=== PATIENT | female | born 1945 | race Caucasian/White ===

== ENCOUNTER 2016-12-01 02:04 | Inpatient (IN) | payer MEDICARE, OTHER ==
[2016-12-01] MEDS ORDERED: LIDOCAINE 1%/EPINEPHRINE INJ 20 ML VIAL INJ ONE (03:20)
--- NOTE | 2016-12-01 03:35 | ER Document Report ---
ED General - General Chief Complaint: Facial Injury Stated Complaint: FALL,HEAD LACERATION Notes: Patient is a 70-year-old female presents for complaint of fall. Patient says she got tackled up and her oxygen cord and fell hitting left side of her head as well as her left knee. She denies pain anywhere other than her left knee and her left hand. She does take aspirin. No other blood thinners. No other complaints at this time. She denies neck pain. She has chronic back pain but says she has no new pain in her back from the fall. TRAVEL OUTSIDE OF THE [place] IN LAST 30 DAYS: No - Related Data Allergies/Adverse Reactions: No Known Allergies Allergy (Verified 02/03/12 09:37) Past Medical History - Social History Smoking Status: Former Smoker Frequency of alcohol use: None Drug Abuse: None Family History: Reviewed & Not Pertinent Patient has suicidal ideation: No Patient has homicidal ideation: No - Past Medical History Cardiac Medical History: Reports: Hx Congestive Heart Failure - Ejection fraction of less than 25%, May 2014., Hx Coronary Artery Disease, Hx Hypertension Denies: Hx DVT, Hx Heart Attack, Hx Hypercholesterolemia, Hx Pulmonary Embolism Pulmonary Medical History: Reports: Hx COPD - 4L nasal O2 at home, Hx Pneumonia Denies: Hx Asthma Neurological Medical History: Denies: Hx Cerebrovascular Accident, Hx Seizures Endocrine Medical History: Denies: Hx Diabetes Mellitus Type 1, Hx Diabetes Mellitus Type 2, Hx Hyperthyroidism, Hx Hypothyroidism Renal/ Medical History: Denies: Hx Peritoneal Dialysis GI Medical History: Reports: Hx Gastroesophageal Reflux Disease - Mild, Hx Hiatal Hernia. Denies: Hx Cirrhosis, Hx Hepatitis, Hx Ulcer Musculoskeltal Medical History: Reports Hx Arthritis Psychiatric Medical History: Reports: Hx Depression Infectious Medical History: Denies: Hx Hepatitis Past Surgical History: Reports: Hx Cholecystectomy, Hx Orthopedic Surgery - "back surgery". Denies: Hx Hysterectomy, Hx Mastectomy, Hx Open Heart Surgery, Hx Pacemaker - Immunizations Hx Diphtheria, Pertussis, Tetanus Vaccination: Yes Hx Pneumococcal Vaccination: 08/06/13 Review of Systems - Review of Systems Notes: My Normal Review Basic REVIEW OF SYSTEMS: CONSTITUTIONAL : Denies fever, chills, or sweats. Denies recent illness. EENT: Denies eye, ear, throat, or mouth pain or symptoms. Denies nasal or sinus congestion. CARDIOVASCULAR: Denies chest pain. RESPIRATORY: Denies cough, cold, or chest congestion. Denies shortness of breath, difficulty breathing, or wheezing. GASTROINTESTINAL: Denies abdominal pain. Denies nausea, vomiting, or diarrhea. Denies constipation. Last BM: GENITOURINARY: Denies difficulty urinating, painful urination, burning, frequency, or blood in urine. MUSCULOSKELETAL: Left knee pain SKIN: Denies rash or skin lesions. NEUROLOGICAL: Denies altered mental status or loss of consciousness. Has a headache. Denies weakness or paralysis or loss of use of either side. Denies problems with gait or speech. Denies sensory or motor loss. ALL OTHER SYSTEMS REVIEWED AND NEGATIVE. Physical Exam - Vital signs Vitals: Resp Pulse Ox 11 L 100 12/01/16 05:51 12/01/16 05:51 - Notes Notes: General Appearance: Well nourished, alert, cooperative, no acute distress, no obvious discomfort. Well-appearing Vitals: reviewed, See vital signs table. Head: Bruising and laceration of the left eye. Eyes: PERRL, EOMI, Conjuctiva clear Mouth: No decreasd moisture Neck: Supple, no neck tenderness, No thyromegaly Lungs: No wheezing, No rales, No rhonci, No accessory muscle use, good air exchange bilaterally. Heart: Normal rate, Regular rythm, No murmur, no rub Abdomen: Normal BS, soft, No rigidity, No abdominal tenderness, No guarding, no rebound, no abdominal masses, no organomegaly Back: No reducible tenderness to palpation of thoracic or lumbar spine. Extremities: strength 5/5 in all extremities, good pulses in all extremities, no swelling or tenderness in the extremities, no edema. Skin: warm, dry, appropriate color, no rash Neuro: speech clear, oriented x 3, normal affect, responds appropriately to questions. Cranial nerves II through XII are intact. Distal sensation intact. Patient moves all extremities without difficulty. Course - Vital Signs Vital signs: Temp Pulse Resp BP Pulse Ox 25 H 137/57 H 96 12/01/16 07:01 12/01/16 07:01 12/01/16 07:01 - Laboratory Result Diagrams: 12/01/16 06:17 12/01/16 06:17 Laboratory results interpreted by me: 12/01/16 12/01/16 12/01/16 05:15 06:17 06:17 RBC 3.11 L Hgb 7.7 L Hct 25.7 L MCH 24.8 L MCHC 30.0 L RDW 15.1 H VBG pH 7.24 L VBG pCO2 106.3 H* VBG HCO3 44.0 H Chloride 93 L Carbon Dioxide 39 H Creatinine 0.48 L - EKG Interpretation by Me Additional EKG results interpreted by me: 12/01/16 06:15 EKG is reviewed and interpreted by me. EKG shows sinus tachycardia with rate of [address] segment elevation or depression. No ischemic T wave inversions. [place] level, QRS duration are within normal range. QTc interval slightly prolonged. Old EKG for comparison is from 09/08/2016. - Transfer of Care Notes: 12/01/16 06:22 Patient's daughter arrived and informed me that the patient has been much more sleepier than usual. She says in the past when this has occurred her, doxepin level is very high. Patient has not been confused or altered for me; however, I do trust with the daughters saying as she seems very reliable. I did obtain a venous blood gas which showed that her CO2 is 106 and her pH was 7.24. Patient is supposed to have BiPAP at home but has not yet been set up. There is some difficulty between the medical supply company ended insurance company and therefore her BiPAP machine has been delayed. At this time I do not think patient can go home being that she already had significant respiratory acidosis. I will place on BiPAP. I will speak with the hospitalist for consideration for admission. Dictation of this chart was performed using voice recognition software; therefore, there may be some unintended grammatical errors. 12/01/16 07:43 I did speak with the hospitalist. He is agreeable to admitting the patient. Patient only other abnormal finding on labs is that she does have anemia with hemoglobin 7.7. I did review her previous hemoglobin and usually ranging or from 8-9. She denies any recent bleeding, blood in her stool, black or tarry stools. Patient continues to clinically look well. Procedures - Laceration/Wound Repair head Wound length (cm): 1 Wound's Depth, Shape: Superficial Laceration pre-procedure: Chloraprep applied Wound explored: Clean Irrigated w/ Saline (mLs): 10 Wound Repaired With: Sutures Suture Size/Type: 5:0, Ethilon Number of Sutures: 2 Complications: No Discharge - Discharge Clinical Impression: Hypercapnia Anemia Qualifiers: Anemia type: unspecified type Qualified Code(s): D64.9 - Anemia, unspecified Scalp laceration Qualifiers: Encounter type: initial encounter Qualified Code(s): S01.01XA - Laceration without foreign body of scalp, initial encounter Strain of knee and leg, left Qualifiers: Encounter type: initial encounter Qualified Code(s): S86.912A - Strain of unspecified muscle(s) and tendon(s) at lower leg level, left leg, initial encounter Condition: Stable Disposition: ADMITTED INPATIENT Admitting Provider: Hospitalist Unit Admitted: [facility]
[2016-12-01 05:24] LABS: VENOUS BLOOD BASE EXCESS 14.3 mmol/L; VENOUS BLOOD PH 7.24 (7.30-7.42)
[2016-12-01 05:31] LABS: VENOUS BLOOD PCO2 106.3 mmHg (35-63)
[2016-12-01 06:34] LABS: ABSOLUTE EOSINOPHILS # (AUTO) 0.1 10^3/uL (0.0-0.6); ABSOLUTE LYMPHOCYTES (AUTO) 1.7 10^3/uL (0.5-4.7); ABSOLUTE MONOCYTES (AUTO) 0.9 10^3/uL (0.1-1.4); ABSOLUTE NEUT (AUTO) 6.7 10^3/uL (1.7-8.2); BASOPHILS % (AUTO) 0.3 % (0-2); EOSINOPHILS % (AUTO) 1.5 % (0-6); HEMATOCRIT 25.7 % (36.0-47.0); HGB HCT DIFFERENCE -2.6; LYMPHOCYTES % (AUTO) 18.1 % (13-45); MEAN CORPUSCULAR HEMOGLOBIN 24.8 pg (27.0-33.4); MEAN CORPUSCULAR VOLUME 83 fl (80-97); RED BLOOD COUNT 3.11 10^6/uL (3.72-5.28); RED CELL DISTRIBUTION WIDTH 15.1 % (11.5-14.0); SEGMENTED NEUTROPHILS % (AUTO) 71.1 % (42-78); WHITE BLOOD COUNT 9.5 10^3/uL (4.0-10.5)
[2016-12-01 06:39] LABS: HEMOGLOBIN 7.7 g/dL (12.0-15.5)
[2016-12-01 06:45] LABS: BLOOD UREA NITROGEN 11 mg/dL (7-20); CALCIUM 9.1 mg/dL (8.4-10.2); CHLORIDE 93 mmol/L (98-107); CREATININE RESULT 0.48 mg/dL (0.52-1.25); GLUCOSE 95 mg/dL (75-110); POTASSIUM 4.3 mmol/L (3.6-5.0)
[2016-12-01 06:52] LABS: ANION GAP 8 (5-19); CARBON DIOXIDE 39 mmol/L (22-30)
[2016-12-01] MEDS ORDERED: ACETAMINOPHEN 650 MG SUPP.RECT PR PRN (08:02)
[2016-12-01] MEDS ORDERED: ONDANSETRON HCL INJ/PF 4 MG/2 ML SDV IV PRN (08:02)
[2016-12-01] MEDS ORDERED: ALBUTEROL SULFATE 0.083% NEB 2.5 MG/3 ML AMPUL NEB PRN (08:02)
[2016-12-01] MEDS ORDERED: DEXTROSE 5%-1/2 NORMAL SALINE 1,000 ML IV PRN (08:09)
[2016-12-01] MEDS ORDERED: NORMAL SALINE 250 ML IV PRN ×2 (08:10)
[2016-12-01] MEDS ORDERED: METHYLPREDNISOLONE INJ 40 MG/1 ML SDV IV SCH (08:15)
[2016-12-01] MEDS ORDERED: NITROGLYCERIN 10 MG (0.4 MG/HR) PATCH.TD24 TD PRN (08:26)
[2016-12-01] MEDS ORDERED: FUROSEMIDE 20 MG TABLET PO PRN (08:26)
[2016-12-01 08:28] LABS: ALANINE AMINOTRANSFERASE 20 U/L (9-52); ALBUMIN 3.3 g/dL (3.5-5.0); ALKALINE PHOSPHATASE 79 U/L (38-126); ASPARTATE AMINO TRANSFERASE 12 U/L (14-36); BILIRUBIN,TOTAL 0.2 mg/dL (0.2-1.3); TOTAL PROTEIN 5.8 g/dL (6.3-8.2)
[2016-12-01 09:41] LABS: FOLATE > 20.00 ng/mL (>2.76)
[2016-12-01 09:56] LABS: APPEARANCE,URINE CLEAR; BILIRUBIN,URINE NEGATIVE (NEGATIVE); GLUCOSE, URINE NEGATIVE (NEGATIVE); KETONES,URINE NEGATIVE (NEGATIVE); LEUKOCYTE ESTERASE,URINE SMALL (NEGATIVE); NITRITE,URINE NEGATIVE (NEGATIVE); PROTEIN,URINE NEGATIVE (NEGATIVE); URINE SPECIFIC GRAVITY 1.008; UROBILINOGEN,URINE NEGATIVE mg/dL (<2.0)
[2016-12-01] MEDS ORDERED: (PENDING PHARMACY ID) (Citalopram Hydrobromide [Celexa 40 Mg Tablet] 1 TAB) PO SCH (10:00)
[2016-12-01] MEDS ORDERED: (PENDING PHARMACY ID) (Roflumilast [Daliresp 500 Mcg Tablet] 500 MCG) PO SCH (10:00)
[2016-12-01] MEDS: DILTIAZEM HCL 180 MG CAPSULE.CR PO SCH (10:12)
[2016-12-01] MEDS: PREDNISONE 20 MG TABLET PO SCH (10:13)
[2016-12-01] MEDS: ASPIRIN 81 MG TABLET, CHEWABLE PO SCH (10:13)
[2016-12-01] MEDS: CITALOPRAM HYDROBROMIDE 20 MG TABLET PO SCH (10:14)
[2016-12-01] MEDS: POTASSIUM CHLORIDE 10 MEQ TABLET.SA PO SCH ×2 (10:14→17:15)
[2016-12-01] MEDS: CARVEDILOL 12.5 MG TABLET PO SCH ×2 (10:14→21:12)
[2016-12-01] MEDS: FLUTICASONE NASAL SPRAY 50 MCG/SPRY 120 SPRAY/16 GM NASL SCH (10:43)
[2016-12-01] MEDS: FLUTICASONE/SALMETEROL DISKUS 500-50 MCG/DOSE IH SCH ×2 (10:43→21:13)
[2016-12-01] MEDS: ROFLUMILAST 500 MCG TABLET PO SCH (10:44)
[2016-12-01] MEDS: TIOTROPIUM BROMIDE DPI 5 CAP/KIT (18 MCG/CAP) IH SCH (10:44)
[2016-12-01 11:15] LABS: ARTERIAL BLOOD BASE EXCESS 11.8 mmol/L; ARTERIAL BLOOD O2 SATURATION 98.1 % (94-98)
--- NOTE | 2016-12-01 12:54 | EKG REPORT ---
SEVERITY:- ABNORMAL ECG - SINUS TACHYCARDIA BORDERLINE R WAVE PROGRESSION, ANTERIOR LEADS NONSPECIFIC T ABNORMALITIES, LATERAL LEADS : Confirmed by: Susan Ho MD 01-Dec-2016 12:53:50
[2016-12-01] MEDS: ALBUTEROL SULFATE 0.083% NEB 2.5 MG/3 ML AMPUL NEB SCH ×2 (14:43→19:34)
--- NOTE | 2016-12-01 16:47 | PDOC H&P ---
History of Present Illness Admission Date/PCP: 12/01/16 08:02 KAILEE WOLF, Patient complains of: Drowsiness History of Present Illness: SMITH IRAHETA is a 70 year old female that presents to the emergency department after sustaining a fall resulting in a facial laceration that was sutured in the emergency department. Patient has had issues with somnolence associated with her oxygen dependent COPD. She was noted to be hypercapnic in the emergency department and placed on BiPAP. At the time of my evaluation she is alert and oriented and answers questions appropriately. She request to have BiPAP taken off. She also requested something to eat. Past Medical History Cardiac Medical History: Reports: Congestive Heart Failure - Ejection fraction of less than 25%, May 2014., Coronary Artery Disease, Hypertension Denies: DVT, Myocardial Infarction, Hyperlipidema, Pulmonary Embolism Pulmonary Medical History: Reports: Chronic Obstructive Pulmonary Disease (COPD ) - 4L nasal O2 at home, Pneumonia Denies: Asthma Neurological Medical History: Denies: Seizures Endocrine Medical History: Denies: Diabetes Mellitus Type 1, Diabetes Mellitus Type 2, Hyperthyroidism, Hypothyroidism GI Medical History: Reports: Gastroesophageal Reflux Disease - Mild, Hiatal Hernia Denies: Cirrhosis, Hepatitis Musculoskeltal Medical History: Reports: Arthritis Psychiatric Medical History: Reports: Depression Hematology: Reports: Anemia Denies: Sickle Cell Disease Past Surgical History Past Surgical History: Reports: Cholecystectomy, Orthopedic Surgery - "back surgery", Other - Last colonoscopy many years ago Denies: Amputation, Hysterectomy, Mastectomy, Pacemaker Social History Information Source: Patient Lives with: Family - This with Smoking Status: Former Smoker Number of Years Smokin Last Time Smoked: 09/06/2016 Frequency of Alcohol Use: None Hx Recreational Drug Use: No Drugs: None Hx Prescription Drug Abuse: No - Advance Directive Resuscitation Status: Full Code Family History Family History: COPD Parental Family History Reviewed: Yes Children Family History Reviewed: Yes Sibling(s) Family History Reviewed.: Yes Medication/Allergy Home Medications: Nitroglycerin [Nitro-Dur 10 mg (0.4MG/Hr) Transdermal Patch] 1 patch TD QAM PRN 03/22/14 Aspirin [Aspirin 81 mg Chewable Tablet] 81 mg NG DAILY #0 tab.chew 03/30/14 Esomeprazole Magnesium [Nexium] 40 mg PO BID 03/30/14 Potassium Chloride [Klor-Con 10 Meq Tablet.sa] 20 meq PO BID 12/07/14 Roflumilast [Daliresp 500 mcg Tablet] 500 mcg PO DAILY 12/07/14 Fluticasone Propionate [Flonase Nasal [place] 50 Mcg/[place] 16 gm] 1 spray NASL DAILY 03/18/15 Carvedilol [Coreg 6.25 mg Tablet] 12.5 mg PO Q12 #0 tablet 03/24/15 Albuterol Sulfate [Albuterol Sulfate 2.5mg/3 mL] 1 vial IH Q6 06/25/15 Albuterol Sulfate [Ventolin Hfa] 2 puff IH Q4 PRN 06/25/15 Citalopram Hydrobromide [Celexa 40 mg Tablet] 1 tab PO DAILY 06/25/15 Fluticasone/Salmeterol [Advair 500-50 Diskus 14 Dose/Diskus] 1 inh IH Q12H 06/25 Guaifenesin/Pseudoephedrne HCl [Mucinex D ER 1,200-120 mg Tab] 1 each PO Q12 Nitroglycerin [Nitrostat 0.4 mg (1/150 Gr) Tabs 25/Bottle] 1 tab SL Q5MP PRN Pramipexole Di-HCl [Pramipexole Dihydrochloride] 0.25 mg PO QHS 06/25/15 Triamcinolone Acetonide [Aristocort 0.1% Cream] 1 applic TP TID 06/25/15 Montelukast Sodium [Singulair 10 mg Tablet] 10 mg PO QHS #0 tablet 06/28/15 Diltiazem HCl [Cardizem Cd 180 mg Capsule] 180 mg PO DAILY #0 capsule.cr Ipratropium/Albuterol Sulfate [Duoneb 3 ml Ampul] 3 ml NEB [id number] #0 vial.neb 03/28/16 Tiotropium [place] [Spiriva Handihaler 5 Cap/Kit (18 Mcg/Cap)] 1 cap IH DAILY # 0 kit 03/28/16 Furosemide [Lasix 20 mg Tablet] 20 mg PO ASDIR PRN 09/09/16 Acetaminophen [Tylenol 325 mg Tablet] 650 mg PO Q4HP PRN #0 tablet 09/15/16 Allergies/Adverse Reactions: No Known Allergies Allergy (Verified 02/03/12 09:37) Review of Systems Constitutional: ABSENT: chills, fever(s), headache(s), weight gain, weight loss Eyes: ABSENT: visual disturbances Ears: ABSENT: hearing changes Cardiovascular: ABSENT: chest pain, dyspnea on exertion, edema, orthropnea, palpitations Respiratory: ABSENT: cough, hemoptysis Gastrointestinal: ABSENT: abdominal pain, constipation, diarrhea, hematemesis, hematochezia, nausea, vomiting Genitourinary: ABSENT: dysuria, hematuria Musculoskeletal: ABSENT: joint swelling Integumentary: ABSENT: rash, wounds Neurological: ABSENT: abnormal gait, abnormal speech, confusion, dizziness, focal weakness, syncope Psychiatric: ABSENT: anxiety, depression, homidical ideation, suicidal ideation Endocrine: ABSENT: cold intolerance, heat intolerance, polydipsia, polyuria Hematologic/Lymphatic: ABSENT: easy bleeding, easy bruising Physical Exam Vital Signs: Temp Pulse Resp BP Pulse Ox 97.9 F 74 25 H 101/56 L 99 12/01/16 02:11 12/01/16 15:39 12/01/16 14:46 12/01/16 13:00 12/01/16 14:46 Intake & Output 11/30/16 12/01/16 12/02/16 06:59 06:59 06:59 Weight 58.1 kg PHYSICAL EXAM: GENERAL: Appears well, no acute distress HEENT: Normocephalic, no scleral icterus, conjunctiva clear, EOEM intact, PERRLA , moist mucous membranes NECK: trachea midline, no thyromegally RESPIRATORY: Faint bilateral wheezes, good air excursion CARDIAC: Regular rate and rhythm, no murmur/garrison/rub ABDOMEN: Soft, no distension, no tenderness, no guarding, normal bowel sounds, negative Gonzalez sign RECTAL: deferred : deferred EXTREMITIES: No edema, cyanosis, clubbing MUSCULOSKELETAL: No joint swelling or deformity VASCULAR: normal peripheral pulses NEUROLOGIC: Alert, oriented to person/place/time, normal speech, cranial nerves grossly intact, 5/5 strength in all extremities, tactile sensation intact in all extremities SKIN: Laceration over left eye with sutures intact. PSYCHIATRIC: Normal mood, normal affect Results Laboratory Results: 12/01/16 12/01/16 12/01/16 08:24 09:17 09:22 Carbonic Acid HCO3/H2CO3 Ratio ABG pH ABG pCO2 ABG pO2 ABG HCO3 ABG O2 Saturation ABG Base Excess FiO2 Urine Color YELLOW Urine Appearance CLEAR Urine pH 6.0 Ur Specific [place] 1.008 Urine Protein NEGATIVE Urine Glucose (UA) NEGATIVE Urine Ketones NEGATIVE Urine Blood SMALL H Urine Nitrite NEGATIVE Ur Leukocyte Esterase SMALL H Urine WBC (Auto) 3 Urine RBC (Auto) 1 Stool Occult Blood NEGATIVE Blood Type O POSITIVE Antibody Screen NEGATIVE 12/01/16 10:38 Carbonic Acid 2.88 H HCO3/H2CO3 Ratio 14:1 ABG pH 7.27 L ABG pCO2 95.6 H* ABG pO2 133.8 H ABG HCO3 42.5 H ABG O2 Saturation 98.1 H ABG Base Excess 11.8 FiO2 2L Urine Color Urine Appearance Urine pH Ur Specific [place] Urine Protein Urine Glucose (UA) Urine Ketones Urine Blood Urine Nitrite Ur Leukocyte Esterase Urine WBC (Auto) Urine RBC (Auto) Stool Occult Blood Blood Type Antibody Screen Impressions: Head CT 12/01/16 03:19 IMPRESSION: No acute findings. Knee X-Ray 12/01/16 03:19 IMPRESSION: Moderate left knee effusion. Moderate osteoarthritis. Chest X-Ray 12/01/16 05:39 IMPRESSION: COPD. NO ACUTE RADIOGRAPHIC FINDING IN THE CHEST. Assessment & Plan - Diagnosis (1) Encephalopathy Is this a current diagnosis for this admission?: YesPlan: Resolved. Due to hypercapnea. (2) COPD exacerbation Is this a current diagnosis for this admission?: YesPlan: Start prednisone, nebulizer treatments. (3) Facial laceration Is this a current diagnosis for this admission?: YesPlan: Sutured in the emergency department. Patient will need suture removal on 2016. (4) Acute and chronic respiratory failure ([id number]) Qualifiers: Respiratory failure complication: hypoxia and hypercapnia Qualified Code(s): J96.21 - Acute and chronic respiratory failure with hypoxia Is this a current diagnosis for this admission?: YesPlan: Patient is chronic oxygen dependent. She is a chronic CO2 retainer so recommend titrating oxygen down to maintain O2 sat 80-92%. (5) Anemia Qualifiers: Anemia type: unspecified type Qualified Code(s): D64.9 - Anemia, unspecified Is this a current diagnosis for this admission?: YesPlan: Check Hemoccult of stool. Transfuse 1 unit PRBC. Check anemia panel. Consult hematology. Patient would probably benefit from outpatient GI workup as well. (6) DVT prophylaxis Is this a current diagnosis for this admission?: YesPlan: SCDs. Avoid pharmacologic prophylaxis secondary to anemia requiring transfusion and head injury. - Time Time Spent: Greater than 70 Minutes
[2016-12-01] MEDS: LANSOPRAZOLE 30 MG TAB.RAP.DR PO SCH (17:15)
[2016-12-01] MEDS: MONTELUKAST SODIUM 10 MG TABLET PO SCH (21:11)
[2016-12-01] MEDS: PRAMIPEXOLE DI-HCL 0.25 MG TABLET PO SCH (21:11)
[2016-12-01 23:50] LABS: ABSOLUTE LYMPHOCYTES (AUTO) 1.1 10^3/uL (0.5-4.7); ABSOLUTE MONOCYTES (AUTO) 0.3 10^3/uL (0.1-1.4); ABSOLUTE NEUT (AUTO) 5.9 10^3/uL (1.7-8.2); BASOPHILS % (AUTO) 0.2 % (0-2); EOSINOPHILS % (AUTO) 0.1 % (0-6); HEMATOCRIT 26.7 % (36.0-47.0); HEMOGLOBIN 8.4 g/dL (12.0-15.5); HGB HCT DIFFERENCE -1.5; LYMPHOCYTES % (AUTO) 14.6 % (13-45); MEAN CORPUSCULAR HEMOGLOBIN 26.2 pg (27.0-33.4); MEAN CORPUSCULAR HGB CONC 31.4 g/dL (32.0-36.0); MEAN CORPUSCULAR VOLUME 83 fl (80-97); MONOCYTES % (AUTO) 4.2 % (3-13); RED BLOOD COUNT 3.21 10^6/uL (3.72-5.28); RED CELL DISTRIBUTION WIDTH 15.4 % (11.5-14.0); SEGMENTED NEUTROPHILS % (AUTO) 80.9 % (42-78); WHITE BLOOD COUNT 7.4 10^3/uL (4.0-10.5)
[2016-12-02] MEDS: ALBUTEROL SULFATE 0.083% NEB 2.5 MG/3 ML AMPUL NEB SCH ×4 (02:00→19:56)
[2016-12-02] MEDS: LANSOPRAZOLE 30 MG TAB.RAP.DR PO SCH ×2 (06:14→17:04)
[2016-12-02 06:44] LABS: ABSOLUTE LYMPHOCYTES (AUTO) 1.9 10^3/uL (0.5-4.7); ABSOLUTE MONOCYTES (AUTO) 0.7 10^3/uL (0.1-1.4); ABSOLUTE NEUT (AUTO) 5.8 10^3/uL (1.7-8.2); BASOPHILS % (AUTO) 0.2 % (0-2); EOSINOPHILS % (AUTO) 0.2 % (0-6); HEMATOCRIT 28.1 % (36.0-47.0); HEMOGLOBIN 8.8 g/dL (12.0-15.5); HGB HCT DIFFERENCE -1.7; LYMPHOCYTES % (AUTO) 22.8 % (13-45); MEAN CORPUSCULAR HEMOGLOBIN 25.9 pg (27.0-33.4); MEAN CORPUSCULAR HGB CONC 31.3 g/dL (32.0-36.0); MEAN CORPUSCULAR VOLUME 83 fl (80-97); MONOCYTES % (AUTO) 8.5 % (3-13); RED BLOOD COUNT 3.38 10^6/uL (3.72-5.28); RED CELL DISTRIBUTION WIDTH 15.7 % (11.5-14.0); SEGMENTED NEUTROPHILS % (AUTO) 68.3 % (42-78); WHITE BLOOD COUNT 8.5 10^3/uL (4.0-10.5)
[2016-12-02 06:55] LABS: ARTERIAL BLOOD BASE EXCESS 13.8 mmol/L; ARTERIAL BLOOD O2 SATURATION 90.3 % (94-98)
[2016-12-02 07:02] LABS: BLOOD UREA NITROGEN 13 mg/dL (7-20); CALCIUM 9.2 mg/dL (8.4-10.2); CHLORIDE 97 mmol/L (98-107); CREATININE RESULT 0.56 mg/dL (0.52-1.25); GLUCOSE 94 mg/dL (75-110); MAGNESIUM 1.9 mg/dL (1.6-2.3); POTASSIUM 4.4 mmol/L (3.6-5.0); SODIUM 142.2 mmol/L (137-145)
[2016-12-02 07:09] LABS: ANION GAP 6 (5-19); CARBON DIOXIDE 39 mmol/L (22-30)
[2016-12-02 07:17] LABS: FREE T3 2.4 pg/mL (2.77-5.27)
[2016-12-02 07:31] LABS: THYROID STIMULATING HORMONE 0.48 uIU/mL (0.47-4.68)
--- NOTE | 2016-12-02 08:15 | PDOC CONSULTATION ---
Consultation Consult Date: 12/02/16 Attending physician:: HUGH PEGUERO MD Consult reason:: Anemia History of Present Illness Admission Date/PCP: 12/01/16 08:02 KAILEE WOLF, Patient complains of: anemia History of Present Illness: 70-year-old female with known history of severe COPD, hypercapnic respiratory failure, O2 dependent, who presents with increasing shortness of breath, weakness. She denies any black tarry stool, hematochezia, hematemesis, however she has had irregular bowels with constipation alternating with diarrhea now for about 1 year. Previously she lost significant weight but over the last year it's been stable overall. Upon presentation her hemoglobin was in the 8 range, iron studies were done which showed a low iron saturation and ferritin of only 12. Hemoccult was negative. Past Medical History Cardiac Medical History: Reports: Congestive Heart Failure - Ejection fraction of less than 25%, May 2014., Coronary Artery Disease, Hypertension Denies: DVT, Myocardial Infarction, Hyperlipidema, Pulmonary Embolism Pulmonary Medical History: Reports: Chronic Obstructive Pulmonary Disease (COPD ) - 4L nasal O2 at home, Pneumonia Denies: Asthma Neurological Medical History: Denies: Seizures Endocrine Medical History: Denies: Diabetes Mellitus Type 1, Diabetes Mellitus Type 2, Hyperthyroidism, Hypothyroidism GI Medical History: Reports: Gastroesophageal Reflux Disease - Mild, Hiatal Hernia Denies: Cirrhosis, Hepatitis Musculoskeltal Medical History: Reports: Arthritis Psychiatric Medical History: Reports: Depression Hematology: Reports: Anemia Denies: Sickle Cell Disease Past Surgical History Past Surgical History: Reports: Cholecystectomy, Orthopedic Surgery - "back surgery", Other - Last colonoscopy many years ago Denies: Amputation, Hysterectomy, Mastectomy, Pacemaker Social History Lives with: Family - This with Smoking Status: Former Smoker Number of Years Smokin Last Time Smoked: 09/06/2016 Frequency of Alcohol Use: None Hx Recreational Drug Use: No Drugs: None Hx Prescription Drug Abuse: No - Advance Directive Resuscitation Status: Full Code Family History Family History: COPD Parental Family History Reviewed: Yes Children Family History Reviewed: Yes Sibling(s) Family History Reviewed.: Yes Medication/Allergy Home Medications: Nitroglycerin [Nitro-Dur 10 mg (0.4MG/Hr) Transdermal Patch] 1 patch TD QAM PRN 03/22/14 Aspirin [Aspirin 81 mg Chewable Tablet] 81 mg NG DAILY #0 tab.chew 03/30/14 Esomeprazole Magnesium [Nexium] 40 mg PO BID 03/30/14 Potassium Chloride [Klor-Con 10 Meq Tablet.sa] 20 meq PO BID 12/07/14 Roflumilast [Daliresp 500 mcg Tablet] 500 mcg PO DAILY 12/07/14 Fluticasone Propionate [Flonase Nasal [place] 50 Mcg/[place] 16 gm] 1 spray NASL DAILY 03/18/15 Carvedilol [Coreg 6.25 mg Tablet] 12.5 mg PO Q12 #0 tablet 03/24/15 Albuterol Sulfate [Albuterol Sulfate 2.5mg/3 mL] 1 vial IH Q6 06/25/15 Albuterol Sulfate [Ventolin Hfa] 2 puff IH Q4 PRN 06/25/15 Citalopram Hydrobromide [Celexa 40 mg Tablet] 1 tab PO DAILY 06/25/15 Fluticasone/Salmeterol [Advair 500-50 Diskus 14 Dose/Diskus] 1 inh IH Q12H 06/25 Guaifenesin/Pseudoephedrne HCl [Mucinex D ER 1,200-120 mg Tab] 1 each PO Q12 Nitroglycerin [Nitrostat 0.4 mg (1/150 Gr) Tabs 25/Bottle] 1 tab SL Q5MP PRN Pramipexole Di-HCl [Pramipexole Dihydrochloride] 0.25 mg PO QHS 06/25/15 Triamcinolone Acetonide [Aristocort 0.1% Cream] 1 applic TP TID 06/25/15 Montelukast Sodium [Singulair 10 mg Tablet] 10 mg PO QHS #0 tablet 06/28/15 Diltiazem HCl [Cardizem Cd 180 mg Capsule] 180 mg PO DAILY #0 capsule.cr Ipratropium/Albuterol Sulfate [Duoneb 3 ml Ampul] 3 ml NEB [id number] #0 vial.neb 03/28/16 Tiotropium [place] [Spiriva Handihaler 5 Cap/Kit (18 Mcg/Cap)] 1 cap IH DAILY # 0 kit 03/28/16 Furosemide [Lasix 20 mg Tablet] 20 mg PO ASDIR PRN 11/04/16 Acetaminophen [Tylenol 325 mg Tablet] 650 mg PO Q4HP PRN #0 tablet 09/15/16 Allergies/Adverse Reactions: No Known Allergies Allergy (Verified 02/03/12 09:37) Review of Systems Constitutional: PRESENT: fatigue, weakness Cardiovascular: PRESENT: dyspnea on exertion Gastrointestinal: ABSENT: abdominal pain, constipation, diarrhea, hematemesis, hematochezia, nausea, vomiting Neurological: ABSENT: abnormal gait, abnormal speech, confusion, dizziness, focal weakness, syncope Endocrine: PRESENT: cold intolerance Physical Exam Vital Signs: Temp Pulse Resp BP Pulse Ox 98.0 F 72 16 125/63 92 12/02/16 04:12 12/02/16 07:41 12/02/16 07:41 12/02/16 04:12 12/02/16 07:41 Intake & Output 12/01/16 12/02/16 12/03/16 06:59 06:59 06:59 Intake Total 1571 Output Total 900 Balance 671 Weight 56.9 kg General appearance: PRESENT: mild distress Head exam: PRESENT: atraumatic Mouth exam: PRESENT: dry mucosa Respiratory exam: PRESENT: accessory muscle use, crackles, decreased breath sounds GI/Abdominal exam: PRESENT: normal bowel sounds, soft. ABSENT: distended, guarding, mass, organolmegaly, rebound, tenderness Rectal exam: PRESENT: deferred Neurological exam: PRESENT: alert, awake, oriented to person, oriented to place , oriented to time, oriented to situation, CN II-XII grossly intact. ABSENT: motor sensory deficit Results Laboratory Results: 12/02/16 06:17 12/02/16 06:17 12/01/16 12/01/16 12/01/16 08:24 09:17 09:22 WBC RBC Hgb Hct MCV MCH MCHC RDW Plt Count Seg Neutrophils % Lymphocytes % Monocytes % Eosinophils % Basophils % Absolute Neutrophils Absolute Lymphocytes Absolute Monocytes Absolute Eosinophils Absolute Basophils Carbonic Acid HCO3/H2CO3 Ratio ABG pH ABG pCO2 ABG pO2 ABG HCO3 ABG O2 Saturation ABG Base Excess FiO2 Sodium Potassium Chloride Carbon Dioxide Anion Gap BUN Creatinine Est GFR ( Amer) Est GFR (Non-Af Amer) Glucose Calcium Magnesium TSH Free T4 Free T3 pg/mL Urine Color YELLOW Urine Appearance CLEAR Urine pH 6.0 Ur Specific [place] 1.008 Urine Protein NEGATIVE Urine Glucose (UA) NEGATIVE Urine Ketones NEGATIVE Urine Blood SMALL H Urine Nitrite NEGATIVE Ur Leukocyte Esterase SMALL H Urine WBC (Auto) 3 Urine RBC (Auto) 1 Stool Occult Blood NEGATIVE Blood Type O POSITIVE Antibody Screen NEGATIVE 12/01/16 12/01/16 12/02/16 10:38 23:30 06:17 WBC 7.4 8.5 RBC 3.21 L 3.38 L Hgb 8.4 L 8.8 L Hct 26.7 L 28.1 L MCV 83 83 MCH 26.2 L 25.9 L MCHC 31.4 L 31.3 L RDW 15.4 H 15.7 H Plt Count 295 303 Seg Neutrophils % 80.9 H 68.3 Lymphocytes % 14.6 22.8 Monocytes % 4.2 8.5 Eosinophils % 0.1 0.2 Basophils % 0.2 0.2 Absolute Neutrophils 5.9 5.8 Absolute Lymphocytes 1.1 1.9 Absolute Monocytes 0.3 0.7 Absolute Eosinophils 0.0 0.0 Absolute Basophils 0.0 0.0 Carbonic Acid 2.88 H HCO3/H2CO3 Ratio 14:1 ABG pH 7.27 L ABG pCO2 95.6 H* ABG pO2 133.8 H ABG HCO3 42.5 H ABG O2 Saturation 98.1 H ABG Base Excess 11.8 FiO2 2L Sodium Potassium Chloride Carbon Dioxide Anion Gap BUN Creatinine Est GFR ( Amer) Est GFR (Non-Af Amer) Glucose Calcium Magnesium TSH Free T4 Free T3 pg/mL Urine Color Urine Appearance Urine pH Ur Specific [place] Urine Protein Urine Glucose (UA) Urine Ketones Urine Blood Urine Nitrite Ur Leukocyte Esterase Urine WBC (Auto) Urine RBC (Auto) Stool Occult Blood Blood Type Antibody Screen 12/02/16 12/02/16 12/02/16 06:17 06:17 06:45 WBC RBC Hgb Hct MCV MCH MCHC RDW Plt Count Seg Neutrophils % Lymphocytes % Monocytes % Eosinophils % Basophils % Absolute Neutrophils Absolute Lymphocytes Absolute Monocytes Absolute Eosinophils Absolute Basophils Carbonic Acid 2.20 H HCO3/H2CO3 Ratio 18:1 ABG pH 7.37 ABG pCO2 73.1 H* ABG pO2 62.6 L ABG HCO3 41.4 H ABG O2 Saturation 90.3 L ABG Base Excess 13.8 FiO2 1.5L Sodium 142.2 Potassium 4.4 Chloride 97 L Carbon Dioxide 39 H Anion Gap 6 BUN 13 Creatinine 0.56 Est GFR ( Amer) > 60 Est GFR (Non-Af Amer) > 60 Glucose 94 Calcium 9.2 Magnesium 1.9 TSH 0.48 Free T4 1.38 Free T3 pg/mL 2.40 L Urine Color Urine Appearance Urine pH Ur Specific [place] Urine Protein Urine Glucose (UA) Urine Ketones Urine Blood Urine Nitrite Ur Leukocyte Esterase Urine WBC (Auto) Urine RBC (Auto) Stool Occult Blood Blood Type Antibody Screen Impressions: Head CT 12/01/16 03:19 IMPRESSION: No acute findings. Knee X-Ray 12/01/16 03:19 IMPRESSION: Moderate left knee effusion. Moderate osteoarthritis. Chest X-Ray 12/01/16 05:39 IMPRESSION: COPD. NO ACUTE RADIOGRAPHIC FINDING IN THE CHEST. Assessment & Plan - Diagnosis (1) Anemia Qualifiers: Anemia type: iron deficiency Iron deficiency anemia type: chronic blood loss Qualified Code(s): D50.0 - Iron deficiency anemia secondary to blood loss (chronic) Is this a current diagnosis for this admission?: YesPlan: Unsure of cause, but blood loss anemia would be the first thing that needs to be ruled out, we will give IV iron today, we will do CT of the chest abdomen pelvis to rule out malignancy. She definitely needs GI evaluation but unfortunately we don't have any gastroenterology available today. We will follow closely. Hold on blood transfusion for now. - Time Time Spent: 50 to 70 Minutes Critical Time spent with patient: 25-34 minutes Medications reviewed and adjusted accordingly: Yes - Inpatient Certification Based on my medical assessment, after consideration of the patient's comorbidities, presenting symptoms, or acuity I expect that the services needed warrant INPATIENT care.: Yes I certify that my determination is in accordance with my understanding of Medicare's requirements for reasonable and necessary INPATIENT services [42 CFR 412.3e].: Yes Medical Necessity: Need For Continuous Telemetry Monitoring, Need for Nebulizer Therapy and Monitoring of Response, Risk of Complication if Not Cared For in Hospital
[2016-12-02] MEDS: CITALOPRAM HYDROBROMIDE 20 MG TABLET PO SCH (09:42)
[2016-12-02] MEDS: POTASSIUM CHLORIDE 10 MEQ TABLET.SA PO SCH ×2 (09:43→17:05)
[2016-12-02] MEDS: ASPIRIN 81 MG TABLET, CHEWABLE PO SCH (09:43)
[2016-12-02] MEDS: PREDNISONE 20 MG TABLET PO SCH (09:43)
[2016-12-02] MEDS: FERROUS SULFATE 325 MG TABLET PO SCH (09:43)
[2016-12-02] MEDS: DILTIAZEM HCL 180 MG CAPSULE.CR PO SCH (09:44)
[2016-12-02] MEDS: CARVEDILOL 12.5 MG TABLET PO SCH ×2 (09:44→21:13)
[2016-12-02] MEDS: ROFLUMILAST 500 MCG TABLET PO SCH (09:45)
[2016-12-02] MEDS: FLUTICASONE NASAL SPRAY 50 MCG/SPRY 120 SPRAY/16 GM NASL SCH (09:45)
[2016-12-02] MEDS: FLUTICASONE/SALMETEROL DISKUS 500-50 MCG/DOSE IH SCH ×2 (09:46→21:13)
[2016-12-02] MEDS: TIOTROPIUM BROMIDE DPI 5 CAP/KIT (18 MCG/CAP) IH SCH (09:46)
--- NOTE | 2016-12-02 10:01 | PDOC CONSULTATION ---
History of Present Illness Admission Date/PCP: 12/01/16 08:02 KAILEE WOLF, History of Present Illness: SMITH IRAHETA is a 70 year old female with history of end stage severe COPD , respiratory failure with hypoxia and hypercapnia. She is home o2 dependent. Patient presented to the hospital after tripping over her oxygen cord and falling down hitting head. required stitches over left eye brow but no other significant issues from fall. However, family had noticed that over the last several days patient had been more sleepy and not acting like herself. With a history of CO2 retention and blood gas was obtained in the ED with CO2 levels > 100. Patient was placed on BIPAP over night and CO2 improved some. On my exam patient was wearing her normal prescribed O2 via nasal cannula with no difficulties stating she is feeling much better. She is seen by Dr. Brewer at our office and we are currently trying to get her a home BIPAP device, however have had problems getting approval through insurance. Patient has no complaints of increased productive cough, chest pain, fever, chills, nausea,vomiting, or diarrhea. Past Medical History Cardiac Medical History: Reports: Congestive Heart Failure - Ejection fraction of less than 25%, May 2014., Coronary Artery Disease, Hypertension Denies: DVT, Myocardial Infarction, Hyperlipidema, Pulmonary Embolism Pulmonary Medical History: Reports: Chronic Obstructive Pulmonary Disease (COPD ) - 4L nasal O2 at home, Pneumonia Denies: Asthma Neurological Medical History: Denies: Seizures Endocrine Medical History: Denies: Diabetes Mellitus Type 1, Diabetes Mellitus Type 2, Hyperthyroidism, Hypothyroidism GI Medical History: Reports: Gastroesophageal Reflux Disease - Mild, Hiatal Hernia Denies: Cirrhosis, Hepatitis Musculoskeltal Medical History: Reports: Arthritis Psychiatric Medical History: Reports: Depression Hematology: Reports: Anemia Denies: Sickle Cell Disease Past Surgical History Past Surgical History: Reports: Cholecystectomy, Orthopedic Surgery - "back surgery", Other - Last colonoscopy many years ago Denies: Amputation, Hysterectomy, Mastectomy, Pacemaker Social History Lives with: Family - This with Smoking Status: Former Smoker Number of Years Smokin Last Time Smoked: 09/06/2016 Passive smoke exposure as: Both Frequency of Alcohol Use: None Hx Recreational Drug Use: No Drugs: None Hx Prescription Drug Abuse: No - Advance Directive Resuscitation Status: Full Code Family History Family History: COPD Parental Family History Reviewed: Yes Children Family History Reviewed: Yes Sibling(s) Family History Reviewed.: Yes Medication/Allergy Home Medications: Nitroglycerin [Nitro-Dur 10 mg (0.4MG/Hr) Transdermal Patch] 1 patch TD QAM PRN 03/22/14 Aspirin [Aspirin 81 mg Chewable Tablet] 81 mg NG DAILY #0 tab.chew 03/30/14 Esomeprazole Magnesium [Nexium] 40 mg PO BID 03/30/14 Potassium Chloride [Klor-Con 10 Meq Tablet.sa] 20 meq PO BID 12/07/14 Roflumilast [Daliresp 500 mcg Tablet] 500 mcg PO DAILY 12/07/14 Fluticasone Propionate [Flonase Nasal [place] 50 Mcg/[place] 16 gm] 1 spray NASL DAILY 03/18/15 Carvedilol [Coreg 6.25 mg Tablet] 12.5 mg PO Q12 #0 tablet 03/24/15 Albuterol Sulfate [Albuterol Sulfate 2.5mg/3 mL] 1 vial IH Q6 06/25/15 Albuterol Sulfate [Ventolin Hfa] 2 puff IH Q4 PRN 06/25/15 Citalopram Hydrobromide [Celexa 40 mg Tablet] 1 tab PO DAILY 06/25/15 Fluticasone/Salmeterol [Advair 500-50 Diskus 14 Dose/Diskus] 1 inh IH Q12H 06/25 Guaifenesin/Pseudoephedrne HCl [Mucinex D ER 1,200-120 mg Tab] 1 each PO Q12 Nitroglycerin [Nitrostat 0.4 mg (1/150 Gr) Tabs 25/Bottle] 1 tab SL Q5MP PRN Pramipexole Di-HCl [Pramipexole Dihydrochloride] 0.25 mg PO QHS 06/25/15 Triamcinolone Acetonide [Aristocort 0.1% Cream] 1 applic TP TID 06/25/15 Montelukast Sodium [Singulair 10 mg Tablet] 10 mg PO QHS #0 tablet 06/28/15 Diltiazem HCl [Cardizem Cd 180 mg Capsule] 180 mg PO DAILY #0 capsule.cr Ipratropium/Albuterol Sulfate [Duoneb 3 ml Ampul] 3 ml NEB [id number] #0 vial.neb 03/28/16 Tiotropium [place] [Spiriva Handihaler 5 Cap/Kit (18 Mcg/Cap)] 1 cap IH DAILY # 0 kit 03/28/16 Furosemide [Lasix 20 mg Tablet] 20 mg PO ASDIR PRN 09/09/16 Acetaminophen [Tylenol 325 mg Tablet] 650 mg PO Q4HP PRN #0 tablet 09/15/16 Allergies/Adverse Reactions: No Known Allergies Allergy (Verified 02/03/12 09:37) Review of Systems Constitutional: PRESENT: weakness Eyes: ABSENT: visual disturbances Ears: ABSENT: hearing changes Cardiovascular: ABSENT: chest pain Respiratory: PRESENT: as per HPI Gastrointestinal: ABSENT: abdominal pain, diarrhea, vomiting Hematologic/Lymphatic: PRESENT: easy bruising Physical Exam Vital Signs: Temp Pulse Resp BP Pulse Ox 98.0 F 66 19 104/82 92 12/01/16 16:02 12/01/16 16:02 12/01/16 16:02 12/01/16 16:02 12/01/16 16:02 Intake & Output 11/30/16 12/01/16 12/02/16 06:59 06:59 06:59 Weight 58.1 kg General appearance: PRESENT: no acute distress, well-developed, well-nourished Head exam: PRESENT: atraumatic Eye exam: PRESENT: PERRLA Ear exam: PRESENT: normal external ear exam Mouth exam: PRESENT: neck supple Neck exam: PRESENT: full ROM Respiratory exam: PRESENT: decreased breath sounds, prolonged expiratory phas, symmetrical, unlabored Cardiovascular exam: PRESENT: RRR, +S1, +S2 Pulses: PRESENT: normal radial pulses Vascular exam: PRESENT: normal capillary refill Musculoskeletal exam: PRESENT: full ROM Neurological exam: PRESENT: oriented to person, oriented to place, oriented to time, oriented to situation Results Laboratory Results: 12/01/16 12/01/16 12/01/16 08:24 09:17 09:22 Carbonic Acid HCO3/H2CO3 Ratio ABG pH ABG pCO2 ABG pO2 ABG HCO3 ABG O2 Saturation ABG Base Excess FiO2 Urine Color YELLOW Urine Appearance CLEAR Urine pH 6.0 Ur Specific [place] 1.008 Urine Protein NEGATIVE Urine Glucose (UA) NEGATIVE Urine Ketones NEGATIVE Urine Blood SMALL H Urine Nitrite NEGATIVE Ur Leukocyte Esterase SMALL H Urine WBC (Auto) 3 Urine RBC (Auto) 1 Stool Occult Blood NEGATIVE Blood Type O POSITIVE Antibody Screen NEGATIVE 12/01/16 10:38 Carbonic Acid 2.88 H HCO3/H2CO3 Ratio 14:1 ABG pH 7.27 L ABG pCO2 95.6 H* ABG pO2 133.8 H ABG HCO3 42.5 H ABG O2 Saturation 98.1 H ABG Base Excess 11.8 FiO2 2L Urine Color Urine Appearance Urine pH Ur Specific [place] Urine Protein Urine Glucose (UA) Urine Ketones Urine Blood Urine Nitrite Ur Leukocyte Esterase Urine WBC (Auto) Urine RBC (Auto) Stool Occult Blood Blood Type Antibody Screen Impressions: Head CT 12/01/16 03:19 IMPRESSION: No acute findings. Knee X-Ray 12/01/16 03:19 IMPRESSION: Moderate left knee effusion. Moderate osteoarthritis. Chest X-Ray 12/01/16 05:39 IMPRESSION: COPD. NO ACUTE RADIOGRAPHIC FINDING IN THE CHEST. Assessment & Plan - Diagnosis (1) Acute and chronic respiratory failure ([id number]) Qualifiers: Respiratory failure complication: hypoxia and hypercapnia Qualified Code(s): J96.21 - Acute and chronic respiratory failure with hypoxia Is this a current diagnosis for this admission?: YesPlan: This patient has severe chronic respiratory failure and COPD. Bipap has been failed during this admission as on Bipap the patients PCO2 has remained at 73.1 as shown on ABG done on 12/02/2016. I am ordering NIV therapy because of its AVAPS AE mode and faster responding AVAPS rate. The severity of this patients disease is such that failure to provide non-invasive ventilator therapy on a daily basis will likely lead to future hospital re-admission and life threatening situations. Order has been placed for device and will get device ordered prior to hospital discharge. (2) Steroid-dependent COPD Is this a current diagnosis for this admission?: Yes
[2016-12-02] MEDS ORDERED: OXYCODONE HCL IR 5 MG TABLET PO PRN (13:09)
--- NOTE | 2016-12-02 15:49 | PDOC PROGRESS REPORT ---
Subjective Progress Note for:: 12/02/16 Subjective:: Patient has no complaints. Her breathing feels better today. Patient denies fever, chills, headache, new focal weakness, chest pain, shortness of breath, abdominal pain, nausea, vomiting, diarrhea, constipation. Physical Exam Vital Signs: Temp Pulse Resp BP Pulse Ox 98.9 F 77 16 132/48 H 94 12/02/16 11:45 12/02/16 14:00 12/02/16 13:52 12/02/16 11:45 12/02/16 13:52 Intake & Output 12/01/16 12/02/16 12/03/16 06:59 06:59 06:59 Intake Total 1571 Output Total 900 Balance 671 Weight 56.9 kg GENERAL: No acute distress HEENT: Conjunctiva clear, nonicteric, moist mucous membranes, no JVD, midline trachea RESPIRATORY: Clear to auscultation bilaterally, no wheezes, no rhonchi CARDIAC: Regular rate and rhythm, no murmurs/gallops/rubs ABDOMEN: Soft, nondistended, nontender, positive bowel sounds, no rebound, no guarding EXTREMETIES: No edema, cyanosis, clubbing NEUROLOGIC: Alert, oriented to person/place/time, CN's grossly intact, no focal deficits SKIN: No rash, wounds PSYCH: Normal mood, normal affect Results Laboratory Results: 12/02/16 06:17 12/02/16 06:17 12/01/16 12/01/16 12/02/16 08:24 23:30 06:17 WBC 7.4 8.5 RBC 3.21 L 3.38 L Hgb 8.4 L 8.8 L Hct 26.7 L 28.1 L MCV 83 83 MCH 26.2 L 25.9 L MCHC 31.4 L 31.3 L RDW 15.4 H 15.7 H Plt Count 295 303 Seg Neutrophils % 80.9 H 68.3 Lymphocytes % 14.6 22.8 Monocytes % 4.2 8.5 Eosinophils % 0.1 0.2 Basophils % 0.2 0.2 Absolute Neutrophils 5.9 5.8 Absolute Lymphocytes 1.1 1.9 Absolute Monocytes 0.3 0.7 Absolute Eosinophils 0.0 0.0 Absolute Basophils 0.0 0.0 Carbonic Acid HCO3/H2CO3 Ratio ABG pH ABG pCO2 ABG pO2 ABG HCO3 ABG O2 Saturation ABG Base Excess FiO2 Sodium Potassium Chloride Carbon Dioxide Anion Gap BUN Creatinine Est GFR ( Amer) Est GFR (Non-Af Amer) Glucose Calcium Magnesium TSH Free T4 Free T3 pg/mL Blood Type O POSITIVE Antibody Screen NEGATIVE 12/02/16 12/02/16 12/02/16 06:17 06:17 06:45 WBC RBC Hgb Hct MCV MCH MCHC RDW Plt Count Seg Neutrophils % Lymphocytes % Monocytes % Eosinophils % Basophils % Absolute Neutrophils Absolute Lymphocytes Absolute Monocytes Absolute Eosinophils Absolute Basophils Carbonic Acid 2.20 H HCO3/H2CO3 Ratio 18:1 ABG pH 7.37 ABG pCO2 73.1 H* ABG pO2 62.6 L ABG HCO3 41.4 H ABG O2 Saturation 90.3 L ABG Base Excess 13.8 FiO2 1.5L Sodium 142.2 Potassium 4.4 Chloride 97 L Carbon Dioxide 39 H Anion Gap 6 BUN 13 Creatinine 0.56 Est GFR ( Amer) > 60 Est GFR (Non-Af Amer) > 60 Glucose 94 Calcium 9.2 Magnesium 1.9 TSH 0.48 Free T4 1.38 Free T3 pg/mL 2.40 L Blood Type Antibody Screen 12/01/16 09:17 Clean Catch Midstream Urine Culture - Final Mixed Urogenital Soco Impressions: Head CT 12/01/16 03:19 IMPRESSION: No acute findings. Knee X-Ray 12/01/16 03:19 IMPRESSION: Moderate left knee effusion. Moderate osteoarthritis. Chest X-Ray 12/01/16 05:39 IMPRESSION: COPD. NO ACUTE RADIOGRAPHIC FINDING IN THE CHEST. Abdomen/Pelvis CT 12/02/16 00:00 IMPRESSION: Minimal airspace disease in the posterior right upper lobe and bilateral lower lobes at the posterior costophrenic sulci Sigmoid diverticulosis without definite CT signs of acute diverticulitis. Post cholecystectomy. Chest CT 12/02/16 00:00 IMPRESSION: Minimal airspace disease in the posterior right upper lobe and bilateral lower lobes at the posterior costophrenic sulci Sigmoid diverticulosis without definite CT signs of acute diverticulitis. Post cholecystectomy. Assessment & Plan - Diagnosis (1) Acute and chronic respiratory failure ([id number]) Qualifiers: Respiratory failure complication: hypoxia and hypercapnia Qualified Code(s): J96.21 - Acute and chronic respiratory failure with hypoxia Is this a current diagnosis for this admission?: YesPlan: Patient is chronic oxygen dependent. She is a chronic CO2 retainer so recommend titrating oxygen down to maintain O2 sat 80-92%. (2) Encephalopathy Is this a current diagnosis for this admission?: YesPlan: Resolved. Secondary to hypercapnia. (3) COPD exacerbation Is this a current diagnosis for this admission?: YesPlan: Continue prednisone, nebulizer treatments. Probably around baseline at this point. She has a propensity toward CO2 retention so we should titrate oxygen down to maintain O2 sat in the 80-92% range. CT of the chest shows minimal bilateral airspace disease so I will start patient on doxycycline 100 mg twice daily. (4) Facial laceration Is this a current diagnosis for this admission?: YesPlan: Sutured in the emergency department. Patient will need suture removal on 2016. (5) Anemia Qualifiers: Anemia type: iron deficiency Iron deficiency anemia type: chronic blood loss Qualified Code(s): D50.0 - Iron deficiency anemia secondary to blood loss (chronic) Is this a current diagnosis for this admission?: YesPlan: Hemoccult negative. Transfused 1 unit PRBC. Iron deficiency noted on anemia panel. Hematology consult appreciated. Patient would probably benefit from outpatient GI workup as well. Continue iron supplementation. CT chest/abdomen/pelvis showed no definite evidence of malignancy. (6) DVT prophylaxis Is this a current diagnosis for this admission?: YesPlan: SCDs. Avoid pharmacologic prophylaxis secondary to anemia requiring transfusion and head injury. - Time Time Spent with patient: 35 or more minutes Anticipated discharge: Home Within: within 48 hours
[2016-12-02] MEDS: DOXYCYCLINE HYCLATE 100 MG TABLET PO SCH (17:04)
[2016-12-02] MEDS ORDERED: FERUMOXYTOL (NON-ESRD) 510 MG/NS 100 ML IV ONE ×2 (18:00)
[2016-12-02] MEDS: PRAMIPEXOLE DI-HCL 0.25 MG TABLET PO SCH (21:12)
[2016-12-02] MEDS: MONTELUKAST SODIUM 10 MG TABLET PO SCH (21:12)
[2016-12-03] MEDS: ALBUTEROL SULFATE 0.083% NEB 2.5 MG/3 ML AMPUL NEB SCH ×4 (02:20→20:15)
[2016-12-03 04:42] LABS: ABSOLUTE BASOPHILS # (AUTO) 0.1 10^3/uL (0.0-0.2); ABSOLUTE LYMPHOCYTES (AUTO) 1.9 10^3/uL (0.5-4.7); ABSOLUTE MONOCYTES (AUTO) 0.9 10^3/uL (0.1-1.4); ABSOLUTE NEUT (AUTO) 7.1 10^3/uL (1.7-8.2); BASOPHILS % (AUTO) 0.5 % (0-2); EOSINOPHILS % (AUTO) 0.1 % (0-6); HEMATOCRIT 30.5 % (36.0-47.0); HEMOGLOBIN 9.6 g/dL (12.0-15.5); HGB HCT DIFFERENCE -1.7; LYMPHOCYTES % (AUTO) 19.4 % (13-45); MEAN CORPUSCULAR HEMOGLOBIN 26.1 pg (27.0-33.4); MEAN CORPUSCULAR HGB CONC 31.4 g/dL (32.0-36.0); MEAN CORPUSCULAR VOLUME 83 fl (80-97); MONOCYTES % (AUTO) 8.6 % (3-13); RED BLOOD COUNT 3.67 10^6/uL (3.72-5.28); SEGMENTED NEUTROPHILS % (AUTO) 71.4 % (42-78)
[2016-12-03 05:01] LABS: BLOOD UREA NITROGEN 20 mg/dL (7-20); CALCIUM 9.8 mg/dL (8.4-10.2); CHLORIDE 96 mmol/L (98-107); CREATININE RESULT 0.66 mg/dL (0.52-1.25); GLUCOSE 95 mg/dL (75-110); POTASSIUM 4.8 mmol/L (3.6-5.0); SODIUM 141.6 mmol/L (137-145)
[2016-12-03 05:22] LABS: ANION GAP 9 (5-19)
[2016-12-03] MEDS: LANSOPRAZOLE 30 MG TAB.RAP.DR PO SCH ×2 (05:23→18:29)
[2016-12-03] MEDS: DOXYCYCLINE HYCLATE 100 MG TABLET PO SCH ×2 (05:23→18:28)
[2016-12-03 05:29] LABS: CARBON DIOXIDE 37 mmol/L (22-30)
[2016-12-03 06:29] LABS: ARTERIAL BLOOD BASE EXCESS 15.2 mmol/L; ARTERIAL BLOOD O2 SATURATION 88.5 % (94-98)
[2016-12-03] MEDS: FERROUS SULFATE 325 MG TABLET PO SCH (10:02)
[2016-12-03] MEDS: DILTIAZEM HCL 180 MG CAPSULE.CR PO SCH (10:02)
[2016-12-03] MEDS: ASPIRIN 81 MG TABLET, CHEWABLE PO SCH (10:02)
[2016-12-03] MEDS: PREDNISONE 20 MG TABLET PO SCH (10:02)
[2016-12-03] MEDS: CARVEDILOL 12.5 MG TABLET PO SCH ×2 (10:03→21:36)
[2016-12-03] MEDS: POTASSIUM CHLORIDE 10 MEQ TABLET.SA PO SCH ×2 (10:03→18:29)
[2016-12-03] MEDS: CITALOPRAM HYDROBROMIDE 20 MG TABLET PO SCH (10:04)
[2016-12-03] MEDS: OXYCODONE HCL IR 5 MG TABLET PO PRN ×3 (10:04→21:32)
[2016-12-03] MEDS: ROFLUMILAST 500 MCG TABLET PO SCH (10:05)
[2016-12-03] MEDS: TIOTROPIUM BROMIDE DPI 5 CAP/KIT (18 MCG/CAP) IH SCH (10:05)
[2016-12-03] MEDS: FLUTICASONE NASAL SPRAY 50 MCG/SPRY 120 SPRAY/16 GM NASL SCH (10:05)
[2016-12-03] MEDS: FLUTICASONE/SALMETEROL DISKUS 500-50 MCG/DOSE IH SCH ×2 (10:05→21:35)
--- NOTE | 2016-12-03 10:48 | PROGRESS NOTE E ---
Progress Note NAME: SMITH IRAHETA : 1945 AGE: 70Y DATE: 12/03/2016 ROOM: 302 SUBJECTIVE: The patient is a pleasant 70-year-old female who has a history of severe endstage COPD, respiratory failure, hypoxia, hypercapnic, oxygen dependent. The patient is and she came to the emergency room and she had ABG, which showed CO2 more than 100 and she was placed on BiPAP. She had iron deficiency anemia and received blood transfusion. She is doing a little better today. OBJECTIVE: GENERAL: Patient lying in bed not in distress. Still complaining of weakness. VITAL SIGNS: Blood pressure is 136/57. Respiratory rate is 20. Saturation 94% on 2 liters. HEENT: Head normocephalic. She had a wound to the left eye above the eyebrow. Eyes: Pupils round. Conjunctivae are normal. NECK: Supple. No thyromegaly. No JVD. CARDIOVASCULAR: Inspection is normal. Normal S1 heart sound. No murmur. CHEST: On palpation, there is no pain or tenderness. LUNGS: Clear to auscultation. Decreased air entry bilaterally. Very few crackles or wheezing. ABDOMEN: Bowel sounds active. No organomegaly. MUSCULOSKELETAL: No edema. NEUROLOGIC: Awake, alert. SKIN: There is no rash. HEMATOLOGIC/LYMPHOCYTIC: No lymphadenopathy. LABORATORY: White blood count is 10. Hemoglobin is 9.6. Potassium 4.8. Sodium 142. Creatinine 0.6. ABG with pH 7.4, pO2 69.9. ASSESSMENT: 1. Acute on chronic hypoxic hypercapnic respiratory failure secondary to chronic obstructive pulmonary disease. There is slight improvement. 2. Encephalopathy, probably secondary to hypercapnia, improving. 3. Chronic obstructive pulmonary disease exacerbation, doing better. 4. Facial lacerations following fall. 5. Iron deficiency anemia, status post transfusion. 6. Deep venous thrombosis prophylaxis. 7. Mechanical fall. PLAN: 1. We will continue the patient's current management. 2. The patient on oxygen and she is also on doxycycline 100 mg daily. 3. Continue inhaler. 4. Ambulate the patient. 5. Continue steroids. 6. We will get physical therapy to evaluate her today. 7. Probably discharge home later today or tomorrow morning. DICTATING PHYSICIAN: FRANCISCO FLOOD M.D. [id number] JENY#: [id number] ID: [id number] JOB#: [id number] ACCT: [id number] cc: > DULCE
--- NOTE | 2016-12-03 11:22 | PDOC PROGRESS REPORT ---
Subjective Progress Note for:: 12/03/16 Subjective:: Patient feeling better this morning, reviewed CT imaging with her, no evidence of metastatic disease Physical Exam Vital Signs: Temp Pulse Resp BP Pulse Ox 97.8 F 69 16 151/59 H 94 12/03/16 07:26 12/03/16 07:36 12/03/16 07:36 12/03/16 07:26 12/03/16 07:36 Intake & Output 12/02/16 12/03/16 12/04/16 06:59 06:59 06:59 Intake Total 1571 1053 Output Total 900 2200 Balance 671 -1147 Weight 56.9 kg 56.1 kg General appearance: PRESENT: no acute distress, well-developed, well-nourished Head exam: PRESENT: atraumatic, normocephalic Eye exam: PRESENT: conjunctiva pink, EOMI, PERRLA. ABSENT: scleral icterus Ear exam: PRESENT: normal external ear exam Mouth exam: PRESENT: moist, tongue midline Neck exam: ABSENT: carotid bruit, JVD, lymphadenopathy, thyromegaly Respiratory exam: PRESENT: clear to auscultation jaime. ABSENT: rales, rhonchi, wheezes Cardiovascular exam: PRESENT: RRR. ABSENT: diastolic murmur, rubs, systolic murmur Pulses: PRESENT: normal dorsalis pedis pul Vascular exam: PRESENT: normal capillary refill GI/Abdominal exam: PRESENT: normal bowel sounds, soft. ABSENT: distended, guarding, mass, organolmegaly, rebound, tenderness Rectal exam: PRESENT: deferred Extremities exam: PRESENT: full ROM. ABSENT: calf tenderness, clubbing, pedal edema Neurological exam: PRESENT: alert, awake, oriented to person, oriented to place , oriented to time, oriented to situation, CN II-XII grossly intact. ABSENT: motor sensory deficit Psychiatric exam: PRESENT: appropriate affect, normal mood. ABSENT: homicidal ideation, suicidal ideation Skin exam: PRESENT: dry, intact, warm. ABSENT: cyanosis, rash Results Laboratory Results: 12/03/16 04:24 12/03/16 04:24 12/03/16 12/03/16 12/03/16 04:24 04:24 05:58 WBC 10.0 RBC 3.67 L Hgb 9.6 L Hct 30.5 L MCV 83 MCH 26.1 L MCHC 31.4 L RDW 16.0 H Plt Count 306 Seg Neutrophils % 71.4 Lymphocytes % 19.4 Monocytes % 8.6 Eosinophils % 0.1 Basophils % 0.5 Absolute Neutrophils 7.1 Absolute Lymphocytes 1.9 Absolute Monocytes 0.9 Absolute Eosinophils 0.0 Absolute Basophils 0.1 Carbonic Acid 2.10 H HCO3/H2CO3 Ratio 20:1 ABG pH 7.40 ABG pCO2 69.9 H* ABG pO2 57.2 L ABG HCO3 42.4 H ABG O2 Saturation 88.5 L ABG Base Excess 15.2 FiO2 1.5L Sodium 141.6 Potassium 4.8 Chloride 96 L Carbon Dioxide 37 H Anion Gap 9 BUN 20 Creatinine 0.66 Est GFR ( Amer) > 60 Est GFR (Non-Af Amer) > 60 Glucose 95 Calcium 9.8 12/01/16 09:17 Clean Catch Midstream Urine Culture - Final Mixed Urogenital Soco Impressions: Head CT 12/01/16 03:19 IMPRESSION: No acute findings. Knee X-Ray 12/01/16 03:19 IMPRESSION: Moderate left knee effusion. Moderate osteoarthritis. Chest X-Ray 12/01/16 05:39 IMPRESSION: COPD. NO ACUTE RADIOGRAPHIC FINDING IN THE CHEST. Abdomen/Pelvis CT 12/02/16 00:00 IMPRESSION: Minimal airspace disease in the posterior right upper lobe and bilateral lower lobes at the posterior costophrenic sulci Sigmoid diverticulosis without definite CT signs of acute diverticulitis. Post cholecystectomy. Chest CT 12/02/16 00:00 IMPRESSION: Minimal airspace disease in the posterior right upper lobe and bilateral lower lobes at the posterior costophrenic sulci Sigmoid diverticulosis without definite CT signs of acute diverticulitis. Post cholecystectomy. Assessment & Plan - Diagnosis (1) Anemia Qualifiers: Anemia type: iron deficiency Iron deficiency anemia type: chronic blood loss Qualified Code(s): D50.0 - Iron deficiency anemia secondary to blood loss (chronic) Is this a current diagnosis for this admission?: YesPlan: Improved, still needs endoscopy but this can be done as an outpatient, continue for COPD exacerbation per hospitalist team, hemoglobin up to the 9 range, no need for transfusion, if she stays another 24-48 hours we have written for her to get another IV iron infusion. - Time Time Spent with patient: 15-24 minutes Critical Time spent with patient: 15-24 minutes - Inpatient Certification Based on my medical assessment, after consideration of the patient's comorbidities, presenting symptoms, or acuity I expect that the services needed warrant INPATIENT care.: Yes I certify that my determination is in accordance with my understanding of Medicare's requirements for reasonable and necessary INPATIENT services [42 CFR 412.3e].: Yes Medical Necessity: Need For Continuous Telemetry Monitoring, Need for Nebulizer Therapy and Monitoring of Response, Risk of Complication if Not Cared For in Hospital
[2016-12-03] MEDS: MONTELUKAST SODIUM 10 MG TABLET PO SCH (21:33)
[2016-12-03] MEDS: PRAMIPEXOLE DI-HCL 0.25 MG TABLET PO SCH (21:35)
[2016-12-04] MEDS: ALBUTEROL SULFATE 0.083% NEB 2.5 MG/3 ML AMPUL NEB SCH ×3 (02:10→14:00)
[2016-12-04 04:58] LABS: ABSOLUTE MONOCYTES (AUTO) 0.8 10^3/uL (0.1-1.4); ABSOLUTE NEUT (AUTO) 8.6 10^3/uL (1.7-8.2); BASOPHILS % (AUTO) 0.3 % (0-2); EOSINOPHILS % (AUTO) 0.1 % (0-6); HEMATOCRIT 30.4 % (36.0-47.0); HEMOGLOBIN 9.2 g/dL (12.0-15.5); HGB HCT DIFFERENCE -2.8; LYMPHOCYTES % (AUTO) 17.7 % (13-45); MEAN CORPUSCULAR HEMOGLOBIN 25.6 pg (27.0-33.4); MEAN CORPUSCULAR HGB CONC 30.2 g/dL (32.0-36.0); MEAN CORPUSCULAR VOLUME 85 fl (80-97); MONOCYTES % (AUTO) 7.1 % (3-13); RED BLOOD COUNT 3.59 10^6/uL (3.72-5.28); RED CELL DISTRIBUTION WIDTH 16.6 % (11.5-14.0); SEGMENTED NEUTROPHILS % (AUTO) 74.8 % (42-78); WHITE BLOOD COUNT 11.5 10^3/uL (4.0-10.5)
[2016-12-04 05:20] LABS: ANION GAP 5 (5-19); BLOOD UREA NITROGEN 19 mg/dL (7-20); CALCIUM 9.7 mg/dL (8.4-10.2); CARBON DIOXIDE 39 mmol/L (22-30); CHLORIDE 96 mmol/L (98-107); CREATININE RESULT 0.61 mg/dL (0.52-1.25); GLUCOSE 80 mg/dL (75-110); SODIUM 139.9 mmol/L (137-145)
[2016-12-04] MEDS: DOXYCYCLINE HYCLATE 100 MG TABLET PO SCH (05:51)
[2016-12-04] MEDS: LANSOPRAZOLE 30 MG TAB.RAP.DR PO SCH (05:51)
[2016-12-04] MEDS: OXYCODONE HCL IR 5 MG TABLET PO PRN ×2 (08:54→14:45)
--- NOTE | 2016-12-04 09:59 | PDOC PROGRESS REPORT ---
Subjective Progress Note for:: 12/04/16 Subjective:: No acute events overnight, patient is awaiting discharge today Physical Exam Vital Signs: Temp Pulse Resp BP Pulse Ox 98.0 F 79 16 150/62 H 96 12/04/16 07:40 12/04/16 08:00 12/04/16 08:00 12/04/16 07:40 12/04/16 08:00 Intake & Output 12/03/16 12/04/16 12/05/16 06:59 06:59 06:59 Intake Total 1053 1363 Output Total 2200 350 Balance -1147 1013 Weight 56.1 kg 56.1 kg General appearance: PRESENT: no acute distress, well-developed, well-nourished Head exam: PRESENT: atraumatic, normocephalic Eye exam: PRESENT: conjunctiva pink, EOMI, PERRLA. ABSENT: scleral icterus Ear exam: PRESENT: normal external ear exam Mouth exam: PRESENT: moist, tongue midline Neck exam: ABSENT: carotid bruit, JVD, lymphadenopathy, thyromegaly Respiratory exam: PRESENT: clear to auscultation jaime. ABSENT: rales, rhonchi, wheezes Cardiovascular exam: PRESENT: RRR. ABSENT: diastolic murmur, rubs, systolic murmur Pulses: PRESENT: normal dorsalis pedis pul Vascular exam: PRESENT: normal capillary refill GI/Abdominal exam: PRESENT: normal bowel sounds, soft. ABSENT: distended, guarding, mass, organolmegaly, rebound, tenderness Rectal exam: PRESENT: deferred Extremities exam: PRESENT: full ROM. ABSENT: calf tenderness, clubbing, pedal edema Neurological exam: PRESENT: alert, awake, oriented to person, oriented to place , oriented to time, oriented to situation, CN II-XII grossly intact. ABSENT: motor sensory deficit Psychiatric exam: PRESENT: appropriate affect, normal mood. ABSENT: homicidal ideation, suicidal ideation Skin exam: PRESENT: dry, intact, warm. ABSENT: cyanosis, rash Results Laboratory Results: 12/04/16 03:50 12/04/16 03:50 12/04/16 12/04/16 03:50 03:50 WBC 11.5 H RBC 3.59 L Hgb 9.2 L Hct 30.4 L MCV 85 MCH 25.6 L MCHC 30.2 L RDW 16.6 H Plt Count 293 Seg Neutrophils % 74.8 Lymphocytes % 17.7 Monocytes % 7.1 Eosinophils % 0.1 Basophils % 0.3 Absolute Neutrophils 8.6 H Absolute Lymphocytes 2.0 Absolute Monocytes 0.8 Absolute Eosinophils 0.0 Absolute Basophils 0.0 Sodium 139.9 Potassium 5.0 Chloride 96 L Carbon Dioxide 39 H Anion Gap 5 BUN 19 Creatinine 0.61 Est GFR ( Amer) > 60 Est GFR (Non-Af Amer) > 60 Glucose 80 Calcium 9.7 Impressions: Head CT 12/01/16 03:19 IMPRESSION: No acute findings. Knee X-Ray 12/01/16 03:19 IMPRESSION: Moderate left knee effusion. Moderate osteoarthritis. Chest X-Ray 12/01/16 05:39 IMPRESSION: COPD. NO ACUTE RADIOGRAPHIC FINDING IN THE CHEST. Abdomen/Pelvis CT 12/02/16 00:00 IMPRESSION: Minimal airspace disease in the posterior right upper lobe and bilateral lower lobes at the posterior costophrenic sulci Sigmoid diverticulosis without definite CT signs of acute diverticulitis. Post cholecystectomy. Chest CT 12/02/16 00:00 IMPRESSION: Minimal airspace disease in the posterior right upper lobe and bilateral lower lobes at the posterior costophrenic sulci Sigmoid diverticulosis without definite CT signs of acute diverticulitis. Post cholecystectomy. Assessment & Plan - Diagnosis (1) Anemia Qualifiers: Anemia type: iron deficiency Iron deficiency anemia type: chronic blood loss Qualified Code(s): D50.0 - Iron deficiency anemia secondary to blood loss (chronic) Is this a current diagnosis for this admission?: YesPlan: Iron deficiency anemia, we will give one more dose of IV iron before discharge. She will then follow-up in our office in about 3-4 weeks' time, she may require erythropoietin stimulating agent at that time. Ultimately, we will need to set up colonoscopy for her, we will do this as an outpatient. - Time Time Spent with patient: 15-24 minutes Critical Time spent with patient: 15-24 minutes Anticipated discharge: Home
[2016-12-04] MEDS: DILTIAZEM HCL 180 MG CAPSULE.CR PO SCH (10:03)
[2016-12-04] MEDS: POTASSIUM CHLORIDE 10 MEQ TABLET.SA PO SCH (10:03)
[2016-12-04] MEDS: ASPIRIN 81 MG TABLET, CHEWABLE PO SCH (10:03)
[2016-12-04] MEDS: CITALOPRAM HYDROBROMIDE 20 MG TABLET PO SCH (10:03)
[2016-12-04] MEDS: CARVEDILOL 12.5 MG TABLET PO SCH (10:04)
[2016-12-04] MEDS: FLUTICASONE/SALMETEROL DISKUS 500-50 MCG/DOSE IH SCH (10:04)
[2016-12-04] MEDS: FERROUS SULFATE 325 MG TABLET PO SCH (10:04)
[2016-12-04] MEDS: PREDNISONE 20 MG TABLET PO SCH (10:04)
[2016-12-04] MEDS: FLUTICASONE NASAL SPRAY 50 MCG/SPRY 120 SPRAY/16 GM NASL SCH (10:05)
[2016-12-04] MEDS: ROFLUMILAST 500 MCG TABLET PO SCH (10:05)
[2016-12-04] MEDS: TIOTROPIUM BROMIDE DPI 5 CAP/KIT (18 MCG/CAP) IH SCH (10:05)
--- NOTE | 2016-12-04 11:33 | DISCHARGE SUMMARY E ---
Discharge Summary NAME: SMITH IRAHETA : 1945 AGE: 70Y ADMITTED: 12/01/2016 DISCHARGED: 12/04/2016 ADMISSION DIAGNOSES: 1. Encephalopathy. 2. COPD. 3. Facial laceration. 4. Acute on chronic respiratory failure. 5. Anemia. DISCHARGE DIAGNOSES: 1. Encephalopathy. 2. Acute on chronic respiratory failure. 3. Anemia is iron-deficient anemia. 4. COPD exacerbation. 5. Facial laceration. CONSULTATION: Hematology/Oncology consult, Dr. Arenas. IMAGING: CT scan of abdomen and pelvis: Minimal airspace disease in posterior upper lobe and bilateral lower lobes. CT scan of the chest was unremarkable, minimal airspace disease. CT scan of the head was normal. Knee x-ray was unremarkable, no fracture. HOSPITAL COURSE: The patient is a pleasant 70-year-old female who has a past medical history of hypertension, coronary artery disease, systolic congestive heart failure with ejection fraction of 25. She was brought to the emergency room because of generalized weakness and drowsiness, and the patient fell at home resulting in a facial laceration. She had COPD and she is oxygen dependent. She was noted to be hypercapnic, and the patient was placed on BiPAP and was treated with steroid, antibiotics, and a small-volume nebulizer. She had a CT chest which was unremarkable except for mild airspace disease. CT head was normal. CT abdomen was also unremarkable. X-rays did not show any fracture. The patient, after she was placed on BiPAP, she improved. As well, she is on antibiotic and steroid, and today she is not wheezing and she is feeling much better, and she is saturating 93% on 2 liters which is her baseline. The patient is stable to be discharged to home today. PHYSICAL EXAMINATION: GENERAL: Upon discharge, the patient is lying in bed, comfortable, not in distress. VITAL SIGNS: Temperature is 98, blood pressure 150/62, respiratory rate is 16, saturation 96% on 2 liters. HEAD: Normocephalic/atraumatic. Pupils are equal, round, reactive to light and accommodation bilaterally. Extraocular movements intact. EARS: Tympanic membranes intact bilaterally. No discharge from the ears. NOSE: No discharge from the nose. NECK: Supple. No increased JVD. No thyromegaly. No lymphadenopathy. CARDIOVASCULAR: Normal S1, S2. Regular rate and rhythm. No murmur. No gallop. RESPIRATORY: Decreased air entry bilaterally. No wheezing. ABDOMEN: Soft, nontender. MUSCULOSKELETAL: No edema. NEUROLOGICAL: Awake, alert. SKIN: No rash. LABORATORY: White blood count 11.5, hemoglobin 9.2. Sodium 140, potassium is 5, chloride 96, carbon dioxide 39. DISCHARGE INSTRUCTIONS: Discharge the patient home. MEDICATIONS: 1. Singulair 10 mg at bedtime. 2. Lasix 20 mg p.o. daily. 3. Celexa 1 tablet daily. 4. Coreg 12.5 mg q.12 h. 5. Aspirin 81 mg daily. 6. Albuterol inhaler. 7. Tylenol p.r.n. 8. Advair 500/50 twice a day. 9. Flonase spray. 10. Nexium 40 mg b.i.d. 11. Cardizem 180 mg daily. 12. Mucinex 1200 twice a day. 13. Nitroglycerin p.r.n. 14. Daliresp 500 mcg tablets daily. 15. Potassium chloride Klor-Con 20 mEq 1 tablet p.o. b.i.d. 16. Aristocort twice a day. 17. Spiriva 1 daily. 18. Prednisone tapering. 19. Oxycodone IR 10 mg every 4 hours to 6 hours p.r.n. 20. Doxycycline 100 mg p.o. b.i.d. capsule. FOLLOWUP: Follow up with her primary care physician in 1 week. DIET: As tolerated. TIME SPENT: I spent more than 55 minutes. DICTATING PHYSICIAN: FRANCISCO FLOOD M.D. [id number] PHY#: [id number] ID: [id number] JOB#: [id number] ACCT: [id number] cc:HUGH FLOOD M.D. >
[2016-12-04] MEDS ORDERED: FERUMOXYTOL (NON-ESRD) 510 MG/NS 100 ML IV ONE ×2 (12:00)
[2016-12-04 17:37] VITALS: BP 135/52
[2016-12-05] MEDS ORDERED: FERUMOXYTOL (NON-ESRD) 510 MG/NS 100 ML IV ONE ×2 (18:00)
== END 2016-12-04 17:55 | disposition home or self-care (01) | DRG 189 ==
LOC: ER 02:04 → EH 08:02 → UNDOADMIN 08:28 → 3N 16:32
PROVIDERS: ADMIT Family Medicine; ATTEND Family Medicine
PROC: 5A09357 Assistance with Respiratory Ventilation, Less than 24 Consecutive Hours, Continuous Positive Airway Pressure (ICD-10-PCS; principal; 2016-12-01)
PROC: 3E0F73Z Introduction of Anti-inflammatory into Respiratory Tract, Via Natural or Artificial Opening (ICD-10-PCS; 2016-12-01)
PROC: 30233N1 Transfusion of Nonautologous Red Blood Cells into Peripheral Vein, Percutaneous Approach (ICD-10-PCS; 2016-12-01)
PROC: 0HQ1XZZ Repair Face Skin, External Approach (ICD-10-PCS; 2016-12-01)
DX: J96.21 Acute and chronic respiratory failure with hypoxia (principal); J44.1 Chronic obstructive pulmonary disease with (acute) exacerbation; I50.20 Unspecified systolic (congestive) heart failure; J96.22 Acute and chronic respiratory failure with hypercapnia; D50.9 Iron deficiency anemia, unspecified; I10 Essential (primary) hypertension; I25.10 Atherosclerotic heart disease of native coronary artery without angina pectoris; S01.112A Laceration without foreign body of left eyelid and periocular area, initial encounter; W18.30XA Fall on same level, unspecified, initial encounter; Y92.019 Unspecified place in single-family (private) house as the place of occurrence of the external cause; K21.9 Gastro-esophageal reflux disease without esophagitis; K44.9 Diaphragmatic hernia without obstruction or gangrene; M19.90 Unspecified osteoarthritis, unspecified site; F32.9 Major depressive disorder, single episode, unspecified; M25.462 Effusion, left knee; K57.30 Diverticulosis of large intestine without perforation or abscess without bleeding; Z79.82 Long term (current) use of aspirin; Z79.51 Long term (current) use of inhaled steroids; Z99.81 Dependence on supplemental oxygen; Z79.899 Other long term (current) drug therapy; Z90.49 Acquired absence of other specified parts of digestive tract; Z87.891 Personal history of nicotine dependence; Z83.6 Family history of other diseases of the respiratory system
CPT/HCPCS: 36415; 36430; 36600; 70450; 71010; 71260; 74177; 80048; 80076; 81001; 82272; 82607; 82728; 82746; 82803; 83540; 83550; 83735; 84439; 84443; 84466; 84481; 85025; 85045; 86850; 86900; 86901; 86920; 87086; 93005; 93010; 94660; 99285; G8978-GP; G8979-GP; J3490; J7050; J7512; P9016; Q0138

== ENCOUNTER 2017-02-22 14:17 | Inpatient (IN) | payer MEDICARE, OTHER ==
[2017-02-22] MEDS ORDERED: ASPIRIN 81 MG TABLET, CHEWABLE PO ONE (14:28)
--- NOTE | 2017-02-22 14:34 | ER Document Report ---
ED General - General Stated Complaint: BREATHING PROBLEMS Time seen by provider: 14:32 Mode of Arrival: Medic Information source: Emergency Med Personnel Notes: This is a 71-year-old female with a history of COPD, hypercapnic respiratory failure, oxygen dependent, who is brought in by EMS because of shortness of breath. EMS also reports that the patient was complaining of chest discomfort ( she is noted to have 2 nitroglycerin patches on her chest). The patient was noted to have wheezing on exam with diminished breath sounds and she was treated with albuterol and ipratropium and IV Solu-Medrol during transport to the ER. Past medical history: CHF, cardiomyopathy, coronary artery disease, hypertension , COPD. Note: Both nitroglycerin patches were taken off chest (i.e. age indeterminate). Nitropaste is been applied as a replacement. TRAVEL OUTSIDE OF THE [place] IN LAST 30 DAYS: No - HPI Onset: Just prior to arrival Onset/Duration: Sudden Quality of pain: Dull Severity: Moderate Pain Level: 2 Associated symptoms: Shortness of breath. denies: Chills, Fever Exacerbated by: Movement Relieved by: Denies Similar symptoms previously: Yes Recently seen / treated by doctor: No - Related Data Allergies/Adverse Reactions: No Known Allergies Allergy (Verified 02/03/12 09:37) Past Medical History - General Information source: [facility] Records - Social History Smoking Status: Former Smoker Cigarette use (# per day): No Chew tobacco use (# tins/day): No Frequency of alcohol use: None Drug Abuse: None Lives with: Alone Family History: COPD - Past Medical History Cardiac Medical History: Reports: Hx Congestive Heart Failure - Ejection fraction of less than 25%, May 2014., Hx Coronary Artery Disease, Hx Hypertension Denies: Hx DVT, Hx Heart Attack, Hx Hypercholesterolemia, Hx Pulmonary Embolism Pulmonary Medical History: Reports: Hx COPD - 4L nasal O2 at home, Hx Pneumonia Denies: Hx Asthma Neurological Medical History: Denies: Hx Cerebrovascular Accident, Hx Seizures Endocrine Medical History: Denies: Hx Diabetes Mellitus Type 1, Hx Diabetes Mellitus Type 2, Hx Hyperthyroidism, Hx Hypothyroidism Renal/ Medical History: Denies: Hx Peritoneal Dialysis GI Medical History: Reports: Hx Gastroesophageal Reflux Disease - Mild, Hx Hiatal Hernia. Denies: Hx Cirrhosis, Hx Hepatitis, Hx Ulcer Musculoskeltal Medical History: Reports Hx Arthritis Psychiatric Medical History: Reports: Hx Depression Infectious Medical History: Denies: Hx Hepatitis Past Surgical History: Reports: Hx Cholecystectomy, Hx Orthopedic Surgery - "back surgery", Other - Last colonoscopy many years ago. Denies: Hx Hysterectomy, Hx Mastectomy, Hx Open Heart Surgery, Hx Pacemaker - Immunizations Hx Diphtheria, Pertussis, Tetanus Vaccination: Yes Hx Pneumococcal Vaccination: 08/06/13 Review of Systems - Review of Systems Constitutional: Weakness EENT: No symptoms reported Cardiovascular: See HPI Respiratory: See HPI Gastrointestinal: No symptoms reported Genitourinary: No symptoms reported Female Genitourinary: No symptoms reported Musculoskeletal: See HPI Skin: No symptoms reported Hematologic/Lymphatic: No symptoms reported Neurological/Psychological: No symptoms reported Physical Exam - Vital signs Vitals: Temp Pulse Resp BP Pulse Ox 97.7 F 107 H 28 H 173/76 H 100 02/22/17 14:29 02/22/17 14:29 02/22/17 14:29 02/22/17 14:29 02/22/17 14:29 Notes: Physical exam: GENERAL: 71-year-old female, eyes open, appears confused. She is in respiratory distress. HEAD: Atraumatic, normocephalic. EYES: Pupils equal round and reactive to light, extraocular movements intact, sclera anicteric, conjunctiva are normal. ENT: TMs normal, nares patent, oropharynx clear without exudates. Moist mucous membranes. NECK: Normal range of motion, supple without lymphadenopathy or JVD. LUNGS: Tachypnea with bilateral wheezin. HEART: Regular rate and rhythm without murmurs, rubs or gallops. ABDOMEN: Soft, normoactive bowel sounds. No tenderness to palpation. No guarding, no rebound. No masses appreciated. EXTREMITIES: Normal range of motion, no pitting or edema. No clubbing or cyanosis. NEUROLOGICAL: Cranial nerves II through XII grossly intact. Normal speech, normal gait. PSYCH: Normal mood, normal affect. SKIN: Warm, Dry, normal turgor, no rashes or lesions noted. Course - Re-evaluation Re-evalutation: 02/22/17 17:03 I discussed the issues with patient with the patient's daughter at the bedside. At this time, the patient is full code and I have explained her the process of intubation/ventilation/medicines and at this time she wishes to have everything done in the unlikely event that she has a respiratory arrest with cardiac arrest. - Vital Signs Vital signs: Temp Pulse Resp BP Pulse Ox 97.7 F 107 H 28 H 173/76 H 100 02/22/17 14:29 02/22/17 14:29 02/22/17 14:29 02/22/17 14:29 02/22/17 16:01 - Laboratory Result Diagrams: 02/22/17 15:45 02/22/17 15:45 Laboratory results interpreted by me: 02/22/17 02/22/17 02/22/17 15:45 15:45 15:50 WBC 13.3 H Hgb 11.2 L Hct 35.3 L MCHC 31.8 L RDW 17.7 H Seg Neutrophils % 89.2 H Lymphocytes % 7.2 L Monocytes % 2.6 L Absolute Neutrophils 11.8 H Carbonic Acid 3.16 H ABG pH 7.20 L* ABG pCO2 104.9 H* ABG HCO3 40.4 H ABG Total CO2 43.7 H ABG O2 Saturation 93.7 L Chloride 95 L Carbon Dioxide 42 H* Anion Gap 4 L Glucose 172 H AST 10 L Creatine Kinase 20 L Total Protein 5.8 L Albumin 3.2 L - Diagnostic Test Radiology reviewed: Image reviewed, Reports reviewed - Chest x-ray shows no obvious infiltrate - EKG Interpretation by Me Rate: Tachycardia Rhythm: NSR - EKG shows sinus tachycardia with a ventricular rate of 107, poor R -wave progression, left axis deviation, no acute ST-T wave changes Critical Care Note - Critical Care Note Total time excluding time spent on procedures (mins): 60 Discharge - Discharge Clinical Impression: acute respiratory failure, acute exacerbation of COPD Condition: Serious Disposition: ADMITTED INPATIENT Admitting Provider: Hospitalist - Dr. Bello Unit Admitted: [facility]
[2017-02-22] MEDS ORDERED: NITROGLYCERIN 2% OINTMENT 1 GM PACKET TP ONE (14:43)
[2017-02-22] MEDS ORDERED: NORMAL SALINE 500 ML IV PRN (14:44)
[2017-02-22 15:59] LABS: ABSOLUTE EOSINOPHILS # (AUTO) 0.1 10^3/uL (0.0-0.6); ABSOLUTE MONOCYTES (AUTO) 0.3 10^3/uL (0.1-1.4); ABSOLUTE NEUT (AUTO) 11.8 10^3/uL (1.7-8.2); BASOPHILS % (AUTO) 0.2 % (0-2); EOSINOPHILS % (AUTO) 0.8 % (0-6); HEMATOCRIT 35.3 % (36.0-47.0); HEMOGLOBIN 11.2 g/dL (12.0-15.5); HGB HCT DIFFERENCE -1.7; LYMPHOCYTES % (AUTO) 7.2 % (13-45); MEAN CORPUSCULAR HEMOGLOBIN 29.1 pg (27.0-33.4); MEAN CORPUSCULAR HGB CONC 31.8 g/dL (32.0-36.0); MEAN CORPUSCULAR VOLUME 91 fl (80-97); MONOCYTES % (AUTO) 2.6 % (3-13); RED BLOOD COUNT 3.86 10^6/uL (3.72-5.28); RED CELL DISTRIBUTION WIDTH 17.7 % (11.5-14.0); SEGMENTED NEUTROPHILS % (AUTO) 89.2 % (42-78); WHITE BLOOD COUNT 13.3 10^3/uL (4.0-10.5)
[2017-02-22 16:09] LABS: ARTERIAL BLOOD BASE EXCESS 9.1 mmol/L; ARTERIAL BLOOD O2 SATURATION 93.7 % (94-98)
[2017-02-22 16:15] LABS: ALANINE AMINOTRANSFERASE 23 U/L (9-52); ALBUMIN 3.2 g/dL (3.5-5.0); ALKALINE PHOSPHATASE 88 U/L (38-126); ASPARTATE AMINO TRANSFERASE 10 U/L (14-36); BILIRUBIN,DIRECT 0.2 mg/dL (0.0-0.4); BILIRUBIN,TOTAL 0.4 mg/dL (0.2-1.3); BLOOD UREA NITROGEN 15 mg/dL (7-20); CALCIUM 8.6 mg/dL (8.4-10.2); CHLORIDE 95 mmol/L (98-107); CREATINE KINASE 20 U/L (30-135); CREATININE RESULT 0.55 mg/dL (0.52-1.25); GLUCOSE 172 mg/dL (75-110); SODIUM 141.3 mmol/L (137-145); TOTAL PROTEIN 5.8 g/dL (6.3-8.2)
[2017-02-22 16:26] LABS: CREATINE KINASE MB 0.65 ng/mL (<4.55)
[2017-02-22] MEDS ORDERED: IPRATROPIUM/ALBUTEROL 0.5-2.5 MG/3 ML AMPUL NEB ONE (16:26)
[2017-02-22 16:27] LABS: TROPONIN I < 0.012 ng/mL
[2017-02-22 16:38] LABS: ANION GAP 4 (5-19)
[2017-02-22 16:41] LABS: CARBON DIOXIDE 42 mmol/L (22-30)
[2017-02-22] MEDS ORDERED: LEVOFLOXACIN 500 MG/D5W RTU 100 ML IV ONE (17:00)
[2017-02-22] MEDS ORDERED: NORMAL SALINE 1000 ML 1,000 ML IV PRN (18:36)
[2017-02-22] MEDS ORDERED: ONDANSETRON HCL INJ/PF 4 MG/2 ML SDV IV PRN (18:36)
[2017-02-22] MEDS ORDERED: ACETAMINOPHEN 325 MG TABLET PO PRN (18:36)
[2017-02-22] MEDS ORDERED: LEVALBUTEROL HCL NEB 1.25 MG/3 ML AMPUL NEB PRN (18:36)
[2017-02-22] MEDS ORDERED: GLUCAGON,HUMAN RECOMB 1 MG INJ IM PRN (18:42)
[2017-02-22] MEDS ORDERED: DEXTROSE 40% GEL 15 GM TUBE PO PRN ×2 (18:42)
[2017-02-22] MEDS ORDERED: OXYCODONE HCL IR 5 MG TABLET PO PRN (18:42)
[2017-02-22] MEDS ORDERED: DEXTROSE 50%-WATER 25 GM/50 ML DISP.SYRIN IV PRN ×2 (18:42)
--- NOTE | 2017-02-22 18:50 | PDOC H&P ---
History of Present Illness Admission Date/PCP: 02/22/17 17:14 KAILEE WOLF, Patient complains of: Shortness of breath History of Present Illness: SMITH IRAHETA is a 71 year old female, with COPD, chronic hypoxemic respiratory failure with hypercarbia, oxygen-dependent and steroid-dependent presents to the hospital with increasing shortness of breath for the past few days. About a week ago the patient stated that she started developing shortness of breath and wheezing without any associated fever or chills. There is some sinus congestion but no sore throat. Patient started to develop chest congestion as well. She saw her channel marketing specialist who gave her antibiotics which she completed the day before admission however her shortness of breath got worse and therefore she was brought to the hospital for evaluation. Patient denies any chest pain or pleurisy. No PND or orthopnea. No increasing lower extremity edema. In the emergency room chest x-ray did not reveal any acute infiltrate, however ABG shows respiratory acidosis and therefore the patient was patient BiPAP. Steroid was given as well as bronchodilators and the patient was referred for admission. Past Medical History Past Medical History: Medication reconcillation pending verification from the patient's pharmacist Cardiac Medical History: Reports: Congestive Heart Failure - Ejection fraction of less than 25%, May 2014., Coronary Artery Disease, Hypertension Denies: DVT, Myocardial Infarction, Hyperlipidema, Pulmonary Embolism Pulmonary Medical History: Reports: Chronic Obstructive Pulmonary Disease (COPD ) - 4L nasal O2 at home, Pneumonia Denies: Asthma Neurological Medical History: Denies: Seizures Endocrine Medical History: Denies: Diabetes Mellitus Type 1, Diabetes Mellitus Type 2, Hyperthyroidism, Hypothyroidism GI Medical History: Reports: Gastroesophageal Reflux Disease - Mild, Hiatal Hernia Denies: Cirrhosis, Hepatitis Musculoskeltal Medical History: Reports: Arthritis Psychiatric Medical History: Reports: Depression Hematology: Reports: Anemia Denies: Sickle Cell Disease Past Surgical History Past Surgical History: Reports: Cholecystectomy, Orthopedic Surgery - "back surgery", Other - Last colonoscopy many years ago Denies: Amputation, Hysterectomy, Mastectomy, Pacemaker Social History Information Source: Patient Lives with: Alone Smoking Status: Former Smoker Frequency of Alcohol Use: None Hx Recreational Drug Use: No Drugs: None Hx Prescription Drug Abuse: No Family History Family History: COPD Parental Family History Reviewed: Yes Children Family History Reviewed: Yes Sibling(s) Family History Reviewed.: Yes Medication/Allergy Home Medications: Nitroglycerin [Nitro-Dur 10 mg (0.4MG/Hr) Transdermal Patch] 1 patch TD QAMP PRN 03/22/14 Esomeprazole Magnesium [Nexium] 40 mg PO Q12 03/30/14 Potassium Chloride [Klor-Con 10 Meq Tablet.sa] 20 meq PO Q12 12/07/14 Roflumilast [Daliresp 500 mcg Tablet] 500 mcg PO DAILY 12/07/14 Fluticasone Propionate [Flonase Nasal [place] 50 Mcg/[place] 16 gm] 2 spray NASL DAILY 03/18/15 Albuterol Sulfate [Albuterol Sulfate 2.5mg/3 mL] 2.5 mg NEB RTQ6 06/25/15 Albuterol Sulfate [Ventolin Hfa] 2 puff IH Q4HP PRN 06/25/15 Citalopram Hydrobromide [Celexa 40 mg Tablet] 40 mg PO DAILY 06/25/15 Fluticasone/Salmeterol [Advair 500-50 Diskus 14 Dose/Diskus] 1 puff IH Q12 06/25 Pramipexole Di-HCl [Pramipexole Dihydrochloride] 0.25 mg PO QHS 06/25/15 Montelukast Sodium [Singulair 10 mg Tablet] 10 mg PO QHS #0 tablet 06/28/15 Diltiazem HCl [Cardizem Cd 180 mg Capsule] 180 mg PO DAILY #0 capsule.cr Ipratropium/Albuterol Sulfate [Duoneb 3 ml Ampul] 3 ml [employer] [facility] [id number] #0 [email or web address] 03/28/16 Tiotropium [place] [Spiriva [place] 5 Cap/Kit (18 Mcg/Cap)] 1 cap IH DAILY # 0 kit 03/28/16 Furosemide [Lasix 20 mg Tablet] 20 mg PO DAILYP PRN 09/09/16 Prednisone [Deltasone 20 mg Tablet] 10 mg PO DAILY #30 tablet 12/04/16 Aspirin [Ecotrin 81 mg EC Tablet] 81 mg PO DAILY 02/22/17 Benzonatate [Tessalon Perles 100 mg Capsule] 100 mg PO Q8HP PRN 02/22/17 Carvedilol [Coreg 3.125 mg Tablet] 3.125 mg PO DAILY 02/22/17 Multivitamin [Daily Multiple Vitamin] 1 tab PO DAILY 02/22/17 Olanzapine [Zyprexa 2.5 mg Tablet] 2.5 mg PO DAILY 02/22/17 Oxycodone HCl [Oxy-Ir 5 mg Tablet] 10 mg PO Q4HP PRN 02/22/17 Tolterodine Tartrate [Detrol LA] 2 mg PO DAILY 02/22/17 Allergies/Adverse Reactions: No Known Allergies Allergy (Verified 02/03/12 09:37) Review of Systems Constitutional: PRESENT: weakness - Generalized. ABSENT: chills, fever(s), headache(s), night sweats, weight gain, weight loss Eyes: ABSENT: visual disturbances Ears: ABSENT: hearing changes Nose, Mouth, and Throat: ABSENT: mouth pain, sore throat, vertigo Cardiovascular: PRESENT: dyspnea on exertion - Chronic on home BiPAP and oxygen , edema - Chronic both lower extremities. ABSENT: chest pain, orthropnea, palpitations Respiratory: PRESENT: cough - No purulent expectoration, dyspnea. ABSENT: hemoptysis, sputum Gastrointestinal: ABSENT: abdominal pain, constipation, diarrhea, hematemesis, hematochezia, melena, nausea, vomiting Genitourinary: ABSENT: difficulty urinating, dysuria, hematuria Musculoskeletal: ABSENT: joint swelling Integumentary: ABSENT: pruritus, rash, wounds Neurological: ABSENT: abnormal gait, abnormal speech, confusion, dizziness, focal weakness, syncope Psychiatric: ABSENT: anxiety, depression, homidical ideation, suicidal ideation Endocrine: ABSENT: cold intolerance, heat intolerance, polydipsia, polyuria Hematologic/Lymphatic: ABSENT: easy bleeding, easy bruising Physical Exam Vital Signs: Temp Pulse Resp BP Pulse Ox 97.7 F 107 H 28 H 173/76 H 100 02/22/17 14:29 02/22/17 14:29 02/22/17 14:29 02/22/17 14:29 02/22/17 16:01 General appearance: PRESENT: no acute distress, morbidly obese, other - On BiPAP Head exam: PRESENT: atraumatic, normocephalic Eye exam: PRESENT: conjunctiva pink, EOMI, PERRLA. ABSENT: scleral icterus Ear exam: PRESENT: normal external ear exam Mouth exam: PRESENT: dry mucosa, neck supple, tongue midline Throat exam: ABSENT: post pharyngeal erythema, tonsillar erythema Neck exam: ABSENT: carotid bruit, JVD, lymphadenopathy, thyromegaly Respiratory exam: PRESENT: decreased breath sounds, rales - Dry rales posteriorly bilaterally, wheezes - Minimal bilateral. ABSENT: rhonchi Cardiovascular exam: PRESENT: RRR, +S1, +S2. ABSENT: diastolic murmur, rubs, systolic murmur Pulses: PRESENT: normal dorsalis pedis pul Vascular exam: PRESENT: normal capillary refill GI/Abdominal exam: PRESENT: normal bowel sounds, soft. ABSENT: distended - Obese, guarding, mass, organolmegaly, rebound, tenderness Rectal exam: PRESENT: deferred Extremities exam: PRESENT: full ROM, other - Trace lower extremity edema. ABSENT: calf tenderness, clubbing Neurological exam: PRESENT: alert, awake, oriented to person, oriented to place , oriented to time, oriented to situation Psychiatric exam: PRESENT: appropriate affect, normal mood. ABSENT: homicidal ideation, suicidal ideation Skin exam: PRESENT: dry, intact, warm. ABSENT: cyanosis, rash Results Impressions: Chest X-Ray 02/22/17 14:28 IMPRESSION: Poor inspiration without evidence of acute cardiopulmonary disease. Assessment & Plan - Diagnosis (1) Acute and chronic respiratory failure ([id number]) Qualifiers: Respiratory failure complication: hypoxia and hypercapnia Qualified Code(s): J96.21 - Acute and chronic respiratory failure with hypoxia Is this a current diagnosis for this admission?: Yes (2) COPD exacerbation Is this a current diagnosis for this admission?: Yes (3) Metabolic alkalosis Is this a current diagnosis for this admission?: Yes (4) Steroid-induced hyperglycemia Is this a current diagnosis for this admission?: Yes (5) Anemia Qualifiers: Anemia type: unspecified type Qualified Code(s): D64.9 - Anemia, unspecified Is this a current diagnosis for this admission?: Yes (6) Chronic systolic (congestive) heart failure Is this a current diagnosis for this admission?: Yes (7) Hypertension Qualifiers: Hypertension type: essential hypertension Qualified Code(s): I10 - Essential (primary) hypertension Is this a current diagnosis for this admission?: Yes (8) Depression Qualifiers: Depression Type: unspecified Qualified Code(s): F32.9 - Major depressive disorder, single episode, unspecified Is this a current diagnosis for this admission?: Yes (9) Coronary artery disease Qualifiers: Coronary Disease-Associated Artery/Lesion type: [place] artery [place] vs. transplanted heart: [place] heart Associated angina: without angina Qualified Code(s): I25.10 - Atherosclerotic heart disease of [place] coronary artery without angina pectoris Is this a current diagnosis for this admission?: Yes (10) GERD (gastroesophageal reflux disease) Qualifiers: Esophagitis presence: without esophagitis Qualified Code(s): K21.9 - Gastro-esophageal reflux disease without esophagitis Is this a current diagnosis for this admission?: Yes (11) Hiatal hernia Is this a current diagnosis for this admission?: Yes - Time Time Spent: 50 to 70 Minutes - Inpatient Certification Based on my medical assessment, after consideration of the patient's comorbidities, presenting symptoms, or acuity I expect that the services needed warrant INPATIENT care.: Yes I certify that my determination is in accordance with my understanding of Medicare's requirements for reasonable and necessary INPATIENT services [42 CFR 412.3e].: Yes Medical Necessity: Failure to Improve With Outpatient Therapy, Need Close Monitoring Due to Risk of Patient Decompensation, Need For Continuous Telemetry Monitoring, Need for Nebulizer Therapy and Monitoring of Response, Risk of Complication if Not Cared For in Hospital, Risk of Diagnosis Which Will Require Inpatient Eval/Care/Monitoring Post Hospital Care: D/C Rd Project Manager Documentation - Plan Summary Plan Summary: The patient will be admitted to [facility]. We will continue BiPAP, recheck ABG in the morning. Begin intravenous steroids, [id number] nebulizers. Patient just completed antibiotic therapy, we will hold any for now, elevated WBC probably related to steroids. We will send cultures. In the meantime I'll put her on sliding scale insulin for the hyperglycemia. We will begin Diamox and monitor CO2. DVT prophylaxis with Lovenox will be placed. Respiratory to titrate BiPAP per protocol. Patient requesting regular diet adamantly, and does not want any modification.
[2017-02-22 19:06] LABS: APPEARANCE,URINE SLIGHTLY-CLOUDY; BILIRUBIN,URINE NEGATIVE (NEGATIVE); GLUCOSE, URINE NEGATIVE (NEGATIVE); KETONES,URINE NEGATIVE (NEGATIVE); LEUKOCYTE ESTERASE,URINE NEGATIVE (NEGATIVE); NITRITE,URINE NEGATIVE (NEGATIVE); PROTEIN,URINE 30 mg/dL (NEGATIVE); URINE SPECIFIC GRAVITY 1.019; UROBILINOGEN,URINE NEGATIVE mg/dL (<2.0)
[2017-02-22] MEDS ORDERED: ENOXAPARIN SODIUM INJ 40 MG/0.4 ML DISP.SYRIN SUBCUT ONE ×2 (20:00→23:15)
--- NOTE | 2017-02-22 20:06 | EKG REPORT ---
SEVERITY:- BORDERLINE ECG - SINUS TACHYCARDIA ATRIAL PREMATURE COMPLEX BORDERLINE R WAVE PROGRESSION, ANTERIOR LEADS : Confirmed by: Susan Ho MD 22-Feb-2017 20:05:10
[2017-02-22] MEDS: LEVALBUTEROL HCL NEB 1.25 MG/3 ML AMPUL NEB SCH (20:13)
[2017-02-22] MEDS: IPRATROPIUM BROMIDE 0.02% NEB 0.5 MG/2.5 ML AMPUL NEB SCH (20:14)
[2017-02-22 21:14] LABS: VENOUS BLOOD BASE EXCESS 13.4 mmol/L; VENOUS BLOOD HCO3 42.5 mmol/L (20-32); VENOUS BLOOD PH 7.34 (7.30-7.42)
[2017-02-22 21:30] LABS: VENOUS BLOOD PCO2 81.3 mmHg (35-63)
[2017-02-22] MEDS ORDERED: CARVEDILOL 6.25 MG TABLET PO SCH (22:00)
[2017-02-22] MEDS ORDERED: CARVEDILOL 12.5 MG TABLET PO SCH (22:00)
[2017-02-22 23:11] LABS: VENOUS BLOOD HCO3 36.7 mmol/L (20-32); VENOUS BLOOD PH 7.31 (7.30-7.42)
[2017-02-22 23:14] LABS: VENOUS BLOOD PCO2 74.3 mmHg (35-63)
[2017-02-22] MEDS: MONTELUKAST SODIUM 10 MG TABLET PO SCH (23:16)
[2017-02-22] MEDS: ACETAZOLAMIDE 250 MG TABLET PO SCH (23:17)
[2017-02-23] MEDS: IPRATROPIUM BROMIDE 0.02% NEB 0.5 MG/2.5 ML AMPUL NEB SCH ×6 (00:18→19:55)
[2017-02-23] MEDS: LEVALBUTEROL HCL NEB 1.25 MG/3 ML AMPUL NEB SCH ×6 (00:20→19:55)
[2017-02-23 05:01] LABS: HEMATOCRIT 32.8 % (36.0-47.0); HEMOGLOBIN 10.5 g/dL (12.0-15.5); HGB HCT DIFFERENCE -1.3; MEAN CORPUSCULAR HEMOGLOBIN 28.9 pg (27.0-33.4); MEAN CORPUSCULAR HGB CONC 32.1 g/dL (32.0-36.0); MEAN CORPUSCULAR VOLUME 90 fl (80-97); RED BLOOD COUNT 3.64 10^6/uL (3.72-5.28); RED CELL DISTRIBUTION WIDTH 17.1 % (11.5-14.0); WHITE BLOOD COUNT 5.9 10^3/uL (4.0-10.5)
[2017-02-23 05:17] LABS: BLOOD UREA NITROGEN 14 mg/dL (7-20); CALCIUM 8.8 mg/dL (8.4-10.2); CREATININE RESULT 0.54 mg/dL (0.52-1.25); GLUCOSE 116 mg/dL (75-110)
[2017-02-23 05:18] LABS: ANION GAP 5 (5-19); CARBON DIOXIDE 36 mmol/L (22-30); CHLORIDE 98 mmol/L (98-107); POTASSIUM 4.3 mmol/L (3.6-5.0); SODIUM 138.8 mmol/L (137-145)
[2017-02-23] MEDS: ACETAZOLAMIDE 250 MG TABLET PO SCH ×3 (06:14→21:12)
[2017-02-23] MEDS: LANSOPRAZOLE 30 MG TAB.RAP.DR PO SCH (06:14)
[2017-02-23 07:10] LABS: ARTERIAL BLOOD BASE EXCESS 9.2 mmol/L; ARTERIAL BLOOD O2 SATURATION 94.6 % (94-98)
[2017-02-23] MEDS: ENOXAPARIN SODIUM INJ 40 MG/0.4 ML DISP.SYRIN SUBCUT SCH (08:38)
--- NOTE | 2017-02-23 09:24 | PDOC PROGRESS REPORT ---
Subjective Progress Note for:: 02/23/17 Subjective:: Patient is feeling better. Shortness of breath is less. No wheezing at this time. Denies any diarrhea, chest pain, nausea, vomiting, chills nor fever. Patient wanting to eat regular food without restrictions. Physical Exam Vital Signs: Temp Pulse Resp BP Pulse Ox 97.3 F 100 16 124/59 L 93 02/23/17 07:16 02/23/17 08:45 02/23/17 08:45 02/23/17 07:16 02/23/17 08:45 Intake & Output 02/22/17 02/23/17 02/24/17 06:59 06:59 06:59 Intake Total 680 Output Total 425 Balance 255 Weight 58 kg General appearance: PRESENT: no acute distress, cooperative, obese Head exam: PRESENT: normocephalic Eye exam: PRESENT: EOMI Mouth exam: PRESENT: moist, neck supple Neck exam: ABSENT: JVD Respiratory exam: PRESENT: decreased breath sounds, rhonchi - few. ABSENT: wheezes Cardiovascular exam: PRESENT: RRR. ABSENT: gallop GI/Abdominal exam: PRESENT: normal bowel sounds, soft. ABSENT: distended, tenderness Extremities exam: PRESENT: other - Trace lower extremity edema Neurological exam: PRESENT: alert, awake, oriented to situation Skin exam: PRESENT: dry, warm. ABSENT: cyanosis Results Laboratory Results: 02/23/17 04:35 02/23/17 04:35 02/22/17 02/22/17 02/23/17 21:00 23:00 04:35 WBC 5.9 RBC 3.64 L Hgb 10.5 L Hct 32.8 L MCV 90 MCH 28.9 MCHC 32.1 RDW 17.1 H Plt Count 207 Carbonic Acid HCO3/H2CO3 Ratio ABG pH ABG pCO2 ABG pO2 ABG HCO3 ABG O2 Saturation ABG Base Excess VBG pH 7.34 7.31 VBG pCO2 81.3 H* 74.3 H* VBG HCO3 42.5 H 36.7 H VBG Base Excess 13.4 8.0 FiO2 Sodium Potassium Chloride Carbon Dioxide Anion Gap BUN Creatinine Est GFR ( Amer) Est GFR (Non-Af Amer) Glucose Calcium 02/23/17 02/23/17 04:35 06:40 WBC RBC Hgb Hct MCV MCH MCHC RDW Plt Count Carbonic Acid 2.20 H HCO3/H2CO3 Ratio 17:1 ABG pH 7.33 L ABG pCO2 73.0 H* ABG pO2 80.7 ABG HCO3 37.5 H ABG O2 Saturation 94.6 ABG Base Excess 9.2 VBG pH VBG pCO2 VBG HCO3 VBG Base Excess FiO2 30% Sodium 138.8 Potassium 4.3 Chloride 98 Carbon Dioxide 36 H Anion Gap 5 BUN 14 Creatinine 0.54 Est GFR ( Amer) > 60 Est GFR (Non-Af Amer) > 60 Glucose 116 H Calcium 8.8 02/22/17 02/23/17 21:00 04:35 Troponin I < 0.012 < 0.012 Impressions: Chest X-Ray 02/22/17 14:28 IMPRESSION: Poor inspiration without evidence of acute cardiopulmonary disease. Assessment & Plan - Diagnosis (1) Acute and chronic respiratory failure ([id number]) Qualifiers: Respiratory failure complication: hypoxia and hypercapnia Qualified Code(s): J96.21 - Acute and chronic respiratory failure with hypoxia Is this a current diagnosis for this admission?: Yes (2) COPD exacerbation Is this a current diagnosis for this admission?: Yes (3) Metabolic alkalosis Is this a current diagnosis for this admission?: Yes (4) Steroid-induced hyperglycemia Is this a current diagnosis for this admission?: Yes (5) Anemia Qualifiers: Anemia type: unspecified type Qualified Code(s): D64.9 - Anemia, unspecified Is this a current diagnosis for this admission?: Yes (6) Chronic systolic (congestive) heart failure Is this a current diagnosis for this admission?: Yes (7) Hypertension Qualifiers: Hypertension type: essential hypertension Qualified Code(s): I10 - Essential (primary) hypertension Is this a current diagnosis for this admission?: Yes (8) Depression Qualifiers: Depression Type: unspecified Qualified Code(s): F32.9 - Major depressive disorder, single episode, unspecified Is this a current diagnosis for this admission?: Yes (9) Coronary artery disease Qualifiers: Coronary Disease-Associated Artery/Lesion type: [place] artery [place] vs. transplanted heart: [place] heart Associated angina: without angina Qualified Code(s): I25.10 - Atherosclerotic heart disease of [place] coronary artery without angina pectoris Is this a current diagnosis for this admission?: Yes (10) GERD (gastroesophageal reflux disease) Qualifiers: Esophagitis presence: without esophagitis Qualified Code(s): K21.9 - Gastro-esophageal reflux disease without esophagitis Is this a current diagnosis for this admission?: Yes (11) Hiatal hernia Is this a current diagnosis for this admission?: Yes - Time Time Spent with patient: 25-34 minutes - Plan Summary Plan Summary: Continue to wean BiPAP and transition to nasal cannula oxygen. We will start regular diet today. Continue steroids and nebulizers. WBC is now normal. Follow cultures. Hold any antibiotics for now. Continue supportive care. Discontinue intravenous fluids.
[2017-02-23] MEDS ORDERED: (PENDING PHARMACY ID) (Citalopram Hydrobromide [Celexa 40 Mg Tablet] 1 TAB) PO SCH (10:00)
[2017-02-23] MEDS: CARVEDILOL 3.125 MG TABLET PO SCH (11:17)
[2017-02-23] MEDS: DILTIAZEM HCL 180 MG CAPSULE.CR PO SCH (11:17)
[2017-02-23] MEDS: CITALOPRAM HYDROBROMIDE 20 MG TABLET PO SCH (11:18)
[2017-02-23] MEDS: DOCUSATE SODIUM 100 MG CAPSULE PO SCH ×2 (11:18→17:28)
[2017-02-23] MEDS: INSULIN REG, HUMAN 100 UNIT/ML 3 ML VIAL (PYX) SUBCUT PRN (12:44)
[2017-02-23] MEDS: METHYLPREDNISOLONE INJ 125 MG/2 ML SDV IV SCH (21:12)
[2017-02-23] MEDS: MONTELUKAST SODIUM 10 MG TABLET PO SCH (21:13)
[2017-02-24] MEDS: IPRATROPIUM BROMIDE 0.02% NEB 0.5 MG/2.5 ML AMPUL NEB SCH ×7 (00:14→23:37)
[2017-02-24] MEDS: LEVALBUTEROL HCL NEB 1.25 MG/3 ML AMPUL NEB SCH ×7 (00:15→23:37)
[2017-02-24] MEDS: METHYLPREDNISOLONE INJ 125 MG/2 ML SDV IV SCH ×2 (03:18→08:01)
[2017-02-24 07:48] LABS: ANION GAP 10 (5-19); BLOOD UREA NITROGEN 21 mg/dL (7-20); CARBON DIOXIDE 30 mmol/L (22-30); CHLORIDE 103 mmol/L (98-107); CREATININE RESULT 0.69 mg/dL (0.52-1.25); GLUCOSE 152 mg/dL (75-110); SODIUM 142.8 mmol/L (137-145)
[2017-02-24] MEDS: ACETAZOLAMIDE 250 MG TABLET PO SCH (07:57)
[2017-02-24] MEDS: LANSOPRAZOLE 30 MG TAB.RAP.DR PO SCH (07:58)
[2017-02-24] MEDS: ENOXAPARIN SODIUM INJ 40 MG/0.4 ML DISP.SYRIN SUBCUT SCH (08:01)
--- NOTE | 2017-02-24 10:41 | PDOC PROGRESS REPORT ---
Subjective Progress Note for:: 02/24/17 Subjective:: Patient continues to better. Shortness of breath is less. No chest pain or short nausea or vomiting. No diarrhea. No PND or orthopnea. Able to ambulate around the room. No chills or fever. Physical Exam Vital Signs: Temp Pulse Resp BP Pulse Ox 97.5 F 93 18 135/64 H 96 02/24/17 07:30 02/24/17 07:34 02/24/17 07:34 02/24/17 07:30 02/24/17 07:34 Intake & Output 02/23/17 02/24/17 02/25/17 06:59 06:59 06:59 Intake Total 680 2512 Output Total 425 1850 Balance 255 662 Weight 58 kg 58.4 kg General appearance: PRESENT: no acute distress, cooperative Head exam: PRESENT: normocephalic Eye exam: PRESENT: EOMI Mouth exam: PRESENT: moist, neck supple Neck exam: ABSENT: JVD Respiratory exam: PRESENT: rhonchi - few, unlabored. ABSENT: wheezes Cardiovascular exam: PRESENT: RRR. ABSENT: gallop GI/Abdominal exam: PRESENT: soft. ABSENT: distended, tenderness Extremities exam: ABSENT: pedal edema Neurological exam: PRESENT: alert, awake, oriented to situation Skin exam: PRESENT: dry, warm. ABSENT: cyanosis Results Laboratory Results: 02/23/17 04:35 02/24/17 05:43 02/24/17 05:43 Sodium 142.8 Potassium 4.0 Chloride 103 Carbon Dioxide 30 Anion Gap 10 BUN 21 H Creatinine 0.69 Est GFR ( Amer) > 60 Est GFR (Non-Af Amer) > 60 Glucose 152 H Calcium 9.0 02/23/17 12:15 Sputum Gram Stain - Final 02/23/17 12:15 Sputum Sputum Culture - Final 02/22/17 02/23/17 21:00 04:35 Troponin I < 0.012 < 0.012 Impressions: Chest X-Ray 02/22/17 14:28 IMPRESSION: Poor inspiration without evidence of acute cardiopulmonary disease. Assessment & Plan - Diagnosis (1) Acute and chronic respiratory failure ([id number]) Qualifiers: Respiratory failure complication: hypoxia and hypercapnia Qualified Code(s): J96.21 - Acute and chronic respiratory failure with hypoxia Is this a current diagnosis for this admission?: Yes (2) COPD exacerbation Is this a current diagnosis for this admission?: Yes (3) Metabolic alkalosis Is this a current diagnosis for this admission?: Yes (4) Steroid-induced hyperglycemia Is this a current diagnosis for this admission?: Yes (5) Anemia Qualifiers: Anemia type: unspecified type Qualified Code(s): D64.9 - Anemia, unspecified Is this a current diagnosis for this admission?: Yes (6) Chronic systolic (congestive) heart failure Is this a current diagnosis for this admission?: Yes (7) Hypertension Qualifiers: Hypertension type: essential hypertension Qualified Code(s): I10 - Essential (primary) hypertension Is this a current diagnosis for this admission?: Yes (8) Depression Qualifiers: Depression Type: unspecified Qualified Code(s): F32.9 - Major depressive disorder, single episode, unspecified Is this a current diagnosis for this admission?: Yes (9) Coronary artery disease Qualifiers: Coronary Disease-Associated Artery/Lesion type: [place] artery [place] vs. transplanted heart: [place] heart Associated angina: without angina Qualified Code(s): I25.10 - Atherosclerotic heart disease of [place] coronary artery without angina pectoris Is this a current diagnosis for this admission?: Yes (10) GERD (gastroesophageal reflux disease) Qualifiers: Esophagitis presence: without esophagitis Qualified Code(s): K21.9 - Gastro-esophageal reflux disease without esophagitis Is this a current diagnosis for this admission?: Yes (11) Hiatal hernia Is this a current diagnosis for this admission?: Yes - Time Time Spent with patient: 15-24 minutes - Plan Summary Plan Summary: Increase activity. Begin physical therapy. Consult regional planner for home health. Discontinue Solu-Medrol, begin prednisone. Discontinue Diamox. Bicarbonate is now normal. Continue supportive care.
[2017-02-24] MEDS: DILTIAZEM HCL 180 MG CAPSULE.CR PO SCH (10:58)
[2017-02-24] MEDS: CITALOPRAM HYDROBROMIDE 20 MG TABLET PO SCH (10:58)
[2017-02-24] MEDS: CARVEDILOL 3.125 MG TABLET PO SCH (10:58)
[2017-02-24] MEDS: DOCUSATE SODIUM 100 MG CAPSULE PO SCH ×2 (10:59→17:49)
[2017-02-24] MEDS ORDERED: PREDNISONE 20 MG TABLET PO ONE (11:00)
[2017-02-24] MEDS: INSULIN REG, HUMAN 100 UNIT/ML 3 ML VIAL (PYX) SUBCUT PRN ×3 (14:13→22:07)
[2017-02-24] MEDS: MONTELUKAST SODIUM 10 MG TABLET PO SCH (22:05)
[2017-02-25] MEDS: IPRATROPIUM BROMIDE 0.02% NEB 0.5 MG/2.5 ML AMPUL NEB SCH ×4 (03:25→15:12)
[2017-02-25] MEDS: LEVALBUTEROL HCL NEB 1.25 MG/3 ML AMPUL NEB SCH ×4 (03:25→15:12)
[2017-02-25] MEDS: LANSOPRAZOLE 30 MG TAB.RAP.DR PO SCH (06:49)
[2017-02-25] MEDS: CITALOPRAM HYDROBROMIDE 20 MG TABLET PO SCH (09:36)
[2017-02-25] MEDS: DILTIAZEM HCL 180 MG CAPSULE.CR PO SCH (09:36)
[2017-02-25] MEDS: CARVEDILOL 3.125 MG TABLET PO SCH (09:37)
[2017-02-25] MEDS: DOCUSATE SODIUM 100 MG CAPSULE PO SCH (09:37)
[2017-02-25] MEDS: ENOXAPARIN SODIUM INJ 40 MG/0.4 ML DISP.SYRIN SUBCUT SCH (09:38)
[2017-02-25] MEDS ORDERED: PREDNISONE 20 MG TABLET PO SCH (10:00)
[2017-02-25 12:11] VITALS: BP 136/61
--- NOTE | 2017-02-25 12:21 | PDOC DISCHARGE SUMMARY ---
General - Admit/Disc Date/PCP Admission Date/Primary Care Provider: 02/22/17 18:36 KAILEE Gray WOLF, Discharge Date: 02/25/17 - Discharge Diagnosis (1) Acute and chronic respiratory failure ([id number]) Is this a current diagnosis for this admission?: Yes (2) COPD exacerbation Is this a current diagnosis for this admission?: Yes (3) Metabolic alkalosis Is this a current diagnosis for this admission?: Yes (4) Steroid-induced hyperglycemia Is this a current diagnosis for this admission?: Yes (5) Anemia Is this a current diagnosis for this admission?: Yes (6) Chronic systolic (congestive) heart failure Is this a current diagnosis for this admission?: Yes (7) Hypertension Is this a current diagnosis for this admission?: Yes (8) Depression Is this a current diagnosis for this admission?: Yes (9) Coronary artery disease Is this a current diagnosis for this admission?: Yes (10) GERD (gastroesophageal reflux disease) Is this a current diagnosis for this admission?: Yes (11) Hiatal hernia Is this a current diagnosis for this admission?: Yes - Additional Information Discharge Diet: Cardiac - low-fat low-salt Discharge Activity: Activity As Tolerated, Balance Activity w/Rest, Slowly Increase Activity Home Medications: Nitroglycerin [Nitro-Dur 10 mg (0.4MG/Hr) Transdermal Patch] 1 patch TD QAMP PRN 03/22/14 Esomeprazole Magnesium [Nexium] 40 mg PO Q12 03/30/14 Potassium Chloride [Klor-Con 10 Meq Tablet.sa] 20 meq PO Q12 12/07/14 Roflumilast [Daliresp 500 mcg Tablet] 500 mcg PO DAILY 12/07/14 Fluticasone Propionate [Flonase Nasal [place] 50 Mcg/[place] 16 gm] 2 spray NASL DAILY 03/18/15 Albuterol Sulfate [Albuterol Sulfate 2.5mg/3 mL] 2.5 mg NEB RTQ6 06/25/15 Albuterol Sulfate [Ventolin Hfa] 2 puff IH Q4HP PRN 06/25/15 Citalopram Hydrobromide [Celexa 40 mg Tablet] 40 mg PO DAILY 06/25/15 Fluticasone/Salmeterol [Advair 500-50 Diskus 14 Dose/Diskus] 1 puff IH Q12 06/25 Pramipexole Di-HCl [Pramipexole Dihydrochloride] 0.25 mg PO QHS 06/25/15 Montelukast Sodium [Singulair 10 mg Tablet] 10 mg PO QHS #0 tablet 06/28/15 Diltiazem HCl [Cardizem Cd 180 mg Capsule] 180 mg PO DAILY #0 capsule.cr Ipratropium/Albuterol Sulfate [Duoneb 3 ml Ampul] 3 ml [facility] HYS1CTC #0 vial.neb 03/28/16 Tiotropium [place] [Spiriva Handihaler 5 Cap/Kit (18 Mcg/Cap)] 1 cap IH DAILY # 0 kit 03/28/16 Furosemide [Lasix 20 mg Tablet] 20 mg PO DAILYP PRN 09/09/16 Prednisone [Deltasone 20 mg Tablet] 10 mg PO DAILY #30 tablet 12/04/16 Aspirin [Ecotrin 81 mg EC Tablet] 81 mg PO DAILY 02/22/17 Benzonatate [Tessalon Perles 100 mg Capsule] 100 mg PO Q8HP PRN 02/22/17 Carvedilol [Coreg 3.125 mg Tablet] 3.125 mg PO DAILY 02/22/17 Multivitamin [Daily Multiple Vitamin] 1 tab PO DAILY 02/22/17 Olanzapine [Zyprexa 2.5 mg Tablet] 2.5 mg PO DAILY 02/22/17 Oxycodone HCl [Oxy-Ir 5 mg Tablet] 10 mg PO Q4HP PRN 02/22/17 Tolterodine Tartrate [Detrol LA] 2 mg PO DAILY 02/22/17 Prednisone [Deltasone 20 mg Tablet] 20 mg PO ASDIR #11 tablet 02/25/17 Additional Information: Continue home oxygen at 2 L nasal cannula History of Present Illness Patient complains of: Shortness of breath History of Present Illness: SMITH IRAHETA is a 71 year old female, with COPD, chronic hypoxemic respiratory failure with hypercarbia, oxygen-dependent and steroid-dependent presents to the hospital with increasing shortness of breath for the past few days. About a week ago the patient stated that she started developing shortness of breath and wheezing without any associated fever or chills. There is some sinus congestion but no sore throat. Patient started to develop chest congestion as well. She saw her table top tile setter who gave her antibiotics which she completed the day before admission however her shortness of breath got worse and therefore she was brought to the hospital for evaluation. Patient denies any chest pain or pleurisy. No PND or orthopnea. No increasing lower extremity edema. In the emergency room chest x-ray did not reveal any acute infiltrate, however ABG shows respiratory acidosis and therefore the patient was patient BiPAP. Steroid was given as well as bronchodilators and the patient was referred for admission. Hospital Course Hospital Course: The patient was admitted to [facility]. The patient was placed on BiPAP follow-up ABG shows decreasing of the PCO2. The patient was likewise placed on intravenous steroids, [id number] nebulizers. Sputum culture was done and was negative. Patient was successfully weaned from the BiPAP and placed on nasal cannula oxygen. Patient did well and wanting to go home and continue treatment on an outpatient basis. In terms of hypercarbia, acetazolamide was given and bicarbonate normalized. Pt improved and transitioned to oral steroids. The rest of hospital stay is unremarkable. Homehealth was arranged. Physical Exam Vital Signs: Temp Pulse Resp BP Pulse Ox 98.2 F 85 16 130/52 H 94 02/25/17 08:22 02/25/17 08:29 02/25/17 08:29 02/25/17 08:22 02/25/17 08:29 Intake & Output 02/24/17 02/25/17 02/26/17 06:59 06:59 06:59 Intake Total 2512 696 0 Output Total 1850 200 Balance 662 496 0 Weight 58.4 kg 60.7 kg General appearance: PRESENT: no acute distress, cooperative Head exam: PRESENT: normocephalic Eye exam: PRESENT: EOMI Mouth exam: PRESENT: moist, neck supple Throat exam: ABSENT: post pharyngeal erythema, tonsillar erythema Neck exam: ABSENT: JVD Respiratory exam: PRESENT: clear to auscultation jaime. ABSENT: rhonchi, wheezes Cardiovascular exam: PRESENT: RRR. ABSENT: gallop GI/Abdominal exam: PRESENT: normal bowel sounds, soft. ABSENT: distended, tenderness Extremities exam: ABSENT: pedal edema Neurological exam: PRESENT: alert, awake, oriented to situation Skin exam: PRESENT: dry, warm. ABSENT: cyanosis Results Laboratory Results: 02/23/17 04:35 02/24/17 05:43 04/20/17 12:15 Sputum Gram Stain - Final 02/23/17 12:15 Sputum Sputum Culture - Final 02/22/17 02/23/17 21:00 04:35 Troponin I < 0.012 < 0.012 Impressions: Chest X-Ray 02/22/17 14:28 IMPRESSION: Poor inspiration without evidence of acute cardiopulmonary disease. Qualifiers PATEINT BEING DISCHARGED WITH ANY OF THE FOLLOWING DIAGNOSIS?: No Plan Discharge Plan: Follow-up with primary care physician in one week. Time Spent: Less than 30 Minutes
== END 2017-02-25 15:14 | disposition home health service (06) | DRG 189 ==
LOC: ER 14:17 → UNDOADMIN 17:14 → EH 17:14 → 3W 21:52
DX: J96.22 Acute and chronic respiratory failure with hypercapnia (principal); J44.1 Chronic obstructive pulmonary disease with (acute) exacerbation; E87.3 Alkalosis; I50.22 Chronic systolic (congestive) heart failure; J96.21 Acute and chronic respiratory failure with hypoxia; I25.10 Atherosclerotic heart disease of native coronary artery without angina pectoris; I11.0 Hypertensive heart disease with heart failure; K21.9 Gastro-esophageal reflux disease without esophagitis; K44.9 Diaphragmatic hernia without obstruction or gangrene; M19.90 Unspecified osteoarthritis, unspecified site; F32.9 Major depressive disorder, single episode, unspecified; Z87.891 Personal history of nicotine dependence; Z99.81 Dependence on supplemental oxygen; Z79.82 Long term (current) use of aspirin; Z79.51 Long term (current) use of inhaled steroids; Z79.899 Other long term (current) drug therapy
CPT/HCPCS: 36415; 71010; 80048; 80053; 81001; 82550; 82553; 82803; 82962; 83036; 84484; 85025; 85027; 85610; 87040; 87070; 87205; 93005; 93010; 94640; 94660; 96360; 99291; G8978-GP; G8979-GP; J1650; J1815; J1956; J2930; J3490; J7030; J7040; J7512

== ENCOUNTER 2017-03-25 13:10 | Inpatient (IN) | payer MEDICARE, OTHER ==
--- NOTE | 2017-03-25 13:44 | ER Document Report ---
ED General - General Mode of Arrival: Medic Information source: Patient, Emergency Med Personnel TRAVEL OUTSIDE OF THE [place] IN LAST 30 DAYS: No - HPI Patient complains to provider of: Altered Mental Status Onset: This morning Associated symptoms: None - See narrative <FELIX GROSS - Last Filed: 03/25/17 14:35> <KARINA LARSON - Last Filed: 03/25/17 20:01> - General Chief Complaint: Altered Mental Status Stated Complaint: DIFFICULTY BREATHING Time Seen by Provider: 03/25/17 13:23 Notes: Patient is a 71-year-old female presenting to the emergency department via EMS after her family had called with concerns of altered mental status. Patient denies being confused or disoriented. Patient denies difficulty breathing, or chest pain. Patient has a history of COPD and is normally on 2 L of oxygen at home. Patient states today she turned it up to 3 L with permission from her primary care physician, Dr. Connros. EMS states that on arrival patient did not seem altered or confused, her oxygen levels were in normal range. (FELIX GROSS) - Related Data Allergies/Adverse Reactions: No Known Allergies Allergy (Verified 03/25/17 13:38) Past Medical History - General Information source: Patient - Social History Smoking Status: Former Smoker Cigarette use (# per day): No Chew tobacco use (# tins/day): No Drug Abuse: None Lives with: Family Family History: Reviewed & Not Pertinent, COPD - Past Medical History Cardiac Medical History: Reports: Hx Congestive Heart Failure - Ejection fraction of less than 25%, May 2014., Hx Coronary Artery Disease, Hx Hypertension Pulmonary Medical History: Reports: Hx COPD - 2L nasal O2 at home, Hx Pneumonia GI Medical History: Reports: Hx Gastroesophageal Reflux Disease - Mild, Hx Hiatal Hernia Musculoskeltal Medical History: Reports Hx Arthritis Psychiatric Medical History: Reports: Hx Depression Past Surgical History: Reports: Hx Cholecystectomy, Hx Orthopedic Surgery - "back surgery", Other - Last colonoscopy many years ago - Immunizations Hx Diphtheria, Pertussis, Tetanus Vaccination: Yes Hx Pneumococcal Vaccination: 08/06/13 <FELIX GROSS - Last Filed: 03/25/17 14:35> Review of Systems - Review of Systems Constitutional: No symptoms reported EENT: No symptoms reported Cardiovascular: No symptoms reported Respiratory: No symptoms reported Gastrointestinal: No symptoms reported Genitourinary: No symptoms reported Female Genitourinary: No symptoms reported Musculoskeletal: No symptoms reported Skin: No symptoms reported Hematologic/Lymphatic: No symptoms reported Neurological/Psychological: No symptoms reported -: Yes All other systems reviewed and negative <FELIX GROSS - Last Filed: 03/25/17 14:35> Physical Exam <FELIX GROSS - Last Filed: 03/25/17 14:35> <KARINA LARSON - Last Filed: 03/25/17 20:01> - Vital signs Vitals: Resp Pulse Ox 22 H 96 03/25/17 13:25 03/25/17 13:25 - Notes Notes: GENERAL: Alert, interacts well. No acute distress. HEAD: Normocephalic, atraumatic. EYES: Pupils equal, round, and reactive to light. Extraocular movements intact. ENT: Oral mucosa moist, tongue midline. NECK: Full range of motion. Supple. Trachea midline. LUNGS: Decreased air movement bilaterally, diffuse expiratory wheeze. No rales or rhonchi. No respiratory distress. HEART: Regular rate and rhythm. 3/6 systolic murmur, no gallops or rubs. ABDOMEN: Easily reducible, nontender hernia over the left abdomen. Non- distended. Bowel sounds present in all 4 quadrants. EXTREMITIES: Moves all 4 extremities spontaneously. No edema, radial and dorsalis pedis pulses 2/4 bilaterally. No cyanosis. NEUROLOGICAL: Alert and oriented x3. Normal speech. PSYCH: Normal affect, normal mood. SKIN: Warm, diaphoretic. No rashes or lesions noted. (FELIX GROSS) Temp Pulse Resp BP Pulse Ox 98.9 F 117 H 22 H 113/54 L 97 03/25/17 19:28 03/25/17 19:34 03/25/17 19:28 03/25/17 19:28 03/25/17 19:28 (KARINA LARSON) Course <FELIX GROSS - Last Filed: 03/25/17 14:35> - Laboratory Result Diagrams: 03/25/17 14:34 03/25/17 14:34 <KARINA LARSON - Last Filed: 03/25/17 20:01> - Re-evaluation Re-evalutation: 03/25/17 16:56 CBC shows leukocytosis of 13.0, mild anemia with hemoglobin 11.7, coags unremarkable, venous blood gas shows acidosis with a pH of 7.22 and a PCO2 of 103.3, oxygen is inappropriately high at 106.5. This is likely because the patient took her normal oxygen at 2 L/min via nasal cannula and turned up to 3 L /min via nasal cannula on her doctor's advice. This degree of acidosis and hypercarbia can certainly explain her intermittent confusion and fatigue reported by family. Chemistries reflect similar changes, cardiac enzymes are negative, BNP normal, head CT negative, chest x-ray shows no acute changes. EKG is nonischemic. Patient has been placed on BiPAP, discussed patient with Dr. Daniels the hospitalist, accepts the patient for admission to [facility]. (KARINA LARSON) - Vital Signs Vital signs: Temp Pulse Resp BP Pulse Ox 98.9 F 117 H 22 H 113/54 L 97 03/25/17 19:28 03/25/17 19:34 03/25/17 19:28 03/25/17 19:28 03/25/17 19:28 - Laboratory Laboratory results interpreted by me: 03/25/17 03/25/17 03/25/17 14:34 14:34 14:45 WBC 13.0 H Hgb 11.7 L MCHC 31.2 L RDW 15.3 H Seg Neutrophils % 86.6 H Lymphocytes % 6.5 L Absolute Neutrophils 11.3 H Carbonic Acid 3.11 H ABG pH 7.22 L ABG pCO2 103.3 H* ABG pO2 106.5 H ABG HCO3 41.1 H ABG Total CO2 44.3 H ABG O2 Saturation Chloride 88 L Carbon Dioxide 44 H* Creatine Kinase 21 L Total Protein 5.9 L Albumin 3.3 L 03/25/17 17:22 WBC Hgb MCHC RDW Seg Neutrophils % Lymphocytes % Absolute Neutrophils Carbonic Acid 2.48 H ABG pH 7.31 L ABG pCO2 82.3 H* ABG pO2 52.4 L ABG HCO3 40.3 H ABG Total CO2 42.8 H ABG O2 Saturation 81.8 L Chloride Carbon Dioxide Creatine Kinase Total Protein Albumin - EKG Interpretation by Me Additional EKG results interpreted by me: 03/25/17 16:57 EKG shows sinus tachycardia at a rate of 112, normal axis, normal intervals, no ST segment elevations or depressions, no T-wave inversions per my interpretation. (KARINA LARSON) Critical Care Note - Critical Care Note Total time excluding time spent on procedures (mins): 45 <KARINA LARSON - Last Filed: 03/25/17 20:01> Discharge <FELIX GROSS - Last Filed: 03/25/17 14:35> - Discharge Admitting Provider: Hospitalist - Dr. Daniels Unit Admitted: IMCU <KARINA LARSON - Last Filed: 03/25/17 20:01> - Discharge Clinical Impression: Acute respiratory acidosis Mental status alteration Qualifiers: Altered mental status type: delirium Qualified Code(s): R41.0 - Disorientation , unspecified Condition: Serious Disposition: ADMITTED INPATIENT Scribe Attestation: 03/25/17 20:01 I personally performed the services described in the documentation, reviewed and edited the documentation which was dictated to the scribe in my presence, and it accurately records my words and actions. (KARINA LARSON) Scribe Documentation - Scribe Written by Vicky:: Vicky Son, 03/25/2017 1343 acting as scribe for :: Richelle <FELIX GROSS - Last Filed: 03/25/17 14:35>
[2017-03-25] MEDS ORDERED: ASPIRIN 81 MG TABLET, CHEWABLE PO ONE (14:20)
[2017-03-25] MEDS ORDERED: ALBUTEROL SULFATE 0.083% NEB 2.5 MG/3 ML AMPUL NEB ONE (14:23)
[2017-03-25 15:06] LABS: ARTERIAL BLOOD BASE EXCESS 9.9 mmol/L; ARTERIAL BLOOD O2 SATURATION 96.4 % (94-98)
[2017-03-25 15:12] LABS: PROTHROMBIN TIME 12.1 SEC (11.4-15.4)
[2017-03-25 15:19] LABS: ABSOLUTE LYMPHOCYTES (AUTO) 0.8 10^3/uL (0.5-4.7); ABSOLUTE MONOCYTES (AUTO) 0.8 10^3/uL (0.1-1.4); ABSOLUTE NEUT (AUTO) 11.3 10^3/uL (1.7-8.2); BASOPHILS % (AUTO) 0.1 % (0-2); EOSINOPHILS % (AUTO) 0.3 % (0-6); HEMATOCRIT 37.4 % (36.0-47.0); HEMOGLOBIN 11.7 g/dL (12.0-15.5); HGB HCT DIFFERENCE -2.3; LYMPHOCYTES % (AUTO) 6.5 % (13-45); MEAN CORPUSCULAR HEMOGLOBIN 28.8 pg (27.0-33.4); MEAN CORPUSCULAR HGB CONC 31.2 g/dL (32.0-36.0); MEAN CORPUSCULAR VOLUME 92 fl (80-97); MONOCYTES % (AUTO) 6.5 % (3-13); RED BLOOD COUNT 4.05 10^6/uL (3.72-5.28); RED CELL DISTRIBUTION WIDTH 15.3 % (11.5-14.0); SEGMENTED NEUTROPHILS % (AUTO) 86.6 % (42-78)
[2017-03-25 15:23] LABS: ALANINE AMINOTRANSFERASE 23 U/L (9-52); ALBUMIN 3.3 g/dL (3.5-5.0); ALKALINE PHOSPHATASE 80 U/L (38-126); ASPARTATE AMINO TRANSFERASE 15 U/L (14-36); BILIRUBIN,DIRECT 0.4 mg/dL (0.0-0.4); BILIRUBIN,TOTAL 0.6 mg/dL (0.2-1.3); BLOOD UREA NITROGEN 10 mg/dL (7-20); CALCIUM 9.2 mg/dL (8.4-10.2); CHLORIDE 88 mmol/L (98-107); CREATINE KINASE 21 U/L (30-135); CREATININE RESULT 0.54 mg/dL (0.52-1.25); GLUCOSE 77 mg/dL (75-110); POTASSIUM 4.3 mmol/L (3.6-5.0); SODIUM 138.3 mmol/L (137-145); TOTAL PROTEIN 5.9 g/dL (6.3-8.2)
[2017-03-25 15:34] LABS: ANION GAP 6 (5-19)
[2017-03-25 15:36] LABS: CREATINE KINASE MB 0.82 ng/mL (<4.55)
[2017-03-25 15:37] LABS: CARBON DIOXIDE 44 mmol/L (22-30)
[2017-03-25 15:38] LABS: TROPONIN I < 0.012 ng/mL
[2017-03-25] MEDS ORDERED: NORMAL SALINE 1000 ML 1,000 ML IV ONE (17:00)
[2017-03-25] MEDS ORDERED: ACETAMINOPHEN 325 MG TABLET PO PRN (17:36)
[2017-03-25] MEDS ORDERED: LEVALBUTEROL HCL NEB 1.25 MG/3 ML AMPUL NEB PRN (17:36)
[2017-03-25] MEDS ORDERED: ONDANSETRON HCL INJ/PF 4 MG/2 ML SDV IV PRN (17:36)
[2017-03-25 17:46] LABS: ARTERIAL BLOOD BASE EXCESS 11.1 mmol/L; ARTERIAL BLOOD O2 SATURATION 81.8 % (94-98)
--- NOTE | 2017-03-25 17:47 | EKG REPORT ---
SEVERITY:- OTHERWISE NORMAL ECG - SINUS TACHYCARDIA : Confirmed by: Susan Ho MD 25-Mar-2017 17:45:52
[2017-03-25] MEDS ORDERED: DOCUSATE SODIUM 100 MG CAPSULE PO SCH (18:00)
[2017-03-25] MEDS ORDERED: OXYCODONE HCL IR 5 MG TABLET PO PRN (19:29)
[2017-03-25] MEDS: NORMAL SALINE 1000 ML 1,000 ML IV PRN (19:40)
[2017-03-25] MEDS: IPRATROPIUM/ALBUTEROL 0.5-2.5 MG/3 ML AMPUL NEB SCH (19:57)
[2017-03-25 20:51] LABS: APPEARANCE,URINE SLIGHTLY-CLOUDY; BILIRUBIN,URINE NEGATIVE (NEGATIVE); GLUCOSE, URINE 50 mg/dL (NEGATIVE); KETONES,URINE 80 mg/dL (NEGATIVE); LEUKOCYTE ESTERASE,URINE TRACE (NEGATIVE); NITRITE,URINE NEGATIVE (NEGATIVE); PROTEIN,URINE NEGATIVE (NEGATIVE); UROBILINOGEN,URINE NEGATIVE mg/dL (<2.0)
[2017-03-25] MEDS: ACETAZOLAMIDE 250 MG TABLET PO SCH (21:18)
--- NOTE | 2017-03-25 21:43 | HISTORY AND PHYSICAL E ---
History and Physical NAME: SMITH IRAHETA : 1945 AGE: 71Y ADMITTED: 03/25/2017 ROOM: 328 CHIEF COMPLAINT: Altered mental status. HISTORY OF PRESENT ILLNESS: The patient is a 71-year-old female with chronic congestive heart failure, systolic dysfunction, COPD oxygen dependent and steroid dependent, as well as chronic hypoxemic respiratory failure with hypercarbia, was brought to the emergency room by the family because of altered mental status. It was reported that the patient had some shortness of breath recently and oxygen at home was noted to be low; therefore, they called their primary care physician who reported they increase the oxygen to 3 L. Subsequently the patient reportedly was difficult to arouse. Her oxygen level, however, is in the normal range. The ambulance was called and the patient was brought to the emergency room for evaluation. In the emergency room, PCO2 was high at 103 and BiPAP was placed. The patient initially was on 30% PO2. On evaluation of the patient, he was still difficult to arouse. The patient was then referred for admission. No other information available at this time. Information obtained from prior records and from the emergency room records. Apparently the patient had chronic pain in the past and is on oral narcotics as well. PAST MEDICAL HISTORY: 1. Depression. 2. Anemia of chronic disease. 3. Gastroesophageal reflux disease. 4. Osteoarthritis. 5. Hypertension. 6. Coronary artery disease. 7. Congestive heart failure. 8. Systolic dysfunction with ejection fraction of 25%. 9. Oxygen and steroid dependent COPD. 10. Chronic hypoxemic respiratory failure with hypercarbia. 11. Hiatal hernia. PAST SURGICAL HISTORY: 1. Cholecystectomy. 2. Back surgery. 3. Colonoscopy. ALLERGIES: No known drug allergies. SOCIAL HISTORY: The patient is a former smoker. No reported alcohol abuse or drug abuse. FAMILY HISTORY: Reported COPD. MEDICATIONS: On her list of medication from previous admission: 1. Nitroglycerin transdermal patch 0.4 mg daily. 2. Nexium 40 mg p.o. twice a day. 3. Potassium 10 mEq 2 tablets twice a day. 4. Daliresp 500 mcg p.o. daily. 5. Flonase nasal spray. 6. Albuterol meter dose inhaler. 7. Albuterol nebulizer as needed. 8. Celexa 40 mg p.o. daily. 9. Advair 1 puff twice daily. 10. Pramipexole 0.25 mg p.o. at bedtime. 11. Singulair 10 mg p.o. at bedtime. 12. Cardizem CD 180 mg p.o. daily. 13. DuoNeb nebulizers every 6 hours while awake. 14. Spiriva 1 capsule inhalation daily. 15. Lasix 20 mg p.o. daily as needed. 16. Prednisone 10 mg p.o. daily. 17. Aspirin 81 mg p.o. daily. 18. Tessalon Perles as needed. 19. Coreg 3.125 mg p.o. daily. 20. Multivitamin. 21. Zyprexa 2.5 mg p.o. daily. 22. Oxycodone 10 mg p.o. every 4 hours as needed. 23. Detrol LA 2 mg p.o. daily. REVIEW OF SYSTEMS: Unavailable at this time due to patient altered mental status. PHYSICAL EXAMINATION: GENERAL: The patient is lethargic, arousable but easily falls back to sleep on BiPAP. She is not in acute distress at the moment. VITAL SIGNS: Blood pressure 118/65, pulse 112, respirations 18, temperature 98.3. HEENT: Normocephalic, atraumatic. Pale palpebral conjunctivae. Anicteric sclerae. Pupils are reactive to light. No nasal or oral discharge. Oral mucosa is slightly dry. NECK: Palpable lymph nodes were noted. CHEST: Symmetrical in expansion with no retractions. LUNGS: Decreased breath sounds bilateral. No audible wheezes. HEART: Regular with no gallops. No heaves or thrills were noted. ABDOMEN: Flat, soft, nontender, nondistended. Bowel sounds are present. No rebound or guarding. No bruit. LOWER EXTREMITY: Trace pretibial edema. Mucosa in nail beds with no cyanosis. INITIAL LABORATORY: WBC 13.0, hemoglobin 11.7, hematocrit 37.4 and platelet count of 334. Creatinine is normal. Bicarbonate level of 44. Sodium and potassium are normal. Glucose is 77. Troponin was negative. Pro brain natriuretic peptide normal. Chest x-ray, cardiomegaly. EKG, sinus tachycardia. Head CT scan, no acute abnormalities reported. ASSESSMENT: 1. Hpzrs-zk-prlbenc hypercarbic respiratory failure. 2. Exacerbation of COPD, oxygen and steroid dependent. 3. Mild leukocytosis. 4. Chronic congestive heart failure, systolic dysfunction with ejection fraction of 25%. 5. Coronary artery disease. 6. Hypertension. 7. Gastroesophageal reflux disease. 8. Depression. 9. Anemia of chronic disease. 10. Osteoarthritis. PLAN: We will admit the patient to IMCU. We will continue the BiPAP. We will repeat ABG. In the meantime, continue oxygen supplementation, begin intravenous steroids and [id number]-[id number] nebulizer. Begin diamox. I will put the patient on DVT prophylaxis with Lovenox. As needed antipyretics will be given for fever. I will hold the patient's pain medications at this time. I will hold any sedatives at this time. Further testing depends on the initial evaluation and response to treatments outlined above. DICTATING PHYSICIAN: KRYSTAL PANG M.D. [id number] PHY#: [id number] ID: [id number] JOB#: [id number] ACCT: [id number] cc:KRYSTAL PANG M.D. > MTDD
[2017-03-25 22:09] LABS: VENOUS BLOOD BASE EXCESS 14.7 mmol/L; VENOUS BLOOD HCO3 44.1 mmol/L (20-32); VENOUS BLOOD PH 7.32 (7.30-7.42)
[2017-03-25 22:25] LABS: VENOUS BLOOD PCO2 87.8 mmHg (35-63)
[2017-03-26] MEDS: METHYLPREDNISOLONE INJ 125 MG/2 ML SDV IV SCH ×3 (00:15→11:46)
[2017-03-26] MEDS: IPRATROPIUM/ALBUTEROL 0.5-2.5 MG/3 ML AMPUL NEB SCH ×4 (01:56→19:56)
[2017-03-26 02:37] LABS: VENOUS BLOOD BASE EXCESS 13.1 mmol/L; VENOUS BLOOD HCO3 43.1 mmol/L (20-32); VENOUS BLOOD PH 7.3 (7.30-7.42)
[2017-03-26 02:40] LABS: VENOUS BLOOD PCO2 89.3 mmHg (35-63)
[2017-03-26 02:43] LABS: HEMATOCRIT 36.6 % (36.0-47.0); HEMOGLOBIN 11.4 g/dL (12.0-15.5); HGB HCT DIFFERENCE -2.4; MEAN CORPUSCULAR HEMOGLOBIN 28.3 pg (27.0-33.4); MEAN CORPUSCULAR HGB CONC 31.2 g/dL (32.0-36.0); MEAN CORPUSCULAR VOLUME 91 fl (80-97); RED BLOOD COUNT 4.05 10^6/uL (3.72-5.28); RED CELL DISTRIBUTION WIDTH 15.2 % (11.5-14.0); WHITE BLOOD COUNT 10.7 10^3/uL (4.0-10.5)
[2017-03-26 03:01] LABS: ANION GAP 7 (5-19); BLOOD UREA NITROGEN 15 mg/dL (7-20); CALCIUM 9.4 mg/dL (8.4-10.2); CARBON DIOXIDE 38 mmol/L (22-30); CHLORIDE 93 mmol/L (98-107); CREATININE RESULT 0.96 mg/dL (0.52-1.25); GLUCOSE 135 mg/dL (75-110); POTASSIUM 3.9 mmol/L (3.6-5.0); SODIUM 138.1 mmol/L (137-145)
[2017-03-26] MEDS: LANSOPRAZOLE 30 MG TAB.RAP.DR PO SCH (05:33)
[2017-03-26] MEDS: ACETAZOLAMIDE 250 MG TABLET PO SCH ×3 (05:33→21:11)
[2017-03-26 06:27] LABS: VENOUS BLOOD BASE EXCESS 8.7 mmol/L; VENOUS BLOOD HCO3 38.3 mmol/L (20-32); VENOUS BLOOD PH 7.28 (7.30-7.42)
[2017-03-26 06:49] LABS: VENOUS BLOOD PCO2 82.9 mmHg (35-63)
[2017-03-26] MEDS: CARVEDILOL 3.125 MG TABLET PO SCH (11:03)
[2017-03-26] MEDS: DILTIAZEM HCL 180 MG CAPSULE.CR PO SCH (11:04)
[2017-03-26] MEDS: ENOXAPARIN SODIUM INJ 40 MG/0.4 ML DISP.SYRIN SUBCUT SCH (11:05)
--- NOTE | 2017-03-26 11:53 | PDOC PROGRESS REPORT ---
Subjective Progress Note for:: 03/26/17 Subjective:: Pt denies any pain or discomfort. Denies diarrhea, chills nor fever. No CP. Physical Exam Vital Signs: Temp Pulse Resp BP Pulse Ox 97.3 F 95 16 118/55 L 94 03/26/17 07:53 03/26/17 07:53 03/26/17 07:53 03/26/17 07:53 03/26/17 07:53 Intake & Output 03/25/17 03/26/17 03/27/17 06:59 06:59 06:59 Intake Total 908 Balance 908 Weight 56.9 kg General appearance: PRESENT: no acute distress, cooperative, other - slightly lethargic Head exam: PRESENT: normocephalic Eye exam: PRESENT: EOMI Mouth exam: PRESENT: moist, neck supple Neck exam: ABSENT: JVD Respiratory exam: PRESENT: decreased breath sounds. ABSENT: rhonchi, wheezes Cardiovascular exam: PRESENT: RRR. ABSENT: gallop GI/Abdominal exam: PRESENT: soft. ABSENT: distended, tenderness Extremities exam: PRESENT: other - trace LE edema Neurological exam: PRESENT: other - somnolent Skin exam: PRESENT: dry, warm. ABSENT: cyanosis Results Laboratory Results: 03/26/17 02:10 03/26/17 02:20 03/25/17 03/25/17 03/26/17 20:23 21:55 02:10 WBC 10.7 H RBC 4.05 Hgb 11.4 L Hct 36.6 MCV 91 MCH 28.3 MCHC 31.2 L RDW 15.2 H Plt Count 274 VBG pH 7.32 VBG pCO2 87.8 H* VBG HCO3 44.1 H VBG Base Excess 14.7 Sodium Potassium Chloride Carbon Dioxide Anion Gap BUN Creatinine Est GFR ( Amer) Est GFR (Non-Af Amer) Glucose Calcium Urine Color YELLOW Urine Appearance SLIGHTLY-CLOUDY Urine pH 6.0 Ur Specific [place] 1.010 Urine Protein NEGATIVE Urine Glucose (UA) 50 H Urine Ketones 80 H Urine Blood SMALL H Urine Nitrite NEGATIVE Ur Leukocyte Esterase TRACE H Urine WBC (Auto) 2 Urine RBC (Auto) 7 03/26/17 03/26/17 03/26/17 02:20 02:20 06:20 WBC RBC Hgb Hct MCV MCH MCHC RDW Plt Count VBG pH 7.30 7.28 L VBG pCO2 89.3 H* 82.9 H* VBG HCO3 43.1 H 38.3 H VBG Base Excess 13.1 8.7 Sodium 138.1 Potassium 3.9 Chloride 93 L Carbon Dioxide 38 H Anion Gap 7 BUN 15 Creatinine 0.96 Est GFR ( Amer) > 60 Est GFR (Non-Af Amer) 57 L Glucose 135 H Calcium 9.4 Urine Color Urine Appearance Urine pH Ur Specific [place] Urine Protein Urine Glucose (UA) Urine Ketones Urine Blood Urine Nitrite Ur Leukocyte Esterase Urine WBC (Auto) Urine RBC (Auto) Impressions: Chest X-Ray 03/25/17 14:20 IMPRESSION: HEART ENLARGED WITHOUT FAILURE. NO OTHER SIGNIFICANT RADIOGRAPHIC FINDING IN THE CHEST. Head CT 03/25/17 14:22 IMPRESSION: MILD CHRONIC CHANGES OF ATROPHY AND MICROVASCULAR ISCHEMIA. NO ACUTE PROCESS. Assessment & Plan - Time Time Spent with patient: 25-34 minutes - Plan Summary Plan Summary: Continue nebulizers. D/C IV solumedrol. Begin oral prednisone. Decrease frequency of narcotics. Increase volume deliver via BIPAP per RT. Cont. supportive care.
[2017-03-26] MEDS ORDERED: DOCUSATE SODIUM 100 MG CAPSULE PO ONE (12:15)
[2017-03-26] MEDS ORDERED: PREDNISONE 20 MG TABLET PO ONE (12:45)
[2017-03-26] MEDS: NORMAL SALINE 1000 ML 1,000 ML IV PRN (17:45)
[2017-03-26] MEDS: DOCUSATE SODIUM 100 MG CAPSULE PO SCH (21:11)
[2017-03-27] MEDS: OXYCODONE HCL IR 5 MG TABLET PO PRN ×2 (00:59→08:44)
[2017-03-27] MEDS: IPRATROPIUM/ALBUTEROL 0.5-2.5 MG/3 ML AMPUL NEB SCH ×4 (02:29→20:24)
[2017-03-27] MEDS: ACETAZOLAMIDE 250 MG TABLET PO SCH ×3 (05:12→21:03)
[2017-03-27] MEDS: LANSOPRAZOLE 30 MG TAB.RAP.DR PO SCH (05:12)
[2017-03-27 06:05] LABS: ANION GAP 6 (5-19); BLOOD UREA NITROGEN 19 mg/dL (7-20); CALCIUM 9.4 mg/dL (8.4-10.2); CARBON DIOXIDE 33 mmol/L (22-30); CHLORIDE 101 mmol/L (98-107); CREATININE RESULT 0.88 mg/dL (0.52-1.25); GLUCOSE 241 mg/dL (75-110); POTASSIUM 3.3 mmol/L (3.6-5.0); SODIUM 140.3 mmol/L (137-145)
[2017-03-27] MEDS: ENOXAPARIN SODIUM INJ 40 MG/0.4 ML DISP.SYRIN SUBCUT SCH (08:31)
--- NOTE | 2017-03-27 11:29 | PDOC PROGRESS REPORT ---
Subjective Progress Note for:: 03/27/17 Subjective:: Patient is better today than yesterday . She is more awake alert and responsive . She is now able to focus and listen . Pt denies any pain or discomfort. Denies diarrhea, chills nor fever. No CP. Physical Exam Vital Signs: Temp Pulse Resp BP Pulse Ox 98.3 F 93 18 128/52 H 98 03/27/17 07:53 03/27/17 08:05 03/27/17 08:05 03/27/17 08:00 03/27/17 08:05 Intake & Output 03/26/17 03/27/17 03/28/17 06:59 06:59 06:59 Intake Total 908 1920 Balance 908 1920 Weight 56.9 kg 57.7 kg General appearance: PRESENT: no acute distress, cooperative, other - Nasal cannula oxygen Head exam: PRESENT: normocephalic Eye exam: PRESENT: EOMI Mouth exam: PRESENT: moist, neck supple Neck exam: ABSENT: JVD Respiratory exam: PRESENT: rhonchi - Bilateral, few, unlabored. ABSENT: wheezes Cardiovascular exam: PRESENT: RRR. ABSENT: gallop GI/Abdominal exam: PRESENT: hypoactive bowel sounds, soft. ABSENT: distended, tenderness Extremities exam: PRESENT: other - Trace lower extremity edema Neurological exam: PRESENT: alert, awake, oriented to situation Skin exam: PRESENT: dry, warm. ABSENT: cyanosis Results Laboratory Results: 03/26/17 02:10 03/27/17 05:10 03/27/17 05:10 Sodium 140.3 Potassium 3.3 L Chloride 101 Carbon Dioxide 33 H Anion Gap 6 BUN 19 Creatinine 0.88 Est GFR ( Amer) > 60 Est GFR (Non-Af Amer) > 60 Glucose 241 H Calcium 9.4 Impressions: Chest X-Ray 03/25/17 14:20 IMPRESSION: HEART ENLARGED WITHOUT FAILURE. NO OTHER SIGNIFICANT RADIOGRAPHIC FINDING IN THE CHEST. Head CT 03/25/17 14:22 IMPRESSION: MILD CHRONIC CHANGES OF ATROPHY AND MICROVASCULAR ISCHEMIA. NO ACUTE PROCESS. Assessment & Plan - Diagnosis (1) Acute and chronic respiratory failure ([id number]) Qualifiers: Respiratory failure complication: hypoxia and hypercapnia Qualified Code(s): J96.21 - Acute and chronic respiratory failure with hypoxia Is this a current diagnosis for this admission?: Yes (3) Leukocytosis, unspecified Qualifiers: Leukocytosis type: unspecified Qualified Code(s): D72.829 - Elevated white blood cell count, unspecified Is this a current diagnosis for this admission?: Yes (4) Chronic systolic (congestive) heart failure Is this a current diagnosis for this admission?: Yes (5) Coronary artery disease Qualifiers: Coronary Disease-Associated Artery/Lesion type: [place] artery [place] vs. transplanted heart: [place] heart Associated angina: without angina Qualified Code(s): I25.10 - Atherosclerotic heart disease of [place] coronary artery without angina pectoris Is this a current diagnosis for this admission?: Yes (6) Depression Qualifiers: Depression Type: unspecified Qualified Code(s): F32.9 - Major depressive disorder, single episode, unspecified Is this a current diagnosis for this admission?: Yes (7) GERD (gastroesophageal reflux disease) Qualifiers: Esophagitis presence: without esophagitis Qualified Code(s): K21.9 - Gastro-esophageal reflux disease without esophagitis Is this a current diagnosis for this admission?: Yes (8) Hypertension Qualifiers: Hypertension type: essential hypertension Qualified Code(s): I10 - Essential (primary) hypertension Is this a current diagnosis for this admission?: Yes (9) Anemia Qualifiers: Anemia type: unspecified type Qualified Code(s): D64.9 - Anemia, unspecified Is this a current diagnosis for this admission?: Yes - Time Time Spent with patient: 25-34 minutes - Plan Summary Plan Summary: Transition to oral steroids. Begin physical therapy. Resume home medication diltiazem and Coreg an aspirin. Replace potassium and monitor level. Continue bronchodilators. Continue supportive care . Anticipate discharge in 48 hours.
[2017-03-27] MEDS: PREDNISONE 20 MG TABLET PO SCH (11:42)
[2017-03-27] MEDS: CARVEDILOL 3.125 MG TABLET PO SCH (11:43)
[2017-03-27] MEDS: DOCUSATE SODIUM 100 MG CAPSULE PO SCH ×2 (11:44→21:03)
[2017-03-27] MEDS: DILTIAZEM HCL 180 MG CAPSULE.CR PO SCH (11:44)
[2017-03-27] MEDS: POTASSIUM CHLORIDE 10 MEQ TABLET.SA PO SCH ×2 (11:44→16:30)
[2017-03-27] MEDS: NORMAL SALINE 1000 ML 1,000 ML IV PRN (16:32)
[2017-03-28] MEDS: IPRATROPIUM/ALBUTEROL 0.5-2.5 MG/3 ML AMPUL NEB SCH ×4 (01:49→20:49)
[2017-03-28] MEDS: LANSOPRAZOLE 30 MG TAB.RAP.DR PO SCH (05:03)
[2017-03-28] MEDS: ACETAZOLAMIDE 250 MG TABLET PO SCH ×3 (05:03→21:15)
[2017-03-28] MEDS: OXYCODONE HCL IR 5 MG TABLET PO PRN (05:59)
[2017-03-28] MEDS: ENOXAPARIN SODIUM INJ 40 MG/0.4 ML DISP.SYRIN SUBCUT SCH (08:52)
[2017-03-28] MEDS ORDERED: (PENDING PHARMACY ID) (Diltiazem Hcl [Diltiazem 24hr Cd] 180 MG) PO SCH (10:00)
[2017-03-28] MEDS: DOCUSATE SODIUM 100 MG CAPSULE PO SCH ×2 (10:14→21:15)
[2017-03-28] MEDS: PREDNISONE 20 MG TABLET PO SCH (10:14)
[2017-03-28] MEDS: ASPIRIN 81 MG TABLET, CHEWABLE PO SCH (10:14)
[2017-03-28] MEDS: DILTIAZEM HCL 180 MG CAPSULE.CR PO SCH (10:14)
[2017-03-28] MEDS: CARVEDILOL 3.125 MG TABLET PO SCH (10:15)
--- NOTE | 2017-03-28 14:36 | PDOC PROGRESS REPORT ---
Subjective Progress Note for:: 03/28/17 Subjective:: Denies any chest pain. Does report that she is mildly short of breath Physical Exam Vital Signs: Temp Pulse Resp BP Pulse Ox 97.7 F 82 18 124/52 L 97 03/28/17 12:28 03/28/17 14:00 03/28/17 14:00 03/28/17 12:28 03/28/17 14:00 Intake & Output 03/27/17 03/28/17 03/29/17 06:59 06:59 06:59 Intake Total 1920 1693 458 Output Total 1400 50 Balance 1920 293 408 Weight 57.7 kg 57.4 kg General appearance: PRESENT: no acute distress Eye exam: PRESENT: conjunctiva pink. ABSENT: scleral icterus Mouth exam: PRESENT: moist, tongue midline Neck exam: ABSENT: JVD Respiratory exam: PRESENT: clear to auscultation jaime. ABSENT: rales, rhonchi, wheezes Cardiovascular exam: PRESENT: RRR. ABSENT: diastolic murmur, rubs, systolic murmur GI/Abdominal exam: PRESENT: normal bowel sounds, soft. ABSENT: distended, guarding, mass, organolmegaly, rebound, tenderness Extremities exam: ABSENT: calf tenderness, clubbing, pedal edema Neurological exam: PRESENT: alert, awake, oriented to person, oriented to place Psychiatric exam: PRESENT: flat affect Skin exam: PRESENT: dry, intact, warm. ABSENT: cyanosis, rash Results Laboratory Results: 03/26/17 02:10 03/27/17 05:10 Impressions: Chest X-Ray 03/25/17 14:20 IMPRESSION: HEART ENLARGED WITHOUT FAILURE. NO OTHER SIGNIFICANT RADIOGRAPHIC FINDING IN THE CHEST. Head CT 03/25/17 14:22 IMPRESSION: MILD CHRONIC CHANGES OF ATROPHY AND MICROVASCULAR ISCHEMIA. NO ACUTE PROCESS. Assessment & Plan - Diagnosis (1) Acute and chronic respiratory failure ([id number]) Qualifiers: Respiratory failure complication: hypoxia and hypercapnia Qualified Code(s): J96.21 - Acute and chronic respiratory failure with hypoxia Is this a current diagnosis for this admission?: YesPlan: Secondary to a combination of acute COPD exacerbation and congestive heart failure exacerbation. The patient appears to be euvolemic currently. Patient has been transitioned to p.o. steroids yesterday. If she continues to improve we can hopefully discharge home tomorrow. (2) Leukocytosis, unspecified Qualifiers: Leukocytosis type: unspecified Qualified Code(s): D72.829 - Elevated white blood cell count, unspecified Is this a current diagnosis for this admission?: YesPlan: Patient's leukocytosis is improving. She has no obvious infection. (3) Anemia Qualifiers: Anemia type: unspecified type Qualified Code(s): D64.9 - Anemia, unspecified Is this a current diagnosis for this admission?: YesPlan: Stable (4) Chronic systolic (congestive) heart failure Is this a current diagnosis for this admission?: YesPlan: Patient is euvolemic on exam (5) Coronary artery disease Qualifiers: Coronary Disease-Associated Artery/Lesion type: [place] artery [place] vs. transplanted heart: [place] heart Associated angina: without angina Qualified Code(s): I25.10 - Atherosclerotic heart disease of [place] coronary artery without angina pectoris Is this a current diagnosis for this admission?: YesPlan: Denies any chest pain (6) Depression Qualifiers: Depression Type: unspecified Qualified Code(s): F32.9 - Major depressive disorder, single episode, unspecified Is this a current diagnosis for this admission?: Yes (7) GERD (gastroesophageal reflux disease) Qualifiers: Esophagitis presence: without esophagitis Qualified Code(s): K21.9 - Gastro-esophageal reflux disease without esophagitis Is this a current diagnosis for this admission?: YesPlan: Patient is asymptomatic (8) Hypertension Qualifiers: Hypertension type: essential hypertension Qualified Code(s): I10 - Essential (primary) hypertension Is this a current diagnosis for this admission?: Yes - Time Time Spent with patient: 25-34 minutes - Inpatient Certification Medical Necessity: Need Close Monitoring Due to Risk of Patient Decompensation - Plan Summary Plan Summary: If her respiratory status continues to improve we can discharge home tomorrow.
[2017-03-29] MEDS: IPRATROPIUM/ALBUTEROL 0.5-2.5 MG/3 ML AMPUL NEB SCH ×4 (01:57→20:52)
[2017-03-29] MEDS: ACETAZOLAMIDE 250 MG TABLET PO SCH ×3 (05:14→21:05)
[2017-03-29] MEDS: LANSOPRAZOLE 30 MG TAB.RAP.DR PO SCH (05:14)
[2017-03-29 06:13] LABS: HEMATOCRIT 35.4 % (36.0-47.0); HGB HCT DIFFERENCE -2.4; MEAN CORPUSCULAR HEMOGLOBIN 28.3 pg (27.0-33.4); MEAN CORPUSCULAR VOLUME 91 fl (80-97); RED BLOOD COUNT 3.88 10^6/uL (3.72-5.28); RED CELL DISTRIBUTION WIDTH 15.2 % (11.5-14.0); WHITE BLOOD COUNT 11.4 10^3/uL (4.0-10.5)
[2017-03-29 06:27] LABS: ANION GAP 5 (5-19); BLOOD UREA NITROGEN 24 mg/dL (7-20); CALCIUM 10.3 mg/dL (8.4-10.2); CARBON DIOXIDE 33 mmol/L (22-30); CHLORIDE 103 mmol/L (98-107); CREATININE RESULT 0.71 mg/dL (0.52-1.25); GLUCOSE 119 mg/dL (75-110); POTASSIUM 4.3 mmol/L (3.6-5.0); SODIUM 140.6 mmol/L (137-145)
[2017-03-29 06:45] LABS: BASOPHILS % (MANUAL) 0 % (0-2); EOSINOPHILS % (MANUAL) 0 % (0-6); LYMPHOCYTES % (MANUAL) 4 % (13-45); TOTAL CELLS COUNTED 100
[2017-03-29 06:49] LABS: TOXIC GRANULATION SLIGHT
[2017-03-29 06:50] LABS: ANISOCYTOSIS SLIGHT; OVALOCYTES SLIGHT
[2017-03-29] MEDS: ENOXAPARIN SODIUM INJ 40 MG/0.4 ML DISP.SYRIN SUBCUT SCH (09:11)
[2017-03-29] MEDS: PREDNISONE 20 MG TABLET PO SCH (09:11)
[2017-03-29] MEDS: ASPIRIN 81 MG TABLET, CHEWABLE PO SCH (09:11)
[2017-03-29] MEDS: DILTIAZEM HCL 180 MG CAPSULE.CR PO SCH (09:12)
[2017-03-29] MEDS: DOCUSATE SODIUM 100 MG CAPSULE PO SCH ×2 (09:12→21:05)
[2017-03-29] MEDS: CARVEDILOL 3.125 MG TABLET PO SCH (09:12)
--- NOTE | 2017-03-29 11:20 | PDOC DISCHARGE SUMMARY ---
General - Admit/Disc Date/PCP Admission Date/Primary Care Provider: 03/25/17 17:36 KAILEE WOLF, Discharge Date: 03/29/17 - Discharge Diagnosis (1) Acute and chronic respiratory failure ([id number]) Is this a current diagnosis for this admission?: YesSummary: Secondary to acute COPD exacerbation (2) Leukocytosis, unspecified Is this a current diagnosis for this admission?: Yes (3) Anemia Is this a current diagnosis for this admission?: Yes (4) Chronic systolic (congestive) heart failure Is this a current diagnosis for this admission?: Yes (5) Coronary artery disease Is this a current diagnosis for this admission?: Yes (6) Depression Is this a current diagnosis for this admission?: Yes (7) GERD (gastroesophageal reflux disease) Is this a current diagnosis for this admission?: Yes (8) Hypertension Is this a current diagnosis for this admission?: Yes - Additional Information Resuscitation Status: Full Code Discharge Diet: Cardiac Discharge Activity: Activity As Tolerated Home Medications: Albuterol Sulfate [Proair HFA] 2 puff IH Q4HP PRN 03/27/17 Aspirin [Aspirin 81 mg Chewable Tablet] 81 mg PO DAILY 03/27/17 Benzonatate [Tessalon [place] 100 mg Capsule] 100 mg PO Q8HP PRN 03/27/17 Carvedilol [Coreg 3.125 mg Tablet] 3.125 mg PO DAILY 03/27/17 Diltiazem HCl [Diltiazem 24Hr Cd] 180 mg PO DAILY 03/27/17 Esomeprazole Magnesium [Nexium] 40 mg PO BIDACBS 03/27/17 Fluticasone Propionate [Flonase Nasal [place] 50 Mcg/[place] 16 gm] 2 sprays NASL DAILY 03/27/17 Ipratropium/Albuterol Sulfate [Duoneb 3 ml Ampul] 3 ml NEB RTQIDP PRN 03/27/17 Montelukast Sodium [Singulair 10 mg Tablet] 10 mg PO QHS 03/27/17 Multivitamin [Tab-A-Christine (Multiple Vitamin) Tablet] 1 tab PO DAILY 03/27/17 Nitroglycerin [Nitro-Dur 10 mg (0.4MG/Hr) Transdermal Patch] 1 patch TD DAILY Olanzapine [Zyprexa 2.5 mg Tablet] 2.5 mg PO DAILY 03/27/17 Oxycodone HCl [Oxycodone HCl 10 MG Tablet] 10 mg PO Q6HP PRN 03/27/17 Potassium Chloride 20 meq PO BID 03/27/17 Pramipexole Di-HCl [Mirapex 0.25 mg Tablet] 0.25 mg PO QHS 03/27/17 Roflumilast [Daliresp 500 mcg Tablet] 500 mcg PO DAILY 03/27/17 Solifenacin Succinate [Vesicare] 5 mg PO DAILY 03/27/17 Prednisone [Deltasone 20 mg Tablet] 10 mg PO DAILY #39 tablet 03/29/17 History of Present Illness History of Present Illness: SMITH IRAHETA is a 71 year old female history of congestive heart failure as well as COPD and oxygen dependent who presented with altered mental status. The patient complains of shortness of breath prior to presentation and the family reportedly called the primary care doctor and was told to increase the oxygen from 1.5-3 L. Patient became more difficult to arouse and she was brought into the emergency room and was found to have an elevated CO2 level at 103. She was admitted for further treatment Hospital Course Hospital Course: SMITH IRAHETA is a 71 year old female history of congestive heart failure as well as COPD and oxygen dependent who presented with altered mental status. The patient complains of shortness of breath prior to presentation and the family reportedly called the primary care doctor and was told to increase the oxygen from 1.5-3 L. Patient became more difficult to arouse and she was brought into the emergency room and was found to have an elevated CO2 level at 103. Patient was treated in acute COPD exacerbation with BiPAP and steroids and had improvement in her mental status. The patient's mental status improved and she was oxygenating adequately on 1.5 L with no evidence for CO2 retention. The patient also did have a component of congestive heart failure that was treated. Discussed the case with the son-in-law and instructed them that they should follow her pulse ox level before increasing her oxygen with a goal oxygen saturation of 90%. The family is aware of CO2 retention and the problems associated with that. Physical Exam Vital Signs: Temp Pulse Resp BP Pulse Ox 97.5 F 79 16 140/51 H 97 03/29/17 07:22 03/29/17 08:10 03/29/17 08:10 03/29/17 07:22 03/29/17 08:10 Intake & Output 03/28/17 03/29/17 03/30/17 06:59 06:59 06:59 Intake Total 1693 901 Output Total 1400 50 Balance 293 851 Weight 57.4 kg 58.6 kg General appearance: PRESENT: no acute distress Eye exam: PRESENT: conjunctiva pink. ABSENT: scleral icterus Mouth exam: PRESENT: moist, tongue midline Neck exam: ABSENT: JVD Respiratory exam: PRESENT: clear to auscultation jaime. ABSENT: rales, rhonchi, wheezes Cardiovascular exam: PRESENT: RRR. ABSENT: diastolic murmur, rubs, systolic murmur GI/Abdominal exam: PRESENT: normal bowel sounds, soft. ABSENT: distended, guarding, mass, organolmegaly, rebound, tenderness Extremities exam: ABSENT: calf tenderness, clubbing, pedal edema Neurological exam: PRESENT: alert, awake, oriented to person, oriented to place , oriented to time, oriented to situation, CN II-XII grossly intact. ABSENT: motor sensory deficit Psychiatric exam: PRESENT: appropriate affect Skin exam: PRESENT: dry, intact, warm. ABSENT: cyanosis, rash Results Laboratory Results: 03/29/17 05:13 03/29/17 05:13 03/29/17 03/29/17 05:13 05:13 WBC 11.4 H RBC 3.88 Hgb 11.0 L Hct 35.4 L MCV 91 MCH 28.3 MCHC 31.0 L RDW 15.2 H Plt Count 312 Seg Neutrophils % Not Reportable Lymphocytes % Not Reportable Monocytes % Not Reportable Eosinophils % Not Reportable Basophils % Not Reportable Absolute Neutrophils Not Reportable Absolute Lymphocytes Not Reportable Absolute Monocytes Not Reportable Absolute Eosinophils Not Reportable Absolute Basophils Not Reportable Sodium 140.6 Potassium 4.3 Chloride 103 Carbon Dioxide 33 H Anion Gap 5 BUN 24 H Creatinine 0.71 Est GFR ( Amer) > 60 Est GFR (Non-Af Amer) > 60 Glucose 119 H Calcium 10.3 H Impressions: Chest X-Ray 03/25/17 14:20 IMPRESSION: HEART ENLARGED WITHOUT FAILURE. NO OTHER SIGNIFICANT RADIOGRAPHIC FINDING IN THE CHEST. Head CT 03/25/17 14:22 IMPRESSION: MILD CHRONIC CHANGES OF ATROPHY AND MICROVASCULAR ISCHEMIA. NO ACUTE PROCESS. Qualifiers PATEINT BEING DISCHARGED WITH ANY OF THE FOLLOWING DIAGNOSIS?: No Plan Discharge Plan: Is discharged to home. Will follow up with primary care in 1-2 weeks Time Spent: Greater than 30 Minutes
[2017-03-29 21:11] VITALS: BP 128/52
== END 2017-03-30 00:25 | disposition home or self-care (01) | DRG 189 ==
LOC: ER 13:10 → EH 17:36 → 3S 18:30
DX: J96.22 Acute and chronic respiratory failure with hypercapnia (principal); J44.1 Chronic obstructive pulmonary disease with (acute) exacerbation; E87.2 Acidosis; I50.22 Chronic systolic (congestive) heart failure; J96.21 Acute and chronic respiratory failure with hypoxia; I25.10 Atherosclerotic heart disease of native coronary artery without angina pectoris; I11.0 Hypertensive heart disease with heart failure; K21.9 Gastro-esophageal reflux disease without esophagitis; K44.9 Diaphragmatic hernia without obstruction or gangrene; D64.9 Anemia, unspecified; D72.829 Elevated white blood cell count, unspecified; M19.90 Unspecified osteoarthritis, unspecified site; Z99.81 Dependence on supplemental oxygen; Z87.891 Personal history of nicotine dependence; Z79.82 Long term (current) use of aspirin; Z79.51 Long term (current) use of inhaled steroids; Z79.52 Long term (current) use of systemic steroids; Z79.899 Other long term (current) drug therapy
CPT/HCPCS: 36415; 36600; 70450; 71010; 80048; 80053; 81001; 82550; 82553; 82803; 83880; 84484; 85025; 85027; 85610; 93005; 93010; 94640; 94660; 99291; J1650; J2930; J3490; J7030; J7512; J7620

== ENCOUNTER → 2017-05-17 | Outpatient (CLI) | payer MEDICARE, OTHER ==
--- NOTE | 2017-05-17 16:18 | RADIOLOGY REPORT (SQ) ---
EXAM DESCRIPTION: CHEST PA/LATERAL COMPLETED DATE/TIME: 05/17/2017 3:54 pm REASON FOR STUDY: ACUTE BRONCHITIS, UNSPECIFIED,COPD COMPARISON: 03/25/2017 EXAM PARAMETERS: NUMBER OF VIEWS: two views TECHNIQUE: Digital Frontal and Lateral radiographic views of the chest acquired. RADIATION DOSE: NA LIMITATIONS: none FINDINGS: LUNGS AND PLEURA: Interstitial markings are prominent. No focal consolidation. There is hyperexpansion. MEDIASTINUM AND HILAR STRUCTURES: No masses or contour abnormalities. HEART AND VASCULAR STRUCTURES: Heart size is stable. No failure. BONES: No acute findings. HARDWARE: None in the chest. OTHER: No other significant finding. IMPRESSION: Cardiomegaly with prominent basilar interstitial markings. No focal consolidation. Thi s possibly represents early interstitial edema in the setting of COPD. TECHNICAL DOCUMENTATION: JOB ID: [id number] [employer]- All Rights Reserved
[2017-05-17 17:14] LABS: ABSOLUTE EOSINOPHILS # (AUTO) 0.2 10^3/uL (0.0-0.6); ABSOLUTE LYMPHOCYTES (AUTO) 2.5 10^3/uL (0.5-4.7); ABSOLUTE MONOCYTES (AUTO) 1.3 10^3/uL (0.1-1.4); BASOPHILS % (AUTO) 0.3 % (0-2); EOSINOPHILS % (AUTO) 1.3 % (0-6); HEMATOCRIT 39.4 % (36.0-47.0); HEMOGLOBIN 12.1 g/dL (12.0-15.5); HGB HCT DIFFERENCE -3.1; LYMPHOCYTES % (AUTO) 16.9 % (13-45); MEAN CORPUSCULAR HEMOGLOBIN 28.1 pg (27.0-33.4); MEAN CORPUSCULAR HGB CONC 30.7 g/dL (32.0-36.0); MEAN CORPUSCULAR VOLUME 92 fl (80-97); MONOCYTES % (AUTO) 8.4 % (3-13); RED CELL DISTRIBUTION WIDTH 15.6 % (11.5-14.0); SEGMENTED NEUTROPHILS % (AUTO) 73.1 % (42-78)
[2017-05-17 17:39] LABS: ALANINE AMINOTRANSFERASE 15 U/L (9-52); ALBUMIN 3.4 g/dL (3.5-5.0); ALKALINE PHOSPHATASE 74 U/L (38-126); ANION GAP 8 (5-19); ASPARTATE AMINO TRANSFERASE 11 U/L (14-36); BILIRUBIN,DIRECT 0.4 mg/dL (0.0-0.4); BILIRUBIN,TOTAL 0.5 mg/dL (0.2-1.3); BLOOD UREA NITROGEN 11 mg/dL (7-20); CALCIUM 9.4 mg/dL (8.4-10.2); CARBON DIOXIDE 39 mmol/L (22-30); CHLORIDE 94 mmol/L (98-107); CHOLESTEROL 187.89 mg/dL (0-200); CREATININE RESULT 0.64 mg/dL (0.52-1.25); Direct HDL 87 mg/dL (>40); GLUCOSE 111 mg/dL (75-110); POTASSIUM 4.3 mmol/L (3.6-5.0); SODIUM 140.9 mmol/L (137-145); TOTAL PROTEIN 6.8 g/dL (6.3-8.2); TRIGLYCERIDES 116 mg/dL (<150)
[2017-05-17 17:50] LABS: DIRECT LDL 88 mg/dL (<100)
[2017-05-19 10:38] LABS: CREATININE URINE 37.1 mg/dL (Not Estab.); MICROALBUMIN URINE 273.8 ug/mL (Not Estab.)
== END ==
LOC: OD 15:37
PROVIDERS: ATTEND Family Medicine Geriatric Medicine
DX: J44.0 Chronic obstructive pulmonary disease with (acute) lower respiratory infection (principal); J20.9 Acute bronchitis, unspecified; E11.9 Type 2 diabetes mellitus without complications; I10 Essential (primary) hypertension; E53.8 Deficiency of other specified B group vitamins; Z79.899 Other long term (current) drug therapy; I51.7 Cardiomegaly
CPT/HCPCS: 36415; 71020; 80053; 80061; 82043; 82570; 82607; 83036; 84443; 85025

== ENCOUNTER 2017-06-09 05:43 | Inpatient (IN) | payer MEDICARE, OTHER ==
[2017-06-09] MEDS ORDERED: MAGNESIUM SULFATE/D5W 100 ML IV ONE (06:23)
[2017-06-09] MEDS ORDERED: PREDNISONE 20 MG TABLET PO ONE (06:23)
[2017-06-09] MEDS ORDERED: IPRATROPIUM/ALBUTEROL 0.5-2.5 MG/3 ML AMPUL NEB ONE (06:23)
[2017-06-09] MEDS ORDERED: ALBUTEROL SULFATE 0.083% NEB 2.5 MG/3 ML AMPUL NEB ONE (06:23)
[2017-06-09 06:25] LABS: ABSOLUTE EOSINOPHILS # (AUTO) 0.2 10^3/uL (0.0-0.6); ABSOLUTE LYMPHOCYTES (AUTO) 1.8 10^3/uL (0.5-4.7); ABSOLUTE MONOCYTES (AUTO) 0.8 10^3/uL (0.1-1.4); ABSOLUTE NEUT (AUTO) 6.7 10^3/uL (1.7-8.2); BASOPHILS % (AUTO) 0.4 % (0-2); EOSINOPHILS % (AUTO) 2.1 % (0-6); HEMOGLOBIN 10.5 g/dL (12.0-15.5); HGB HCT DIFFERENCE -1.5; LYMPHOCYTES % (AUTO) 18.5 % (13-45); MEAN CORPUSCULAR HEMOGLOBIN 28.6 pg (27.0-33.4); MEAN CORPUSCULAR HGB CONC 31.7 g/dL (32.0-36.0); MEAN CORPUSCULAR VOLUME 90 fl (80-97); MONOCYTES % (AUTO) 8.9 % (3-13); RED BLOOD COUNT 3.66 10^6/uL (3.72-5.28); RED CELL DISTRIBUTION WIDTH 16.3 % (11.5-14.0); SEGMENTED NEUTROPHILS % (AUTO) 70.1 % (42-78); WHITE BLOOD COUNT 9.5 10^3/uL (4.0-10.5)
[2017-06-09 06:28] LABS: ALANINE AMINOTRANSFERASE 21 U/L (9-52); ALKALINE PHOSPHATASE 72 U/L (38-126); ASPARTATE AMINO TRANSFERASE 15 U/L (14-36); BILIRUBIN,DIRECT 0.3 mg/dL (0.0-0.4); BILIRUBIN,TOTAL 0.4 mg/dL (0.2-1.3); BLOOD UREA NITROGEN 16 mg/dL (7-20); CALCIUM 8.7 mg/dL (8.4-10.2); CHLORIDE 93 mmol/L (98-107); CREATININE RESULT 0.53 mg/dL (0.52-1.25); GLUCOSE 118 mg/dL (75-110); MAGNESIUM 1.7 mg/dL (1.6-2.3); POTASSIUM 4.2 mmol/L (3.6-5.0); SODIUM 139.5 mmol/L (137-145)
[2017-06-09 06:29] LABS: CREATINE KINASE < 20 U/L (30-135)
--- NOTE | 2017-06-09 06:37 | RADIOLOGY REPORT (SQ) ---
EXAM DESCRIPTION: CHEST SINGLE VIEW COMPLETED DATE/TIME: 06/09/2017 6:21 am REASON FOR STUDY: copd COMPARISON: 05/17/2017. 12/01/2016. 05/17/2017. CT, 12/02/2016. EXAM PARAMETERS: NUMBER OF VIEWS: One view. TECHNIQUE: Single frontal radiographic view of the chest acquired. RADIATION DOSE: NA LIMITATIONS: None. FINDINGS: LUNGS AND PLEURA: Mild interstitial markings, chronic. Small left basilar scar -fibrosis. MEDIASTINUM AND HILAR STRUCTURES: No masses. Contour normal. HEART AND VASCULAR STRUCTURES: Heart normal in size. Normal vasculature. BONES: No acute findings. HARDWARE: Right upper abdominal clips. OTHER: No other significant finding. IMPRESSION: No acute cardiopulmonary findings. Mild chronic interstitial lung disease. TECHNICAL DOCUMENTATION: JOB ID: [id number]
[2017-06-09 06:40] LABS: CREATINE KINASE MB 0.75 ng/mL (<4.55); TROPONIN I 0.013 ng/mL
[2017-06-09] MEDS ORDERED: DILTIAZEM HCL 180 MG CAPSULE.CR PO ONE (07:00)
[2017-06-09] MEDS ORDERED: NORMAL SALINE 500 ML IV ONE (07:03)
[2017-06-09 07:24] LABS: VENOUS BLOOD BASE EXCESS 13.6 mmol/L; VENOUS BLOOD HCO3 45.7 mmol/L (20-32); VENOUS BLOOD PH 7.21 (7.30-7.42)
[2017-06-09 07:25] LABS: VENOUS BLOOD PCO2 117.4 mmHg (35-63)
[2017-06-09 07:25] LABS: ANION GAP 8 (5-19)
[2017-06-09 07:32] LABS: CARBON DIOXIDE 39 mmol/L (22-30)
[2017-06-09] MEDS ORDERED: DILTIAZEM HCL INJ 25 MG/5 ML VIAL IV ONE (07:53)
[2017-06-09] MEDS ORDERED: DILTIAZEM HCL/D5W 125 ML IV PRN ×2 (07:53→09:54)
[2017-06-09 07:55] LABS: LIPASE 24.4 U/L (23-300)
--- NOTE | 2017-06-09 08:14 | EKG REPORT ---
SEVERITY:- ABNORMAL ECG - ATRIAL FIBRILLATION, V-RATE 90-174 BORDERLINE PROLONGED QT INTERVAL : Confirmed by: Fernando Herman MD 09-Jun-2017 08:14:00
--- NOTE | 2017-06-09 08:18 | EKG REPORT ---
SEVERITY:- ABNORMAL ECG - SINUS TACHYCARDIA ATRIAL PREMATURE COMPLEX PROBABLE LVH WITH SECONDARY REPOL ABNRM : Confirmed by: Fernando Herman MD 09-Jun-2017 08:17:47
--- NOTE | 2017-06-09 08:30 | ER Document Report ---
ED General - General Chief Complaint: Shortness Of Breath Stated Complaint: SHORTNESS OF BREATH Time Seen by Provider: 06/09/17 06:10 TRAVEL OUTSIDE OF THE [place] IN LAST 30 DAYS: No - HPI Patient complains to provider of: Shortness of breath Notes: Patient has history of COPD acute on chronic hypercapnia patient presents today with shortness of breath. States ongoing for last few days worse overnight. Patient states compliance with all of her medications. Patient also states history of atrial fibrillation. Patient denies any recent travel denies any recent antibiotics patient is on chronic steroids at 10 mg daily. Patient is compliance with this. Upon my evaluation patient is on her home O2 dose alert and oriented 3. - Related Data Allergies/Adverse Reactions: No Known Allergies Allergy (Verified 06/09/17 06:27) Home Medications: Current Home Medications Albuterol Sulfate [Proair HFA] 2 puff IH Q4 PRN 06/09/17 [History] Aspirin [Aspirin EC] 81 mg PO DAILY 06/09/17 [History] Carvedilol [Coreg 3.125 mg Tablet] 3.125 mg PO DAILY 06/09/17 [History] Diltiazem HCl [Diltiazem ER] 180 mg PO Q6AM 06/09/17 [History] Fluticasone Propionate [Flonase Nasal [place] 50 Mcg/[place] 16 gm] 1 spray NAREB Q12 06/09/17 [History] Ipratropium/Albuterol Sulfate [Duoneb 3 ml Ampul] 3 ml NEB RTQ6HP PRN 06/09/17 [ History] Montelukast Sodium [Singulair 10 mg Tablet] 10 mg PO QHS 06/09/17 [History] Multivitamin [Tab-A-Christine (Multiple Vitamin) Tablet] 1 tab PO DAILY 06/09/17 [ History] Olanzapine [Zyprexa 2.5 Mg Tablet] 2.5 mg PO DAILY 06/09/17 [History] Omeprazole 40 mg PO DAILY 06/09/17 [History] Oxycodone HCl [Oxycodone HCl 10 MG Tablet] 10 mg PO Q6HP PRN 06/09/17 [History] Prednisone [Deltasone 10 mg Tablet] 10 mg PO DAILY 06/09/17 [History] Roflumilast [Daliresp 500 mcg Tablet] 500 mcg PO DAILY 06/09/17 [History] Tolterodine Tartrate [Detrol LA] 2 mg PO DAILY 06/09/17 [History] Past Medical History - Social History Smoking Status: Unknown if Ever Smoked Family History: Reviewed & Not Pertinent, COPD - Past Medical History Cardiac Medical History: Reports: Hx Congestive Heart Failure - Ejection fraction of less than 25%, May 2014., Hx Coronary Artery Disease, Hx Hypertension Denies: Hx DVT, Hx Heart Attack, Hx Hypercholesterolemia, Hx Pulmonary Embolism Pulmonary Medical History: Reports: Hx COPD - 2L nasal O2 at home, Hx Pneumonia Denies: Hx Asthma Neurological Medical History: Denies: Hx Cerebrovascular Accident, Hx Seizures Endocrine Medical History: Denies: Hx Diabetes Mellitus Type 1, Hx Diabetes Mellitus Type 2, Hx Hyperthyroidism, Hx Hypothyroidism Renal/ Medical History: Denies: Hx Peritoneal Dialysis GI Medical History: Reports: Hx Gastroesophageal Reflux Disease - Mild, Hx Hiatal Hernia. Denies: Hx Cirrhosis, Hx Hepatitis, Hx Ulcer Musculoskeltal Medical History: Reports Hx Arthritis Psychiatric Medical History: Reports: Hx Depression Infectious Medical History: Denies: Hx Hepatitis Past Surgical History: Reports: Hx Cholecystectomy, Hx Orthopedic Surgery - "back surgery", Other - Last colonoscopy many years ago. Denies: Hx Hysterectomy, Hx Mastectomy, Hx Open Heart Surgery, Hx Pacemaker - Immunizations Hx Diphtheria, Pertussis, Tetanus Vaccination: Yes Hx Pneumococcal Vaccination: 08/06/13 Review of Systems - Review of Systems Constitutional: No symptoms reported EENT: No symptoms reported Cardiovascular: No symptoms reported Respiratory: Short of breath Gastrointestinal: No symptoms reported Genitourinary: No symptoms reported Female Genitourinary: No symptoms reported Musculoskeletal: No symptoms reported Skin: No symptoms reported Hematologic/Lymphatic: No symptoms reported Neurological/Psychological: No symptoms reported -: Yes All other systems reviewed and negative Physical Exam - Vital signs Vitals: Resp Pulse Ox 32 H 100 06/09/17 06:04 06/09/17 06:04 Interpretation: Normal - General General appearance: Appears well, Alert - HEENT Head: Normocephalic, Atraumatic Eyes: Normal Pupils: PERRL - Respiratory Respiratory status: Tachypnea Chest status: Nontender Breath sounds: Wheezing Chest palpation: Normal - Cardiovascular Rhythm: Regular Heart sounds: Normal auscultation Murmur: No - Abdominal Inspection: Normal Distension: No distension Bowel sounds: Normal Tenderness: Nontender Organomegaly: No organomegaly - Back Back: Normal, Nontender - Extremities General upper extremity: Normal inspection, Nontender, Normal color, Normal ROM , Normal temperature General lower extremity: Normal inspection, Nontender, Normal color, Normal ROM , Normal temperature, Normal weight bearing. No: Shaylee's sign - Neurological Neuro grossly intact: Yes Cognition: Normal Orientation: AAOx4 [place] Coma Scale Eye Opening: Spontaneous [place] Coma Scale Verbal: Oriented [place] Coma Scale Motor: Obeys Commands [place] Coma Scale Total: 15 Speech: Normal Motor strength normal: LUE, RUE, LLE, RLE Sensory: Normal - Psychological Associated symptoms: Normal affect, Normal mood - Skin Skin Temperature: Warm Skin Moisture: Dry Skin Color: Normal Course - Re-evaluation Re-evalutation: 06/09/17 15:01 Patient laboratory values that showed significant hypercapnia with acidosis. Patient was transitioned over to BiPAP. No signs of significant infection were seen. Patient case was discussed with hospitalist agrees with admission to the [facility]. - Vital Signs Vital signs: Temp Pulse Resp BP Pulse Ox 98.8 F 75 14 94/68 L 98 06/09/17 12:05 06/09/17 12:10 06/09/17 12:10 06/09/17 13:32 06/09/17 12:10 - Laboratory Result Diagrams: 06/09/17 06:03 06/09/17 06:03 Laboratory results interpreted by me: 06/09/17 06/09/17 06/09/17 06:03 06:03 07:10 RBC 3.66 L Hgb 10.5 L Hct 33.0 L MCHC 31.7 L RDW 16.3 H VBG pH 7.21 L VBG pCO2 117.4 H* VBG HCO3 45.7 H Chloride 93 L Carbon Dioxide 39 H Glucose 118 H Creatine Kinase < 20 L Total Protein 6.0 L Albumin 3.0 L Critical Care Note - Critical Care Note Total time excluding time spent on procedures (mins): 35 Comments: Multiple evaluations for hypercapnia respiratory distress. Discharge - Discharge Clinical Impression: Acute respiratory acidosis, Atrial fibrillation with rapid ventricular response Acute and chronic respiratory failure ([id number]) Qualifiers: Respiratory failure complication: hypercapnia Qualified Code(s): J96.22 - Acute and chronic respiratory failure with hypercapnia Condition: Fair Disposition: ADMITTED INPATIENT Admitting Provider: Hospitalist - [facility] Unit Admitted: [facility]
[2017-06-09] MEDS ORDERED: ACETAMINOPHEN 325 MG TABLET PO PRN (09:46)
[2017-06-09] MEDS ORDERED: ALBUTEROL SULFATE 0.083% NEB 2.5 MG/3 ML AMPUL NEB PRN (09:46)
[2017-06-09] MEDS ORDERED: ONDANSETRON 4 MG TAB.RAPDIS PO PRN (09:46)
[2017-06-09] MEDS ORDERED: ONDANSETRON HCL INJ/PF 4 MG/2 ML SDV IV PRN (09:46)
--- NOTE | 2017-06-09 10:45 | PDOC H&P ---
History of Present Illness Admission Date/PCP: 06/09/17 08:34 Patient complains of: Shortness of breath History of Present Illness: SMITH IRAHETA is a 71 year old female with history of COPD who presents with a 2 day history of worsening shortness of breath. Patient was found to have respiratory failure and an acute COPD exacerbation. Reports that she had a nonproductive cough. She denies any chest pain. Denies any orthopnea or PND. She does report wheezing. She denies any chest pain. Denies any fevers or chills. When she presented she was found to be in atrial fibrillation with a rapid ventricular rate. She was placed on BiPAP and her respiratory status has improved. She is noted to have CO2 retention but is able to answer questions and has no obvious encephalopathy. Past Medical History Cardiac Medical History: Reports: Congestive Heart Failure - Ejection fraction of less than 25%, May 2014., Coronary Artery Disease, Hypertension Denies: DVT, Myocardial Infarction, Hyperlipidema, Pulmonary Embolism Pulmonary Medical History: Reports: Chronic Obstructive Pulmonary Disease (COPD ) - 2L nasal O2 at home, Pneumonia Denies: Asthma Neurological Medical History: Reports: None Denies: Seizures Endocrine Medical History: Denies: Diabetes Mellitus Type 1, Diabetes Mellitus Type 2, Hyperthyroidism, Hypothyroidism Renal/ Medical History: Reports: None Malignancy Medical History: Reports: None GI Medical History: Reports: Gastroesophageal Reflux Disease - Mild, Hiatal Hernia Denies: Cirrhosis, Hepatitis Musculoskeltal Medical History: Reports: Arthritis Skin Medical History: Reports: None Psychiatric Medical History: Reports: Depression Hematology: Reports: Anemia Denies: Sickle Cell Disease Infectious Medical History: Reports: None Past Surgical History Past Surgical History: Reports: Cholecystectomy, Orthopedic Surgery - "back surgery", Other - Last colonoscopy many years ago Denies: Amputation, Hysterectomy, Mastectomy, Pacemaker Social History Information Source: Patient Lives with: Family Smoking Status: Former Smoker Frequency of Alcohol Use: None Hx Recreational Drug Use: No Drugs: None Hx Prescription Drug Abuse: No - Advance Directive Resuscitation Status: Full Code Family History Family History: COPD Parental Family History Reviewed: Yes Children Family History Reviewed: No Sibling(s) Family History Reviewed.: No Medication/Allergy Allergies/Adverse Reactions: No Known Allergies Allergy (Verified 06/09/17 06:27) Review of Systems Constitutional: ABSENT: chills, fever(s), headache(s), weight gain, weight loss Eyes: ABSENT: visual disturbances Ears: ABSENT: hearing changes Cardiovascular: PRESENT: dyspnea on exertion. ABSENT: chest pain, edema, orthropnea, palpitations Respiratory: PRESENT: cough, dyspnea. ABSENT: hemoptysis, sputum Gastrointestinal: ABSENT: abdominal pain, constipation, diarrhea, hematemesis, hematochezia, nausea, vomiting Genitourinary: ABSENT: dysuria, hematuria Musculoskeletal: ABSENT: joint swelling Integumentary: ABSENT: rash, wounds Neurological: ABSENT: abnormal gait, abnormal speech, confusion, dizziness, focal weakness, syncope Psychiatric: ABSENT: depression Endocrine: ABSENT: cold intolerance, heat intolerance, polydipsia, polyuria Hematologic/Lymphatic: ABSENT: easy bleeding, easy bruising Physical Exam Vital Signs: Temp Pulse Resp BP Pulse Ox 97.8 F 106 H 22 H 120/97 H 95 06/09/17 08:21 06/09/17 06:21 06/09/17 08:15 06/09/17 08:01 06/09/17 08:15 General appearance: PRESENT: mild distress Head exam: PRESENT: atraumatic, normocephalic Eye exam: PRESENT: conjunctiva pink, EOMI, PERRLA. ABSENT: scleral icterus Ear exam: PRESENT: normal external ear exam Mouth exam: PRESENT: moist, tongue midline Neck exam: ABSENT: carotid bruit, JVD, lymphadenopathy, thyromegaly Respiratory exam: PRESENT: wheezes - Bilateral expiratory wheezes. ABSENT: rales, rhonchi Cardiovascular exam: PRESENT: tachycardia. ABSENT: diastolic murmur, rubs, systolic murmur Pulses: PRESENT: normal dorsalis pedis pul GI/Abdominal exam: PRESENT: normal bowel sounds, soft. ABSENT: distended, guarding, mass, organolmegaly, rebound, tenderness Rectal exam: PRESENT: deferred Extremities exam: ABSENT: calf tenderness, clubbing, pedal edema Neurological exam: PRESENT: alert, awake, oriented to person, oriented to place , oriented to time, oriented to situation, CN II-XII grossly intact. ABSENT: motor sensory deficit Psychiatric exam: PRESENT: appropriate affect Skin exam: PRESENT: dry, intact, warm. ABSENT: cyanosis, rash Results Impressions: Chest X-Ray 06/09/17 06:11 IMPRESSION: No acute cardiopulmonary findings. Mild chronic interstitial lung disease. Assessment & Plan - Diagnosis (1) Acute and chronic respiratory failure ([id number]) Qualifiers: Is this a current diagnosis for this admission?: YesPlan: Patient has acute respiratory failure secondary to acute COPD exacerbation. Patient is being treated with BiPAP currently. We will give IV steroids, nebulizers, IV Levaquin. (2) Atrial fibrillation with rapid ventricular response Is this a current diagnosis for this admission?: YesPlan: Patient is currently on a diltiazem drip. Will continue with that. (3) Anemia Qualifiers: Anemia type: unspecified type Qualified Code(s): D64.9 - Anemia, unspecified Is this a current diagnosis for this admission?: Yes (4) COPD exacerbation Is this a current diagnosis for this admission?: YesPlan: Treat with BiPAP, steroids, nebulizers. (5) Chronic systolic (congestive) heart failure Is this a current diagnosis for this admission?: YesPlan: Patient has chronic systolic congestive heart failure. Appears to be currently euvolemic. (6) Coronary artery disease Qualifiers: Coronary Disease-Associated Artery/Lesion type: [place] artery [place] vs. transplanted heart: [place] heart Associated angina: without angina Qualified Code(s): I25.10 - Atherosclerotic heart disease of [place] coronary artery without angina pectoris Is this a current diagnosis for this admission?: YesPlan: Denies any chest pain. (7) DVT prophylaxis Is this a current diagnosis for this admission?: YesPlan: We will give Lovenox. (8) Depression Qualifiers: Depression Type: unspecified Qualified Code(s): F32.9 - Major depressive disorder, single episode, unspecified Is this a current diagnosis for this admission?: Yes (9) GERD (gastroesophageal reflux disease) Qualifiers: Esophagitis presence: without esophagitis Qualified Code(s): K21.9 - Gastro-esophageal reflux disease without esophagitis Is this a current diagnosis for this admission?: Yes (10) Hypertension Qualifiers: Hypertension type: essential hypertension Qualified Code(s): I10 - Essential (primary) hypertension Is this a current diagnosis for this admission?: Yes - Time Time Spent: 50 to 70 Minutes - Inpatient Certification Medical Necessity: Need Close Monitoring Due to Risk of Patient Decompensation, Need for IV Antibiotics
[2017-06-09] MEDS: LEVOFLOXACIN 750 MG/D5W RTU 150 ML IV SCH (10:57)
[2017-06-09] MEDS: FAMOTIDINE 20 MG TABLET PO SCH ×2 (10:58→21:44)
[2017-06-09] MEDS ORDERED: ENOXAPARIN SODIUM INJ 40 MG/0.4 ML DISP.SYRIN SUBCUT ONE (11:00)
[2017-06-09] MEDS: ENOXAPARIN SODIUM INJ 40 MG/0.4 ML DISP.SYRIN SUBCUT SCH (11:01)
[2017-06-09] MEDS: IPRATROPIUM/ALBUTEROL 0.5-2.5 MG/3 ML AMPUL NEB SCH ×3 (12:10→20:31)
--- NOTE | 2017-06-09 13:02 | EKG REPORT ---
SEVERITY:- BORDERLINE ECG - SINUS TACHYCARDIA BORDERLINE LEFT AXIS DEVIATION BORDERLINE R WAVE PROGRESSION, ANTERIOR LEADS : Confirmed by: Fernando Herman MD 09-Jun-2017 13:02:28
[2017-06-09] MEDS: METHYLPREDNISOLONE INJ 40 MG/1 ML SDV IV SCH ×2 (13:29→21:45)
[2017-06-09] MEDS ORDERED: IPRATROPIUM/ALBUTEROL 0.5-2.5 MG/3 ML AMPUL NEB PRN (18:38)
[2017-06-09] MEDS ORDERED: ALBUTEROL SULFATE HFA (90 MCG/PUFF) 8 GM MDI (1 MDI/ER DISP) IH PRN (18:38)
[2017-06-09] MEDS ORDERED: ALBUTEROL SULFATE HFA (90 MCG/PUFF) 200 PUFF/8.5 GM MDI IH PRN (18:54)
[2017-06-09] MEDS: MONTELUKAST SODIUM 10 MG TABLET PO SCH (21:43)
[2017-06-09] MEDS: TOLTERODINE TARTRATE 1 MG TABLET PO SCH (21:45)
[2017-06-09] MEDS: FLUTICASONE NASAL SPRAY 50 MCG/SPRY 120 SPRAY/16 GM NAREB SCH (21:49)
[2017-06-09] MEDS: OXYCODONE HCL IR 5 MG TABLET PO PRN (21:53)
[2017-06-10] MEDS: METHYLPREDNISOLONE INJ 40 MG/1 ML SDV IV SCH ×3 (05:12→21:16)
[2017-06-10 05:26] LABS: HEMATOCRIT 30.1 % (36.0-47.0); HEMOGLOBIN 9.8 g/dL (12.0-15.5); HGB HCT DIFFERENCE -0.7; MEAN CORPUSCULAR HGB CONC 32.6 g/dL (32.0-36.0); MEAN CORPUSCULAR VOLUME 89 fl (80-97); RED BLOOD COUNT 3.39 10^6/uL (3.72-5.28); WHITE BLOOD COUNT 7.6 10^3/uL (4.0-10.5)
[2017-06-10 06:02] LABS: BLOOD UREA NITROGEN 22 mg/dL (7-20); CALCIUM 8.9 mg/dL (8.4-10.2); CHLORIDE 93 mmol/L (98-107); CREATININE RESULT 0.62 mg/dL (0.52-1.25); GLUCOSE 183 mg/dL (75-110); POTASSIUM 4.3 mmol/L (3.6-5.0); SODIUM 138.6 mmol/L (137-145)
[2017-06-10 06:09] LABS: ANION GAP 6 (5-19)
[2017-06-10 06:18] LABS: CARBON DIOXIDE 40 mmol/L (22-30)
[2017-06-10] MEDS: IPRATROPIUM/ALBUTEROL 0.5-2.5 MG/3 ML AMPUL NEB SCH ×4 (08:21→19:32)
[2017-06-10] MEDS: LEVOFLOXACIN 750 MG/D5W RTU 150 ML IV SCH (09:37)
[2017-06-10] MEDS: MULTIVITAMIN TABLET PO SCH (09:38)
[2017-06-10] MEDS: TOLTERODINE TARTRATE 1 MG TABLET PO SCH ×2 (09:38→21:15)
[2017-06-10] MEDS: DILTIAZEM HCL 180 MG CAPSULE.CR PO SCH (09:38)
[2017-06-10] MEDS: CARVEDILOL 3.125 MG TABLET PO SCH (09:39)
[2017-06-10] MEDS: ROFLUMILAST 500 MCG TABLET PO SCH (09:39)
[2017-06-10] MEDS: OLANZAPINE 2.5 MG TABLET PO SCH (09:39)
[2017-06-10] MEDS: ASPIRIN 81 MG TABLET, ENT COATED PO SCH (09:39)
[2017-06-10] MEDS: LANSOPRAZOLE 30 MG TAB.RAP.DR PO SCH (09:39)
[2017-06-10] MEDS: FAMOTIDINE 20 MG TABLET PO SCH ×2 (09:39→21:16)
[2017-06-10] MEDS: PREDNISONE 10 MG TABLET PO SCH (09:40)
[2017-06-10] MEDS: FLUTICASONE NASAL SPRAY 50 MCG/SPRY 120 SPRAY/16 GM NAREB SCH ×2 (09:43→21:15)
--- NOTE | 2017-06-10 09:43 | PDOC PROGRESS REPORT ---
Subjective Progress Note for:: 06/10/17 Subjective:: Reports that she feels less short of breath. Physical Exam Vital Signs: Temp Pulse Resp BP Pulse Ox 97.9 F 90 14 140/59 H 98 06/10/17 07:54 06/10/17 08:21 06/10/17 08:21 06/10/17 07:54 06/10/17 08:21 Intake & Output 06/09/17 06/10/17 06/11/17 06:59 06:59 06:59 Intake Total 1146 Balance 1146 Weight 58.2 kg General appearance: PRESENT: no acute distress Eye exam: PRESENT: conjunctiva pink. ABSENT: scleral icterus Mouth exam: PRESENT: moist, tongue midline Neck exam: ABSENT: carotid bruit, JVD, lymphadenopathy, thyromegaly Respiratory exam: PRESENT: wheezes - Few expiratory wheezes.. ABSENT: rales, rhonchi Cardiovascular exam: PRESENT: RRR. ABSENT: diastolic murmur, rubs, systolic murmur GI/Abdominal exam: PRESENT: normal bowel sounds, soft. ABSENT: distended, guarding, mass, organolmegaly, rebound, tenderness Extremities exam: ABSENT: calf tenderness, clubbing, pedal edema Neurological exam: PRESENT: alert, awake, oriented to person, oriented to place , oriented to time, oriented to situation, CN II-XII grossly intact. ABSENT: motor sensory deficit Psychiatric exam: PRESENT: appropriate affect Skin exam: PRESENT: dry, intact, warm. ABSENT: cyanosis, rash Results Laboratory Results: 06/10/17 05:10 06/10/17 05:10 06/10/17 06/10/17 05:10 05:10 WBC 7.6 RBC 3.39 L Hgb 9.8 L Hct 30.1 L MCV 89 MCH 29.0 MCHC 32.6 RDW 16.0 H Plt Count 220 Sodium 138.6 Potassium 4.3 Chloride 93 L Carbon Dioxide 40 H* Anion Gap 6 BUN 22 H Creatinine 0.62 Est GFR ( Amer) > 60 Est GFR (Non-Af Amer) > 60 Glucose 183 H Calcium 8.9 06/09/17 10:20 Troponin I 0.014 Impressions: Chest X-Ray 06/09/17 06:11 IMPRESSION: No acute cardiopulmonary findings. Mild chronic interstitial lung disease. Assessment & Plan - Diagnosis (1) Acute and chronic respiratory failure ([id number]) Qualifiers: Respiratory failure complication: hypercapnia Qualified Code(s): J96.22 - Acute and chronic respiratory failure with hypercapnia Is this a current diagnosis for this admission?: YesPlan: Patient has acute respiratory failure secondary to acute COPD exacerbation. Patient is being treated with BiPAP currently. We will give IV steroids, nebulizers, IV Levaquin. (2) Atrial fibrillation with rapid ventricular response Is this a current diagnosis for this admission?: YesPlan: Patient is in a regular rhythm today. (3) Anemia Qualifiers: Anemia type: unspecified type Qualified Code(s): D64.9 - Anemia, unspecified Is this a current diagnosis for this admission?: Yes (4) COPD exacerbation Is this a current diagnosis for this admission?: YesPlan: Treat with BiPAP, steroids, nebulizers. (5) Chronic systolic (congestive) heart failure Is this a current diagnosis for this admission?: YesPlan: Patient has chronic systolic congestive heart failure. Appears to be currently euvolemic. (6) Coronary artery disease Qualifiers: Coronary Disease-Associated Artery/Lesion type: [place] artery [place] vs. transplanted heart: [place] heart Associated angina: without angina Qualified Code(s): I25.10 - Atherosclerotic heart disease of [place] coronary artery without angina pectoris Is this a current diagnosis for this admission?: YesPlan: Denies any chest pain. (7) DVT prophylaxis Is this a current diagnosis for this admission?: YesPlan: We will give Lovenox. (8) Depression Qualifiers: Depression Type: unspecified Qualified Code(s): F32.9 - Major depressive disorder, single episode, unspecified Is this a current diagnosis for this admission?: Yes (9) GERD (gastroesophageal reflux disease) Qualifiers: Esophagitis presence: without esophagitis Qualified Code(s): K21.9 - Gastro-esophageal reflux disease without esophagitis Is this a current diagnosis for this admission?: Yes (10) Hypertension Qualifiers: Hypertension type: essential hypertension Qualified Code(s): I10 - Essential (primary) hypertension Is this a current diagnosis for this admission?: Yes - Time Time Spent with patient: 25-34 minutes - Inpatient Certification Medical Necessity: Need Close Monitoring Due to Risk of Patient Decompensation
[2017-06-10] MEDS ORDERED: ENOXAPARIN SODIUM INJ 40 MG/0.4 ML DISP.SYRIN SUBCUT ONE (09:45)
[2017-06-10] MEDS ORDERED: (PENDING PHARMACY ID) (Tolterodine Tartrate [Detrol La] 2 MG) PO SCH (10:00)
--- NOTE | 2017-06-10 16:41 | EKG REPORT ---
SEVERITY:- ABNORMAL ECG - SINUS TACHYCARDIA MULTIPLE ATRIAL PREMATURE COMPLEXES : Confirmed by: Fernando Herman MD 10-Jun-2017 16:40:21
[2017-06-10] MEDS: MONTELUKAST SODIUM 10 MG TABLET PO SCH (21:16)
[2017-06-10] MEDS: OXYCODONE HCL IR 5 MG TABLET PO PRN (21:17)
[2017-06-11 04:56] LABS: ABSOLUTE LYMPHOCYTES (AUTO) 0.8 10^3/uL (0.5-4.7); ABSOLUTE MONOCYTES (AUTO) 0.2 10^3/uL (0.1-1.4); ABSOLUTE NEUT (AUTO) 13.2 10^3/uL (1.7-8.2); BASOPHILS % (AUTO) 0.1 % (0-2); HEMOGLOBIN 10.8 g/dL (12.0-15.5); HGB HCT DIFFERENCE -1.6; LYMPHOCYTES % (AUTO) 5.5 % (13-45); MEAN CORPUSCULAR HEMOGLOBIN 28.8 pg (27.0-33.4); MEAN CORPUSCULAR HGB CONC 31.8 g/dL (32.0-36.0); MEAN CORPUSCULAR VOLUME 90 fl (80-97); MONOCYTES % (AUTO) 1.3 % (3-13); RED BLOOD COUNT 3.76 10^6/uL (3.72-5.28); RED CELL DISTRIBUTION WIDTH 16.1 % (11.5-14.0); SEGMENTED NEUTROPHILS % (AUTO) 93.1 % (42-78); WHITE BLOOD COUNT 14.2 10^3/uL (4.0-10.5)
[2017-06-11 05:20] LABS: BLOOD UREA NITROGEN 31 mg/dL (7-20); CALCIUM 9.4 mg/dL (8.4-10.2); CHLORIDE 93 mmol/L (98-107); CREATININE RESULT 0.61 mg/dL (0.52-1.25); GLUCOSE 141 mg/dL (75-110); POTASSIUM 4.5 mmol/L (3.6-5.0); SODIUM 138.8 mmol/L (137-145)
[2017-06-11 05:27] LABS: CARBON DIOXIDE 39 mmol/L (22-30)
[2017-06-11 05:51] LABS: ANION GAP 7 (5-19)
[2017-06-11] MEDS: METHYLPREDNISOLONE INJ 40 MG/1 ML SDV IV SCH ×3 (05:54→21:35)
[2017-06-11] MEDS: IPRATROPIUM/ALBUTEROL 0.5-2.5 MG/3 ML AMPUL NEB SCH ×4 (08:34→20:04)
--- NOTE | 2017-06-11 09:34 | PDOC PROGRESS REPORT ---
Subjective Progress Note for:: 06/11/17 Subjective:: Reports that she feels less short of breath. Physical Exam Vital Signs: Temp Pulse Resp BP Pulse Ox 97.5 F 98 14 144/64 H 96 06/11/17 07:25 06/11/17 08:34 06/11/17 08:34 06/11/17 07:25 06/11/17 08:34 Intake & Output 06/10/17 06/11/17 06/12/17 06:59 06:59 06:59 Intake Total 1146 1084 Output Total 1600 Balance 1146 -516 Weight 58.2 kg 56.8 kg General appearance: PRESENT: no acute distress Eye exam: PRESENT: conjunctiva pink. ABSENT: scleral icterus Mouth exam: PRESENT: moist, tongue midline Neck exam: ABSENT: carotid bruit, JVD, lymphadenopathy, thyromegaly Respiratory exam: PRESENT: clear to auscultation jaime. ABSENT: rales, rhonchi, wheezes Cardiovascular exam: PRESENT: RRR. ABSENT: diastolic murmur, rubs, systolic murmur GI/Abdominal exam: PRESENT: normal bowel sounds, soft. ABSENT: distended, guarding, mass, organolmegaly, rebound, tenderness Extremities exam: ABSENT: calf tenderness, clubbing, pedal edema Neurological exam: PRESENT: alert, awake, oriented to person, oriented to place , oriented to time, oriented to situation, CN II-XII grossly intact. ABSENT: motor sensory deficit Psychiatric exam: PRESENT: appropriate affect Skin exam: PRESENT: dry, intact, warm. ABSENT: cyanosis, rash Results Laboratory Results: 06/11/17 04:30 06/11/17 04:30 06/10/17 06/11/17 06/11/17 05:10 04:30 04:30 WBC 14.2 H RBC 3.76 Hgb 10.8 L Hct 34.0 L MCV 90 MCH 28.8 MCHC 31.8 L RDW 16.1 H Plt Count 228 Seg Neutrophils % 93.1 H Lymphocytes % 5.5 L Monocytes % 1.3 L Eosinophils % 0.0 Basophils % 0.1 Absolute Neutrophils 13.2 H Absolute Lymphocytes 0.8 Absolute Monocytes 0.2 Absolute Eosinophils 0.0 Absolute Basophils 0.0 Sodium 138.6 138.8 Potassium 4.3 4.5 Chloride 93 L 93 L Carbon Dioxide 40 H* 39 H Anion Gap 6 7 BUN 22 H 31 H Creatinine 0.62 0.61 Est GFR ( Amer) > 60 > 60 Est GFR (Non-Af Amer) > 60 > 60 Glucose 183 H 141 H Calcium 8.9 9.4 06/09/17 10:20 Troponin I 0.014 Impressions: Chest X-Ray 06/09/17 06:11 IMPRESSION: No acute cardiopulmonary findings. Mild chronic interstitial lung disease. Assessment & Plan - Diagnosis (1) Acute and chronic respiratory failure ([id number]) Qualifiers: Respiratory failure complication: hypercapnia Qualified Code(s): J96.22 - Acute and chronic respiratory failure with hypercapnia Is this a current diagnosis for this admission?: YesPlan: Patient has acute respiratory failure secondary to acute COPD exacerbation. We will continue IV steroids, nebulizers, IV Levaquin. (2) Atrial fibrillation with rapid ventricular response Is this a current diagnosis for this admission?: YesPlan: Patient is in a regular rhythm today. (3) Anemia Qualifiers: Anemia type: unspecified type Qualified Code(s): D64.9 - Anemia, unspecified Is this a current diagnosis for this admission?: Yes (4) COPD exacerbation Is this a current diagnosis for this admission?: YesPlan: Treat with BiPAP prn, steroids, nebulizers. (5) Chronic systolic (congestive) heart failure Is this a current diagnosis for this admission?: YesPlan: Patient has chronic systolic congestive heart failure. Appears to be currently euvolemic. (6) Coronary artery disease Qualifiers: Coronary Disease-Associated Artery/Lesion type: [place] artery [place] vs. transplanted heart: [place] heart Associated angina: without angina Qualified Code(s): I25.10 - Atherosclerotic heart disease of [place] coronary artery without angina pectoris Is this a current diagnosis for this admission?: YesPlan: Denies any chest pain. (7) DVT prophylaxis Is this a current diagnosis for this admission?: YesPlan: We will give Lovenox. (8) Depression Qualifiers: Depression Type: unspecified Qualified Code(s): F32.9 - Major depressive disorder, single episode, unspecified Is this a current diagnosis for this admission?: Yes (9) GERD (gastroesophageal reflux disease) Qualifiers: Esophagitis presence: without esophagitis Qualified Code(s): K21.9 - Gastro-esophageal reflux disease without esophagitis Is this a current diagnosis for this admission?: Yes (10) Hypertension Qualifiers: Hypertension type: essential hypertension Qualified Code(s): I10 - Essential (primary) hypertension Is this a current diagnosis for this admission?: Yes - Time Time Spent with patient: 25-34 minutes - Plan Summary Plan Summary: If she continues to improve we can hopefully discharge home tomorrow.
[2017-06-11] MEDS: LANSOPRAZOLE 30 MG TAB.RAP.DR PO SCH (10:09)
[2017-06-11] MEDS: LEVOFLOXACIN 750 MG/D5W RTU 150 ML IV SCH (10:09)
[2017-06-11] MEDS: FLUTICASONE NASAL SPRAY 50 MCG/SPRY 120 SPRAY/16 GM NAREB SCH ×2 (10:09→21:35)
[2017-06-11] MEDS: MULTIVITAMIN TABLET PO SCH (10:10)
[2017-06-11] MEDS: CARVEDILOL 3.125 MG TABLET PO SCH (10:10)
[2017-06-11] MEDS: OLANZAPINE 2.5 MG TABLET PO SCH (10:10)
[2017-06-11] MEDS: PREDNISONE 10 MG TABLET PO SCH (10:10)
[2017-06-11] MEDS: TOLTERODINE TARTRATE 1 MG TABLET PO SCH ×2 (10:12→21:35)
[2017-06-11] MEDS: DILTIAZEM HCL 180 MG CAPSULE.CR PO SCH (10:12)
[2017-06-11] MEDS: FAMOTIDINE 20 MG TABLET PO SCH ×2 (10:12→21:35)
[2017-06-11] MEDS: ROFLUMILAST 500 MCG TABLET PO SCH (10:12)
[2017-06-11] MEDS: ASPIRIN 81 MG TABLET, ENT COATED PO SCH (10:13)
[2017-06-11] MEDS: ENOXAPARIN SODIUM INJ 40 MG/0.4 ML DISP.SYRIN SUBCUT SCH (11:00)
[2017-06-11] MEDS: OXYCODONE HCL IR 5 MG TABLET PO PRN (18:40)
[2017-06-11] MEDS: MONTELUKAST SODIUM 10 MG TABLET PO SCH (21:35)
[2017-06-12 05:07] LABS: ABSOLUTE LYMPHOCYTES (AUTO) 0.7 10^3/uL (0.5-4.7); ABSOLUTE MONOCYTES (AUTO) 0.2 10^3/uL (0.1-1.4); ABSOLUTE NEUT (AUTO) 12.1 10^3/uL (1.7-8.2); HEMATOCRIT 33.6 % (36.0-47.0); HEMOGLOBIN 10.7 g/dL (12.0-15.5); HGB HCT DIFFERENCE -1.5; LYMPHOCYTES % (AUTO) 5.3 % (13-45); MEAN CORPUSCULAR HEMOGLOBIN 28.1 pg (27.0-33.4); MEAN CORPUSCULAR HGB CONC 31.7 g/dL (32.0-36.0); MEAN CORPUSCULAR VOLUME 89 fl (80-97); MONOCYTES % (AUTO) 1.4 % (3-13); RED BLOOD COUNT 3.79 10^6/uL (3.72-5.28); RED CELL DISTRIBUTION WIDTH 16.1 % (11.5-14.0); SEGMENTED NEUTROPHILS % (AUTO) 93.3 % (42-78)
[2017-06-12 05:38] LABS: BLOOD UREA NITROGEN 34 mg/dL (7-20); CALCIUM 9.4 mg/dL (8.4-10.2); CHLORIDE 94 mmol/L (98-107); CREATININE RESULT 0.73 mg/dL (0.52-1.25); GLUCOSE 143 mg/dL (75-110); SODIUM 139.1 mmol/L (137-145)
[2017-06-12 05:44] LABS: ANION GAP 6 (5-19); CARBON DIOXIDE 39 mmol/L (22-30)
[2017-06-12] MEDS: METHYLPREDNISOLONE INJ 40 MG/1 ML SDV IV SCH (06:27)
[2017-06-12] MEDS: IPRATROPIUM/ALBUTEROL 0.5-2.5 MG/3 ML AMPUL NEB SCH ×4 (08:28→20:04)
[2017-06-12] MEDS: ENOXAPARIN SODIUM INJ 40 MG/0.4 ML DISP.SYRIN SUBCUT SCH (10:06)
[2017-06-12] MEDS: LEVOFLOXACIN 750 MG/D5W RTU 150 ML IV SCH (10:06)
[2017-06-12] MEDS: ASPIRIN 81 MG TABLET, ENT COATED PO SCH (10:07)
[2017-06-12] MEDS: ROFLUMILAST 500 MCG TABLET PO SCH (10:07)
[2017-06-12] MEDS: OLANZAPINE 2.5 MG TABLET PO SCH (10:07)
[2017-06-12] MEDS: PREDNISONE 10 MG TABLET PO SCH (10:08)
[2017-06-12] MEDS: MULTIVITAMIN TABLET PO SCH (10:08)
[2017-06-12] MEDS: DILTIAZEM HCL 180 MG CAPSULE.CR PO SCH (10:08)
[2017-06-12] MEDS: TOLTERODINE TARTRATE 1 MG TABLET PO SCH ×2 (10:09→22:19)
[2017-06-12] MEDS: CARVEDILOL 3.125 MG TABLET PO SCH (10:09)
[2017-06-12] MEDS: FAMOTIDINE 20 MG TABLET PO SCH ×2 (10:09→22:19)
[2017-06-12] MEDS: LANSOPRAZOLE 30 MG TAB.RAP.DR PO SCH (10:13)
[2017-06-12] MEDS: FLUTICASONE NASAL SPRAY 50 MCG/SPRY 120 SPRAY/16 GM NAREB SCH ×2 (10:14→22:19)
--- NOTE | 2017-06-12 11:34 | PDOC PROGRESS REPORT ---
Subjective Progress Note for:: 06/12/17 Subjective:: Reports that her breathing is doing much better. She is concerned about going home as she reports that she is having trouble with her CPAP because it is set at a pressure of 30 Physical Exam Vital Signs: Temp Pulse Resp BP Pulse Ox 98.6 F 98 18 128/58 H 94 06/12/17 11:21 06/12/17 11:21 06/12/17 11:21 06/12/17 11:21 06/12/17 11:21 Intake & Output 06/11/17 06/12/17 06/13/17 06:59 06:59 06:59 Intake Total 1084 722 Output Total 1600 400 Balance -516 322 Weight 56.8 kg 58.1 kg General appearance: PRESENT: no acute distress Eye exam: PRESENT: conjunctiva pink. ABSENT: scleral icterus Mouth exam: PRESENT: moist, tongue midline Neck exam: ABSENT: JVD Respiratory exam: PRESENT: clear to auscultation jaime. ABSENT: rales, rhonchi, wheezes Cardiovascular exam: PRESENT: RRR. ABSENT: diastolic murmur, rubs, systolic murmur GI/Abdominal exam: PRESENT: normal bowel sounds, soft. ABSENT: distended, guarding, mass, organolmegaly, rebound, tenderness Extremities exam: ABSENT: calf tenderness, clubbing, pedal edema Neurological exam: PRESENT: alert, awake, oriented to person, oriented to place , oriented to time, oriented to situation, CN II-XII grossly intact. ABSENT: motor sensory deficit Psychiatric exam: PRESENT: appropriate affect Skin exam: PRESENT: dry, intact, warm. ABSENT: cyanosis, rash Results Laboratory Results: 06/12/17 04:36 06/12/17 04:36 06/12/17 06/12/17 04:36 04:36 WBC 13.0 H RBC 3.79 Hgb 10.7 L Hct 33.6 L MCV 89 MCH 28.1 MCHC 31.7 L RDW 16.1 H Plt Count 235 Seg Neutrophils % 93.3 H Lymphocytes % 5.3 L Monocytes % 1.4 L Eosinophils % 0.0 Basophils % 0.0 Absolute Neutrophils 12.1 H Absolute Lymphocytes 0.7 Absolute Monocytes 0.2 Absolute Eosinophils 0.0 Absolute Basophils 0.0 Sodium 139.1 Potassium 4.0 Chloride 94 L Carbon Dioxide 39 H Anion Gap 6 BUN 34 H Creatinine 0.73 Est GFR ( Amer) > 60 Est GFR (Non-Af Amer) > 60 Glucose 143 H Calcium 9.4 06/09/17 10:20 Troponin I 0.014 Impressions: Chest X-Ray 06/09/17 06:11 IMPRESSION: No acute cardiopulmonary findings. Mild chronic interstitial lung disease. Assessment & Plan - Diagnosis (1) Acute and chronic respiratory failure ([id number]) Qualifiers: Respiratory failure complication: hypercapnia Qualified Code(s): J96.22 - Acute and chronic respiratory failure with hypercapnia Is this a current diagnosis for this admission?: YesPlan: Patient has acute respiratory failure secondary to acute COPD exacerbation. We will continue IV steroids, nebulizers, IV Levaquin. The patient is much improved and will most likely be able to be discharged home tomorrow. (2) Atrial fibrillation with rapid ventricular response Is this a current diagnosis for this admission?: YesPlan: Patient is in a regular rhythm today. (3) Anemia Qualifiers: Anemia type: unspecified type Qualified Code(s): D64.9 - Anemia, unspecified Is this a current diagnosis for this admission?: Yes (4) COPD exacerbation Is this a current diagnosis for this admission?: YesPlan: Treat with BiPAP prn, steroids, nebulizers. (5) Chronic systolic (congestive) heart failure Is this a current diagnosis for this admission?: YesPlan: Patient has chronic systolic congestive heart failure. Appears to be currently euvolemic. (6) Coronary artery disease Qualifiers: Coronary Disease-Associated Artery/Lesion type: [place] artery [place] vs. transplanted heart: [place] heart Associated angina: without angina Qualified Code(s): I25.10 - Atherosclerotic heart disease of [place] coronary artery without angina pectoris Is this a current diagnosis for this admission?: YesPlan: Denies any chest pain. (7) DVT prophylaxis Is this a current diagnosis for this admission?: YesPlan: We will give Lovenox. (8) Depression Qualifiers: Depression Type: unspecified Qualified Code(s): F32.9 - Major depressive disorder, single episode, unspecified Is this a current diagnosis for this admission?: Yes (9) GERD (gastroesophageal reflux disease) Qualifiers: Esophagitis presence: without esophagitis Qualified Code(s): K21.9 - Gastro-esophageal reflux disease without esophagitis Is this a current diagnosis for this admission?: Yes (10) Hypertension Qualifiers: Hypertension type: essential hypertension Qualified Code(s): I10 - Essential (primary) hypertension Is this a current diagnosis for this admission?: Yes - Time Time Spent with patient: 25-34 minutes - Inpatient Certification Medical Necessity: Need Close Monitoring Due to Risk of Patient Decompensation - Plan Summary Plan Summary: The patient is improving and can most likely be discharged home tomorrow. She is concerned because she reports that her CPAP machine is set at a pressure of 30 and she is unable to wear it. I have asked the patient to have her family bring in her CPAP machine so we can assess to see if it is truly set at a pressure of 30.
[2017-06-12] MEDS ORDERED: PREDNISONE 20 MG TABLET PO SCH (12:00)
[2017-06-12] MEDS ORDERED: ONDANSETRON 4 MG TAB.RAPDIS PO PRN ×2 (14:11→14:13)
[2017-06-12] MEDS ORDERED: ONDANSETRON HCL INJ/PF 4 MG/2 ML SDV IV PRN (14:12)
[2017-06-12] MEDS: OXYCODONE HCL IR 5 MG TABLET PO PRN (18:37)
[2017-06-12] MEDS ORDERED: DILTIAZEM HCL 60 MG TABLET PO ONE (20:04)
[2017-06-12] MEDS ORDERED: DILTIAZEM HCL 60 MG TABLET ONE (20:13)
[2017-06-12 20:39] LABS: ANION GAP 6 (5-19); BLOOD UREA NITROGEN 39 mg/dL (7-20); CALCIUM 9.4 mg/dL (8.4-10.2); CARBON DIOXIDE 39 mmol/L (22-30); CHLORIDE 95 mmol/L (98-107); CREATININE RESULT 0.75 mg/dL (0.52-1.25); GLUCOSE 179 mg/dL (75-110); SODIUM 139.9 mmol/L (137-145)
[2017-06-12 20:40] LABS: CREATINE KINASE < 20 U/L (30-135)
[2017-06-12 20:52] LABS: CREATINE KINASE MB 0.76 ng/mL (<4.55); TROPONIN I 0.013 ng/mL
[2017-06-12 21:13] LABS: ARTERIAL BLOOD BASE EXCESS 13.4 mmol/L; ARTERIAL BLOOD O2 SATURATION 95.1 % (94-98)
--- NOTE | 2017-06-12 22:16 | EKG REPORT ---
SEVERITY:- BORDERLINE ECG - SINUS TACHYCARDIA WITH IRREGULAR RATE [id number] : Confirmed by: Emmett Troncoso 12-Jun-2017 22:16:12
[2017-06-12] MEDS: MONTELUKAST SODIUM 10 MG TABLET PO SCH (22:19)
[2017-06-13 05:05] LABS: CREATINE KINASE MB 0.62 ng/mL (<4.55); TROPONIN I 0.023 ng/mL
[2017-06-13] MEDS: LANSOPRAZOLE 30 MG TAB.RAP.DR PO SCH (06:41)
[2017-06-13] MEDS: IPRATROPIUM/ALBUTEROL 0.5-2.5 MG/3 ML AMPUL NEB SCH (08:23)
[2017-06-13] MEDS: LEVOFLOXACIN 750 MG TABLET PO SCH (09:29)
[2017-06-13] MEDS: DILTIAZEM HCL 180 MG CAPSULE.CR PO SCH (09:29)
[2017-06-13] MEDS: OLANZAPINE 2.5 MG TABLET PO SCH (09:29)
[2017-06-13] MEDS: MULTIVITAMIN TABLET PO SCH (09:30)
[2017-06-13] MEDS: CARVEDILOL 3.125 MG TABLET PO SCH (09:30)
[2017-06-13] MEDS: TOLTERODINE TARTRATE 1 MG TABLET PO SCH ×2 (09:30→22:48)
[2017-06-13] MEDS: FLUTICASONE NASAL SPRAY 50 MCG/SPRY 120 SPRAY/16 GM NAREB SCH ×2 (09:30→22:48)
[2017-06-13] MEDS: ROFLUMILAST 500 MCG TABLET PO SCH (09:30)
[2017-06-13] MEDS: ASPIRIN 81 MG TABLET, ENT COATED PO SCH (09:30)
[2017-06-13] MEDS: FAMOTIDINE 20 MG TABLET PO SCH ×2 (09:30→22:48)
[2017-06-13] MEDS: ENOXAPARIN SODIUM INJ 40 MG/0.4 ML DISP.SYRIN SUBCUT SCH (09:31)
[2017-06-13] MEDS ORDERED: LEVALBUTEROL HCL NEB 1.25 MG/3 ML AMPUL NEB PRN (10:46)
--- NOTE | 2017-06-13 10:55 | PDOC PROGRESS REPORT ---
Subjective Progress Note for:: 06/13/17 Subjective:: Patient reportedly had an episode of breathing spell last night. Patient reports tachycardia as well. Denies any chills or fever nor diarrhea. No chest pain, wheezing, nor any nausea or vomiting. Patient denies feeling dizzy. Patient reports that somebody changed her settings for the trilogy ventilator that she is worried due to the high pressure. Physical Exam Vital Signs: Temp Pulse Resp BP Pulse Ox 98.4 F 91 14 146/67 H 95 06/13/17 07:36 06/13/17 08:23 06/13/17 08:23 06/13/17 07:36 06/13/17 08:23 Intake & Output 06/12/17 06/13/17 06/14/17 06:59 06:59 06:59 Intake Total 722 1326 Output Total 400 400 Balance 322 926 Weight 58.1 kg 58.7 kg General appearance: PRESENT: no acute distress, cooperative Head exam: PRESENT: normocephalic Eye exam: PRESENT: EOMI Mouth exam: PRESENT: moist, neck supple Neck exam: ABSENT: JVD Respiratory exam: PRESENT: unlabored. ABSENT: rhonchi, wheezes Cardiovascular exam: PRESENT: RRR. ABSENT: gallop GI/Abdominal exam: PRESENT: normal bowel sounds, soft. ABSENT: distended, tenderness Extremities exam: PRESENT: other - Trace lower extremity edema Neurological exam: PRESENT: alert, awake, oriented to situation Skin exam: PRESENT: dry, warm. ABSENT: cyanosis Results Laboratory Results: 06/12/17 04:36 06/12/17 20:24 06/12/17 06/12/17 20:24 20:55 Carbonic Acid 1.92 H HCO3/H2CO3 Ratio 21:1 ABG pH 7.42 ABG pCO2 63.9 H ABG pO2 76.8 L ABG HCO3 40.5 H ABG O2 Saturation 95.1 ABG Base Excess 13.4 FiO2 30% Sodium 139.9 Potassium 4.0 Chloride 95 L Carbon Dioxide 39 H Anion Gap 6 BUN 39 H Creatinine 0.75 Est GFR ( Amer) > 60 Est GFR (Non-Af Amer) > 60 Glucose 179 H Calcium 9.4 06/09/17 06/12/17 06/12/17 10:20 20:24 20:24 Creatine Kinase < 20 L CK-MB (CK-2) 0.76 Troponin I 0.014 0.013 06/13/17 06/13/17 04:14 04:14 Creatine Kinase < 20 L CK-MB (CK-2) 0.62 Troponin I 0.023 Impressions: Chest X-Ray 06/09/17 06:11 IMPRESSION: No acute cardiopulmonary findings. Mild chronic interstitial lung disease. Assessment & Plan - Diagnosis (1) Acute and chronic respiratory failure ([id number]) Qualifiers: Respiratory failure complication: hypercapnia Qualified Code(s): J96.22 - Acute and chronic respiratory failure with hypercapnia Is this a current diagnosis for this admission?: Yes (2) Atrial fibrillation with rapid ventricular response Is this a current diagnosis for this admission?: Yes (3) COPD exacerbation Is this a current diagnosis for this admission?: Yes (4) Anemia Qualifiers: Anemia type: unspecified type Qualified Code(s): D64.9 - Anemia, unspecified Is this a current diagnosis for this admission?: Yes (5) Chronic systolic (congestive) heart failure Is this a current diagnosis for this admission?: Yes (6) Coronary artery disease Qualifiers: Coronary Disease-Associated Artery/Lesion type: [place] artery [place] vs. transplanted heart: [place] heart Associated angina: without angina Qualified Code(s): I25.10 - Atherosclerotic heart disease of [place] coronary artery without angina pectoris Is this a current diagnosis for this admission?: Yes (7) Depression Qualifiers: Depression Type: unspecified Qualified Code(s): F32.9 - Major depressive disorder, single episode, unspecified Is this a current diagnosis for this admission?: Yes (8) GERD (gastroesophageal reflux disease) Qualifiers: Esophagitis presence: without esophagitis Qualified Code(s): K21.9 - Gastro-esophageal reflux disease without esophagitis Is this a current diagnosis for this admission?: Yes (9) Hypertension Qualifiers: Hypertension type: essential hypertension Qualified Code(s): I10 - Essential (primary) hypertension Is this a current diagnosis for this admission?: Yes - Time Time Spent with patient: 25-34 minutes - Plan Summary Plan Summary: We are going to change the albuterol to Xopenex. Continue steroids and bronchodilators. Consult pulmonary for trilogy set up and management. Physical therapy. Continue supportive care.
[2017-06-13] MEDS: PREDNISONE 20 MG TABLET PO SCH (11:08)
[2017-06-13] MEDS: LEVALBUTEROL HCL NEB 1.25 MG/3 ML AMPUL NEB SCH ×4 (11:44→23:22)
[2017-06-13] MEDS: IPRATROPIUM BROMIDE 0.02% NEB 0.5 MG/2.5 ML AMPUL NEB SCH ×4 (11:45→23:22)
[2017-06-13 13:19] LABS: CREATINE KINASE MB 0.55 ng/mL (<4.55); TROPONIN I 0.021 ng/mL
[2017-06-13] MEDS: OXYCODONE HCL IR 5 MG TABLET PO PRN (15:41)
[2017-06-13] MEDS: MONTELUKAST SODIUM 10 MG TABLET PO SCH (22:48)
[2017-06-14] MEDS: LEVALBUTEROL HCL NEB 1.25 MG/3 ML AMPUL NEB SCH ×6 (03:58→23:37)
[2017-06-14] MEDS: IPRATROPIUM BROMIDE 0.02% NEB 0.5 MG/2.5 ML AMPUL NEB SCH ×6 (03:58→23:37)
[2017-06-14] MEDS: LANSOPRAZOLE 30 MG TAB.RAP.DR PO SCH (06:35)
[2017-06-14] MEDS: LEVOFLOXACIN 750 MG TABLET PO SCH (09:33)
[2017-06-14] MEDS: OLANZAPINE 2.5 MG TABLET PO SCH (09:33)
[2017-06-14] MEDS: TOLTERODINE TARTRATE 1 MG TABLET PO SCH ×2 (09:33→21:47)
[2017-06-14] MEDS: ASPIRIN 81 MG TABLET, ENT COATED PO SCH (09:33)
[2017-06-14] MEDS: ROFLUMILAST 500 MCG TABLET PO SCH (09:33)
[2017-06-14] MEDS: FAMOTIDINE 20 MG TABLET PO SCH ×2 (09:33→21:47)
[2017-06-14] MEDS: DILTIAZEM HCL 180 MG CAPSULE.CR PO SCH (09:33)
[2017-06-14] MEDS: ENOXAPARIN SODIUM INJ 40 MG/0.4 ML DISP.SYRIN SUBCUT SCH (09:33)
[2017-06-14] MEDS: CARVEDILOL 3.125 MG TABLET PO SCH (09:34)
[2017-06-14] MEDS: FLUTICASONE NASAL SPRAY 50 MCG/SPRY 120 SPRAY/16 GM NAREB SCH ×2 (09:34→21:47)
[2017-06-14] MEDS: MULTIVITAMIN TABLET PO SCH (09:34)
[2017-06-14] MEDS ORDERED: DILTIAZEM HCL INJ 25 MG/5 ML VIAL ONE (10:04)
--- NOTE | 2017-06-14 10:52 | EKG REPORT ---
SEVERITY:- ABNORMAL ECG - ATRIAL FIBRILLATION WITH RAPID V-RATE PROBABLE LVH WITH SECONDARY REPOL ABNRM : Confirmed by: Emmett Troncoso 14-Jun-2017 10:52:06
--- NOTE | 2017-06-14 10:54 | PDOC CONSULTATION ---
Consultation Consult Date: 06/14/17 Attending physician:: KRYSTAL PANG Consult reason:: Acute on chronic respiratory failure History of Present Illness Admission Date/PCP: 06/09/17 09:46 History of Present Illness: SMITH IRAHETA is a 71 year old female with history of COPD who presents with a 2 day history of worsening shortness of breath. Patient was found to have respiratory failure and an acute COPD exacerbation. She does report wheezing. Upon presentation she was found to be in atrial fibrillation with a rapid ventricular rate. She was placed on BiPAP and her respiratory status has improved. She is noted to have CO2 retention.She is maintained at home on the trilogy ventilator.She has been a long-standing patient of [facility] chronic hypoxic hypercapnic respiratory failure but no longer smokes. Past Medical History Cardiac Medical History: Reports: Congestive Heart Failure - Ejection fraction of less than 25%, May 2014., Coronary Artery Disease, Hypertension Denies: DVT, Myocardial Infarction, Hyperlipidema, Pulmonary Embolism Pulmonary Medical History: Reports: Chronic Obstructive Pulmonary Disease (COPD ) - 2L nasal O2 at home, Pneumonia Denies: Asthma Neurological Medical History: Reports: None Denies: Seizures Endocrine Medical History: Denies: Diabetes Mellitus Type 1, Diabetes Mellitus Type 2, Hyperthyroidism, Hypothyroidism Renal/ Medical History: Reports: None Malignancy Medical History: Reports: None GI Medical History: Reports: Gastroesophageal Reflux Disease - Mild, Hiatal Hernia Denies: Cirrhosis, Hepatitis Musculoskeltal Medical History: Reports: Arthritis Skin Medical History: Reports: None Psychiatric Medical History: Reports: Depression Hematology: Reports: Anemia Denies: Sickle Cell Disease Infectious Medical History: Reports: None Past Surgical History Past Surgical History: Reports: Cholecystectomy, Orthopedic Surgery - "back surgery", Other - Last colonoscopy many years ago Denies: Amputation, Hysterectomy, Mastectomy, Pacemaker Social History Information Source: Patient, DrCordelia Doe, [facility] Records Lives with: Family Smoking Status: Former Smoker Passive smoke exposure as: Both Frequency of Alcohol Use: None Hx Recreational Drug Use: No Drugs: None Hx Prescription Drug Abuse: No Do you have pets?: No Have you had any respiratory illnesses as a child?: No Have you been exposed to any sick contacts recently?: No Have you had any recent respiratory illnesses?: No Have you travelled outside of [place] in the past 12 months?: No - Advance Directive Resuscitation Status: Full Code Family History Family History: Reviewed & Not Pertinent, COPD Parental Family History Reviewed: Yes Children Family History Reviewed: Yes Sibling(s) Family History Reviewed.: Yes Medication/Allergy Home Medications: Albuterol Sulfate [Proair HFA] 2 puff IH Q4 PRN 06/09/17 Aspirin [Aspirin EC] 81 mg PO DAILY 06/09/17 Carvedilol [Coreg 3.125 mg Tablet] 3.125 mg PO DAILY 06/09/17 Diltiazem HCl [Diltiazem ER] 180 mg PO Q6AM 06/09/17 Fluticasone Propionate [Flonase Nasal [place] 50 Mcg/[place] 16 gm] 1 spray NAREB Q12 06/09/17 Ipratropium/Albuterol Sulfate [Duoneb 3 ml Ampul] 3 ml NEB RTQ6HP PRN 06/09/17 Montelukast Sodium [Singulair 10 mg Tablet] 10 mg PO QHS 06/09/17 Multivitamin [Tab-A-Christine (Multiple Vitamin) Tablet] 1 tab PO DAILY 06/09/17 Olanzapine [Zyprexa 2.5 Mg Tablet] 2.5 mg PO DAILY 06/09/17 Omeprazole 40 mg PO DAILY 06/09/17 Oxycodone HCl [Oxycodone HCl 10 MG Tablet] 10 mg PO Q6HP PRN 06/09/17 Prednisone [Deltasone 10 mg Tablet] 10 mg PO DAILY 06/09/17 Roflumilast [Daliresp 500 mcg Tablet] 500 mcg PO DAILY 06/09/17 Tolterodine Tartrate [Detrol LA] 2 mg PO DAILY 06/09/17 Allergies/Adverse Reactions: No Known Allergies Allergy (Verified 06/09/17 06:27) Review of Systems All systems: reviewed and no additional remarkable complaints except as stated Physical Exam Vital Signs: Temp Pulse Resp BP Pulse Ox 97.5 F 110 H 16 136/69 H 97 06/14/17 07:34 06/14/17 08:29 06/14/17 08:29 06/14/17 07:34 06/14/17 08:29 Intake & Output 06/13/17 06/14/17 06/15/17 06:59 06:59 06:59 Intake Total 1326 698 Output Total 400 400 Balance 926 298 Weight 58.7 kg 60.2 kg General appearance: PRESENT: no acute distress, cooperative, disheveled, obese, well-developed Head exam: PRESENT: atraumatic, normocephalic Eye exam: PRESENT: conjunctiva pale, EOMI Mouth exam: PRESENT: dry mucosa, neck supple, tongue midline Neck exam: ABSENT: carotid bruit, JVD, lymphadenopathy, thyromegaly Respiratory exam: PRESENT: decreased breath sounds, prolonged expiratory phas, rhonchi, symmetrical, unlabored Cardiovascular exam: PRESENT: irregular rhythm Pulses: PRESENT: normal radial pulses GI/Abdominal exam: PRESENT: normal bowel sounds, soft. ABSENT: distended, guarding, mass, organolmegaly, rebound, tenderness Rectal exam: PRESENT: deferred Musculoskeletal exam: PRESENT: normal inspection Neurological exam: PRESENT: alert, awake Psychiatric exam: PRESENT: normal mood Skin exam: PRESENT: dry, warm Results Laboratory Results: 06/12/17 04:36 06/12/17 20:24 06/09/17 10:20 Blood Blood Culture - Final NO GROWTH IN 5 DAYS 06/09/17 06/12/17 06/12/17 10:20 20:24 20:24 Creatine Kinase < 20 L CK-MB (CK-2) 0.76 Troponin I 0.014 0.013 06/13/17 06/13/17 06/13/17 04:14 04:14 12:32 Creatine Kinase < 20 L < 20 L CK-MB (CK-2) 0.62 Troponin I 0.023 06/13/17 12:32 Creatine Kinase CK-MB (CK-2) 0.55 Troponin I 0.021 Impressions: Chest X-Ray 06/09/17 06:11 IMPRESSION: No acute cardiopulmonary findings. Mild chronic interstitial lung disease. Assessment & Plan - Diagnosis (1) Acute and chronic respiratory failure ([id number]) Qualifiers: Respiratory failure complication: hypercapnia Qualified Code(s): J96.22 - Acute and chronic respiratory failure with hypercapnia Is this a current diagnosis for this admission?: YesPlan: Appears to be significantly improved since initial presentation.Trilogy settings reviewed and adjusted for optimal performance at home as well as in the hospital (2) Acute respiratory acidosis Is this a current diagnosis for this admission?: YesPlan: Improved (3) Atrial fibrillation with rapid ventricular response Is this a current diagnosis for this admission?: YesPlan: RVR stable at this time (4) Chronic systolic (congestive) heart failure Is this a current diagnosis for this admission?: Yes (5) GERD (gastroesophageal reflux disease) Qualifiers: Esophagitis presence: without esophagitis Qualified Code(s): K21.9 - Gastro-esophageal reflux disease without esophagitis Is this a current diagnosis for this admission?: Yes
[2017-06-14] MEDS: PREDNISONE 20 MG TABLET PO SCH (12:56)
[2017-06-14] MEDS ORDERED: CARVEDILOL 3.125 MG TABLET PO SCH (13:10)
--- NOTE | 2017-06-14 13:13 | PDOC PROGRESS REPORT ---
Subjective Progress Note for:: 06/14/17 Subjective:: Denies any chest pain or shortness of breath. Denies PND orthopnea. Breathing is much better. No chills or fever. Denies having diarrhea as well nor any nausea or vomiting or discomfort at this time. Patient's heart rate however remain uncontrolled. Physical Exam Vital Signs: Temp Pulse Resp BP Pulse Ox 98.4 F 110 H 16 102/61 99 06/14/17 11:57 06/14/17 12:21 06/14/17 12:21 06/14/17 11:57 06/14/17 11:57 Intake & Output 06/13/17 06/14/17 06/15/17 06:59 06:59 06:59 Intake Total 1326 698 118 Output Total 400 400 200 Balance 926 298 -82 Weight 58.7 kg 60.2 kg General appearance: PRESENT: no acute distress, cooperative Head exam: PRESENT: normocephalic Eye exam: PRESENT: EOMI Mouth exam: PRESENT: moist, neck supple Neck exam: ABSENT: JVD Respiratory exam: PRESENT: rhonchi - Few bilateral, unlabored. ABSENT: wheezes Cardiovascular exam: PRESENT: irregular rhythm. ABSENT: gallop GI/Abdominal exam: PRESENT: soft. ABSENT: distended, tenderness Extremities exam: PRESENT: other - Trace lower extremity edema Neurological exam: PRESENT: alert, awake, oriented to situation Results Laboratory Results: 06/12/17 04:36 06/12/17 20:24 06/09/17 10:20 Blood Blood Culture - Final NO GROWTH IN 5 DAYS 06/09/17 06/12/17 06/12/17 10:20 20:24 20:24 Creatine Kinase < 20 L CK-MB (CK-2) 0.76 Troponin I 0.014 0.013 06/13/17 06/13/17 06/13/17 04:14 04:14 12:32 Creatine Kinase < 20 L < 20 L CK-MB (CK-2) 0.62 Troponin I 0.023 06/13/17 12:32 Creatine Kinase CK-MB (CK-2) 0.55 Troponin I 0.021 Impressions: Chest X-Ray 06/09/17 06:11 IMPRESSION: No acute cardiopulmonary findings. Mild chronic interstitial lung disease. Assessment & Plan - Diagnosis (1) Acute and chronic respiratory failure ([id number]) Qualifiers: Respiratory failure complication: hypercapnia Qualified Code(s): J96.22 - Acute and chronic respiratory failure with hypercapnia Is this a current diagnosis for this admission?: Yes (2) Atrial fibrillation with rapid ventricular response Is this a current diagnosis for this admission?: Yes (3) COPD exacerbation Is this a current diagnosis for this admission?: Yes (4) Anemia Qualifiers: Anemia type: unspecified type Qualified Code(s): D64.9 - Anemia, unspecified Is this a current diagnosis for this admission?: Yes (5) Chronic systolic (congestive) heart failure Is this a current diagnosis for this admission?: Yes (6) Coronary artery disease Qualifiers: Coronary Disease-Associated Artery/Lesion type: [place] artery [place] vs. transplanted heart: [place] heart Associated angina: without angina Qualified Code(s): I25.10 - Atherosclerotic heart disease of [place] coronary artery without angina pectoris Is this a current diagnosis for this admission?: Yes (7) Depression Qualifiers: Depression Type: unspecified Qualified Code(s): F32.9 - Major depressive disorder, single episode, unspecified Is this a current diagnosis for this admission?: Yes (8) GERD (gastroesophageal reflux disease) Qualifiers: Esophagitis presence: without esophagitis Qualified Code(s): K21.9 - Gastro-esophageal reflux disease without esophagitis Is this a current diagnosis for this admission?: Yes (9) Hypertension Qualifiers: Hypertension type: essential hypertension Qualified Code(s): I10 - Essential (primary) hypertension Is this a current diagnosis for this admission?: Yes - Time Time Spent with patient: 25-34 minutes - Plan Summary Plan Summary: 1 dose of IV Cardizem. Continue current Cardizem dose. Increase Coreg. Consult cardiology for further evaluation and management. We will hold discharge plan for now. Appreciate pulmonary service for assistance and trilogy management.
[2017-06-14] MEDS: OXYCODONE HCL IR 5 MG TABLET PO PRN (20:26)
[2017-06-14] MEDS: MONTELUKAST SODIUM 10 MG TABLET PO SCH (21:47)
[2017-06-15] MEDS: IPRATROPIUM BROMIDE 0.02% NEB 0.5 MG/2.5 ML AMPUL NEB SCH ×3 (04:14→11:53)
[2017-06-15] MEDS: LEVALBUTEROL HCL NEB 1.25 MG/3 ML AMPUL NEB SCH ×2 (04:15→08:32)
[2017-06-15] MEDS: LANSOPRAZOLE 30 MG TAB.RAP.DR PO SCH (05:54)
[2017-06-15] MEDS: TOLTERODINE TARTRATE 1 MG TABLET PO SCH ×2 (09:06→21:11)
[2017-06-15] MEDS: OLANZAPINE 2.5 MG TABLET PO SCH (09:06)
[2017-06-15] MEDS: ASPIRIN 81 MG TABLET, ENT COATED PO SCH (09:06)
[2017-06-15] MEDS: MULTIVITAMIN TABLET PO SCH (09:06)
[2017-06-15] MEDS: FAMOTIDINE 20 MG TABLET PO SCH ×2 (09:06→21:12)
[2017-06-15] MEDS: LEVOFLOXACIN 750 MG TABLET PO SCH (09:06)
[2017-06-15] MEDS: ENOXAPARIN SODIUM INJ 40 MG/0.4 ML DISP.SYRIN SUBCUT SCH (09:06)
[2017-06-15] MEDS: FLUTICASONE NASAL SPRAY 50 MCG/SPRY 120 SPRAY/16 GM NAREB SCH (09:07)
[2017-06-15] MEDS: ROFLUMILAST 500 MCG TABLET PO SCH (09:07)
[2017-06-15] MEDS: DILTIAZEM HCL 180 MG CAPSULE.CR PO SCH (09:07)
[2017-06-15] MEDS ORDERED: CARVEDILOL 6.25 MG TABLET PO SCH (10:00)
--- NOTE | 2017-06-15 11:10 | PDOC PROGRESS REPORT ---
Subjective Progress Note for:: 06/15/17 Subjective:: Patient without complaints slept well last night thinks the food is lousy Physical Exam Vital Signs: Temp Pulse Resp BP Pulse Ox 98.2 F 105 H 14 122/51 L 97 06/15/17 07:58 06/15/17 08:32 06/15/17 08:32 06/15/17 07:58 06/15/17 08:32 Intake & Output 06/14/17 06/15/17 06/16/17 06:59 06:59 06:59 Intake Total 698 400 Output Total 400 200 Balance 298 200 Weight 60.2 kg 60.8 kg General appearance: PRESENT: no acute distress, cooperative, disheveled, well- developed Head exam: PRESENT: atraumatic, normocephalic Eye exam: PRESENT: conjunctiva pale Mouth exam: PRESENT: dry mucosa, neck supple, tongue midline Teeth exam: PRESENT: edentulous Neck exam: ABSENT: carotid bruit, JVD, lymphadenopathy, thyromegaly Respiratory exam: PRESENT: decreased breath sounds, prolonged expiratory phas, rhonchi, symmetrical, unlabored Cardiovascular exam: PRESENT: irregular rhythm Pulses: PRESENT: normal radial pulses GI/Abdominal exam: PRESENT: normal bowel sounds, soft. ABSENT: distended, guarding, mass, organolmegaly, rebound, tenderness Rectal exam: PRESENT: deferred Musculoskeletal exam: PRESENT: normal inspection Neurological exam: PRESENT: alert, awake Skin exam: PRESENT: dry, warm Results Laboratory Results: 06/12/17 04:36 06/12/17 20:24 06/09/17 10:20 Blood Blood Culture - Final NO GROWTH IN 5 DAYS 06/09/17 06/12/17 06/12/17 10:20 20:24 20:24 Creatine Kinase < 20 L CK-MB (CK-2) 0.76 Troponin I 0.014 0.013 06/13/17 06/13/17 06/13/17 04:14 04:14 12:32 Creatine Kinase < 20 L < 20 L CK-MB (CK-2) 0.62 Troponin I 0.023 06/13/17 12:32 Creatine Kinase CK-MB (CK-2) 0.55 Troponin I 0.021 Impressions: Chest X-Ray 06/09/17 06:11 IMPRESSION: No acute cardiopulmonary findings. Mild chronic interstitial lung disease. Assessment & Plan - Diagnosis (1) Acute and chronic respiratory failure ([id number]) Qualifiers: Respiratory failure complication: hypercapnia Qualified Code(s): J96.22 - Acute and chronic respiratory failure with hypercapnia Is this a current diagnosis for this admission?: Yes (2) Acute respiratory acidosis Is this a current diagnosis for this admission?: No (3) Atrial fibrillation with rapid ventricular response Is this a current diagnosis for this admission?: Yes (4) Chronic systolic (congestive) heart failure Is this a current diagnosis for this admission?: Yes (5) GERD (gastroesophageal reflux disease) Qualifiers: Esophagitis presence: without esophagitis Qualified Code(s): K21.9 - Gastro-esophageal reflux disease without esophagitis Is this a current diagnosis for this admission?: Yes
[2017-06-15] MEDS: SPIRONOLACTONE 25 MG TABLET PO SCH (11:43)
[2017-06-15] MEDS: PREDNISONE 20 MG TABLET PO SCH (11:44)
[2017-06-15] MEDS ORDERED: METOPROLOL SUCCINATE 25 MG TAB.SR.24H PO ONE (12:00)
[2017-06-15] MEDS: LEVALBUTEROL HCL NEB 0.63 MG/3 ML AMPUL NEB SCH ×2 (13:51→19:54)
--- NOTE | 2017-06-15 13:51 | XCELERA REPORT ---
[address] [address] Transthoracic Echocardiogram Report Name: SMITH IRAHETA Age: 71 yrs Gender: Female : 1945 Patient Status: Inpatient Patient Location: [id number]\S\320\S\A Study Date: 06/15/2017 10:15 AM Height: 62 in Weight: 134 lb BSA: 1.6 m2 Procedure: A two-dimensional transthoracic echocardiogram with color flow and Doppler was performed. Study Quality: Technically suboptimal. Reason For Study: Cardiomyopathy / PA Fib History: Cardiomyopathy / PA Fib. Ordering Physician: SUSAN YE Performed By: Pao Osorio Interpretation Summary The left ventricle is moderately dilated. LV EF is 35% Doppler measurements suggest pseudonormalized left ventricular relaxation, which is associated with grade II/IV or mild to moderate diastolic dysfunction There is moderate global hypokinesis of the left ventricle. There is no thrombus. The left atrium is moderately dilated. There is no evidence of mitral valve prolapse. There is no mitral valve stenosis. There is a trace amount of mitral regurgitation There is mild aortic stenosis There is a peak gradient of 20 mm of Hg. There is no LVOT obstruction. There is a mild amount of aortic regurgitation There is no tricuspid stenosis. There is a trace amount of tricuspid regurgitation Right ventricular systolic pressure is normal. RVSP is 24 mm of Hg , with RA mean of 5. There is no pericardial effusion. MMode/2D Measurements \T\ Calculations RVDd: 2.0 cm LVIDd: 6.1 cm FS: 11.8 % Ao root diam: 2.6 cm IVSd: 1.0 cm LVIDs: 5.3 cm EDV(Teich): 183.9 ml LVPWd: 0.99 cmESV(Teich): 137.7 mlAo root area: 5.3 cm2 EF(Teich): 25.1 % LVOT diam: 2.0 cm LVOT area: 3.3 cm2 Doppler Measurements \T\ Calculations MV E max carlitos: MV dec slope: Ao V2 max: AI max carlitos: 84.6 cm/sec 466.0 cm/sec2 221.6 cm/sec 359.7 cm/sec MV A max carlitos: MV dec time: Ao max PG: AI max P.6 cm/sec 0.18 sec 19.6 mmHg 51.8 mmHg MV E/A: 0.72 Ao V2 mean: AI dec slope: 140.3 cm/sec 218.2 cm/sec2 Ao mean PG: AI P1/2t: 9.6 mmHg 482.8 msec Ao V2 VTI: 37.4 cm ESTIVEN(I,D): 1.9 cm2 ESTIVEN(V,D): 1.4 cm2 LV V1 max PG: SV(LVOT): 70.6 ml PA V2 max: TR max carlitos: 3.7 mmHg 92.7 cm/sec 213.8 cm/sec LV V1 mean PG: PA max PG: TR max P.7 mmHg 3.4 mmHg 18.3 mmHg LV V1 max: 96.4 cm/sec LV V1 mean: 59.1 cm/sec LV V1 VTI: 21.6 cm Left Ventricle The left ventricle is moderately dilated. There is normal left ventricular wall thickness. LV EF is 35%. Left ventricular systolic function is moderately reduced. Doppler measurements suggest pseudonormalized left ventricular relaxation, which is associated with grade II/IV or mild to moderate diastolic dysfunction. There is moderate global hypokinesis of the left ventricle. There is no thrombus. There is no ventricular septal defect visualized. Right Ventricle The right ventricle is normal in size and function. Atria The right atrium is normal. The left atrium is moderately dilated. The interatrial septum is intact with no evidence for an atrial septal defect. Mitral Valve There is no evidence of mitral valve prolapse. There is no vegetation seen on the mitral valve. There is no mitral valve stenosis. There is a trace amount of mitral regurgitation. Aortic Valve There is no aortic valvular vegetation. There is mild aortic stenosis. There is a peak gradient of 20 mm of Hg. There is no LVOT obstruction. There is a mild amount of aortic regurgitation. Tricuspid Valve There is no tricuspid stenosis. There is a trace amount of tricuspid regurgitation. Right ventricular systolic pressure is normal. RVSP is 24 mm of Hg , with RA mean of 5. Pulmonic Valve There is no pulmonic valvular stenosis. There is no pulmonic valvular regurgitation. Great Vessels The aortic root is normal size. Effusions There is no pericardial effusion. : SUSAN YE > Susan Ye
--- NOTE | 2017-06-15 14:08 | PDOC PROGRESS REPORT ---
Subjective Progress Note for:: 06/15/17 Subjective:: Denies any chest pain or shortness of breath. Continues to feel better. Denies PND orthopnea. Breathing is not getting any worse. No chills or fever. Denies having diarrhea as well nor any nausea or vomiting or discomfort at this time. Patient's heart rate better controlled. Physical Exam Vital Signs: Temp Pulse Resp BP Pulse Ox 98.8 F 91 16 106/45 L 100 06/15/17 11:13 06/15/17 13:51 06/15/17 13:51 06/15/17 11:13 06/15/17 11:13 Intake & Output 06/14/17 06/15/17 06/16/17 06:59 06:59 06:59 Intake Total 698 400 Output Total 400 200 Balance 298 200 Weight 60.2 kg 60.8 kg General appearance: PRESENT: no acute distress, cooperative Head exam: PRESENT: normocephalic Eye exam: PRESENT: EOMI Mouth exam: PRESENT: moist, neck supple Neck exam: ABSENT: JVD Respiratory exam: PRESENT: clear to auscultation jaime. ABSENT: rhonchi, wheezes Cardiovascular exam: PRESENT: irregular rhythm. ABSENT: gallop GI/Abdominal exam: PRESENT: normal bowel sounds, soft. ABSENT: distended, tenderness Extremities exam: ABSENT: pedal edema Neurological exam: PRESENT: alert, awake, oriented to situation Skin exam: PRESENT: dry, warm. ABSENT: cyanosis Results Laboratory Results: 06/12/17 04:36 06/12/17 20:24 06/09/17 10:20 Blood Blood Culture - Final NO GROWTH IN 5 DAYS 06/09/17 06/12/17 06/12/17 10:20 20:24 20:24 Creatine Kinase < 20 L CK-MB (CK-2) 0.76 Troponin I 0.014 0.013 06/13/17 06/13/17 06/13/17 04:14 04:14 12:32 Creatine Kinase < 20 L < 20 L CK-MB (CK-2) 0.62 Troponin I 0.023 06/13/17 12:32 Creatine Kinase CK-MB (CK-2) 0.55 Troponin I 0.021 Impressions: Chest X-Ray 06/09/17 06:11 IMPRESSION: No acute cardiopulmonary findings. Mild chronic interstitial lung disease. Assessment & Plan - Diagnosis (1) Acute and chronic respiratory failure ([id number]) Qualifiers: Respiratory failure complication: hypercapnia Qualified Code(s): J96.22 - Acute and chronic respiratory failure with hypercapnia Is this a current diagnosis for this admission?: Yes (2) Atrial fibrillation with rapid ventricular response Is this a current diagnosis for this admission?: Yes (3) COPD exacerbation Is this a current diagnosis for this admission?: Yes (4) Anemia Qualifiers: Anemia type: unspecified type Qualified Code(s): D64.9 - Anemia, unspecified Is this a current diagnosis for this admission?: Yes (5) Chronic systolic (congestive) heart failure Is this a current diagnosis for this admission?: Yes (6) Coronary artery disease Qualifiers: Coronary Disease-Associated Artery/Lesion type: [place] artery [place] vs. transplanted heart: [place] heart Associated angina: without angina Qualified Code(s): I25.10 - Atherosclerotic heart disease of [place] coronary artery without angina pectoris Is this a current diagnosis for this admission?: Yes (7) Depression Qualifiers: Depression Type: unspecified Qualified Code(s): F32.9 - Major depressive disorder, single episode, unspecified Is this a current diagnosis for this admission?: Yes (8) GERD (gastroesophageal reflux disease) Qualifiers: Esophagitis presence: without esophagitis Qualified Code(s): K21.9 - Gastro-esophageal reflux disease without esophagitis Is this a current diagnosis for this admission?: Yes (9) Hypertension Qualifiers: Hypertension type: essential hypertension Qualified Code(s): I10 - Essential (primary) hypertension Is this a current diagnosis for this admission?: Yes - Time Time Spent with patient: 15-24 minutes - Plan Summary Plan Summary: Patient clinically improving. Coreg switch to metoprolol. Patient on Cardizem. Possible discharge in the morning when cleared by cardiology service. We will decrease the patient's steroid. Her elevated WBC likely secondary to prednisone.
[2017-06-15] MEDS: MONTELUKAST SODIUM 10 MG TABLET PO SCH (21:11)
[2017-06-15] MEDS: METOPROLOL SUCCINATE 25 MG TAB.SR.24H PO SCH (21:12)
[2017-06-15] MEDS: OXYCODONE HCL IR 5 MG TABLET PO PRN (23:29)
--- NOTE | 2017-06-16 00:42 | CONSULTATION REPORT E ---
Consultation Report NAME: SMITH IRAHETA : 1945 AGE: 71Y DATE: 06/15/2017 ROOM: 320 A TO: ELENI YE M.D. FROM: Requesting Physician REASON FOR CONSULTATION: Paroxysmal atrial fibrillation. HISTORY OF PRESENT ILLNESS: The patient's chart was reviewed and tests were reviewed. The patient is a 71-year-old female with a known history of oxygen dependent COPD who was admitted on 06/09/2017 with acute exacerbation of COPD at which time she was also found to be in atrial fibrillation with rapid ventricular response which converted to sinus rhythm. Her respiratory condition was treated with antibiotics and BiPAP, and the patient was ready to go home yesterday, when she developed an episode of paroxysmal atrial fibrillation with 1 IV dose of Cardizem converted to sinus rhythm. The patient has a known history of paroxysmal atrial fibrillation and the patient states that off and on she gets short episodes of palpitations. She has a history of hypertension and coronary artery disease but no recent anginal symptoms although in the past she has had anginal symptoms off and on, which initially were relieved with sublingual nitroglycerin and subsequently the patient was placed on full dose nitrates orally, but the patient now is off it. She denies any PND, orthopnea or leg edema. At present her shortness of breath has improved. She did have some issues and fears about her BiPAP with a pressure of 30, but she was convinced and, as mentioned earlier, she was ready to go home yesterday but was kept back because of the episode of atrial fibrillation. There are no TIA or CVA symptoms. PAST MEDICAL HISTORY: The patient has a history of coronary artery disease but no history of FL. She has anginal symptoms but none recently. She has a history of hypertension. She has a history of COPD and is on home oxygen. She has no history of diabetes mellitus or thyroid disease. She has no history of chronic kidney disease. She has a history of anemia and GERD which is mild and also hiatal hernia. She has no history of thyroid disease. PAST SURGICAL HISTORY: Positive for cholecystectomy, orthopedic surgery, back surgery and colonoscopy. SOCIAL HISTORY: The patient is a former smoke. There is no history of EtOH abuse. ADVANCED DIRECTIVES: The patient is a full code. Her daughter is her surrogate healthcare decision maker. FAMILY HISTORY: Positive for COPD and negative for coronary artery disease as per the patient. ALLERGIES: The patient has no known allergies. MEDICATIONS: 1. Tylenol 650 mg p.o. q.4 h. p.r.n. 2. Aspirin 81 mg p.o. daily. 3. Lovenox 40 mg subcutaneously daily. 4. Pepcid 20 mg p.o. q.12 h. 5. Lansoprazole 30 mg p.o. q. 6 a.m. 6. She was on Xopenex at 1.23 nebulizer treatment q.4 h. and also on albuterol and Atrovent nebulizer treatment q.4 h. 7. She is also on Cardizem CD 180 mg p.o. daily. 8. She is also on Coreg 6.25 mg once a day. 9. She is on Singulair 20 mg p.o. at bedtime. 10. Multivitamins 1 a day. 11. Zyprexa 2.5 mg p.o. daily. 12. Zofran 4 mg p.o. q.4 h. p.r.n. 13. Zofran 4 mg IV q.6 h. p.r.n. 14. Oxycodone 10 mg p.o. q.6 h. p.r.n. 15. Prednisone 40 mg p.o. at noontime. 16. She is on Daliresp 500 mcg p.o. daily. 17. She is on Detrol 1 mg p.o. q.12 h. ADVANCED DIRECTIVES: The patient is a FULL CODE. Her daughter is her surrogate healthcare decision-maker. REVIEW OF SYSTEMS: CONSTITUTIONAL: Denies any fever, chills or rigors. Complains of generalized fatigue and weakness. HEENT: Head: Denies any dizziness, headaches or migraines. There is no history of head injury. Eyes: No history of amblyopia or diplopia. No history of amaurosis fugax. Ears: No history of hearing loss, no history of tinnitus, no history of recurrent ear infections. Nose: No history of nasal polyps. No history of hay fever. No history of nosebleeds. Mouth: No history of altered taste sensation. no history of ulcers in the mouth. There is no bleeding from the gums. Throat: No odynophagia or dysphagia, no history of recurrent sore throats. SKIN: There is no pruritus. There is no yellowish discoloration of the skin. No history of psoriasis. There is no history of skin cancer. NECK: No history of C-spine arthritis. No history of swelling in the neck. No history of goiter. LUNGS: History of COPD on home oxygen. She quit smoking some time ago. There is no history of sleep apnea. No history of pulmonary embolism. She has a history of cough during this acute exacerbation of COPD *------* this admission but the cough was dry. There is no chest pain or pleuritic chest pain. CARDIAC: History of paroxysmal atrial fibrillation. History of hypertension. History of cardiomyopathy. LV ejection fraction in 2014 was 25% and improved in 2015 echo. She has a history of coronary artery disease in the past and used to have angina, no history of FL. The patient has past history of congestive heart failure but none recently. She seems to be compensated. There is no history of leg edema. There is no syncope. GASTROINTESTINAL: History of mild GERD. History of hiatal hernia. No history of jaundice. No history of abdominal pain. No history of GI bleed. RENAL: No history of chronic kidney disease. No history of symptoms of UTI. No hematuria, polyuria or dysuria. ENDOCRINE: No history of diabetes mellitus or thyroid disease. No history of polydipsia or polyuria. No history of heat or cold intolerance. MUSCULOSKELETAL: The patient does have arthritis but no collagen vascular disease. CENTRAL NERVOUS SYSTEM: No history of TIA or CVA. No history of headaches, migraines or seizures. No history of gait imbalance. No history of sleep apnea. PSYCHIATRIC: History of depression present, well controlled on current medications, Zyprexa. There is no history of suicidal and no history of homicidal ideation. VASCULAR: No history of calf or buttock claudication. No history of DVT. HEMATOLOGICAL: Past history of anemia. No history of bleeding diathesis. No history of clotting disorders. Note: At present the patient is in sinus rhythm. PHYSICAL EXAMINATION: GENERAL: Patient is of frail build and looks chronically ill. She is on oxygen. VITAL SIGNS: Her temperature is 98.8 degrees Fahrenheit, pulse is 87 beats per minute, blood pressure is 106/45, respirations are 18, 02 sats are 100% on 4 L nasal cannula. HEENT: Head is atraumatic, normocephalic. Eyes: Pupils are equal, round, regular, reactive to light and accommodation. Extraocular movements are normal. There is no conjunctival pallor. There is no scleral icterus. Ears: Tympanic membranes are intact. External auditory canals are clear. Nose: There is no deviated nasal septum. There is no inflammation of the nasal mucous membranes. Mouth: Mucous membranes of the mouth are moist. Tongue is moist. There are no ulcers. There is no bleeding from the gums. Throat: There is no redness of the oropharynx. There are no exudates. SKIN: There are no skin rashes. There is no petechia or ecchymosis. There are no skin lesions. NECK: Supple. There is no JVD. There is no goiter. Carotids are equal. There is no bruit. There is no lymphadenopathy. Trachea is central. LUNGS: Show diminished air entry, prolonged expiration. There are no rhonchi, rales or wheezing. There is hyperresonance on percussion. HEART: S1 and S2 are heard. There is no S3 gallop. There is no S4 gallop. There is a systolic murmur in the left sternal border and the apex. There is no rub. ABDOMEN: Soft, nontender. There is no hepatosplenomegaly. Bowel sounds are well heard. EXTREMITIES: Femorals are diminished. There are no femoral bruits. Leg pulses are diminished. There is no pedal edema. There is no DVT or cellulitis. There is no calf tenderness. CENTRAL NERVOUS SYSTEM: The patient is conscious, awake, alert, oriented x3 with no focal deficits. PSYCHIATRIC: The patient's judgment and insight are intact. Her affect is normal. DIAGNOSTIC TEST RESULTS: The patient's chest x-ray on admission showed chronic interstitial changes but no acute infiltrates. Her EKG done on 06/09 on admission showed atrial fibrillation with rapid ventricular response and subsequently had sinus tachycardia with multiple atrial premature beats. The patient's EKG on 06/14/2017 shows atrial fibrillation with rapid ventricular response, probable LVH with repolarization changes. The patient's echocardiogram shows the left ventricle is moderately dilated. The left ventricular ejection fraction is 35%. There is moderate global hypokinesis of the left ventricle. There is mild to moderate diastolic dysfunction. There is no evidence of mitral valve prolapse. There is no mitral valve stenosis. There is trace amount of mitral regurgitation. There is mild aortic stenosis with a peak gradient of 20 mmHg. There is a mild amount of aortic regurgitation. There is no tricuspid stenosis. There is trace amount of tricuspid regurgitation. The right ventricular systolic pressure is 24 mmHg. There is no pericardial effusion. Laboratory data have been reviewed and on 06/12 her white count was 13,000, hemoglobin is 10.7, hematocrit is 33.6, and platelet count is 235,000. The patient's cardiac enzymes in the form of CPK-MB and troponin I were negative, the last one done was on 06/13; the first one was done on 06/12. The patient's sodium is 139.9, potassium 4.0, chloride is 95, CO2 is 39, the patient's BUN is 39, creatinine 0.75, GFR is greater than 60, glucose is 179 and calcium is 9.4. This was done on 06/12. IMPRESSION: 1. Paroxysmal atrial fibrillation. 2. COPD, acute exacerbation, resolved. 3. History of [id number]-[id number] respiratory failure, at present seems to be compensated. 4. Chronic systolic female, compensated. 5. Cardiomyopathy with moderately reduced LV ejection fraction. 6. Coronary artery disease, no recent anginal symptoms, no history of FL. 7. History of hypertension, at present well controlled. 8. GERD. 9. Hiatal hernia. 10. Depression. RECOMMENDATIONS: In view of the patient's coronary artery disease would prefer a beta-drew and also an ANDRÉS inhibitor. In view of the patient's COPD, Coreg might not be a good drug and, hence, would start the patient on Toprol XL. Would stop the patient's Cardizem, add spironolactone to the patient. Once the blood pressure comes up off Cardizem, will try to institute a small dose of ANDRÉS inhibitor and also see if room for nitrates topically orally. Also would continue the patient's Toprol XL 25 mg p.o. q.12 h. The patient is a patient of mine. I have not seen her in a year or so, but she wants to follow up with me and we will follow up with her. We will watch the patient and if everything is okay, we will discharge the patient home tomorrow. Note that the patient was seen at 12 noon. Forty minutes spent on this patient with more than 50% of the time spent on direct patient care. Medications were reviewed and adjusted. Discussed the case with other caregiving providers on the case. Will follow up the patient. Thanking you. DICTATING PHYSICIAN: ELENI YE M.D. [id number] PHY#: [id number] ID: [id number] JOB#: [id number] ACCT: [id number] cc:ELENI YE M.D. >
[2017-06-16] MEDS: LEVALBUTEROL HCL NEB 0.63 MG/3 ML AMPUL NEB SCH ×3 (02:31→14:06)
[2017-06-16] MEDS: LANSOPRAZOLE 30 MG TAB.RAP.DR PO SCH (07:59)
[2017-06-16] MEDS: OLANZAPINE 2.5 MG TABLET PO SCH (10:40)
[2017-06-16] MEDS: METOPROLOL SUCCINATE 25 MG TAB.SR.24H PO SCH (10:41)
[2017-06-16] MEDS: TOLTERODINE TARTRATE 1 MG TABLET PO SCH (10:42)
[2017-06-16] MEDS: FAMOTIDINE 20 MG TABLET PO SCH (10:42)
[2017-06-16] MEDS: ROFLUMILAST 500 MCG TABLET PO SCH (10:42)
[2017-06-16] MEDS: LEVOFLOXACIN 750 MG TABLET PO SCH (10:43)
[2017-06-16] MEDS: MULTIVITAMIN TABLET PO SCH (10:43)
[2017-06-16] MEDS: ASPIRIN 81 MG TABLET, ENT COATED PO SCH (10:43)
[2017-06-16] MEDS: ENOXAPARIN SODIUM INJ 40 MG/0.4 ML DISP.SYRIN SUBCUT SCH (10:47)
[2017-06-16] MEDS: OXYCODONE HCL IR 5 MG TABLET PO PRN (10:56)
[2017-06-16] MEDS: SPIRONOLACTONE 25 MG TABLET PO SCH (11:00)
[2017-06-16] MEDS ORDERED: LISINOPRIL 5 MG TABLET PO SCH (11:00)
[2017-06-16] MEDS ORDERED: PREDNISONE 20 MG TABLET PO SCH (12:00)
--- NOTE | 2017-06-16 12:12 | PDOC DISCHARGE SUMMARY ---
General - Admit/Disc Date/PCP Admission Date/Primary Care Provider: 06/09/17 09:46 Discharge Date: 06/16/17 - Discharge Diagnosis (1) Acute and chronic respiratory failure ([id number]) Is this a current diagnosis for this admission?: Yes (2) Atrial fibrillation with rapid ventricular response Is this a current diagnosis for this admission?: Yes (3) COPD exacerbation Is this a current diagnosis for this admission?: Yes (4) Anemia Is this a current diagnosis for this admission?: Yes (5) Chronic systolic (congestive) heart failure Is this a current diagnosis for this admission?: Yes (6) Coronary artery disease Is this a current diagnosis for this admission?: Yes (7) Depression Is this a current diagnosis for this admission?: Yes (8) GERD (gastroesophageal reflux disease) Is this a current diagnosis for this admission?: Yes (9) Hypertension Is this a current diagnosis for this admission?: Yes - Additional Information Resuscitation Status: Full Code Discharge Diet: Cardiac Discharge Activity: Activity As Tolerated, Balance Activity w/Rest, Slowly Increase Activity Home Medications: Albuterol Sulfate [Proair HFA] 2 puff IH Q4 PRN 06/09/17 Aspirin [Aspirin EC] 81 mg PO DAILY 06/09/17 Fluticasone Propionate [Flonase Nasal [place] 50 Mcg/[place] 16 gm] 1 spray NAREB Q12 06/09/17 Montelukast Sodium [Singulair 10 mg Tablet] 10 mg PO QHS 06/09/17 Multivitamin [Tab-A-Christine (Multiple Vitamin) Tablet] 1 tab PO DAILY 06/09/17 Olanzapine [Zyprexa 2.5 mg Tablet] 2.5 mg PO DAILY 06/09/17 Omeprazole 40 mg PO DAILY 06/09/17 Oxycodone HCl [Oxycodone HCl 10 MG Tablet] 10 mg PO Q6HP PRN 06/09/17 Prednisone [Deltasone 10 mg Tablet] 10 mg PO DAILY 06/09/17 Roflumilast [Daliresp 500 mcg Tablet] 500 mcg PO DAILY 06/09/17 Tolterodine Tartrate [Detrol LA] 2 mg PO DAILY 06/09/17 Levalbuterol HCl [Xopenex Neb 0.63 mg/3 ml Ampul] 0.63 mg NEB RTQ6 #120 vial.neb 06/16/17 Lisinopril [Prinivil 5 mg Tablet] 5 mg PO DAILY@1100 #30 tablet 06/16/17 Metoprolol Succinate [Toprol Xl 25 mg Tab.sr] 25 mg PO Q12 #60 tab.sr.24h Spironolactone [Aldactone 25 mg Tablet] 25 mg PO DAILY@1200 #30 tablet 06/16/17 Tiotropium [place] [Spiriva [place]haler 5 Cap/Kit (18 Mcg/Cap)] 1 cap IH DAILY # 6 capsule 06/16/17 Additional Information: Trilogy BIPAP / Home O2 at 2LNC History of Present Illness Patient complains of: Shortness of breath History of Present Illness: SMITH IRAHETA is a 71 year old female with history of COPD who presents with a 2 day history of worsening shortness of breath. Patient was found to have respiratory failure and an acute COPD exacerbation. Reports that she had a nonproductive cough. She denies any chest pain. Denies any orthopnea or PND. She does report wheezing. She denies any chest pain. Denies any fevers or chills. When she presented she was found to be in atrial fibrillation with a rapid ventricular rate. She was placed on BiPAP and her respiratory status has improved. She is noted to have CO2 retention but is able to answer questions and has no obvious encephalopathy. For details, please refer to H&P performed by the admitting physician. Hospital Course Hospital Course: The patient was admitted to [facility]. Patient was started on antibiotics and intravenous steroids and sfhagr-vbu-imgde nebulizers. Cardizem drip was started as well. Eventually the patient's shortness of breath as well as tachycardia improved. Patient was able to be transitioned to oral Cardizem. Steroids was likewise to incision to oral. Patient was begun on physical therapy. Chest x-ray did not reveal any acute infiltrate. Blood culture showed staph epidermidis and likely a contamination. Patient was maintained on Levaquin orally and completed antibiotic treatment. Course however was complicated by uncontrolled atrial fibrillation cardiology was consulted where a 2D echocardiogram revealed an ejection fraction of about 35%. Cardiology discontinued Cardizem and place the patient on metoprolol. Likewise she was placed on low-dose ANDRÉS inhibitor and spironolactone for the low ejection fraction. Subsequently the patient's heart rate got controlled. Cardiac enzymes were negative. The rest of the hospital stays unremarkable. network planner was consulted for home health and patient was eventually discharged home improved. Physical Exam Vital Signs: Temp Pulse Resp BP Pulse Ox 97.5 F 84 14 143/72 H 100 06/16/17 07:46 06/16/17 08:16 06/16/17 08:16 06/16/17 07:46 06/16/17 08:16 Intake & Output 06/15/17 06/16/17 06/17/17 06:59 06:59 06:59 Intake Total 400 669 Output Total 200 2000 Balance 200 -1331 Weight 60.8 kg 60.2 kg General appearance: PRESENT: no acute distress, cooperative Head exam: PRESENT: normocephalic Eye exam: PRESENT: EOMI Mouth exam: PRESENT: moist, neck supple Neck exam: ABSENT: JVD Respiratory exam: PRESENT: clear to auscultation jaime. ABSENT: rhonchi, wheezes Cardiovascular exam: PRESENT: RRR. ABSENT: gallop GI/Abdominal exam: PRESENT: normal bowel sounds, soft. ABSENT: distended, tenderness Extremities exam: ABSENT: pedal edema Neurological exam: PRESENT: alert, awake, oriented to person, oriented to place , oriented to time, oriented to situation Skin exam: PRESENT: dry, warm. ABSENT: cyanosis Results Laboratory Results: 06/12/17 04:36 06/12/17 20:24 06/09/17 06/12/17 06/12/17 10:20 20:24 20:24 Creatine Kinase < 20 L CK-MB (CK-2) 0.76 Troponin I 0.014 0.013 06/13/17 06/13/17 06/13/17 04:14 04:14 12:32 Creatine Kinase < 20 L < 20 L CK-MB (CK-2) 0.62 Troponin I 0.023 06/13/17 12:32 Creatine Kinase CK-MB (CK-2) 0.55 Troponin I 0.021 Impressions: Chest X-Ray 06/09/17 06:11 IMPRESSION: No acute cardiopulmonary findings. Mild chronic interstitial lung disease. Qualifiers PATEINT BEING DISCHARGED WITH ANY OF THE FOLLOWING DIAGNOSIS?: No Plan Discharge Plan: Follow-up with primary care physician in 1 week. Follow-up with Dr. Burkett in 2 weeks. Time Spent: Less than 30 Minutes
--- NOTE | 2017-06-16 12:58 | EKG REPORT ---
SEVERITY:- ABNORMAL ECG - SINUS RHYTHM MULTIFORM VENTRICULAR PREMATURE COMPLEXES ANTERIOR INFARCT, AGE INDETERMINATE : Confirmed by: Emmett Troncoso 16-Jun-2017 12:57:40
[2017-06-16 13:04] VITALS: BP 130/61
--- NOTE | 2017-06-16 22:22 | PROGRESS NOTE E ---
Progress Note NAME: SMITH IRAHETA : 1945 AGE: 71Y DATE: 06/16/2017 ROOM: 320 SUBJECTIVE: The patient states that she has no increase in her shortness of breath. She is fairly stable. Back to her baseline. We did evaluate her COPD status. She denies any chest pain or discomfort. There is no PND or orthopnea. There is no leg edema. There is no recurrence of her atrial fibrillation. There is no ventricular arrhythmia seen on the monitor. There is no *------* arrhythmia seen on the monitor. There are no TIA or CVA symptoms. OBJECTIVE: GENERAL: On examination, the patient is of frail build and looks chronically ill. She is on oxygen. VITAL SIGNS: She is afebrile with a temperature of 97.5 degrees Fahrenheit, pulse is 84 beats per minute, blood pressure is 114/52, respirations are 14 per minute, 02 sats are 100% on 2 L nasal cannula. HEENT: Head is atraumatic, normocephalic. Eyes: Pupils are equal, round, regular, reactive to light and accommodation. Extraocular movements are normal. There is no conjunctival pallor. There is no scleral icterus. ENT is negative. NECK: Supple. There is no JVD. Carotids are equal. There is no bruit. There is no goiter. There is no lymphadenopathy. LUNGS: Show diminished air entry, prolonged expiration. There are no rhonchi, rales or wheezing. On percussion there is hyperresonance. HEART: S1 and S2 are heard. There is no S3 gallop. There is no S4 gallop. There is a systolic murmur in the left sternal border and the apex. There is no rub. ABDOMEN: Soft, nontender. There is no hepatosplenomegaly. Bowel sounds are well heard. There are no tender areas or masses. EXTREMITIES: Femorals are diminished. There are no femoral bruits. Leg pulses are diminished. There is no pedal edema. There is no DVT or cellulitis. There is no calf tenderness. CENTRAL NERVOUS SYSTEM: The patient is conscious, awake, alert, oriented x3 with no focal deficits. PSYCHIATRIC: The patient's judgment and insight are intact. Her affect is normal. IMPRESSION: 1. Paroxysmal atrial fibrillation, remains in sinus rhythm.. 2. COPD, acute exacerbation, resolved. Patient back to baseline. Feels comfortable on nasal oxygen 2 L per minute. 3. History of [id number] respiratory failure, at present seems to be compensated. 4. Chronic systolic heart failure, compensated. 5. Cardiomyopathy with moderately reduced LV ejection fraction. 6. Coronary artery disease, no recent anginal symptoms, no history of OR. 7. History of hypertension, at present well controlled. 8. GERD. 9. Hiatal hernia. 10. Depression. RECOMMENDATIONS: The patient is tolerating the beta drew well. Will add a dose of lisinopril 5 mg. Continue other medications including aspirin. The patient is stable. Can be discharged home. The patient is a patient of my office. She will see me or my partner in 2 weeks. Later I came up and spoke to the daughter when she came to take her mother home and after discussing in detail the reason that I took the patient off Cardizem since it *------* for a patient with LV dysfunction and coronary artery disease to be on Cardizem and the best accepted regimen is Protonix or Coreg and ANDRÉS inhibitor. The patient already is on spironolactone. Note in view of the patient's COPD, would place the patient on Toprol XL rather than Coreg. The patient's daughter verbalizes understanding. I have given her my cell number to call me if there are any problems with the patient. Note 30 minutes spent on the patient with more than 50% of the time spent on direct patient care. In view of the multiple medical problems, it is moderately complex medical decision making involved in the case. Will sign off the case and follow the patient as outpatient. DICTATING PHYSICIAN: ELENI YE M.D. [id number] [id number] EBER#: [id number] ID: [id number] JOB#: [id number] ACCT: [id number] cc: >
== END 2017-06-16 18:23 | disposition home or self-care (01) | DRG 189 ==
LOC: ER 05:43 → UNDOADMIN 08:34 → EH 08:34 → 3W 11:31
PROVIDERS: ADMIT Internal Medicine; ATTEND Internal Medicine
PROC: 5A09357 Assistance with Respiratory Ventilation, Less than 24 Consecutive Hours, Continuous Positive Airway Pressure (ICD-10-PCS; principal; 2017-06-09)
DX: J96.22 Acute and chronic respiratory failure with hypercapnia (principal); J44.1 Chronic obstructive pulmonary disease with (acute) exacerbation; I50.22 Chronic systolic (congestive) heart failure; I42.9 Cardiomyopathy, unspecified; I48.0 Paroxysmal atrial fibrillation; D64.9 Anemia, unspecified; K21.9 Gastro-esophageal reflux disease without esophagitis; I10 Essential (primary) hypertension; I25.10 Atherosclerotic heart disease of native coronary artery without angina pectoris; F32.9 Major depressive disorder, single episode, unspecified; Z79.899 Other long term (current) drug therapy; Z79.82 Long term (current) use of aspirin; Z90.49 Acquired absence of other specified parts of digestive tract; K44.9 Diaphragmatic hernia without obstruction or gangrene; Z87.891 Personal history of nicotine dependence
CPT/HCPCS: 36415; 36600; 71010; 80048; 80053; 82550; 82553; 82803; 83690; 83735; 84484; 85025; 85027; 87040; 87077; 87186; 93005; 93010; 93306; 94640; 94660; 96365; 96375; 99291; G8978-GP; G8979-GP; J1650; J1956; J2920; J3475; J3490; J7040; J7512; J7614; J7620

== ENCOUNTER → 2018-02-05 | Outpatient (CLI) | payer MEDICARE, OTHER ==
[2018-02-05 11:16] LABS: ALANINE AMINOTRANSFERASE 24 U/L (9-52); ASPARTATE AMINO TRANSFERASE 15 U/L (14-36); BLOOD UREA NITROGEN 17 mg/dL (7-20); CHLORIDE 90 mmol/L (98-107); CHOLESTEROL 144.94 mg/dL (0-200); GLUCOSE 102 mg/dL (75-110); POTASSIUM 5.1 mmol/L (3.6-5.0); TRIGLYCERIDES 87 mg/dL (<150)
[2018-02-05 11:26] LABS: DIRECT LDL 37 mg/dL (<100)
[2018-02-05 11:35] LABS: ANION GAP 6 (5-19)
[2018-02-05 11:40] LABS: CARBON DIOXIDE 45 mmol/L (22-30)
[2018-02-06 11:39] LABS: CREATININE URINE 49.1 mg/dL (Not Estab.); MICROALBUMIN URINE 11.5 ug/mL (Not Estab.)
== END ==
LOC: OD 09:52
PROVIDERS: ATTEND Family Medicine Geriatric Medicine
DX: E11.9 Type 2 diabetes mellitus without complications (principal); I10 Essential (primary) hypertension; E78.5 Hyperlipidemia, unspecified; Z79.899 Other long term (current) drug therapy
CPT/HCPCS: 36415; 80048; 80061; 82043; 82570; 83036; 84450; 84460

== ENCOUNTER 2018-06-12 17:54 | Inpatient (IN) | payer MEDICARE, OTHER ==
[2018-06-12] MEDS ORDERED: ASPIRIN 81 MG TABLET, CHEWABLE PO ONE (18:29)
--- NOTE | 2018-06-12 18:54 | RADIOLOGY REPORT (SQ) ---
EXAM DESCRIPTION: CHEST SINGLE VIEW COMPLETED DATE/TIME: 06/12/2018 6:45 pm REASON FOR STUDY: sob COMPARISON: 06/09/2017. EXAM PARAMETERS: NUMBER OF VIEWS: One view. TECHNIQUE: Single frontal radiographic view of the chest acquired. RADIATION DOSE: NA LIMITATIONS: None. FINDINGS: LUNGS AND PLEURA: No opacities, masses or pneumothorax. No pleural effusion. MEDIASTINUM AND HILAR STRUCTURES: No masses. Contour normal. HEART AND VASCULAR STRUCTURES: Heart normal in size. Normal vasculature. BONES: No acute findings. HARDWARE: Clips in the upper abdomen. OTHER: No other significant finding. IMPRESSION: NO ACUTE RADIOGRAPHIC FINDING IN THE CHEST. TECHNICAL DOCUMENTATION: JOB ID: [id number] [employer]- All Rights Reserved Reading location - IP/workstation name: [email or web address]
[2018-06-12 19:11] LABS: ABSOLUTE EOSINOPHILS # (AUTO) 0.3 10^3/uL (0.0-0.6); ABSOLUTE LYMPHOCYTES (AUTO) 1.8 10^3/uL (0.5-4.7); ABSOLUTE MONOCYTES (AUTO) 0.9 10^3/uL (0.1-1.4); ABSOLUTE NEUT (AUTO) 10.2 10^3/uL (1.7-8.2); EOSINOPHILS % (AUTO) 2.3 % (0-6); HEMATOCRIT 34.2 % (36.0-47.0); HEMOGLOBIN 10.6 g/dL (12.0-15.5); LYMPHOCYTES % (AUTO) 13.5 % (13-45); MEAN CORPUSCULAR VOLUME 87 fl (80-97); MONOCYTES % (AUTO) 7.1 % (3-13); PLATELET COUNT 355 10^3/uL (150-450); RED BLOOD COUNT 3.93 10^6/uL (3.72-5.28); RED CELL DISTRIBUTION WIDTH 15.8 % (11.5-14.0); SEGMENTED NEUTROPHILS % (AUTO) 77.1 % (42-78); TOTAL CELLS COUNTED % (AUTO) 100 %; WHITE BLOOD COUNT 13.2 10^3/uL (4.0-10.5)
[2018-06-12 19:28] LABS: ALANINE AMINOTRANSFERASE 17 U/L (9-52); ALBUMIN 3.1 g/dL (3.5-5.0); ALKALINE PHOSPHATASE 66 U/L (38-126); ASPARTATE AMINO TRANSFERASE 15 U/L (14-36); BILIRUBIN,DIRECT 0.2 mg/dL (0.0-0.4); BILIRUBIN,TOTAL 0.2 mg/dL (0.2-1.3); BLOOD UREA NITROGEN 11 mg/dL (7-20); CALCIUM 9.1 mg/dL (8.4-10.2); CHLORIDE 90 mmol/L (98-107); CREATINE KINASE 24 U/L (30-135); GLUCOSE 193 mg/dL (75-110); SODIUM 141.5 mmol/L (137-145); TOTAL PROTEIN 5.9 g/dL (6.3-8.2)
[2018-06-12 19:52] LABS: CREATINE KINASE MB 0.63 ng/mL (<4.55)
[2018-06-12 19:53] LABS: TROPONIN I < 0.012 ng/mL
[2018-06-12 19:55] LABS: ANION GAP 10 (5-19)
[2018-06-12 20:01] LABS: CARBON DIOXIDE 42 mmol/L (22-30)
[2018-06-12 20:23] LABS: ARTERIAL BLOOD BASE EXCESS 17.3 mmol/L; ARTERIAL BLOOD FIO2 3L; ARTERIAL BLOOD HCO3 46.7 mmol/L (20-26); ARTERIAL BLOOD O2 SATURATION 88.7 % (94-98); ARTERIAL BLOOD PH 7.34 (7.35-7.45); ARTERIAL BLOOD PO2 62.3 mmHg (80-100); ARTERIAL BLOOD TOTAL CO2 49.5 mmol/L (21-25)
[2018-06-12 20:26] LABS: ARTERIAL BLOOD PCO2 89.6 mmHg (35-45)
[2018-06-12] MEDS ORDERED: DOXYCYCLINE HYCLATE INJ 100 MG VIAL IV ONE (21:01)
[2018-06-12] MEDS ORDERED: METHYLPREDNISOLONE INJ 125 MG/2 ML SDV IV ONE (21:01)
--- NOTE | 2018-06-12 22:34 | EKG REPORT ---
SEVERITY:- ABNORMAL ECG - WANDERING PACEMAKER (MFAT) VENTRICULAR PREMATURE COMPLEX PROBABLE LEFT ATRIAL ABNORMALITY CONSIDER ANTERIOR INFARCT : Confirmed by: Susan Ho MD 12-Jun-2018 22:33:06
[2018-06-12] MEDS ORDERED: ACETAMINOPHEN 325 MG TABLET PO PRN (23:21)
[2018-06-12] MEDS ORDERED: IPRATROPIUM/ALBUTEROL 0.5-2.5 MG/3 ML AMPUL NEB PRN (23:21)
[2018-06-12] MEDS ORDERED: MAG HYDROX/AL HYDROX/SIMETH SUSP 30 ML UDCUP PO PRN (23:33)
[2018-06-12] MEDS ORDERED: ONDANSETRON HCL INJ/PF 4 MG/2 ML SDV IV PRN (23:33)
[2018-06-12] MEDS ORDERED: MAGNESIUM HYDROXIDE SUSP 30 ML UDCUP PO PRN (23:33)
--- NOTE | 2018-06-12 23:38 | ER Document Report ---
ED General - General Chief Complaint: Breathing Difficulty Stated Complaint: DIFFICULTY BREATHING Time Seen by Provider: 06/12/18 18:13 TRAVEL OUTSIDE OF THE [place] IN LAST 30 DAYS: No - HPI Patient complains to provider of: Difficulty breathing Notes: Patient with history of COPD coming in today for difficulty breathing productive cough green sputum and some slight confusion. Patient was visited by home health care agent today that had access to end-tidal CO2 and they measured the patient's entire CO2 was reading greater than 70 EMS was called found patient to be tachypneic and wheezing with rhonchi throughout his given multiple breathing treatments and transported to the ER for further evaluation. Patient uses chronic home O2 3.5 L at home. Patient upon my evaluation is currently on her oxygenation 3.5 with a SPO2 of 91. Patient states that she is feeling better however does admit that she does states that she has some episodes of confusion. Patient denies any recent antibiotics states PCP is Dr. Alice mahoney aircraft maintenance technician is Dr. Brewer. Denies any chest pain abdominal pain fevers chills nausea vomiting diarrhea - Related Data Allergies/Adverse Reactions: No Known Allergies Allergy (Verified 06/12/18 18:15) Past Medical History - Social History Smoking Status: Former Smoker Chew tobacco use (# tins/day): No Frequency of alcohol use: None Drug Abuse: None Family History: Reviewed & Not Pertinent, COPD Patient has suicidal ideation: No Patient has homicidal ideation: No - Past Medical History Cardiac Medical History: Reports: Hx Congestive Heart Failure - Ejection fraction of less than 25%, May 2014., Hx Coronary Artery Disease, Hx Hypertension Denies: Hx DVT, Hx Heart Attack, Hx Hypercholesterolemia, Hx Pulmonary Embolism Pulmonary Medical History: Reports: Hx COPD - 3L nasal O2 at home, Hx Pneumonia Denies: Hx Asthma Neurological Medical History: Denies: Hx Cerebrovascular Accident, Hx Seizures Endocrine Medical History: Denies: Hx Diabetes Mellitus Type 1, Hx Diabetes Mellitus Type 2, Hx Hyperthyroidism, Hx Hypothyroidism Renal/ Medical History: Denies: Hx Peritoneal Dialysis GI Medical History: Reports: Hx Gastroesophageal Reflux Disease - Mild, Hx Hiatal Hernia. Denies: Hx Cirrhosis, Hx Hepatitis, Hx Ulcer Musculoskeletal Medical History: Reports Hx Arthritis Psychiatric Medical History: Reports: Hx Depression Infectious Medical History: Denies: Hx Hepatitis Past Surgical History: Reports: Hx Cholecystectomy, Hx Orthopedic Surgery - "back surgery", Other - Last colonoscopy many years ago. Denies: Hx Hysterectomy, Hx Mastectomy, Hx Open Heart Surgery, Hx Pacemaker - Immunizations Hx Diphtheria, Pertussis, Tetanus Vaccination: Yes Hx Pneumococcal Vaccination: 08/06/13 Review of Systems - Review of Systems Constitutional: No symptoms reported EENT: No symptoms reported Cardiovascular: No symptoms reported Respiratory: Short of breath Gastrointestinal: No symptoms reported Genitourinary: No symptoms reported Female Genitourinary: No symptoms reported Musculoskeletal: No symptoms reported Skin: No symptoms reported Hematologic/Lymphatic: No symptoms reported Neurological/Psychological: No symptoms reported -: Yes All other systems reviewed and negative Physical Exam - Vital signs Vitals: Temp Resp BP Pulse Ox 99.9 F 30 H 122/60 92 06/12/18 18:13 06/12/18 18:13 06/12/18 18:13 06/12/18 18:13 Interpretation: Tachycardic - General General appearance: Appears well, Alert - HEENT Head: Normocephalic, Atraumatic Eyes: Normal Pupils: PERRL - Respiratory Respiratory status: No respiratory distress Chest status: Nontender Breath sounds: Rhonchi, Wheezing Chest palpation: Normal - Cardiovascular Rhythm: Regular, Tachycardia Heart sounds: Normal auscultation Murmur: No - Abdominal Inspection: Normal Distension: No distension Bowel sounds: Normal Tenderness: Nontender Organomegaly: No organomegaly - Back Back: Normal, Nontender - Extremities General upper extremity: Normal inspection, Nontender, Normal color, Normal ROM , Normal temperature General lower extremity: Normal inspection, Nontender, Normal color, Normal ROM , Normal temperature, Normal weight bearing. No: Shaylee's sign - Neurological Neuro grossly intact: Yes Cognition: Normal Orientation: AAOx4 [place] Coma Scale Eye Opening: Spontaneous [place] Coma Scale Verbal: Oriented [place] Coma Scale Motor: Obeys Commands [place] Coma Scale Total: 15 Speech: Normal Motor strength normal: LUE, RUE, LLE, RLE Sensory: Normal - Psychological Associated symptoms: Normal affect, Normal mood - Skin Skin Temperature: Warm Skin Moisture: Dry Skin Color: Normal Course - Re-evaluation Re-evalutation: 06/12/18 23:33 Patient ABG shows hypercapnia with slight acidosis upon evaluation patient does have some now slight confusion stating she has been here for approximately 3 days. Was able to easily redirect the patient. Because of the patient's confusion and ABG findings patient was placed on BiPAP. Because of the productive sputum this start patient on doxycycline. Patient's course was discussed with hospitalist will admit the patient for further evaluation. - Vital Signs Vital signs: Temp Pulse Resp BP Pulse Ox 99.9 F 30 H 102/47 L 93 06/12/18 18:13 06/12/18 21:30 06/12/18 21:00 06/12/18 21:30 - Laboratory Result Diagrams: 06/12/18 18:38 06/12/18 18:38 Laboratory results interpreted by me: 06/12/18 06/12/18 06/12/18 18:38 18:38 18:38 WBC 13.2 H Hgb 10.6 L Hct 34.2 L MCHC 31.0 L RDW 15.8 H Absolute Neutrophils 10.2 H Carbonic Acid 2.70 H ABG pH 7.34 L ABG pCO2 89.6 H* ABG pO2 62.3 L ABG HCO3 46.7 H ABG Total CO2 49.5 H ABG O2 Saturation 88.7 L Chloride 90 L Carbon Dioxide 42 H* Glucose 193 H Creatine Kinase 24 L Total Protein 5.9 L Albumin 3.1 L Discharge - Discharge Clinical Impression: Acute and chronic respiratory failure ([id number]) Qualifiers: Respiratory failure complication: hypoxia and hypercapnia Qualified Code(s): J96.21 - Acute and chronic respiratory failure with hypoxia; J96.22 - Acute and chronic respiratory failure with hypercapnia; J96.22 - Acute and chronic respiratory failure with hypercapnia; J96.22 - Acute and chronic respiratory failure with hypercapnia Condition: Good Disposition: ADMITTED INPATIENT Admitting Provider: [facility] Unit Admitted: IMCU Referrals: VIRGINIA ZUNIGA MD [Primary Care Provider] - Follow up as needed
[2018-06-12] MEDS ORDERED: AZITHROMYCIN INJ 500 MG VIAL IV ONE (23:40)
--- NOTE | 2018-06-13 02:01 | PDOC H&P ---
History of Present Illness Admission Date/PCP: 06/12/18 23:41 VIRGINIA ZUNIGA MD Patient complains of: Cough, shortness of breath and wheezing History of Present Illness: SMITH IRAHETA is a 72 year old female with history of multiple medical problems that will be mentioned below including chronic respiratory failure on home O2 and BiPAP at night who has been noncompliant with her BiPAP for the last few nights. She presented to the emergency room with acute onset of worsening dyspnea with associated cough productive of greenish sputum as well as wheezing which have been going on over the last 4 days. She denies any fever or chills however has been feeling cold. No chest pain or palpitations. No nausea or vomiting or abdominal pain. No hemoptysis. Upon presentation to the emergency room her BP was 122/60 with a respiratory rate of 30, temperature of 99.9, pulse of 108 and pulse oximetry of 92% initially on room air and later on 88% then 91-93% on 30% FiO2 on BiPAP that was placed given her respiratory distress and an ABG showing respiratory acidosis with a pH of 7.34, PCO2 of 89.6, PO2 of 62.3, HCO3 of 46.7 and O2 sat of 88.7 on 3 L FiO2. Her labs revealed leukocytosis with neutrophilia as well as anemia and her CMP was remarkable for low chloride of 90 and elevated CO2 of 42. Blood glucose was 193, total protein was 5.9 and albumin 3.1. She had 2 negative sets of troponin so far less than 0.0 12. Her EKG showed suspected Marlena pacemaker versus sinus arrhythmia with PVCs. Her chest x-ray showed no evidence for pneumonia or CHF. The patient was given IV doxycycline 100 mg as well as 4 baby aspirin, IV Rocephin and IV Solu-Medrol. She was initially slightly somnolent during the interview she was alert and adequately responding to questions with improvement on BiPAP. She will therefore be admitted to an CU bed for further evaluation and management. Past Medical History Past Medical History: Chronic respiratory failure on home O2 and BiPAP compliance to BiPAP Cardiac Medical History: Reports: Congestive Heart Failure - Ejection fraction of less than 25%, May 2014., Coronary Artery Disease, Hypertension Denies: DVT, Myocardial Infarction, Hyperlipidema, Pulmonary Embolism Pulmonary Medical History: Reports: Chronic Obstructive Pulmonary Disease (COPD ) - 3L nasal O2 at home, Pneumonia Denies: Asthma Neurological Medical History: Denies: Seizures Endocrine Medical History: Denies: Diabetes Mellitus Type 1, Diabetes Mellitus Type 2, Hyperthyroidism, Hypothyroidism GI Medical History: Reports: Gastroesophageal Reflux Disease - Mild, Hiatal Hernia Denies: Cirrhosis, Hepatitis Musculoskeltal Medical History: Reports: Arthritis Psychiatric Medical History: Reports: Depression Hematology: Reports: Anemia Denies: Sickle Cell Disease Past Surgical History Past Surgical History: Reports: Cholecystectomy, Orthopedic Surgery - "back surgery", Other - Last colonoscopy many years ago Denies: Amputation, Hysterectomy, Mastectomy, Pacemaker Social History Smoking Status: Former Smoker Frequency of Alcohol Use: None Hx Recreational Drug Use: No Drugs: None Hx Prescription Drug Abuse: No Family History Family History: CVA, Malignancy Parental Family History Reviewed: Yes Children Family History Reviewed: Yes Sibling(s) Family History Reviewed.: Yes Medication/Allergy Home Medications: Albuterol Sulfate [Proair HFA] 2 puff IH Q4 PRN 06/09/17 Aspirin [Aspirin EC] 81 mg PO DAILY 06/09/17 Fluticasone Propionate [Flonase Nasal [place] 50 Mcg/[place] 16 gm] 1 spray NAREB Q12 06/09/17 Montelukast Sodium [Singulair 10 mg Tablet] 10 mg PO QHS 06/09/17 Multivitamin [Tab-A-Christine (Multiple Vitamin) Tablet] 1 tab PO DAILY 06/09/17 Olanzapine [Zyprexa 2.5 mg Tablet] 2.5 mg PO DAILY 06/09/17 Omeprazole 40 mg PO DAILY 06/09/17 Oxycodone HCl [Oxycodone HCl 10 MG Tablet] 10 mg PO Q6HP PRN 06/09/17 Prednisone [Deltasone 10 mg Tablet] 10 mg PO DAILY 06/09/17 Roflumilast [Daliresp 500 mcg Tablet] 500 mcg PO DAILY 06/09/17 Tolterodine Tartrate [Detrol LA] 2 mg PO DAILY 06/09/17 Levalbuterol HCl [Xopenex Neb 0.63 mg/3 ml Ampul] 0.63 mg NEB RTQ6 #120 vial.neb 06/16/17 Lisinopril [Prinivil 5 mg Tablet] 5 mg PO DAILY@1100 #30 tablet 06/16/17 Metoprolol Succinate [Toprol Xl 25 mg Tab.sr] 25 mg PO Q12 #60 tab.sr.24h Spironolactone [Aldactone 25 mg Tablet] 25 mg PO DAILY@1200 #30 tablet 06/16/17 Tiotropium [place] [Spiriva Handihaler 5 Cap/Kit (18 Mcg/Cap)] 1 cap IH DAILY # 6 capsule 06/16/17 Allergies/Adverse Reactions: No Known Allergies Allergy (Verified 06/12/18 18:15) Review of Systems Review of Systems: As per history of present illness. All pertinent systems were reviewed above. Constitutional, HEENT, cardiovascular, respiratory, GI, , musculoskeletal, neuro, psychiatric, endocrine, integumentary and hematologic systems were reviewed and are otherwise negative/unremarkable except for positive findings mentioned above in the HPI. Physical Exam Vital Signs: Temp Pulse Resp BP Pulse Ox 99.9 F 22 H 102/47 L 91 L 06/12/18 18:13 06/13/18 00:02 06/12/18 21:00 06/13/18 00:02 Exam: Generally: Pleasant elderly female in mild respiratory distress on BiPAP Vital signs-as listed Head - atraumatic, normocephalic. Pupils - equal, round and reactive to light and accommodation. Extraocular movements are intact. No scleral icterus. Oropharynx - moist mucous membranes and tongue. No pharyngeal erythema or exudate. Neck - supple. No JVD. Carotid pulses 2+ bilaterally. No carotid bruits. No palpable thyromegaly or lymphadenopathy. Cardiovascular - regular rate and rhythm. Normal S1 and S2. No murmurs, gallops or rubs. Lungs -diminished expiratory airflow with harsh vesicular breathing and occasional expiratory wheezes Abdomen - soft and nontender. Positive bowel sounds. No palpable organomegaly or masses. Extremities - no pitting edema, clubbing or cyanosis. Neuro - grossly non-focal. Skin - no rashes. Breast, pelvic and rectal - deferred Results Impressions: Chest X-Ray 06/12/18 18:29 IMPRESSION: NO ACUTE RADIOGRAPHIC FINDING IN THE CHEST. Assessment & Plan - Diagnosis (1) Acute and chronic respiratory failure ([id number]) Qualifiers: Respiratory failure complication: hypoxia and hypercapnia Qualified Code(s) : J96.21 - Acute and chronic respiratory failure with hypoxia; J96.22 - Acute and chronic respiratory failure with hypercapnia; J96.22 - Acute and chronic respiratory failure with hypercapnia; J96.22 - Acute and chronic respiratory failure with hypercapnia Is this a current diagnosis for this admission?: Yes Plan: She will be continued on BiPAP overnight in an IMCU bed. Will follow her ABG. Management of COPD as below. (2) COPD exacerbation Is this a current diagnosis for this admission?: Yes Plan: The patient will be admitted to a medically monitored bed and will be placed on IV steroid therapy with IV Solu-Medrol as well as nebulized bronchodilator therapy with duonebs q.i.d. and q.4 hours p.r.n., mucolytic therapy with Mucinex and antibiotic therapy with IV Rocephin and Zithromax. Sputum Gram stain culture and sensitivity will be obtained. O2 protocol will be followed. We will continue her Daliresp for her pulmonary hypertension (3) Chronic systolic (congestive) heart failure Is this a current diagnosis for this admission?: Yes Plan: This is fairly compensated at this time. (4) Hypertension Is this a current diagnosis for this admission?: Yes Plan: This is apparently diet managed. We will place her on as needed IV labetalol (5) GERD (gastroesophageal reflux disease) Qualifiers: Esophagitis presence: without esophagitis Qualified Code(s): K21.9 - Gastro -esophageal reflux disease without esophagitis Is this a current diagnosis for this admission?: Yes Plan: PPI therapy will be resumed (6) DVT prophylaxis Is this a current diagnosis for this admission?: Yes Plan: Subcutaneous Lovenox - Plan Summary Plan Summary: The plan of care was discussed in details with the patient. I answered all questions. The patient agreed to proceed with the above-mentioned plan. The patient is presumably full code. This note was created by [employer] software and may contain typo errors that may have not been proofread.
[2018-06-13 03:23] LABS: ARTERIAL BLOOD BASE EXCESS 8.2 mmol/L; ARTERIAL BLOOD HCO3 35.2 mmol/L (20-26); ARTERIAL BLOOD O2 SATURATION 91.3 % (94-98); ARTERIAL BLOOD PH 7.37 (7.35-7.45); ARTERIAL BLOOD PO2 64.6 mmHg (80-100); ARTERIAL BLOOD TOTAL CO2 37.1 mmol/L (21-25)
[2018-06-13 03:24] LABS: ARTERIAL BLOOD FIO2 30%
[2018-06-13] MEDS: LANSOPRAZOLE 30 MG TAB.RAP.DR PO SCH (05:42)
[2018-06-13] MEDS: OXYCODONE HCL IR 5 MG TABLET PO PRN ×3 (05:42→20:24)
[2018-06-13] MEDS: METHYLPREDNISOLONE INJ 125 MG/2 ML SDV IV SCH ×3 (05:42→21:38)
[2018-06-13 06:32] LABS: ABSOLUTE LYMPHOCYTES (AUTO) 0.8 10^3/uL (0.5-4.7); ABSOLUTE MONOCYTES (AUTO) 0.1 10^3/uL (0.1-1.4); ABSOLUTE NEUT (AUTO) 13.8 10^3/uL (1.7-8.2); BASOPHILS % (AUTO) 0.2 % (0-2); HEMATOCRIT 33.4 % (36.0-47.0); HEMOGLOBIN 10.6 g/dL (12.0-15.5); LYMPHOCYTES % (AUTO) 5.7 % (13-45); MEAN CORPUSCULAR HEMOGLOBIN 27.6 pg (27.0-33.4); MEAN CORPUSCULAR HGB CONC 31.6 g/dL (32.0-36.0); MEAN CORPUSCULAR VOLUME 87 fl (80-97); MONOCYTES % (AUTO) 0.6 % (3-13); PLATELET COUNT 319 10^3/uL (150-450); RED BLOOD COUNT 3.83 10^6/uL (3.72-5.28); RED CELL DISTRIBUTION WIDTH 15.7 % (11.5-14.0); SEGMENTED NEUTROPHILS % (AUTO) 93.5 % (42-78); TOTAL CELLS COUNTED % (AUTO) 100 %; WHITE BLOOD COUNT 14.8 10^3/uL (4.0-10.5)
[2018-06-13 07:45] LABS: ANION GAP 7 (5-19); BLOOD UREA NITROGEN 10 mg/dL (7-20); CALCIUM 8.8 mg/dL (8.4-10.2); CARBON DIOXIDE 39 mmol/L (22-30); CHLORIDE 96 mmol/L (98-107); GLUCOSE 141 mg/dL (75-110); POTASSIUM 4.7 mmol/L (3.6-5.0); SODIUM 141.5 mmol/L (137-145)
[2018-06-13] MEDS: IPRATROPIUM/ALBUTEROL 0.5-2.5 MG/3 ML AMPUL NEB SCH ×4 (09:05→20:26)
[2018-06-13] MEDS ORDERED: CEFTRIAXONE SODIUM 2,000 MG in DEXTROSE 5%-WATER 100 ML IV SCH (10:00)
[2018-06-13] MEDS ORDERED: TIOTROPIUM BROMIDE DPI 5 CAP/KIT (18 MCG/CAP) IH SCH (10:00)
--- NOTE | 2018-06-13 11:21 | PDOC CONSULTATION ---
Consultation Consult Date: 06/13/18 Attending physician:: JULITO TRIVEDI Consult reason:: Acute on chronic respiratory failure History of Present Illness Admission Date/PCP: 06/12/18 23:41 [place] ZUNIGA MD History of Present Illness: SMITH IRAHETA is a 72 year old femaleChronic O2 dependent respiratory failure due to COPD percent lethargic with a pH of 6.941 PCO2 198 subsequently started on BiPAP with some improvement in the PCO2 and the ph however she remains lethargic at this time. Patient is well-known to [facility] Past Medical History Cardiac Medical History: Reports: Congestive Heart Failure - Ejection fraction of less than 25%, May 2014., Coronary Artery Disease, Hypertension Denies: DVT, Myocardial Infarction, Hyperlipidema, Pulmonary Embolism Pulmonary Medical History: Reports: Chronic Obstructive Pulmonary Disease (COPD ) - 3L nasal O2 at home, Pneumonia Denies: Asthma Neurological Medical History: Denies: Seizures Endocrine Medical History: Denies: Diabetes Mellitus Type 1, Diabetes Mellitus Type 2, Hyperthyroidism, Hypothyroidism GI Medical History: Reports: Gastroesophageal Reflux Disease - Mild, Hiatal Hernia Denies: Cirrhosis, Hepatitis Musculoskeltal Medical History: Reports: Arthritis Psychiatric Medical History: Reports: Depression Hematology: Reports: Anemia Denies: Sickle Cell Disease Past Surgical History Past Surgical History: Reports: Cholecystectomy, Orthopedic Surgery - "back surgery", Other - Last colonoscopy many years ago Denies: Amputation, Hysterectomy, Mastectomy, Pacemaker Social History Smoking Status: Former Smoker Passive smoke exposure as: Both Frequency of Alcohol Use: None Hx Recreational Drug Use: No Drugs: None Hx Prescription Drug Abuse: No Do you have pets?: No Have you had any respiratory illnesses as a child?: No Have you been exposed to any sick contacts recently?: No Have you had any recent respiratory illnesses?: No Have you travelled outside of [place] in the past 12 months?: No Family History Family History: CVA, Malignancy Parental Family History Reviewed: Yes Children Family History Reviewed: Yes Sibling(s) Family History Reviewed.: Yes Medication/Allergy Home Medications: Albuterol Sulfate [Proair HFA] 2 puff IH Q4 PRN 06/09/17 Aspirin [Aspirin EC] 81 mg PO DAILY 06/09/17 Fluticasone Propionate [Flonase Nasal [place] 50 Mcg/[place] 16 gm] 1 spray NAREB Q12 06/09/17 Montelukast Sodium [Singulair 10 mg Tablet] 10 mg PO QHS 06/09/17 Olanzapine [Zyprexa 2.5 mg Tablet] 2.5 mg PO DAILY 06/09/17 Oxycodone HCl [Oxycodone HCl 10 MG Tablet] 10 mg PO Q6HP PRN 06/09/17 Roflumilast [Daliresp 500 mcg Tablet] 500 mcg PO DAILY 06/09/17 Fluticasone/Salmeterol [Advair 500-50 Diskus 28 Dose] 1 inh IH Q12H 06/13/18 Furosemide [Lasix 20 mg Tablet] 40 mg PO DAILYP PRN 06/13/18 Ibuprofen [Motrin 800 mg Tablet] 800 mg PO Q8H PRN 06/13/18 Ipratropium/Albuterol Sulfate [Iprat-Albut 0.5-3(2.5) Mg/3 Ml] 3 ml IH QID 06/13 Lisinopril [Zestril] 2.5 mg PO DAILY 06/13/18 Multivitamin [Multivitamins] 1 each PO DAILY 06/13/18 Nitroglycerin [Nitro-Dur 10 mg (0.4MG/Hr) Transdermal Patch] 1 patch TD QAM 06/23 Potassium Chloride [Klor-Con M20] 20 meq PO BID 06/13/18 Pramipexole Di-HCl [Pramipexole Dihydrochloride] 0.25 mg PO QHS 06/13/18 Pravastatin Sodium [Pravachol] 20 mg PO QHS 06/13/18 Tolterodine Tartrate [Detrol LA] 2 mg PO DAILY 06/13/18 Allergies/Adverse Reactions: No Known Allergies Allergy (Verified 06/12/18 18:15) Review of Systems ROS unobtainable: Due to mental status Physical Exam Vital Signs: Temp Pulse Resp BP Pulse Ox 97.4 F 94 24 H 129/61 H 100 06/13/18 07:59 06/13/18 09:08 06/13/18 10:25 06/13/18 07:59 06/13/18 09:08 General appearance: PRESENT: disheveled, mild distress. ABSENT: cooperative Head exam: PRESENT: atraumatic, normocephalic Eye exam: PRESENT: conjunctiva pale. ABSENT: EOMI, nystagmus, periorbital swelling, scleral icterus Mouth exam: PRESENT: dry mucosa, neck supple, tongue midline Neck exam: ABSENT: carotid bruit, JVD, lymphadenopathy, thyromegaly, tracheal deviation, tracheostomy Respiratory exam: PRESENT: decreased breath sounds, prolonged expiratory phas, rhonchi, unlabored, wheezes. ABSENT: stridor, tachypnea Cardiovascular exam: PRESENT: RRR, +S1, +S2 Pulses: PRESENT: normal radial pulses GI/Abdominal exam: PRESENT: normal bowel sounds, soft Extremities exam: ABSENT: calf tenderness, clubbing, joint swelling, pedal edema Musculoskeletal exam: ABSENT: deformity, dislocation Neurological exam: PRESENT: awake, oriented to person, oriented to place, oriented to time, oriented to situation Psychiatric exam: PRESENT: flat affect Skin exam: PRESENT: dry, warm Results Laboratory Results: 06/13/18 05:50 06/13/18 07:21 06/13/18 06/13/18 06/13/18 02:49 05:50 05:50 WBC 14.8 H RBC 3.83 Hgb 10.6 L Hct 33.4 L MCV 87 MCH 27.6 MCHC 31.6 L RDW 15.7 H Plt Count 319 Seg Neutrophils % 93.5 H Lymphocytes % 5.7 L Monocytes % 0.6 L Eosinophils % 0.0 Basophils % 0.2 Absolute Neutrophils 13.8 H Absolute Lymphocytes 0.8 Absolute Monocytes 0.1 Absolute Eosinophils 0.0 Absolute Basophils 0.0 Carbonic Acid 1.90 H HCO3/H2CO3 Ratio 18:1 ABG pH 7.37 ABG pCO2 63.0 H ABG pO2 64.6 L ABG HCO3 35.2 H ABG O2 Saturation 91.3 L ABG Base Excess 8.2 FiO2 30% Sodium Cancelled Potassium Cancelled Chloride Cancelled Carbon Dioxide Cancelled Anion Gap Cancelled BUN Cancelled Creatinine Cancelled Est GFR ( Amer) Cancelled Est GFR (Non-Af Amer) Cancelled Glucose Cancelled Calcium Cancelled 06/13/18 07:21 WBC RBC Hgb Hct MCV MCH MCHC RDW Plt Count Seg Neutrophils % Lymphocytes % Monocytes % Eosinophils % Basophils % Absolute Neutrophils Absolute Lymphocytes Absolute Monocytes Absolute Eosinophils Absolute Basophils Carbonic Acid HCO3/H2CO3 Ratio ABG pH ABG pCO2 ABG pO2 ABG HCO3 ABG O2 Saturation ABG Base Excess FiO2 Sodium 141.5 Potassium 4.7 Chloride 96 L Carbon Dioxide 39 H Anion Gap 7 BUN 10 Creatinine 0.49 L Est GFR ( Amer) > 60 Est GFR (Non-Af Amer) > 60 Glucose 141 H Calcium 8.8 Impressions: Chest X-Ray 06/12/18 18:29 IMPRESSION: NO ACUTE RADIOGRAPHIC FINDING IN THE CHEST. Assessment & Plan - Diagnosis (1) Acute and chronic respiratory failure ([id number]) Qualifiers: Respiratory failure complication: hypoxia and hypercapnia Qualified Code(s) : J96.21 - Acute and chronic respiratory failure with hypoxia; J96.22 - Acute and chronic respiratory failure with hypercapnia; J96.22 - Acute and chronic respiratory failure with hypercapnia; J96.22 - Acute and chronic respiratory failure with hypercapnia Is this a current diagnosis for this admission?: Yes Plan: Using noninvasive positive pressure ventilation try to normalize pH and PCO2 patient baseline (2) Hypertension Is this a current diagnosis for this admission?: Yes (3) Atrial fibrillation with rapid ventricular response Is this a current diagnosis for this admission?: Yes Plan: Stable at this time (4) GERD (gastroesophageal reflux disease) Qualifiers: Esophagitis presence: without esophagitis Qualified Code(s): K21.9 - Gastro -esophageal reflux disease without esophagitis Is this a current diagnosis for this admission?: Yes Plan: ppi (5) Tobacco abuse Is this a current diagnosis for this admission?: Yes - Time Total Critical Time (Minutes): 55
[2018-06-13] MEDS: OLANZAPINE 2.5 MG TABLET PO SCH (12:11)
[2018-06-13] MEDS: METOPROLOL SUCCINATE 25 MG TAB.SR.24H PO SCH ×2 (12:11→21:38)
[2018-06-13] MEDS: SPIRONOLACTONE 25 MG TABLET PO SCH (12:12)
[2018-06-13] MEDS: MULTIVITAMIN TABLET PO SCH (12:12)
[2018-06-13] MEDS: LISINOPRIL 5 MG TABLET PO SCH (12:12)
[2018-06-13] MEDS: ASPIRIN 81 MG TABLET, ENT COATED PO SCH (12:12)
[2018-06-13] MEDS: ENOXAPARIN SODIUM INJ 40 MG/0.4 ML DISP.SYRIN SUBCUT SCH (12:13)
[2018-06-13] MEDS: CEFTRIAXONE 2 GM/D5W RTU 2 GM/50 ML RTUPB IV SCH (12:13)
[2018-06-13] MEDS: TOLTERODINE TARTRATE 1 MG TABLET PO SCH ×2 (12:14→21:38)
[2018-06-13] MEDS: ROFLUMILAST 500 MCG TABLET PO SCH (12:14)
[2018-06-13] MEDS: FLUTICASONE NASAL SPRAY 50 MCG/SPRY 120 SPRAY/16 GM NAREB SCH ×2 (12:14→21:38)
[2018-06-13 13:13] LABS: APPEARANCE,URINE SLIGHTLY-CLOUDY; BILIRUBIN,URINE NEGATIVE (NEGATIVE); COLOR,URINE YELLOW; GLUCOSE, URINE 150 mg/dL (NEGATIVE); KETONES,URINE TRACE mg/dL (NEGATIVE); LEUKOCYTE ESTERASE,URINE MODERATE (NEGATIVE); NITRITE,URINE NEGATIVE (NEGATIVE); PROTEIN,URINE NEGATIVE (NEGATIVE); URINE SPECIFIC GRAVITY 1.013; UROBILINOGEN,URINE NEGATIVE mg/dL (<2.0)
[2018-06-13 14:17] LABS: ARTERIAL BLOOD BASE EXCESS 5.3 mmol/L; ARTERIAL BLOOD H2CO3 1.78 mmol/L (1.05-1.35); ARTERIAL BLOOD HCO3 32.4 mmol/L (20-26); ARTERIAL BLOOD O2 SATURATION 81.3 % (94-98); ARTERIAL BLOOD PCO2 59.3 mmHg (35-45); ARTERIAL BLOOD PH 7.36 (7.35-7.45); ARTERIAL BLOOD PO2 48.3 mmHg (80-100); ARTERIAL BLOOD TOTAL CO2 34.3 mmol/L (21-25)
[2018-06-13 14:23] LABS: ARTERIAL BLOOD FIO2 30%
--- NOTE | 2018-06-13 19:19 | PDOC PROGRESS REPORT ---
Subjective Progress Note for:: 06/13/18 Subjective:: The patient states that she still feels quite short of breath. No new complaints. Reason For Visit: ACUTE RESPIRATORY FAILURE, COPD ACUTE EXACERBATION Physical Exam Vital Signs: Temp Pulse Resp BP Pulse Ox 98.3 F 102 H 15 112/53 L 97 06/13/18 14:47 06/13/18 15:01 06/13/18 14:47 06/13/18 14:47 06/13/18 14:47 Intake & Output 06/12/18 06/13/18 06/14/18 06:59 06:59 06:59 Intake Total 650 Balance 650 Weight 63 kg General appearance: PRESENT: mild distress - Shortness of breath. Respiratory exam: PRESENT: decreased breath sounds, rhonchi, wheezes, other - Positive for increased work of breathing.. ABSENT: rales Cardiovascular exam: PRESENT: RRR, other - No lateral PMI. No thrills.. ABSENT : gallop, rubs, systolic murmur Pulses: PRESENT: normal dorsalis pedis pul GI/Abdominal exam: PRESENT: normal bowel sounds, soft. ABSENT: hernia, mass, organolmegaly, tenderness Rectal exam: PRESENT: deferred Extremities exam: PRESENT: +1 edema. ABSENT: clubbing, tenderness Musculoskeletal exam: PRESENT: normal inspection. ABSENT: deformity, dislocation Neurological exam: PRESENT: alert, awake, oriented to person, oriented to place , oriented to time, oriented to situation, CN II-XII grossly intact. ABSENT: motor sensory deficit Skin exam: PRESENT: dry, intact, warm Results Laboratory Results: 06/13/18 05:50 06/13/18 07:21 06/13/18 06/13/18 06/13/18 02:49 05:50 05:50 WBC 14.8 H RBC 3.83 Hgb 10.6 L Hct 33.4 L MCV 87 MCH 27.6 MCHC 31.6 L RDW 15.7 H Plt Count 319 Seg Neutrophils % 93.5 H Lymphocytes % 5.7 L Monocytes % 0.6 L Eosinophils % 0.0 Basophils % 0.2 Absolute Neutrophils 13.8 H Absolute Lymphocytes 0.8 Absolute Monocytes 0.1 Absolute Eosinophils 0.0 Absolute Basophils 0.0 Carbonic Acid 1.90 H HCO3/H2CO3 Ratio 18:1 ABG pH 7.37 ABG pCO2 63.0 H ABG pO2 64.6 L ABG HCO3 35.2 H ABG O2 Saturation 91.3 L ABG Base Excess 8.2 FiO2 30% Sodium Cancelled Potassium Cancelled Chloride Cancelled Carbon Dioxide Cancelled Anion Gap Cancelled BUN Cancelled Creatinine Cancelled Est GFR ( Amer) Cancelled Est GFR (Non-Af Amer) Cancelled Glucose Cancelled Calcium Cancelled Urine Color Urine Appearance Urine pH Ur Specific [place] Urine Protein Urine Glucose (UA) Urine Ketones Urine Blood Urine Nitrite Ur Leukocyte Esterase Urine WBC (Auto) Urine RBC (Auto) 06/13/18 06/13/18 06/13/18 07:21 12:50 13:40 WBC RBC Hgb Hct MCV MCH MCHC RDW Plt Count Seg Neutrophils % Lymphocytes % Monocytes % Eosinophils % Basophils % Absolute Neutrophils Absolute Lymphocytes Absolute Monocytes Absolute Eosinophils Absolute Basophils Carbonic Acid 1.78 H HCO3/H2CO3 Ratio 18:1 ABG pH 7.36 ABG pCO2 59.3 H ABG pO2 48.3 L ABG HCO3 32.4 H ABG O2 Saturation 81.3 L ABG Base Excess 5.3 FiO2 30% Sodium 141.5 Potassium 4.7 Chloride 96 L Carbon Dioxide 39 H Anion Gap 7 BUN 10 Creatinine 0.49 L Est GFR ( Amer) > 60 Est GFR (Non-Af Amer) > 60 Glucose 141 H Calcium 8.8 Urine Color YELLOW Urine Appearance SLIGHTLY-CLOUDY Urine pH 6.0 Ur Specific [place] 1.013 Urine Protein NEGATIVE Urine Glucose (UA) 150 H Urine Ketones TRACE H Urine Blood NEGATIVE Urine Nitrite NEGATIVE Ur Leukocyte Esterase MODERATE H Urine WBC (Auto) 13 Urine RBC (Auto) 7 Impressions: Chest X-Ray 06/12/18 18:29 IMPRESSION: NO ACUTE RADIOGRAPHIC FINDING IN THE CHEST. Assessment & Plan - Diagnosis (1) Acute and chronic respiratory failure ([id number]) Qualifiers: Respiratory failure complication: hypoxia and hypercapnia Qualified Code(s) : J96.21 - Acute and chronic respiratory failure with hypoxia; J96.22 - Acute and chronic respiratory failure with hypercapnia; J96.22 - Acute and chronic respiratory failure with hypercapnia; J96.22 - Acute and chronic respiratory failure with hypercapnia Is this a current diagnosis for this admission?: Yes Plan: Currently requiring BIPAP. Monitor closely. The patient is known to Dr. Brewer. (2) Hypertension Qualifiers: Hypertension type: essential hypertension Qualified Code(s): I10 - Essential (primary) hypertension Is this a current diagnosis for this admission?: Yes Plan: Continue home medications. (3) Acute respiratory acidosis Is this a current diagnosis for this admission?: Yes Plan: BIPAP. (4) Anemia Qualifiers: Anemia type: unspecified type Qualified Code(s): D64.9 - Anemia, unspecified Is this a current diagnosis for this admission?: Yes (5) Atrial fibrillation with rapid ventricular response Is this a current diagnosis for this admission?: Yes Plan: Currently Sinus arrhythmia. Monitor. (6) COPD exacerbation Is this a current diagnosis for this admission?: Yes Plan: Nebs and steroids. (7) Chronic systolic (congestive) heart failure Is this a current diagnosis for this admission?: Yes Plan: Monitor volume status. (8) Coronary artery disease Qualifiers: Coronary Disease-Associated Artery/Lesion type: [place] artery [place] vs. transplanted heart: [place] heart Associated angina: without angina Qualified Code(s): I25.10 - Atherosclerotic heart disease of [place] coronary artery without angina pectoris Is this a current diagnosis for this admission?: Yes Plan: Noted. Continue home medications. - Time Time Spent with patient: 35 or more minutes Medications reviewed and adjusted accordingly: Yes
[2018-06-13] MEDS: BUDESONIDE NEB 0.5 MG/2 ML AMPUL NEB SCH (20:26)
[2018-06-13] MEDS: MONTELUKAST SODIUM 10 MG TABLET PO SCH (21:38)
[2018-06-14] MEDS: NORMAL SALINE 1000 ML 1,000 ML IV PRN ×2 (00:06→10:05)
[2018-06-14 05:04] LABS: ABSOLUTE MONOCYTES (AUTO) 0.3 10^3/uL (0.1-1.4); ABSOLUTE NEUT (AUTO) 15.4 10^3/uL (1.7-8.2); BASOPHILS % (AUTO) 0.1 % (0-2); HEMATOCRIT 30.2 % (36.0-47.0); HEMOGLOBIN 9.6 g/dL (12.0-15.5); LYMPHOCYTES % (AUTO) 5.7 % (13-45); MEAN CORPUSCULAR HGB CONC 31.7 g/dL (32.0-36.0); MEAN CORPUSCULAR VOLUME 85 fl (80-97); MONOCYTES % (AUTO) 2.1 % (3-13); PLATELET COUNT 298 10^3/uL (150-450); RED BLOOD COUNT 3.55 10^6/uL (3.72-5.28); RED CELL DISTRIBUTION WIDTH 15.7 % (11.5-14.0); SEGMENTED NEUTROPHILS % (AUTO) 92.1 % (42-78); TOTAL CELLS COUNTED % (AUTO) 100 %; WHITE BLOOD COUNT 16.7 10^3/uL (4.0-10.5)
[2018-06-14] MEDS: PRAMIPEXOLE DI-HCL 0.25 MG TABLET PO SCH ×2 (05:06→21:59)
[2018-06-14] MEDS: LANSOPRAZOLE 30 MG TAB.RAP.DR PO SCH (05:11)
[2018-06-14] MEDS: METHYLPREDNISOLONE INJ 125 MG/2 ML SDV IV SCH ×3 (05:11→22:00)
[2018-06-14 05:25] LABS: ANION GAP 6 (5-19); BLOOD UREA NITROGEN 16 mg/dL (7-20); CALCIUM 8.7 mg/dL (8.4-10.2); CARBON DIOXIDE 36 mmol/L (22-30); CHLORIDE 99 mmol/L (98-107); GLUCOSE 153 mg/dL (75-110); POTASSIUM 4.3 mmol/L (3.6-5.0); SODIUM 140.9 mmol/L (137-145)
[2018-06-14] MEDS: BUDESONIDE NEB 0.5 MG/2 ML AMPUL NEB SCH ×2 (08:26→19:37)
[2018-06-14] MEDS: IPRATROPIUM/ALBUTEROL 0.5-2.5 MG/3 ML AMPUL NEB SCH ×4 (08:26→19:37)
[2018-06-14 08:33] LABS: ARTERIAL BLOOD BASE EXCESS 6.7 mmol/L; ARTERIAL BLOOD H2CO3 1.85 mmol/L (1.05-1.35); ARTERIAL BLOOD HCO3 33.6 mmol/L (20-26); ARTERIAL BLOOD PCO2 61.3 mmHg (35-45); ARTERIAL BLOOD PH 7.36 (7.35-7.45); ARTERIAL BLOOD PO2 97.3 mmHg (80-100); ARTERIAL BLOOD TOTAL CO2 35.5 mmol/L (21-25)
[2018-06-14 08:35] LABS: ARTERIAL BLOOD FIO2 3L
[2018-06-14] MEDS: FLUTICASONE NASAL SPRAY 50 MCG/SPRY 120 SPRAY/16 GM NAREB SCH ×2 (10:05→21:58)
[2018-06-14] MEDS: OLANZAPINE 2.5 MG TABLET PO SCH (10:05)
[2018-06-14] MEDS: ROFLUMILAST 500 MCG TABLET PO SCH (10:05)
[2018-06-14] MEDS: ASPIRIN 81 MG TABLET, ENT COATED PO SCH (10:05)
[2018-06-14] MEDS: MULTIVITAMIN TABLET PO SCH (10:05)
[2018-06-14] MEDS: METOPROLOL SUCCINATE 25 MG TAB.SR.24H PO SCH ×2 (10:05→21:59)
[2018-06-14] MEDS: TOLTERODINE TARTRATE 1 MG TABLET PO SCH ×2 (10:05→21:59)
[2018-06-14] MEDS: ENOXAPARIN SODIUM INJ 40 MG/0.4 ML DISP.SYRIN SUBCUT SCH (10:05)
[2018-06-14] MEDS: CEFTRIAXONE 2 GM/D5W RTU 2 GM/50 ML RTUPB IV SCH (10:07)
[2018-06-14] MEDS: OXYCODONE HCL IR 5 MG TABLET PO PRN ×2 (10:10→16:57)
--- NOTE | 2018-06-14 11:14 | Physician Advisory Note ---
Physician Advisor ProgressNote .: [facility] have [facility] medical record for this patient. Physician Advisor Statement: Excellent documentation of acute on chr resp failure w/evidence, acute resp acidosis, chr syst CHF, & COPD exac evidenced by acute resp failure & increased wheezing/cough/SOB/sputum. Please consider documenting, if you agree: 1. "Possible acute bronchitis", or what is the infxn being tx'd w/abx, since COPD exac.s don't always require abx unless there is suspicion of an underlying infxn. Thanks! CK
[2018-06-14] MEDS: LISINOPRIL 5 MG TABLET PO SCH (11:21)
[2018-06-14] MEDS: SPIRONOLACTONE 25 MG TABLET PO SCH (11:22)
--- NOTE | 2018-06-14 14:52 | PDOC PROGRESS REPORT ---
Subjective Progress Note for:: 06/14/18 Subjective:: The patient states that she is feeling better. She complains bitterly of the cardiac diet. Reason For Visit: ACUTE RESPIRATORY FAILURE, COPD ACUTE EXACERBATION Physical Exam Vital Signs: Temp Pulse Resp BP Pulse Ox 98.3 F 97 16 138/59 H 98 06/14/18 11:31 06/14/18 12:39 06/14/18 12:39 06/14/18 11:31 06/14/18 12:39 Intake & Output 06/13/18 06/14/18 06/15/18 06:59 06:59 06:59 Intake Total 1094 1166 Balance 1094 1166 Weight 62.6 kg General appearance: PRESENT: no acute distress, cooperative Respiratory exam: PRESENT: rhonchi, other - Diminished breath sounds bilaterally.. ABSENT: rales, wheezes Cardiovascular exam: PRESENT: RRR. ABSENT: gallop, rubs, systolic murmur Pulses: PRESENT: other - Diminished distal pulses. GI/Abdominal exam: PRESENT: normal bowel sounds, soft, other. ABSENT: hernia, mass, organolmegaly, tenderness Rectal exam: PRESENT: deferred Neurological exam: PRESENT: alert, awake, oriented to person, oriented to place , oriented to time, oriented to situation, CN II-XII grossly intact. ABSENT: motor sensory deficit Psychiatric exam: PRESENT: appropriate affect, normal mood Skin exam: PRESENT: dry, intact, warm Results Laboratory Results: 06/14/18 04:33 06/14/18 04:33 06/14/18 06/14/18 06/14/18 04:33 04:33 08:25 WBC 16.7 H RBC 3.55 L Hgb 9.6 L Hct 30.2 L MCV 85 MCH 27.0 MCHC 31.7 L RDW 15.7 H Plt Count 298 Seg Neutrophils % 92.1 H Lymphocytes % 5.7 L Monocytes % 2.1 L Eosinophils % 0.0 Basophils % 0.1 Absolute Neutrophils 15.4 H Absolute Lymphocytes 1.0 Absolute Monocytes 0.3 Absolute Eosinophils 0.0 Absolute Basophils 0.0 Carbonic Acid 1.85 H HCO3/H2CO3 Ratio 18:1 ABG pH 7.36 ABG pCO2 61.3 H ABG pO2 97.3 ABG HCO3 33.6 H ABG O2 Saturation 97.0 ABG Base Excess 6.7 FiO2 3L Sodium 140.9 Potassium 4.3 Chloride 99 Carbon Dioxide 36 H Anion Gap 6 BUN 16 Creatinine 0.63 Est GFR ( Amer) > 60 Est GFR (Non-Af Amer) > 60 Glucose 153 H Calcium 8.7 Impressions: Chest X-Ray 06/12/18 18:29 IMPRESSION: NO ACUTE RADIOGRAPHIC FINDING IN THE CHEST. Assessment & Plan - Diagnosis (1) Acute and chronic respiratory failure ([id number]) Qualifiers: Respiratory failure complication: hypoxia and hypercapnia Qualified Code(s) : J96.21 - Acute and chronic respiratory failure with hypoxia; J96.22 - Acute and chronic respiratory failure with hypercapnia; J96.22 - Acute and chronic respiratory failure with hypercapnia; J96.22 - Acute and chronic respiratory failure with hypercapnia Is this a current diagnosis for this admission?: Yes Plan: Currently requiring BIPAP. Monitor closely. The patient is known to Dr. Brewer who has been consulted. (2) Hypertension Qualifiers: Hypertension type: essential hypertension Qualified Code(s): I10 - Essential (primary) hypertension Is this a current diagnosis for this admission?: Yes Plan: Continue home medications. (3) Anemia Qualifiers: Anemia type: unspecified type Qualified Code(s): D64.9 - Anemia, unspecified Is this a current diagnosis for this admission?: Yes Plan: Monitor H&H and transfuse as necessary. (4) Atrial fibrillation with rapid ventricular response Is this a current diagnosis for this admission?: Yes Plan: Currently Sinus arrhythmia. Monitor. On metoprolol. (5) COPD exacerbation Is this a current diagnosis for this admission?: Yes Plan: Nebs and steroids. Wean steroids. (6) Chronic systolic (congestive) heart failure Is this a current diagnosis for this admission?: Yes Plan: Monitor volume status. (7) Coronary artery disease Qualifiers: Coronary Disease-Associated Artery/Lesion type: [place] artery [place] vs. transplanted heart: [place] heart Associated angina: without angina Qualified Code(s): I25.10 - Atherosclerotic heart disease of [place] coronary artery without angina pectoris Is this a current diagnosis for this admission?: Yes Plan: Noted. Continue home medications. - Time Time Spent with patient: 25-34 minutes
[2018-06-14] MEDS: MONTELUKAST SODIUM 10 MG TABLET PO SCH (21:59)
[2018-06-15] MEDS: NORMAL SALINE 1000 ML 1,000 ML IV PRN ×2 (00:05→09:45)
[2018-06-15 05:07] LABS: ABSOLUTE MONOCYTES (AUTO) 0.3 10^3/uL (0.1-1.4); ABSOLUTE NEUT (AUTO) 16.8 10^3/uL (1.7-8.2); HEMOGLOBIN 9.6 g/dL (12.0-15.5); LYMPHOCYTES % (AUTO) 5.6 % (13-45); MEAN CORPUSCULAR HEMOGLOBIN 27.4 pg (27.0-33.4); MEAN CORPUSCULAR HGB CONC 31.9 g/dL (32.0-36.0); MEAN CORPUSCULAR VOLUME 86 fl (80-97); MONOCYTES % (AUTO) 1.8 % (3-13); PLATELET COUNT 308 10^3/uL (150-450); RED BLOOD COUNT 3.49 10^6/uL (3.72-5.28); SEGMENTED NEUTROPHILS % (AUTO) 92.6 % (42-78); TOTAL CELLS COUNTED % (AUTO) 100 %; WHITE BLOOD COUNT 18.2 10^3/uL (4.0-10.5)
[2018-06-15 05:25] LABS: ANION GAP 6 (5-19); BLOOD UREA NITROGEN 21 mg/dL (7-20); CALCIUM 8.9 mg/dL (8.4-10.2); CARBON DIOXIDE 33 mmol/L (22-30); CHLORIDE 103 mmol/L (98-107); GLUCOSE 122 mg/dL (75-110); POTASSIUM 4.4 mmol/L (3.6-5.0); SODIUM 142.4 mmol/L (137-145)
[2018-06-15] MEDS: METHYLPREDNISOLONE INJ 125 MG/2 ML SDV IV SCH ×3 (06:06→21:40)
[2018-06-15] MEDS: LANSOPRAZOLE 30 MG TAB.RAP.DR PO SCH (06:07)
[2018-06-15] MEDS: IPRATROPIUM/ALBUTEROL 0.5-2.5 MG/3 ML AMPUL NEB SCH ×4 (09:11→19:52)
[2018-06-15] MEDS: BUDESONIDE NEB 0.5 MG/2 ML AMPUL NEB SCH ×2 (09:11→19:52)
[2018-06-15] MEDS: OLANZAPINE 2.5 MG TABLET PO SCH (09:45)
[2018-06-15] MEDS: METOPROLOL SUCCINATE 25 MG TAB.SR.24H PO SCH ×2 (09:45→21:39)
[2018-06-15] MEDS: ENOXAPARIN SODIUM INJ 40 MG/0.4 ML DISP.SYRIN SUBCUT SCH (09:45)
[2018-06-15] MEDS: FLUTICASONE NASAL SPRAY 50 MCG/SPRY 120 SPRAY/16 GM NAREB SCH ×2 (09:45→21:40)
[2018-06-15] MEDS: ROFLUMILAST 500 MCG TABLET PO SCH (09:45)
[2018-06-15] MEDS: ASPIRIN 81 MG TABLET, ENT COATED PO SCH (09:45)
[2018-06-15] MEDS: MULTIVITAMIN TABLET PO SCH (09:45)
[2018-06-15] MEDS: CEFTRIAXONE 2 GM/D5W RTU 2 GM/50 ML RTUPB IV SCH (09:45)
[2018-06-15] MEDS: TOLTERODINE TARTRATE 1 MG TABLET PO SCH ×2 (09:45→21:39)
[2018-06-15] MEDS: OXYCODONE HCL IR 5 MG TABLET PO PRN ×2 (09:46→21:39)
[2018-06-15] MEDS: LISINOPRIL 5 MG TABLET PO SCH (12:54)
[2018-06-15] MEDS: SPIRONOLACTONE 25 MG TABLET PO SCH (12:55)
--- NOTE | 2018-06-15 14:35 | PDOC PROGRESS REPORT ---
Subjective Progress Note for:: 06/15/18 Subjective:: The patient states that since last night she has felt that her breathing is worse. She states that she feels a tightness in her low abdomen that makes it hard for her to breath. She had been feeling better prior to this. Reason For Visit: ACUTE RESPIRATORY FAILURE, COPD ACUTE EXACERBATION Physical Exam Vital Signs: Temp Pulse Resp BP Pulse Ox 98.7 F 107 H 20 147/62 H 92 06/15/18 11:26 06/15/18 12:03 06/15/18 12:03 06/15/18 11:26 06/15/18 12:03 Intake & Output 06/14/18 06/15/18 06/16/18 06:59 06:59 06:59 Intake Total 1094 2947 1235 Balance 1094 2947 1235 Weight 62.6 kg 66 kg General appearance: PRESENT: mild distress, well-developed, well-nourished Respiratory exam: PRESENT: rhonchi, wheezes, other - Positive for increased work of breathing. No tactile fremitus.. ABSENT: rales Cardiovascular exam: PRESENT: RRR, other - No lateral PMI. No thrills.. ABSENT : gallop, rubs, systolic murmur Pulses: PRESENT: normal dorsalis pedis pul GI/Abdominal exam: PRESENT: normal bowel sounds, soft. ABSENT: hernia, mass, tenderness Extremities exam: ABSENT: clubbing, tenderness, +1 edema Musculoskeletal exam: PRESENT: normal inspection. ABSENT: deformity, dislocation Neurological exam: PRESENT: alert, awake, oriented to person, oriented to place , oriented to time, oriented to situation, CN II-XII grossly intact. ABSENT: motor sensory deficit Psychiatric exam: PRESENT: appropriate affect, normal mood Skin exam: PRESENT: dry, intact, warm Results Laboratory Results: 06/15/18 04:34 06/15/18 04:34 06/15/18 06/15/18 04:34 04:34 WBC 18.2 H RBC 3.49 L Hgb 9.6 L Hct 30.0 L MCV 86 MCH 27.4 MCHC 31.9 L RDW 16.0 H Plt Count 308 Seg Neutrophils % 92.6 H Lymphocytes % 5.6 L Monocytes % 1.8 L Eosinophils % 0.0 Basophils % 0.0 Absolute Neutrophils 16.8 H Absolute Lymphocytes 1.0 Absolute Monocytes 0.3 Absolute Eosinophils 0.0 Absolute Basophils 0.0 Sodium 142.4 Potassium 4.4 Chloride 103 Carbon Dioxide 33 H Anion Gap 6 BUN 21 H Creatinine 0.62 Est GFR ( Amer) > 60 Est GFR (Non-Af Amer) > 60 Glucose 122 H Calcium 8.9 06/14/18 06:15 Sputum Gram Stain - Final 06/14/18 06:15 Sputum Sputum Culture - Final Impressions: Chest X-Ray 06/12/18 18:29 IMPRESSION: NO ACUTE RADIOGRAPHIC FINDING IN THE CHEST. Assessment & Plan - Diagnosis (1) Acute and chronic respiratory failure ([id number]) Qualifiers: Respiratory failure complication: hypoxia and hypercapnia Qualified Code(s) : J96.21 - Acute and chronic respiratory failure with hypoxia; J96.22 - Acute and chronic respiratory failure with hypercapnia; J96.22 - Acute and chronic respiratory failure with hypercapnia; J96.22 - Acute and chronic respiratory failure with hypercapnia Is this a current diagnosis for this admission?: Yes Plan: The patient is having increased chest tightness and shortness of breath. She is saturating in the 90's on 3L. She is on 2L at rest at baseline. Increased wheezes and rhonchi today. (2) Hypertension Qualifiers: Hypertension type: essential hypertension Qualified Code(s): I10 - Essential (primary) hypertension Is this a current diagnosis for this admission?: Yes (3) Anemia Qualifiers: Anemia type: unspecified type Qualified Code(s): D64.9 - Anemia, unspecified Is this a current diagnosis for this admission?: Yes Plan: Monitor H&H and transfuse as necessary. (4) Atrial fibrillation with rapid ventricular response Is this a current diagnosis for this admission?: Yes Plan: Currently Sinus arrhythmia. Monitor. On metoprolol. (5) COPD exacerbation Is this a current diagnosis for this admission?: Yes Plan: Nebs and steroids. Wean steroids. (6) Chronic systolic (congestive) heart failure Is this a current diagnosis for this admission?: Yes Plan: Monitor volume status. (7) Coronary artery disease Qualifiers: Coronary Disease-Associated Artery/Lesion type: [place] artery [place] vs. transplanted heart: [place] heart Associated angina: without angina Qualified Code(s): I25.10 - Atherosclerotic heart disease of [place] coronary artery without angina pectoris Is this a current diagnosis for this admission?: Yes Plan: Noted. Continue home medications. - Time Time Spent with patient: 25-34 minutes Medications reviewed and adjusted accordingly: Yes
[2018-06-15] MEDS ORDERED: DILTIAZEM HCL INJ 25 MG/5 ML VIAL ONE (18:04)
[2018-06-15] MEDS ORDERED: DILTIAZEM HCL/D5W 125 MG/125 ML RTUINJ IV PRN (18:25)
[2018-06-15] MEDS: PRAMIPEXOLE DI-HCL 0.25 MG TABLET PO SCH (21:39)
[2018-06-15] MEDS: MONTELUKAST SODIUM 10 MG TABLET PO SCH (21:39)
--- NOTE | 2018-06-16 00:07 | EKG REPORT ---
SEVERITY:- ABNORMAL ECG - ATRIAL FIBRILLATION, V-RATE 85-152 CONSIDER ANTEROSEPTAL INFARCT : Confirmed by: Susan Ho MD 16-Jun-2018 00:06:31
[2018-06-16] MEDS: NORMAL SALINE 1000 ML 1,000 ML IV PRN ×3 (00:14→21:41)
[2018-06-16] MEDS ORDERED: DILTIAZEM HCL 30 MG TABLET PO ONE (03:00)
[2018-06-16] MEDS: METHYLPREDNISOLONE INJ 125 MG/2 ML SDV IV SCH ×3 (05:45→21:25)
[2018-06-16] MEDS: LANSOPRAZOLE 30 MG TAB.RAP.DR PO SCH (05:45)
[2018-06-16] MEDS: BUDESONIDE NEB 0.5 MG/2 ML AMPUL NEB SCH ×2 (08:04→20:31)
[2018-06-16] MEDS: IPRATROPIUM/ALBUTEROL 0.5-2.5 MG/3 ML AMPUL NEB SCH (08:04)
[2018-06-16] MEDS: MULTIVITAMIN TABLET PO SCH (09:43)
[2018-06-16] MEDS: ASPIRIN 81 MG TABLET, ENT COATED PO SCH (09:44)
[2018-06-16] MEDS: ROFLUMILAST 500 MCG TABLET PO SCH (09:44)
[2018-06-16] MEDS: OLANZAPINE 2.5 MG TABLET PO SCH (09:44)
[2018-06-16] MEDS: METOPROLOL SUCCINATE 25 MG TAB.SR.24H PO SCH ×2 (09:44→21:21)
[2018-06-16] MEDS: TOLTERODINE TARTRATE 1 MG TABLET PO SCH ×2 (09:44→21:23)
[2018-06-16] MEDS: CEFTRIAXONE 2 GM/D5W RTU 2 GM/50 ML RTUPB IV SCH (09:46)
[2018-06-16] MEDS: FLUTICASONE NASAL SPRAY 50 MCG/SPRY 120 SPRAY/16 GM NAREB SCH ×2 (09:47→21:25)
[2018-06-16] MEDS: ENOXAPARIN SODIUM INJ 80 MG/0.8 ML DISP.SYRIN SUBCUT SCH ×2 (10:11→21:24)
[2018-06-16] MEDS: DILTIAZEM HCL 30 MG TABLET PO SCH ×3 (11:57→23:14)
[2018-06-16] MEDS: SPIRONOLACTONE 25 MG TABLET PO SCH (11:58)
[2018-06-16] MEDS: LISINOPRIL 5 MG TABLET PO SCH (11:58)
[2018-06-16] MEDS ORDERED: DILTIAZEM HCL 30 MG TABLET PO SCH (12:00)
[2018-06-16] MEDS: OXYCODONE HCL IR 5 MG TABLET PO PRN ×2 (12:54→21:22)
[2018-06-16] MEDS: LEVALBUTEROL HCL NEB 1.25 MG/3 ML AMPUL NEB SCH ×2 (13:47→20:31)
--- NOTE | 2018-06-16 16:56 | PDOC PROGRESS REPORT ---
Subjective Progress Note for:: 06/16/18 Subjective:: The patient states that she thinks that she has had AF previously when she received bronchodilators for COPD exacerbation. she also thought that she was on diltiazem before. It was not included on her prior to admission medications. No new complaints. Reason For Visit: ACUTE RESPIRATORY FAILURE, COPD ACUTE EXACERBATION Physical Exam Vital Signs: Temp Pulse Resp BP Pulse Ox 97.9 F 66 16 141/56 H 98 06/16/18 11:25 06/16/18 14:00 06/16/18 13:47 06/16/18 11:25 06/16/18 13:47 Intake & Output 06/15/18 06/16/18 06/17/18 06:59 06:59 06:59 Intake Total 2947 3209 1000 Balance 2947 3209 1000 Weight 66 kg 67.9 kg General appearance: PRESENT: no acute distress, cooperative Respiratory exam: PRESENT: other - No increased wor of breathing. No wheezes rales or rhonchi. No tactile fremitus. Cardiovascular exam: PRESENT: irregular rhythm, other. ABSENT: gallop, rubs, systolic murmur Pulses: PRESENT: normal dorsalis pedis pul GI/Abdominal exam: PRESENT: normal bowel sounds, soft. ABSENT: hernia, mass, organolmegaly, tenderness Extremities exam: ABSENT: calf tenderness, joint swelling, tenderness Musculoskeletal exam: ABSENT: deformity, dislocation, normal inspection Neurological exam: PRESENT: alert, awake, oriented to person, oriented to place , oriented to time, oriented to situation, CN II-XII grossly intact. ABSENT: motor sensory deficit Psychiatric exam: PRESENT: appropriate affect, normal mood Skin exam: PRESENT: dry, intact, warm Results Laboratory Results: 06/15/18 04:34 06/15/18 04:34 Impressions: Chest X-Ray 06/12/18 18:29 IMPRESSION: NO ACUTE RADIOGRAPHIC FINDING IN THE CHEST. Assessment & Plan - Diagnosis (1) Acute and chronic respiratory failure ([id number]) Qualifiers: Respiratory failure complication: hypoxia and hypercapnia Qualified Code(s) : J96.21 - Acute and chronic respiratory failure with hypoxia; J96.22 - Acute and chronic respiratory failure with hypercapnia; J96.22 - Acute and chronic respiratory failure with hypercapnia; J96.22 - Acute and chronic respiratory failure with hypercapnia Is this a current diagnosis for this admission?: Yes Plan: Nebulizers and steroids. Breathing feels better today per patient. (2) Hypertension Qualifiers: Hypertension type: essential hypertension Qualified Code(s): I10 - Essential (primary) hypertension Is this a current diagnosis for this admission?: Yes Plan: Continue home medications. Fair control. (3) Anemia Qualifiers: Anemia type: unspecified type Qualified Code(s): D64.9 - Anemia, unspecified Is this a current diagnosis for this admission?: Yes (4) Atrial fibrillation with rapid ventricular response Is this a current diagnosis for this admission?: Yes Plan: The patient was placed on diltiazem gtt last night due to atrial fibrillation with RVR. This morning she has been converted to PO diltiazem. I have also changed her bronchodilator from albuterol to xopenex as the patient states that she thinks that her breathing treatment has put her into atrial fibrillation in the past. Lovenox for anticoagulation. (5) COPD exacerbation Is this a current diagnosis for this admission?: Yes Plan: Nebs and steroids. Wean steroids. (6) Chronic systolic (congestive) heart failure Is this a current diagnosis for this admission?: Yes Plan: Monitor volume status. (7) Coronary artery disease Qualifiers: Coronary Disease-Associated Artery/Lesion type: [place] artery [place] vs. transplanted heart: [place] heart Associated angina: without angina Qualified Code(s): I25.10 - Atherosclerotic heart disease of [place] coronary artery without angina pectoris Is this a current diagnosis for this admission?: Yes Plan: Noted. Continue home medications. - Time Time Spent with patient: 35 or more minutes Medications reviewed and adjusted accordingly: Yes
[2018-06-16] MEDS: ZOLPIDEM TARTRATE 5 MG TABLET PO PRN (21:23)
[2018-06-16] MEDS: MONTELUKAST SODIUM 10 MG TABLET PO SCH (21:24)
[2018-06-16] MEDS: PRAMIPEXOLE DI-HCL 0.25 MG TABLET PO SCH (21:24)
[2018-06-17] MEDS: LEVALBUTEROL HCL NEB 1.25 MG/3 ML AMPUL NEB SCH ×4 (01:12→19:45)
[2018-06-17] MEDS: METHYLPREDNISOLONE INJ 125 MG/2 ML SDV IV SCH ×3 (05:26→21:36)
[2018-06-17] MEDS: LANSOPRAZOLE 30 MG TAB.RAP.DR PO SCH (05:27)
[2018-06-17] MEDS: DILTIAZEM HCL 30 MG TABLET PO SCH ×3 (05:28→21:26)
[2018-06-17] MEDS: NORMAL SALINE 1000 ML 1,000 ML IV PRN (07:58)
[2018-06-17] MEDS: BUDESONIDE NEB 0.5 MG/2 ML AMPUL NEB SCH ×2 (08:23→19:45)
[2018-06-17] MEDS: CEFTRIAXONE 2 GM/D5W RTU 2 GM/50 ML RTUPB IV SCH (09:50)
[2018-06-17] MEDS: ASPIRIN 81 MG TABLET, ENT COATED PO SCH (09:50)
[2018-06-17] MEDS: ROFLUMILAST 500 MCG TABLET PO SCH (09:50)
[2018-06-17] MEDS: OLANZAPINE 2.5 MG TABLET PO SCH (09:50)
[2018-06-17] MEDS: TOLTERODINE TARTRATE 1 MG TABLET PO SCH ×2 (09:50→21:35)
[2018-06-17] MEDS: MULTIVITAMIN TABLET PO SCH (09:50)
[2018-06-17] MEDS: ENOXAPARIN SODIUM INJ 80 MG/0.8 ML DISP.SYRIN SUBCUT SCH ×2 (09:51→21:36)
[2018-06-17] MEDS: METOPROLOL SUCCINATE 25 MG TAB.SR.24H PO SCH ×2 (09:51→21:35)
[2018-06-17] MEDS: FLUTICASONE NASAL SPRAY 50 MCG/SPRY 120 SPRAY/16 GM NAREB SCH ×2 (09:51→21:36)
[2018-06-17] MEDS: SPIRONOLACTONE 25 MG TABLET PO SCH (11:56)
[2018-06-17] MEDS: OXYCODONE HCL IR 5 MG TABLET PO PRN ×2 (11:56→21:34)
[2018-06-17] MEDS: LISINOPRIL 5 MG TABLET PO SCH (11:56)
--- NOTE | 2018-06-17 13:40 | PDOC PROGRESS REPORT ---
Subjective Progress Note for:: 06/17/18 Subjective:: The patient is resting comfortably. No new complaints. Reason For Visit: ACUTE RESPIRATORY FAILURE, COPD ACUTE EXACERBATION Physical Exam Vital Signs: Temp Pulse Resp BP Pulse Ox 99.0 F 71 16 128/53 H 97 06/17/18 11:51 06/17/18 11:51 06/17/18 11:51 06/17/18 11:51 06/17/18 11:51 Intake & Output 06/16/18 06/17/18 06/18/18 06:59 06:59 06:59 Intake Total 3209 3442 1250 Balance 3209 3442 1250 Weight 67.9 kg 70.3 kg General appearance: PRESENT: no acute distress, cooperative, other - The patient is elderly, weak, and frail. Respiratory exam: PRESENT: other - No increased work of breathing. Lung sounds are diminished bilaterally. No wheezes, rales, or rhonchi are appreciated. Cardiovascular exam: PRESENT: RRR, other - No lateral PMI. No thrills.. ABSENT : gallop, rubs, systolic murmur Pulses: PRESENT: other - Diminished distal pulses. GI/Abdominal exam: PRESENT: normal bowel sounds, soft. ABSENT: hernia, mass, organolmegaly, tenderness Extremities exam: ABSENT: clubbing, pedal edema, tenderness Musculoskeletal exam: PRESENT: normal inspection. ABSENT: deformity, dislocation, tenderness Neurological exam: PRESENT: alert, awake, oriented to person, oriented to place , oriented to time, oriented to situation, CN II-XII grossly intact. ABSENT: motor sensory deficit Psychiatric exam: PRESENT: appropriate affect, normal mood Skin exam: PRESENT: dry, intact, warm Results Laboratory Results: 06/15/18 04:34 06/15/18 04:34 Impressions: Chest X-Ray 06/12/18 18:29 IMPRESSION: NO ACUTE RADIOGRAPHIC FINDING IN THE CHEST. Assessment & Plan - Diagnosis (1) Acute and chronic respiratory failure ([id number]) Qualifiers: Respiratory failure complication: hypoxia and hypercapnia Qualified Code(s) : J96.21 - Acute and chronic respiratory failure with hypoxia; J96.22 - Acute and chronic respiratory failure with hypercapnia; J96.22 - Acute and chronic respiratory failure with hypercapnia; J96.22 - Acute and chronic respiratory failure with hypercapnia Is this a current diagnosis for this admission?: Yes Plan: Nebulizers and steroids. Breathing feels better today per patient. (2) Hypertension Qualifiers: Hypertension type: essential hypertension Qualified Code(s): I10 - Essential (primary) hypertension Is this a current diagnosis for this admission?: Yes Plan: Continue home medications. Fair control. (3) Anemia Qualifiers: Anemia type: unspecified type Qualified Code(s): D64.9 - Anemia, unspecified Is this a current diagnosis for this admission?: Yes Plan: Monitor H&H and transfuse as necessary. (4) Atrial fibrillation with rapid ventricular response Is this a current diagnosis for this admission?: Yes Plan: The patient has been converted to oral diltiazem. She has also been changed over from albuterol to xopenex. She is receiving anticoagulation. (5) COPD exacerbation Is this a current diagnosis for this admission?: Yes Plan: Nebs and steroids. Wean steroids. Receiving xopenex. (6) Chronic systolic (congestive) heart failure Is this a current diagnosis for this admission?: Yes Plan: Monitor volume status. Stable. (7) Coronary artery disease Qualifiers: Coronary Disease-Associated Artery/Lesion type: [place] artery [place] vs. transplanted heart: [place] heart Associated angina: without angina Qualified Code(s): I25.10 - Atherosclerotic heart disease of [place] coronary artery without angina pectoris Is this a current diagnosis for this admission?: Yes Plan: Noted. Continue home medications. - Time Time Spent with patient: 25-34 minutes Medications reviewed and adjusted accordingly: Yes
--- NOTE | 2018-06-17 18:19 | PDOC PROGRESS REPORT ---
Subjective Progress Note for:: 06/14/18 Subjective:: Improved over the last 24 hours Reason For Visit: ACUTE RESPIRATORY FAILURE, COPD ACUTE EXACERBATION Physical Exam Vital Signs: Temp Pulse Resp BP Pulse Ox 98.1 F 94 26 H 125/54 L 96 06/14/18 15:14 06/14/18 15:14 06/14/18 15:14 06/14/18 15:14 06/14/18 15:14 Intake & Output 06/13/18 06/14/18 06/15/18 06:59 06:59 06:59 Intake Total 1094 1166 Balance 1094 1166 Weight 62.6 kg General appearance: PRESENT: no acute distress, cooperative, disheveled, obese Head exam: PRESENT: atraumatic, normocephalic Eye exam: PRESENT: conjunctiva pale, EOMI. ABSENT: nystagmus, periorbital swelling, scleral icterus Mouth exam: PRESENT: dry mucosa, neck supple, tongue midline Neck exam: ABSENT: carotid bruit, JVD, lymphadenopathy, thyromegaly, tracheal deviation, tracheostomy Respiratory exam: PRESENT: decreased breath sounds, prolonged expiratory phas, rales, rhonchi, unlabored. ABSENT: retraction Cardiovascular exam: PRESENT: RRR, +S1, +S2 Pulses: PRESENT: normal radial pulses GI/Abdominal exam: PRESENT: hypoactive bowel sounds, soft. ABSENT: tenderness Extremities exam: ABSENT: calf tenderness, clubbing, joint swelling Musculoskeletal exam: ABSENT: deformity, dislocation Neurological exam: PRESENT: alert, awake Psychiatric exam: PRESENT: flat affect Skin exam: PRESENT: dry, warm Results Laboratory Results: 06/14/18 04:33 06/14/18 04:33 06/14/18 06/14/18 06/14/18 04:33 04:33 08:25 WBC 16.7 H RBC 3.55 L Hgb 9.6 L Hct 30.2 L MCV 85 MCH 27.0 MCHC 31.7 L RDW 15.7 H Plt Count 298 Seg Neutrophils % 92.1 H Lymphocytes % 5.7 L Monocytes % 2.1 L Eosinophils % 0.0 Basophils % 0.1 Absolute Neutrophils 15.4 H Absolute Lymphocytes 1.0 Absolute Monocytes 0.3 Absolute Eosinophils 0.0 Absolute Basophils 0.0 Carbonic Acid 1.85 H HCO3/H2CO3 Ratio 18:1 ABG pH 7.36 ABG pCO2 61.3 H ABG pO2 97.3 ABG HCO3 33.6 H ABG O2 Saturation 97.0 ABG Base Excess 6.7 FiO2 3L Sodium 140.9 Potassium 4.3 Chloride 99 Carbon Dioxide 36 H Anion Gap 6 BUN 16 Creatinine 0.63 Est GFR ( Amer) > 60 Est GFR (Non-Af Amer) > 60 Glucose 153 H Calcium 8.7 Impressions: Chest X-Ray 06/12/18 18:29 IMPRESSION: NO ACUTE RADIOGRAPHIC FINDING IN THE CHEST. Assessment & Plan - Diagnosis (1) Acute and chronic respiratory failure ([id number]) Qualifiers: Respiratory failure complication: hypoxia and hypercapnia Qualified Code(s) : J96.21 - Acute and chronic respiratory failure with hypoxia; J96.22 - Acute and chronic respiratory failure with hypercapnia; J96.22 - Acute and chronic respiratory failure with hypercapnia; J96.22 - Acute and chronic respiratory failure with hypercapnia Is this a current diagnosis for this admission?: Yes Plan: Using noninvasive positive pressure ventilation Patient improvinge (2) Hypertension Qualifiers: Hypertension type: essential hypertension Qualified Code(s): I10 - Essential (primary) hypertension Is this a current diagnosis for this admission?: Yes (3) Atrial fibrillation with rapid ventricular response Is this a current diagnosis for this admission?: Yes Plan: Stable at this time (4) GERD (gastroesophageal reflux disease) Qualifiers: Esophagitis presence: without esophagitis Qualified Code(s): K21.9 - Gastro -esophageal reflux disease without esophagitis Is this a current diagnosis for this admission?: Yes Plan: ppi (5) Tobacco abuse Is this a current diagnosis for this admission?: Yes
--- NOTE | 2018-06-17 18:22 | PDOC PROGRESS REPORT ---
Subjective Progress Note for:: 06/15/18 Subjective:: Improved over the last 24 hours Reason For Visit: ACUTE RESPIRATORY FAILURE, COPD ACUTE EXACERBATION Physical Exam Vital Signs: Temp Pulse Resp BP Pulse Ox 99.0 F 82 18 128/53 H 94 06/17/18 11:51 06/17/18 14:14 06/17/18 14:14 06/17/18 11:51 06/17/18 14:14 Intake & Output 06/16/18 06/17/18 06/18/18 06:59 06:59 06:59 Intake Total 3209 3442 1250 Balance 3209 3442 1250 Weight 67.9 kg 70.3 kg General appearance: PRESENT: no acute distress, cooperative, disheveled Head exam: PRESENT: atraumatic, normocephalic Eye exam: PRESENT: conjunctiva pale, EOMI. ABSENT: nystagmus, periorbital swelling, scleral icterus Mouth exam: PRESENT: moist, neck supple, tongue midline Neck exam: ABSENT: carotid bruit, JVD, lymphadenopathy, thyromegaly, tracheal deviation, tracheostomy Respiratory exam: PRESENT: decreased breath sounds, prolonged expiratory phas, rales, rhonchi, unlabored. ABSENT: retraction, stridor Cardiovascular exam: PRESENT: RRR, +S1, +S2 Pulses: PRESENT: normal radial pulses GI/Abdominal exam: PRESENT: normal bowel sounds, soft. ABSENT: tenderness Extremities exam: ABSENT: calf tenderness, clubbing, joint swelling Musculoskeletal exam: ABSENT: deformity, dislocation Neurological exam: PRESENT: alert, awake Psychiatric exam: PRESENT: normal mood Skin exam: PRESENT: dry, warm Results Laboratory Results: 06/15/18 04:34 06/15/18 04:34 Impressions: Chest X-Ray 06/12/18 18:29 IMPRESSION: NO ACUTE RADIOGRAPHIC FINDING IN THE CHEST. Assessment & Plan - Diagnosis (1) Acute and chronic respiratory failure ([id number]) Qualifiers: Respiratory failure complication: hypoxia and hypercapnia Qualified Code(s) : J96.21 - Acute and chronic respiratory failure with hypoxia; J96.22 - Acute and chronic respiratory failure with hypercapnia; J96.22 - Acute and chronic respiratory failure with hypercapnia; J96.22 - Acute and chronic respiratory failure with hypercapnia Is this a current diagnosis for this admission?: Yes Plan: Patient improving (2) Hypertension Qualifiers: Hypertension type: essential hypertension Qualified Code(s): I10 - Essential (primary) hypertension Is this a current diagnosis for this admission?: Yes (3) Atrial fibrillation with rapid ventricular response Is this a current diagnosis for this admission?: Yes Plan: Stable at this time (4) GERD (gastroesophageal reflux disease) Qualifiers: Esophagitis presence: without esophagitis Qualified Code(s): K21.9 - Gastro -esophageal reflux disease without esophagitis Is this a current diagnosis for this admission?: Yes Plan: ppi (5) Tobacco abuse Is this a current diagnosis for this admission?: Yes
[2018-06-17] MEDS: ZOLPIDEM TARTRATE 5 MG TABLET PO PRN (21:33)
[2018-06-17] MEDS: MONTELUKAST SODIUM 10 MG TABLET PO SCH (21:34)
[2018-06-17] MEDS: PRAMIPEXOLE DI-HCL 0.25 MG TABLET PO SCH (21:35)
[2018-06-18] MEDS: DILTIAZEM HCL 30 MG TABLET PO SCH ×5 (00:50→23:35)
[2018-06-18] MEDS: LEVALBUTEROL HCL NEB 1.25 MG/3 ML AMPUL NEB SCH ×4 (02:34→19:32)
[2018-06-18] MEDS: METHYLPREDNISOLONE INJ 125 MG/2 ML SDV IV SCH ×3 (05:32→21:26)
[2018-06-18 05:34] LABS: HEMATOCRIT 33.3 % (36.0-47.0); HEMOGLOBIN 10.1 g/dL (12.0-15.5); MEAN CORPUSCULAR HEMOGLOBIN 26.7 pg (27.0-33.4); MEAN CORPUSCULAR HGB CONC 30.3 g/dL (32.0-36.0); MEAN CORPUSCULAR VOLUME 88 fl (80-97); PLATELET COUNT 313 10^3/uL (150-450); RED BLOOD COUNT 3.78 10^6/uL (3.72-5.28); RED CELL DISTRIBUTION WIDTH 16.7 % (11.5-14.0); WHITE BLOOD COUNT 16.9 10^3/uL (4.0-10.5)
[2018-06-18] MEDS: LANSOPRAZOLE 30 MG TAB.RAP.DR PO SCH (05:34)
[2018-06-18] MEDS: BUDESONIDE NEB 0.5 MG/2 ML AMPUL NEB SCH ×2 (08:19→19:32)
[2018-06-18] MEDS: TOLTERODINE TARTRATE 1 MG TABLET PO SCH ×2 (10:22→21:26)
[2018-06-18] MEDS: ASPIRIN 81 MG TABLET, ENT COATED PO SCH (10:22)
[2018-06-18] MEDS: ROFLUMILAST 500 MCG TABLET PO SCH (10:22)
[2018-06-18] MEDS: FLUTICASONE NASAL SPRAY 50 MCG/SPRY 120 SPRAY/16 GM NAREB SCH ×2 (10:23→21:26)
[2018-06-18] MEDS: ENOXAPARIN SODIUM INJ 80 MG/0.8 ML DISP.SYRIN SUBCUT SCH (10:24)
[2018-06-18] MEDS: LISINOPRIL 5 MG TABLET PO SCH (10:28)
[2018-06-18] MEDS: MULTIVITAMIN TABLET PO SCH (10:28)
[2018-06-18] MEDS: METOPROLOL SUCCINATE 25 MG TAB.SR.24H PO SCH ×2 (10:28→21:25)
[2018-06-18] MEDS: OLANZAPINE 2.5 MG TABLET PO SCH (10:28)
[2018-06-18] MEDS: CEFTRIAXONE SODIUM 2,000 MG in NORMAL SALINE 100 ML IV SCH (11:15)
[2018-06-18] MEDS: SPIRONOLACTONE 25 MG TABLET PO SCH (12:21)
--- NOTE | 2018-06-18 17:05 | PDOC PROGRESS REPORT ---
Subjective Progress Note for:: 06/18/18 Subjective:: The patient is at her baseline O2 requirements, but she states that she feels that she is still too sick to go home. She states that she wants to go home with her daughters, but can't do it until tomorrow. Reason For Visit: ACUTE RESPIRATORY FAILURE, COPD ACUTE EXACERBATION Physical Exam Vital Signs: Temp Pulse Resp BP Pulse Ox 98.2 F 77 15 152/65 H 97 06/18/18 11:38 06/18/18 14:03 06/18/18 14:03 06/18/18 11:38 06/18/18 14:03 Intake & Output 06/17/18 06/18/18 06/19/18 06:59 06:59 06:59 Intake Total 3442 2789 100 Balance 3442 2789 100 Weight 70.3 kg 71.7 kg General appearance: PRESENT: no acute distress, cooperative, other Respiratory exam: PRESENT: wheezes, other - No increased work of breathing. No wheezes, rales, or rhonchi.. ABSENT: rales, rhonchi Cardiovascular exam: PRESENT: other GI/Abdominal exam: PRESENT: normal bowel sounds, soft. ABSENT: hernia, mass, organolmegaly, tenderness Rectal exam: PRESENT: deferred Extremities exam: PRESENT: tenderness. ABSENT: full ROM, +1 edema Neurological exam: PRESENT: alert, awake, oriented to person, oriented to place Skin exam: PRESENT: dry, intact, warm Results Laboratory Results: 06/18/18 04:38 06/15/18 04:34 06/18/18 04:38 WBC 16.9 H RBC 3.78 Hgb 10.1 L Hct 33.3 L MCV 88 MCH 26.7 L MCHC 30.3 L RDW 16.7 H Plt Count 313 Impressions: Chest X-Ray 06/12/18 18:29 IMPRESSION: NO ACUTE RADIOGRAPHIC FINDING IN THE CHEST. Assessment & Plan - Diagnosis (1) Acute and chronic respiratory failure ([id number]) Qualifiers: Respiratory failure complication: hypoxia and hypercapnia Qualified Code(s) : J96.21 - Acute and chronic respiratory failure with hypoxia; J96.22 - Acute and chronic respiratory failure with hypercapnia; J96.22 - Acute and chronic respiratory failure with hypercapnia; J96.22 - Acute and chronic respiratory failure with hypercapnia Is this a current diagnosis for this admission?: Yes Plan: Nebulizers and steroids. The patient is at baseline O2 requirements. Likely home with [facility] and home health tomorrow. (2) Hypertension Qualifiers: Hypertension type: essential hypertension Qualified Code(s): I10 - Essential (primary) hypertension Is this a current diagnosis for this admission?: Yes (3) Anemia Qualifiers: Anemia type: unspecified type Qualified Code(s): D64.9 - Anemia, unspecified Is this a current diagnosis for this admission?: Yes (4) Atrial fibrillation with rapid ventricular response Is this a current diagnosis for this admission?: Yes Plan: The patient has been converted to oral diltiazem. Change to CD formulation. (5) COPD exacerbation Is this a current diagnosis for this admission?: Yes Plan: Nebs and steroids. Wean steroids. Receiving xopenex. (6) Chronic systolic (congestive) heart failure Is this a current diagnosis for this admission?: Yes Plan: Monitor volume status. Stable. (7) Coronary artery disease Qualifiers: Coronary Disease-Associated Artery/Lesion type: [place] artery [place] vs. transplanted heart: [place] heart Associated angina: without angina Qualified Code(s): I25.10 - Atherosclerotic heart disease of [place] coronary artery without angina pectoris Is this a current diagnosis for this admission?: Yes Plan: Noted. Continue home medications. - Time Time Spent with patient: 25-34 minutes Anticipated discharge: Home with Homehealth Within: within 24 hours
[2018-06-18] MEDS: APIXABAN 2.5 MG TABLET PO SCH (18:12)
[2018-06-18] MEDS: MONTELUKAST SODIUM 10 MG TABLET PO SCH (21:25)
[2018-06-18] MEDS: PRAMIPEXOLE DI-HCL 0.25 MG TABLET PO SCH (21:26)
[2018-06-19] MEDS: LEVALBUTEROL HCL NEB 1.25 MG/3 ML AMPUL NEB SCH ×4 (01:52→19:56)
[2018-06-19] MEDS: DILTIAZEM HCL 30 MG TABLET PO SCH ×3 (05:36→17:31)
[2018-06-19] MEDS: OXYCODONE HCL IR 5 MG TABLET PO PRN (05:38)
[2018-06-19] MEDS: LANSOPRAZOLE 30 MG TAB.RAP.DR PO SCH (05:39)
[2018-06-19] MEDS: METHYLPREDNISOLONE INJ 125 MG/2 ML SDV IV SCH (05:39)
[2018-06-19] MEDS: BUDESONIDE NEB 0.5 MG/2 ML AMPUL NEB SCH ×2 (07:49→19:56)
[2018-06-19] MEDS: ROFLUMILAST 500 MCG TABLET PO SCH (10:27)
[2018-06-19] MEDS: TOLTERODINE TARTRATE 1 MG TABLET PO SCH ×2 (10:27→22:00)
[2018-06-19] MEDS: ASPIRIN 81 MG TABLET, ENT COATED PO SCH (10:27)
[2018-06-19] MEDS: APIXABAN 2.5 MG TABLET PO SCH ×2 (10:27→17:31)
[2018-06-19] MEDS: FLUTICASONE NASAL SPRAY 50 MCG/SPRY 120 SPRAY/16 GM NAREB SCH ×2 (10:28→21:59)
[2018-06-19] MEDS: MULTIVITAMIN TABLET PO SCH (10:29)
[2018-06-19] MEDS: METOPROLOL SUCCINATE 25 MG TAB.SR.24H PO SCH ×2 (10:29→22:00)
[2018-06-19] MEDS: CEFTRIAXONE SODIUM 2,000 MG in NORMAL SALINE 100 ML IV SCH (10:29)
[2018-06-19] MEDS: LISINOPRIL 5 MG TABLET PO SCH (10:30)
[2018-06-19] MEDS: OLANZAPINE 2.5 MG TABLET PO SCH (10:30)
[2018-06-19] MEDS ORDERED: METHYLPREDNISOLONE INJ 125 MG/2 ML SDV IV SCH (10:45)
--- NOTE | 2018-06-19 11:22 | RADIOLOGY REPORT (SQ) ---
EXAM DESCRIPTION: CHEST SINGLE VIEW COMPLETED DATE/TIME: 06/19/2018 10:54 am REASON FOR STUDY: pna COMPARISON: CT chest 12/02/2016 Chest films 03/25/2017, 05/17/2017 EXAM PARAMETERS: NUMBER OF VIEWS: One view. TECHNIQUE: Single frontal radiographic view of the chest acquired. RADIATION DOSE: NA LIMITATIONS: None. FINDINGS: LUNGS AND PLEURA: Minimal bibasilar airspace disease likely atelectasis. Pneumonia could not be excluded. No pleural effusions. No pneumothorax. No worrisome pulmonary nodules MEDIASTINUM AND HILAR STRUCTURES: No masses. Contour normal. HEART AND VASCULAR STRUCTURES: Heart normal in size. Normal vasculature. BONES: No acute findings. HARDWARE: None in the chest. OTHER: No other significant finding. IMPRESSION: Minimal bibasilar airspace disease atelectasis versus pneumonia. TECHNICAL DOCUMENTATION: JOB ID: [id number] [employer]- All Rights Reserved Reading location - IP/workstation name: [email or web address]
[2018-06-19] MEDS: SPIRONOLACTONE 25 MG TABLET PO SCH (11:50)
[2018-06-19] MEDS: METHYLPREDNISOLONE INJ 40 MG/1 ML SDV IV SCH ×2 (13:51→21:59)
--- NOTE | 2018-06-19 18:19 | PDOC PROGRESS REPORT ---
Subjective Progress Note for:: 06/19/18 Subjective:: This is 72 years old female patient presented with chief complaint of shortness of breath. Patient has underlying end-stage lung disease and she has been on oxygen 24 7. Patient admitted with a diagnosis of acute on chronic hypercarbic/hypoxic respiratory failure. She is being treated with bronchodilator, Solu-Medrol. She has also chronic systolic congestive heart failure with ejection fraction of 25%. This morning I seen patient sitting up in bed. She reports this her shortness of breath is relatively better. The only issue currently is her leukocytosis was probably related to her steroid. I tapered her prednisone from 60 mg 3 times daily to 20 mg 3 times daily. I will repeat her CBC if it is trending down, she is potential discharge for tomorrow. Reason For Visit: ACUTE RESPIRATORY FAILURE, COPD ACUTE EXACERBATION Physical Exam Vital Signs: Temp Pulse Resp BP Pulse Ox 98.7 F 80 16 150/64 H 96 06/19/18 16:35 06/19/18 16:35 06/19/18 16:35 06/19/18 16:35 06/19/18 16:35 Intake & Output 06/18/18 06/19/18 06/20/18 06:59 06:59 06:59 Intake Total 2789 1402 100 Balance 2789 1402 100 Weight 71.7 kg 70.2 kg 70.2 kg General appearance: PRESENT: mild distress Eye exam: PRESENT: conjunctiva pink Mouth exam: PRESENT: dry mucosa Neck exam: ABSENT: carotid bruit, JVD, lymphadenopathy, thyromegaly Respiratory exam: PRESENT: decreased breath sounds, rhonchi, wheezes Cardiovascular exam: PRESENT: RRR. ABSENT: diastolic murmur, rubs, systolic murmur Neurological exam: PRESENT: alert, awake, oriented to time, oriented to situation Results Laboratory Results: 06/18/18 04:38 06/15/18 04:34 Impressions: Chest X-Ray 06/19/18 00:00 IMPRESSION: Minimal bibasilar airspace disease atelectasis versus pneumonia. Assessment & Plan - Diagnosis (1) Acute and chronic respiratory failure with hypercapnia Is this a current diagnosis for this admission?: Yes Plan: Continue current regimen (2) COPD exacerbation Is this a current diagnosis for this admission?: Yes Plan: Continue current regimen (3) Atrial fibrillation with rapid ventricular response Is this a current diagnosis for this admission?: Yes Plan: Stable (4) Chronic systolic (congestive) heart failure Is this a current diagnosis for this admission?: Yes Plan: Continue Lasix, lisinopril and metoprolol succinate (5) Hypertension Qualifiers: Hypertension type: essential hypertension Qualified Code(s): I10 - Essential (primary) hypertension Is this a current diagnosis for this admission?: Yes Plan: Continue current regimen
[2018-06-19] MEDS: MONTELUKAST SODIUM 10 MG TABLET PO SCH (22:00)
[2018-06-19] MEDS: PRAMIPEXOLE DI-HCL 0.25 MG TABLET PO SCH (22:01)
[2018-06-20] MEDS: DILTIAZEM HCL 30 MG TABLET PO SCH ×4 (01:02→17:23)
[2018-06-20] MEDS: OXYCODONE HCL IR 5 MG TABLET PO PRN ×2 (01:05→17:22)
[2018-06-20] MEDS: LEVALBUTEROL HCL NEB 1.25 MG/3 ML AMPUL NEB SCH ×4 (02:27→19:59)
[2018-06-20 05:20] LABS: HEMATOCRIT 32.2 % (36.0-47.0); HEMOGLOBIN 10.4 g/dL (12.0-15.5); MEAN CORPUSCULAR HEMOGLOBIN 27.5 pg (27.0-33.4); MEAN CORPUSCULAR HGB CONC 32.2 g/dL (32.0-36.0); MEAN CORPUSCULAR VOLUME 85 fl (80-97); PLATELET COUNT 314 10^3/uL (150-450); RED BLOOD COUNT 3.78 10^6/uL (3.72-5.28); RED CELL DISTRIBUTION WIDTH 16.1 % (11.5-14.0); WHITE BLOOD COUNT 19.2 10^3/uL (4.0-10.5)
[2018-06-20] MEDS: LANSOPRAZOLE 30 MG TAB.RAP.DR PO SCH (05:22)
[2018-06-20] MEDS: METHYLPREDNISOLONE INJ 40 MG/1 ML SDV IV SCH (05:26)
[2018-06-20 05:43] LABS: BLOOD UREA NITROGEN 29 mg/dL (7-20); CALCIUM 8.5 mg/dL (8.4-10.2); CHLORIDE 93 mmol/L (98-107); GLUCOSE 134 mg/dL (75-110); POTASSIUM 3.4 mmol/L (3.6-5.0); SODIUM 141.2 mmol/L (137-145)
[2018-06-20 06:00] LABS: ANION GAP 7 (5-19)
[2018-06-20 06:02] LABS: CARBON DIOXIDE 41 mmol/L (22-30)
[2018-06-20 06:47] LABS: ARTERIAL BLOOD BASE EXCESS 17.5 mmol/L; ARTERIAL BLOOD H2CO3 2.11 mmol/L (1.05-1.35); ARTERIAL BLOOD HCO3 44.9 mmol/L (20-26); ARTERIAL BLOOD O2 SATURATION 93.2 % (94-98); ARTERIAL BLOOD PH 7.42 (7.35-7.45); ARTERIAL BLOOD TOTAL CO2 47.1 mmol/L (21-25)
[2018-06-20 06:49] LABS: ARTERIAL BLOOD FIO2 2L
[2018-06-20 06:50] LABS: ARTERIAL BLOOD PCO2 70.2 mmHg (35-45)
[2018-06-20] MEDS: BUDESONIDE NEB 0.5 MG/2 ML AMPUL NEB SCH ×2 (07:46→19:59)
[2018-06-20] MEDS ORDERED: PREDNISONE 20 MG TABLET PO SCH (10:00)
[2018-06-20] MEDS ORDERED: CEFTRIAXONE SODIUM 1,000 MG in NORMAL SALINE 50 ML IV SCH (10:00)
[2018-06-20] MEDS: ROFLUMILAST 500 MCG TABLET PO SCH (10:25)
[2018-06-20] MEDS: TOLTERODINE TARTRATE 1 MG TABLET PO SCH ×2 (10:26→21:23)
[2018-06-20] MEDS: APIXABAN 2.5 MG TABLET PO SCH ×2 (10:27→17:23)
[2018-06-20] MEDS: CEFTRIAXONE SODIUM 2,000 MG in NORMAL SALINE 100 ML IV SCH (10:27)
[2018-06-20] MEDS: METOPROLOL SUCCINATE 25 MG TAB.SR.24H PO SCH ×2 (10:27→21:23)
[2018-06-20] MEDS: FLUTICASONE NASAL SPRAY 50 MCG/SPRY 120 SPRAY/16 GM NAREB SCH ×2 (10:27→21:25)
[2018-06-20] MEDS: MULTIVITAMIN TABLET PO SCH (10:27)
[2018-06-20] MEDS: LISINOPRIL 5 MG TABLET PO SCH (10:29)
[2018-06-20] MEDS: OLANZAPINE 2.5 MG TABLET PO SCH (10:29)
[2018-06-20] MEDS: SPIRONOLACTONE 25 MG TABLET PO SCH (11:20)
[2018-06-20] MEDS ORDERED: POTASSIUM CHLORIDE 10 MEQ CAPSULE.ER PO ONE (13:00)
--- NOTE | 2018-06-20 15:10 | PDOC PROGRESS REPORT ---
Subjective Progress Note for:: 06/20/18 Subjective:: I seen patient sleeping quietly. No significant events overnight. The main issue currently with this patient is her white cell count which is climbing up despite tapering down her steroid. Today I discontinued her Solu-Medrol and switched to prednisone 30 mg p.o. daily. Reason For Visit: ACUTE RESPIRATORY FAILURE, COPD ACUTE EXACERBATION Physical Exam Vital Signs: Temp Pulse Resp BP Pulse Ox 98.1 F 87 16 149/57 H 96 06/20/18 11:11 06/20/18 14:00 06/20/18 13:44 06/20/18 11:11 06/20/18 13:44 Intake & Output 06/19/18 06/20/18 06/21/18 06:59 06:59 06:59 Intake Total 1402 1417 100 Output Total 400 Balance 1402 1017 100 Weight 70.2 kg 69.8 kg General appearance: PRESENT: mild distress Head exam: PRESENT: atraumatic Respiratory exam: PRESENT: wheezes - Mild Cardiovascular exam: PRESENT: irregular rhythm Results Laboratory Results: 06/20/18 04:56 06/20/18 04:56 06/20/18 06/20/18 06/20/18 04:56 04:56 06:25 WBC 19.2 H RBC 3.78 Hgb 10.4 L Hct 32.2 L MCV 85 MCH 27.5 MCHC 32.2 RDW 16.1 H Plt Count 314 Carbonic Acid 2.11 H HCO3/H2CO3 Ratio 21:1 ABG pH 7.42 ABG pCO2 70.2 H* ABG pO2 68.0 L ABG HCO3 44.9 H ABG O2 Saturation 93.2 L ABG Base Excess 17.5 FiO2 2L Sodium 141.2 Potassium 3.4 L Chloride 93 L Carbon Dioxide 41 H* Anion Gap 7 BUN 29 H Creatinine 0.59 Est GFR ( Amer) > 60 Est GFR (Non-Af Amer) > 60 Glucose 134 H Calcium 8.5 Impressions: Chest X-Ray 06/19/18 00:00 IMPRESSION: Minimal bibasilar airspace disease atelectasis versus pneumonia. Assessment & Plan - Diagnosis (1) Acute and chronic respiratory failure with hypercapnia Is this a current diagnosis for this admission?: Yes Plan: Continue current regimen (2) COPD exacerbation Is this a current diagnosis for this admission?: Yes Plan: Her Solu-Medrol switched to p.o. prednisone 30 mg p.o. daily. (3) Atrial fibrillation with rapid ventricular response Is this a current diagnosis for this admission?: Yes Plan: Stable (4) Chronic systolic (congestive) heart failure Is this a current diagnosis for this admission?: Yes Plan: Continue Lasix, lisinopril and metoprolol succinate (5) Hypertension Qualifiers: Hypertension type: essential hypertension Qualified Code(s): I10 - Essential (primary) hypertension Is this a current diagnosis for this admission?: Yes Plan: Continue current regimen
[2018-06-20] MEDS: MONTELUKAST SODIUM 10 MG TABLET PO SCH (21:24)
[2018-06-20] MEDS: PRAMIPEXOLE DI-HCL 0.25 MG TABLET PO SCH (21:25)
[2018-06-21] MEDS: DILTIAZEM HCL 30 MG TABLET PO SCH ×5 (00:58→23:24)
[2018-06-21] MEDS: LEVALBUTEROL HCL NEB 1.25 MG/3 ML AMPUL NEB SCH ×4 (01:25→19:51)
[2018-06-21] MEDS: LANSOPRAZOLE 30 MG TAB.RAP.DR PO SCH (05:22)
[2018-06-21 05:35] LABS: HEMATOCRIT 31.6 % (36.0-47.0); HEMOGLOBIN 10.1 g/dL (12.0-15.5); MEAN CORPUSCULAR HEMOGLOBIN 27.7 pg (27.0-33.4); MEAN CORPUSCULAR HGB CONC 32.1 g/dL (32.0-36.0); MEAN CORPUSCULAR VOLUME 86 fl (80-97); PLATELET COUNT 302 10^3/uL (150-450); RED BLOOD COUNT 3.65 10^6/uL (3.72-5.28); RED CELL DISTRIBUTION WIDTH 15.9 % (11.5-14.0); WHITE BLOOD COUNT 21.8 10^3/uL (4.0-10.5)
[2018-06-21 06:29] LABS: ABSOLUTE LYMPHOCYTES# (MANUAL) 2.8 10^3/uL (0.5-4.7); ABSOLUTE MONOCYTES # (MANUAL) 1.7 10^3/uL (0.1-1.4); ABSOLUTE NEUTROPHILS# (MANUAL) 17.2 10^3/uL (1.7-8.2); BAND NEUTROPHILS % (MANUAL) 2 % (3-5); BASOPHILS % (MANUAL) 0 % (0-2); EOSINOPHILS % (MANUAL) 0 % (0-6); LYMPHOCYTES % (MANUAL) 13 % (13-45); METAMYELOCYTES % (MANUAL) 2 % (0); MONOCYTES % (MANUAL) 8 % (3-13); SEGMENTED NEUTROPHILS % (MAN) 75 % (42-78); TOTAL CELLS COUNTED 100
[2018-06-21 06:30] LABS: ANISOCYTOSIS 1+; HYPOCHROMASIA 2+; OVALOCYTES 2+; PLATELET COMMENT ADEQUATE
[2018-06-21] MEDS: BUDESONIDE NEB 0.5 MG/2 ML AMPUL NEB SCH ×2 (07:42→19:51)
[2018-06-21] MEDS: OXYCODONE HCL IR 5 MG TABLET PO PRN ×2 (08:01→21:49)
[2018-06-21] MEDS: ROFLUMILAST 500 MCG TABLET PO SCH (09:05)
[2018-06-21] MEDS: APIXABAN 2.5 MG TABLET PO SCH ×2 (09:05→16:59)
[2018-06-21] MEDS: CEFTRIAXONE SODIUM 2,000 MG in NORMAL SALINE 100 ML IV SCH (09:05)
[2018-06-21] MEDS: MULTIVITAMIN TABLET PO SCH (09:05)
[2018-06-21] MEDS: OLANZAPINE 2.5 MG TABLET PO SCH (09:05)
[2018-06-21] MEDS: METOPROLOL SUCCINATE 25 MG TAB.SR.24H PO SCH ×2 (09:05→21:45)
[2018-06-21] MEDS: TOLTERODINE TARTRATE 1 MG TABLET PO SCH ×2 (09:05→21:44)
[2018-06-21] MEDS: FLUTICASONE NASAL SPRAY 50 MCG/SPRY 120 SPRAY/16 GM NAREB SCH ×2 (09:06→21:46)
[2018-06-21] MEDS ORDERED: PREDNISONE 20 MG TABLET PO SCH (10:00)
--- NOTE | 2018-06-21 10:30 | RADIOLOGY REPORT (SQ) ---
EXAM DESCRIPTION: CT CHEST WITHOUT COMPLETED DATE/TIME: 06/21/2018 10:06 am REASON FOR STUDY: Dyspnea COMPARISON: Chest films 06/19/2018, 06/12/2018, 12/01/2016 CT chest 12/02/2016, 03/26/2016 TECHNIQUE: CT scan performed of the chest without intravenous contrast. Images reviewed with lung, soft tissue and bone windows. Reconstructed coronal and sagittal MPR images reviewed. All images st ored on PACS. All CT scanners at this facility use dose modulation, iterative reconstruction, and/or weight based d osing when appropriate to reduce radiation dose to as low as reasonably achievable (ALARA). [facility]: Dose Right [facility]: CareDose [facility]: Dose Right [facility]: Teradose 4D [facility]: Smart Ambature RADIATION DOSE: CT Rad equipment meets quality standard of care and radiation dose reduction techniq ues were employed. CTDIvol: 7.4 mGy. DLP: 250 mGy-cm. mGy. LIMITATIONS: No technical limitations. FINDINGS: LUNGS AND PLEURA: Obstructive lung disease with enlarged airspaces throughout the upper lo bes. No worrisome pulmonary nodules. No acute infiltrates. Minimal chronic bronchiectasis and scarring in the medial aspect right middle lobe. Trace bilateral pleural effusions are present. No pneumothorax HILAR AND MEDIASTINAL STRUCTURES: No identified masses or abnormal nodes. No obvious aneurysm. HEART AND VASCULAR STRUCTURES: No thoracic aortic aneurysm. No pericardial effusion. Calcified aort ic valve, moderate coronary artery calcifications UPPER ABDOMEN: No significant findings. Limited exam. THYROID AND OTHER SOFT TISSUES: No masses. No adenopathy. BONES: Diffuse thoracic spondylotic change HARDWARE: None in the chest. OTHER: No other significant findings. IMPRESSION: Obstructive lung disease. Trace bilateral pleural effusions. TECHNICAL DOCUMENTATION: JOB ID: [id number] Quality ID # [id number]: Final reports with documentation of one or more dose reduction techniques (e.g., Au tomated exposure control, adjustment of the mA and/or kV according to patient size, use of iterative reconstruction technique) 2010 [employer]- All Rights Reserved Reading location - IP/workstation name: [email or web address]
[2018-06-21] MEDS: AZITHROMYCIN 500 MG in DEXTROSE 5%-WATER 250 ML IV SCH (10:42)
--- NOTE | 2018-06-21 12:07 | PDOC PROGRESS REPORT ---
Subjective Progress Note for:: 06/21/18 Subjective:: I seen patient resting in bed comfortably. Patient is clinically stable except for deconditioning and bilateral mild wheezing. But her WBC is a spiking up from 14,000-21,000. Stat CT done and the finding is compatible with COPD. No acute infiltration identified. Blood cultures taken and azithromycin added to her ceftriaxone. Reason For Visit: ACUTE RESPIRATORY FAILURE, COPD ACUTE EXACERBATION Physical Exam Vital Signs: Temp Pulse Resp BP Pulse Ox 98.2 F 73 18 121/47 L 93 06/21/18 10:58 06/21/18 10:58 06/21/18 10:58 06/21/18 10:58 06/21/18 10:58 Intake & Output 06/20/18 06/21/18 06/22/18 06:59 06:59 06:59 Intake Total 1417 884 100 Output Total 400 400 Balance 1017 484 100 Weight 69.8 kg 68.2 kg General appearance: PRESENT: other - Frail Head exam: PRESENT: atraumatic Eye exam: PRESENT: conjunctiva pink Mouth exam: PRESENT: moist Neck exam: ABSENT: carotid bruit, JVD, lymphadenopathy, thyromegaly Respiratory exam: PRESENT: wheezes Cardiovascular exam: PRESENT: irregular rhythm GI/Abdominal exam: PRESENT: normal bowel sounds, soft. ABSENT: distended, guarding, mass, organolmegaly, rebound, tenderness Neurological exam: PRESENT: alert, awake, oriented to time, oriented to situation Psychiatric exam: PRESENT: normal mood Results Laboratory Results: 06/21/18 05:10 06/20/18 04:56 06/21/18 05:10 WBC 21.8 H RBC 3.65 L Hgb 10.1 L Hct 31.6 L MCV 86 MCH 27.7 MCHC 32.1 RDW 15.9 H Plt Count 302 Seg Neutrophils % Not Reportable Lymphocytes % Not Reportable Monocytes % Not Reportable Eosinophils % Not Reportable Basophils % Not Reportable Absolute Neutrophils Not Reportable Absolute Lymphocytes Not Reportable Absolute Monocytes Not Reportable Absolute Eosinophils Not Reportable Absolute Basophils Not Reportable Impressions: Chest X-Ray 06/19/18 00:00 IMPRESSION: Minimal bibasilar airspace disease atelectasis versus pneumonia. Chest CT 06/21/18 00:00 IMPRESSION: Obstructive lung disease. Trace bilateral pleural effusions. Assessment & Plan - Diagnosis (1) Persistent leukocytosis Is this a current diagnosis for this admission?: Yes Plan: Etiology is unclear at this time. Despite tapering down her steroid patient continued to spike her WBC. (2) Acute and chronic respiratory failure with hypercapnia Is this a current diagnosis for this admission?: Yes Plan: Continue current regimen (3) COPD exacerbation Is this a current diagnosis for this admission?: Yes Plan: Her Solu-Medrol switched to p.o. prednisone 30 mg p.o. daily. (4) Atrial fibrillation with rapid ventricular response Is this a current diagnosis for this admission?: Yes Plan: Stable (5) Chronic systolic (congestive) heart failure Is this a current diagnosis for this admission?: Yes Plan: Continue Lasix, lisinopril and metoprolol succinate (6) Hypertension Qualifiers: Hypertension type: essential hypertension Qualified Code(s): I10 - Essential (primary) hypertension Is this a current diagnosis for this admission?: Yes Plan: Continue current regimen
[2018-06-21] MEDS: LISINOPRIL 5 MG TABLET PO SCH (12:23)
[2018-06-21] MEDS: SPIRONOLACTONE 25 MG TABLET PO SCH (12:23)
[2018-06-21] MEDS: MONTELUKAST SODIUM 10 MG TABLET PO SCH (21:44)
[2018-06-21] MEDS: PRAMIPEXOLE DI-HCL 0.25 MG TABLET PO SCH (21:45)
[2018-06-22] MEDS: LEVALBUTEROL HCL NEB 1.25 MG/3 ML AMPUL NEB SCH ×4 (01:53→19:42)
[2018-06-22] MEDS: LANSOPRAZOLE 30 MG TAB.RAP.DR PO SCH (05:24)
[2018-06-22] MEDS: DILTIAZEM HCL 30 MG TABLET PO SCH ×3 (05:24→17:08)
[2018-06-22 06:24] LABS: HEMATOCRIT 32.3 % (36.0-47.0); HEMOGLOBIN 10.3 g/dL (12.0-15.5); MEAN CORPUSCULAR HEMOGLOBIN 27.7 pg (27.0-33.4); MEAN CORPUSCULAR HGB CONC 31.8 g/dL (32.0-36.0); MEAN CORPUSCULAR VOLUME 87 fl (80-97); PLATELET COUNT 285 10^3/uL (150-450); RED BLOOD COUNT 3.71 10^6/uL (3.72-5.28); WHITE BLOOD COUNT 18.5 10^3/uL (4.0-10.5)
[2018-06-22 07:30] LABS: ABSOLUTE MONOCYTES # (MANUAL) 1.1 10^3/uL (0.1-1.4); ABSOLUTE NEUTROPHILS# (MANUAL) 15.4 10^3/uL (1.7-8.2); ANISOCYTOSIS 1+; BAND NEUTROPHILS % (MANUAL) 1 % (3-5); BASOPHILS % (MANUAL) 0 % (0-2); EOSINOPHILS % (MANUAL) 0 % (0-6); HYPOCHROMASIA SLIGHT; LYMPHOCYTES % (MANUAL) 11 % (13-45); METAMYELOCYTES % (MANUAL) 2 % (0); MONOCYTES % (MANUAL) 6 % (3-13); OVALOCYTES 1+; PLATELET COMMENT ADEQUATE; POIKILOCYTOSIS 1+; POLYCHROMASIA SLIGHT; SEGMENTED NEUTROPHILS % (MAN) 80 % (42-78); TOTAL CELLS COUNTED 100
[2018-06-22 07:31] LABS: TOXIC GRANULATION SLIGHT
[2018-06-22] MEDS ORDERED: PREDNISONE 20 MG TABLET PO SCH (07:34)
[2018-06-22] MEDS: BUDESONIDE NEB 0.5 MG/2 ML AMPUL NEB SCH ×2 (08:17→19:42)
[2018-06-22] MEDS: AZITHROMYCIN 500 MG in DEXTROSE 5%-WATER 250 ML IV SCH (08:23)
[2018-06-22] MEDS: OLANZAPINE 2.5 MG TABLET PO SCH (09:22)
[2018-06-22] MEDS: MULTIVITAMIN TABLET PO SCH (09:22)
[2018-06-22] MEDS: FLUTICASONE NASAL SPRAY 50 MCG/SPRY 120 SPRAY/16 GM NAREB SCH ×2 (09:22→21:26)
[2018-06-22] MEDS: ROFLUMILAST 500 MCG TABLET PO SCH (09:22)
[2018-06-22] MEDS: TOLTERODINE TARTRATE 1 MG TABLET PO SCH ×2 (09:22→21:25)
[2018-06-22] MEDS: APIXABAN 2.5 MG TABLET PO SCH ×2 (09:22→17:07)
[2018-06-22] MEDS: METOPROLOL SUCCINATE 25 MG TAB.SR.24H PO SCH ×2 (09:22→21:26)
--- NOTE | 2018-06-22 09:23 | PDOC PROGRESS REPORT ---
Subjective Progress Note for:: 06/22/18 Subjective:: Patient seen and examined while she is resting in bed. She reports her shortness of breath is at its baseline. Today her white cell count is trended down from 21-18. I tapered her prednisone to 10 mg p.o. daily. If the white cell count continued to trend down maybe she is a potential discharge for tomorrow. Reason For Visit: ACUTE RESPIRATORY FAILURE, COPD ACUTE EXACERBATION Physical Exam Vital Signs: Temp Pulse Resp BP Pulse Ox 97.9 F 74 18 138/54 H 100 06/22/18 03:40 06/22/18 08:32 06/22/18 08:32 06/22/18 08:32 06/22/18 08:32 Intake & Output 06/21/18 06/22/18 06/23/18 06:59 06:59 06:59 Intake Total 884 1735 Output Total 400 300 Balance 484 1435 Weight 68.2 kg 67.6 kg General appearance: PRESENT: mild distress Head exam: PRESENT: atraumatic Eye exam: PRESENT: conjunctiva pink Mouth exam: PRESENT: moist Neck exam: ABSENT: carotid bruit, JVD, lymphadenopathy, thyromegaly Respiratory exam: PRESENT: wheezes - Mild and occasional Cardiovascular exam: PRESENT: RRR. ABSENT: diastolic murmur, rubs, systolic murmur GI/Abdominal exam: PRESENT: normal bowel sounds, soft. ABSENT: distended, guarding, mass, organolmegaly, rebound, tenderness Neurological exam: PRESENT: alert, awake, oriented to time, oriented to situation Psychiatric exam: PRESENT: normal mood Results Laboratory Results: 06/22/18 05:06 06/20/18 04:56 06/22/18 05:06 WBC 18.5 H RBC 3.71 L Hgb 10.3 L Hct 32.3 L MCV 87 MCH 27.7 MCHC 31.8 L RDW 16.0 H Plt Count 285 Seg Neutrophils % Not Reportable Lymphocytes % Not Reportable Monocytes % Not Reportable Eosinophils % Not Reportable Basophils % Not Reportable Absolute Neutrophils Not Reportable Absolute Lymphocytes Not Reportable Absolute Monocytes Not Reportable Absolute Eosinophils Not Reportable Absolute Basophils Not Reportable 06/19/18 20:05 Sputum Gram Stain - Final 06/19/18 20:05 Sputum Sputum Culture - Final C.albicans/C.dubliniensis Normal Soco Impressions: Chest X-Ray 06/19/18 00:00 IMPRESSION: Minimal bibasilar airspace disease atelectasis versus pneumonia. Chest CT 06/21/18 00:00 IMPRESSION: Obstructive lung disease. Trace bilateral pleural effusions. Assessment & Plan - Diagnosis (1) Persistent leukocytosis Is this a current diagnosis for this admission?: Yes Plan: Trending down today her white cell count is 18,000 and yesterday 21,000 (2) Acute and chronic respiratory failure with hypercapnia Is this a current diagnosis for this admission?: Yes Plan: Continue current regimen (3) COPD exacerbation Is this a current diagnosis for this admission?: Yes Plan: Her Solu-Medrol switched to p.o. prednisone 30 mg p.o. daily. (4) Atrial fibrillation with rapid ventricular response Is this a current diagnosis for this admission?: Yes Plan: Stable (5) Chronic systolic (congestive) heart failure Is this a current diagnosis for this admission?: Yes Plan: Continue Lasix, lisinopril and metoprolol succinate (6) Hypertension Qualifiers: Hypertension type: essential hypertension Qualified Code(s): I10 - Essential (primary) hypertension Is this a current diagnosis for this admission?: Yes Plan: Continue current regimen
[2018-06-22] MEDS: CEFTRIAXONE SODIUM 2,000 MG in NORMAL SALINE 100 ML IV SCH (11:02)
[2018-06-22] MEDS: SPIRONOLACTONE 25 MG TABLET PO SCH (11:56)
[2018-06-22] MEDS: LISINOPRIL 5 MG TABLET PO SCH (11:56)
[2018-06-22] MEDS: OXYCODONE HCL IR 5 MG TABLET PO PRN ×2 (12:28→21:26)
[2018-06-22] MEDS: MONTELUKAST SODIUM 10 MG TABLET PO SCH (21:25)
[2018-06-22] MEDS: PRAMIPEXOLE DI-HCL 0.25 MG TABLET PO SCH (21:27)
[2018-06-23] MEDS: DILTIAZEM HCL 30 MG TABLET PO SCH ×4 (00:15→17:22)
[2018-06-23] MEDS: LEVALBUTEROL HCL NEB 1.25 MG/3 ML AMPUL NEB SCH ×4 (02:10→20:01)
[2018-06-23] MEDS: LANSOPRAZOLE 30 MG TAB.RAP.DR PO SCH (05:19)
[2018-06-23 05:34] LABS: HEMATOCRIT 30.7 % (36.0-47.0); HEMOGLOBIN 9.7 g/dL (12.0-15.5); MEAN CORPUSCULAR HEMOGLOBIN 27.6 pg (27.0-33.4); MEAN CORPUSCULAR HGB CONC 31.8 g/dL (32.0-36.0); MEAN CORPUSCULAR VOLUME 87 fl (80-97); PLATELET COUNT 261 10^3/uL (150-450); RED BLOOD COUNT 3.54 10^6/uL (3.72-5.28); RED CELL DISTRIBUTION WIDTH 16.3 % (11.5-14.0); WHITE BLOOD COUNT 19.8 10^3/uL (4.0-10.5)
[2018-06-23 06:28] LABS: ABSOLUTE MONOCYTES # (MANUAL) 1.2 10^3/uL (0.1-1.4); ABSOLUTE NEUTROPHILS# (MANUAL) 15.6 10^3/uL (1.7-8.2); BAND NEUTROPHILS % (MANUAL) 1 % (3-5); BASOPHILS % (MANUAL) 0 % (0-2); EOSINOPHILS % (MANUAL) 0 % (0-6); LYMPHOCYTES % (MANUAL) 15 % (13-45); METAMYELOCYTES % (MANUAL) 2 % (0); MONOCYTES % (MANUAL) 6 % (3-13); SEGMENTED NEUTROPHILS % (MAN) 74 % (42-78); TOTAL CELLS COUNTED 100
[2018-06-23 06:31] LABS: ANISOCYTOSIS 1+; HYPOCHROMASIA 2+; POIKILOCYTOSIS 1+; POLYCHROMASIA 1+
[2018-06-23 06:32] LABS: OVALOCYTES 2+; PLATELET COMMENT ADEQUATE; TEAR DROP CELLS SLIGHT
[2018-06-23 06:33] LABS: MYELOCYTES % (MANUAL) 2 % (0)
[2018-06-23] MEDS: AZITHROMYCIN 500 MG in DEXTROSE 5%-WATER 250 ML IV SCH (07:51)
[2018-06-23] MEDS: BUDESONIDE NEB 0.5 MG/2 ML AMPUL NEB SCH ×2 (08:10→20:01)
[2018-06-23] MEDS: PREDNISONE 20 MG TABLET PO SCH (10:38)
[2018-06-23] MEDS: APIXABAN 2.5 MG TABLET PO SCH ×2 (10:38→17:23)
[2018-06-23] MEDS: LISINOPRIL 5 MG TABLET PO SCH (10:38)
[2018-06-23] MEDS: TOLTERODINE TARTRATE 1 MG TABLET PO SCH ×2 (10:38→21:31)
[2018-06-23] MEDS: MULTIVITAMIN TABLET PO SCH (10:38)
[2018-06-23] MEDS: OLANZAPINE 2.5 MG TABLET PO SCH (10:38)
[2018-06-23] MEDS: ROFLUMILAST 500 MCG TABLET PO SCH (10:39)
[2018-06-23] MEDS: CEFTRIAXONE SODIUM 2,000 MG in NORMAL SALINE 100 ML IV SCH (10:39)
[2018-06-23] MEDS: FLUTICASONE NASAL SPRAY 50 MCG/SPRY 120 SPRAY/16 GM NAREB SCH ×2 (10:39→21:30)
[2018-06-23] MEDS: METOPROLOL SUCCINATE 25 MG TAB.SR.24H PO SCH ×2 (10:39→21:31)
[2018-06-23] MEDS: SPIRONOLACTONE 25 MG TABLET PO SCH (11:28)
[2018-06-23] MEDS ORDERED: FLUCONAZOLE 400 MG/NS RTU 400 MG/200 ML RTUPB IV ONE (12:19)
--- NOTE | 2018-06-23 12:27 | PDOC PROGRESS REPORT ---
Subjective Progress Note for:: 06/23/18 Subjective:: Patient is resting in bed comfortably. Initial the plan is to discharge her today if her WBC continue to trend down but rather her white cell started to spike up. The sputum culture reported on June 19 is positive for Vanesa albicans/Vanesa dulbinesis. Empirically. Started on Diflucan Reason For Visit: ACUTE RESPIRATORY FAILURE, COPD ACUTE EXACERBATION Physical Exam Vital Signs: Temp Pulse Resp BP Pulse Ox 99.1 F 78 19 114/55 L 99 06/23/18 11:16 06/23/18 11:16 06/23/18 11:16 06/23/18 11:16 06/23/18 11:16 Intake & Output 06/22/18 06/23/18 06/24/18 06:59 06:59 06:59 Intake Total 1735 1772 Output Total 300 Balance 1435 1772 Weight 67.6 kg 66.9 kg General appearance: PRESENT: no acute distress Eye exam: PRESENT: conjunctiva pink Mouth exam: PRESENT: moist Neck exam: ABSENT: carotid bruit, JVD, lymphadenopathy, thyromegaly Respiratory exam: PRESENT: crackles, wheezes Cardiovascular exam: PRESENT: RRR. ABSENT: diastolic murmur, rubs, systolic murmur GI/Abdominal exam: PRESENT: normal bowel sounds, soft. ABSENT: distended, guarding, mass, organolmegaly, rebound, tenderness Neurological exam: PRESENT: alert, awake, oriented to time, oriented to situation Results Laboratory Results: 06/23/18 04:52 06/20/18 04:56 06/23/18 04:52 WBC 19.8 H RBC 3.54 L Hgb 9.7 L Hct 30.7 L MCV 87 MCH 27.6 MCHC 31.8 L RDW 16.3 H Plt Count 261 Seg Neutrophils % Not Reportable Lymphocytes % Not Reportable Monocytes % Not Reportable Eosinophils % Not Reportable Basophils % Not Reportable Absolute Neutrophils Not Reportable Absolute Lymphocytes Not Reportable Absolute Monocytes Not Reportable Absolute Eosinophils Not Reportable Absolute Basophils Not Reportable Impressions: Chest X-Ray 06/19/18 00:00 IMPRESSION: Minimal bibasilar airspace disease atelectasis versus pneumonia. Chest CT 06/21/18 00:00 IMPRESSION: Obstructive lung disease. Trace bilateral pleural effusions. Assessment & Plan - Diagnosis (1) Sputum positive for Vanesa species Is this a current diagnosis for this admission?: Yes Plan: There is no way to differentiate between colonization or true infection. Patient started empirically on Diflucan. (2) Persistent leukocytosis Is this a current diagnosis for this admission?: Yes Plan: Still trending up (3) Acute and chronic respiratory failure with hypercapnia Is this a current diagnosis for this admission?: Yes Plan: Continue current regimen (4) COPD exacerbation Is this a current diagnosis for this admission?: Yes Plan: Her Solu-Medrol switched to p.o. prednisone 30 mg p.o. daily. (5) Atrial fibrillation with rapid ventricular response Is this a current diagnosis for this admission?: Yes Plan: Stable (6) Chronic systolic (congestive) heart failure Is this a current diagnosis for this admission?: Yes Plan: Continue Lasix, lisinopril and metoprolol succinate (7) Hypertension Qualifiers: Hypertension type: essential hypertension Qualified Code(s): I10 - Essential (primary) hypertension Is this a current diagnosis for this admission?: Yes Plan: Continue current regimen
[2018-06-23] MEDS: PRAMIPEXOLE DI-HCL 0.25 MG TABLET PO SCH (21:31)
[2018-06-23] MEDS: MONTELUKAST SODIUM 10 MG TABLET PO SCH (21:31)
[2018-06-23] MEDS: OXYCODONE HCL IR 5 MG TABLET PO PRN (23:51)
[2018-06-24] MEDS: DILTIAZEM HCL 30 MG TABLET PO SCH ×4 (00:33→17:29)
[2018-06-24] MEDS: LEVALBUTEROL HCL NEB 1.25 MG/3 ML AMPUL NEB SCH ×4 (02:11→20:03)
[2018-06-24 04:54] LABS: MEAN CORPUSCULAR HEMOGLOBIN 27.3 pg (27.0-33.4); MEAN CORPUSCULAR HGB CONC 31.3 g/dL (32.0-36.0); MEAN CORPUSCULAR VOLUME 87 fl (80-97); PLATELET COUNT 251 10^3/uL (150-450); RED BLOOD COUNT 3.67 10^6/uL (3.72-5.28); WHITE BLOOD COUNT 21.7 10^3/uL (4.0-10.5)
[2018-06-24 05:38] LABS: ABSOLUTE LYMPHOCYTES# (MANUAL) 5.2 10^3/uL (0.5-4.7); ABSOLUTE MONOCYTES # (MANUAL) 0.7 10^3/uL (0.1-1.4); ABSOLUTE NEUTROPHILS# (MANUAL) 15.6 10^3/uL (1.7-8.2); BASOPHILS % (MANUAL) 0 % (0-2); EOSINOPHILS % (MANUAL) 1 % (0-6); LYMPHOCYTES % (MANUAL) 24 % (13-45); MONOCYTES % (MANUAL) 3 % (3-13); SEGMENTED NEUTROPHILS % (MAN) 72 % (42-78); TOTAL CELLS COUNTED 100
[2018-06-24] MEDS: LANSOPRAZOLE 30 MG TAB.RAP.DR PO SCH (05:38)
[2018-06-24 05:40] LABS: ANISOCYTOSIS 1+; PLATELET COMMENT ADEQUATE; POLYCHROMASIA 1+
[2018-06-24] MEDS: AZITHROMYCIN 500 MG in DEXTROSE 5%-WATER 250 ML IV SCH (07:49)
[2018-06-24] MEDS: BUDESONIDE NEB 0.5 MG/2 ML AMPUL NEB SCH ×2 (08:23→20:03)
[2018-06-24] MEDS: METOPROLOL SUCCINATE 25 MG TAB.SR.24H PO SCH ×2 (09:20→21:40)
[2018-06-24] MEDS: APIXABAN 2.5 MG TABLET PO SCH ×2 (09:20→17:30)
[2018-06-24] MEDS: TOLTERODINE TARTRATE 1 MG TABLET PO SCH ×2 (09:20→21:40)
[2018-06-24] MEDS: FLUCONAZOLE 200 MG/NS RTU 200 MG/100 ML RTUPB IV SCH (09:21)
[2018-06-24] MEDS: PREDNISONE 20 MG TABLET PO SCH (09:21)
[2018-06-24] MEDS: MULTIVITAMIN TABLET PO SCH (09:21)
[2018-06-24] MEDS: OLANZAPINE 2.5 MG TABLET PO SCH (09:21)
[2018-06-24] MEDS: ROFLUMILAST 500 MCG TABLET PO SCH (09:21)
[2018-06-24] MEDS: FLUTICASONE NASAL SPRAY 50 MCG/SPRY 120 SPRAY/16 GM NAREB SCH ×2 (09:26→21:40)
[2018-06-24] MEDS: LISINOPRIL 5 MG TABLET PO SCH (11:19)
[2018-06-24] MEDS: SPIRONOLACTONE 25 MG TABLET PO SCH (11:19)
--- NOTE | 2018-06-24 14:23 | PDOC PROGRESS REPORT ---
Subjective Progress Note for:: 06/24/18 Subjective:: Patient is clinically stable. She eats and drinks well. No fever chills, nausea or vomiting or cough.CT scan, repeat chest x-ray and repeat blood cultures are all negative. I decreased her prednisone to cellulose dose 5 mg p.o. daily. Despite these, her white cell count is persistently increasing. Reason For Visit: ACUTE RESPIRATORY FAILURE, COPD ACUTE EXACERBATION Physical Exam Vital Signs: Temp Pulse Resp BP Pulse Ox 98.9 F 80 16 127/46 H 96 06/24/18 11:19 06/24/18 14:00 06/24/18 14:00 06/24/18 11:19 06/24/18 11:19 Intake & Output 06/23/18 06/24/18 06/25/18 06:59 06:59 06:59 Intake Total 1772 1690 824 Balance 1772 1690 824 Weight 66.9 kg 65.1 kg Results Laboratory Results: 06/24/18 04:24 06/20/18 04:56 06/24/18 04:24 WBC 21.7 H RBC 3.67 L Hgb 10.0 L Hct 32.0 L MCV 87 MCH 27.3 MCHC 31.3 L RDW 16.0 H Plt Count 251 Seg Neutrophils % Not Reportable Lymphocytes % Not Reportable Monocytes % Not Reportable Eosinophils % Not Reportable Basophils % Not Reportable Absolute Neutrophils Not Reportable Absolute Lymphocytes Not Reportable Absolute Monocytes Not Reportable Absolute Eosinophils Not Reportable Absolute Basophils Not Reportable Impressions: Chest X-Ray 06/19/18 00:00 IMPRESSION: Minimal bibasilar airspace disease atelectasis versus pneumonia. Chest CT 06/21/18 00:00 IMPRESSION: Obstructive lung disease. Trace bilateral pleural effusions. Assessment & Plan - Diagnosis (1) Sputum positive for Vanesa species Is this a current diagnosis for this admission?: Yes Plan: There is no way to differentiate between colonization or true infection. Patient started empirically on Diflucan. (2) Persistent leukocytosis Is this a current diagnosis for this admission?: Yes Plan: Still trending up (3) Acute and chronic respiratory failure with hypercapnia Is this a current diagnosis for this admission?: Yes Plan: Continue current regimen (4) COPD exacerbation Is this a current diagnosis for this admission?: Yes Plan: Her Solu-Medrol switched to p.o. prednisone 30 mg p.o. daily. (5) Atrial fibrillation with rapid ventricular response Is this a current diagnosis for this admission?: Yes Plan: Stable (6) Chronic systolic (congestive) heart failure Is this a current diagnosis for this admission?: Yes Plan: Continue Lasix, lisinopril and metoprolol succinate (7) Hypertension Qualifiers: Hypertension type: essential hypertension Qualified Code(s): I10 - Essential (primary) hypertension Is this a current diagnosis for this admission?: Yes Plan: Continue current regimen
[2018-06-24] MEDS: OXYCODONE HCL IR 5 MG TABLET PO PRN (15:18)
[2018-06-24] MEDS: PRAMIPEXOLE DI-HCL 0.25 MG TABLET PO SCH (21:40)
[2018-06-24] MEDS: MONTELUKAST SODIUM 10 MG TABLET PO SCH (21:40)
[2018-06-25] MEDS: LEVALBUTEROL HCL NEB 1.25 MG/3 ML AMPUL NEB SCH ×2 (02:21→08:22)
[2018-06-25 05:20] LABS: HEMATOCRIT 28.6 % (36.0-47.0); HEMOGLOBIN 8.9 g/dL (12.0-15.5); MEAN CORPUSCULAR HEMOGLOBIN 27.5 pg (27.0-33.4); MEAN CORPUSCULAR HGB CONC 31.2 g/dL (32.0-36.0); MEAN CORPUSCULAR VOLUME 88 fl (80-97); PLATELET COUNT 232 10^3/uL (150-450); RED BLOOD COUNT 3.25 10^6/uL (3.72-5.28); RED CELL DISTRIBUTION WIDTH 16.8 % (11.5-14.0); WHITE BLOOD COUNT 19.3 10^3/uL (4.0-10.5)
[2018-06-25] MEDS: LANSOPRAZOLE 30 MG TAB.RAP.DR PO SCH (05:22)
[2018-06-25] MEDS: DILTIAZEM HCL 30 MG TABLET PO SCH ×3 (05:24→11:55)
[2018-06-25] MEDS: AZITHROMYCIN 500 MG in DEXTROSE 5%-WATER 250 ML IV SCH (07:58)
--- NOTE | 2018-06-25 08:08 | PDOC DISCHARGE SUMMARY ---
General - Admit/Disc Date/PCP Admission Date/Primary Care Provider: 06/12/18 23:41 VIRGINIA ZUNIGA MD Discharge Date: 06/25/18 - Discharge Diagnosis (1) Sputum positive for Vanesa species Is this a current diagnosis for this admission?: Yes (2) Persistent leukocytosis Is this a current diagnosis for this admission?: Yes (3) Acute and chronic respiratory failure with hypercapnia Is this a current diagnosis for this admission?: Yes (4) COPD exacerbation Is this a current diagnosis for this admission?: Yes (5) Atrial fibrillation with rapid ventricular response Is this a current diagnosis for this admission?: Yes (6) Chronic systolic (congestive) heart failure Is this a current diagnosis for this admission?: Yes (7) Hypertension Is this a current diagnosis for this admission?: Yes - Additional Information Resuscitation Status: Full Code Discharge Diet: Cardiac Discharge Activity: Activity As Tolerated, No Driving Prescriptions: Diltiazem HCl [Diltiazem 24Hr Cd] 180 mg PO DAILY #30 cap.er.24h Levalbuterol HCl [Xopenex Neb 1.25 mg/3 ml Ampul] 1.25 mg NEB RTQ6 30 Days vial.neb Prednisone 10 mg PO ASDIR PRN #1 tab.ds.pk PRN Reason: Spironolactone [Aldactone 25 mg Tablet] 25 mg PO DAILY #30 tablet Home Medications: Aspirin [Aspirin EC] 81 mg PO DAILY 06/09/17 Fluticasone Propionate [Flonase Nasal [place] 50 Mcg/[place] 16 gm] 1 spray NAREB Q12 06/09/17 Montelukast Sodium [Singulair 10 mg Tablet] 10 mg PO QHS 06/09/17 Olanzapine [Zyprexa 2.5 mg Tablet] 2.5 mg PO DAILY 06/09/17 Oxycodone HCl [Oxycodone HCl 10 MG Tablet] 10 mg PO Q6HP PRN 06/09/17 Roflumilast [Daliresp 500 mcg Tablet] 500 mcg PO DAILY 06/09/17 Fluticasone/Salmeterol [Advair 500-50 Diskus 28 Dose] 1 inh IH Q12H 06/13/18 Furosemide [Lasix 20 mg Tablet] 40 mg PO DAILYP PRN 06/13/18 Ibuprofen [Motrin 800 mg Tablet] 800 mg PO Q8H PRN 06/13/18 Lisinopril [Zestril] 2.5 mg PO DAILY 06/13/18 Multivitamin [Multivitamins] 1 each PO DAILY 06/13/18 Nitroglycerin [Nitro-Dur 10 mg (0.4MG/Hr) Transdermal Patch] 1 patch TD QAM 06/23 Pramipexole Di-HCl [Pramipexole Dihydrochloride] 0.25 mg PO QHS 06/13/18 Pravastatin Sodium [Pravachol] 20 mg PO QHS 06/13/18 Tolterodine Tartrate [Detrol LA] 2 mg PO DAILY 06/13/18 Budesonide [Pulmicort Neb 0.5 mg/2 ml Ampul] 0.5 mg NEB RTQ12 ampul.neb Diltiazem HCl [Diltiazem 24Hr Cd] 180 mg PO DAILY #30 cap.er.24h 06/18/18 Levalbuterol HCl [Xopenex Neb 1.25 mg/3 ml Ampul] 1.25 mg NEB RTQ6 30 Days vial.neb 06/18/18 Potassium Chloride [Klor-Con M20] 20 meq PO DAILY #0 06/18/18 Prednisone 10 mg PO ASDIR PRN #1 tab.ds.pk 06/18/18 Spironolactone [Aldactone 25 mg Tablet] 25 mg PO DAILY #30 tablet 06/18/18 History of Present Illness History of Present Illness: SMITH IRAHETA is a 72 year old female with history of multiple medical problems that will be mentioned below including chronic respiratory failure on home O2 and BiPAP at night who has been noncompliant with her BiPAP for the last few nights. She presented to the emergency room with acute onset of worsening dyspnea with associated cough productive of greenish sputum as well as wheezing which have been going on over the last 4 days. She denies any fever or chills however has been feeling cold. No chest pain or palpitations. No nausea or vomiting or abdominal pain. No hemoptysis. Upon presentation to the emergency room her BP was 122/60 with a respiratory rate of 30, temperature of 99.9, pulse of 108 and pulse oximetry of 92% initially on room air and later on 88% then 91-93% on 30% FiO2 on BiPAP that was placed given her respiratory distress and an ABG showing respiratory acidosis with a pH of 7.34, PCO2 of 89.6, PO2 of 62.3, HCO3 of 46.7 and O2 sat of 88.7 on 3 L FiO2. Her labs revealed leukocytosis with neutrophilia as well as anemia and her CMP was remarkable for low chloride of 90 and elevated CO2 of 42. Blood glucose was 193, total protein was 5.9 and albumin 3.1. She had 2 negative sets of troponin so far less than 0.0 12. Her EKG showed suspected Marlena pacemaker versus sinus arrhythmia with PVCs. Her chest x-ray showed no evidence for pneumonia or CHF. The patient was given IV doxycycline 100 mg as well as 4 baby aspirin, IV Rocephin and IV Solu-Medrol. She was initially slightly somnolent during the interview she was alert and adequately responding to questions with improvement on BiPAP. She will therefore be admitted to an [facility] bed for further evaluation and management. Hospital Course Hospital Course: This is 72 years old female patient presented with chief complaint of shortness of breath. Patient has underlying end-stage lung disease and she has been on oxygen 24 7. Patient admitted with a diagnosis of acute on chronic hypercarbic/hypoxic respiratory failure. She is being treated with bronchodilator, Solu-Medrol and ceftriaxone. She has also chronic systolic congestive heart failure with ejection fraction of 25%. Her hospital course complicated by persistent leukocytosis. Repeat chest x-ray, CT scan of the chest and repeat blood cultures are negative for acute infection. Her white cell counts has been up and down yesterday it was 21,000 today it is 19,000. Her sputum cultures done on June 19 is positive for Vanesa albicans/Vanesa dubliness is not clear whether this is colonization or infection. She is empirically treated with fluconazole. Regardless of the leukocytosis patient's clinical stable and has been doing well. Today I seen patient resting in bed comfortably. She is not in pain or distress. I will continue all her home medication and I will send her home with fluconazole 200 mg for 7 days and prednisone 5 mg daily. Physical Exam Vital Signs: Temp Pulse Resp BP Pulse Ox 98.0 F 87 18 120/46 L 98 06/25/18 07:22 06/25/18 07:22 06/25/18 07:22 06/25/18 07:22 06/25/18 07:22 Intake & Output 06/24/18 06/25/18 06/26/18 06:59 06:59 06:59 Intake Total 1690 1719 Balance 1690 1719 Weight 65.1 kg 63.8 kg General appearance: PRESENT: no acute distress Eye exam: PRESENT: conjunctiva pink Mouth exam: PRESENT: moist Neck exam: ABSENT: carotid bruit, JVD, lymphadenopathy, thyromegaly Respiratory exam: PRESENT: decreased breath sounds Cardiovascular exam: PRESENT: RRR. ABSENT: diastolic murmur, rubs, systolic murmur Results Laboratory Results: 06/25/18 04:47 06/20/18 04:56 06/25/18 04:47 WBC 19.3 H RBC 3.25 L Hgb 8.9 L Hct 28.6 L MCV 88 MCH 27.5 MCHC 31.2 L RDW 16.8 H Plt Count 232 Impressions: Chest X-Ray 06/19/18 00:00 IMPRESSION: Minimal bibasilar airspace disease atelectasis versus pneumonia. Chest CT 06/21/18 00:00 IMPRESSION: Obstructive lung disease. Trace bilateral pleural effusions. Qualifiers - * PATIENT BEING DISCHARGED WITH ANY OF THE FOLLOWING DIAGNOSIS: Heart Failure VTE patient discharged on overlapping Therapy?: No Reason(s) for not prescribing Overlap Therapy:: Not indicated Stroke Pt being discharged on Anti-thrombolytic therapy?: No Reason(s) for not prescribing Anti-thrombolytic therapy:: Not indicated Stroke Pt being discharged on Anti-coagulation therapy?: No Reason(s) for not prescribing Anti-coagulation therapy:: Not indicated Stroke Pt being discharged on Statins?: No Reason(s) for not prescribing Statins therapy:: Not indicated AK Pt being discharged on Aspirin therapy?: No Reason(s) for not prescribing Aspirin therapy:: Not indicated AK Pt being discharged on Statins?: No Reason(s) for not prescribing Statin therapy:: Not indicated AK Pt discharged ACEI/ARBS?: No Reason(s) for not prescribing ACEI/ARBS:: Not indicated HF Pt being discharged on ACEI for LVEF less than 40%?: Yes HF Pt being discharged on ARBS for LVEF less than 40%?: No Reason(s) for not prescribing ARBS:: Not indicated HF Pt with Afib discharged with Warfarin?: No Reason(s) for not prescribing Warfarin:: Not indicated HF Pt discharged on evidence-based Beta Carloz:: No Reason(s) for not prescribing evidence-based Beta Carloz:: Contraindicated
[2018-06-25] MEDS: BUDESONIDE NEB 0.5 MG/2 ML AMPUL NEB SCH (08:22)
[2018-06-25] MEDS: APIXABAN 2.5 MG TABLET PO SCH (09:23)
[2018-06-25] MEDS: METOPROLOL SUCCINATE 25 MG TAB.SR.24H PO SCH (09:23)
[2018-06-25] MEDS: PREDNISONE 20 MG TABLET PO SCH (09:23)
[2018-06-25] MEDS: ROFLUMILAST 500 MCG TABLET PO SCH (09:23)
[2018-06-25] MEDS: TOLTERODINE TARTRATE 1 MG TABLET PO SCH (09:23)
[2018-06-25] MEDS: MULTIVITAMIN TABLET PO SCH (09:23)
[2018-06-25] MEDS: OLANZAPINE 2.5 MG TABLET PO SCH (09:23)
[2018-06-25] MEDS: FLUTICASONE NASAL SPRAY 50 MCG/SPRY 120 SPRAY/16 GM NAREB SCH (09:25)
[2018-06-25] MEDS: FLUCONAZOLE 200 MG/NS RTU 200 MG/100 ML RTUPB IV SCH (10:30)
[2018-06-25 11:55] VITALS: BP 120/57
[2018-06-25] MEDS: SPIRONOLACTONE 25 MG TABLET PO SCH (11:55)
[2018-06-25] MEDS: LISINOPRIL 5 MG TABLET PO SCH (11:55)
[2018-06-25] MEDS: OXYCODONE HCL IR 5 MG TABLET PO PRN (13:21)
[2018-06-26 11:23] LABS: PATH REVIEW PATHOLOGIST REVIEWED
== END 2018-06-25 13:29 | disposition home health service (06) | DRG 189 ==
LOC: ER 17:54 → EH 23:41 → 3W 06-13 14:17
PROVIDERS: ADMIT Family Medicine; ATTEND Family Medicine
PROC: 5A09357 Assistance with Respiratory Ventilation, Less than 24 Consecutive Hours, Continuous Positive Airway Pressure (ICD-10-PCS; principal; 2018-06-12)
PROC: 3E0F73Z Introduction of Anti-inflammatory into Respiratory Tract, Via Natural or Artificial Opening (ICD-10-PCS; 2018-06-13)
DX: J96.22 Acute and chronic respiratory failure with hypercapnia (principal); J44.1 Chronic obstructive pulmonary disease with (acute) exacerbation; I50.22 Chronic systolic (congestive) heart failure; R84.5 Abnormal microbiological findings in specimens from respiratory organs and thorax; D72.829 Elevated white blood cell count, unspecified; I11.0 Hypertensive heart disease with heart failure; D64.9 Anemia, unspecified; I25.10 Atherosclerotic heart disease of native coronary artery without angina pectoris; K21.9 Gastro-esophageal reflux disease without esophagitis; K44.9 Diaphragmatic hernia without obstruction or gangrene; M19.90 Unspecified osteoarthritis, unspecified site; F32.9 Major depressive disorder, single episode, unspecified; J96.21 Acute and chronic respiratory failure with hypoxia; I48.91 Unspecified atrial fibrillation; Z79.899 Other long term (current) drug therapy; Z99.81 Dependence on supplemental oxygen; Z91.19 Patient's noncompliance with other medical treatment and regimen; Z90.49 Acquired absence of other specified parts of digestive tract; Z87.891 Personal history of nicotine dependence; Z80.9 Family history of malignant neoplasm, unspecified; Z82.3 Family history of stroke; Z79.82 Long term (current) use of aspirin; Z79.52 Long term (current) use of systemic steroids
CPT/HCPCS: 36415; 36600; 71045; 71250; 80048; 80053; 81001; 82550; 82553; 82803; 83735; 84484; 85025; 85027; 87040; 87070; 87205; 93005; 93010; 94640; 94660; 96365; 96375; 99285; G8978-GP; G8979-GP; J0456; J0696; J1450; J1650; J2920; J2930; J3490; J7030; J7060; J7512; J7620

== ENCOUNTER → 2018-07-06 | Outpatient (CLI) | payer MEDICARE, OTHER ==
[2018-07-06 13:07] LABS: ABSOLUTE EOSINOPHILS # (AUTO) 0.1 10^3/uL (0.0-0.6); ABSOLUTE LYMPHOCYTES (AUTO) 0.8 10^3/uL (0.5-4.7); ABSOLUTE MONOCYTES (AUTO) 0.3 10^3/uL (0.1-1.4); ABSOLUTE NEUT (AUTO) 12.3 10^3/uL (1.7-8.2); BASOPHILS % (AUTO) 0.1 % (0-2); EOSINOPHILS % (AUTO) 0.4 % (0-6); HEMATOCRIT 32.7 % (36.0-47.0); HEMOGLOBIN 10.4 g/dL (12.0-15.5); LYMPHOCYTES % (AUTO) 5.8 % (13-45); MEAN CORPUSCULAR HEMOGLOBIN 28.1 pg (27.0-33.4); MEAN CORPUSCULAR HGB CONC 31.7 g/dL (32.0-36.0); MEAN CORPUSCULAR VOLUME 89 fl (80-97); MONOCYTES % (AUTO) 2.4 % (3-13); PLATELET COUNT 470 10^3/uL (150-450); RED BLOOD COUNT 3.69 10^6/uL (3.72-5.28); RED CELL DISTRIBUTION WIDTH 17.9 % (11.5-14.0); SEGMENTED NEUTROPHILS % (AUTO) 91.3 % (42-78); TOTAL CELLS COUNTED % (AUTO) 100 %; WHITE BLOOD COUNT 13.4 10^3/uL (4.0-10.5)
[2018-07-06 13:42] LABS: ANION GAP 10 (5-19); BLOOD UREA NITROGEN 11 mg/dL (7-20); CALCIUM 9.2 mg/dL (8.4-10.2); CARBON DIOXIDE 35 mmol/L (22-30); CHLORIDE 98 mmol/L (98-107); GLUCOSE 134 mg/dL (75-110); POTASSIUM 5.2 mmol/L (3.6-5.0); SODIUM 142.9 mmol/L (137-145)
== END ==
LOC: OD 12:17
PROVIDERS: ATTEND Internal Medicine
DX: D64.9 Anemia, unspecified (principal); J96.12 Chronic respiratory failure with hypercapnia
CPT/HCPCS: 36415; 80048; 85025

== ENCOUNTER 2018-07-18 00:17 | Emergency (ER) | payer MEDICARE, OTHER ==
[2018-07-18] MEDS ORDERED: ASPIRIN 81 MG TABLET, CHEWABLE PO ONE (00:24)
[2018-07-18 00:51] LABS: ABSOLUTE LYMPHOCYTES (AUTO) 1.5 10^3/uL (0.5-4.7); ABSOLUTE MONOCYTES (AUTO) 0.7 10^3/uL (0.1-1.4); ABSOLUTE NEUT (AUTO) 14.9 10^3/uL (1.7-8.2); BASOPHILS % (AUTO) 0.2 % (0-2); EOSINOPHILS % (AUTO) 0.1 % (0-6); HEMATOCRIT 28.4 % (36.0-47.0); HEMOGLOBIN 9.1 g/dL (12.0-15.5); LYMPHOCYTES % (AUTO) 8.9 % (13-45); MEAN CORPUSCULAR HEMOGLOBIN 28.1 pg (27.0-33.4); MEAN CORPUSCULAR HGB CONC 32.1 g/dL (32.0-36.0); MEAN CORPUSCULAR VOLUME 88 fl (80-97); MONOCYTES % (AUTO) 4.2 % (3-13); PLATELET COUNT 412 10^3/uL (150-450); RED BLOOD COUNT 3.24 10^6/uL (3.72-5.28); RED CELL DISTRIBUTION WIDTH 16.7 % (11.5-14.0); SEGMENTED NEUTROPHILS % (AUTO) 86.6 % (42-78); TOTAL CELLS COUNTED % (AUTO) 100 %; WHITE BLOOD COUNT 17.2 10^3/uL (4.0-10.5)
[2018-07-18] MEDS ORDERED: NITROGLYCERIN 0.4 MG/TAB 25 TAB/BOTTLE SL PRN (00:51)
[2018-07-18 01:06] LABS: ALANINE AMINOTRANSFERASE 18 U/L (9-52); ALBUMIN 2.8 g/dL (3.5-5.0); ALKALINE PHOSPHATASE 67 U/L (38-126); ASPARTATE AMINO TRANSFERASE 10 U/L (14-36); BILIRUBIN,DIRECT 0.3 mg/dL (0.0-0.4); BILIRUBIN,TOTAL 0.3 mg/dL (0.2-1.3); BLOOD UREA NITROGEN 12 mg/dL (7-20); CALCIUM 8.8 mg/dL (8.4-10.2); CHLORIDE 92 mmol/L (98-107); GLUCOSE 159 mg/dL (75-110); POTASSIUM 4.4 mmol/L (3.6-5.0); SODIUM 137.1 mmol/L (137-145); TOTAL PROTEIN 5.6 g/dL (6.3-8.2)
--- NOTE | 2018-07-18 01:13 | RADIOLOGY REPORT (SQ) ---
EXAM DESCRIPTION: XR CHEST 1 VIEW COMPLETED DATE/TME: 07/18/2018 00:24 CLINICAL HISTORY: 72 years Female, cp COMPARISON: None. NUMBER OF VIEWS/TECHNIQUE: 1/AP FINDINGS: Adequate lung volume, clear parenchyma, normal cardiac silhouette, and intact bony thorax. Right upper abdominal clips. IMPRESSION: No acute cardiopulmonary findings.
[2018-07-18 01:17] LABS: CREATINE KINASE < 20 U/L (30-135)
[2018-07-18 01:18] LABS: CREATINE KINASE MB 0.41 ng/mL (<4.55)
[2018-07-18 01:20] LABS: CARBON DIOXIDE 41 mmol/L (22-30)
[2018-07-18 01:21] LABS: TROPONIN I < 0.012 ng/mL
[2018-07-18 02:12] LABS: ANION GAP 4 (5-19)
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
[2018-07-18 07:15] VITALS: BP 151/67
--- NOTE | 2018-07-18 08:29 | EKG REPORT ---
SEVERITY:- BORDERLINE ECG - SINUS TACHYCARDIA ATRIAL PREMATURE COMPLEX BORDERLINE T ABNORMALITIES, ANT-LAT LEADS : Confirmed by: Emmett Troncoso 18-Jul-2018 08:28:50
--- NOTE | 2018-07-20 00:09 | EKG REPORT ---
SEVERITY:- ABNORMAL ECG - SINUS TACHYCARDIA MULTIPLE ATRIAL PREMATURE COMPLEXES PROBABLE POSTERIOR INFARCT NONSPECIFIC T ABNORMALITIES, LATERAL LEADS : Confirmed by: Emmett Troncoso 20-Jul-2018 00:08:47
== END 2018-07-18 07:15 | disposition home or self-care (01) ==
LOC: ER 00:17
DX: R07.89 Other chest pain (principal); J44.9 Chronic obstructive pulmonary disease, unspecified; I11.0 Hypertensive heart disease with heart failure; I50.9 Heart failure, unspecified; Z99.81 Dependence on supplemental oxygen; Z79.52 Long term (current) use of systemic steroids
CPT/HCPCS: 36415; 71045; 80053; 82550; 82553; 84484; 85025; 93005; 93010; 99285

== ENCOUNTER 2018-07-19 17:23 | Inpatient (IN) | payer MEDICARE ==
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
[2018-07-19 18:11] LABS: VENOUS BLOOD BASE EXCESS 17.3 mmol/L; VENOUS BLOOD HCO3 47.7 mmol/L (20-32); VENOUS BLOOD PH 7.31 (7.30-7.42)
[2018-07-19 18:12] LABS: VENOUS BLOOD PCO2 96.6 mmHg (35-63)
[2018-07-19 18:21] LABS: ALANINE AMINOTRANSFERASE 13 U/L (9-52); ALBUMIN 3.4 g/dL (3.5-5.0); ALKALINE PHOSPHATASE 80 U/L (38-126); ASPARTATE AMINO TRANSFERASE 14 U/L (14-36); BILIRUBIN,DIRECT 0.3 mg/dL (0.0-0.4); BILIRUBIN,TOTAL 0.4 mg/dL (0.2-1.3); BLOOD UREA NITROGEN 7 mg/dL (7-20); CALCIUM 9.6 mg/dL (8.4-10.2); CHLORIDE 92 mmol/L (98-107); GLUCOSE 137 mg/dL (75-110); POTASSIUM 3.9 mmol/L (3.6-5.0); TOTAL PROTEIN 6.5 g/dL (6.3-8.2)
[2018-07-19 18:28] LABS: ANION GAP 8 (5-19); CREATINE KINASE < 20 U/L (30-135); INTERNATIONAL RATION (INR) 1.11; PROTHROMBIN TIME 14.8 SEC (11.4-15.4)
[2018-07-19 18:29] LABS: CARBON DIOXIDE 42 mmol/L (22-30); PARTIAL THROMBOPLASTIN TIME 30.8 SEC (23.5-35.8)
[2018-07-19 18:33] LABS: ABSOLUTE EOSINOPHILS # (AUTO) 0.1 10^3/uL (0.0-0.6); ABSOLUTE LYMPHOCYTES (AUTO) 1.6 10^3/uL (0.5-4.7); ABSOLUTE MONOCYTES (AUTO) 0.8 10^3/uL (0.1-1.4); ABSOLUTE NEUT (AUTO) 12.8 10^3/uL (1.7-8.2); BASOPHILS % (AUTO) 0.2 % (0-2); CREATINE KINASE MB 0.56 ng/mL (<4.55); EOSINOPHILS % (AUTO) 0.5 % (0-6); HEMATOCRIT 35.1 % (36.0-47.0); HEMOGLOBIN 10.8 g/dL (12.0-15.5); LYMPHOCYTES % (AUTO) 10.2 % (13-45); MEAN CORPUSCULAR HGB CONC 30.7 g/dL (32.0-36.0); MEAN CORPUSCULAR VOLUME 88 fl (80-97); MONOCYTES % (AUTO) 5.1 % (3-13); PLATELET COUNT 456 10^3/uL (150-450); RED BLOOD COUNT 3.99 10^6/uL (3.72-5.28); RED CELL DISTRIBUTION WIDTH 17.2 % (11.5-14.0); TOTAL CELLS COUNTED % (AUTO) 100 %; WHITE BLOOD COUNT 15.2 10^3/uL (4.0-10.5)
[2018-07-19 18:34] LABS: TROPONIN I < 0.012 ng/mL
--- NOTE | 2018-07-19 18:41 | RADIOLOGY REPORT (SQ) ---
EXAM DESCRIPTION: CHEST SINGLE VIEW COMPLETED DATE/TIME: 07/19/2018 6:29 pm REASON FOR STUDY: Chest Pain COMPARISON: 07/18/2018 EXAM PARAMETERS: NUMBER OF VIEWS: One view. TECHNIQUE: Single frontal radiographic view of the chest acquired. RADIATION DOSE: NA LIMITATIONS: None. FINDINGS: LUNGS AND PLEURA: No opacities, masses or pneumothorax. No pleural effusion. MEDIASTINUM AND HILAR STRUCTURES: No masses. Contour normal. HEART AND VASCULAR STRUCTURES: Cardiomegaly. No pulmonary edema. BONES: No acute findings. HARDWARE: None in the chest. OTHER: No other significant finding. IMPRESSION: Cardiomegaly without pulmonary edema. TECHNICAL DOCUMENTATION: JOB ID: [id number] [employer]- All Rights Reserved Reading location - IP/workstation name: [email or web address]
[2018-07-19] MEDS ORDERED: LEVOFLOXACIN 750 MG/D5W RTU 750 MG/150 ML RTUPB IV ONE (18:47)
[2018-07-19 18:48] LABS: ARTERIAL BLOOD BASE EXCESS 13.5 mmol/L; ARTERIAL BLOOD FIO2 3L; ARTERIAL BLOOD H2CO3 2.09 mmol/L (1.05-1.35); ARTERIAL BLOOD HCO3 40.9 mmol/L (20-24); ARTERIAL BLOOD PH 7.39 (7.35-7.45); ARTERIAL BLOOD PO2 116.2 mmHg (80-100)
[2018-07-19 18:50] LABS: ARTERIAL BLOOD PCO2 69.3 mmHg (35-45)
[2018-07-19] MEDS ORDERED: (PENDING PHARMACY ID) (Oxycodone Hcl [Oxycodone Hcl 10 Mg Tablet] 5 MG) PO PRN (19:16)
[2018-07-19] MEDS ORDERED: HYDRALAZINE HCL INJ/PF 20 MG/1 ML SDV IV PRN (19:18)
[2018-07-19] MEDS ORDERED: ACETAMINOPHEN 325 MG TABLET PO PRN (19:19)
[2018-07-19] MEDS ORDERED: IPRATROPIUM/ALBUTEROL 0.5-2.5 MG/3 ML AMPUL NEB PRN (19:19)
[2018-07-19] MEDS ORDERED: GUAIFENESIN SYRP 200 MG/10 ML UDC PO PRN (19:19)
[2018-07-19 19:24] LABS: APPEARANCE,URINE SLIGHTLY-CLOUDY; BILIRUBIN,URINE NEGATIVE (NEGATIVE); COLOR,URINE YELLOW; GLUCOSE, URINE NEGATIVE (NEGATIVE); KETONES,URINE NEGATIVE (NEGATIVE); LEUKOCYTE ESTERASE,URINE NEGATIVE (NEGATIVE); NITRITE,URINE NEGATIVE (NEGATIVE); PROTEIN,URINE NEGATIVE (NEGATIVE); URINE SPECIFIC GRAVITY 1.014
[2018-07-19] MEDS ORDERED: DILTIAZEM HCL 180 MG CAPSULE.CR PO ONE (19:59)
[2018-07-19 20:27] LABS: ABSOLUTE RETICS # 0.064 10^6/uL (0.028-0.122); RETICULOCYTE COUNT (AUTO) 1.91 % (0.66-2.85)
[2018-07-19 20:49] LABS: CREATINE KINASE MB 0.38 ng/mL (<4.55)
[2018-07-19 20:53] LABS: TROPONIN I < 0.012 ng/mL
[2018-07-19] MEDS: LEVALBUTEROL HCL NEB 1.25 MG/3 ML AMPUL NEB SCH (21:18)
[2018-07-19] MEDS: BUDESONIDE NEB 0.5 MG/2 ML AMPUL NEB SCH (21:18)
[2018-07-19] MEDS: IPRATROPIUM BROMIDE 0.02% NEB 0.5 MG/2.5 ML AMPUL NEB SCH (21:18)
[2018-07-19 21:46] LABS: IRON(TIBC) 21.2 ug/dL (37-170)
[2018-07-19] MEDS: DILTIAZEM HCL 180 MG CAPSULE.CR PO SCH (22:21)
[2018-07-19] MEDS: PREDNISONE 20 MG TABLET PO SCH (22:21)
[2018-07-19 22:54] LABS: CREATINE KINASE < 20 U/L (30-135); FOLATE > 20.00 ng/mL (>2.76)
[2018-07-19] MEDS: OXYCODONE HCL IR 5 MG TABLET PO PRN (23:29)
[2018-07-19] MEDS: APIXABAN 2.5 MG TABLET PO SCH (23:31)
[2018-07-19] MEDS: FLUTICASONE NASAL SPRAY 50 MCG/SPRY 120 SPRAY/16 GM NAREB SCH (23:31)
[2018-07-19] MEDS: MONTELUKAST SODIUM 10 MG TABLET PO SCH (23:31)
[2018-07-20] MEDS: LEVALBUTEROL HCL NEB 1.25 MG/3 ML AMPUL NEB SCH ×4 (02:34→19:50)
[2018-07-20] MEDS: IPRATROPIUM BROMIDE 0.02% NEB 0.5 MG/2.5 ML AMPUL NEB SCH ×4 (02:34→19:50)
[2018-07-20 05:29] LABS: HEMATOCRIT 29.8 % (36.0-47.0); HEMOGLOBIN 9.3 g/dL (12.0-15.5); MEAN CORPUSCULAR HEMOGLOBIN 27.4 pg (27.0-33.4); MEAN CORPUSCULAR HGB CONC 31.4 g/dL (32.0-36.0); MEAN CORPUSCULAR VOLUME 87 fl (80-97); PLATELET COUNT 385 10^3/uL (150-450); RED BLOOD COUNT 3.41 10^6/uL (3.72-5.28); RED CELL DISTRIBUTION WIDTH 16.4 % (11.5-14.0); WHITE BLOOD COUNT 16.2 10^3/uL (4.0-10.5)
[2018-07-20 05:37] LABS: ANION GAP 5 (5-19); BLOOD UREA NITROGEN 8 mg/dL (7-20); CALCIUM 8.7 mg/dL (8.4-10.2); CARBON DIOXIDE 39 mmol/L (22-30); CHLORIDE 94 mmol/L (98-107); GLUCOSE 115 mg/dL (75-110); POTASSIUM 4.5 mmol/L (3.6-5.0); SODIUM 138.2 mmol/L (137-145)
[2018-07-20 05:47] LABS: CREATINE KINASE MB 0.33 ng/mL (<4.55)
[2018-07-20 05:51] LABS: TROPONIN I < 0.012 ng/mL
[2018-07-20 05:52] LABS: ABSOLUTE LYMPHOCYTES# (MANUAL) 1.8 10^3/uL (0.5-4.7); ABSOLUTE NEUTROPHILS# (MANUAL) 14.4 10^3/uL (1.7-8.2); BAND NEUTROPHILS % (MANUAL) 2 % (3-5); BASOPHILS % (MANUAL) 0 % (0-2); EOSINOPHILS % (MANUAL) 0 % (0-6); LYMPHOCYTES % (MANUAL) 11 % (13-45); MONOCYTES % (MANUAL) 0 % (3-13); SEGMENTED NEUTROPHILS % (MAN) 87 % (42-78); TOTAL CELLS COUNTED 100
[2018-07-20 05:55] LABS: ANISOCYTOSIS 1+; BURR CELLS SLIGHT; OVALOCYTES SLIGHT; PLATELET COMMENT ADEQUATE; POIKILOCYTOSIS SLIGHT; POLYCHROMASIA SLIGHT
--- NOTE | 2018-07-20 06:13 | PDOC H&P ---
History of Present Illness Admission Date/PCP: 07/19/18 19:24 KAILEE WOLF MD Patient complains of: Shortness of breath History of Present Illness: SMITH IRAHETA is a 72 year old female with a past medical history of congestive heart failure 35% ejection fraction, atrial fibrillation, coronary artery disease, oxygen dependent COPD, BiPAP dependent. She presents with exacerbation of shortness of breath and chest pain with exertion prompting evaluation emergency room denying. She is found to have hypoxia and hypercapnia with pulse oximetry in the 80s and a PCO2 of 70. She is ordered oxygen and referred to the hospitalist for admission. SHe is currently pain- free. She denies recent change in medications, sore throat, productive cough or uncontrolled GERD. She admits to noncompliance with BiPAP. Past Medical History Cardiac Medical History: Reports: Congestive Heart Failure - Ejection fraction of less than 25%, May 2014., Coronary Artery Disease, Hypertension Denies: DVT, Myocardial Infarction, Hyperlipidema, Pulmonary Embolism Pulmonary Medical History: Reports: Chronic Obstructive Pulmonary Disease (COPD ) - 3L nasal O2 at home, Pneumonia Denies: Asthma Neurological Medical History: Denies: Seizures Endocrine Medical History: Denies: Diabetes Mellitus Type 1, Diabetes Mellitus Type 2, Hyperthyroidism, Hypothyroidism GI Medical History: Reports: Gastroesophageal Reflux Disease - Mild, Hiatal Hernia Denies: Cirrhosis, Hepatitis Musculoskeltal Medical History: Reports: Arthritis Psychiatric Medical History: Denies: Depression - denies Hematology: Reports: Anemia Denies: Sickle Cell Disease Past Surgical History Past Surgical History: Reports: Cholecystectomy, Orthopedic Surgery - "back surgery", Other - Last colonoscopy many years ago Denies: Amputation, Hysterectomy, Mastectomy, Pacemaker Social History Information Source: Patient Smoking Status: Former Smoker Last Time Smoked: 2016 Frequency of Alcohol Use: None Hx Recreational Drug Use: No Drugs: None Hx Prescription Drug Abuse: No - Advance Directive Resuscitation Status: Full Code Family History Family History: CVA, Malignancy Parental Family History Reviewed: Yes Children Family History Reviewed: Yes Sibling(s) Family History Reviewed.: Yes Medication/Allergy Home Medications: Montelukast Sodium [Singulair 10 mg Tablet] 10 mg PO QHS 06/09/17 Olanzapine [Zyprexa 2.5 mg Tablet] 2.5 mg PO DAILY 06/09/17 Oxycodone HCl [Oxycodone HCl 10 MG Tablet] 10 mg PO Q6HP PRN 06/09/17 Roflumilast [Daliresp 500 mcg Tablet] 500 mcg PO DAILY 06/09/17 Ibuprofen [Motrin 800 mg Tablet] 800 mg PO Q8 06/13/18 Multivitamin [Multivitamins] 1 each PO DAILY 06/13/18 Pravastatin Sodium [Pravachol] 20 mg PO QHS 06/13/18 Apixaban [Eliquis 2.5 mg Tablet] 2.5 mg PO BID #60 tablet 06/25/18 Prednisone [Deltasone 20 mg Tablet] 5 mg PO DAILY #30 tablet 06/25/18 Albuterol Sulfate [Proair Hfa Inhalation Aerosol 8.5 gm Mdi] 1 puff IH Q4HP PRN 07/19/18 Metoprolol Succinate [Toprol Xl 25 mg Tab.sr] 25 mg PO Q12 07/19/18 Omeprazole 40 mg PO DAILY 07/19/18 Potassium Chloride [Klor-Con M20] 20 meq PO BID 07/19/18 Pramipexole Di-HCl [Pramipexole Dihydrochloride] 0.25 mg PO DAILY 07/19/18 Tolterodine Tartrate [Detrol LA] 2 mg PO DAILY 07/19/18 Allergies/Adverse Reactions: No Known Allergies Allergy (Verified 06/12/18 18:15) Review of Systems Constitutional: PRESENT: as per HPI, fatigue, weakness. ABSENT: fever(s), headache(s), night sweats Eyes: ABSENT: visual disturbances Ears: ABSENT: hearing changes Cardiovascular: PRESENT: as per HPI, chest pain, dyspnea on exertion. ABSENT: edema, orthropnea, palpitations Respiratory: PRESENT: as per HPI, dyspnea. ABSENT: cough, hemoptysis, sputum Gastrointestinal: ABSENT: abdominal pain, constipation, diarrhea, hematemesis, hematochezia, nausea, vomiting Genitourinary: ABSENT: dysuria, hematuria Musculoskeletal: ABSENT: joint swelling Integumentary: ABSENT: rash, wounds Neurological: ABSENT: abnormal gait, abnormal speech, confusion, dizziness, focal weakness, syncope Psychiatric: ABSENT: anxiety, depression, homidical ideation, suicidal ideation Endocrine: ABSENT: cold intolerance, heat intolerance, polydipsia, polyuria Hematologic/Lymphatic: ABSENT: easy bleeding, easy bruising Physical Exam Vital Signs: Temp Pulse Resp BP Pulse Ox 97.4 F 76 19 111/52 L 100 07/20/18 04:00 07/20/18 04:00 07/20/18 04:00 07/20/18 04:00 07/20/18 04:00 Intake & Output 07/18/18 07/19/18 07/20/18 11:59 11:59 11:59 Intake Total 150 Balance 150 Weight 58.6 kg General appearance: PRESENT: cooperative, mild distress. ABSENT: hard of hearing, severe distress Head exam: PRESENT: atraumatic, normocephalic Eye exam: PRESENT: conjunctiva pink, EOMI, PERRLA. ABSENT: scleral icterus Ear exam: PRESENT: normal external ear exam Mouth exam: PRESENT: moist, tongue midline Neck exam: ABSENT: carotid bruit, JVD, lymphadenopathy, thyromegaly Respiratory exam: PRESENT: accessory muscle use, crackles, decreased breath sounds, prolonged expiratory phas, tachypnea. ABSENT: chest wall tenderness, clear to auscultation jaime, rales, retraction Cardiovascular exam: PRESENT: RRR. ABSENT: diastolic murmur, rubs, systolic murmur Pulses: PRESENT: normal dorsalis pedis pul Vascular exam: PRESENT: normal capillary refill GI/Abdominal exam: PRESENT: normal bowel sounds, soft. ABSENT: distended, guarding, mass, organolmegaly, rebound, tenderness Rectal exam: PRESENT: deferred Extremities exam: PRESENT: full ROM. ABSENT: calf tenderness, clubbing, pedal edema Neurological exam: PRESENT: alert, awake, oriented to person, oriented to place , oriented to time, oriented to situation, CN II-XII grossly intact. ABSENT: motor sensory deficit Psychiatric exam: PRESENT: appropriate affect, normal mood. ABSENT: homicidal ideation, suicidal ideation Skin exam: PRESENT: dry, intact, warm. ABSENT: cyanosis, rash Results Laboratory Results: 07/20/18 04:14 07/20/18 04:14 07/19/18 07/19/18 07/20/18 20:07 20:07 04:14 WBC 16.2 H RBC 3.41 L Hgb 9.3 L Hct 29.8 L MCV 87 MCH 27.4 MCHC 31.4 L RDW 16.4 H Plt Count 385 Seg Neutrophils % Not Reportable Lymphocytes % Not Reportable Monocytes % Not Reportable Eosinophils % Not Reportable Basophils % Not Reportable Absolute Neutrophils Not Reportable Absolute Lymphocytes Not Reportable Absolute Monocytes Not Reportable Absolute Eosinophils Not Reportable Absolute Basophils Not Reportable Retic Count (auto) 1.91 Absolute Retic 0.064 Sodium Potassium Chloride Carbon Dioxide Anion Gap BUN Creatinine Est GFR ( Amer) Est GFR (Non-Af Amer) Glucose Calcium Iron 21.2 L TIBC 234 L % Saturation 9 Ferritin 65.90 Vitamin B12 711.0 Folate > 20.00 07/20/18 04:14 WBC RBC Hgb Hct MCV MCH MCHC RDW Plt Count Seg Neutrophils % Lymphocytes % Monocytes % Eosinophils % Basophils % Absolute Neutrophils Absolute Lymphocytes Absolute Monocytes Absolute Eosinophils Absolute Basophils Retic Count (auto) Absolute Retic Sodium 138.2 Potassium 4.5 Chloride 94 L Carbon Dioxide 39 H Anion Gap 5 BUN 8 Creatinine 0.51 L Est GFR ( Amer) > 60 Est GFR (Non-Af Amer) > 60 Glucose 115 H Calcium 8.7 Iron TIBC % Saturation Ferritin Vitamin B12 Folate 07/19/18 07/19/18 07/20/18 20:07 20:07 04:14 Creatine Kinase < 20 L < 20 L CK-MB (CK-2) 0.38 Troponin I < 0.012 07/20/18 04:14 Creatine Kinase CK-MB (CK-2) 0.33 Troponin I < 0.012 Impressions: Chest X-Ray 07/19/18 18:03 IMPRESSION: Cardiomegaly without pulmonary edema. Assessment & Plan - Diagnosis (1) Atrial fibrillation with rapid ventricular response Is this a current diagnosis for this admission?: Yes Plan: Suboptimal rate control, optimize diltiazem. Continue Eliquis (2) COPD exacerbation Is this a current diagnosis for this admission?: Yes Plan: Flutter valve, supplemental oxygen, Flonase and empiric antibiotics and prednisone for chronic bronchitis (3) Hypercapnia Is this a current diagnosis for this admission?: Yes Plan: BiPAP and education (4) Anemia Qualifiers: Anemia type: unspecified type Qualified Code(s): D64.9 - Anemia, unspecified Is this a current diagnosis for this admission?: Yes Plan: Microcytic, likely iron deficient, IV iron, follow-up anemia labs (5) Chronic systolic (congestive) heart failure Is this a current diagnosis for this admission?: Yes Plan: Compensated, resume outpatient regiment - Time Time Spent: 50 to 70 Minutes - Inpatient Certification Medical Necessity: Need Close Monitoring Due to Risk of Patient Decompensation
[2018-07-20] MEDS ORDERED: IRON SUCROSE COMPLEX INJ/PF 100 MG/5 ML SDV IV ONE (07:00)
[2018-07-20] MEDS: BUDESONIDE NEB 0.5 MG/2 ML AMPUL NEB SCH ×2 (09:03→21:21)
[2018-07-20] MEDS: DILTIAZEM HCL 180 MG CAPSULE.CR PO SCH ×2 (09:12→21:39)
[2018-07-20] MEDS: ASPIRIN 81 MG TABLET, ENT COATED PO SCH (09:13)
[2018-07-20] MEDS: APIXABAN 2.5 MG TABLET PO SCH ×2 (09:13→18:05)
[2018-07-20] MEDS: PREDNISONE 20 MG TABLET PO SCH ×2 (09:13→18:05)
[2018-07-20] MEDS: FLUTICASONE NASAL SPRAY 50 MCG/SPRY 120 SPRAY/16 GM NAREB SCH ×2 (09:13→21:40)
[2018-07-20] MEDS: OLANZAPINE 2.5 MG TABLET PO SCH (09:14)
[2018-07-20] MEDS ORDERED: LORAZEPAM 0.5 MG TABLET PO PRN (11:29)
[2018-07-20 12:40] LABS: CREATINE KINASE MB 0.39 ng/mL (<4.55)
[2018-07-20 12:45] LABS: TROPONIN I < 0.012 ng/mL
--- NOTE | 2018-07-20 12:58 | PDOC PROGRESS REPORT ---
Subjective Progress Note for:: 07/20/18 Subjective:: The patient is a 72-year-old female with a past medical history of CHF (LVEF 35% ), CAD, hypertension, atrial fibrillation, oxygen dependent/BiPAP dependent COPD , GERD, arthritis, and anemia who was admitted 07/19/18 for atrial fibrillation with RVR and COPD exacerbation. The patient is seen on morning rounds. She is found sitting upright in bed on supplemental oxygen via nasal cannula. She is noted to have even and unlabored breathing to be speaking in full sentences without pauses. The patient denies chest pain, palpitations, dyspnea, orthopnea, cough, abdominal pain, nausea and vomiting. She does report that she had chest tightness radiated to her left arm intermittently over the last 2 days which is part of what prompted her to be evaluated in the emergency department last night. She denies any active chest discomfort at this time. The patient was noted to be anxious and agitated with regard to her previous hospital admission and previous ED visit, but has no specific addressable concerns. She has no other questions or concerns at this time. No concerns per nursing. Reason For Visit: ACUTE ON CHRONIC RESP FAILURE/CHEST PAIN Physical Exam Vital Signs: Temp Pulse Resp BP Pulse Ox 98.3 F 100 18 121/52 L 98 07/20/18 12:18 07/20/18 12:18 07/20/18 12:18 07/20/18 12:18 07/20/18 12:18 Intake & Output 07/19/18 07/20/18 07/21/18 06:59 06:59 06:59 Intake Total 630 Balance 630 Weight 58.6 kg General appearance: PRESENT: no acute distress, well-developed, well-nourished Head exam: PRESENT: atraumatic, normocephalic Eye exam: PRESENT: conjunctiva pink, EOMI, PERRLA. ABSENT: scleral icterus Ear exam: PRESENT: normal external ear exam Mouth exam: PRESENT: moist, tongue midline Neck exam: ABSENT: carotid bruit, JVD, lymphadenopathy, thyromegaly Respiratory exam: PRESENT: clear to auscultation jaime, decreased breath sounds - Bibasilar, symmetrical, unlabored, other - Supplemental oxygen via nasal cannula. ABSENT: rales, rhonchi, wheezes Cardiovascular exam: PRESENT: RRR. ABSENT: diastolic murmur, rubs, systolic murmur Pulses: PRESENT: normal dorsalis pedis pul Vascular exam: PRESENT: normal capillary refill GI/Abdominal exam: PRESENT: normal bowel sounds, soft. ABSENT: distended, guarding, mass, organolmegaly, rebound, tenderness Rectal exam: PRESENT: deferred Extremities exam: PRESENT: full ROM. ABSENT: calf tenderness, clubbing, pedal edema Neurological exam: PRESENT: alert, awake, oriented to person, oriented to place , oriented to time, oriented to situation, CN II-XII grossly intact. ABSENT: motor sensory deficit Psychiatric exam: PRESENT: agitated, appropriate affect, normal mood. ABSENT: homicidal ideation, suicidal ideation Skin exam: PRESENT: dry, intact, warm. ABSENT: cyanosis, rash Results Laboratory Results: 07/20/18 04:14 07/20/18 04:14 07/19/18 07/19/18 07/20/18 20:07 20:07 04:14 WBC 16.2 H RBC 3.41 L Hgb 9.3 L Hct 29.8 L MCV 87 MCH 27.4 MCHC 31.4 L RDW 16.4 H Plt Count 385 Seg Neutrophils % Not Reportable Lymphocytes % Not Reportable Monocytes % Not Reportable Eosinophils % Not Reportable Basophils % Not Reportable Absolute Neutrophils Not Reportable Absolute Lymphocytes Not Reportable Absolute Monocytes Not Reportable Absolute Eosinophils Not Reportable Absolute Basophils Not Reportable Retic Count (auto) 1.91 Absolute Retic 0.064 Sodium Potassium Chloride Carbon Dioxide Anion Gap BUN Creatinine Est GFR ( Amer) Est GFR (Non-Af Amer) Glucose Calcium Iron 21.2 L TIBC 234 L % Saturation 9 Ferritin 65.90 Vitamin B12 711.0 Folate > 20.00 07/20/18 04:14 WBC RBC Hgb Hct MCV MCH MCHC RDW Plt Count Seg Neutrophils % Lymphocytes % Monocytes % Eosinophils % Basophils % Absolute Neutrophils Absolute Lymphocytes Absolute Monocytes Absolute Eosinophils Absolute Basophils Retic Count (auto) Absolute Retic Sodium 138.2 Potassium 4.5 Chloride 94 L Carbon Dioxide 39 H Anion Gap 5 BUN 8 Creatinine 0.51 L Est GFR ( Amer) > 60 Est GFR (Non-Af Amer) > 60 Glucose 115 H Calcium 8.7 Iron TIBC % Saturation Ferritin Vitamin B12 Folate 07/19/18 07/19/18 07/20/18 20:07 20:07 04:14 Creatine Kinase < 20 L < 20 L CK-MB (CK-2) 0.38 Troponin I < 0.012 07/20/18 07/20/18 04:14 11:55 Creatine Kinase < 20 L CK-MB (CK-2) 0.33 Troponin I < 0.012 Impressions: Chest X-Ray 07/19/18 18:03 IMPRESSION: Cardiomegaly without pulmonary edema. Assessment & Plan - Diagnosis (1) Atrial fibrillation with rapid ventricular response Is this a current diagnosis for this admission?: Yes Plan: Currently rate controlled; likely was secondary to COPD exacerbation. The patient is admitted to the medical floor on continuous cardiac telemetry. Continue diltiazem 180 mg twice daily. Continue Eliquis and daily aspirin therapy. Will assess TSH with a.m. labs. (2) COPD exacerbation Is this a current diagnosis for this admission?: Yes Plan: Acute exacerbation is resolved. The patient his home O2 and BiPAP dependent. She is provided supplemental oxygen as needed to maintain oxygen saturations greater than 88%. BiPAP nightly and as needed. Scheduled and as needed nebulizer treatments. Empiric Levaquin for possible bronchitis. Have resumed the patient's home dose Daliresp and Singulair. Robitussin every 4 hours as needed. Flutter valve to bedside. (3) Chest pain Qualifiers: Chest pain type: unspecified Qualified Code(s): R07.9 - Chest pain, unspecified Is this a current diagnosis for this admission?: Yes (4) Anemia Qualifiers: Anemia type: iron deficiency Iron deficiency anemia type: unspecified iron deficiency Qualified Code(s): D50.9 - Iron deficiency anemia, unspecified Is this a current diagnosis for this admission?: Yes Plan: Microcytic anemia; anemia panel does confirm iron deficiency. She has been provided IV Venofer. (5) Chronic systolic (congestive) heart failure Is this a current diagnosis for this admission?: Yes Plan: Patient denies being aware of history of CHF. Echocardiogram from 2017 does confirm LVEF 35% with moderate diastolic dysfunction. She is compensated at present; proBNP 659, no peripheral edema, lung angela are clear, no pulmonary edema noted by CXR. Continue patient home medication regiment. Cardiac diet, daily weights, strict I's and O's. (6) Chronic respiratory failure with hypercapnia Is this a current diagnosis for this admission?: Yes Plan: The patient has chronic respiratory failure with hypercapnia secondary to advanced COPD. The patient is home O2 and BiPAP dependent. ABG on admission reveals compensated respiratory acidosis with a CO2 of 69. Previous ABGs reveal baseline PCO2 of 50-60; has been as high as 195 in the past. Plan for COPD as above. Additionally, will consult palliative care. (7) Chest pain Qualifiers: Chest pain type: unspecified Qualified Code(s): R07.9 - Chest pain, unspecified Is this a current diagnosis for this admission?: Yes Plan: Likely secondary to A. fib with RVR and COPD exacerbation. Pain has subsequently resolved. Serial troponins are negative 3. BNP and chest x-ray are acceptable. EKG is pending. Continue daily aspirin, statin, Eliquis therapy. Patient is now rate controlled on diltiazem. Metoprolol is discontinued, otherwise continuing outpatient medications. - Time Time Spent with patient: 35 or more minutes Medications reviewed and adjusted accordingly: Yes Anticipated discharge: Home Within: within 24 hours - weather/safety permiting
[2018-07-20] MEDS ORDERED: MULTIVITAMIN TABLET PO ONE (13:09)
[2018-07-20] MEDS ORDERED: LORAZEPAM 0.5 MG TABLET ONE (13:09)
[2018-07-20] MEDS: MULTIVITAMIN TABLET PO SCH (13:14)
[2018-07-20] MEDS: OXYCODONE HCL IR 5 MG TABLET PO PRN ×2 (13:14→21:59)
[2018-07-20] MEDS ORDERED: LEVALBUTEROL HCL NEB 1.25 MG/3 ML AMPUL NEB ONE (14:15)
[2018-07-20] MEDS ORDERED: LEVOFLOXACIN 750 MG/D5W RTU 750 MG/150 ML RTUPB IV SCH (18:00)
[2018-07-20] MEDS: MONTELUKAST SODIUM 10 MG TABLET PO SCH (21:37)
[2018-07-20] MEDS: TOLTERODINE TARTRATE 1 MG TABLET PO SCH (21:38)
[2018-07-20] MEDS: LEVOFLOXACIN 750 MG TABLET PO SCH (21:39)
[2018-07-20] MEDS ORDERED: METOPROLOL SUCCINATE 25 MG TAB.SR.24H PO SCH (22:00)
--- NOTE | 2018-07-20 23:56 | EKG REPORT ---
SEVERITY:- ABNORMAL ECG - SINUS RHYTHM SHORT FL INTERVAL, ACCELERATED AV CONDUCTION : Confirmed by: Emmett Troncoso 20-Jul-2018 23:54:50
[2018-07-21] MEDS: IPRATROPIUM BROMIDE 0.02% NEB 0.5 MG/2.5 ML AMPUL NEB SCH ×4 (02:38→19:36)
[2018-07-21] MEDS: LEVALBUTEROL HCL NEB 1.25 MG/3 ML AMPUL NEB SCH ×4 (02:38→19:36)
[2018-07-21 04:27] LABS: MEAN CORPUSCULAR HEMOGLOBIN 27.8 pg (27.0-33.4); MEAN CORPUSCULAR HGB CONC 32.2 g/dL (32.0-36.0); MEAN CORPUSCULAR VOLUME 86 fl (80-97); PLATELET COUNT 347 10^3/uL (150-450); RED BLOOD COUNT 3.25 10^6/uL (3.72-5.28); RED CELL DISTRIBUTION WIDTH 16.6 % (11.5-14.0); WHITE BLOOD COUNT 19.6 10^3/uL (4.0-10.5)
[2018-07-21 04:44] LABS: BLOOD UREA NITROGEN 13 mg/dL (7-20); CALCIUM 9.3 mg/dL (8.4-10.2); CHLORIDE 94 mmol/L (98-107); GLUCOSE 139 mg/dL (75-110); POTASSIUM 4.2 mmol/L (3.6-5.0)
[2018-07-21 04:53] LABS: ANION GAP 3 (5-19); CARBON DIOXIDE 41 mmol/L (22-30)
[2018-07-21] MEDS: LANSOPRAZOLE 30 MG TAB.RAP.DR PO SCH (08:05)
[2018-07-21] MEDS: BUDESONIDE NEB 0.5 MG/2 ML AMPUL NEB SCH ×2 (08:11→19:36)
[2018-07-21] MEDS: DILTIAZEM HCL 180 MG CAPSULE.CR PO SCH ×2 (09:06→22:10)
[2018-07-21] MEDS: ROFLUMILAST 500 MCG TABLET PO SCH (09:06)
[2018-07-21] MEDS: PREDNISONE 20 MG TABLET PO SCH ×2 (09:06→17:20)
[2018-07-21] MEDS: FLUTICASONE NASAL SPRAY 50 MCG/SPRY 120 SPRAY/16 GM NAREB SCH ×2 (09:07→22:05)
[2018-07-21] MEDS: APIXABAN 2.5 MG TABLET PO SCH ×2 (09:07→17:20)
[2018-07-21] MEDS: MULTIVITAMIN TABLET PO SCH (09:07)
[2018-07-21] MEDS: ASPIRIN 81 MG TABLET, ENT COATED PO SCH (09:07)
[2018-07-21] MEDS: PRAMIPEXOLE DI-HCL 0.25 MG TABLET PO SCH (09:07)
[2018-07-21] MEDS: OLANZAPINE 2.5 MG TABLET PO SCH (09:07)
[2018-07-21] MEDS: TOLTERODINE TARTRATE 1 MG TABLET PO SCH ×2 (09:07→22:06)
[2018-07-21] MEDS ORDERED: (PENDING PHARMACY ID) (Tolterodine Tartrate [Detrol La] 2 MG) PO SCH (10:00)
[2018-07-21] MEDS ORDERED: (PENDING PHARMACY ID) (Roflumilast [Daliresp 500 Mcg Tablet] 500 MCG) PO SCH (10:00)
[2018-07-21] MEDS: OXYCODONE HCL IR 5 MG TABLET PO PRN ×2 (13:59→22:10)
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
[2018-07-21] MEDS: LEVOFLOXACIN 750 MG TABLET PO SCH (17:20)
[2018-07-21] MEDS: ATORVASTATIN CALCIUM 10 MG TABLET PO SCH (22:05)
[2018-07-21] MEDS: MONTELUKAST SODIUM 10 MG TABLET PO SCH (22:10)
[2018-07-22] MEDS: LEVALBUTEROL HCL NEB 1.25 MG/3 ML AMPUL NEB SCH ×4 (02:47→20:08)
[2018-07-22] MEDS: IPRATROPIUM BROMIDE 0.02% NEB 0.5 MG/2.5 ML AMPUL NEB SCH ×4 (02:47→20:08)
[2018-07-22] MEDS: LANSOPRAZOLE 30 MG TAB.RAP.DR PO SCH (06:10)
[2018-07-22] MEDS: OXYCODONE HCL IR 5 MG TABLET PO PRN ×2 (06:10→15:23)
[2018-07-22 07:14] LABS: ANION GAP 6 (5-19); BLOOD UREA NITROGEN 23 mg/dL (7-20); CALCIUM 9.7 mg/dL (8.4-10.2); CARBON DIOXIDE 38 mmol/L (22-30); CHLORIDE 93 mmol/L (98-107); GLUCOSE 106 mg/dL (75-110); POTASSIUM 4.5 mmol/L (3.6-5.0)
[2018-07-22] MEDS: BUDESONIDE NEB 0.5 MG/2 ML AMPUL NEB SCH ×2 (07:58→20:08)
[2018-07-22] MEDS: PREDNISONE 20 MG TABLET PO SCH ×2 (11:19→18:11)
[2018-07-22] MEDS: MULTIVITAMIN TABLET PO SCH (11:19)
[2018-07-22] MEDS: ASPIRIN 81 MG TABLET, ENT COATED PO SCH (11:19)
[2018-07-22] MEDS: FLUTICASONE NASAL SPRAY 50 MCG/SPRY 120 SPRAY/16 GM NAREB SCH ×2 (11:25→23:33)
[2018-07-22] MEDS: OLANZAPINE 2.5 MG TABLET PO SCH (11:26)
[2018-07-22] MEDS: TOLTERODINE TARTRATE 1 MG TABLET PO SCH ×2 (11:26→23:33)
[2018-07-22] MEDS: PRAMIPEXOLE DI-HCL 0.25 MG TABLET PO SCH (11:26)
[2018-07-22] MEDS: ROFLUMILAST 500 MCG TABLET PO SCH (11:26)
[2018-07-22] MEDS: APIXABAN 2.5 MG TABLET PO SCH ×2 (11:27→18:11)
[2018-07-22] MEDS: DILTIAZEM HCL 180 MG CAPSULE.CR PO SCH ×2 (11:27→23:32)
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
[2018-07-22] MEDS: LEVOFLOXACIN 750 MG TABLET PO SCH (18:11)
[2018-07-22] MEDS: MONTELUKAST SODIUM 10 MG TABLET PO SCH (23:33)
[2018-07-22] MEDS: ATORVASTATIN CALCIUM 10 MG TABLET PO SCH (23:33)
[2018-07-23] MEDS: IPRATROPIUM BROMIDE 0.02% NEB 0.5 MG/2.5 ML AMPUL NEB SCH ×4 (02:24→20:57)
[2018-07-23] MEDS: LEVALBUTEROL HCL NEB 1.25 MG/3 ML AMPUL NEB SCH ×4 (02:24→20:57)
--- NOTE | 2018-07-23 05:17 | EKG REPORT ---
SEVERITY:- OTHERWISE NORMAL ECG - SINUS RHYTHM ATRIAL PREMATURE COMPLEX : Confirmed by: Emmett Troncoso 23-Jul-2018 05:17:11
[2018-07-23] MEDS: LANSOPRAZOLE 30 MG TAB.RAP.DR PO SCH (05:33)
[2018-07-23] MEDS: BUDESONIDE NEB 0.5 MG/2 ML AMPUL NEB SCH ×2 (08:12→20:57)
[2018-07-23] MEDS: ASPIRIN 81 MG TABLET, ENT COATED PO SCH (09:04)
[2018-07-23] MEDS: DILTIAZEM HCL 180 MG CAPSULE.CR PO SCH ×2 (09:04→23:49)
[2018-07-23] MEDS: PRAMIPEXOLE DI-HCL 0.25 MG TABLET PO SCH (09:04)
[2018-07-23] MEDS: TOLTERODINE TARTRATE 1 MG TABLET PO SCH ×2 (09:04→23:51)
[2018-07-23] MEDS: APIXABAN 2.5 MG TABLET PO SCH ×2 (09:04→17:46)
[2018-07-23] MEDS: OLANZAPINE 2.5 MG TABLET PO SCH (09:04)
[2018-07-23] MEDS: MULTIVITAMIN TABLET PO SCH (09:04)
[2018-07-23] MEDS: PREDNISONE 20 MG TABLET PO SCH ×2 (09:04→17:45)
[2018-07-23] MEDS: ROFLUMILAST 500 MCG TABLET PO SCH (09:04)
[2018-07-23] MEDS: FLUTICASONE NASAL SPRAY 50 MCG/SPRY 120 SPRAY/16 GM NAREB SCH ×2 (09:05→23:51)
[2018-07-23] MEDS: OXYCODONE HCL IR 5 MG TABLET PO PRN ×2 (09:29→19:55)
[2018-07-23] MEDS: LEVOFLOXACIN 750 MG TABLET PO SCH (17:46)
--- NOTE | 2018-07-23 18:43 | PDOC PROGRESS REPORT ---
Subjective Progress Note for:: 07/23/18 Subjective:: The patient is a 72-year-old female with a past medical history of CHF (LVEF 35% ), CAD, hypertension, atrial fibrillation, oxygen dependent/BiPAP dependent COPD , GERD, arthritis, and anemia who was admitted 07/19/18 for atrial fibrillation with RVR and COPD exacerbation. The patient is seen on afternoon rounds. She is found sitting up to the edge of the bed on her baseline supplemental oxygen requirement. The patient denies chest pain, palpitations, dyspnea (beyond her normal), orthopnea, abdominal pain, nausea and vomiting. Her only medical complaint at this time is feeling tremulous, especially after ambulating. She does confirm that she has had a slight tremor but that this is worse than her normal. Otherwise, she has no other medical questions or concerns at this time. She has not appealed her discharge; have the opportunity meet with discharge planning today. She is agreeable to SNF placement and I am told that referrals have been sent out. No concerns per nursing. Reason For Visit: ACUTE ON CHRONIC RESP FAILURE/CHEST PAIN Physical Exam Vital Signs: Temp Pulse Resp BP Pulse Ox 98.3 F 99 20 133/61 H 95 07/23/18 16:35 07/23/18 16:35 07/23/18 16:35 07/23/18 16:35 07/23/18 16:35 Intake & Output 07/22/18 07/23/18 07/24/18 06:59 06:59 06:59 Intake Total 1094 987 Balance 1094 987 Weight 57.6 kg 58.6 kg General appearance: PRESENT: no acute distress, well-developed, well-nourished Head exam: PRESENT: atraumatic, normocephalic Eye exam: PRESENT: conjunctiva pink, EOMI, PERRLA. ABSENT: scleral icterus Ear exam: PRESENT: normal external ear exam Mouth exam: PRESENT: moist, tongue midline Neck exam: ABSENT: carotid bruit, JVD, lymphadenopathy, thyromegaly Respiratory exam: PRESENT: clear to auscultation jaime, symmetrical, unlabored, other - At her baseline oxygen requirement. ABSENT: rales, rhonchi, wheezes Cardiovascular exam: PRESENT: RRR, +S1, +S2. ABSENT: diastolic murmur, rubs, systolic murmur Pulses: PRESENT: normal dorsalis pedis pul Vascular exam: PRESENT: normal capillary refill GI/Abdominal exam: PRESENT: normal bowel sounds, soft. ABSENT: distended, guarding, mass, organolmegaly, rebound, tenderness Rectal exam: PRESENT: deferred Extremities exam: PRESENT: full ROM. ABSENT: calf tenderness, clubbing, pedal edema Neurological exam: PRESENT: alert, awake, oriented to person, oriented to place , oriented to time, oriented to situation, CN II-XII grossly intact, other - Slight resting tremor noted to bilateral hands. ABSENT: motor sensory deficit Psychiatric exam: PRESENT: anxious, appropriate affect, normal mood. ABSENT: homicidal ideation, suicidal ideation Skin exam: PRESENT: dry, intact, warm. ABSENT: cyanosis, rash Results Laboratory Results: 07/21/18 04:09 07/22/18 04:20 07/19/18 07/19/18 07/20/18 20:07 20:07 04:14 Creatine Kinase < 20 L < 20 L CK-MB (CK-2) 0.38 Troponin I < 0.012 07/20/18 07/20/18 07/20/18 04:14 11:55 11:55 Creatine Kinase < 20 L CK-MB (CK-2) 0.33 0.39 Troponin I < 0.012 < 0.012 Impressions: Chest X-Ray 07/19/18 18:03 IMPRESSION: Cardiomegaly without pulmonary edema. Assessment & Plan - Diagnosis (1) Atrial fibrillation with rapid ventricular response Is this a current diagnosis for this admission?: Yes Plan: Resolved; currently normal sinus rhythm. The patient is admitted to the medical floor on continuous cardiac telemetry. Continue diltiazem 180 mg twice daily. Continue metoprolol 12.5 mg twice daily. Continue Eliquis and daily aspirin therapy. Will assess TSH with a.m. labs. (2) COPD exacerbation Is this a current diagnosis for this admission?: Yes Plan: Acute exacerbation has resolved. The patient is home O2 and BiPAP dependent. She has been successfully weaned down to her baseline oxygen requirement. She reports that she is ambulatory to and from the restroom without increased dyspnea, tachypnea, or chest discomfort. She is provided supplemental oxygen as needed to maintain oxygen saturations greater than 88%. BiPAP nightly and as needed. We will continue the patient's home rediment of scheduled nebulizer treatments. As needed nebulizer treatments will also be provided. Empiric Levaquin for possible bronchitis; will complete a 7 day course. Have resumed the patient's home dose Daliresp and Singulair. Robitussin every 4 hours as needed. Flutter valve to bedside. (3) Anemia Qualifiers: Anemia type: iron deficiency Iron deficiency anemia type: unspecified iron deficiency Qualified Code(s): D50.9 - Iron deficiency anemia, unspecified Is this a current diagnosis for this admission?: Yes Plan: Microcytic anemia; anemia panel does confirm iron deficiency. She has been provided IV Venofer. Recommend Hematology follow up given her anemia and chronic leukocytosis. (4) Chronic systolic (congestive) heart failure Is this a current diagnosis for this admission?: Yes Plan: Patient denies being aware of history of CHF. Echocardiogram from 2017 does confirm LVEF 35% with moderate diastolic dysfunction. She is compensated at present; proBNP 659, no peripheral edema, lung angela are clear, no pulmonary edema noted by CXR. Continue patient home medication regiment. Cardiac diet, daily weights. (5) Chronic respiratory failure with hypercapnia Is this a current diagnosis for this admission?: Yes Plan: The patient has chronic respiratory failure with hypercapnia secondary to advanced COPD. The patient is home O2 and BiPAP dependent. ABG on admission reveals compensated respiratory acidosis with a CO2 of 69. Previous ABGs reveal baseline PCO2 of 50-60; has been as high as 195 in the past. Bicarb currently 38. It appears that her baseline is 49-42. Plan for COPD as above. Recommend Palliative Care consultation and follow-up as an outpatient. Unfortunately, they would not be able to assist with inpatient referrals until late in the week. (6) Chest pain Qualifiers: Chest pain type: unspecified Qualified Code(s): R07.9 - Chest pain, unspecified Is this a current diagnosis for this admission?: Yes Plan: Resolved. Likely secondary to A. fib with RVR and COPD exacerbation. Serial troponins are negative 3. BNP and chest x-ray are acceptable. EKG demonstrates normal sinus rhythm with PAC and PVC. No ST segment changes. Continue daily aspirin, statin, Eliquis therapy. Patient is now rate controlled on diltiazem and metoprolol. (7) Leukocytosis, unspecified Qualifiers: Leukocytosis type: unspecified Qualified Code(s): D72.829 - Elevated white blood cell count, unspecified Is this a current diagnosis for this admission?: Yes Plan: The patient is noted to have persistent/chronic leukocytosis. She was admitted with a WBC of 15.2 which has trending slightly upwards to 19.6 while on increased steroid therapy. Previous records indicate that the patient has been chronically elevated since June 2017. She is afebrile. No indication of acutely worsening infectious process. We will begin weaning steroids. Recommend outpatient Hematology follow-up. (8) Hypertension Qualifiers: Hypertension type: unspecified Qualified Code(s): I10 - Essential (primary ) hypertension Is this a current diagnosis for this admission?: Yes Plan: Continue metoprolol and diltiazem (concurrent therapy for afib in setting of severe CHF). Consider addition of ANDRÉS or ARB if she remains hypertensive. Alternately, may benefit from HCTZ. She is euvolemic and so would advise against furosemide at this time. - Time Time Spent with patient: Less than 15 minutes Medications reviewed and adjusted accordingly: Yes Anticipated discharge: Home Within: Other - Once appeals processes is complete; pt is agreeable to SNF for short-term stay if arrangements can be made by discharge planning.
[2018-07-23] MEDS: ATORVASTATIN CALCIUM 10 MG TABLET PO SCH (23:48)
[2018-07-23] MEDS: METOPROLOL TARTRATE 25 MG TABLET PO SCH (23:50)
[2018-07-23] MEDS: MONTELUKAST SODIUM 10 MG TABLET PO SCH (23:51)
[2018-07-24] MEDS: IPRATROPIUM BROMIDE 0.02% NEB 0.5 MG/2.5 ML AMPUL NEB SCH ×4 (02:10→19:43)
[2018-07-24] MEDS: LEVALBUTEROL HCL NEB 1.25 MG/3 ML AMPUL NEB SCH ×4 (02:10→19:43)
[2018-07-24] MEDS: LANSOPRAZOLE 30 MG TAB.RAP.DR PO SCH (06:12)
[2018-07-24] MEDS: BUDESONIDE NEB 0.5 MG/2 ML AMPUL NEB SCH ×2 (08:07→19:43)
[2018-07-24] MEDS: ASPIRIN 81 MG TABLET, ENT COATED PO SCH (09:38)
[2018-07-24] MEDS: MULTIVITAMIN TABLET PO SCH (09:39)
[2018-07-24] MEDS: DILTIAZEM HCL 180 MG CAPSULE.CR PO SCH ×2 (09:39→21:26)
[2018-07-24] MEDS: PREDNISONE 20 MG TABLET PO SCH ×2 (09:39→18:00)
[2018-07-24] MEDS: METOPROLOL TARTRATE 25 MG TABLET PO SCH ×2 (09:39→21:27)
[2018-07-24] MEDS: OLANZAPINE 2.5 MG TABLET PO SCH (09:40)
[2018-07-24] MEDS: PRAMIPEXOLE DI-HCL 0.25 MG TABLET PO SCH (09:40)
[2018-07-24] MEDS: APIXABAN 2.5 MG TABLET PO SCH ×2 (09:40→18:00)
[2018-07-24] MEDS: ROFLUMILAST 500 MCG TABLET PO SCH (09:40)
[2018-07-24] MEDS: TOLTERODINE TARTRATE 1 MG TABLET PO SCH ×2 (09:40→21:26)
[2018-07-24] MEDS: FLUTICASONE NASAL SPRAY 50 MCG/SPRY 120 SPRAY/16 GM NAREB SCH ×2 (09:41→21:28)
[2018-07-24] MEDS: OXYCODONE HCL IR 5 MG TABLET PO PRN ×2 (09:42→21:24)
--- NOTE | 2018-07-24 17:48 | PDOC PROGRESS REPORT ---
Subjective Progress Note for:: 07/24/18 Subjective:: 72-year-old female with a PMH of CHF (LVEF 35%), CAD, HTN, A. fib, oxygen dependent/BiPAP dependent COPD, GERD, arthritis and anemia who was admitted 07/19 for atrial fibrillation with RVR and COPD exacerbation. Patient was seen this morning on rounds. She is found resting in bed on supplemental oxygen. Patient denies chest pain, shortness of breath, palpitations, orthopnea, fever or chills. The patient has no medical complaints at this time. Nursing staff denies any concerns. The patient was discharged yesterday by previous provider, the patient has appealed her discharge with Medicare. Discharge planning is aware. The patient is agreeable to SNF placement, referrals have been sent out. The patient states she is 'afraid to go home because she does not think her backup generator will be able to power' her BIPAP machine at night. Reason For Visit: ACUTE ON CHRONIC RESP FAILURE/CHEST PAIN Physical Exam Vital Signs: Temp Pulse Resp BP Pulse Ox 98.2 F 89 16 135/58 H 96 07/24/18 16:05 07/24/18 16:05 07/24/18 16:05 07/24/18 16:05 07/24/18 16:05 Intake & Output 07/23/18 07/24/18 07/25/18 06:59 06:59 06:59 Intake Total 1094 1105 459 Balance 1094 1105 459 Weight 58.6 kg General appearance: PRESENT: no acute distress, well-developed, well-nourished Eye exam: PRESENT: conjunctiva pink, PERRLA Mouth exam: PRESENT: moist, tongue midline Neck exam: PRESENT: full ROM Respiratory exam: PRESENT: clear to auscultation jaime, symmetrical, unlabored, other - requires supplemental O2 (home dose) Cardiovascular exam: PRESENT: +S1, +S2 Pulses: PRESENT: normal radial pulses, normal dorsalis pedis pul GI/Abdominal exam: PRESENT: normal bowel sounds, soft. ABSENT: tenderness Rectal exam: PRESENT: deferred Extremities exam: PRESENT: full ROM. ABSENT: tenderness Musculoskeletal exam: PRESENT: ambulatory, full ROM Neurological exam: PRESENT: alert, awake, oriented to person, oriented to place , oriented to time, oriented to situation Psychiatric exam: PRESENT: appropriate affect Skin exam: PRESENT: dry, intact, normal color Results Laboratory Results: 07/21/18 04:09 07/22/18 04:20 07/19/18 07/19/18 07/20/18 20:07 20:07 04:14 Creatine Kinase < 20 L < 20 L CK-MB (CK-2) 0.38 Troponin I < 0.012 07/20/18 07/20/18 07/20/18 04:14 11:55 11:55 Creatine Kinase < 20 L CK-MB (CK-2) 0.33 0.39 Troponin I < 0.012 < 0.012 Impressions: Chest X-Ray 07/19/18 18:03 IMPRESSION: Cardiomegaly without pulmonary edema. Status: Imported from PACS Assessment & Plan - Diagnosis (1) Atrial fibrillation with rapid ventricular response Is this a current diagnosis for this admission?: Yes Plan: Resolved; currently normal sinus rhythm. The patient is admitted to the medical floor on continuous cardiac telemetry. Continue diltiazem 180 mg twice daily. Continue metoprolol 12.5 mg twice daily. Continue Eliquis and daily aspirin therapy. TSH this AM is WNL (0.72) (2) COPD exacerbation Is this a current diagnosis for this admission?: Yes Plan: Acute exacerbation has resolved. The patient is home O2 and BiPAP dependent. She has been successfully weaned down to her baseline oxygen requirement. She reports that she is ambulatory to and from the restroom without increased dyspnea, tachypnea, or chest discomfort. She is provided supplemental oxygen as needed to maintain oxygen saturations greater than 88%. BiPAP nightly and as needed. We will continue the patient's home regimen of scheduled nebulizer treatments. As needed nebulizer treatments will also be provided. Empiric Levaquin for possible bronchitis; will complete a 7 day course. Have resumed the patient's home dose Daliresp and Singulair. Robitussin every 4 hours as needed. Flutter valve to bedside. (3) Chest pain Qualifiers: Chest pain type: unspecified Qualified Code(s): R07.9 - Chest pain, unspecified Is this a current diagnosis for this admission?: Yes Plan: Resolved. Likely secondary to A. fib with RVR and COPD exacerbation. Serial troponins are negative 3. BNP and chest x-ray are acceptable. EKG demonstrates normal sinus rhythm with PAC and PVC. No ST segment changes. Continue daily aspirin, statin, Eliquis therapy. Patient is now rate controlled on diltiazem and metoprolol. (4) Chronic respiratory failure with hypercapnia Is this a current diagnosis for this admission?: Yes Plan: The patient has chronic respiratory failure with hypercapnia secondary to advanced COPD. The patient is home O2 and BiPAP dependent. ABG on admission reveals compensated respiratory acidosis with a CO2 of 69. Previous ABGs reveal baseline PCO2 of 50-60; has been as high as 195 in the past. Bicarb recently 38. It appears that her baseline is 49-42. Plan for COPD as above. Recommend Palliative Care consultation and follow-up as an outpatient. Unfortunately, they would not be able to assist with inpatient referrals until late in the week. (5) Hypertension Qualifiers: Hypertension type: unspecified Qualified Code(s): I10 - Essential (primary ) hypertension Is this a current diagnosis for this admission?: Yes Plan: Continue metoprolol and diltiazem (concurrent therapy for afib in setting of severe CHF). Consider addition of ANDRÉS or ARB if she remains hypertensive. Alternately, may benefit from HCTZ. She is euvolemic and so would advise against furosemide at this time. (6) Leukocytosis, unspecified Qualifiers: Leukocytosis type: unspecified Qualified Code(s): D72.829 - Elevated white blood cell count, unspecified Is this a current diagnosis for this admission?: Yes Plan: The patient is noted to have persistent/chronic leukocytosis. She was admitted with a WBC of 15.2 which has trending slightly upwards to 19.6 while on increased steroid therapy. Previous records indicate that the patient has been chronically elevated since June 2017. She is afebrile. No indication of acutely worsening infectious process. Weaned prednisone to 20mg PO BID. Recommend outpatient Hematology follow-up. (7) Anemia Qualifiers: Anemia type: iron deficiency Iron deficiency anemia type: unspecified iron deficiency Qualified Code(s): D50.9 - Iron deficiency anemia, unspecified Is this a current diagnosis for this admission?: Yes Plan: Microcytic anemia; anemia panel does confirm iron deficiency. She has been provided IV Venofer. Recommend Hematology follow up given her anemia and chronic leukocytosis. (8) Chronic systolic (congestive) heart failure Is this a current diagnosis for this admission?: Yes Plan: Patient denies being aware of history of CHF. Echocardiogram from 2017 does confirm LVEF 35% with moderate diastolic dysfunction. She is compensated at present; most recent proBNP 659, no peripheral edema, lung angela are clear, no pulmonary edema noted by CXR. Continue patient home medication regiment. Cardiac diet, daily weights. - Time Time Spent with patient: 15-24 minutes Medications reviewed and adjusted accordingly: Yes Anticipated discharge: Home Within: within 72 hours - Inpatient Certification Based on my medical assessment, after consideration of the patient's comorbidities, presenting symptoms, or acuity I expect that the services needed warrant INPATIENT care.: No I certify that my determination is in accordance with my understanding of Medicare's requirements for reasonable and necessary INPATIENT services [42 CFR 412.3e].: Yes Medical Necessity: Other - Patient was deemed appropriate for discharge yesterday by previous provider. The patient is currently appealing her discharge with medicare. - Plan Summary Plan Summary: Will remain inpatient while patient appeals discharge via medicare
[2018-07-24] MEDS: LEVOFLOXACIN 750 MG TABLET PO SCH (18:00)
[2018-07-24] MEDS: ATORVASTATIN CALCIUM 10 MG TABLET PO SCH (21:25)
[2018-07-24] MEDS: MONTELUKAST SODIUM 10 MG TABLET PO SCH (21:26)
[2018-07-25] MEDS: IPRATROPIUM BROMIDE 0.02% NEB 0.5 MG/2.5 ML AMPUL NEB SCH ×4 (02:24→20:24)
[2018-07-25] MEDS: LEVALBUTEROL HCL NEB 1.25 MG/3 ML AMPUL NEB SCH ×4 (02:24→20:24)
[2018-07-25] MEDS: LANSOPRAZOLE 30 MG TAB.RAP.DR PO SCH (05:39)
[2018-07-25] MEDS: BUDESONIDE NEB 0.5 MG/2 ML AMPUL NEB SCH ×2 (07:54→20:24)
[2018-07-25] MEDS: ASPIRIN 81 MG TABLET, ENT COATED PO SCH (09:03)
[2018-07-25] MEDS: PREDNISONE 20 MG TABLET PO SCH ×2 (09:34→17:15)
[2018-07-25] MEDS: DILTIAZEM HCL 180 MG CAPSULE.CR PO SCH ×2 (09:34→21:30)
[2018-07-25] MEDS: MULTIVITAMIN TABLET PO SCH (09:34)
[2018-07-25] MEDS: METOPROLOL TARTRATE 25 MG TABLET PO SCH ×2 (09:34→21:29)
[2018-07-25] MEDS: ROFLUMILAST 500 MCG TABLET PO SCH (09:35)
[2018-07-25] MEDS: FLUTICASONE NASAL SPRAY 50 MCG/SPRY 120 SPRAY/16 GM NAREB SCH ×2 (09:35→21:29)
[2018-07-25] MEDS: TOLTERODINE TARTRATE 1 MG TABLET PO SCH ×2 (09:35→21:29)
[2018-07-25] MEDS: APIXABAN 2.5 MG TABLET PO SCH ×2 (09:35→17:15)
[2018-07-25] MEDS: PRAMIPEXOLE DI-HCL 0.25 MG TABLET PO SCH (09:36)
[2018-07-25] MEDS: OLANZAPINE 2.5 MG TABLET PO SCH (09:36)
[2018-07-25] MEDS: OXYCODONE HCL IR 5 MG TABLET PO PRN ×2 (14:57→23:25)
[2018-07-25] MEDS: LEVOFLOXACIN 750 MG TABLET PO SCH (17:15)
--- NOTE | 2018-07-25 20:51 | PDOC PROGRESS REPORT ---
Subjective Progress Note for:: 07/25/18 Subjective:: 72-year-old female with a PMH of CHF (LVEF 35%), CAD, HTN, A. fib, oxygen dependent/BiPAP dependent COPD, GERD, arthritis and anemia who was admitted 07/19 for atrial fibrillation with RVR and COPD exacerbation. Patient was seen this morning on rounds. She is found resting in bed on supplemental oxygen. Patient denies chest pain, shortness of breath, palpitations, orthopnea, fever or chills. The patient has no medical complaints at this time. Nursing staff denies any concerns. The patient was discharged 07/23 by previous provider, the patient has appealed her discharge with Medicare. Discharge planning is aware. The patient is agreeable to SNF placement. The patient has an offer at [facility] [place] in [place] but states she does not want to "go that far away." Discussed with Nacho Carroll of discharge planning. She will discuss post-[facility] placement with patient this afternoon. Reason For Visit: ACUTE ON CHRONIC RESP FAILURE/CHEST PAIN Physical Exam Vital Signs: Temp Pulse Resp BP Pulse Ox 98.7 F 87 18 151/58 H 92 07/25/18 16:02 07/25/18 16:02 07/25/18 16:02 07/25/18 16:02 07/25/18 16:02 Intake & Output 07/24/18 07/25/18 07/26/18 06:59 06:59 06:59 Intake Total 1105 459 742 Balance 1105 459 742 Weight 58.5 kg 58.3 kg General appearance: PRESENT: no acute distress, well-developed, well-nourished Head exam: PRESENT: atraumatic, normocephalic Eye exam: PRESENT: conjunctiva pink, EOMI, PERRLA. ABSENT: scleral icterus Ear exam: PRESENT: normal external ear exam Mouth exam: PRESENT: moist, tongue midline Neck exam: ABSENT: carotid bruit, JVD, lymphadenopathy, thyromegaly Respiratory exam: PRESENT: clear to auscultation jaime, symmetrical, unlabored, other - on supplemental o2 via nasal cannula. ABSENT: rales, rhonchi, wheezes Cardiovascular exam: PRESENT: RRR, +S1, +S2. ABSENT: diastolic murmur, rubs, systolic murmur Pulses: PRESENT: normal dorsalis pedis pul Vascular exam: PRESENT: normal capillary refill GI/Abdominal exam: PRESENT: normal bowel sounds, soft. ABSENT: distended, guarding, mass, organolmegaly, rebound, tenderness Rectal exam: PRESENT: deferred Extremities exam: PRESENT: full ROM. ABSENT: calf tenderness, clubbing, pedal edema Musculoskeletal exam: PRESENT: ambulatory, full ROM Neurological exam: PRESENT: alert, awake, oriented to person, oriented to place , oriented to time, oriented to situation Psychiatric exam: PRESENT: appropriate affect, normal mood Skin exam: PRESENT: dry, intact, warm Results Laboratory Results: 07/21/18 04:09 07/22/18 04:20 07/19/18 20:07 Blood Blood Culture - Final NO GROWTH IN 5 DAYS 07/19/18 07/19/18 07/20/18 20:07 20:07 04:14 Creatine Kinase < 20 L < 20 L CK-MB (CK-2) 0.38 Troponin I < 0.012 07/20/18 07/20/18 07/20/18 04:14 11:55 11:55 Creatine Kinase < 20 L CK-MB (CK-2) 0.33 0.39 Troponin I < 0.012 < 0.012 Impressions: Chest X-Ray 07/19/18 18:03 IMPRESSION: Cardiomegaly without pulmonary edema. Status: Imported from PACS Assessment & Plan - Diagnosis (1) Atrial fibrillation with rapid ventricular response Is this a current diagnosis for this admission?: Yes Plan: Resolved; currently normal sinus rhythm. When looking at the trend of her vital signs, the patient has remained rate controlled throughout her hospitalization. The patient is admitted to the medical floor on continuous cardiac telemetry. Continue diltiazem 180 mg twice daily. Continue metoprolol 12.5 mg twice daily. Continue Eliquis and daily aspirin therapy. TSH this AM is WNL (0.72) (2) COPD exacerbation Is this a current diagnosis for this admission?: Yes Plan: Acute exacerbation has resolved. The patient is home O2 and BiPAP dependent. She has been successfully weaned down to her baseline oxygen requirement. She reports that she is ambulatory to and from the restroom without increased dyspnea, tachypnea, or chest discomfort. She is provided supplemental oxygen as needed to maintain oxygen saturations greater than 88%. BiPAP nightly and as needed. We will continue the patient's home regimen of scheduled nebulizer treatments. As needed nebulizer treatments will also be provided. Empiric Levaquin for possible bronchitis; will complete a 7 day course. Have resumed the patient's home dose Daliresp and Singulair. Robitussin every 4 hours as needed. Flutter valve to bedside. (3) Chest pain Qualifiers: Chest pain type: unspecified Qualified Code(s): R07.9 - Chest pain, unspecified Is this a current diagnosis for this admission?: Yes Plan: Resolved. Likely secondary to A. fib with RVR and COPD exacerbation. Serial troponins are negative 3. BNP and chest x-ray are acceptable. EKG demonstrates normal sinus rhythm with PAC and PVC. No ST segment changes. Continue daily aspirin, statin, Eliquis therapy. Patient is now rate controlled on diltiazem and metoprolol. In fact, she has remained rate controlled throughout her hospitalization, with the exception of a few spurious recordings of tachycardia. (4) Chronic respiratory failure with hypercapnia Is this a current diagnosis for this admission?: Yes Plan: The patient has chronic respiratory failure with hypercapnia secondary to advanced COPD. The patient is home O2 and BiPAP dependent. ABG on admission reveals compensated respiratory acidosis with a CO2 of 69. Previous ABGs reveal baseline PCO2 of 50-60; has been as high as 195 in the past. Bicarb recently 38. It appears that her baseline is 49-42. Plan for COPD as above. Recommend Palliative Care consultation and follow-up as an outpatient. (5) Hypertension Qualifiers: Hypertension type: unspecified Qualified Code(s): I10 - Essential (primary ) hypertension Is this a current diagnosis for this admission?: Yes Plan: Continue metoprolol and diltiazem (concurrent therapy for afib in setting of severe CHF). Consider addition of ANDRÉS or ARB if she remains hypertensive. Alternately, may benefit from HCTZ. She is euvolemic and so would advise against furosemide at this time. (6) Leukocytosis, unspecified Qualifiers: Leukocytosis type: unspecified Qualified Code(s): D72.829 - Elevated white blood cell count, unspecified Is this a current diagnosis for this admission?: Yes Plan: The patient is noted to have persistent/chronic leukocytosis. She was admitted with a WBC of 15.2 which has trending slightly upwards to 19.6 while on increased steroid therapy. Previous records indicate that the patient has been chronically elevated since June 2017. She is afebrile. No indication of acutely worsening infectious process. Weaned prednisone to 20mg PO BID. Recommend outpatient Hematology follow-up. (7) Anemia Qualifiers: Anemia type: iron deficiency Iron deficiency anemia type: unspecified iron deficiency Qualified Code(s): D50.9 - Iron deficiency anemia, unspecified Is this a current diagnosis for this admission?: Yes Plan: Microcytic anemia; anemia panel does confirm iron deficiency. She has been provided IV Venofer. Recommend Hematology follow up given her anemia and chronic leukocytosis. (8) Chronic systolic (congestive) heart failure Is this a current diagnosis for this admission?: Yes Plan: Patient denies being aware of history of CHF. Echocardiogram from 2017 does confirm LVEF 35% with moderate diastolic dysfunction. She is compensated at present; most recent proBNP 659, no peripheral edema, lung angela are clear, no pulmonary edema noted by CXR. Continue patient home medication regiment. Cardiac diet, daily weights. - Time Time Spent with patient: 15-24 minutes Medications reviewed and adjusted accordingly: Yes Anticipated discharge: SNF Within: within 48 hours - Inpatient Certification Based on my medical assessment, after consideration of the patient's comorbidities, presenting symptoms, or acuity I expect that the services needed warrant INPATIENT care.: No I certify that my determination is in accordance with my understanding of Medicare's requirements for reasonable and necessary INPATIENT services [42 CFR 412.3e].: Yes Post Hospital Care: D/C Support Dba Documentation
[2018-07-25] MEDS: MONTELUKAST SODIUM 10 MG TABLET PO SCH (21:29)
[2018-07-25] MEDS: ATORVASTATIN CALCIUM 10 MG TABLET PO SCH (21:29)
[2018-07-26] MEDS: LEVALBUTEROL HCL NEB 1.25 MG/3 ML AMPUL NEB SCH ×3 (02:25→13:55)
[2018-07-26] MEDS: IPRATROPIUM BROMIDE 0.02% NEB 0.5 MG/2.5 ML AMPUL NEB SCH ×3 (02:25→13:55)
[2018-07-26] MEDS: LANSOPRAZOLE 30 MG TAB.RAP.DR PO SCH (05:39)
[2018-07-26] MEDS: BUDESONIDE NEB 0.5 MG/2 ML AMPUL NEB SCH (08:00)
[2018-07-26] MEDS: METOPROLOL TARTRATE 25 MG TABLET PO SCH (09:12)
[2018-07-26] MEDS: OLANZAPINE 2.5 MG TABLET PO SCH (09:13)
[2018-07-26] MEDS: DILTIAZEM HCL 180 MG CAPSULE.CR PO SCH (09:13)
[2018-07-26] MEDS: APIXABAN 2.5 MG TABLET PO SCH (09:13)
[2018-07-26] MEDS: PREDNISONE 20 MG TABLET PO SCH (09:13)
[2018-07-26] MEDS: MULTIVITAMIN TABLET PO SCH (09:13)
[2018-07-26] MEDS: FLUTICASONE NASAL SPRAY 50 MCG/SPRY 120 SPRAY/16 GM NAREB SCH (09:13)
[2018-07-26] MEDS: TOLTERODINE TARTRATE 1 MG TABLET PO SCH (09:14)
[2018-07-26] MEDS: ROFLUMILAST 500 MCG TABLET PO SCH (09:14)
[2018-07-26] MEDS: ASPIRIN 81 MG TABLET, ENT COATED PO SCH (09:14)
[2018-07-26] MEDS: PRAMIPEXOLE DI-HCL 0.25 MG TABLET PO SCH (09:14)
[2018-07-26] MEDS: OXYCODONE HCL IR 5 MG TABLET PO PRN (09:38)
[2018-07-26 14:03] VITALS: BP 123/46
== END 2018-07-26 14:34 | disposition home or self-care (01) | DRG 189 ==
LOC: ER 17:23 → EH 19:24 → 4N 20:47
PROVIDERS: ADMIT Internal Medicine; ATTEND Internal Medicine
DX: J96.12 Chronic respiratory failure with hypercapnia (principal); J44.1 Chronic obstructive pulmonary disease with (acute) exacerbation; I50.22 Chronic systolic (congestive) heart failure; Z99.12 Encounter for respirator [ventilator] dependence during power failure; I48.91 Unspecified atrial fibrillation; R07.9 Chest pain, unspecified; K21.9 Gastro-esophageal reflux disease without esophagitis; I11.0 Hypertensive heart disease with heart failure; I25.10 Atherosclerotic heart disease of native coronary artery without angina pectoris; D72.829 Elevated white blood cell count, unspecified; D64.9 Anemia, unspecified; Z60.2 Problems related to living alone; Z99.81 Dependence on supplemental oxygen; Z91.19 Patient's noncompliance with other medical treatment and regimen
CPT/HCPCS: 36415; 71045; 80048; 80053; 81001; 82550; 82553; 82607; 82728; 82746; 82803; 83540; 83550; 83880; 84443; 84484; 85025; 85027; 85045; 85610; 85730; 87040; 87086; 93005; 93010; 94640; 94660; 94667; 94668; 94799; 99291; J1756; J1956; J3490; J7512

== ENCOUNTER → 2018-08-28 | Outpatient (CLI) | payer MEDICARE, OTHER ==
--- NOTE | 2018-08-28 13:35 | RADIOLOGY REPORT (SQ) ---
EXAM DESCRIPTION: CHEST 2 VIEWS COMPLETED DATE/TIME: 08/28/2018 1:16 pm REASON FOR STUDY: J43.1 PANLOBULAR EMPHYSEMA COMPARISON: 09/11/2016 EXAM PARAMETERS: NUMBER OF VIEWS: two views TECHNIQUE: Digital Frontal and Lateral radiographic views of the chest acquired. RADIATION DOSE: NA LIMITATIONS: none FINDINGS: LUNGS AND PLEURA: Interstitial markings are prominent but unchanged. No consolidation or effusions. MEDIASTINUM AND HILAR STRUCTURES: No masses or contour abnormalities. HEART AND VASCULAR STRUCTURES: Heart normal size. No evidence for failure. BONES: No acute findings. HARDWARE: None in the chest. OTHER: No other significant finding. IMPRESSION: No acute findings in the chest. TECHNICAL DOCUMENTATION: JOB ID: [id number] [employer]- All Rights Reserved Reading location - IP/workstation name: JOSÉ LUIS
[2018-08-28 14:37] LABS: ABSOLUTE BASOPHILS # (AUTO) 0.1 10^3/uL (0.0-0.2); ABSOLUTE EOSINOPHILS # (AUTO) 0.1 10^3/uL (0.0-0.6); ABSOLUTE LYMPHOCYTES (AUTO) 1.3 10^3/uL (0.5-4.7); ABSOLUTE MONOCYTES (AUTO) 1.2 10^3/uL (0.1-1.4); BASOPHILS % (AUTO) 0.4 % (0-2); EOSINOPHILS % (AUTO) 0.4 % (0-6); HEMATOCRIT 34.9 % (36.0-47.0); LYMPHOCYTES % (AUTO) 7.6 % (13-45); MEAN CORPUSCULAR HGB CONC 31.4 g/dL (32.0-36.0); MEAN CORPUSCULAR VOLUME 89 fl (80-97); MONOCYTES % (AUTO) 7.2 % (3-13); PLATELET COUNT 409 10^3/uL (150-450); RED BLOOD COUNT 3.92 10^6/uL (3.72-5.28); RED CELL DISTRIBUTION WIDTH 16.3 % (11.5-14.0); SEGMENTED NEUTROPHILS % (AUTO) 84.4 % (42-78); TOTAL CELLS COUNTED % (AUTO) 100 %; WHITE BLOOD COUNT 16.7 10^3/uL (4.0-10.5)
--- NOTE | 2018-08-28 18:08 | XCELERA REPORT ---
[address] [address] Transthoracic Echocardiogram Report Name: SMITH IRAHETA Age: 72 yrs Gender: Female : 1945 Patient Status: Preadmit Patient Location: Study Date: 08/28/2018 01:21 PM Height: 60 in Weight: 126 lb BSA: 1.5 m2 Procedure: A complete two-dimensional transthoracic echocardiogram was performed (2D, M-mode, spectral and color flow Doppler). The study was technically adequate with some images being suboptimal in quality. Reason For Study: RHEUMATIC AI Ordering Physician: KAILEE WOLF Performed By: Daljit Berrios Interpretation Summary The left ventricular ejection fraction is normal. Doppler measurements suggest pseudonormalized left ventricular relaxation, which is associated with grade II/IV or mild to moderate diastolic dysfunction There is mild concentric left ventricular hypertrophy. The left ventricle is grossly normal size. Wall motion cannot be accurately commented on, but no definite regional wall motion abnormalities noted. The right ventricular systolic function is normal. Borderline left atrial enlargement. The right atrium is normal in size There is a mild amount of mitral regurgitation There is no mitral valve stenosis. There is mild aortic stenosis There is a mild amount of aortic regurgitation There is a peak gradient of 20 mm of Hg. There is a trace or physiologic amount of tricuspid regurgitation Tricuspid regurgitation jet envelope not well defined to measure RV systolic pressure accurately. The aortic root is not well visualized but is probably normal size. The inferior vena cava appeared normal and decreased > 50% with respiration (RAP 5-10 mmHg) Minimal pericardial effusion. MMode/2D Measurements & Calculations RVDd: 2.7 cm LVIDd: 5.0 cm FS: 16.2 % Ao root diam: 2.9 cm IVSd: 1.0 cm LVIDs: 4.2 cm EDV(Teich): 118.9 ml Ao root area: 6.6 cm2 LVPWd: 0.98 cm ESV(Teich): 78.7 ml LA dimension: 2.7 cm EF(Teich): 33.8 % LVOT diam: 1.7 cm LVOT area: 2.3 cm2 Doppler Measurements & Calculations MV E max carlitos: MV P1/2t max carlitos: Ao V2 max: AI max carlitos: 77.5 cm/sec 74.2 cm/sec 225.9 cm/sec 361.1 cm/sec MV A max carlitos: MV P1/2t: 79.0 msec Ao max PG: AI max P.1 cm/sec MVA(P1/2t): 2.8 cm2 20.4 mmHg 52.1 mmHg MV E/A: 0.71 MV dec slope: Ao V2 mean: AI dec slope: 135.6 cm/sec 221.8 cm/sec2 275.1 cm/sec2 Ao mean PG: AI P1/2t: MV dec time: 9.2 mmHg 476.8 msec 0.22 sec Ao V2 VTI: 35.8 cm ESTIVEN(I,D): 1.7 cm2 ESTIVEN(V,D): 1.5 cm2 LV V1 max PG: SV(LVOT): 62.0 ml PA V2 max: TR max carlitos: 8.8 mmHg 85.4 cm/sec 253.8 cm/sec LV V1 mean PG: PA max PG: TR max P.0 mmHg 2.9 mmHg 25.8 mmHg LV V1 max: 148.1 cm/sec LV V1 mean: 91.0 cm/sec LV V1 VTI: 26.9 cm AV P1/2t-pr_phl: MV P1/2t-pr_phl: 476.8 msec 79.0 msec Left Ventricle The left ventricle is grossly normal size. There is mild concentric left ventricular hypertrophy. The left ventricular ejection fraction is normal. Doppler measurements suggest pseudonormalized left ventricular relaxation, which is associated with grade II/IV or mild to moderate diastolic dysfunction. Wall motion cannot be accurately commented on, but no definite regional wall motion abnormalities noted. Right Ventricle The right ventricle is grossly normal size. There is normal right ventricular wall thickness. The right ventricular systolic function is normal. Atria The right atrium is normal in size. Borderline left atrial enlargement. Interarterial septum not well visualized and not well dopplered. Cannot comment on ASD/PFO presence. Mitral Valve There is mild mitral leaflet calcification. There is mild mitral annular calcification. There is no mitral valve stenosis. There is a mild amount of mitral regurgitation. Aortic Valve The aortic valve is not well visualized secondary to technical limitations. There is mild aortic stenosis. There is a peak gradient of 20 mm of Hg. There is a mild amount of aortic regurgitation. Tricuspid Valve The tricuspid valve is not well visualized, but is grossly normal. There is no tricuspid stenosis. There is a trace or physiologic amount of tricuspid regurgitation. Tricuspid regurgitation jet envelope not well defined to measure RV systolic pressure accurately. Pulmonic Valve The pulmonic valve is not well visualized. Great Vessels The aortic root is not well visualized but is probably normal size. The inferior vena cava appeared normal and decreased > 50% with respiration (RAP 5-10 mmHg). Effusions Minimal pericardial effusion. : KAILEE WOLF > Emmett Troncoso
== END ==
LOC: SP 15:41
PROVIDERS: ATTEND Internal Medicine
DX: J43.1 Panlobular emphysema (principal); I50.9 Heart failure, unspecified; D64.9 Anemia, unspecified
CPT/HCPCS: 36415; 71046; 85025; 93306

== ENCOUNTER 2018-09-03 14:12 | Inpatient (IN) | payer MEDICARE, OTHER ==
[2018-09-03] MEDS ORDERED: NORMAL SALINE 1000 ML 1,000 ML IV ONE (14:30)
--- NOTE | 2018-09-03 14:45 | ER Document Report ---
ED General - General Stated Complaint: SHORTNESS OF BREATH Notes: 72-year-old female with end-stage COPD on home oxygen with poor functional capacity recent admission and discharge for CHF COPD exacerbations along with recently diagnosed Steven lynn now on Eliquis just to the ED with fatigue. Found to be tachycardic in the clinic and referred to the ED. She says that she has been fatigued for about a week and is generally "in rough shape. She says that she was having intermittent chest pressure/pain with palpitations for the past 3 days last occurred about 2 hours ago. No leg swelling. No missed doses of Eliquis and started in July. Last oral intake was early this morning. TRAVEL OUTSIDE OF THE [place] IN LAST 30 DAYS: No - Related Data Allergies/Adverse Reactions: No Known Allergies Allergy (Verified 06/12/18 18:15) Past Medical History - General Information source: Patient - Social History Smoking Status: Former Smoker Family History: CVA, Malignancy - Past Medical History Cardiac Medical History: Reports: Hx Congestive Heart Failure - Ejection fraction of less than 25%, May 2014., Hx Coronary Artery Disease, Hx Hypertension Denies: Hx DVT, Hx Heart Attack, Hx Hypercholesterolemia, Hx Pulmonary Embolism Pulmonary Medical History: Reports: Hx COPD - 3L nasal O2 at home, Hx Pneumonia Denies: Hx Asthma Neurological Medical History: Denies: Hx Cerebrovascular Accident, Hx Seizures Endocrine Medical History: Denies: Hx Diabetes Mellitus Type 1, Hx Diabetes Mellitus Type 2, Hx Hyperthyroidism, Hx Hypothyroidism Renal/ Medical History: Denies: Hx Peritoneal Dialysis GI Medical History: Reports: Hx Gastroesophageal Reflux Disease - Mild, Hx Hiatal Hernia. Denies: Hx Cirrhosis, Hx Hepatitis, Hx Ulcer Musculoskeletal Medical History: Reports Hx Arthritis Psychiatric Medical History: Reports: Hx Depression Infectious Medical History: Denies: Hx Hepatitis Past Surgical History: Reports: Hx Cholecystectomy, Hx Orthopedic Surgery - "back surgery", Other - Last colonoscopy many years ago. Denies: Hx Hysterectomy, Hx Mastectomy, Hx Open Heart Surgery, Hx Pacemaker - Immunizations Hx Diphtheria, Pertussis, Tetanus Vaccination: Yes Hx Pneumococcal Vaccination: 08/06/13 Review of Systems - Review of Systems Notes: REVIEW OF SYSTEMS GEN: Denies fever, chills, weight loss or fatigue. ENT: Denies sore throat, nasal discharge, ear pain EYES: Denies blurry vision, eye pain, discharge CV: Pressure and palpitations, no edema RESP: D baseline cough, slightly increased chronic shortness of breath GI: Denies abdominal pain, nausea, vomiting, diarrhea MSK: Denies joint pain/swelling, edema, SKIN: Denies rash, skin lesions LYMPH: Denies swollen glands/lymph nodes NEURO: Denies headache, focal weakness or numbness, dizziness PSYCH: Denies depression, suicidal or homicidal ideation PHYSICAL EXAMINATION General: Pale and chronically ill Head: Atraumatic, normocephalic ENT: Mouth normal, oropharynx very dry, no exudates or tonsillar enlargement Eyes: Conjunctiva normal, pupils equal, lids normal Neck: No JVD, supple, no guarding CVS: Alert, tachycardic, positive? Diastolic murmur Resp: No resp distress, equal and normal breath sounds bilaterally GI: Nondistended, soft, no tenderness to palpation, no rebound or guarding Ext: No deformities, no edema, normal range of motion in upper and lower ext Back: No CVA or midline TTP Skin: No rash, warm Lymphatic: No lymphadeopathy noted Neuro: Awake, alert. Face symmetric. GCS 15. Physical Exam - Vital signs Vitals: Resp BP Pulse Ox 29 H 130/79 H 97 09/03/18 14:27 09/03/18 14:27 09/03/18 14:27 Course - Re-evaluation Re-evalutation: 09/03/18 14:43 Patient presents with stable narrow complex tachycardia in the setting of multiple comorbidities notably COPD and CHF with poor ejection fraction and functional reserve pulmonary felder. Her initial EKG as well as a repeat about 10 minutes later show a narrow complex regular tachycardia at about 150. Flutter waves are not clearly visible. In some leads I do think perhaps flutter could be the answerthis could be SVT or flutter. I doubt this is A. fib. Patient is anticoagulated, patient is effectively n.p.o. Patient was given a very small fluid bolus given that she looks intravascularly dry. Her pressure was normal and she was in no pain on my evaluationshe was not henceforth electively cardioverted on initial evaluation.will do evaluation for acute coronary syndrome, electrolyte of normalities, pneumonia pneumothorax in the mediastinum and other associated etiologies of her tachycardia. We will do adenosine testdose, to see if flutter is present. Will then rely likely on chemical rate control with calcium channel drew. Will consult cardio G. 09/03/18 15:56 Reassessed at 3:50 PM. Heart rate 130 Cardizem drip being started. Other than chronic CO2 retention the labs are normal. Discussed with Dr. Faustin of cardiology who recommended diltiazem over adenosine secondary to bronchospasm. Discussed with Dr. Wolf, the patient's primary who will admit to the hospital. on - Vital Signs Vital signs: Temp Pulse Resp BP Pulse Ox 97.9 F 29 H 130/79 H 97 09/03/18 14:36 09/03/18 14:27 09/03/18 14:27 09/03/18 14:27 - Laboratory Result Diagrams: 09/03/18 14:25 09/03/18 14:25 Laboratory results interpreted by me: 09/03/18 09/03/18 14:25 14:25 WBC 15.1 H RBC 3.61 L Hgb 10.1 L Hct 32.4 L MCHC 31.3 L RDW 15.9 H Plt Count 479 H Seg Neutrophils % 85.7 H Lymphocytes % 8.2 L Absolute Neutrophils 12.9 H Chloride 90 L Carbon Dioxide 46 H* Anion Gap 4 L Glucose 128 H - Diagnostic Test Radiology reviewed: Image reviewed - EKG Interpretation by Me Rate: Tachycardia Rhythm: SVT When compared to previous EKG there are: Changes noted - SVT versus a flutter. Completely regular narrow. Critical Care Note - Critical Care Note Total time excluding time spent on procedures (mins): 35 Comments: The above patient is critically ill. Not including procedures, but including direct re-evaluations, speaking with patient and/or consultants, interpreting results, and documenting, I spent the total amount of minute listed listed above on critical care time Discharge - Discharge Clinical Impression: Supraventricular tachycardia Condition: Fair Disposition: ADMITTED INPATIENT Admitting Provider: Yuan Unit Admitted: IMCU Referrals: KAILEE WOLF MD [Primary Care Provider] - Follow up as needed
[2018-09-03] MEDS ORDERED: DILTIAZEM HCL INJ 25 MG/5 ML VIAL IV ONE ×2 (14:48→19:00)
[2018-09-03] MEDS ORDERED: CALCIUM GLUCONATE 1000 MG/10 ML INJ IV ONE (14:49)
[2018-09-03 14:51] LABS: ABSOLUTE LYMPHOCYTES (AUTO) 1.2 10^3/uL (0.5-4.7); ABSOLUTE MONOCYTES (AUTO) 0.9 10^3/uL (0.1-1.4); ABSOLUTE NEUT (AUTO) 12.9 10^3/uL (1.7-8.2); BASOPHILS % (AUTO) 0.3 % (0-2); HEMATOCRIT 32.4 % (36.0-47.0); HEMOGLOBIN 10.1 g/dL (12.0-15.5); LYMPHOCYTES % (AUTO) 8.2 % (13-45); MEAN CORPUSCULAR HEMOGLOBIN 28.1 pg (27.0-33.4); MEAN CORPUSCULAR HGB CONC 31.3 g/dL (32.0-36.0); MEAN CORPUSCULAR VOLUME 90 fl (80-97); MONOCYTES % (AUTO) 5.8 % (3-13); PLATELET COUNT 479 10^3/uL (150-450); RED BLOOD COUNT 3.61 10^6/uL (3.72-5.28); RED CELL DISTRIBUTION WIDTH 15.9 % (11.5-14.0); SEGMENTED NEUTROPHILS % (AUTO) 85.7 % (42-78); TOTAL CELLS COUNTED % (AUTO) 100 %; WHITE BLOOD COUNT 15.1 10^3/uL (4.0-10.5)
[2018-09-03 15:17] LABS: BLOOD UREA NITROGEN 16 mg/dL (7-20); CALCIUM 9.1 mg/dL (8.4-10.2); CHLORIDE 90 mmol/L (98-107); GLUCOSE 128 mg/dL (75-110); POTASSIUM 4.5 mmol/L (3.6-5.0)
[2018-09-03 15:24] LABS: SODIUM 139.9 mmol/L (137-145)
[2018-09-03 15:25] LABS: ANION GAP 4 (5-19)
[2018-09-03 15:26] LABS: CARBON DIOXIDE 46 mmol/L (22-30)
[2018-09-03] MEDS: DILTIAZEM HCL/D5W 125 MG/125 ML RTUINJ IV PRN ×2 (15:27→22:22)
--- NOTE | 2018-09-03 15:51 | RADIOLOGY REPORT (SQ) ---
EXAM DESCRIPTION: CHEST SINGLE VIEW COMPLETED DATE/TIME: 09/03/2018 3:34 pm REASON FOR STUDY: SVT COMPARISON: None. EXAM PARAMETERS: NUMBER OF VIEWS: One view. TECHNIQUE: Single frontal radiographic view of the chest acquired. RADIATION DOSE: NA LIMITATIONS: None. FINDINGS: LUNGS AND PLEURA: No opacities, masses or pneumothorax. No pleural effusion. MEDIASTINUM AND HILAR STRUCTURES: No masses. Contour normal. HEART AND VASCULAR STRUCTURES: Heart normal in size. Normal vasculature. BONES: Scoliosis. HARDWARE: None in the chest. OTHER: No other significant finding. IMPRESSION: NO ACUTE RADIOGRAPHIC FINDING IN THE CHEST. TECHNICAL DOCUMENTATION: JOB ID: [id number] [employer]- All Rights Reserved Reading location - IP/workstation name: [email or web address]
[2018-09-03] MEDS ORDERED: ONDANSETRON 4 MG TAB.RAPDIS PO PRN (16:23)
[2018-09-03 17:50] LABS: CREATINE KINASE MB 1.41 ng/mL (<4.55)
[2018-09-03 17:58] LABS: TROPONIN I 0.036 ng/mL
[2018-09-03] MEDS ORDERED: APIXABAN 2.5 MG TABLET PO SCH (18:00)
[2018-09-03] MEDS ORDERED: DOCUSATE SODIUM 100 MG CAPSULE PO SCH (18:00)
[2018-09-03] MEDS: BUDESONIDE NEB 0.5 MG/2 ML AMPUL NEB SCH (19:58)
[2018-09-03] MEDS: LEVALBUTEROL HCL NEB 0.63 MG/3 ML AMPUL NEB PRN ×2 (19:58→22:40)
--- NOTE | 2018-09-03 21:56 | EKG REPORT ---
SEVERITY:- ABNORMAL ECG - SUPRAVENTRICULAR TACHYCARDIA LEFT AXIS DEVIATION NONSPECIFIC T ABNORMALITIES, INFERIOR LEADS : Confirmed by: Susan Ho MD 03-Sep-2018 21:55:50
[2018-09-03] MEDS ORDERED: TEMAZEPAM 7.5 MG CAPSULE PO SCH (22:00)
[2018-09-03] MEDS ORDERED: MONTELUKAST SODIUM 10 MG TABLET PO SCH (22:00)
[2018-09-03] MEDS ORDERED: TOLTERODINE TARTRATE 1 MG TABLET PO SCH (22:00)
[2018-09-03] MEDS ORDERED: METOPROLOL TARTRATE 25 MG TABLET PO SCH (22:00)
[2018-09-03] MEDS ORDERED: ATORVASTATIN CALCIUM 20 MG TABLET PO SCH (22:00)
[2018-09-03 22:35] LABS: ARTERIAL BLOOD BASE EXCESS 15.2 mmol/L; ARTERIAL BLOOD FIO2 32%; ARTERIAL BLOOD H2CO3 2.99 mmol/L (1.05-1.35); ARTERIAL BLOOD HCO3 45.4 mmol/L (20-24); ARTERIAL BLOOD O2 SATURATION 91.9 % (94-98); ARTERIAL BLOOD PH 7.28 (7.35-7.45); ARTERIAL BLOOD PO2 74.7 mmHg (80-100); ARTERIAL BLOOD TOTAL CO2 48.5 mmol/L (21-25)
[2018-09-03 22:36] LABS: ARTERIAL BLOOD PCO2 99.4 mmHg (35-45)
[2018-09-04 00:06] LABS: ARTERIAL BLOOD BASE EXCESS 19.9 mmol/L; ARTERIAL BLOOD HCO3 48.9 mmol/L (20-24); ARTERIAL BLOOD O2 SATURATION 86.8 % (94-98); ARTERIAL BLOOD PH 7.35 (7.35-7.45); ARTERIAL BLOOD TOTAL CO2 51.7 mmol/L (21-25)
[2018-09-04 00:07] LABS: ARTERIAL BLOOD FIO2 30%
[2018-09-04 00:08] LABS: ARTERIAL BLOOD PCO2 89.8 mmHg (35-45)
[2018-09-04 00:18] LABS: CREATINE KINASE MB 1.4 ng/mL (<4.55); TROPONIN I 0.033 ng/mL
[2018-09-04 03:14] LABS: ARTERIAL BLOOD BASE EXCESS 15.3 mmol/L; ARTERIAL BLOOD H2CO3 2.71 mmol/L (1.05-1.35); ARTERIAL BLOOD HCO3 44.3 mmol/L (20-24); ARTERIAL BLOOD O2 SATURATION 90.5 % (94-98); ARTERIAL BLOOD PH 7.31 (7.35-7.45); ARTERIAL BLOOD PO2 67.9 mmHg (80-100); ARTERIAL BLOOD TOTAL CO2 47.1 mmol/L (21-25)
[2018-09-04 03:16] LABS: ARTERIAL BLOOD FIO2 40%
[2018-09-04 03:18] LABS: ARTERIAL BLOOD PCO2 90.1 mmHg (35-45)
[2018-09-04 04:45] LABS: ARTERIAL BLOOD H2CO3 2.67 mmol/L (1.05-1.35); ARTERIAL BLOOD HCO3 43.8 mmol/L (20-24); ARTERIAL BLOOD PH 7.31 (7.35-7.45); ARTERIAL BLOOD PO2 86.1 mmHg (80-100); ARTERIAL BLOOD TOTAL CO2 46.5 mmol/L (21-25)
[2018-09-04 04:46] LABS: ARTERIAL BLOOD PCO2 88.8 mmHg (35-45)
[2018-09-04 04:47] LABS: ARTERIAL BLOOD FIO2 40%
[2018-09-04] MEDS ORDERED: PROPOFOL 1,000 MG/100 ML INFUS..BTL IV ONE (05:23)
[2018-09-04] MEDS ORDERED: PHARMACY COMMUNICATION ORDER MC NR (05:30)
[2018-09-04] MEDS ORDERED: ONDANSETRON 4 MG TAB.RAPDIS NG PRN (05:39)
[2018-09-04] MEDS ORDERED: PROPOFOL INJ 200 MG/20 ML VIAL IV ONE (05:51)
[2018-09-04] MEDS: PROPOFOL 1,000 MG/100 ML INFUS..BTL IV PRN ×4 (05:53→23:27)
[2018-09-04 05:58] LABS: ABSOLUTE BASOPHILS # (AUTO) 0.1 10^3/uL (0.0-0.2); ABSOLUTE MONOCYTES (AUTO) 0.8 10^3/uL (0.1-1.4); ABSOLUTE NEUT (AUTO) 11.4 10^3/uL (1.7-8.2); BASOPHILS % (AUTO) 0.8 % (0-2); EOSINOPHILS % (AUTO) 0.2 % (0-6); HEMOGLOBIN 9.3 g/dL (12.0-15.5); LYMPHOCYTES % (AUTO) 7.1 % (13-45); MEAN CORPUSCULAR HEMOGLOBIN 27.9 pg (27.0-33.4); MEAN CORPUSCULAR HGB CONC 30.9 g/dL (32.0-36.0); MEAN CORPUSCULAR VOLUME 90 fl (80-97); MONOCYTES % (AUTO) 6.2 % (3-13); PLATELET COUNT 388 10^3/uL (150-450); RED BLOOD COUNT 3.32 10^6/uL (3.72-5.28); RED CELL DISTRIBUTION WIDTH 16.4 % (11.5-14.0); SEGMENTED NEUTROPHILS % (AUTO) 85.7 % (42-78); TOTAL CELLS COUNTED % (AUTO) 100 %; WHITE BLOOD COUNT 13.3 10^3/uL (4.0-10.5)
[2018-09-04] MEDS ORDERED: LANSOPRAZOLE 30 MG TAB.RAP.DR NG SCH (06:00)
[2018-09-04] MEDS ORDERED: LANSOPRAZOLE 30 MG TAB.RAP.DR PO SCH (06:00)
--- NOTE | 2018-09-04 06:03 | RADIOLOGY REPORT (SQ) ---
Chest single view on 09/04/2018 at 5:43 AM CLINICAL INDICATION: Intubated COMPARISON: 09/03/2018 FINDINGS: New ET tube tip is in the midthoracic trachea approximately 5.4 cm above the level of the supa. New NG tube extends into the stomach. There is mild elevation of the right hemidiaphragm. The lungs are clear. Cardiac, hilar and mediastinal contours are within normal limits. Pulmonary vascularity is within normal limits. IMPRESSION: No acute disease.
[2018-09-04 06:13] LABS: BLOOD UREA NITROGEN 12 mg/dL (7-20); CHLORIDE 92 mmol/L (98-107); GLUCOSE 93 mg/dL (75-110); POTASSIUM 4.6 mmol/L (3.6-5.0); SODIUM 142.2 mmol/L (137-145)
[2018-09-04 06:20] LABS: ANION GAP 7 (5-19); CREATINE KINASE < 20 U/L (30-135)
[2018-09-04 06:25] LABS: CARBON DIOXIDE 43 mmol/L (22-30)
[2018-09-04 06:26] LABS: CREATINE KINASE MB 0.98 ng/mL (<4.55); TROPONIN I 0.026 ng/mL
--- NOTE | 2018-09-04 06:29 | Progress Note ---
Provider Note Provider Note: Covering provider contacted by patient's nurse for altered mental status. Exam nonfocal with exception to brief awakening with disorientation before falling back to sleep. ABG reveals critical hypercapnia and hypoxia. Transferred to the ICU, BiPAP initiated resolving hypoxia but not hypercapnia. Patient intubated for acute on chronic respiratory failure, follow-up cardiac enzymes, ABG and pulmonology consult.
[2018-09-04] MEDS: LEVALBUTEROL HCL NEB 0.63 MG/3 ML AMPUL NEB PRN ×2 (08:21→20:32)
[2018-09-04] MEDS: BUDESONIDE NEB 0.5 MG/2 ML AMPUL NEB SCH ×2 (08:21→20:32)
[2018-09-04] MEDS ORDERED: DILTIAZEM HCL/D5W 125 MG/125 ML RTUINJ IV PRN (08:51)
--- NOTE | 2018-09-04 09:20 | RADIOLOGY REPORT (SQ) ---
EXAM DESCRIPTION: CHEST SINGLE VIEW COMPLETED DATE/TIME: 09/04/2018 9:04 am REASON FOR STUDY: MECHANICAL VENTILATION COMPARISON: 09/04/2018 at 0536 hours. EXAM PARAMETERS: NUMBER OF VIEWS: One view. TECHNIQUE: Single frontal radiographic view of the chest acquired. RADIATION DOSE: NA LIMITATIONS: Rotated. FINDINGS: LUNGS AND PLEURA: No opacities, masses or pneumothorax. No pleural effusion. MEDIASTINUM AND HILAR STRUCTURES: No masses. Contour normal. HEART AND VASCULAR STRUCTURES: Heart normal in size. Normal vasculature. BONES: No acute findings. HARDWARE: Stable endotracheal tube, tip located 4 cm proximal to the supa. Tip of the nasogastric tube located in the stomach. OTHER: No other significant finding. IMPRESSION: STABLE LIFE LINES. NO ACUTE RADIOGRAPHIC FINDING IN THE CHEST. TECHNICAL DOCUMENTATION: JOB ID: [id number] [employer]- All Rights Reserved Reading location - IP/workstation name: [email or web address]
[2018-09-04 09:21] LABS: ARTERIAL BLOOD BASE EXCESS 15.3 mmol/L; ARTERIAL BLOOD HCO3 39.4 mmol/L (20-24); ARTERIAL BLOOD O2 SATURATION 92.2 % (94-98); ARTERIAL BLOOD PCO2 46.5 mmHg (35-45); ARTERIAL BLOOD PH 7.55 (7.35-7.45); ARTERIAL BLOOD PO2 56.3 mmHg (80-100); ARTERIAL BLOOD TOTAL CO2 40.8 mmol/L (21-25)
[2018-09-04 09:24] LABS: ARTERIAL BLOOD FIO2 30%
--- NOTE | 2018-09-04 09:38 | PDOC H&P ---
History of Present Illness Admission Date/PCP: 09/03/18 15:59 KAILEE WOLF MD Patient complains of: Patient comes in complaining of shortness of breath and palpitations History of Present Illness: SMITH IRAHETA is a 72 year old female history of chronic hypoxic/ hypercapnic respiratory failure, recent atrial fibrillation presented to the hospital with 1 day history of progressive shortness of breath and palpitations. While in the emergency room she was found to have SVT discussion was had with academic counselor on-call patient was placed on IV Cardizem. Laboratory tests from the emergency room were unrevealing except for her usual hypercapnia. Throughout the evening patient started getting altered mental status repeat ABG showed acute on chronic respiratory failure BiPAP was tried without any success and currently she is on a ventilator with blood gases are pending. Past Medical History Cardiac Medical History: Reports: Congestive Heart Failure - Ejection fraction of less than 25%, May 2014., Coronary Artery Disease, Hypertension, Heart Murmur Denies: DVT, Myocardial Infarction, Hyperlipidema, Pulmonary Embolism Pulmonary Medical History: Reports: Chronic Obstructive Pulmonary Disease (COPD ) - 3L nasal O2 at home, Pneumonia Denies: Asthma EENT Medical History: Reports: None Neurological Medical History: Reports: None Denies: Seizures Endocrine Medical History: Denies: Diabetes Mellitus Type 1, Diabetes Mellitus Type 2, Hyperthyroidism, Hypothyroidism Renal/ Medical History: Reports: None Malignancy Medical History: Reports: None GI Medical History: Reports: Gastroesophageal Reflux Disease - Mild, Hiatal Hernia Denies: Cirrhosis, Hepatitis Musculoskeltal Medical History: Reports: Arthritis Skin Medical History: Reports: None Psychiatric Medical History: Reports: Depression Traumatic Medical History: Reports: None Hematology: Reports: Anemia Denies: Sickle Cell Disease Infectious Medical History: Reports: None Past Surgical History Past Surgical History: Reports: Cholecystectomy, Orthopedic Surgery - "back surgery", Other - Last colonoscopy many years ago Denies: Amputation, Hysterectomy, Mastectomy, Pacemaker Social History Lives with: Alone Smoking Status: Former Smoker Frequency of Alcohol Use: None Hx Recreational Drug Use: No Drugs: None Hx Prescription Drug Abuse: No - Advance Directive Resuscitation Status: Full Code Family History Family History: CVA, Malignancy Parental Family History Reviewed: Yes Children Family History Reviewed: Yes Sibling(s) Family History Reviewed.: Yes Medication/Allergy Home Medications: Albuterol Sulfate [Proair HFA] 2 puff IH Q4HP PRN 09/03/18 Budesonide/Formoterol Fumarate [Symbicort 160-4.5 Mcg Inhaler] 2 puff IH BID Docusate Sodium 1 cap PO DAILY 09/03/18 Fluticasone Propionate [Flonase Nasal [place] 50 Mcg/[place] 16 gm] 1 spray NAREB DAILY 09/03/18 Furosemide [Lasix 20 mg Tablet] 1 tab PO BIDP PRN 09/03/18 Levalbuterol HCl [Xopenex Neb 0.63 mg/3 ml Ampul] 1 dose IH Q8H 09/03/18 Metoprolol Succinate 1 tab PO DAILY 09/03/18 Montelukast Sodium 1 tab PO QPM 09/03/18 Multivit-Min/Iron/Folic Acid/K [Multi For Her Softgel] 1 cap PO DAILY 09/03/18 Nitroglycerin 1 tab SL PRN PRN 09/03/18 Olanzapine [Zyprexa 2.5 mg Tablet] 1 tab PO DAILY 09/03/18 Omeprazole 1 cap PO DAILY 09/03/18 Potassium Chloride 1 dose PO BID 09/03/18 Potassium Chloride [Klor-Con M20] 1 tab PO BID 09/03/18 Pramipexole Di-HCl [Mirapex 0.25 mg Tablet] 1 tab PO QHS 09/03/18 Pravastatin Sodium 1 tab PO ACSUPPER 09/03/18 Roflumilast [Daliresp 500 mcg Tablet] 1 tab PO DAILY 09/03/18 Tiotropium Hanna [Spiriva Handihaler 18 mcg/dose (30 Dose)] 1 dose IH DAILY Tolterodine Tartrate [Detrol LA] 1 cap PO QHS 09/03/18 Allergies/Adverse Reactions: No Known Allergies Allergy (Verified 06/12/18 18:15) Review of Systems All systems: as per PMH Eyes: ABSENT: visual disturbances Ears: ABSENT: hearing changes Nose, Mouth, and Throat: PRESENT: as per HPI Cardiovascular: PRESENT: chest pain, palpitations Respiratory: PRESENT: cough, dyspnea Gastrointestinal: ABSENT: abdominal pain, constipation, diarrhea, hematemesis, hematochezia, nausea, vomiting Genitourinary: ABSENT: dysuria, hematuria Musculoskeletal: ABSENT: joint swelling Integumentary: ABSENT: rash, wounds Neurological: ABSENT: abnormal gait, abnormal speech, confusion, dizziness, focal weakness, syncope Psychiatric: ABSENT: anxiety, depression, homidical ideation, suicidal ideation Endocrine: ABSENT: cold intolerance, heat intolerance, menstrual abnormalities, polydipsia, polyuria Hematologic/Lymphatic: ABSENT: easy bleeding, easy bruising, lymphadenopathy Physical Exam Vital Signs: Temp Pulse Resp BP Pulse Ox 100.2 F 104 H 20 110/52 L 100 09/04/18 08:00 09/04/18 08:41 09/04/18 08:41 09/04/18 08:00 09/04/18 08:41 Intake & Output 09/03/18 09/04/18 09/05/18 06:59 06:59 06:59 Intake Total 138 Output Total 80 20 Balance 58 -20 Weight 58 kg General appearance: PRESENT: thin Head exam: PRESENT: atraumatic, normocephalic Eye exam: PRESENT: conjunctiva pink, EOMI, PERRLA. ABSENT: scleral icterus Ear exam: PRESENT: normal external ear exam Mouth exam: PRESENT: moist, tongue midline Neck exam: PRESENT: full ROM. ABSENT: carotid bruit, JVD, lymphadenopathy, thyromegaly Respiratory exam: PRESENT: decreased breath sounds, rhonchi Cardiovascular exam: PRESENT: RRR. ABSENT: diastolic murmur, rubs, systolic murmur Pulses: PRESENT: normal dorsalis pedis pul, +2 pedal pulses bilateral Vascular exam: PRESENT: normal capillary refill GI/Abdominal exam: PRESENT: normal bowel sounds, soft. ABSENT: distended, guarding, mass, organolmegaly, rebound, tenderness Rectal exam: PRESENT: deferred Extremities exam: PRESENT: full ROM Musculoskeletal exam: PRESENT: other Additional comments: Alan is currently on a ventilator on a propofol drip unable to assess ambulation. Additional comments: Currently on a propofol drip unable to assess level of consciousness presently Psychiatric exam: PRESENT: appropriate affect, normal mood. ABSENT: homicidal ideation, suicidal ideation Results Laboratory Results: 09/04/18 05:50 09/04/18 05:50 09/03/18 09/03/18 09/04/18 22:30 23:50 03:00 WBC RBC Hgb Hct MCV MCH MCHC RDW Plt Count Seg Neutrophils % Lymphocytes % Monocytes % Eosinophils % Basophils % Absolute Neutrophils Absolute Lymphocytes Absolute Monocytes Absolute Eosinophils Absolute Basophils Carbonic Acid 2.99 H 2.70 H 2.71 H HCO3/H2CO3 Ratio 15:1 18:1 16:1 ABG pH 7.28 L 7.35 7.31 L ABG pCO2 99.4 H* 89.8 H* 90.1 H* ABG pO2 74.7 L 58.0 L 67.9 L ABG HCO3 45.4 H 48.9 H 44.3 H ABG O2 Saturation 91.9 L 86.8 L 90.5 L ABG Base Excess 15.2 19.9 15.3 FiO2 32% 30% 40% Sodium Potassium Chloride Carbon Dioxide Anion Gap BUN Creatinine Est GFR ( Amer) Est GFR (Non-Af Amer) Glucose Calcium Magnesium TSH 09/04/18 09/04/18 09/04/18 04:35 05:50 05:50 WBC 13.3 H RBC 3.32 L Hgb 9.3 L Hct 30.0 L MCV 90 MCH 27.9 MCHC 30.9 L RDW 16.4 H Plt Count 388 Seg Neutrophils % 85.7 H Lymphocytes % 7.1 L Monocytes % 6.2 Eosinophils % 0.2 Basophils % 0.8 Absolute Neutrophils 11.4 H Absolute Lymphocytes 1.0 Absolute Monocytes 0.8 Absolute Eosinophils 0.0 Absolute Basophils 0.1 Carbonic Acid 2.67 H HCO3/H2CO3 Ratio 16:1 ABG pH 7.31 L ABG pCO2 88.8 H* ABG pO2 86.1 ABG HCO3 43.8 H ABG O2 Saturation 95.0 ABG Base Excess 15.0 FiO2 40% Sodium 142.2 Potassium 4.6 Chloride 92 L Carbon Dioxide 43 H* Anion Gap 7 BUN 12 Creatinine 0.42 L Est GFR ( Amer) > 60 Est GFR (Non-Af Amer) > 60 Glucose 93 Calcium 9.0 Magnesium 1.8 TSH 09/04/18 09/04/18 09/04/18 05:50 08:35 09:14 WBC RBC Hgb Hct MCV MCH MCHC RDW Plt Count Seg Neutrophils % Lymphocytes % Monocytes % Eosinophils % Basophils % Absolute Neutrophils Absolute Lymphocytes Absolute Monocytes Absolute Eosinophils Absolute Basophils Carbonic Acid Cancelled 1.40 H HCO3/H2CO3 Ratio Cancelled 28:1 ABG pH Cancelled 7.55 H ABG pCO2 Cancelled 46.5 H ABG pO2 Cancelled 56.3 L ABG HCO3 Cancelled 39.4 H ABG O2 Saturation Cancelled 92.2 L ABG Base Excess Cancelled 15.3 FiO2 Cancelled 30% Sodium Potassium Chloride Carbon Dioxide Anion Gap BUN Creatinine Est GFR ( Amer) Est GFR (Non-Af Amer) Glucose Calcium Magnesium TSH 1.33 09/03/18 09/03/18 09/03/18 17:10 23:40 23:40 Creatine Kinase < 20 L CK-MB (CK-2) 1.41 1.40 Troponin I 0.036 0.033 09/04/18 09/04/18 05:50 05:50 Creatine Kinase < 20 L CK-MB (CK-2) 0.98 Troponin I 0.026 Impressions: Chest X-Ray 09/04/18 00:00 IMPRESSION: STABLE LIFE LINES. NO ACUTE RADIOGRAPHIC FINDING IN THE CHEST. Assessment & Plan - Diagnosis (1) Supraventricular tachycardia Is this a current diagnosis for this admission?: Yes Plan: Plan we will continue on IV Cardizem we will do cardiac enzymes isoenzymes every 6x3 once her heart rate is controlled which is probably dependent on her respiratory status we will switch her to oral medication. We will continue on Lovenox in the interim as she is on the ventilator once off we will resume the Eliquis 2.5 twice daily (2) Acute and chronic respiratory failure ([id number]) Qualifiers: Respiratory failure complication: hypoxia and hypercapnia Qualified Code(s) : J96.21 - Acute and chronic respiratory failure with hypoxia; J96.22 - Acute and chronic respiratory failure with hypercapnia; J96.22 - Acute and chronic respiratory failure with hypercapnia; J96.22 - Acute and chronic respiratory failure with hypercapnia Is this a current diagnosis for this admission?: Yes Plan: Plan continue supplemental oxygen at a prefix rate we will adjust her pressure support according to her oxygen level we will put her on broad-spectrum IV antibiotics because of the leukocytosis blood cultures have been done we will continue her beta-2 agonist inhaled steroids. (3) Anemia Qualifiers: Anemia type: iron deficiency Iron deficiency anemia type: unspecified iron deficiency Qualified Code(s): D50.9 - Iron deficiency anemia, unspecified Is this a current diagnosis for this admission?: Yes Plan: Tinea to monitor if it gets below 9 we will give IV iron - Time Time Spent: 30 to 50 Minutes Anticipated discharge: SNF - Inpatient Certification I certify that my determination is in accordance with my understanding of Medicare's requirements for reasonable and necessary INPATIENT services [42 CFR 412.3e].: Yes Medical Necessity: Need For IV Fluids, Need for IV Antibiotics Post Hospital Care: D/C Director Of Regulatory Affairs Documentation
[2018-09-04] MEDS ORDERED: SUCCINYLCHOLINE CHLORIDE INJ 200 MG/10 ML VIAL ONE (09:54)
[2018-09-04] MEDS ORDERED: METOPROLOL TARTRATE 25 MG TABLET NG SCH (10:00)
[2018-09-04] MEDS ORDERED: NITROGLYCERIN 5 MG (0.2 MG/HR) PATCH.TD24 TD SCH (10:00)
[2018-09-04] MEDS ORDERED: ENOXAPARIN SODIUM INJ 40 MG/0.4 ML DISP.SYRIN SUBCUT SCH (10:00)
[2018-09-04] MEDS ORDERED: APIXABAN 2.5 MG TABLET NG SCH (10:00)
[2018-09-04] MEDS ORDERED: ROFLUMILAST 500 MCG TABLET PO SCH (10:00)
[2018-09-04] MEDS ORDERED: NORMAL SALINE INJ/PF 0.9% 10 ML SDV IV PRN (10:14)
--- NOTE | 2018-09-04 10:28 | RADIOLOGY REPORT (SQ) ---
EXAM DESCRIPTION: CHEST SINGLE VIEW COMPLETED DATE/TIME: 09/04/2018 10:16 am REASON FOR STUDY: CENTRAL LINE PLACEMENT COMPARISON: 09/04/2018 at 0853 hours. EXAM PARAMETERS: NUMBER OF VIEWS: One view. TECHNIQUE: Single frontal radiographic view of the chest acquired. RADIATION DOSE: NA LIMITATIONS: None. FINDINGS: LUNGS AND PLEURA: No opacities, masses or pneumothorax. No pleural effusion. MEDIASTINUM AND HILAR STRUCTURES: No masses. Contour normal. HEART AND VASCULAR STRUCTURES: Heart normal in size. Normal vasculature. BONES: No acute findings. HARDWARE: Central line on the right side. Tip of the catheter at the level of the cavoatrial junctio n. Stable endotracheal tube and nasogastric tube. OTHER: No other significant finding. IMPRESSION: CENTRAL LINE DESCRIBED. NO PNEUMOTHORAX. OTHERWISE NO CHANGE. TECHNICAL DOCUMENTATION: JOB ID: [id number] [employer]- All Rights Reserved Reading location - IP/workstation name: [email or web address]
--- NOTE | 2018-09-04 10:40 | EKG REPORT ---
SEVERITY:- BORDERLINE ECG - ECTOPIC ATRIAL RHYTHM ATRIAL PREMATURE COMPLEX LOW VOLTAGE THROUGHOUT : Confirmed by: Susan Ho MD 04-Sep-2018 10:39:22
[2018-09-04] MEDS ORDERED: DIGOXIN INJ 0.5 MG/2 ML AMPULE IV ONE (11:30)
[2018-09-04] MEDS ORDERED: NORMAL SALINE 250 ML IV ONE (11:30)
[2018-09-04] MEDS: PANTOPRAZOLE SODIUM 40 MG VIAL IV SCH (11:43)
[2018-09-04] MEDS: LEVOFLOXACIN 750 MG/D5W RTU 750 MG/150 ML RTUPB IV SCH (11:43)
[2018-09-04] MEDS: PRAMIPEXOLE DI-HCL 0.25 MG TABLET NG SCH (11:45)
[2018-09-04] MEDS: DOCUSATE SODIUM 100 MG/10 ML UDC NG SCH ×2 (11:45→18:18)
[2018-09-04] MEDS: TOLTERODINE TARTRATE 1 MG TABLET NG SCH ×2 (11:45→21:55)
[2018-09-04] MEDS: ROFLUMILAST 500 MCG TABLET NG SCH (11:45)
[2018-09-04] MEDS: TIOTROPIUM BROMIDE DPI 5 CAP/KIT (18 MCG/CAP) IH SCH (11:50)
[2018-09-04] MEDS ORDERED: PHENYLEPHRINE HCL INJ/PF 10 MG/1 ML SDV ONE ×2 (12:43→12:44)
[2018-09-04 12:53] LABS: CREATINE KINASE MB 0.37 ng/mL (<4.55); TROPONIN I 0.021 ng/mL
[2018-09-04] MEDS: DEXTROSE 5%-WATER 250 ML with PHENYLEPHRINE HCL 40 MG IV PRN ×4 (12:55→23:28)
--- NOTE | 2018-09-04 13:29 | Operative Report ---
Bedside Procedure - History of Present Illness Indication for Procedure: Poor venous access vasoactive drugs Date: 09/04/18 Surgeon: GUSTAVO ECHOLS - Central Line Right Internal jugular Consent obtained: Yes Central line pre-insertion: Sterile PPE donned Central line lumen type: Triple Anesthetic type: 1% Lidocaine Ultrasound guided: Yes Line secured with sutures: Yes Central line post-insertion: Blood return from lumens, Biopatch applied, Sutured , Sterile dressing applied, Position confirmed w/ CXR Complications: No
[2018-09-04] MEDS: DILTIAZEM HCL/D5W 125 MG/125 ML RTUINJ IV PRN (14:38)
[2018-09-04] MEDS: NORMAL SALINE 1000 ML 1,000 ML IV PRN ×2 (16:51→23:28)
[2018-09-04 18:51] LABS: TROPONIN I 0.033 ng/mL
[2018-09-04 18:52] LABS: CREATINE KINASE MB < 0.22 ng/mL (<4.55)
--- NOTE | 2018-09-04 21:30 | Progress Note ---
Provider Note Provider Note: CARDIOLOGY CONSULTATION by Dr. Susan Ho. Patient seen at 10:30 AM on 09/04/2018. Note 60 minutes spent on this patient more than 50% of time spent in direct patient care. REASON FOR CONSULTATION: Patient with SVT. HISTORY OF PRESENT ILLNESS: Patient is intubated and sedated, hence unable to obtain history. Relatives are not around. Hence history obtained from the chart. Patient is 72-year-old female with a history of chronic hypoxic/hypercapnic respiratory failure secondary to COPD, recently diagnosed with atrial fibrillation, on anticoagulation. Who came into the emergency room with complaints of weakness and shortness of breath and palpitations. She was found to be in an SVT, most likely atrial flutter. She was placed on a Cardizem drip her EKG this morning showed ectopic atrial rhythm, but subsequent EKG showed that this was atrial flutter with the current with a controlled ventricular response around 90 bpm also. Note initially the patient due to respiratory failure was treated with BiPAP, but this failed and the patient had to be intubated and sedated. Blood gases shows that the patient's has hypoxic/ hypercapnic acute on chronic respiratory failure. Note monitor strips did not show any ventricular arrhythmias. The patient is on Cardizem infusion at 5 mg/h , and also on Sd-Synephrine drip at 50 mcg/min. Note that the patient's urine cultures is positive for gram-negative rods. PAST MEDICAL HISTORY: She has a past history of hypertension, she has history of congestive heart failure with cardiomyopathy in 2013 Griselda her ejection fraction of 25%. Subsequent echocardiogram shows that the EF is around 35%. She has a history of coronary artery disease. She has a history of congestive heart failure. She has a history of COPD. She also has a history of arthritis. There is no history of diabetes mellitus or thyroid disease. She has history of depression. There is no history of TIA CVA. PAST SURGICAL HISTORY: Cholecystectomy, orthopedic surgery, back surgery. She is also had colonoscopy. SOCIAL HISTORY: The patient is a former smoker smoker quit smoking some years ago. FAMILY HISTORY: History of CVA and malignancy in the family. DISPOSITION: The patient is a full code her daughter is a surrogate healthcare decision maker. ALLERGIES: No known allergies. REVIEW OF SYSTEMS: As per history of present illness. Unable to obtain due to the patient being intubated and sedated, and no relatives around. PHYSICAL EXAMINATION: The patient appears to be well-built, she is well- groomed. She is not fighting the ventilator. Selected Entries 09/04/18 09/04/18 09/04/18 10:52 12:26 12:52 Temperature 100.4 F 100.0 F Heart Rate ( 98 115 Monitors) Respiratory 20 20 Rate Blood Pressure 87/45 L 91/43 L Blood Pressure 59 59 Mean O2 Sat by Pulse 100 100 Oximetry Oxygen Delivery Mechanical Method ( Ventilator includes room air) Percent of 30 Oxygen Premature 43 Ventricular Counted Beats HEAD: Is atraumatic normocephalic. EYES: Pupils are equal round reactive to light. ENT: Is negative. NECK: Is supple. There is no JVD. Carotids equal there is no bruit. LUNGS: Trachea central. Lungs show scattered rhonchi and a few wheezing. There is no rales of CHF at present. HEART: S1-S2 is heard. S1 is of variable intensity. There is no S3 gallop there is no S4 gallop. There is systolic murmur left sternal border and the apex. There is no rub ABDOMEN: Bowel sounds well heard. There is no hepatosplenic megaly. EXTREMITIES: Femorals are diminished there is no femoral bruits leg pulses are diminished. There is no pedal edema. There is no DVT or cellulitis. There is no sinus or clubbing. ACUP[employer]CTURE PHYSICIAN PSYCHIATRIC not examined since patient intubated and sedated. 09/03/18 09/03/18 09/03/18 14:25 14:25 17:10 WBC RBC Hgb Hct MCV MCH MCHC RDW Plt Count Carbonic Acid HCO3/H2CO3 Ratio ABG pH ABG pCO2 ABG pO2 ABG HCO3 ABG Total CO2 ABG O2 Saturation FiO2 Sodium Potassium Chloride Carbon Dioxide BUN Creatinine Est GFR (Non-Af Amer) Glucose Calcium Magnesium Creatine Kinase 23 L CK-MB (CK-2) 1.41 Troponin I 0.030 0.036 TSH Random Cortisol 09/03/18 09/03/18 09/04/18 23:40 23:40 05:50 WBC RBC Hgb Hct MCV MCH MCHC RDW Plt Count Carbonic Acid HCO3/H2CO3 Ratio ABG pH ABG pCO2 ABG pO2 ABG HCO3 ABG Total CO2 ABG O2 Saturation FiO2 Sodium 142.2 Potassium 4.6 Chloride 92 L Carbon Dioxide 43 H* BUN 12 Creatinine 0.42 L Est GFR (Non-Af Amer) > 60 Glucose 93 Calcium 9.0 Magnesium 1.8 Creatine Kinase < 20 L < 20 L CK-MB (CK-2) 1.40 Troponin I 0.033 TSH Random Cortisol 09/04/18 09/04/18 09/04/18 05:50 05:50 09:14 WBC 13.3 H RBC 3.32 L Hgb 9.3 L Hct 30.0 L MCV 90 MCH 27.9 MCHC 30.9 L RDW 16.4 H Plt Count 388 Carbonic Acid 1.40 H HCO3/H2CO3 Ratio 28:1 ABG pH 7.55 H ABG pCO2 46.5 H ABG pO2 56.3 L ABG HCO3 39.4 H ABG Total CO2 40.8 H ABG O2 Saturation 92.2 L FiO2 30% Sodium Potassium Chloride Carbon Dioxide BUN Creatinine Est GFR (Non-Af Amer) Glucose Calcium Magnesium Creatine Kinase CK-MB (CK-2) Troponin I TSH 1.33 Random Cortisol 09/04/18 09/04/18 09/04/18 12:10 12:10 18:03 WBC RBC Hgb Hct MCV MCH MCHC RDW Plt Count Carbonic Acid HCO3/H2CO3 Ratio ABG pH ABG pCO2 ABG pO2 ABG HCO3 ABG Total CO2 ABG O2 Saturation FiO2 Sodium Potassium Chloride Carbon Dioxide BUN Creatinine Est GFR (Non-Af Amer) Glucose Calcium Magnesium Creatine Kinase < 20 L CK-MB (CK-2) 0.37 Troponin I 0.021 TSH Random Cortisol 18.90 09/04/18 18:03 WBC RBC Hgb Hct MCV MCH MCHC RDW Plt Count Carbonic Acid HCO3/H2CO3 Ratio ABG pH ABG pCO2 ABG pO2 ABG HCO3 ABG Total CO2 ABG O2 Saturation FiO2 Sodium Potassium Chloride Carbon Dioxide BUN Creatinine Est GFR (Non-Af Amer) Glucose Calcium Magnesium Creatine Kinase CK-MB (CK-2) < 0.22 Troponin I 0.033 TSH Random Cortisol 09/03/18 14:30 Normal Saline 1000 ml [NaCl 0.9% 1000 ml IV Soln] 1,000 ml IV BOLUS 09/03/18 14:48 Diltiazem HCl [Cardizem Inj 25 mg/5 ml Vial] 10 mg IV NOW ONE 09/03/18 14:49 Calcium Gluconate [Calcium Gluconate Inj 1000 mg/10 ml] 1,000 mg IV NOW ONE 09/03/18 16:23 Levalbuterol HCl [Xopenex Neb 0.63 mg/3 ml Ampul] 0.63 mg NEB RTQ6HP PRN 09/03/18 18:38 Flu Vacc [id number](6Mos Up)/Pf [Fluarix Adlt Quad Vac 0.5 ml Syr] 0.5 ml IM .DISCHARGE PRN 09/03/18 19:00 Diltiazem HCl [Cardizem Inj 25 mg/5 ml Vial] 10 mg IV NOW ONE 09/03/18 20:00 Budesonide [Pulmicort Neb 0.5 mg/2 ml Ampul] 0.5 mg NEB RTQ12 09/04/18 05:17 Fentanyl Citrate/Pf [Sublimaze Inj/Pf 100 Mcg/2 ml Ampule] 50 mcg IV Q4HP PRN Propofol [Diprivan RTU 1000 mg/100 ml Inf.bottle] 1,000 mg in 100 ml IV CONTINUOUS 09/04/18 05:23 Propofol [Diprivan RTU 1000 mg/100 ml Inf.bottle] 1,000 mg in 100 ml IV .STK- MED 09/04/18 05:30 Pharmacy Communication [Medication Communication Order] 1 each .NOTICE NR 09/04/18 05:39 Ondansetron [Zofran Odt 4 mg Tablet] 4 mg NG Q6HP PRN 09/04/18 05:51 Propofol [Diprivan Inj 200 mg/20 ml Vial] 200 mg IV .STK-MED ONE 09/04/18 08:49 Normal Saline 1000 ml [NaCl 0.9% 1000 ml IV Soln] 1,000 ml IV CONTINUOUS 09/04/18 08:51 Diltiazem HCl/D5w [Cardizem RTU Inj 125 mg-D5w 125 ml Premix] 125 mg in 125 ml IV CONTINUOUS 09/04/18 10:00 Enoxaparin Sodium [Lovenox Inj 40 mg/0.4 ml Disp.syrin] 40 mg SUBCUT DAILY Levofloxacin 750 mg/D5w RTU [Levaquin RTU 750 mg/D5w 150 ml Premix] 750 mg in 150 ml IV Q2DAYS Pantoprazole Sodium [Protonix IV Inj 40 mg Vial] 40 mg IV DAILY Pramipexole Di-HCl [Mirapex 0.25 mg Tablet] 0.25 mg NG DAILY Roflumilast [Daliresp 500 Mcg Tablet] 500 mcg NG DAILY Tiotropium Gardner [Spiriva Handihaler 5 Cap/Kit (18 Mcg/Cap)] 1 cap IH DAILY Tolterodine Tartrate [Detrol 1 mg Tablet] 1 mg NG Q12 09/04/18 10:14 Heparin Sodium,Porcine [Heparin Flush 10 Unit/ml 5 ml Disp.syrg] 30 unit IV .AFTER EACH USE PRN Normal Saline [NaCl 0.9% Inj/Pf 10 ml Sdv] 10 ml IV .AFTER EACH USE PRN 09/04/18 10:15 Docusate Sodium [Colace Udc 100 mg/10 ml Oral Soln] 100 mg NG BID 09/04/18 11:30 Digoxin Inj [Lanoxin Inj 0.5 mg/2 ml Ampule] 0.125 mg IV NOW ONE Normal Saline [NaCl 0.9% 250 ml IV Soln] 250 ml IV BOLUS 09/04/18 12:43 Phenylephrine HCl [Sd-Synephrine Inj/Pf 10 mg/1 ml Sdv] 10 mg .ROUTE .STK- MED ONE 09/04/18 12:44 Phenylephrine HCl [Sd-Synephrine Inj/Pf 10 mg/1 ml Sdv] 10 mg .ROUTE .STK- MED ONE 09/04/18 13:11 Phenylephrine HCl [Sd-Synephrine Inj/Pf 10 mg/1 ml Sdv] 40 mg Dextrose 5%- Water [D5w 250 ml IV Soln] 250 ml IV CONTINUOUS 09/04/18 14:00 Heparin Sodium,Porcine [Heparin Flush 10 Unit/ml 5 ml Disp.syrg] 30 unit IV Q8 09/04/18 22:00 Metoprolol Tartrate [Lopressor 25 mg Tablet] 25 mg NG Q12 Montelukast Sodium [Singulair 10 mg Tablet] 10 mg NG QHS Chest X-rays x3: No acute radiographic findings in the chest. EKG: The first EKG shows SVT, most likely atrial flutter with rapid ventricular response. Diffuse nonspecific ST-T changes. Subsequent EKG shows ectopic atrial rhythm. The next EKG shows atrial flutter with a controlled ventricular response. IMPRESSION/RECOMMENDATION: Next 1. Acute on chronic hypoxic/hypercapnic respiratory failure.: Continue ventilatory support. Continue anti-COPD medication, and antibiotics. 2. Septic shock: Secondary to urinary tract infection exacerbated by the patient's atrial flutter with rapid ventricular response, and the patient's hypercapnic hypoxemic respiratory failure. 3. SVT: This is due to atrial flutter with rapid ventricular response controlled: At present the patient's heart rate is better controlled. Note that the patient is able to be on Cardizem drip at 5 mg/h, with the patient also being on Sd-Synephrine at 50 mcg/min to get her blood pressure up. Note the patient has a history of proximal atrial fibrillation in the past. Would also recommend restarting the patient's Eliquis at 2.5 mg via NG tube every 12 hours. The patient at home was on chronic anticoagulation therapy with Eliquis. 4. Urinary tract infection with gram-negative rods: Sensitivities pending. At present continue antibiotics. 5. History of coronary artery disease: No definite evidence of VT this admission. 6. COPD: Continue anti-COPD treatment as being done now. Next 7. History of hypertension: At present blood pressure needs the support of Sd- Synephrine. Next 8. Cardiomyopathy: At present seems to be compensated. No evidence of congestive heart failure by x-ray or clinically. 9. History of depression: This needs to be addressed later when the patient is extubated. Medications reviewed note patient was given an extra dose of digoxin 0.125 mg IV push. Discussed with the attending physician, and other caregiving providers on the case. Management plans discussed. Medical decision making is of high complexity. 60 minutes spent on this patient with more than 50% of time spent in direct patient care. We will follow with you
[2018-09-04] MEDS: METOPROLOL TARTRATE 25 MG TABLET NG SCH (21:55)
[2018-09-04] MEDS: MONTELUKAST SODIUM 10 MG TABLET NG SCH (21:55)
[2018-09-04] MEDS ORDERED: ATORVASTATIN CALCIUM 20 MG TABLET NG SCH (22:00)
[2018-09-05 00:40] LABS: CREATINE KINASE MB 0.23 ng/mL (<4.55); TROPONIN I 0.029 ng/mL
[2018-09-05] MEDS: PROPOFOL 1,000 MG/100 ML INFUS..BTL IV PRN ×3 (05:55→22:14)
--- NOTE | 2018-09-05 06:28 | RADIOLOGY REPORT (SQ) ---
EXAM DESCRIPTION: XR CHEST 1 VIEW COMPLETED DATE/TME: 09/05/2018 06:00 CLINICAL HISTORY: resp failure COMPARISON: 09/04/2018 FINDINGS: Single frontal view of the chest. Endotracheal tube with tip 3 cm above the supa. NG tube with tip below the diaphragm. Right IJ central venous catheter with tip in the high right atrium. Leads overlie the chest. No consolidation, pneumothorax, or pleural effusion. Cardiomediastinal silhouette is stable. Osseous structures are stable. Upper abdominal soft tissues are unremarkable. IMPRESSION: 1. Stable appearance of the chest.
[2018-09-05 06:40] LABS: ABSOLUTE LYMPHOCYTES (AUTO) 1.6 10^3/uL (0.5-4.7); ABSOLUTE MONOCYTES (AUTO) 1.4 10^3/uL (0.1-1.4); ABSOLUTE NEUT (AUTO) 14.6 10^3/uL (1.7-8.2); ARTERIAL BLOOD BASE EXCESS 10.6 mmol/L; ARTERIAL BLOOD H2CO3 1.13 mmol/L (1.05-1.35); ARTERIAL BLOOD HCO3 33.4 mmol/L (20-24); ARTERIAL BLOOD O2 SATURATION 97.8 % (94-98); ARTERIAL BLOOD PCO2 37.5 mmHg (35-45); ARTERIAL BLOOD PH 7.57 (7.35-7.45); ARTERIAL BLOOD PO2 89.8 mmHg (80-100); ARTERIAL BLOOD TOTAL CO2 34.5 mmol/L (21-25); BASOPHILS % (AUTO) 0.2 % (0-2); EOSINOPHILS % (AUTO) 0.1 % (0-6); HEMATOCRIT 27.9 % (36.0-47.0); HEMOGLOBIN 8.8 g/dL (12.0-15.5); MEAN CORPUSCULAR HEMOGLOBIN 27.8 pg (27.0-33.4); MEAN CORPUSCULAR HGB CONC 31.6 g/dL (32.0-36.0); MEAN CORPUSCULAR VOLUME 88 fl (80-97); MONOCYTES % (AUTO) 7.8 % (3-13); PLATELET COUNT 401 10^3/uL (150-450); RED BLOOD COUNT 3.18 10^6/uL (3.72-5.28); RED CELL DISTRIBUTION WIDTH 16.1 % (11.5-14.0); SEGMENTED NEUTROPHILS % (AUTO) 82.9 % (42-78); TOTAL CELLS COUNTED % (AUTO) 100 %; WHITE BLOOD COUNT 17.6 10^3/uL (4.0-10.5)
[2018-09-05 06:41] LABS: ARTERIAL BLOOD FIO2 25%
[2018-09-05 07:03] LABS: ANION GAP 8 (5-19); BLOOD UREA NITROGEN 9 mg/dL (7-20); CARBON DIOXIDE 35 mmol/L (22-30); CHLORIDE 98 mmol/L (98-107); GLUCOSE 88 mg/dL (75-110); POTASSIUM 3.1 mmol/L (3.6-5.0); TRIGLYCERIDES 98 mg/dL (<150)
[2018-09-05] MEDS: BUDESONIDE NEB 0.5 MG/2 ML AMPUL NEB SCH ×2 (08:20→20:32)
--- NOTE | 2018-09-05 08:25 | EKG REPORT ---
SEVERITY:- ABNORMAL ECG - SUPRAVENTRICULAR TACHYCARDIA (MOOST LIKELY ATRIAL FLUTTER) LEFT AXIS DEVIATION NONSPECIFIC T ABNORMALITIES, INFERIOR LEADS : Confirmed by: Susan Ho MD 05-Sep-2018 08:24:33
[2018-09-05] MEDS: NORMAL SALINE 1000 ML 1,000 ML IV PRN ×3 (08:43→23:38)
[2018-09-05] MEDS: MAGNESIUM SULFATE/D5W 1 GM/100 ML RTUPB IV SCH ×2 (08:48→10:14)
[2018-09-05] MEDS: TOLTERODINE TARTRATE 1 MG TABLET NG SCH ×2 (10:13→21:08)
[2018-09-05] MEDS: PANTOPRAZOLE SODIUM 40 MG VIAL IV SCH (10:13)
[2018-09-05] MEDS: DOCUSATE SODIUM 100 MG/10 ML UDC NG SCH ×2 (10:14→17:46)
[2018-09-05] MEDS: ROFLUMILAST 500 MCG TABLET NG SCH (10:14)
[2018-09-05] MEDS: DILTIAZEM HCL 60 MG TABLET NG SCH ×3 (10:14→21:07)
[2018-09-05] MEDS: PRAMIPEXOLE DI-HCL 0.25 MG TABLET NG SCH (10:17)
[2018-09-05] MEDS: POTASSI CL 20 MEQ/50 ML RIDER 20 MEQ/50 ML RTUPB IV SCH ×3 (10:17→15:03)
[2018-09-05] MEDS: TIOTROPIUM BROMIDE DPI 5 CAP/KIT (18 MCG/CAP) IH SCH (10:17)
[2018-09-05] MEDS: FENTANYL CITRATE INJ/PF 100 MCG/2 ML AMPUL IV PRN ×2 (10:20→14:48)
[2018-09-05] MEDS: METOPROLOL TARTRATE 50 MG TABLET NG SCH ×2 (10:21→21:08)
[2018-09-05] MEDS: DIGOXIN INJ 0.5 MG/2 ML AMPULE IV SCH (10:22)
[2018-09-05] MEDS: APIXABAN 2.5 MG TABLET NG SCH ×2 (10:49→17:46)
--- NOTE | 2018-09-05 11:09 | PDOC CONSULTATION ---
Consultation Consult Date: 09/04/18 Attending physician:: KAILEE WOLF Consult reason:: acute resp failure History of Present Illness Admission Date/PCP: 09/03/18 15:59 KAILEE WOLF MD History of Present Illness: SMITH IRAHETA is a 72 year old female, known to [facility] with a diagnosis of chronic hypoxic hypercapnic respiratory failure presented to the emergency room wheezing shortness of breath and altered mental status she did not respond to the BiPAP and she was subsequently intubated and sedated she has history of atrial fibrillation the time of presentation she was diagnosed with having SVT Past Medical History Cardiac Medical History: Reports: Congestive Heart Failure - Ejection fraction of less than 25%, May 2014., Coronary Artery Disease, Hypertension Denies: DVT, Myocardial Infarction, Hyperlipidema, Pulmonary Embolism Pulmonary Medical History: Reports: Chronic Obstructive Pulmonary Disease (COPD ) - 3L nasal O2 at home, Pneumonia Denies: Asthma Neurological Medical History: Denies: Seizures Endocrine Medical History: Denies: Diabetes Mellitus Type 1, Diabetes Mellitus Type 2, Hyperthyroidism, Hypothyroidism GI Medical History: Reports: Gastroesophageal Reflux Disease - Mild, Hiatal Hernia Denies: Cirrhosis, Hepatitis Musculoskeltal Medical History: Reports: Arthritis Psychiatric Medical History: Reports: Depression Hematology: Reports: Anemia Denies: Sickle Cell Disease Past Surgical History Past Surgical History: Reports: Cholecystectomy, Orthopedic Surgery - "back surgery", Other - Last colonoscopy many years ago Denies: Amputation, Hysterectomy, Mastectomy, Pacemaker Social History Information Source: [facility] Records Smoking Status: Former Smoker Frequency of Alcohol Use: None Hx Recreational Drug Use: No Drugs: None Hx Prescription Drug Abuse: No - Advance Directive Resuscitation Status: Full Code Family History Family History: CVA, Malignancy Parental Family History Reviewed: No Children Family History Reviewed: No Sibling(s) Family History Reviewed.: No Medication/Allergy Home Medications: Albuterol Sulfate [Proair HFA] 2 puff IH QIDP PRN 09/04/18 Apixaban [Eliquis 2.5 mg Tablet] 2.5 mg PO Q12 09/04/18 Ibuprofen [Motrin 800 mg Tablet] 800 mg PO TID 09/04/18 Metoprolol Succinate [Toprol Xl 25 mg Tab.sr] 25 mg PO Q12 09/04/18 Montelukast Sodium [Singulair 10 mg Tablet] 10 mg PO QPM 09/04/18 Multivitamin [Daily Multiple Vitamin] 1 each PO DAILY 09/04/18 Olanzapine [Zyprexa 2.5 Mg Tablet] 2.5 mg PO DAILY 09/04/18 Omeprazole 40 mg PO DAILY 09/04/18 Oxycodone HCl [Oxy-Ir 5 mg Tablet] 10 mg PO Q6HP PRN 09/04/18 Potassium Chloride [Klor-Con 10 Meq Capsule ER] 20 meq PO BID 09/04/18 Pramipexole Di-HCl [Mirapex 0.25 Mg Tablet] 0.25 mg PO QHS 09/04/18 Pravastatin Sodium [Pravachol] 20 mg PO QPM 09/04/18 Tolterodine Tartrate [Detrol LA] 2 mg PO DAILY 09/04/18 Allergies/Adverse Reactions: No Known Allergies Allergy (Verified 06/12/18 18:15) Review of Systems ROS unobtainable: Due to endotracheal tube, Due to mental status Physical Exam Vital Signs: Temp Pulse Resp BP Pulse Ox 100.2 F 104 H 20 110/52 L 100 09/04/18 08:00 09/04/18 08:41 09/04/18 08:41 09/04/18 08:00 09/04/18 08:41 Intake & Output 09/03/18 09/04/18 09/05/18 06:59 06:59 06:59 Intake Total 138 Output Total 80 20 Balance 58 -20 Weight 58 kg General appearance: PRESENT: no acute distress, well-developed, well-nourished. ABSENT: cooperative, disheveled Head exam: PRESENT: atraumatic, normocephalic Eye exam: PRESENT: conjunctiva pale. ABSENT: nystagmus, periorbital swelling, scleral icterus Mouth exam: PRESENT: dry mucosa, neck supple, tongue midline, other - ET tube in place Neck exam: ABSENT: carotid bruit, JVD, lymphadenopathy, thyromegaly, tracheal deviation, tracheostomy Respiratory exam: PRESENT: decreased breath sounds, prolonged expiratory phas, rales, rhonchi, unlabored. ABSENT: retraction, stridor, tachypnea, wheezes Cardiovascular exam: PRESENT: irregular rhythm, tachycardia Pulses: PRESENT: normal radial pulses GI/Abdominal exam: PRESENT: soft Gentrourinary exam: PRESENT: indwelling catheter Extremities exam: ABSENT: calf tenderness, clubbing, joint swelling, pedal edema Musculoskeletal exam: ABSENT: ambulatory, deformity, dislocation Neurological exam: ABSENT: awake Skin exam: PRESENT: dry, warm Results Laboratory Results: 09/04/18 05:50 09/04/18 05:50 09/03/18 09/03/18 09/04/18 22:30 23:50 03:00 WBC RBC Hgb Hct MCV MCH MCHC RDW Plt Count Seg Neutrophils % Lymphocytes % Monocytes % Eosinophils % Basophils % Absolute Neutrophils Absolute Lymphocytes Absolute Monocytes Absolute Eosinophils Absolute Basophils Carbonic Acid 2.99 H 2.70 H 2.71 H HCO3/H2CO3 Ratio 15:1 18:1 16:1 ABG pH 7.28 L 7.35 7.31 L ABG pCO2 99.4 H* 89.8 H* 90.1 H* ABG pO2 74.7 L 58.0 L 67.9 L ABG HCO3 45.4 H 48.9 H 44.3 H ABG O2 Saturation 91.9 L 86.8 L 90.5 L ABG Base Excess 15.2 19.9 15.3 FiO2 32% 30% 40% Sodium Potassium Chloride Carbon Dioxide Anion Gap BUN Creatinine Est GFR ( Amer) Est GFR (Non-Af Amer) Glucose Calcium Magnesium TSH 09/04/18 09/04/18 09/04/18 04:35 05:50 05:50 WBC 13.3 H RBC 3.32 L Hgb 9.3 L Hct 30.0 L MCV 90 MCH 27.9 MCHC 30.9 L RDW 16.4 H Plt Count 388 Seg Neutrophils % 85.7 H Lymphocytes % 7.1 L Monocytes % 6.2 Eosinophils % 0.2 Basophils % 0.8 Absolute Neutrophils 11.4 H Absolute Lymphocytes 1.0 Absolute Monocytes 0.8 Absolute Eosinophils 0.0 Absolute Basophils 0.1 Carbonic Acid 2.67 H HCO3/H2CO3 Ratio 16:1 ABG pH 7.31 L ABG pCO2 88.8 H* ABG pO2 86.1 ABG HCO3 43.8 H ABG O2 Saturation 95.0 ABG Base Excess 15.0 FiO2 40% Sodium 142.2 Potassium 4.6 Chloride 92 L Carbon Dioxide 43 H* Anion Gap 7 BUN 12 Creatinine 0.42 L Est GFR ( Amer) > 60 Est GFR (Non-Af Amer) > 60 Glucose 93 Calcium 9.0 Magnesium 1.8 TSH 09/04/18 09/04/18 05:50 08:35 WBC RBC Hgb Hct MCV MCH MCHC RDW Plt Count Seg Neutrophils % Lymphocytes % Monocytes % Eosinophils % Basophils % Absolute Neutrophils Absolute Lymphocytes Absolute Monocytes Absolute Eosinophils Absolute Basophils Carbonic Acid Cancelled HCO3/H2CO3 Ratio Cancelled ABG pH Cancelled ABG pCO2 Cancelled ABG pO2 Cancelled ABG HCO3 Cancelled ABG O2 Saturation Cancelled ABG Base Excess Cancelled FiO2 Cancelled Sodium Potassium Chloride Carbon Dioxide Anion Gap BUN Creatinine Est GFR ( Amer) Est GFR (Non-Af Amer) Glucose Calcium Magnesium TSH 1.33 09/03/18 09/03/18 09/03/18 17:10 23:40 23:40 Creatine Kinase < 20 L CK-MB (CK-2) 1.41 1.40 Troponin I 0.036 0.033 09/04/18 09/04/18 05:50 05:50 Creatine Kinase < 20 L CK-MB (CK-2) 0.98 Troponin I 0.026 Assessment & Plan - Diagnosis (1) Acute and chronic respiratory failure ([id number]) Qualifiers: Respiratory failure complication: hypoxia and hypercapnia Qualified Code(s) : J96.21 - Acute and chronic respiratory failure with hypoxia; J96.22 - Acute and chronic respiratory failure with hypercapnia; J96.22 - Acute and chronic respiratory failure with hypercapnia; J96.22 - Acute and chronic respiratory failure with hypercapnia Is this a current diagnosis for this admission?: Yes Plan: Good oxygenation and ventilation has been obtained thus far with mechanical ventilation will attempt to wean her to baseline prior to extubation (2) COPD exacerbation Is this a current diagnosis for this admission?: Yes Plan: Continue current bronchodilator therapy if no obvious infiltrates in the next 24 hours consider starting Pulmicort (3) GERD (gastroesophageal reflux disease) Qualifiers: Esophagitis presence: without esophagitis Qualified Code(s): K21.9 - Gastro -esophageal reflux disease without esophagitis Is this a current diagnosis for this admission?: Yes Plan: H2 drew - Time Total Critical Time (Minutes): 50
--- NOTE | 2018-09-05 11:11 | PDOC PROGRESS REPORT ---
Subjective Progress Note for:: 09/05/18 Subjective:: Intubated and sedated Reason For Visit: SVT Physical Exam Vital Signs: Temp Pulse Resp BP Pulse Ox 99.0 F 84 20 128/55 H 100 09/05/18 08:00 09/05/18 08:21 09/05/18 08:21 09/05/18 08:00 09/05/18 08:21 Intake & Output 09/04/18 09/05/18 09/06/18 06:59 06:59 06:59 Intake Total 138 1492 1049 Output Total 80 1870 1004 Balance 58 -378 45 Weight 58 kg 61.4 kg General appearance: PRESENT: no acute distress, disheveled, well-developed, well -nourished. ABSENT: cooperative Head exam: PRESENT: atraumatic, normocephalic Eye exam: PRESENT: conjunctiva pale. ABSENT: nystagmus, periorbital swelling, scleral icterus Mouth exam: PRESENT: dry mucosa, neck supple, tongue midline, other - ET tube in place Neck exam: ABSENT: carotid bruit, JVD, lymphadenopathy, thyromegaly, tracheal deviation, tracheostomy Respiratory exam: PRESENT: decreased breath sounds, prolonged expiratory phas, rales, rhonchi, unlabored. ABSENT: retraction, stridor, tachypnea Cardiovascular exam: PRESENT: irregular rhythm Pulses: PRESENT: normal radial pulses GI/Abdominal exam: PRESENT: soft Gentrourinary exam: PRESENT: indwelling catheter Extremities exam: ABSENT: calf tenderness, clubbing, joint swelling, pedal edema Musculoskeletal exam: ABSENT: ambulatory, deformity, dislocation Neurological exam: ABSENT: awake Skin exam: PRESENT: dry, warm Results Laboratory Results: 09/05/18 06:20 09/05/18 06:20 09/05/18 09/05/18 09/05/18 06:20 06:20 06:20 WBC 17.6 H RBC 3.18 L Hgb 8.8 L Hct 27.9 L MCV 88 MCH 27.8 MCHC 31.6 L RDW 16.1 H Plt Count 401 Seg Neutrophils % 82.9 H Lymphocytes % 9.0 L Monocytes % 7.8 Eosinophils % 0.1 Basophils % 0.2 Absolute Neutrophils 14.6 H Absolute Lymphocytes 1.6 Absolute Monocytes 1.4 Absolute Eosinophils 0.0 Absolute Basophils 0.0 Carbonic Acid 1.13 HCO3/H2CO3 Ratio 29:1 ABG pH 7.57 H ABG pCO2 37.5 ABG pO2 89.8 ABG HCO3 33.4 H ABG O2 Saturation 97.8 ABG Base Excess 10.6 FiO2 25% Sodium 141.0 Potassium 3.1 L Chloride 98 Carbon Dioxide 35 H Anion Gap 8 BUN 9 Creatinine 0.48 L Est GFR ( Amer) > 60 Est GFR (Non-Af Amer) > 60 Glucose 88 Calcium 8.0 L Magnesium 1.5 L Triglycerides 98 09/03/18 09/03/18 09/03/18 17:10 23:40 23:40 Creatine Kinase < 20 L CK-MB (CK-2) 1.41 1.40 Troponin I 0.036 0.033 09/04/18 09/04/18 09/04/18 05:50 05:50 12:10 Creatine Kinase < 20 L Cancelled CK-MB (CK-2) 0.98 Troponin I 0.026 09/04/18 09/04/18 09/04/18 12:10 18:03 18:03 Creatine Kinase < 20 L CK-MB (CK-2) 0.37 < 0.22 Troponin I 0.021 0.033 09/04/18 09/04/18 23:40 23:40 Creatine Kinase < 20 L CK-MB (CK-2) 0.23 Troponin I 0.029 Impressions: Chest X-Ray 09/05/18 06:00 IMPRESSION: 1. Stable appearance of the chest. Assessment & Plan - Diagnosis (1) Acute and chronic respiratory failure ([id number]) Qualifiers: Respiratory failure complication: hypoxia and hypercapnia Qualified Code(s) : J96.21 - Acute and chronic respiratory failure with hypoxia; J96.22 - Acute and chronic respiratory failure with hypercapnia; J96.22 - Acute and chronic respiratory failure with hypercapnia; J96.22 - Acute and chronic respiratory failure with hypercapnia Is this a current diagnosis for this admission?: Yes Plan: Good oxygenation and ventilation has been obtained thus far with mechanical ventilation will attempt to wean her to baseline prior to extubation (2) Atrial fibrillation with rapid ventricular response Is this a current diagnosis for this admission?: Yes Plan: Stable at this time Cardizem (3) COPD exacerbation Is this a current diagnosis for this admission?: Yes Plan: Continue current bronchodilator therapy if no obvious infiltrates in the next 24 hours consider starting Pulmicort (4) GERD (gastroesophageal reflux disease) Qualifiers: Esophagitis presence: without esophagitis Qualified Code(s): K21.9 - Gastro -esophageal reflux disease without esophagitis Is this a current diagnosis for this admission?: Yes Plan: H2 drew - Time Total Critical Time (Minutes): 45
[2018-09-05] MEDS: METOPROLOL TARTRATE 25 MG TABLET NG SCH (11:39)
--- NOTE | 2018-09-05 13:17 | PDOC PROGRESS REPORT ---
Subjective Progress Note for:: 09/05/18 Subjective:: Patient is sedated on the ventilator still on IV Sd-Synephrine and IV Cardizem. Her ET tube has minimal secretions she looks comfortable her O2 saturation is 100% I's and O's shows a +492 balance her cumulative. She is afebrile she is tolerating the medication via the oral graphic tube. Appreciate consult from pulmonary and cardiology. Reason For Visit: SVT Physical Exam Vital Signs: Temp Pulse Resp BP Pulse Ox 98.6 F 62 18 93/43 L 95 09/05/18 12:00 09/05/18 12:00 09/05/18 12:00 09/05/18 12:00 09/05/18 12:00 Intake & Output 09/04/18 09/05/18 09/06/18 06:59 06:59 06:59 Intake Total 138 1492 1339 Output Total 80 1870 1329 Balance 58 -378 10 Weight 58 kg 61.4 kg General appearance: PRESENT: no acute distress, well-developed, well-nourished Head exam: PRESENT: atraumatic, normocephalic Eye exam: PRESENT: conjunctiva pink, EOMI, PERRLA. ABSENT: scleral icterus Ear exam: PRESENT: normal external ear exam Mouth exam: PRESENT: moist, tongue midline Throat exam: PRESENT: other Additional comments: Patient is intubated unable to evaluate oral mucosa Neck exam: PRESENT: full ROM. ABSENT: carotid bruit, JVD, lymphadenopathy, thyromegaly Respiratory exam: PRESENT: clear to auscultation jaime, rhonchi Cardiovascular exam: PRESENT: irregular rhythm, systolic murmur Murmur grade: 2 Pulses: PRESENT: normal dorsalis pedis pul, +2 pedal pulses bilateral Vascular exam: PRESENT: normal capillary refill GI/Abdominal exam: PRESENT: normal bowel sounds, soft. ABSENT: distended, guarding, mass, organolmegaly, rebound, tenderness Rectal exam: PRESENT: deferred Additional comments: Sedated though when she is daily weaned off sedation she moves all extremities and opens her eyes Additional comments: She is presently on propofol drip Results Laboratory Results: 09/05/18 06:20 09/05/18 06:20 09/05/18 09/05/18 09/05/18 06:20 06:20 06:20 WBC 17.6 H RBC 3.18 L Hgb 8.8 L Hct 27.9 L MCV 88 MCH 27.8 MCHC 31.6 L RDW 16.1 H Plt Count 401 Seg Neutrophils % 82.9 H Lymphocytes % 9.0 L Monocytes % 7.8 Eosinophils % 0.1 Basophils % 0.2 Absolute Neutrophils 14.6 H Absolute Lymphocytes 1.6 Absolute Monocytes 1.4 Absolute Eosinophils 0.0 Absolute Basophils 0.0 Carbonic Acid 1.13 HCO3/H2CO3 Ratio 29:1 ABG pH 7.57 H ABG pCO2 37.5 ABG pO2 89.8 ABG HCO3 33.4 H ABG O2 Saturation 97.8 ABG Base Excess 10.6 FiO2 25% Sodium 141.0 Potassium 3.1 L Chloride 98 Carbon Dioxide 35 H Anion Gap 8 BUN 9 Creatinine 0.48 L Est GFR ( Amer) > 60 Est GFR (Non-Af Amer) > 60 Glucose 88 Calcium 8.0 L Magnesium 1.5 L Triglycerides 98 09/03/18 17:30 Clean Catch Midstream Urine Culture - Final Pseudomonas Aeruginosa Escherichia Coli 09/03/18 09/03/18 09/03/18 17:10 23:40 23:40 Creatine Kinase < 20 L CK-MB (CK-2) 1.41 1.40 Troponin I 0.036 0.033 09/04/18 09/04/18 09/04/18 05:50 05:50 12:10 Creatine Kinase < 20 L Cancelled CK-MB (CK-2) 0.98 Troponin I 0.026 09/04/18 09/04/18 09/04/18 12:10 18:03 18:03 Creatine Kinase < 20 L CK-MB (CK-2) 0.37 < 0.22 Troponin I 0.021 0.033 09/04/18 09/04/18 23:40 23:40 Creatine Kinase < 20 L CK-MB (CK-2) 0.23 Troponin I 0.029 Impressions: Chest X-Ray 09/05/18 06:00 IMPRESSION: 1. Stable appearance of the chest. Assessment & Plan - Diagnosis (1) Supraventricular tachycardia Is this a current diagnosis for this admission?: Yes Plan: Plan we will wean off the IV Cardizem start Cardizem 60 p.o. every 6 8 hours, start Eliquis 2.5 twice daily (2) Acute and chronic respiratory failure ([id number]) Qualifiers: Respiratory failure complication: hypoxia and hypercapnia Qualified Code(s) : J96.21 - Acute and chronic respiratory failure with hypoxia; J96.22 - Acute and chronic respiratory failure with hypercapnia; J96.22 - Acute and chronic respiratory failure with hypercapnia; J96.22 - Acute and chronic respiratory failure with hypercapnia Is this a current diagnosis for this admission?: Yes Plan: Tinea vent support per pulmonary, beta-2 agonist, Spiriva, inhaled steroids,. If we see that by the end of today no weaning will have dietary evaluation for oral gastric feedings to resume. (3) Anemia Qualifiers: Anemia type: iron deficiency Iron deficiency anemia type: unspecified iron deficiency Qualified Code(s): D50.9 - Iron deficiency anemia, unspecified Is this a current diagnosis for this admission?: Yes Plan: Plan we will give IV iron today (4) Hypokalemia Is this a current diagnosis for this admission?: Yes Plan: Calcium chloride riders 60 M EQ's today (5) Hypomagnesemia Is this a current diagnosis for this admission?: Yes Plan: The 2 g magnesium IV today (6) Septic shock Is this a current diagnosis for this admission?: Yes Plan: And continue fluid resuscitation pressors, IV antibiotics await full sensitivities of the urine. 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
[2018-09-05] MEDS ORDERED: DILTIAZEM HCL 60 MG TABLET NG SCH (14:00)
[2018-09-05] MEDS: LEVALBUTEROL HCL NEB 0.63 MG/3 ML AMPUL NEB PRN (20:32)
[2018-09-05] MEDS: MONTELUKAST SODIUM 10 MG TABLET NG SCH (21:08)
--- NOTE | 2018-09-05 21:11 | Progress Note ---
Provider Note Provider Note: Cardiology PROGRESS NOTE by Dr. Susan Limon on 09/05/2018. Subjective: The patient remains intubated and sedated. She continues to be in atrial flutter, but the ventricular response is well controlled. The patient is no more hypotensive. She is off Sd-Synephrine. Without Sd-Synephrine she is maintaining a stable blood pressure. Her IV Cardizem is also been stopped. Patient has been started on oral beta-drew and oral Cardizem. There is no ventricular arrhythmias seen on the monitor. There is no pedal edema. PHYSICAL EXAMINATION: The patient is well-built and appears to be well- nourished. She is not fighting the ventilator. Selected Entries 09/05/18 09/05/18 09/05/18 16:07 16:08 16:20 Temperature 98.8 F Heart Rate ( 74 Monitors) Respiratory 14 Rate Blood Pressure 97/48 L O2 Sat by Pulse 91 L Oximetry Oxygen Delivery Mechanical Method ( Ventilator includes room air) Fraction of 25 Inspired Oxygen (FIO2) HEAD: Is atraumatic normocephalic. EYES: Pupils are equal round reactive to light. ENT: Is negative. NECK: Is supple. There is no JVD. Carotids equal there is no bruit. LUNGS: Trachea central. Lungs show scattered rhonchi and a few wheezing. There is no rales of CHF at present. HEART: S1-S2 is heard. S1 is of variable intensity. There is no S3 gallop there is no S4 gallop. There is systolic murmur left sternal border and the apex. There is no rub ABDOMEN: Bowel sounds well heard. There is no hepatosplenic megaly. EXTREMITIES: Femorals are diminished there is no femoral bruits leg pulses are diminished. There is no pedal edema. There is no DVT or cellulitis. There is no sinus or clubbing. SOD [facility] not examined since patient intubated and sedated. 09/04/18 09/05/18 09/05/18 23:40 06:20 06:20 WBC Hgb Hct Plt Count Carbonic Acid 1.13 HCO3/H2CO3 Ratio 29:1 ABG pH 7.57 H ABG pCO2 37.5 ABG pO2 89.8 ABG HCO3 33.4 H ABG Total CO2 34.5 H ABG O2 Saturation 97.8 FiO2 25% Sodium 141.0 Potassium 3.1 L Chloride 98 Carbon Dioxide 35 H BUN 9 Creatinine 0.48 L Est GFR (Non-Af Amer) > 60 Glucose 88 Calcium 8.0 L Magnesium 1.5 L CK-MB (CK-2) 0.23 Troponin I 0.029 Triglycerides 98 09/05/18 06:20 WBC 17.6 H Hgb 8.8 L Hct 27.9 L Plt Count 401 Carbonic Acid HCO3/H2CO3 Ratio ABG pH ABG pCO2 ABG pO2 ABG HCO3 ABG Total CO2 ABG O2 Saturation FiO2 Sodium Potassium Chloride Carbon Dioxide BUN Creatinine Est GFR (Non-Af Amer) Glucose Calcium Magnesium CK-MB (CK-2) Troponin I Triglycerides 09/03/18 17:30 Urine Culture - Preliminary Clean Catch Midstream Gram Negative Rods Gram Negative Rods#2 09/03/18 17:10 Blood Culture - Preliminary Blood NO GROWTH IN 24 HOURS IMPRESSION/RECOMMENDATION: Next 1. Acute on chronic hypoxic/hypercapnic respiratory failure.: Note that the patient's hypoxemia and hypercapnia resolved with current treatment. Continue ventilatory support, until patient can be weaned off the ventilator. Continue anti-COPD medication, and antibiotics. 2. Septic shock: Secondary to urinary tract infection exacerbated by the patient's atrial flutter with rapid ventricular response, and the patient's hypercapnic hypoxemic respiratory failure. This is resolved. The patient is off pressors, and with a stable blood pressure. 3. SVT: This is due to atrial flutter with rapid ventricular response controlled: At present the patient's heart rate is better controlled. Note that the patient's Cardizem drip at 5 mg/h, and Sd-Synephrine were able to be discontinued. Note the patient has a history of proximal atrial fibrillation in the past. Would also recommend restarting the patient's Eliquis at 2.5 mg via NG tube every 12 hours. The patient at home was on chronic anticoagulation therapy with Eliquis, and this is being restarted. The patient also has been started on beta-drew which is been increased to 50 mg p.o. every 12 hours in the form of metoprolol, and also the patient on Cardizem. Later would switch the patient to beta-drew alone, and stop the Cardizem which has been started. This is due to the fact that the patient has cardiomyopathy, and coronary artery disease 4. Urinary tract infection with gram-negative rods: Sensitive to almost all antibiotics. At present continue antibiotics. 5. History of coronary artery disease, with no prior history of MO.: No definite evidence of MO this admission. 6. COPD: Continue anti-COPD treatment as being done now. 7. History of hypertension: At present blood pressure is low normal 8. Cardiomyopathy: At present seems to be compensated. No evidence of congestive heart failure by x-ray or clinically. 9. History of depression: This needs to be addressed later when the patient is extubated. 10. Hypokalemia: Would recommend replacing potassium. 11. Hypomagnesemia: We will replace patient's magnesium intravenously. Medications reviewed, and patient was started on digoxin 0.125 mg IV push daily. Discussed with the attending physician, and other caregiving providers on the case. Management plans discussed. Medical decision making is of high complexity. 60 minutes spent on this patient with more than 50% of time spent in direct patient care. We will follow with you
[2018-09-06 06:07] LABS: ARTERIAL BLOOD BASE EXCESS 2.1 mmol/L; ARTERIAL BLOOD H2CO3 1.03 mmol/L (1.05-1.35); ARTERIAL BLOOD HCO3 25.4 mmol/L (20-24); ARTERIAL BLOOD O2 SATURATION 94.6 % (94-98); ARTERIAL BLOOD PCO2 34.2 mmHg (35-45); ARTERIAL BLOOD PH 7.49 (7.35-7.45); ARTERIAL BLOOD PO2 66.3 mmHg (80-100); ARTERIAL BLOOD TOTAL CO2 26.4 mmol/L (21-25); HEMATOCRIT 26.3 % (36.0-47.0); HEMOGLOBIN 8.6 g/dL (12.0-15.5); MEAN CORPUSCULAR HEMOGLOBIN 28.7 pg (27.0-33.4); MEAN CORPUSCULAR HGB CONC 32.8 g/dL (32.0-36.0); MEAN CORPUSCULAR VOLUME 88 fl (80-97); PLATELET COUNT 326 10^3/uL (150-450); RED CELL DISTRIBUTION WIDTH 15.8 % (11.5-14.0); WHITE BLOOD COUNT 10.7 10^3/uL (4.0-10.5)
[2018-09-06 06:08] LABS: ARTERIAL BLOOD FIO2 25%
[2018-09-06 06:25] LABS: ALANINE AMINOTRANSFERASE 16 U/L (9-52); ALBUMIN 2.1 g/dL (3.5-5.0); ALKALINE PHOSPHATASE 65 U/L (38-126); ANION GAP 9 (5-19); ASPARTATE AMINO TRANSFERASE 9 U/L (14-36); BILIRUBIN,DIRECT 0.3 mg/dL (0.0-0.4); BILIRUBIN,TOTAL 0.4 mg/dL (0.2-1.3); BLOOD UREA NITROGEN 9 mg/dL (7-20); CALCIUM 7.4 mg/dL (8.4-10.2); CARBON DIOXIDE 27 mmol/L (22-30); CHLORIDE 106 mmol/L (98-107); GLUCOSE 72 mg/dL (75-110); POTASSIUM 3.4 mmol/L (3.6-5.0); SODIUM 142.3 mmol/L (137-145); TOTAL PROTEIN 4.3 g/dL (6.3-8.2)
--- NOTE | 2018-09-06 06:29 | RADIOLOGY REPORT (SQ) ---
Chest single view on 09/06/2018 at 6:11 AM CLINICAL INDICATION: Respiratory failure COMPARISON: 09/05/2018 FINDINGS: ET tube tip is in the midthoracic trachea. NG tube extends below the diaphragm. Multiple overlying wires are noted. Right IJ catheter tip extends into the right atrium. There is mild right basilar atelectasis. Patient is rotated on this exam. The lungs are otherwise clear. Heart is upper limits normal for size. Pulmonary vascularity is within normal limits. IMPRESSION: No significant change in the appearance of the chest.
[2018-09-06] MEDS: PROPOFOL 1,000 MG/100 ML INFUS..BTL IV PRN ×3 (06:30→17:36)
[2018-09-06] MEDS: DILTIAZEM HCL 60 MG TABLET NG SCH ×3 (06:30→21:08)
[2018-09-06 06:34] LABS: ABSOLUTE MONOCYTES # (MANUAL) 0.9 10^3/uL (0.1-1.4); ABSOLUTE NEUTROPHILS# (MANUAL) 8.8 10^3/uL (1.7-8.2); ANISOCYTOSIS 1+; BASOPHILS % (MANUAL) 0 % (0-2); EOSINOPHILS % (MANUAL) 1 % (0-6); LYMPHOCYTES % (MANUAL) 9 % (13-45); MONOCYTES % (MANUAL) 8 % (3-13); POIKILOCYTOSIS SLIGHT; SEGMENTED NEUTROPHILS % (MAN) 82 % (42-78); TOTAL CELLS COUNTED 100; TOXIC VACUOLATION PRESENT
[2018-09-06 06:35] LABS: OVALOCYTES SLIGHT; PLATELET COMMENT ADEQUATE; SCHISTOCYTES 1+; TOXIC GRANULATION SLIGHT
[2018-09-06] MEDS: NORMAL SALINE 1000 ML 1,000 ML IV PRN ×2 (07:42→17:36)
[2018-09-06] MEDS: POTASSI CL 20 MEQ/50 ML RIDER 20 MEQ/50 ML RTUPB IV SCH ×2 (08:03→10:15)
[2018-09-06] MEDS: BUDESONIDE NEB 0.5 MG/2 ML AMPUL NEB SCH ×2 (08:17→19:59)
[2018-09-06] MEDS: LEVALBUTEROL HCL NEB 0.63 MG/3 ML AMPUL NEB PRN ×2 (08:17→19:59)
[2018-09-06] MEDS: METOPROLOL TARTRATE 50 MG TABLET NG SCH ×2 (09:19→21:08)
[2018-09-06] MEDS: LEVOFLOXACIN 750 MG/D5W RTU 750 MG/150 ML RTUPB IV SCH (09:19)
[2018-09-06] MEDS: PRAMIPEXOLE DI-HCL 0.25 MG TABLET NG SCH (09:20)
[2018-09-06] MEDS: TOLTERODINE TARTRATE 1 MG TABLET NG SCH ×2 (09:20→21:11)
[2018-09-06] MEDS: APIXABAN 2.5 MG TABLET NG SCH ×2 (09:20→17:36)
[2018-09-06] MEDS: DOCUSATE SODIUM 100 MG/10 ML UDC NG SCH ×2 (09:20→17:36)
[2018-09-06] MEDS: ROFLUMILAST 500 MCG TABLET NG SCH (09:20)
[2018-09-06] MEDS: PANTOPRAZOLE SODIUM 40 MG VIAL IV SCH (09:20)
[2018-09-06] MEDS: DIGOXIN INJ 0.5 MG/2 ML AMPULE IV SCH (09:21)
[2018-09-06] MEDS: TIOTROPIUM BROMIDE DPI 5 CAP/KIT (18 MCG/CAP) IH SCH (09:31)
--- NOTE | 2018-09-06 13:14 | PDOC PROGRESS REPORT ---
Subjective Progress Note for:: 09/06/18 Subjective:: Patient today is in weaning trial she is awake she follows simple commands she is not tachypneic but looks comfortable she is afebrile her urine output is good there is not a lot of increased pulmonary secretions she is tolerating the oral gastric medications without residuals. Reason For Visit: SVT Physical Exam Vital Signs: Temp Pulse Resp BP Pulse Ox 97.7 F 71 25 H 119/42 L 97 09/06/18 13:00 09/06/18 13:00 09/06/18 13:00 09/06/18 13:00 09/06/18 13:00 Intake & Output 09/05/18 09/06/18 09/07/18 06:59 06:59 06:59 Intake Total 1642 3515 1141 Output Total 1870 2079 605 Balance -228 1436 536 Weight 61.4 kg 65.1 kg General appearance: PRESENT: no acute distress, well-developed, well-nourished Head exam: PRESENT: atraumatic, normocephalic Eye exam: PRESENT: conjunctiva pink, EOMI, PERRLA. ABSENT: scleral icterus Ear exam: PRESENT: normal external ear exam Mouth exam: PRESENT: moist, tongue midline Neck exam: PRESENT: full ROM. ABSENT: carotid bruit, JVD, lymphadenopathy, thyromegaly Respiratory exam: PRESENT: rhonchi Cardiovascular exam: PRESENT: systolic murmur Murmur grade: 2 Pulses: PRESENT: normal dorsalis pedis pul, +2 pedal pulses bilateral Vascular exam: PRESENT: normal capillary refill GI/Abdominal exam: PRESENT: normal bowel sounds, soft. ABSENT: distended, guarding, mass, organolmegaly, rebound, tenderness Rectal exam: PRESENT: deferred Extremities exam: PRESENT: full ROM Musculoskeletal exam: PRESENT: other Additional comments: Patient currently is still on the vent so she is bed ridden. Neurological exam: PRESENT: awake Additional comments: Simple commands Psychiatric exam: PRESENT: appropriate affect, normal mood. ABSENT: homicidal ideation, suicidal ideation Skin exam: PRESENT: dry, intact, warm. ABSENT: cyanosis, rash Results Laboratory Results: 09/06/18 05:50 09/06/18 05:50 09/06/18 09/06/18 09/06/18 05:50 05:50 05:50 WBC 10.7 H RBC 3.00 L Hgb 8.6 L Hct 26.3 L MCV 88 MCH 28.7 MCHC 32.8 RDW 15.8 H Plt Count 326 Seg Neutrophils % Not Reportable Lymphocytes % Not Reportable Monocytes % Not Reportable Eosinophils % Not Reportable Basophils % Not Reportable Absolute Neutrophils Not Reportable Absolute Lymphocytes Not Reportable Absolute Monocytes Not Reportable Absolute Eosinophils Not Reportable Absolute Basophils Not Reportable Carbonic Acid 1.03 L HCO3/H2CO3 Ratio 24:1 ABG pH 7.49 H ABG pCO2 34.2 L ABG pO2 66.3 L ABG HCO3 25.4 H ABG O2 Saturation 94.6 ABG Base Excess 2.1 FiO2 25% Sodium 142.3 Potassium 3.4 L Chloride 106 Carbon Dioxide 27 Anion Gap 9 BUN 9 Creatinine 0.48 L Est GFR ( Amer) > 60 Est GFR (Non-Af Amer) > 60 Glucose 72 L Calcium 7.4 L Magnesium 2.0 Total Bilirubin 0.4 AST 9 L ALT 16 Alkaline Phosphatase 65 Total Protein 4.3 L Albumin 2.1 L Blood Type Antibody Screen 09/06/18 09:08 WBC RBC Hgb Hct MCV MCH MCHC RDW Plt Count Seg Neutrophils % Lymphocytes % Monocytes % Eosinophils % Basophils % Absolute Neutrophils Absolute Lymphocytes Absolute Monocytes Absolute Eosinophils Absolute Basophils Carbonic Acid HCO3/H2CO3 Ratio ABG pH ABG pCO2 ABG pO2 ABG HCO3 ABG O2 Saturation ABG Base Excess FiO2 Sodium Potassium Chloride Carbon Dioxide Anion Gap BUN Creatinine Est GFR ( Amer) Est GFR (Non-Af Amer) Glucose Calcium Magnesium Total Bilirubin AST ALT Alkaline Phosphatase Total Protein Albumin Blood Type O POSITIVE Antibody Screen NEGATIVE 09/03/18 17:30 Clean Catch Midstream Urine Culture - Final Pseudomonas Aeruginosa Escherichia Coli 09/03/18 09/03/18 09/03/18 17:10 23:40 23:40 Creatine Kinase < 20 L CK-MB (CK-2) 1.41 1.40 Troponin I 0.036 0.033 09/04/18 09/04/18 09/04/18 05:50 05:50 12:10 Creatine Kinase < 20 L Cancelled CK-MB (CK-2) 0.98 Troponin I 0.026 09/04/18 09/04/18 09/04/18 12:10 18:03 18:03 Creatine Kinase < 20 L CK-MB (CK-2) 0.37 < 0.22 Troponin I 0.021 0.033 09/04/18 09/04/18 23:40 23:40 Creatine Kinase < 20 L CK-MB (CK-2) 0.23 Troponin I 0.029 Impressions: Chest X-Ray 09/06/18 06:00 IMPRESSION: No significant change in the appearance of the chest. Assessment & Plan - Diagnosis (1) Supraventricular tachycardia Is this a current diagnosis for this admission?: Yes Plan: Currently is on oral Cardizem and Eliquis has been resumed she is maintaining rate control. (2) Acute and chronic respiratory failure ([id number]) Qualifiers: Respiratory failure complication: hypoxia and hypercapnia Qualified Code(s) : J96.21 - Acute and chronic respiratory failure with hypoxia; J96.22 - Acute and chronic respiratory failure with hypercapnia; J96.22 - Acute and chronic respiratory failure with hypercapnia; J96.22 - Acute and chronic respiratory failure with hypercapnia Is this a current diagnosis for this admission?: Yes Plan: Continue beta-2 agonist continue inotrope p.m., continue inhaled steroids supplemental oxygen will await weaning trial results. Pain elevated head of bed at 45 degrees daily weaning trials (3) Anemia Qualifiers: Anemia type: iron deficiency Iron deficiency anemia type: unspecified iron deficiency Qualified Code(s): D50.9 - Iron deficiency anemia, unspecified Is this a current diagnosis for this admission?: Yes Plan: Due to her multiple comorbidities chronic hypoxic respiratory failure, hypotension, SVT, coronary artery disease we will transfuse 1 unit of packed RBCs today. (4) Hypokalemia Is this a current diagnosis for this admission?: Yes (5) Hypomagnesemia Is this a current diagnosis for this admission?: Yes (6) Septic shock Is this a current diagnosis for this admission?: Yes Plan: This seems to be improving as she is no longer on pressors we will continue the Levaquin until we get the sensitivities for the Pseudomonas and E. coli in the urine. 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
--- NOTE | 2018-09-06 14:22 | PDOC PROGRESS REPORT ---
Subjective Progress Note for:: 09/06/18 Subjective:: Intubated and sedated Reason For Visit: SVT Physical Exam Vital Signs: Temp Pulse Resp BP Pulse Ox 98.2 F 76 20 98/47 L 96 09/06/18 08:00 09/06/18 08:17 09/06/18 08:17 09/06/18 08:00 09/06/18 08:35 Intake & Output 09/05/18 09/06/18 09/07/18 06:59 06:59 06:59 Intake Total 1492 3515 1000 Output Total 1870 2079 35 Balance -378 1436 965 Weight 61.4 kg 65.1 kg General appearance: PRESENT: no acute distress, disheveled, well-developed. ABSENT: cooperative Head exam: PRESENT: atraumatic, normocephalic Eye exam: PRESENT: conjunctiva pale. ABSENT: nystagmus, periorbital swelling, scleral icterus Mouth exam: PRESENT: dry mucosa, neck supple, tongue midline, other - ET tube in place Neck exam: ABSENT: carotid bruit, JVD, lymphadenopathy, thyromegaly, tracheal deviation, tracheostomy Respiratory exam: PRESENT: decreased breath sounds, prolonged expiratory phas, rhonchi, symmetrical, unlabored. ABSENT: retraction, stridor Cardiovascular exam: PRESENT: RRR, +S1, +S2, tachycardia Pulses: PRESENT: normal radial pulses GI/Abdominal exam: PRESENT: soft Gentrourinary exam: PRESENT: indwelling catheter Extremities exam: ABSENT: calf tenderness, clubbing, joint swelling Musculoskeletal exam: ABSENT: deformity, dislocation Neurological exam: ABSENT: awake Skin exam: PRESENT: dry, warm Results Laboratory Results: 09/06/18 05:50 09/06/18 05:50 09/06/18 09/06/18 09/06/18 05:50 05:50 05:50 WBC 10.7 H RBC 3.00 L Hgb 8.6 L Hct 26.3 L MCV 88 MCH 28.7 MCHC 32.8 RDW 15.8 H Plt Count 326 Seg Neutrophils % Not Reportable Lymphocytes % Not Reportable Monocytes % Not Reportable Eosinophils % Not Reportable Basophils % Not Reportable Absolute Neutrophils Not Reportable Absolute Lymphocytes Not Reportable Absolute Monocytes Not Reportable Absolute Eosinophils Not Reportable Absolute Basophils Not Reportable Carbonic Acid 1.03 L HCO3/H2CO3 Ratio 24:1 ABG pH 7.49 H ABG pCO2 34.2 L ABG pO2 66.3 L ABG HCO3 25.4 H ABG O2 Saturation 94.6 ABG Base Excess 2.1 FiO2 25% Sodium 142.3 Potassium 3.4 L Chloride 106 Carbon Dioxide 27 Anion Gap 9 BUN 9 Creatinine 0.48 L Est GFR ( Amer) > 60 Est GFR (Non-Af Amer) > 60 Glucose 72 L Calcium 7.4 L Magnesium 2.0 Total Bilirubin 0.4 AST 9 L ALT 16 Alkaline Phosphatase 65 Total Protein 4.3 L Albumin 2.1 L 09/03/18 17:30 Clean Catch Midstream Urine Culture - Final Pseudomonas Aeruginosa Escherichia Coli 09/03/18 09/03/18 09/03/18 17:10 23:40 23:40 Creatine Kinase < 20 L CK-MB (CK-2) 1.41 1.40 Troponin I 0.036 0.033 09/04/18 09/04/18 09/04/18 05:50 05:50 12:10 Creatine Kinase < 20 L Cancelled CK-MB (CK-2) 0.98 Troponin I 0.026 09/04/18 09/04/18 09/04/18 12:10 18:03 18:03 Creatine Kinase < 20 L CK-MB (CK-2) 0.37 < 0.22 Troponin I 0.021 0.033 09/04/18 09/04/18 23:40 23:40 Creatine Kinase < 20 L CK-MB (CK-2) 0.23 Troponin I 0.029 Impressions: Chest X-Ray 09/06/18 06:00 IMPRESSION: No significant change in the appearance of the chest. Assessment & Plan - Diagnosis (1) Acute and chronic respiratory failure ([id number]) Qualifiers: Respiratory failure complication: hypoxia and hypercapnia Qualified Code(s) : J96.21 - Acute and chronic respiratory failure with hypoxia; J96.22 - Acute and chronic respiratory failure with hypercapnia; J96.22 - Acute and chronic respiratory failure with hypercapnia; J96.22 - Acute and chronic respiratory failure with hypercapnia Is this a current diagnosis for this admission?: Yes Plan: Oxygenation and ventilation improving continue weaning trials (2) Atrial fibrillation with rapid ventricular response Is this a current diagnosis for this admission?: Yes Plan: Stable at this time (3) COPD exacerbation Is this a current diagnosis for this admission?: Yes Plan: Continue current bronchodilator therapy if no obvious infiltrates in the next 24 hours consider starting Pulmicort (4) GERD (gastroesophageal reflux disease) Qualifiers: Esophagitis presence: without esophagitis Qualified Code(s): K21.9 - Gastro -esophageal reflux disease without esophagitis Is this a current diagnosis for this admission?: Yes Plan: H2 drew - Time Total Critical Time (Minutes): 40
[2018-09-06 16:31] LABS: HEMATOCRIT 32.1 % (36.0-47.0); HEMOGLOBIN 10.3 g/dL (12.0-15.5); MEAN CORPUSCULAR HEMOGLOBIN 28.9 pg (27.0-33.4); MEAN CORPUSCULAR HGB CONC 32.2 g/dL (32.0-36.0); MEAN CORPUSCULAR VOLUME 90 fl (80-97); PLATELET COUNT 360 10^3/uL (150-450); RED BLOOD COUNT 3.57 10^6/uL (3.72-5.28); RED CELL DISTRIBUTION WIDTH 16.4 % (11.5-14.0); WHITE BLOOD COUNT 10.5 10^3/uL (4.0-10.5)
--- NOTE | 2018-09-06 19:09 | Progress Note ---
Provider Note Provider Note: CARDIOLOGY PROGRESS NOTE by Dr. Susan Ho on 09/06/2018. OBJECTIVE. The patient sedation has been lightened, and the patient is awake and does follow commands. She shortly will be having a weaning trial. She now is in atrial fibrillation with controlled ventricular response. There is no ventricular arrhythmias. The patient States she has no chest pain or discomfort. There is no pedal edema. The patient denies shortness of breath by gesturing no. PHYSICAL EXAMINATION: The patient is well-built and well-nourished. She is in no acute distress. She is well-groomed. Selected Entries 09/06/18 09/06/18 14:27 14:29 Temperature 97.7 F Heart Rate ( 60 Monitors) Respiratory 27 H Rate Blood Pressure 110/40 L Blood Pressure 63 Mean O2 Sat by Pulse 96 Oximetry Oxygen Delivery Mechanical Method ( Ventilator includes room air) Percent of 35 Oxygen HEAD: Is atraumatic normocephalic. EYES: Pupils are equal round reactive to light. ENT: Is negative. NECK: Is supple. There is no JVD. Carotids equal there is no bruit. LUNGS: Trachea central. Lungs show scattered rhonchi and a few wheezing. There is no rales of CHF at present. HEART: S1-S2 is heard. S1 is of variable intensity. There is no S3 gallop there is no S4 gallop. There is systolic murmur left sternal border and the apex. There is no rub ABDOMEN: Bowel sounds well heard. There is no hepatosplenic megaly. EXTREMITIES: Femorals are diminished there is no femoral bruits leg pulses are diminished. There is no pedal edema. There is no DVT or cellulitis. There is no sinus or clubbing. TAR HEEL: THERE IS NO FOCAL DEFICITS. THE PATIENT IS ABLE TO FOLLOW COMMANDS. PSYCHIATRIC the patient does not appear to be agitated. 09/05/18 09/06/18 09/06/18 06:20 05:50 05:50 WBC Hgb Hct Plt Count Carbonic Acid 1.03 L HCO3/H2CO3 Ratio 24:1 ABG pH 7.49 H ABG pCO2 34.2 L ABG pO2 66.3 L ABG HCO3 25.4 H ABG Total CO2 26.4 H ABG O2 Saturation 94.6 ABG Base Excess 2.1 FiO2 25% Sodium 142.3 Potassium 3.4 L Chloride 106 Carbon Dioxide 27 Anion Gap 9 Creatinine 0.48 L Est GFR (Non-Af Amer) > 60 Glucose 72 L Calcium 7.4 L Magnesium 2.0 Total Bilirubin 0.4 Direct Bilirubin 0.3 Neonat Total Bilirubin Not Reportable Neonat Direct Bilirubin Not Reportable Neonat Indirect Bili Not Reportable AST 9 L ALT 16 Alkaline Phosphatase 65 Total Protein 4.3 L Albumin 2.1 L Triglycerides 98 09/06/18 16:15 WBC 10.5 Hgb 10.3 L Hct 32.1 L Plt Count 360 Carbonic Acid HCO3/H2CO3 Ratio ABG pH ABG pCO2 ABG pO2 ABG HCO3 ABG Total CO2 ABG O2 Saturation ABG Base Excess FiO2 Sodium Potassium Chloride Carbon Dioxide Anion Gap Creatinine Est GFR (Non-Af Amer) Glucose Calcium Magnesium Total Bilirubin Direct Bilirubin Neonat Total Bilirubin Neonat Direct Bilirubin Neonat Indirect Bili AST ALT Alkaline Phosphatase Total Protein Albumin Triglycerides Chest X-Ray: Shows Upper Normal Cardiac Size. There Is a Right Basal Atelectasis in the Lung. There Is No Heart Failure. IMPRESSION/RECOMMENDATION: Next 1. Acute on chronic hypoxic/hypercapnic respiratory failure.: Note that the patient's hypoxemia and hypercapnia resolved with current treatment. Continue ventilatory support, until patient can be weaned off the ventilator. The patient much improved, and weaning trial is going to be done later today. Continue anti-COPD medication, and antibiotics. 2. Septic shock: Secondary to urinary tract infection exacerbated by the patient's atrial flutter with rapid ventricular response, and the patient's hypercapnic hypoxemic respiratory failure. This is resolved. The patient is off pressors, and with a stable blood pressure. 3. SVT: This is due to atrial flutter with rapid ventricular response controlled: At present the patient's heart rate is better controlled. Note that the patient's Cardizem drip at 5 mg/h, and Sd-Synephrine were able to be discontinued. Note the patient has a history of proximal atrial fibrillation in the past. Would continue the patient's Eliquis at 2.5 mg via NG tube every 12 hours. The patient at home was on chronic anticoagulation therapy with Eliquis, and this is being restarted. The patient also has been started on beta -drew which is been increased to 50 mg p.o. every 12 hours in the form of metoprolol, and also the patient on Cardizem. Later would switch the patient to beta-drew alone, and stop the Cardizem which has been started. This is due to the fact that the patient has cardiomyopathy, and coronary artery disease 4. Urinary tract infection with gram-negative rods: Sensitive to almost all antibiotics. At present continue antibiotics. 5. History of coronary artery disease, with no prior history of ND.: No definite evidence of ND this admission. 6. COPD: Continue anti-COPD treatment as being done now. 7. History of hypertension: At present blood pressure is low normal 8. Cardiomyopathy: At present seems to be compensated. No evidence of congestive heart failure by x-ray or clinically. 9. History of depression: This needs to be addressed later when the patient is extubated. 10. Hypokalemia: Would recommend replacing potassium. The patient is still slightly hypokalemic. Continue potassium replacements. 11. Hypomagnesemia: Resolved. Magnesium levels are now normal, after replacement. Patient medications have been reviewed. Medical decision making is now of moderate complexity. Discussed with the attending physician and other caregiving providers on the case. 40 minutes spent on this patient more than 50 % of time spent in direct patient care. We will follow with you. .
[2018-09-06] MEDS: FENTANYL CITRATE INJ/PF 100 MCG/2 ML AMPUL IV PRN (20:22)
[2018-09-06] MEDS: MONTELUKAST SODIUM 10 MG TABLET NG SCH (21:08)
[2018-09-07] MEDS: PROPOFOL 1,000 MG/100 ML INFUS..BTL IV PRN ×2 (00:57→06:27)
[2018-09-07] MEDS: NORMAL SALINE 1000 ML 1,000 ML IV PRN ×3 (02:22→23:20)
[2018-09-07 06:27] LABS: ARTERIAL BLOOD BASE EXCESS -0.3 mmol/L; ARTERIAL BLOOD FIO2 25%; ARTERIAL BLOOD H2CO3 1.32 mmol/L (1.05-1.35); ARTERIAL BLOOD O2 SATURATION 91.8 % (94-98); ARTERIAL BLOOD PCO2 43.8 mmHg (35-45); ARTERIAL BLOOD PH 7.38 (7.35-7.45); ARTERIAL BLOOD PO2 63.8 mmHg (80-100); ARTERIAL BLOOD TOTAL CO2 26.4 mmol/L (21-25)
[2018-09-07] MEDS: DILTIAZEM HCL 60 MG TABLET NG SCH ×3 (06:27→22:07)
[2018-09-07 06:29] LABS: HEMATOCRIT 28.5 % (36.0-47.0); HEMOGLOBIN 9.3 g/dL (12.0-15.5); MEAN CORPUSCULAR HGB CONC 32.5 g/dL (32.0-36.0); MEAN CORPUSCULAR VOLUME 89 fl (80-97); PLATELET COUNT 326 10^3/uL (150-450); RED BLOOD COUNT 3.19 10^6/uL (3.72-5.28); RED CELL DISTRIBUTION WIDTH 16.4 % (11.5-14.0); WHITE BLOOD COUNT 9.9 10^3/uL (4.0-10.5)
--- NOTE | 2018-09-07 06:35 | RADIOLOGY REPORT (SQ) ---
EXAM DESCRIPTION: X-ray single view chest. CLINICAL HISTORY: 72 years Female, resp failure COMPARISON: Prior portable chest performed on 09/06/2018 and 09/05/2018 TECHNIQUE: Single portable view of the chest performed on 09/07/2018 at 5:34 AM FINDINGS: The lungs are well expanded. There is mild opacification along the right inferior hemithorax which is nonspecific and may be due to edema, atelectasis or pneumonia. There is no evidence of a pneumothorax. The cardiac silhouette is normal in size and configuration. The mediastinal contours are normal. No acute osseous abnormality is identified. There are degenerative changes of the spine. No focal soft tissue abnormalities are seen. Lines and tubes: The endotracheal tube and feeding tube are grossly stable. The right IJ central venous catheter tip overlies the region of the cavoatrial junction. IMPRESSION: 1. Overall, no significant change when compared to the prior studies. 2. Mild patchy parenchymal opacification in the right inferior hemithorax which may be due to edema, atelectasis or pneumonia.
[2018-09-07 06:45] LABS: ALANINE AMINOTRANSFERASE 16 U/L (9-52); ALBUMIN 1.8 g/dL (3.5-5.0); ALKALINE PHOSPHATASE 64 U/L (38-126); ANION GAP 7 (5-19); ASPARTATE AMINO TRANSFERASE 8 U/L (14-36); BILIRUBIN,DIRECT 0.1 mg/dL (0.0-0.4); BILIRUBIN,TOTAL 0.2 mg/dL (0.2-1.3); BLOOD UREA NITROGEN 7 mg/dL (7-20); CALCIUM 7.3 mg/dL (8.4-10.2); CARBON DIOXIDE 26 mmol/L (22-30); CHLORIDE 112 mmol/L (98-107); GLUCOSE 85 mg/dL (75-110); POTASSIUM 3.8 mmol/L (3.6-5.0); SODIUM 144.8 mmol/L (137-145)
[2018-09-07 06:51] LABS: ABSOLUTE LYMPHOCYTES# (MANUAL) 1.4 10^3/uL (0.5-4.7); ABSOLUTE MONOCYTES # (MANUAL) 0.6 10^3/uL (0.1-1.4); ABSOLUTE NEUTROPHILS# (MANUAL) 7.7 10^3/uL (1.7-8.2); BAND NEUTROPHILS % (MANUAL) 4 % (3-5); BASOPHILS % (MANUAL) 0 % (0-2); EOSINOPHILS % (MANUAL) 2 % (0-6); LYMPHOCYTES % (MANUAL) 14 % (13-45); MONOCYTES % (MANUAL) 6 % (3-13); NUCLEATED RED BLOOD CELLS 1 /100 WBC (0); SEGMENTED NEUTROPHILS % (MAN) 74 % (42-78); TOTAL CELLS COUNTED 100
[2018-09-07 06:52] LABS: ANISOCYTOSIS 1+; OVALOCYTES SLIGHT; PLATELET COMMENT ADEQUATE; POIKILOCYTOSIS SLIGHT
[2018-09-07] MEDS: LEVALBUTEROL HCL NEB 0.63 MG/3 ML AMPUL NEB PRN ×2 (08:28→21:37)
[2018-09-07] MEDS: BUDESONIDE NEB 0.5 MG/2 ML AMPUL NEB SCH ×2 (08:31→21:37)
[2018-09-07] MEDS: TIOTROPIUM BROMIDE DPI 5 CAP/KIT (18 MCG/CAP) IH SCH (09:50)
[2018-09-07] MEDS: PRAMIPEXOLE DI-HCL 0.25 MG TABLET NG SCH (09:51)
[2018-09-07] MEDS: PANTOPRAZOLE SODIUM 40 MG VIAL IV SCH (09:51)
[2018-09-07] MEDS: TOLTERODINE TARTRATE 1 MG TABLET NG SCH ×2 (09:51→22:08)
[2018-09-07] MEDS: ROFLUMILAST 500 MCG TABLET NG SCH (09:51)
[2018-09-07] MEDS: METOPROLOL TARTRATE 50 MG TABLET NG SCH ×2 (09:51→22:08)
[2018-09-07] MEDS: DOCUSATE SODIUM 100 MG/10 ML UDC NG SCH ×2 (09:51→17:07)
[2018-09-07] MEDS: APIXABAN 2.5 MG TABLET NG SCH ×2 (09:51→17:07)
[2018-09-07] MEDS: DIGOXIN INJ 0.5 MG/2 ML AMPULE IV SCH (09:52)
[2018-09-07] MEDS: FENTANYL CITRATE INJ/PF 100 MCG/2 ML AMPUL IV PRN ×2 (10:14→17:07)
[2018-09-07] MEDS ORDERED: DEXAMETHASONE SOD PHOSPHATE INJ 4 MG/1 ML VIAL IV ONE (10:30)
--- NOTE | 2018-09-07 11:14 | PDOC PROGRESS REPORT ---
Subjective Progress Note for:: 09/07/18 Subjective:: Patient is intubated she is comfortable in weaning trials,afebrile tolerating feeding and no secretion from ET tube. Reason For Visit: SVT Physical Exam Vital Signs: Temp Pulse Resp BP Pulse Ox 98.1 F 72 25 H 108/56 L 93 09/07/18 06:00 09/07/18 08:31 09/07/18 08:31 09/07/18 05:50 09/07/18 09:10 Intake & Output 09/06/18 09/07/18 09/08/18 06:59 06:59 06:59 Intake Total 3515 3923 32 Output Total 2079 2145 Balance 1436 1778 32 Weight 65.1 kg 68.7 kg General appearance: PRESENT: no acute distress, well-developed, well-nourished Head exam: PRESENT: atraumatic, normocephalic Eye exam: PRESENT: conjunctiva pink, EOMI, PERRLA. ABSENT: scleral icterus Ear exam: PRESENT: normal external ear exam Mouth exam: PRESENT: moist, tongue midline Neck exam: PRESENT: full ROM. ABSENT: carotid bruit, JVD, lymphadenopathy, thyromegaly Respiratory exam: PRESENT: clear to auscultation jaime Cardiovascular exam: PRESENT: systolic murmur Murmur grade: 2 Pulses: PRESENT: normal dorsalis pedis pul, +2 pedal pulses bilateral Vascular exam: PRESENT: normal capillary refill GI/Abdominal exam: PRESENT: normal bowel sounds, soft. ABSENT: distended, guarding, mass, organolmegaly, rebound, tenderness Rectal exam: PRESENT: deferred Extremities exam: PRESENT: full ROM Musculoskeletal exam: PRESENT: other Additional comments: patient is on ventilator Neurological exam: PRESENT: alert, awake, oriented to person, oriented to place , oriented to time, oriented to situation, CN II-XII grossly intact. ABSENT: motor sensory deficit Psychiatric exam: PRESENT: appropriate affect, normal mood. ABSENT: homicidal ideation, suicidal ideation Skin exam: PRESENT: dry, intact, warm. ABSENT: cyanosis, rash Results Laboratory Results: 09/07/18 06:15 09/07/18 06:15 09/06/18 09/07/18 09/07/18 16:15 06:15 06:15 WBC 10.5 9.9 RBC 3.57 L 3.19 L Hgb 10.3 L 9.3 L Hct 32.1 L 28.5 L MCV 90 89 MCH 28.9 29.0 MCHC 32.2 32.5 RDW 16.4 H 16.4 H Plt Count 360 326 Seg Neutrophils % Not Reportable Lymphocytes % Not Reportable Monocytes % Not Reportable Eosinophils % Not Reportable Basophils % Not Reportable Absolute Neutrophils Not Reportable Absolute Lymphocytes Not Reportable Absolute Monocytes Not Reportable Absolute Eosinophils Not Reportable Absolute Basophils Not Reportable Carbonic Acid 1.32 HCO3/H2CO3 Ratio 18:1 ABG pH 7.38 ABG pCO2 43.8 ABG pO2 63.8 L ABG HCO3 25.0 H ABG O2 Saturation 91.8 L ABG Base Excess -0.3 FiO2 25% Sodium Potassium Chloride Carbon Dioxide Anion Gap BUN Creatinine Est GFR ( Amer) Est GFR (Non-Af Amer) Glucose Calcium Magnesium Total Bilirubin AST ALT Alkaline Phosphatase Total Protein Albumin 09/07/18 06:15 WBC RBC Hgb Hct MCV MCH MCHC RDW Plt Count Seg Neutrophils % Lymphocytes % Monocytes % Eosinophils % Basophils % Absolute Neutrophils Absolute Lymphocytes Absolute Monocytes Absolute Eosinophils Absolute Basophils Carbonic Acid HCO3/H2CO3 Ratio ABG pH ABG pCO2 ABG pO2 ABG HCO3 ABG O2 Saturation ABG Base Excess FiO2 Sodium 144.8 Potassium 3.8 Chloride 112 H Carbon Dioxide 26 Anion Gap 7 BUN 7 Creatinine 0.43 L Est GFR ( Amer) > 60 Est GFR (Non-Af Amer) > 60 Glucose 85 Calcium 7.3 L Magnesium 1.8 Total Bilirubin 0.2 AST 8 L ALT 16 Alkaline Phosphatase 64 Total Protein 4.0 L Albumin 1.8 L 09/03/18 09/03/18 09/03/18 17:10 23:40 23:40 Creatine Kinase < 20 L CK-MB (CK-2) 1.41 1.40 Troponin I 0.036 0.033 NT-Pro-B Natriuret Pep 09/04/18 09/04/18 09/04/18 05:50 05:50 12:10 Creatine Kinase < 20 L Cancelled CK-MB (CK-2) 0.98 Troponin I 0.026 NT-Pro-B Natriuret Pep 09/04/18 09/04/18 09/04/18 12:10 18:03 18:03 Creatine Kinase < 20 L CK-MB (CK-2) 0.37 < 0.22 Troponin I 0.021 0.033 NT-Pro-B Natriuret Pep 09/04/18 09/04/18 09/07/18 23:40 23:40 06:15 Creatine Kinase < 20 L CK-MB (CK-2) 0.23 Troponin I 0.029 NT-Pro-B Natriuret Pep 837 Impressions: Chest X-Ray 09/07/18 06:00 IMPRESSION: 1. Overall, no significant change when compared to the prior studies. 2. Mild patchy parenchymal opacification in the right inferior hemithorax which may be due to edema, atelectasis or pneumonia. Assessment & Plan - Diagnosis (1) Supraventricular tachycardia Is this a current diagnosis for this admission?: Yes Plan: cont cardiezam and eliquis (2) Acute and chronic respiratory failure ([id number]) Qualifiers: Respiratory failure complication: hypoxia and hypercapnia Qualified Code(s) : J96.21 - Acute and chronic respiratory failure with hypoxia; J96.22 - Acute and chronic respiratory failure with hypercapnia; J96.22 - Acute and chronic respiratory failure with hypercapnia; J96.22 - Acute and chronic respiratory failure with hypercapnia Is this a current diagnosis for this admission?: Yes Plan: cont vent support and weaning trials, cont. nebulizers (3) Anemia Qualifiers: Anemia type: iron deficiency Iron deficiency anemia type: unspecified iron deficiency Qualified Code(s): D50.9 - Iron deficiency anemia, unspecified Is this a current diagnosis for this admission?: Yes (4) Hypokalemia Is this a current diagnosis for this admission?: Yes (5) Hypomagnesemia Is this a current diagnosis for this admission?: Yes (6) Septic shock Is this a current diagnosis for this admission?: Yes Plan: psuedomonas sensitive to levaquin and is responding - Time Time Spent with patient: 15-24 minutes Anticipated discharge: Home Within: Other - Inpatient Certification Medical Necessity: Failure to Improve With Outpatient Therapy, Significant Comorbidiites Make Outpatient Treatment Too Risky, Need For IV Fluids, Need for Nebulizer Therapy and Monitoring of Response 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
[2018-09-07] MEDS: MONTELUKAST SODIUM 10 MG TABLET NG SCH (22:08)
--- NOTE | 2018-09-07 22:39 | Progress Note ---
Provider Note Provider Note: CARDIOLOGY PROGRESS NOTES by Dr. Susan Ho on 09/07/2018. SUBJECTIVE: The patient has been extubated. She is in no acute respiratory distress. She denies any chest pain or discomfort there is no leg edema. There is no PND. The patient still has some degree of orthopnea. There is no ventricular arrhythmias seen on the monitor. The patient continues to be in atrial fibrillation with controlled ventricular response. There is no TIA or CVA symptoms. Selected Entries 09/07/18 09/07/18 11:25 12:52 Temperature 98.4 F Heart Rate ( 73 Monitors) Respiratory 21 H Rate Blood Pressure 126/49 H Blood Pressure 74 Mean O2 Sat by Pulse 94 Oximetry Fraction of 35 Inspired Oxygen (FIO2) Central Venous 13 Pressure- Mean Premature 1 Ventricular Counted Beats Ectopic Status SVPB Arrhythmia Sinu Rhythm Status HEAD: Is atraumatic normocephalic. EYES: Pupils are equal round reactive to light. ENT: Is negative. NECK: Is supple. There is no JVD. Carotids equal there is no bruit. LUNGS: Trachea central. Lungs show scattered rhonchi, but no wheezing. There are a few dry crackles in the right lung base there is no rales of CHF at present. HEART: S1-S2 is heard. S1 is of variable intensity. There is no S3 gallop there is no S4 gallop. There is systolic murmur left sternal border and the apex. There is no rub ABDOMEN: Bowel sounds well heard. There is no hepatosplenic megaly. EXTREMITIES: Femorals are diminished there is no femoral bruits leg pulses are diminished. There is no pedal edema. There is no DVT or cellulitis. There is no sinus or clubbing. 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 THE PATIENT IS ABLE TO FOLLOW COMMANDS. PSYCHIATRIC the patient does not appear to be agitated. 09/07/18 09/07/18 09/07/18 06:15 06:15 06:15 WBC 9.9 Hgb 9.3 L Hct 28.5 L Plt Count 326 Carbonic Acid 1.32 HCO3/H2CO3 Ratio 18:1 ABG pH 7.38 ABG pCO2 43.8 ABG pO2 63.8 L ABG HCO3 25.0 H ABG Total CO2 26.4 H ABG O2 Saturation 91.8 L ABG Base Excess -0.3 FiO2 25% Sodium 144.8 Potassium 3.8 Chloride 112 H Carbon Dioxide 26 Anion Gap 7 BUN 7 Creatinine 0.43 L Est GFR (Non-Af Amer) > 60 Glucose 85 Calcium 7.3 L Magnesium 1.8 Total Bilirubin 0.2 Direct Bilirubin 0.1 Neonat Total Bilirubin Not Reportable Neonat Direct Bilirubin Not Reportable Neonat Indirect Bili Not Reportable AST 8 L ALT 16 Alkaline Phosphatase 64 NT-Pro-B Natriuret Pep Total Protein 4.0 L Albumin 1.8 L 09/07/18 06:15 WBC Hgb Hct Plt Count Carbonic Acid HCO3/H2CO3 Ratio ABG pH ABG pCO2 ABG pO2 ABG HCO3 ABG Total CO2 ABG O2 Saturation ABG Base Excess FiO2 Sodium Potassium Chloride Carbon Dioxide Anion Gap BUN Creatinine Est GFR (Non-Af Amer) Glucose Calcium Magnesium Total Bilirubin Direct Bilirubin Neonat Total Bilirubin Neonat Direct Bilirubin Neonat Indirect Bili AST ALT Alkaline Phosphatase NT-Pro-B Natriuret Pep 837 Total Protein Albumin MPRESSION/RECOMMENDATION: Next 1. Acute on chronic hypoxic/hypercapnic respiratory failure.: Note that the patient's hypoxemia and hypercapnia resolved with current treatment. C. The patient much improved, and weaning trial is going to be done later today. Continue anti-COPD medication, and antibiotics. Note that the patient is now extubated 2. Septic shock: Secondary to urinary tract infection exacerbated by the patient's atrial flutter with rapid ventricular response, and the patient's hypercapnic hypoxemic respiratory failure. This is resolved. The patient is off pressors, and with a stable blood pressure. 3. SVT: This is due to atrial flutter with rapid ventricular response controlled: At present the patient's heart rate is better controlled. Note that the patient's Cardizem drip at 5 mg/h, and Sd-Synephrine were able to be discontinued. Note the patient has a history of proximal atrial fibrillation in the past. Would continue the patient's Eliquis at 2.5 mg via NG tube every 12 hours. The patient at home was on chronic anticoagulation therapy with Eliquis, and this is being restarted. The patient also has been started on beta -drew which is been increased to 50 mg p.o. every 12 hours in the form of metoprolol, and also the patient on Cardizem. Later would switch the patient to beta-drew alone, and stop the Cardizem which has been started. This is due to the fact that the patient has cardiomyopathy, and coronary artery disease. Note that the patient now is in atrial fibrillation, with a controlled ventricular response 4. Urinary tract infection with gram-negative rods: Sensitive to almost all antibiotics. At present continue antibiotics. 5. History of coronary artery disease, with no prior history of CT.: No definite evidence of CT this admission. 6. COPD: Continue anti-COPD treatment as being done now. 7. History of hypertension: At present blood pressure is low normal 8. Cardiomyopathy: At present seems to be compensated. No evidence of congestive heart failure by x-ray or clinically. 9. History of depression: Resume her antidepressants. 10. Possible developing pneumonia right lung base: Patient is on antibiotics, this will be continued. Her medications have been reviewed. Discussed the management plan with attending physician. 40 minutes spent on this patient with more than 50% of time spent in direct patient care. Medical decision making is now of moderate complexity. Will follow with you.
[2018-09-08] MEDS: DILTIAZEM HCL 60 MG TABLET NG SCH ×3 (06:00→21:24)
[2018-09-08 06:41] LABS: HEMATOCRIT 34.2 % (36.0-47.0); HEMOGLOBIN 10.7 g/dL (12.0-15.5); MEAN CORPUSCULAR HEMOGLOBIN 28.7 pg (27.0-33.4); MEAN CORPUSCULAR HGB CONC 31.2 g/dL (32.0-36.0); MEAN CORPUSCULAR VOLUME 92 fl (80-97); PLATELET COUNT 403 10^3/uL (150-450); RED BLOOD COUNT 3.72 10^6/uL (3.72-5.28); RED CELL DISTRIBUTION WIDTH 16.6 % (11.5-14.0)
[2018-09-08 06:59] LABS: ARTERIAL BLOOD BASE EXCESS -2.5 mmol/L; ARTERIAL BLOOD H2CO3 2.11 mmol/L (1.05-1.35); ARTERIAL BLOOD HCO3 26.7 mmol/L (20-24); ARTERIAL BLOOD O2 SATURATION 98.1 % (94-98); ARTERIAL BLOOD PO2 140.5 mmHg (80-100); ARTERIAL BLOOD TOTAL CO2 28.9 mmol/L (21-25)
[2018-09-08 07:06] LABS: ARTERIAL BLOOD PCO2 70.1 mmHg (35-45)
[2018-09-08 07:07] LABS: ARTERIAL BLOOD FIO2 35%
[2018-09-08 07:07] LABS: ANION GAP 6 (5-19); BLOOD UREA NITROGEN 9 mg/dL (7-20); CALCIUM 7.6 mg/dL (8.4-10.2); CARBON DIOXIDE 27 mmol/L (22-30); CHLORIDE 111 mmol/L (98-107); GLUCOSE 109 mg/dL (75-110); PHOSPHORUS 3.7 mg/dL (2.5-4.5); POTASSIUM 4.7 mmol/L (3.6-5.0)
[2018-09-08 07:29] LABS: ABSOLUTE LYMPHOCYTES# (MANUAL) 1.2 10^3/uL (0.5-4.7); ABSOLUTE MONOCYTES # (MANUAL) 0.3 10^3/uL (0.1-1.4); ABSOLUTE NEUTROPHILS# (MANUAL) 9.5 10^3/uL (1.7-8.2); BASOPHILS % (MANUAL) 0 % (0-2); EOSINOPHILS % (MANUAL) 0 % (0-6); LYMPHOCYTES % (MANUAL) 11 % (13-45); MONOCYTES % (MANUAL) 3 % (3-13); SEGMENTED NEUTROPHILS % (MAN) 86 % (42-78); TOTAL CELLS COUNTED 100
[2018-09-08 07:30] LABS: ANISOCYTOSIS 1+; PLATELET COMMENT ADEQUATE; POLYCHROMASIA 1+
--- NOTE | 2018-09-08 07:44 | RADIOLOGY REPORT (SQ) ---
EXAM DESCRIPTION: X-ray single view chest. CLINICAL HISTORY: 72 years Female, resp failure COMPARISON: Prior chest x-ray performed on 09/07/2018 and 09/06/2018 TECHNIQUE: Single portable view of the chest performed on 09/08/2018 at 7:04 AM FINDINGS: The lungs are well expanded. There is mild volume loss in the lung bases likely due to a combination of atelectasis and possibly minimal pleural fluid. There is no evidence of a pneumothorax. The cardiac silhouette is normal in size and configuration. The mediastinal contours are normal. No acute osseous abnormality is identified. No focal soft tissue abnormalities are seen. Lines and tubes: The right IJ central venous catheter is grossly stable. There has been interval removal of the endotracheal tube and feeding tube. There are overlying cardiac cath lab radiology technologist leads. IMPRESSION: 1. Increasing volume loss in the lung bases likely due to atelectasis and possibly minimal pleural fluid. 2. Interval removal of the endotracheal tube and feeding tube. 3. Stable right IJ central venous catheter.
[2018-09-08] MEDS ORDERED: SUCCINYLCHOLINE CHLORIDE INJ 200 MG/10 ML VIAL ONE (07:47)
[2018-09-08] MEDS: BUDESONIDE NEB 0.5 MG/2 ML AMPUL NEB SCH ×2 (08:04→19:49)
[2018-09-08] MEDS: LEVALBUTEROL HCL NEB 0.63 MG/3 ML AMPUL NEB PRN ×3 (08:04→19:49)
[2018-09-08] MEDS ORDERED: NORMAL SALINE 1000 ML 1,000 ML IV PRN (08:48)
[2018-09-08 09:43] LABS: ARTERIAL BLOOD BASE EXCESS -0.9 mmol/L; ARTERIAL BLOOD H2CO3 2.09 mmol/L (1.05-1.35); ARTERIAL BLOOD PH 7.22 (7.35-7.45); ARTERIAL BLOOD PO2 61.5 mmHg (80-100); ARTERIAL BLOOD TOTAL CO2 30.1 mmol/L (21-25)
[2018-09-08 09:44] LABS: ARTERIAL BLOOD FIO2 25%
[2018-09-08 09:45] LABS: ARTERIAL BLOOD PCO2 69.5 mmHg (35-45)
[2018-09-08] MEDS: TIOTROPIUM BROMIDE DPI 5 CAP/KIT (18 MCG/CAP) IH SCH (10:15)
[2018-09-08] MEDS: DOCUSATE SODIUM 100 MG/10 ML UDC NG SCH ×3 (10:15→17:09)
[2018-09-08] MEDS: TOLTERODINE TARTRATE 1 MG TABLET NG SCH (10:15)
[2018-09-08] MEDS: PANTOPRAZOLE SODIUM 40 MG VIAL IV SCH (10:24)
[2018-09-08] MEDS: LEVOFLOXACIN 750 MG/D5W RTU 750 MG/150 ML RTUPB IV SCH (10:24)
[2018-09-08] MEDS: DIGOXIN INJ 0.5 MG/2 ML AMPULE IV SCH (10:24)
[2018-09-08] MEDS: PROPOFOL 1,000 MG/100 ML INFUS..BTL IV PRN ×3 (11:45→22:19)
[2018-09-08] MEDS ORDERED: NORMAL SALINE 500 ML IV PRN (11:46)
[2018-09-08] MEDS ORDERED: PROPOFOL INJ 200 MG/20 ML VIAL IV ONE (11:48)
[2018-09-08] MEDS ORDERED: VANCOMYCIN HCL 0 MG in DEXTROSE 5%-WATER 250 ML IV NR (12:15)
--- NOTE | 2018-09-08 12:19 | RADIOLOGY REPORT (SQ) ---
EXAM DESCRIPTION: CHEST SINGLE VIEW COMPLETED DATE/TIME: 09/08/2018 11:59 am REASON FOR STUDY: ET TUBE PLACEMENT COMPARISON: 09/08/2018 at 0701 hours. EXAM PARAMETERS: NUMBER OF VIEWS: One view. TECHNIQUE: Single frontal radiographic view of the chest acquired. RADIATION DOSE: NA LIMITATIONS: None. FINDINGS: LUNGS AND PLEURA: And basilar densities with pleural effusions. MEDIASTINUM AND HILAR STRUCTURES: No masses. Contour normal. HEART AND VASCULAR STRUCTURES: Heart normal in size. Normal vasculature. BONES: No acute findings. HARDWARE: Endotracheal tube with tip located 2 cm proximal to the supa. Nasogastric tube with the tip in the stomach. Central line unchanged. Clips in the upper abdomen. OTHER: No other significant finding. IMPRESSION: INTERVAL ENDOTRACHEAL TUBE PLACEMENT AND NASOGASTRIC TUBE PLACEMENT WHICH APPEAR TO BE I N APPROPRIATE POSITION. OTHERWISE NO CHANGE. TECHNICAL DOCUMENTATION: JOB ID: [id number] [employer]- All Rights Reserved Reading location - IP/workstation name: [email or web address]
[2018-09-08 12:49] LABS: ARTERIAL BLOOD BASE EXCESS -3.1 mmol/L; ARTERIAL BLOOD H2CO3 1.34 mmol/L (1.05-1.35); ARTERIAL BLOOD HCO3 22.8 mmol/L (20-24); ARTERIAL BLOOD O2 SATURATION 89.2 % (94-98); ARTERIAL BLOOD PCO2 44.6 mmHg (35-45); ARTERIAL BLOOD PH 7.33 (7.35-7.45); ARTERIAL BLOOD PO2 60.1 mmHg (80-100); ARTERIAL BLOOD TOTAL CO2 24.2 mmol/L (21-25)
[2018-09-08 12:53] LABS: ARTERIAL BLOOD FIO2 24%
[2018-09-08] MEDS: PRAMIPEXOLE DI-HCL 0.25 MG TABLET NG SCH (13:30)
[2018-09-08] MEDS: ROFLUMILAST 500 MCG TABLET NG SCH (13:30)
[2018-09-08] MEDS: METOPROLOL TARTRATE 50 MG TABLET NG SCH ×2 (13:31→21:25)
[2018-09-08] MEDS: VANCOMYCIN HCL 750 MG in DEXTROSE 5%-WATER 250 ML IV SCH (13:32)
[2018-09-08] MEDS: CEFEPIME 2 GM/D5W RTU 2 GM/50 ML RTUPB IV SCH ×2 (13:32→21:26)
[2018-09-08] MEDS: APIXABAN 2.5 MG TABLET NG SCH ×2 (13:53→17:09)
[2018-09-08] MEDS ORDERED: BISACODYL 10 MG SUPP.RECT PR ONE (16:00)
[2018-09-08] MEDS: 1/2 NORMAL SALINE 1,000 ML IV PRN ×2 (16:33→23:42)
--- NOTE | 2018-09-08 17:56 | PROGRESS NOTE E ---
Progress Note NAME: SMITH IRAHETA : 1945 AGE: 72Y DATE: 09/08/2018 ROOM: 602 SUBJECTIVE: The patient is lying in bed. The patient was extubated yesterday. She is awake, alert. She is oriented to person, place, time and situation, a little sluggish. The patient does not voice any specific concerns at this time. She has been afebrile every night. Blood pressure has been in acceptable range. The patient's oxygen saturation has been well-maintained on BiPAP. Overnight, she was at 30% FiO2; however, this morning, appears to be acidotic, with a pH of 7.2, a pCO2 of 70, but her pO2 is 140; therefore, this is awaiting repeat. No other concerns are voiced at this time. ADDENDUM: Repeat ABG does not reveal improvement. Pulmonology recommended reintubation. Patient was hesitant to proceed initially, refusing. Bedside discussion was had with patient hesitantly agreed to being intubated one more time. Patient stated that if her heart was to stop she would not want to be resuscitated and was agreeable to DO NOT RESUSCITATE. I called and discussed this with the daughter. Patient became transiently hypotensive during intubation and CVP appeared to hover around 8. Half liter bolus given. Heart rate remained stable. REVIEW OF SYSTEMS: The rest of review of systems is negative. MEDICATION: Reviewed. OBJECTIVE: GENERAL: The patient is a 72-year-old female, who is awake, alert. She is oriented to person, place, time and situation. Does not appear to be in distress. VITAL SIGNS: Temperature is 97.3, pulse 80, respirations 15, blood pressure 139/52. Oxygen saturation is 99% on 25% FiO2. SKIN: Very pale, dry. No rash. She is not diaphoretic. HEENT: Pupils are reactive. Conjunctivae are pink. No evidence of JVP. CARDIOVASCULAR: Heart is regular without rub. CHEST: Diminished, symmetrical. Rhonchorous breaths sounds are noted in the left lung field. ABDOMEN: Soft, nontender. EXTREMITIES: No clubbing or cyanosis, with trace lower extremity edema. DIAGNOSTICS: Lab values are as follows: Hematology on 09/08/2018: WBC is 1.0, hemoglobin is 10.7, hematocrit is 34.2, platelet count is 403,000. Chemistry obtained on 09/08/2018: Sodium is 144, potassium 4.7, chloride is 111, carbon dioxide 27, BUN 9, creatinine is 0.44. Glucose 109, calcium 7.6. Phosphorus 3.7, magnesium is 1.9. ABG obtained on 09/08/2018: A pH of 7.2, pCO2 is 70, pO2 is 140, bicarb is 26.7. IMPRESSION AND PLAN: 1. ACUTE ON CHRONIC HYPOXEMIC HYPERCAPNIC RESPIRATORY FAILURE. The patient is status post extubation, day 1. The patient was transitioned to BiPAP, which she tolerated overnight; however, her ABG does not appear compensated this morning. The patient has been put back on the BiPAP with decreased FiO2 and awaiting repeat ABG at this time. Do appreciate Pulmonology's support with this. 2. SUPRAVENTRICULAR TACHYCARDIA. The patient is well-controlled with current Cardizem, Eliquis and Digoxin. 3. IRON DEFICIENCY ANEMIA. The patient's hemoglobin is stable at this point in time. 4. HYPOKALEMIA. This was repleted. 5. HYPOMAGNESEMIA. This has been repleted. 6. URINARY TRACT INFECTION WITH PSEUDOMONAS AND ESCHERICHIA COLI. At this point in time, the patient continues on Levaquin. 7. COMMUNITY ACQUIRED PNEUMONIA. Will continue Levaquin. The patient had a decent response. DISPOSITION: The patient is a FULL CODE. Pending patient's symptomatology and diagnostic findings as well as specialty input, will reevaluate in the a.m. Time spent on this followup, including assessment, plan, physical examination, patient education, review of records and specialty collaboration and critical care is 60 minutes. DICTATING PHYSICIAN: GALO PARK NP [id number] PHY#: [id number] ID: [id number] JOB#: [id number] ACCT: [id number] cc: > [facility]
--- NOTE | 2018-09-08 18:49 | Progress Note ---
Provider Note Provider Note: CARDIOLOGY PROGRESS NOTE FOR 09/08/2018. SUBJECTIVE: The patient amended respiratory distress and failed BiPAP, and had to be reintubated. The patient now seems to be in sinus rhythm. There is no ventricular arrhythmias seen on the monitor. The patient is not fighting the ventilator. There is no pedal edema. PHYSICAL EXAMINATION: The patient is well-built. She is well-groomed. She is not fighting the ventilator. 09/07/18 09/08/18 09/08/18 06:15 06:15 06:15 WBC 11.0 H Hgb 10.7 L Hct 34.2 L Plt Count 403 Carbonic Acid HCO3/H2CO3 Ratio ABG pH ABG pCO2 ABG pO2 ABG HCO3 ABG Total CO2 ABG O2 Saturation ABG Base Excess FiO2 Sodium 144.0 Potassium 4.7 Chloride 111 H Carbon Dioxide 27 Creatinine 0.44 L Est GFR (Non-Af Amer) > 60 Glucose 109 Calcium 7.6 L Phosphorus 3.7 Magnesium 1.9 NT-Pro-B Natriuret Pep 837 HEAD: Is atraumatic normocephalic. EYES: Pupils are equal round reactive to light. ENT: Is negative. NECK: Is supple. There is no JVD. Carotids equal there is no bruit. LUNGS: Trachea central. Lungs show scattered rhonchi, but no wheezing. There are a few dry crackle, and diminished air entry in the bases. There is no rales of CHF at present. HEART: S1-S2 is heard. S1 is of normal intensity. There is no S3 gallop there is no S4 gallop. There is systolic murmur left sternal border and the apex. There is no rub ABDOMEN: Bowel sounds well heard. There is no hepatosplenic megaly. EXTREMITIES: Femorals are diminished there is no femoral bruits leg pulses are diminished. There is no pedal edema. There is no DVT or cellulitis. There is no sinus or clubbing. 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 09/08/18 12:30 WBC Hgb Hct Plt Count Carbonic Acid 1.34 HCO3/H2CO3 Ratio 17:1 ABG pH 7.33 L ABG pCO2 44.6 ABG pO2 60.1 L ABG HCO3 22.8 ABG Total CO2 24.2 ABG O2 Saturation 89.2 L ABG Base Excess -3.1 FiO2 24% Sodium Potassium Chloride Carbon Dioxide Creatinine Est GFR (Non-Af Amer) Glucose Calcium Phosphorus Magnesium NT-Pro-B Natriuret Pep The patient EKG shows sinus rhythm. Premature atrial contraction. Nonspecific T abnormalities minor. The patient's chest x-ray shows volume loss in the bases secondary to infiltrate with small pleural effusions. MPRESSION/RECOMMENDATION: Next 1. Note the patient has recurrent respiratory failure, and was reintubated yesterday. Acute on chronic hypoxic/hypercapnic respiratory failure.: Note that the patient's hypoxemia and hypercapnia resolved with current treatment. C. The patient much improved, and weaning trial is going to be done later today. Continue anti-COPD medication, and antibiotics. Note that the patient is now extubated 2. Septic shock: Secondary to urinary tract infection. This is resolved the patient's blood pressure is stable without inotropic support. 3. SVT: Patient was in atrial flutter/fibrillation. At present the patient sinus rhythm. Continue beta-drew, and Eliquis. Would recommend trying to wean the patient off Cardizem. 4. Urinary tract infection with gram-negative rods: At present continue antibiotics. 5. History of coronary artery disease, with no prior history of AK.: No definite evidence of AK this admission. 6. Acute exacerbation of COPD: Continue anti-COPD treatment as being done now. 7. History of hypertension: At present blood pressure is normal. 8. Cardiomyopathy: At present seems to be compensated. No evidence of congestive heart failure by x-ray or clinically. Also a BNP is within normal limits. 9. Possible bibasilar developing pneumonias. History of depression: Continue antidepressants. Medications reviewed discussed the plan of care with the attending physician covering Dr. Bolden. Medical decision making cardiac felder is of moderate complexity. 40 minutes spent on this patient more than 50% of time spent in direct patient care. We will follow with you.
[2018-09-08] MEDS: MONTELUKAST SODIUM 10 MG TABLET NG SCH (21:25)
--- NOTE | 2018-09-08 22:03 | EKG REPORT ---
SEVERITY:- ABNORMAL ECG - SINUS RHYTHM ATRIAL PREMATURE COMPLEX NONSPECIFIC T ABNORMALITIES, LATERAL LEADS : Confirmed by: Susan Ho MD 08-Sep-2018 22:02:38
[2018-09-09] MEDS ORDERED: 1/2 NORMAL SALINE 500 ML IV ONE (00:30)
[2018-09-09] MEDS: VANCOMYCIN HCL 750 MG in DEXTROSE 5%-WATER 250 ML IV SCH ×2 (01:53→14:56)
[2018-09-09] MEDS: PROPOFOL 1,000 MG/100 ML INFUS..BTL IV PRN ×5 (02:51→23:18)
--- NOTE | 2018-09-09 07:04 | RADIOLOGY REPORT (SQ) ---
EXAM DESCRIPTION: X-ray single view chest. CLINICAL HISTORY: 72 years Female, resp failure COMPARISON: Portable chest x-rays performed on 09/08/2018 at 11:54 AM and 7:04 AM TECHNIQUE: Single portable view of the chest performed on 09/09/2018 at 6:38 AM FINDINGS: The lungs are well expanded. There is persistent mild volume loss in the lung bases which may be due to a combination of pleural fluid and atelectasis. No new parenchymal abnormalities are identified. There is no evidence of a pneumothorax. The cardiac silhouette is normal in size and configuration. The mediastinal contours are normal. No acute osseous abnormality is identified. No focal soft tissue abnormalities are seen. Lines and tubes: The right IJ central venous catheter, endotracheal tube and feeding tube are grossly stable. IMPRESSION: No significant change when compared to the most recent study. There is persistent volume loss in the lung bases likely due to a combination of pleural fluid and atelectasis. The life support lines and tubes are grossly stable.
[2018-09-09] MEDS: DILTIAZEM HCL 60 MG TABLET NG SCH ×3 (07:08→22:25)
[2018-09-09 07:20] LABS: ARTERIAL BLOOD BASE EXCESS 3.6 mmol/L; ARTERIAL BLOOD H2CO3 1.26 mmol/L (1.05-1.35); ARTERIAL BLOOD HCO3 28.1 mmol/L (20-24); ARTERIAL BLOOD O2 SATURATION 96.1 % (94-98); ARTERIAL BLOOD PH 7.44 (7.35-7.45); ARTERIAL BLOOD PO2 79.4 mmHg (80-100); ARTERIAL BLOOD TOTAL CO2 29.4 mmol/L (21-25)
[2018-09-09 07:21] LABS: ARTERIAL BLOOD FIO2 30%
[2018-09-09 07:35] LABS: HEMATOCRIT 31.8 % (36.0-47.0); HEMOGLOBIN 10.2 g/dL (12.0-15.5); MEAN CORPUSCULAR HEMOGLOBIN 28.4 pg (27.0-33.4); MEAN CORPUSCULAR VOLUME 89 fl (80-97); PLATELET COUNT 383 10^3/uL (150-450); RED BLOOD COUNT 3.58 10^6/uL (3.72-5.28); RED CELL DISTRIBUTION WIDTH 16.8 % (11.5-14.0)
[2018-09-09] MEDS: LEVALBUTEROL HCL NEB 0.63 MG/3 ML AMPUL NEB PRN (07:44)
[2018-09-09] MEDS: BUDESONIDE NEB 0.5 MG/2 ML AMPUL NEB SCH ×2 (07:44→20:27)
[2018-09-09 07:54] LABS: ANION GAP 6 (5-19); BLOOD UREA NITROGEN 13 mg/dL (7-20); CALCIUM 8.2 mg/dL (8.4-10.2); CARBON DIOXIDE 27 mmol/L (22-30); CHLORIDE 109 mmol/L (98-107); GLUCOSE 88 mg/dL (75-110); POTASSIUM 3.6 mmol/L (3.6-5.0); SODIUM 141.7 mmol/L (137-145); TRIGLYCERIDES 160 mg/dL (<150)
[2018-09-09 08:04] LABS: ABSOLUTE MONOCYTES # (MANUAL) 0.9 10^3/uL (0.1-1.4); ABSOLUTE NEUTROPHILS# (MANUAL) 9.1 10^3/uL (1.7-8.2); BAND NEUTROPHILS % (MANUAL) 2 % (3-5); BASOPHILS % (MANUAL) 0 % (0-2); EOSINOPHILS % (MANUAL) 0 % (0-6); LYMPHOCYTES % (MANUAL) 23 % (13-45); MONOCYTES % (MANUAL) 7 % (3-13); SEGMENTED NEUTROPHILS % (MAN) 68 % (42-78); TOTAL CELLS COUNTED 100
[2018-09-09 08:06] LABS: ANISOCYTOSIS 1+; OVALOCYTES 1+; PLATELET COMMENT ADEQUATE; POIKILOCYTOSIS 1+; TOXIC VACUOLATION PRESENT
[2018-09-09] MEDS: METOPROLOL TARTRATE 50 MG TABLET NG SCH ×2 (09:27→22:26)
[2018-09-09] MEDS: DIGOXIN INJ 0.5 MG/2 ML AMPULE IV SCH (09:28)
[2018-09-09] MEDS: PANTOPRAZOLE SODIUM 40 MG VIAL IV SCH (09:28)
[2018-09-09] MEDS: CEFEPIME 2 GM/D5W RTU 2 GM/50 ML RTUPB IV SCH ×2 (09:28→22:27)
[2018-09-09] MEDS: ROFLUMILAST 500 MCG TABLET NG SCH (09:29)
[2018-09-09] MEDS: PRAMIPEXOLE DI-HCL 0.25 MG TABLET NG SCH (09:29)
[2018-09-09] MEDS: 1/2 NORMAL SALINE 1,000 ML IV PRN (09:29)
[2018-09-09] MEDS: TIOTROPIUM BROMIDE DPI 5 CAP/KIT (18 MCG/CAP) IH SCH (09:29)
[2018-09-09] MEDS: APIXABAN 2.5 MG TABLET NG SCH ×2 (09:29→17:26)
[2018-09-09] MEDS: DOCUSATE SODIUM 100 MG/10 ML UDC NG SCH ×2 (09:29→17:26)
--- NOTE | 2018-09-09 16:36 | PROGRESS NOTE E ---
Progress Note NAME: SMITH IRAHETA : 1945 AGE: 72Y DATE: 09/09/2018 ROOM: 602 SUBJECTIVE: The patient is lying in bed. She is intubated today and is unable to provide any history. The patient's urine output has improved. In comparison, the patient's blood pressure has been in good range. Heart rate is in acceptable range as well. BRIEF HISTORY: Over the weekend, the patient was reintubated. The morning of 09/08/2018, the patient's ABG showed poor compensation and significant acidosis, with a pH of 7.2 and a pCO2 of 70. Repeat was consistent with this. The patient was alert and oriented and was quite hesitant for reintubation; however, risks and benefits were explained, and after the patient's daughter spoke with her mother, she elected to proceed with intubation, specifying "just one last time." Additionally, further conversation was had at the bedside, with multiple people in the room, that the patient would not want to be resuscitated, should something happen. The patient described herself as "tired of this." The patient went on to say that all she wanted was a piece of flounder and a sip of Pepsi. The patient has done well since being intubated. Is oxygenating much better on minimal oxygen. CO2 has corrected nicely. I do appreciate Pulmonology's help with this. REVIEW OF SYSTEMS: Review of systems cannot be obtained, given the patient's intubation and sedation. MEDICATIONS: Reviewed. OBJECTIVE: GENERAL: The patient is a 72-year-old female who is currently intubated, sedated and does not appear to be distressed. VITAL SIGNS: Temperature is 98.4, pulse 78, respirations 14, blood pressure 114/41, oxygen saturation is 96% on 30% FiO2. SKIN: Warm, dry. No rashes. She is not diaphoretic. HEENT: Pupils are reactive. Scleral edema present. ET tube in place, with Kvng. CVS: Heart is regular. No rub. Chest is clear, symmetrical, unlabored. ABDOMEN: Soft, nondistended. EXTREMITIES: No edema. All 4 extremities are warm to the touch. : The patient is draining light marielle urine. PSYCHIATRIC: Unable to assess. DIAGNOSTICS: Lab values are as follows: Hematology obtained on 09/09/2018: WBCs are 13.0, hemoglobin is 10.2, hematocrit is 31.8, platelet count of 383,000. ABG obtained 09/09/2018: The pH is 7.44, pCO2 is 42, pO2 is 79, bicarb 28.1. Chemistry obtained 09/09/2018: Sodium is 141, potassium 0.6, chloride is 109, carbon dioxide 27, BUN 13, creatinine is 0.44. Glucose 88, calcium is 8.2, magnesium is 1.8. Triglycerides are 160. Sputum culture obtained on 09/09/2018 is pending. Blood cultures taken on 09/03/2018 revealed no growth. Urine culture taken on 09/03/2018 revealed pseudomonas and Escherichia coli. IMPRESSION AND PLAN: 1. ACUTE ON CHRONIC HYPOXEMIC AND HYPERCAPNIC RESPIRATORY FAILURE. The patient was status post extubation for less than 1 day. The patient has been reintubated. This is day #1. The patient is maintaining oxygenation on minimal FiO2 and overall is much improved. Do appreciate Pulmonology's assistance with this. 2. SUPRAVENTRICULAR TACHYCARDIA. This was due to a rapid RVR. The patient is well-controlled currently. Do appreciate Cardiology input on this. 3. IRON DEFICIENCY ANEMIA. Hemoglobin overall appears stable. 4. HYPOKALEMIA. This has been repleted. 5. HYPOMAGNESEMIA. This has been repleted. 6. PSEUDOMONAS AND ESCHERICHIA COLI URINARY TRACT INFECTION. I am suspicious of polymicrobial findings; however, the patient is completely covered at this point with cefepime. 7. COMMUNITY-ACQUIRED PNEUMONIA. I have transitioned the patient over to cefepime and vancomycin, since she required reintubation and a bump in white count and worsening aeration on chest x-ray. This could be deescalated as needed. DISPOSITION: The patient is a DO NOT RESUSCITATE/DO NOT INTUBATE, as per the wishes that were expressed by the patient to numerous staff members. Pending patient's symptomatology and diagnostic findings, as well as specialty input, will reevaluate in the a.m. or as needed. Time spent on this critical care visit, including assessment, plan, physical examination, patient education, review of records and specialty collaboration, was 40 minutes. DICTATING PHYSICIAN: GALO PARK NP [id number] PHY#: [id number] ID: [id number] JOB#: [id number] ACCT: [id number] cc: >
--- NOTE | 2018-09-09 19:48 | Progress Note ---
Provider Note Provider Note: CARDIOLOGY PROGRESS NOTES by Dr. Susan Limon on 09/09/2018. SUBJECTIVE.: The patient is intubated and sedated. She is now in sinus rhythm with APCs. She is maintaining her good blood pressure without the need for pressors. There is no ventricular arrhythmias seen on the monitor. There is no pedal edema. The patient does not appear to be fighting the ventilator. PHYSICAL EXAMINATION: Patient is well-built. She is well-groomed. She is not fighting the ventilator. Selected Entries 09/09/18 09/09/18 16:00 16:53 Temperature 98.6 F Heart Rate ( 75 Monitors) Respiratory 14 Rate Blood Pressure 116/45 L Blood Pressure 68 Mean O2 Sat by Pulse 97 Oximetry Oxygen Delivery Mechanical Method ( Ventilator includes room air) Percent of 30 Oxygen HEAD: Is atraumatic normocephalic. EYES: Pupils are equal round reactive to light. ENT: Is negative. NECK: Is supple. There is no JVD. Carotids equal there is no bruit. LUNGS: Trachea central. Lungs show scattered rhonchi, but no wheezing. There are a few dry crackle, and diminished air entry in the bases. There is no rales of CHF at present. HEART: S1-S2 is heard. S1 is of normal intensity. There is no S3 gallop there is no S4 gallop. There is systolic murmur left sternal border and the apex. There is no rub ABDOMEN: Bowel sounds well heard. There is no hepatosplenic megaly. EXTREMITIES: Femorals are diminished there is no femoral bruits leg pulses are diminished. There is no pedal edema. There is no DVT or cellulitis. There is no sinus or clubbing. 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 09/09/18 09/09/18 09/09/18 07:05 07:05 07:05 WBC 13.0 H Hgb 10.2 L Hct 31.8 L Plt Count 383 Carbonic Acid 1.26 HCO3/H2CO3 Ratio 22:1 ABG pH 7.44 ABG pCO2 42.0 ABG pO2 79.4 L ABG HCO3 28.1 H ABG Total CO2 29.4 H ABG O2 Saturation 96.1 ABG Base Excess 3.6 FiO2 30% Sodium 141.7 Potassium 3.6 Chloride 109 H Carbon Dioxide 27 BUN 13 Creatinine 0.44 L Est GFR (Non-Af Amer) > 60 Glucose 88 Calcium 8.2 L Magnesium 1.8 Triglycerides 160 H CHEST X-ray: Shows bibasilar volume loss most likely secondary to infiltrate with pleural effusion. These are small areas. MPRESSION/RECOMMENDATION: Next 1. Note the patient has recurrent respiratory failure, and was reintubated yesterday. Acute on chronic hypoxic/hypercapnic respiratory failure.: Note that the patient's hypoxemia and hypercapnia resolved with current treatment. C. The patient much improved, and weaning trial is going to be done later today. Continue anti-COPD medication, and antibiotics. Note that the patient is now extubated 2. Septic shock: Secondary to urinary tract infection. This is resolved the patient's blood pressure is stable without inotropic support. 3. SVT: Patient was in atrial flutter/fibrillation. At present the patient sinus rhythm. Continue beta-drew, and Eliquis. Would recommend trying to wean the patient off Cardizem. 4. Urinary tract infection with gram-negative rods: Sensitive to almost all antibiotics. At present continue antibiotics. 5. History of coronary artery disease, with no prior history of WA.: No definite evidence of WA this admission. 6. COPD: Continue anti-COPD treatment as being done now. 7. History of hypertension: At present blood pressure is low normal 8. Cardiomyopathy: At present seems to be compensated. No evidence of congestive heart failure by x-ray or clinically. 9. History of depression: Resume her antidepressants Her medications have been reviewed. Discussed case with attending physician on covering Dr. Bolden this weekend. Medical decision making is of moderate complexity., Since the patient now is in sinus rhythm. 40 minutes spent on this patient more than 50% time spent in direct patient care.. Note there is still a little confusion about the patient's CODE STATUS. This is being handled by the covering attending physician, will discuss with Dr. Bolden tomorrow. Dr. Troncoso will follow the patient tomorrow.
[2018-09-09] MEDS: MONTELUKAST SODIUM 10 MG TABLET NG SCH (22:27)
[2018-09-10] MEDS: 1/2 NORMAL SALINE 1,000 ML IV PRN ×2 (01:16→15:41)
[2018-09-10] MEDS: VANCOMYCIN HCL 750 MG in DEXTROSE 5%-WATER 250 ML IV SCH ×2 (02:38→14:02)
[2018-09-10] MEDS: PROPOFOL 1,000 MG/100 ML INFUS..BTL IV PRN ×3 (03:40→23:58)
[2018-09-10 05:13] LABS: ARTERIAL BLOOD BASE EXCESS 3.5 mmol/L; ARTERIAL BLOOD H2CO3 1.29 mmol/L (1.05-1.35); ARTERIAL BLOOD HCO3 28.1 mmol/L (20-24); ARTERIAL BLOOD O2 SATURATION 95.8 % (94-98); ARTERIAL BLOOD PCO2 42.8 mmHg (35-45); ARTERIAL BLOOD PH 7.44 (7.35-7.45); ARTERIAL BLOOD PO2 77.4 mmHg (80-100); ARTERIAL BLOOD TOTAL CO2 29.4 mmol/L (21-25)
[2018-09-10 05:15] LABS: ARTERIAL BLOOD FIO2 30%
[2018-09-10 05:22] LABS: HEMATOCRIT 29.8 % (36.0-47.0); HEMOGLOBIN 9.8 g/dL (12.0-15.5); MEAN CORPUSCULAR HEMOGLOBIN 28.9 pg (27.0-33.4); MEAN CORPUSCULAR HGB CONC 32.8 g/dL (32.0-36.0); MEAN CORPUSCULAR VOLUME 88 fl (80-97); PLATELET COUNT 352 10^3/uL (150-450); RED BLOOD COUNT 3.39 10^6/uL (3.72-5.28); WHITE BLOOD COUNT 11.6 10^3/uL (4.0-10.5)
[2018-09-10 05:26] LABS: ALANINE AMINOTRANSFERASE 15 U/L (9-52); ALBUMIN 1.9 g/dL (3.5-5.0); ALKALINE PHOSPHATASE 62 U/L (38-126); ANION GAP 5 (5-19); ASPARTATE AMINO TRANSFERASE 8 U/L (14-36); BILIRUBIN,DIRECT 0.1 mg/dL (0.0-0.4); BILIRUBIN,TOTAL 0.2 mg/dL (0.2-1.3); BLOOD UREA NITROGEN 10 mg/dL (7-20); CALCIUM 8.4 mg/dL (8.4-10.2); CARBON DIOXIDE 29 mmol/L (22-30); CHLORIDE 109 mmol/L (98-107); GLUCOSE 132 mg/dL (75-110); POTASSIUM 3.5 mmol/L (3.6-5.0); SODIUM 143.2 mmol/L (137-145); TOTAL PROTEIN 4.2 g/dL (6.3-8.2)
[2018-09-10] MEDS: DILTIAZEM HCL 60 MG TABLET NG SCH (05:34)
[2018-09-10 06:25] LABS: ABSOLUTE LYMPHOCYTES# (MANUAL) 2.6 10^3/uL (0.5-4.7); ABSOLUTE MONOCYTES # (MANUAL) 0.3 10^3/uL (0.1-1.4); ABSOLUTE NEUTROPHILS# (MANUAL) 8.2 10^3/uL (1.7-8.2); BAND NEUTROPHILS % (MANUAL) 4 % (3-5); BASOPHILS % (MANUAL) 0 % (0-2); EOSINOPHILS % (MANUAL) 4 % (0-6); LYMPHOCYTES % (MANUAL) 22 % (13-45); MONOCYTES % (MANUAL) 3 % (3-13); SEGMENTED NEUTROPHILS % (MAN) 67 % (42-78); TOTAL CELLS COUNTED 100
[2018-09-10 06:26] LABS: TOXIC GRANULATION 1+; TOXIC VACUOLATION PRESENT
[2018-09-10 06:27] LABS: ANISOCYTOSIS 1+; BURR CELLS SLIGHT; OVALOCYTES SLIGHT; PLATELET COMMENT ADEQUATE; POIKILOCYTOSIS SLIGHT
--- NOTE | 2018-09-10 06:34 | RADIOLOGY REPORT (SQ) ---
EXAM DESCRIPTION: X-ray single view chest. CLINICAL HISTORY: 72 years Female, resp failure COMPARISON: Portable chest performed on 09/09/2018 at 09/08/2018 TECHNIQUE: Single portable view of the chest performed on 09/10/2018 at 6:13 AM FINDINGS: The lungs are well expanded. There is persistent volume loss in the right lung base and there is persistent blunting of the left lateral costophrenic sulcus. No definite new focal parenchymal abnormalities are identified. There is no evidence of a pneumothorax. The cardiac silhouette is normal in size and configuration. The mediastinal contours are normal. No acute osseous abnormality is identified. No focal soft tissue abnormalities are seen. Lines and tubes: The right IJ central venous catheter terminates in the region of the cavoatrial junction. The endotracheal tube extends below the thoracic inlet and above the supa. The feeding tube extends below the diaphragm and the tip is not visualized on this examination. IMPRESSION: 1. No significant change when compared to the prior studies. 2. Persistent volume loss in the right lung base and blunting of the left lateral costophrenic sulcus. 3. Grossly stable life support lines and tubes.
[2018-09-10] MEDS: BUDESONIDE NEB 0.5 MG/2 ML AMPUL NEB SCH ×2 (07:51→19:45)
[2018-09-10] MEDS ORDERED: ONDANSETRON 4 MG TAB.RAPDIS NG PRN (09:30)
[2018-09-10] MEDS: PANTOPRAZOLE SODIUM 40 MG VIAL IV SCH (09:39)
[2018-09-10] MEDS: DIGOXIN INJ 0.5 MG/2 ML AMPULE IV SCH (09:40)
[2018-09-10] MEDS: PRAMIPEXOLE DI-HCL 0.25 MG TABLET NG SCH (09:41)
[2018-09-10] MEDS: METOPROLOL TARTRATE 50 MG TABLET NG SCH ×2 (09:41→21:25)
[2018-09-10] MEDS: ROFLUMILAST 500 MCG TABLET NG SCH (09:41)
[2018-09-10] MEDS: APIXABAN 2.5 MG TABLET NG SCH ×2 (09:41→17:41)
[2018-09-10] MEDS: POTASSI CL 20 MEQ/50 ML RIDER 20 MEQ/50 ML RTUPB IV SCH ×2 (09:42→12:13)
--- NOTE | 2018-09-10 12:01 | PDOC PROGRESS REPORT ---
Subjective Progress Note for:: 09/10/18 Subjective:: And subsequently was reintubated over the weekend she is off these to prevent she is awake on the ventilator comfortable. Discussion was had with her multiple times in the presence of witnesses (Dr. Roberto Carlos Brewer pulmonary, nursing, nurses A). Patient still wants reintubation if required after potential extubation understands the consequences. She is afebrile nursing states minimal frothy sputum she is tolerating the oral gastric. Measured CVP pressure is 8, she is on an FiO2 of 30 PEEP of 5 pressure support of 12 at a rate of 14. Reason For Visit: SVT Physical Exam Vital Signs: Temp Pulse Resp BP Pulse Ox 98.4 F 69 15 142/52 H 96 09/10/18 10:00 09/10/18 08:00 09/10/18 10:00 09/10/18 09:53 09/10/18 10:00 Intake & Output 09/09/18 09/10/18 09/11/18 06:59 06:59 06:59 Intake Total 2636 Output Total 3970 610 Balance -1334 -610 Weight 72.6 kg General appearance: PRESENT: other - She is intubated partially sedated Head exam: PRESENT: atraumatic, normocephalic Eye exam: PRESENT: conjunctiva pink, EOMI, PERRLA. ABSENT: scleral icterus Ear exam: PRESENT: normal external ear exam Mouth exam: PRESENT: moist, tongue midline Throat exam: PRESENT: other - ET tube present unable to evaluate Neck exam: PRESENT: full ROM. ABSENT: carotid bruit, JVD, lymphadenopathy, thyromegaly Respiratory exam: PRESENT: clear to auscultation jaime, rhonchi Cardiovascular exam: PRESENT: RRR, systolic murmur. ABSENT: diastolic murmur, rubs Murmur grade: 2 Pulses: PRESENT: normal dorsalis pedis pul, +2 pedal pulses bilateral Vascular exam: PRESENT: normal capillary refill GI/Abdominal exam: PRESENT: normal bowel sounds, soft. ABSENT: distended, guarding, mass, organolmegaly, rebound, tenderness Rectal exam: PRESENT: deferred Extremities exam: PRESENT: pedal edema Musculoskeletal exam: PRESENT: other - She is on a ventilator on sedation Results Laboratory Results: 09/10/18 04:45 09/10/18 04:45 11/03/2309/10/18 09/10/18 04:45 04:45 04:57 WBC 11.6 H RBC 3.39 L Hgb 9.8 L Hct 29.8 L MCV 88 MCH 28.9 MCHC 32.8 RDW 17.0 H Plt Count 352 Seg Neutrophils % Not Reportable Lymphocytes % Not Reportable Monocytes % Not Reportable Eosinophils % Not Reportable Basophils % Not Reportable Absolute Neutrophils Not Reportable Absolute Lymphocytes Not Reportable Absolute Monocytes Not Reportable Absolute Eosinophils Not Reportable Absolute Basophils Not Reportable Carbonic Acid 1.29 HCO3/H2CO3 Ratio 21:1 ABG pH 7.44 ABG pCO2 42.8 ABG pO2 77.4 L ABG HCO3 28.1 H ABG O2 Saturation 95.8 ABG Base Excess 3.5 FiO2 30% Sodium 143.2 Potassium 3.5 L Chloride 109 H Carbon Dioxide 29 Anion Gap 5 BUN 10 Creatinine 0.41 L Est GFR ( Amer) > 60 Est GFR (Non-Af Amer) > 60 Glucose 132 H Calcium 8.4 Magnesium 1.9 Total Bilirubin 0.2 AST 8 L ALT 15 Alkaline Phosphatase 62 Total Protein 4.2 L Albumin 1.9 L 09/03/18 09/03/18 09/03/18 17:10 23:40 23:40 Creatine Kinase < 20 L CK-MB (CK-2) 1.41 1.40 Troponin I 0.036 0.033 NT-Pro-B Natriuret Pep 09/04/18 09/04/18 09/04/18 05:50 05:50 12:10 Creatine Kinase < 20 L Cancelled CK-MB (CK-2) 0.98 Troponin I 0.026 NT-Pro-B Natriuret Pep 09/04/18 09/04/18 09/04/18 12:10 18:03 18:03 Creatine Kinase < 20 L CK-MB (CK-2) 0.37 < 0.22 Troponin I 0.021 0.033 NT-Pro-B Natriuret Pep 09/04/18 09/04/18 09/07/18 23:40 23:40 06:15 Creatine Kinase < 20 L CK-MB (CK-2) 0.23 Troponin I 0.029 NT-Pro-B Natriuret Pep 837 Impressions: Chest X-Ray 09/10/18 06:00 IMPRESSION: 1. No significant change when compared to the prior studies. 2. Persistent volume loss in the right lung base and blunting of the left lateral costophrenic sulcus. 3. Grossly stable life support lines and tubes. Assessment & Plan - Diagnosis (1) Supraventricular tachycardia Is this a current diagnosis for this admission?: Yes Plan: New the Cardizem and the digoxin will monitor (2) Acute and chronic respiratory failure ([id number]) Qualifiers: Respiratory failure complication: hypoxia and hypercapnia Qualified Code(s) : J96.21 - Acute and chronic respiratory failure with hypoxia; J96.22 - Acute and chronic respiratory failure with hypercapnia; J96.22 - Acute and chronic respiratory failure with hypercapnia; J96.22 - Acute and chronic respiratory failure with hypercapnia Is this a current diagnosis for this admission?: Yes Plan: Hermann with Dr. Osman jaime she does not look fluid overload and there is no evidence to suggest superimposed pulmonary infection would suggest increasing PEEP to may be open the atelectatic basis he will add Mucomyst and chest physiotherapy. Tinea beta-2 agonist and ventilatory support. (3) Anemia Qualifiers: Anemia type: iron deficiency Iron deficiency anemia type: unspecified iron deficiency Qualified Code(s): D50.9 - Iron deficiency anemia, unspecified Is this a current diagnosis for this admission?: Yes Plan: His hemoglobin is over 9.5 we will monitor presently. (4) Hypokalemia Is this a current diagnosis for this admission?: Yes Plan: Potassium riders 40 M EQ's presently and will monitor daily BMP 7. (5) Hypomagnesemia Is this a current diagnosis for this admission?: Yes (6) Septic shock Is this a current diagnosis for this admission?: Yes Plan: She has no longer requiring pressors she does have a urine infection with 2 gram -negative rods being treated appropriately per his activities.
[2018-09-10] MEDS: ACETYLCYSTEINE 20% SOLN 800 MG/4 ML VIAL.NEB NEB SCH ×2 (12:24→19:45)
[2018-09-10] MEDS: DILTIAZEM HCL 30 MG TABLET NG SCH ×2 (14:02→21:24)
[2018-09-10] MEDS: CEFEPIME 2 GM/D5W RTU 2 GM/50 ML RTUPB IV SCH ×2 (14:12→21:24)
[2018-09-10] MEDS: DOCUSATE SODIUM 100 MG/10 ML UDC NG SCH ×2 (14:19→17:41)
[2018-09-10] MEDS: TIOTROPIUM BROMIDE DPI 5 CAP/KIT (18 MCG/CAP) IH SCH (14:19)
[2018-09-10 15:08] LABS: VANCOMYCIN,TROUGH 13.9 ug/mL (5.0-20.0)
[2018-09-10] MEDS: LEVALBUTEROL HCL NEB 0.63 MG/3 ML AMPUL NEB PRN (19:45)
--- NOTE | 2018-09-10 19:52 | PDOC PROGRESS REPORT ---
Subjective Progress Note for:: 09/10/18 Subjective:: Patient about the same and has made very little progress. There is no significant change in general condition. Patient remains intubated, sedated, patient however looks comfortable and in acute distress. Patient is maintaining sinus rhythm. No recurrence of SVT noted. Medications reviewed. Reason For Visit: SVT Physical Exam Vital Signs: Temp Pulse Resp BP Pulse Ox 99.7 F 89 14 136/56 H 98 09/10/18 19:31 09/10/18 19:45 09/10/18 19:45 09/10/18 17:53 09/10/18 19:45 Intake & Output 09/09/18 09/10/18 09/11/18 06:59 06:59 06:59 Intake Total 2936 1160 Output Total 3970 2285 Balance -1034 -1125 Weight 72.6 kg Exam: GENERAL: well-nourished and in no acute distress. Patient is intubated and sedated. Orientation cannot be checked HEAD: Atraumatic, normocephalic. EYES: Pupils equal round and reactive to light, extraocular movements could not be checked, sclera anicteric, conjunctiva are normal. ENT: TMs normal, nares patent, oropharynx clear without exudates. Moist mucous membranes. No oral ulcerations or bleeding gums noted NECK: supple without lymphadenopathy or JVD. Trachea is central. No cervical or axillary lymphadenopathy noted. Carotids are 2+ LUNGS: Breath sounds mostly clear to auscultation patient is noted to have bibasal crackles at the extreme bases CHEST: Palpation of the chest wall shows no significant chest wall tenderness or abnormalities. HEART: Burns [employer]PH[employer]ER, No PSH, 2/6 JARAD aortic area, 1/6 valentine systolic murmur mitral area , no rubs or gallops. ABDOMEN: Soft, no significant tenderness appreciated, normoactive bowel sounds. No guarding, no rebound. No rigidity noted . No masses appreciated. EXTREMITIES: Pedal pulses are 1-2+, no calf tenderness noted, 1+ pedal edema noted. No clubbing or cyanosis. NEUROLOGICAL: The patient cannot participate in the neurological exam but no facial asymmetry noted. Extremities slightly hypotonic PSYCH: This cannot be evaluated. Patient cannot participate. SKIN: No significant ecchymosis, rash, or signs of pruritus noted. MUSCULOSKELETAL EXAM: No significant joint swelling noted. Patient cannot participate in musculoskeletal exam Results Laboratory Results: 09/10/18 04:45 09/10/18 04:45 09/10/18 09/10/18 09/10/18 04:45 04:45 04:57 WBC 11.6 H RBC 3.39 L Hgb 9.8 L Hct 29.8 L MCV 88 MCH 28.9 MCHC 32.8 RDW 17.0 H Plt Count 352 Seg Neutrophils % Not Reportable Lymphocytes % Not Reportable Monocytes % Not Reportable Eosinophils % Not Reportable Basophils % Not Reportable Absolute Neutrophils Not Reportable Absolute Lymphocytes Not Reportable Absolute Monocytes Not Reportable Absolute Eosinophils Not Reportable Absolute Basophils Not Reportable Carbonic Acid 1.29 HCO3/H2CO3 Ratio 21:1 ABG pH 7.44 ABG pCO2 42.8 ABG pO2 77.4 L ABG HCO3 28.1 H ABG O2 Saturation 95.8 ABG Base Excess 3.5 FiO2 30% Sodium 143.2 Potassium 3.5 L Chloride 109 H Carbon Dioxide 29 Anion Gap 5 BUN 10 Creatinine 0.41 L Est GFR ( Amer) > 60 Est GFR (Non-Af Amer) > 60 Glucose 132 H Calcium 8.4 Magnesium 1.9 Total Bilirubin 0.2 AST 8 L ALT 15 Alkaline Phosphatase 62 Total Protein 4.2 L Albumin 1.9 L 09/03/18 09/03/18 09/03/18 17:10 23:40 23:40 Creatine Kinase < 20 L CK-MB (CK-2) 1.41 1.40 Troponin I 0.036 0.033 NT-Pro-B Natriuret Pep 09/04/18 09/04/18 09/04/18 05:50 05:50 12:10 Creatine Kinase < 20 L Cancelled CK-MB (CK-2) 0.98 Troponin I 0.026 NT-Pro-B Natriuret Pep 09/04/18 09/04/18 09/04/18 12:10 18:03 18:03 Creatine Kinase < 20 L CK-MB (CK-2) 0.37 < 0.22 Troponin I 0.021 0.033 NT-Pro-B Natriuret Pep 09/04/18 09/04/18 09/07/18 23:40 23:40 06:15 Creatine Kinase < 20 L CK-MB (CK-2) 0.23 Troponin I 0.029 NT-Pro-B Natriuret Pep 837 Impressions: Chest X-Ray 09/10/18 06:00 IMPRESSION: 1. No significant change when compared to the prior studies. 2. Persistent volume loss in the right lung base and blunting of the left lateral costophrenic sulcus. 3. Grossly stable life support lines and tubes. Assessment & Plan - Diagnosis (1) Supraventricular tachycardia Is this a current diagnosis for this admission?: Yes (2) Acute and chronic respiratory failure ([id number]) Qualifiers: Respiratory failure complication: hypoxia and hypercapnia Qualified Code(s) : J96.21 - Acute and chronic respiratory failure with hypoxia; J96.22 - Acute and chronic respiratory failure with hypercapnia; J96.22 - Acute and chronic respiratory failure with hypercapnia; J96.22 - Acute and chronic respiratory failure with hypercapnia Is this a current diagnosis for this admission?: Yes (3) COPD (chronic obstructive pulmonary disease) Qualifiers: COPD type: unspecified COPD Qualified Code(s): J44.9 - Chronic obstructive pulmonary disease, unspecified Is this a current diagnosis for this admission?: Yes (4) Atrial flutter with rapid ventricular response Is this a current diagnosis for this admission?: Yes (5) Debility, unspecified Is this a current diagnosis for this admission?: Yes (6) Hypertension Qualifiers: Hypertension type: essential hypertension Qualified Code(s): I10 - Essential (primary) hypertension Is this a current diagnosis for this admission?: Yes - Notes Notes: Continue current supportive care. Continue current medications for heart rate control. Will continue to follow with you. Supraventricular tachycardia: In retrospect felt to be atrial flutter with 2-1 conduction. Currently being well managed with Cardizem. No recurrence noted. Continue to monitor very closely. May consider multaq therapy if there is recurrence. Acute on chronic respiratory failure: Patient is intubated and sedated. Pulmonary following. COPD: Patient noted to have severe COPD. Patient was smoking until recently. Currently being well managed by hospitalist and also cashier associate. Atrial flutter with rapid ventricular response: Patient also has a history of atrial fibrillation. Recommend chronic anticoagulation if no contraindications. General debility: This is a complicating factor with reduced capabilities to fight infection. Continue good nutritional plan. Hypertension: Patient blood pressure has been low. Patient is recovering from sepsis. - Time Time with patient: Greater than 35 minutes - More than 50% of the time spent coordinating care, discussing management plans with involved caregivers. Management plans discussed with involved personnels. Medical decision making was of moderate to high complexity, patient's has multiple comorbidities. CODE STATUS was discussed, patient remains full code. Surrogate decision-maker patient's daughter. Multiple medical problems were addressed. Medications reviewed and adjusted accordingly: Yes
[2018-09-10] MEDS: FENTANYL CITRATE INJ/PF 100 MCG/2 ML AMPUL IV PRN (20:12)
[2018-09-10] MEDS: MONTELUKAST SODIUM 10 MG TABLET NG SCH (21:24)
[2018-09-11] MEDS: VANCOMYCIN HCL 1,000 MG in DEXTROSE 5%-WATER 250 ML IV SCH ×2 (01:58→14:27)
[2018-09-11] MEDS: PROPOFOL 1,000 MG/100 ML INFUS..BTL IV PRN ×2 (04:01→23:46)
[2018-09-11] MEDS: 1/2 NORMAL SALINE 1,000 ML IV PRN (04:02)
[2018-09-11 05:35] LABS: ARTERIAL BLOOD BASE EXCESS 3.9 mmol/L; ARTERIAL BLOOD H2CO3 1.32 mmol/L (1.05-1.35); ARTERIAL BLOOD HCO3 28.6 mmol/L (20-24); ARTERIAL BLOOD O2 SATURATION 97.1 % (94-98); ARTERIAL BLOOD PCO2 43.8 mmHg (35-45); ARTERIAL BLOOD PH 7.43 (7.35-7.45); ARTERIAL BLOOD PO2 89.9 mmHg (80-100)
[2018-09-11 05:36] LABS: HEMATOCRIT 30.8 % (36.0-47.0); HEMOGLOBIN 10.1 g/dL (12.0-15.5); MEAN CORPUSCULAR HEMOGLOBIN 28.6 pg (27.0-33.4); MEAN CORPUSCULAR HGB CONC 32.7 g/dL (32.0-36.0); MEAN CORPUSCULAR VOLUME 88 fl (80-97); PLATELET COUNT 353 10^3/uL (150-450); RED BLOOD COUNT 3.51 10^6/uL (3.72-5.28); RED CELL DISTRIBUTION WIDTH 17.1 % (11.5-14.0); WHITE BLOOD COUNT 13.8 10^3/uL (4.0-10.5)
[2018-09-11 05:37] LABS: ARTERIAL BLOOD FIO2 30%
[2018-09-11 05:54] LABS: BLOOD UREA NITROGEN 9 mg/dL (7-20); CALCIUM 8.5 mg/dL (8.4-10.2); GLUCOSE 111 mg/dL (75-110); PHOSPHORUS 2.7 mg/dL (2.5-4.5); POTASSIUM 3.5 mmol/L (3.6-5.0)
[2018-09-11 05:59] LABS: CARBON DIOXIDE 34 mmol/L (22-30); CHLORIDE 106 mmol/L (98-107); SODIUM 142.8 mmol/L (137-145)
[2018-09-11] MEDS: DILTIAZEM HCL 30 MG TABLET NG SCH ×3 (06:05→21:49)
[2018-09-11 06:06] LABS: ANION GAP 3 (5-19)
--- NOTE | 2018-09-11 06:19 | RADIOLOGY REPORT (SQ) ---
EXAM DESCRIPTION: XR CHEST 1 VIEW COMPLETED DATE/TME: 09/11/2018 06:00 CLINICAL HISTORY: 72 years Female, resp failure COMPARISON: One day prior. NUMBER OF VIEWS/TECHNIQUE: 1/AP FINDINGS: Moderate right basilar opacity-effusion, mildly enlarged cardiac silhouette, adequate appearing endotracheal tube, right jugular central line tip at the mid right atrium. No pneumothorax. Stable bony thorax. IMPRESSION: No significant change.
[2018-09-11 06:27] LABS: ABSOLUTE LYMPHOCYTES# (MANUAL) 2.8 10^3/uL (0.5-4.7); ABSOLUTE MONOCYTES # (MANUAL) 1.1 10^3/uL (0.1-1.4); ABSOLUTE NEUTROPHILS# (MANUAL) 9.9 10^3/uL (1.7-8.2); BASOPHILS % (MANUAL) 0 % (0-2); EOSINOPHILS % (MANUAL) 0 % (0-6); LYMPHOCYTES % (MANUAL) 20 % (13-45); MONOCYTES % (MANUAL) 8 % (3-13); SEGMENTED NEUTROPHILS % (MAN) 72 % (42-78); TOTAL CELLS COUNTED 100
[2018-09-11 06:29] LABS: ANISOCYTOSIS 1+; BURR CELLS SLIGHT; OVALOCYTES SLIGHT; POIKILOCYTOSIS SLIGHT
[2018-09-11 06:30] LABS: PLATELET COMMENT ADEQUATE
[2018-09-11] MEDS: BUDESONIDE NEB 0.5 MG/2 ML AMPUL NEB SCH ×2 (08:03→19:58)
[2018-09-11] MEDS: ACETYLCYSTEINE 20% SOLN 800 MG/4 ML VIAL.NEB NEB SCH ×2 (09:04→19:58)
[2018-09-11] MEDS: LEVALBUTEROL HCL NEB 0.63 MG/3 ML AMPUL NEB PRN ×2 (09:05→19:58)
[2018-09-11] MEDS: CEFEPIME 2 GM/D5W RTU 2 GM/50 ML RTUPB IV SCH ×2 (09:15→21:48)
[2018-09-11] MEDS: PANTOPRAZOLE SODIUM 40 MG VIAL IV SCH (09:18)
[2018-09-11] MEDS: METOPROLOL TARTRATE 50 MG TABLET NG SCH ×2 (09:19→21:49)
[2018-09-11] MEDS: APIXABAN 2.5 MG TABLET NG SCH ×2 (09:19→17:52)
[2018-09-11] MEDS: ROFLUMILAST 500 MCG TABLET NG SCH (09:20)
[2018-09-11] MEDS: DIGOXIN INJ 0.5 MG/2 ML AMPULE IV SCH (09:20)
[2018-09-11] MEDS: POTASSI CL 20 MEQ/50 ML RIDER 20 MEQ/50 ML RTUPB IV SCH ×3 (09:22→13:36)
[2018-09-11] MEDS: TIOTROPIUM BROMIDE DPI 5 CAP/KIT (18 MCG/CAP) IH SCH (10:39)
[2018-09-11] MEDS: DOCUSATE SODIUM 100 MG/10 ML UDC NG SCH ×2 (10:40→17:52)
[2018-09-11] MEDS: PRAMIPEXOLE DI-HCL 0.25 MG TABLET NG SCH (11:13)
--- NOTE | 2018-09-11 14:03 | PDOC PROGRESS REPORT ---
Subjective Progress Note for:: 09/11/18 Subjective:: Patient is on ventilator and afebrile, tolerating feeding attempt at wean she tired in evening. Her CVP 11. Reason For Visit: SVT Physical Exam Vital Signs: Temp Pulse Resp BP Pulse Ox 100.0 F 83 17 134/59 H 92 09/11/18 12:00 09/11/18 12:00 09/11/18 12:00 09/11/18 12:00 09/11/18 12:44 Intake & Output 09/10/18 09/11/18 09/12/18 06:59 06:59 06:59 Intake Total 2936 3171 97 Output Total 3970 3635 1275 Balance -7201 -673 -9195 Weight 72.6 kg 69.1 kg General appearance: PRESENT: no acute distress, well-developed, well-nourished Head exam: PRESENT: atraumatic, normocephalic Eye exam: PRESENT: conjunctiva pink, EOMI, PERRLA. ABSENT: scleral icterus Ear exam: PRESENT: normal external ear exam Mouth exam: PRESENT: moist, tongue midline Neck exam: PRESENT: full ROM. ABSENT: carotid bruit, JVD, lymphadenopathy, thyromegaly Respiratory exam: PRESENT: clear to auscultation jaime Cardiovascular exam: PRESENT: RRR. ABSENT: diastolic murmur, rubs, systolic murmur Murmur grade: 2 Pulses: PRESENT: normal dorsalis pedis pul, +2 pedal pulses bilateral Vascular exam: PRESENT: normal capillary refill GI/Abdominal exam: PRESENT: normal bowel sounds, soft. ABSENT: distended, guarding, mass, organolmegaly, rebound, tenderness Rectal exam: PRESENT: deferred Extremities exam: PRESENT: pedal edema Additional comments: Patient is on ventilator on diprivan Neurological exam: PRESENT: alert, awake, oriented to person, oriented to place , oriented to time, oriented to situation, CN II-XII grossly intact. ABSENT: motor sensory deficit Psychiatric exam: PRESENT: appropriate affect, normal mood. ABSENT: homicidal ideation, suicidal ideation Results Laboratory Results: 09/11/18 05:25 09/11/18 05:25 09/11/18 09/11/18 09/11/18 05:25 05:25 05:25 WBC 13.8 H RBC 3.51 L Hgb 10.1 L Hct 30.8 L MCV 88 MCH 28.6 MCHC 32.7 RDW 17.1 H Plt Count 353 Seg Neutrophils % Not Reportable Lymphocytes % Not Reportable Monocytes % Not Reportable Eosinophils % Not Reportable Basophils % Not Reportable Absolute Neutrophils Not Reportable Absolute Lymphocytes Not Reportable Absolute Monocytes Not Reportable Absolute Eosinophils Not Reportable Absolute Basophils Not Reportable Carbonic Acid 1.32 HCO3/H2CO3 Ratio 21:1 ABG pH 7.43 ABG pCO2 43.8 ABG pO2 89.9 ABG HCO3 28.6 H ABG O2 Saturation 97.1 ABG Base Excess 3.9 FiO2 30% Sodium 142.8 Potassium 3.5 L Chloride 106 Carbon Dioxide 34 H Anion Gap 3 L BUN 9 Creatinine 0.40 L Est GFR ( Amer) > 60 Est GFR (Non-Af Amer) > 60 Glucose 111 H Calcium 8.5 Phosphorus 2.7 Magnesium 1.8 09/03/18 09/03/18 09/03/18 17:10 23:40 23:40 Creatine Kinase < 20 L CK-MB (CK-2) 1.41 1.40 Troponin I 0.036 0.033 NT-Pro-B Natriuret Pep 09/04/18 09/04/18 09/04/18 05:50 05:50 12:10 Creatine Kinase < 20 L Cancelled CK-MB (CK-2) 0.98 Troponin I 0.026 NT-Pro-B Natriuret Pep 09/04/18 09/04/18 09/04/18 12:10 18:03 18:03 Creatine Kinase < 20 L CK-MB (CK-2) 0.37 < 0.22 Troponin I 0.021 0.033 NT-Pro-B Natriuret Pep 09/04/18 09/04/18 09/07/18 23:40 23:40 06:15 Creatine Kinase < 20 L CK-MB (CK-2) 0.23 Troponin I 0.029 NT-Pro-B Natriuret Pep 837 Impressions: Chest X-Ray 09/11/18 06:00 IMPRESSION: No significant change. Assessment & Plan - Diagnosis (1) Supraventricular tachycardia Is this a current diagnosis for this admission?: Yes Plan: continue cardiezam and digoxin and eliquis (2) Acute and chronic respiratory failure ([id number]) Qualifiers: Respiratory failure complication: hypoxia and hypercapnia Qualified Code(s) : J96.21 - Acute and chronic respiratory failure with hypoxia; J96.22 - Acute and chronic respiratory failure with hypercapnia; J96.22 - Acute and chronic respiratory failure with hypercapnia; J96.22 - Acute and chronic respiratory failure with hypercapnia Is this a current diagnosis for this admission?: Yes Plan: cont. weaning trial she is on day 8 of ventilator, chest PT and b2 agonist , she is getting elevated HOB 45degrees. (3) Anemia Qualifiers: Anemia type: iron deficiency Iron deficiency anemia type: unspecified iron deficiency Qualified Code(s): D50.9 - Iron deficiency anemia, unspecified Is this a current diagnosis for this admission?: Yes (4) Hypokalemia Is this a current diagnosis for this admission?: Yes (5) Hypomagnesemia Is this a current diagnosis for this admission?: Yes (6) Septic shock Is this a current diagnosis for this admission?: Yes Plan: cont. current antibiotics off pressor - Time Time Spent with patient: 15-24 minutes Medications reviewed and adjusted accordingly: Yes Anticipated discharge: SNF Within: Other - Inpatient Certification I certify that my determination is in accordance with my understanding of Medicare's requirements for reasonable and necessary INPATIENT services [42 CFR 412.3e].: Yes Medical Necessity: Failure to Improve With Outpatient Therapy, Need Close Monitoring Due to Risk of Patient Decompensation, Need For IV Fluids, Need for IV Antibiotics Post Hospital Care: D/C Threader Documentation
[2018-09-11] MEDS: MONTELUKAST SODIUM 10 MG TABLET NG SCH (21:49)
[2018-09-12] MEDS: VANCOMYCIN HCL 1,000 MG in DEXTROSE 5%-WATER 250 ML IV SCH (02:33)
[2018-09-12 05:26] LABS: ARTERIAL BLOOD BASE EXCESS 8.9 mmol/L; ARTERIAL BLOOD H2CO3 1.39 mmol/L (1.05-1.35); ARTERIAL BLOOD HCO3 33.6 mmol/L (20-24); ARTERIAL BLOOD PCO2 46.1 mmHg (35-45); ARTERIAL BLOOD PH 7.48 (7.35-7.45); ARTERIAL BLOOD PO2 61.8 mmHg (80-100)
[2018-09-12 05:28] LABS: HEMATOCRIT 30.9 % (36.0-47.0); HEMOGLOBIN 10.2 g/dL (12.0-15.5); MEAN CORPUSCULAR HEMOGLOBIN 28.7 pg (27.0-33.4); MEAN CORPUSCULAR VOLUME 87 fl (80-97); PLATELET COUNT 378 10^3/uL (150-450); RED BLOOD COUNT 3.55 10^6/uL (3.72-5.28); RED CELL DISTRIBUTION WIDTH 17.3 % (11.5-14.0); WHITE BLOOD COUNT 16.6 10^3/uL (4.0-10.5)
[2018-09-12] MEDS: PROPOFOL 1,000 MG/100 ML INFUS..BTL IV PRN ×2 (05:31→21:03)
[2018-09-12] MEDS: DILTIAZEM HCL 30 MG TABLET NG SCH ×3 (05:31→21:31)
[2018-09-12 05:35] LABS: ARTERIAL BLOOD FIO2 25%
[2018-09-12 05:46] LABS: ALANINE AMINOTRANSFERASE 12 U/L (9-52); ALBUMIN 2.1 g/dL (3.5-5.0); ALKALINE PHOSPHATASE 92 U/L (38-126); ANION GAP 6 (5-19); ASPARTATE AMINO TRANSFERASE 10 U/L (14-36); BILIRUBIN,TOTAL < 0.1 mg/dL (0.2-1.3); BLOOD UREA NITROGEN 10 mg/dL (7-20); CALCIUM 8.9 mg/dL (8.4-10.2); CARBON DIOXIDE 35 mmol/L (22-30); CHLORIDE 102 mmol/L (98-107); GLUCOSE 112 mg/dL (75-110); POTASSIUM 4.1 mmol/L (3.6-5.0); SODIUM 142.7 mmol/L (137-145); TOTAL PROTEIN 4.5 g/dL (6.3-8.2); TRIGLYCERIDES 121 mg/dL (<150)
[2018-09-12 05:59] LABS: ABSOLUTE LYMPHOCYTES# (MANUAL) 2.2 10^3/uL (0.5-4.7); ABSOLUTE NEUTROPHILS# (MANUAL) 13.1 10^3/uL (1.7-8.2); BASOPHILS % (MANUAL) 0 % (0-2); EOSINOPHILS % (MANUAL) 2 % (0-6); LYMPHOCYTES % (MANUAL) 13 % (13-45); MONOCYTES % (MANUAL) 6 % (3-13); POLYCHROMASIA SLIGHT; SEGMENTED NEUTROPHILS % (MAN) 79 % (42-78); TOTAL CELLS COUNTED 100; TOXIC GRANULATION SLIGHT
[2018-09-12 06:00] LABS: ANISOCYTOSIS 1+; PLATELET COMMENT ADEQUATE; PLATELET LARGE PRESENT; SCHISTOCYTES SLIGHT
--- NOTE | 2018-09-12 06:19 | RADIOLOGY REPORT (SQ) ---
Chest single view on 09/12/2018 at 6:04 AM CLINICAL INDICATION: Respiratory failure COMPARISON: 09/11/2018 FINDINGS: ET tube tip is in the lower thoracic trachea. NG tube extends into the stomach. Right IJ catheter tip is in the right atrium. A few overlying wires are noted. Heart is upper limits normal for size. There are trace bilateral pleural effusions. There is mild bibasilar atelectasis. Lungs are otherwise clear. IMPRESSION: No significant change in the appearance of the chest.
[2018-09-12] MEDS: ACETYLCYSTEINE 20% SOLN 800 MG/4 ML VIAL.NEB NEB SCH ×2 (07:55→19:52)
[2018-09-12] MEDS: BUDESONIDE NEB 0.5 MG/2 ML AMPUL NEB SCH ×2 (07:55→19:52)
[2018-09-12] MEDS: LEVALBUTEROL HCL NEB 0.63 MG/3 ML AMPUL NEB PRN ×2 (07:55→19:52)
[2018-09-12] MEDS: PANTOPRAZOLE SODIUM 40 MG VIAL IV SCH (09:30)
[2018-09-12] MEDS: CEFEPIME 2 GM/D5W RTU 2 GM/50 ML RTUPB IV SCH ×2 (09:31→21:30)
[2018-09-12] MEDS: PRAMIPEXOLE DI-HCL 0.25 MG TABLET NG SCH (09:32)
[2018-09-12] MEDS: APIXABAN 2.5 MG TABLET NG SCH ×2 (09:32→17:46)
[2018-09-12] MEDS: ROFLUMILAST 500 MCG TABLET NG SCH (09:32)
[2018-09-12] MEDS: METOPROLOL TARTRATE 50 MG TABLET NG SCH ×2 (09:32→21:31)
[2018-09-12] MEDS: DOCUSATE SODIUM 100 MG/10 ML UDC NG SCH ×2 (09:33→19:22)
[2018-09-12] MEDS: TIOTROPIUM BROMIDE DPI 5 CAP/KIT (18 MCG/CAP) IH SCH (09:33)
[2018-09-12] MEDS: DIGOXIN INJ 0.5 MG/2 ML AMPULE IV SCH (09:34)
--- NOTE | 2018-09-12 13:45 | PDOC PROGRESS REPORT ---
Subjective Progress Note for:: 09/12/18 Subjective:: Patient is on presssure support comfortsble no drainage from ET tube urine output good CVP is 6-8,she is afebrile. She is tolerating feeding.Seen by palliative care and is full CODE. Reason For Visit: SVT Physical Exam Vital Signs: Temp Pulse Resp BP Pulse Ox 99.7 F 103 H 12 130/55 H 98 09/12/18 11:35 09/12/18 08:50 09/12/18 10:00 09/12/18 09:54 09/12/18 10:00 Intake & Output 09/11/18 09/12/18 09/13/18 06:59 06:59 06:59 Intake Total 3421 1742 Output Total 3635 4840 875 Balance -214 -3098 -875 Weight 69.1 kg 67.9 kg General appearance: PRESENT: no acute distress, well-developed, well-nourished Head exam: PRESENT: atraumatic, normocephalic Eye exam: PRESENT: conjunctiva pink, EOMI, PERRLA. ABSENT: scleral icterus Ear exam: PRESENT: normal external ear exam Mouth exam: PRESENT: moist, tongue midline Neck exam: PRESENT: full ROM. ABSENT: carotid bruit, JVD, lymphadenopathy, thyromegaly Respiratory exam: PRESENT: clear to auscultation jaime, unlabored Cardiovascular exam: PRESENT: RRR, systolic murmur Murmur grade: 2 Pulses: PRESENT: normal dorsalis pedis pul, +2 pedal pulses bilateral GI/Abdominal exam: PRESENT: normal bowel sounds, soft. ABSENT: distended, guarding, mass, organolmegaly, rebound, tenderness Rectal exam: PRESENT: deferred Extremities exam: PRESENT: pedal edema Additional comments: Patient is bed bound on ventilator. Neurological exam: PRESENT: alert Psychiatric exam: PRESENT: appropriate affect, normal mood. ABSENT: homicidal ideation, suicidal ideation Skin exam: PRESENT: dry, intact, warm. ABSENT: cyanosis, rash Results Laboratory Results: 09/12/18 05:15 09/12/18 05:15 09/12/18 09/12/18 09/12/18 05:15 05:15 05:15 WBC 16.6 H RBC 3.55 L Hgb 10.2 L Hct 30.9 L MCV 87 MCH 28.7 MCHC 33.0 RDW 17.3 H Plt Count 378 Seg Neutrophils % Not Reportable Lymphocytes % Not Reportable Monocytes % Not Reportable Eosinophils % Not Reportable Basophils % Not Reportable Absolute Neutrophils Not Reportable Absolute Lymphocytes Not Reportable Absolute Monocytes Not Reportable Absolute Eosinophils Not Reportable Absolute Basophils Not Reportable Carbonic Acid 1.39 H HCO3/H2CO3 Ratio 24:1 ABG pH 7.48 H ABG pCO2 46.1 H ABG pO2 61.8 L ABG HCO3 33.6 H ABG O2 Saturation 93.0 L ABG Base Excess 8.9 FiO2 25% Sodium 142.7 Potassium 4.1 Chloride 102 Carbon Dioxide 35 H Anion Gap 6 BUN 10 Creatinine 0.36 L Est GFR ( Amer) > 60 Est GFR (Non-Af Amer) > 60 Glucose 112 H Calcium 8.9 Magnesium 1.8 Total Bilirubin < 0.1 L AST 10 L ALT 12 Alkaline Phosphatase 92 Total Protein 4.5 L Albumin 2.1 L Triglycerides 121 09/03/18 09/03/18 09/03/18 17:10 23:40 23:40 Creatine Kinase < 20 L CK-MB (CK-2) 1.41 1.40 Troponin I 0.036 0.033 NT-Pro-B Natriuret Pep 09/04/18 09/04/18 09/04/18 05:50 05:50 12:10 Creatine Kinase < 20 L Cancelled CK-MB (CK-2) 0.98 Troponin I 0.026 NT-Pro-B Natriuret Pep 09/04/18 09/04/18 09/04/18 12:10 18:03 18:03 Creatine Kinase < 20 L CK-MB (CK-2) 0.37 < 0.22 Troponin I 0.021 0.033 NT-Pro-B Natriuret Pep 09/04/18 09/04/18 09/07/18 23:40 23:40 06:15 Creatine Kinase < 20 L CK-MB (CK-2) 0.23 Troponin I 0.029 NT-Pro-B Natriuret Pep 837 Impressions: Chest X-Ray 09/12/18 06:00 IMPRESSION: No significant change in the appearance of the chest. Assessment & Plan - Diagnosis (1) Supraventricular tachycardia Is this a current diagnosis for this admission?: Yes Plan: cont. cardiezam and digoxin (2) Acute and chronic respiratory failure ([id number]) Qualifiers: Respiratory failure complication: hypoxia and hypercapnia Qualified Code(s) : J96.21 - Acute and chronic respiratory failure with hypoxia; J96.22 - Acute and chronic respiratory failure with hypercapnia; J96.22 - Acute and chronic respiratory failure with hypercapnia; J96.22 - Acute and chronic respiratory failure with hypercapnia Is this a current diagnosis for this admission?: Yes Plan: cont. weaning trial she is on day 8 of ventilator, chest PT and b2 agonist , she is getting elevated HOB 45degrees. (3) Anemia Qualifiers: Anemia type: iron deficiency Iron deficiency anemia type: unspecified iron deficiency Qualified Code(s): D50.9 - Iron deficiency anemia, unspecified Is this a current diagnosis for this admission?: Yes (4) Hypokalemia Is this a current diagnosis for this admission?: Yes (5) Hypomagnesemia Is this a current diagnosis for this admission?: Yes (6) Septic shock Is this a current diagnosis for this admission?: Yes Plan: cont. current antibiotics off pressor (7) Leukocytosis Qualifiers: Leukocytosis type: other Qualified Code(s): D72.828 - Other elevated white blood cell count Is this a current diagnosis for this admission?: Yes Plan: blood cultures and urine c/s and stool c. dificile toxin, cont. IV antibiotics till other results dictate change. - Time Time Spent with patient: 15-24 minutes Medications reviewed and adjusted accordingly: Yes Anticipated discharge: SNF Within: Other - Inpatient Certification Medical Necessity: Failure to Improve With Outpatient Therapy, Need For IV Fluids, Need for IV Antibiotics, Risk of Complication if Not Cared For in Hospital, Risk of Diagnosis Which Will Require Inpatient Eval/Care/Monitoring Post Hospital Care: D/C Assistant Professor Of Art Documentation - Plan Summary Plan Summary: cont. ventilator support and possible weaning next 24- 48 hrs then discussion about code status can be entertained.
[2018-09-12] MEDS: LINEZOLID 600 MG/300 ML RTUPB IV SCH ×2 (13:56→21:30)
[2018-09-12] MEDS: 1/2 NORMAL SALINE 1,000 ML IV PRN (13:57)
[2018-09-12 15:42] LABS: VANCOMYCIN,TROUGH 18.8 ug/mL (5.0-20.0)
[2018-09-12] MEDS: FENTANYL CITRATE INJ/PF 100 MCG/2 ML AMPUL IV PRN (17:46)
--- NOTE | 2018-09-12 20:10 | PDOC PROGRESS REPORT ---
Subjective Progress Note for:: 09/12/18 Subjective:: Patient about the same and has made very little progress. There is no significant change in general condition. Still intubated but more alert. Off sedation. Patient remains intubated, patient however looks comfortable and in acute distress. Patient is maintaining sinus rhythm. No recurrence of SVT noted. Medications reviewed. Reason For Visit: SVT Physical Exam Vital Signs: Temp Pulse Resp BP Pulse Ox 99.7 F 103 H 14 105/66 95 09/12/18 19:48 09/12/18 08:50 09/12/18 18:00 09/12/18 17:55 09/12/18 18:00 Intake & Output 09/11/18 09/12/18 09/13/18 06:59 06:59 06:59 Intake Total 3421 2742 501 Output Total 3636 7083 2650 Balance -214 -2097 -2148 Weight 69.1 kg 67.9 kg Exam: GENERAL: well-nourished and in no acute distress. Patient is intubated. Orientation cannot be checked HEAD: Atraumatic, normocephalic. EYES: Pupils equal round and reactive to light, extraocular movements could not be checked, sclera anicteric, conjunctiva are normal. ENT: TMs normal, nares patent, oropharynx clear without exudates. Moist mucous membranes. No oral ulcerations or bleeding gums noted NECK: supple without lymphadenopathy or JVD. Trachea is central. No cervical or axillary lymphadenopathy noted. Carotids are 2+ LUNGS: Breath sounds mostly clear to auscultation patient is noted to have bibasal crackles at the extreme bases CHEST: Palpation of the chest wall shows no significant chest wall tenderness or abnormalities. 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 ABDOMEN: Soft, no significant tenderness appreciated, normoactive bowel sounds. No guarding, no rebound. No rigidity noted . No masses appreciated. EXTREMITIES: Pedal pulses are 1-2+, no calf tenderness noted, 1+ pedal edema noted. No clubbing or cyanosis. NEUROLOGICAL: The patient cannot participate in the neurological exam but no facial asymmetry noted. PSYCH: This cannot be evaluated. Patient cannot participate. SKIN: No significant ecchymosis, rash, or signs of pruritus noted. MUSCULOSKELETAL EXAM: No significant joint swelling noted. Patient cannot participate in musculoskeletal exam Results Laboratory Results: 09/12/18 05:15 09/12/18 05:15 09/12/18 09/12/18 09/12/18 05:15 05:15 05:15 WBC 16.6 H RBC 3.55 L Hgb 10.2 L Hct 30.9 L MCV 87 MCH 28.7 MCHC 33.0 RDW 17.3 H Plt Count 378 Seg Neutrophils % Not Reportable Lymphocytes % Not Reportable Monocytes % Not Reportable Eosinophils % Not Reportable Basophils % Not Reportable Absolute Neutrophils Not Reportable Absolute Lymphocytes Not Reportable Absolute Monocytes Not Reportable Absolute Eosinophils Not Reportable Absolute Basophils Not Reportable Carbonic Acid 1.39 H HCO3/H2CO3 Ratio 24:1 ABG pH 7.48 H ABG pCO2 46.1 H ABG pO2 61.8 L ABG HCO3 33.6 H ABG O2 Saturation 93.0 L ABG Base Excess 8.9 FiO2 25% Sodium 142.7 Potassium 4.1 Chloride 102 Carbon Dioxide 35 H Anion Gap 6 BUN 10 Creatinine 0.36 L Est GFR ( Amer) > 60 Est GFR (Non-Af Amer) > 60 Glucose 112 H Calcium 8.9 Magnesium 1.8 Total Bilirubin < 0.1 L AST 10 L ALT 12 Alkaline Phosphatase 92 Total Protein 4.5 L Albumin 2.1 L Triglycerides 121 09/03/18 09/03/18 09/03/18 17:10 23:40 23:40 Creatine Kinase < 20 L CK-MB (CK-2) 1.41 1.40 Troponin I 0.036 0.033 NT-Pro-B Natriuret Pep 09/04/18 09/04/18 09/04/18 05:50 05:50 12:10 Creatine Kinase < 20 L Cancelled CK-MB (CK-2) 0.98 Troponin I 0.026 NT-Pro-B Natriuret Pep 09/04/18 09/04/18 09/04/18 12:10 18:03 18:03 Creatine Kinase < 20 L CK-MB (CK-2) 0.37 < 0.22 Troponin I 0.021 0.033 NT-Pro-B Natriuret Pep 09/04/18 09/04/18 09/07/18 23:40 23:40 06:15 Creatine Kinase < 20 L CK-MB (CK-2) 0.23 Troponin I 0.029 NT-Pro-B Natriuret Pep 837 EKG Comments: Telemetry shows sinus rhythm. No sustained tachycardia noted. No bradycardia noted. Impressions: Chest X-Ray 09/12/18 06:00 IMPRESSION: No significant change in the appearance of the chest. Assessment & Plan - Diagnosis (1) Supraventricular tachycardia Is this a current diagnosis for this admission?: Yes (2) Acute and chronic respiratory failure ([id number]) Qualifiers: Respiratory failure complication: hypoxia and hypercapnia Qualified Code(s) : J96.21 - Acute and chronic respiratory failure with hypoxia; J96.22 - Acute and chronic respiratory failure with hypercapnia; J96.22 - Acute and chronic respiratory failure with hypercapnia; J96.22 - Acute and chronic respiratory failure with hypercapnia Is this a current diagnosis for this admission?: Yes (3) Atrial flutter with rapid ventricular response Is this a current diagnosis for this admission?: Yes (4) COPD (chronic obstructive pulmonary disease) Qualifiers: COPD type: unspecified COPD Qualified Code(s): J44.9 - Chronic obstructive pulmonary disease, unspecified Is this a current diagnosis for this admission?: Yes (5) Coronary artery disease Qualifiers: Coronary Disease-Associated Artery/Lesion type: [place] artery [place] vs. transplanted heart: [place] heart Associated angina: without angina Qualified Code(s): I25.10 - Atherosclerotic heart disease of [place] coronary artery without angina pectoris Is this a current diagnosis for this admission?: Yes (6) Hypertension Qualifiers: Hypertension type: essential hypertension Qualified Code(s): I10 - Essential (primary) hypertension Is this a current diagnosis for this admission?: Yes - Notes Notes: Patient has significant comorbidities. However all these comorbidities being adequately treated and patient has no significant symptoms. Patient medical regimen reviewed and is noted to be satisfactory. We will continue to follow on as-needed basis to look for any cardiac related symptoms. All patient's telemetry strips were reviewed. Continue chronic anticoagulation with Eliquis. Patient generally stable for last 48 hours. Have not noted any cardiac dysrhythmia. Continue current regimen. - Time Time with patient: 15-25 minutes - More than 50% of the time spent coordinating care, discussing management plans with involved caregivers. Management plans discussed with involved personnels. Medical decision making was of moderate to high complexity, patient's has multiple comorbidities. Medications reviewed and adjusted accordingly: Yes
[2018-09-12] MEDS: MONTELUKAST SODIUM 10 MG TABLET NG SCH (21:31)
[2018-09-13] MEDS: PROPOFOL 1,000 MG/100 ML INFUS..BTL IV PRN ×2 (02:17→19:32)
[2018-09-13] MEDS: 1/2 NORMAL SALINE 1,000 ML IV PRN (02:19)
[2018-09-13] MEDS: DILTIAZEM HCL 30 MG TABLET NG SCH ×3 (06:17→22:05)
[2018-09-13 07:50] LABS: ARTERIAL BLOOD BASE EXCESS 12.4 mmol/L; ARTERIAL BLOOD H2CO3 1.55 mmol/L (1.05-1.35); ARTERIAL BLOOD HCO3 37.6 mmol/L (20-24); ARTERIAL BLOOD O2 SATURATION 92.8 % (94-98); ARTERIAL BLOOD PCO2 51.6 mmHg (35-45); ARTERIAL BLOOD PH 7.48 (7.35-7.45); ARTERIAL BLOOD PO2 61.8 mmHg (80-100); ARTERIAL BLOOD TOTAL CO2 39.1 mmol/L (21-25)
[2018-09-13 08:01] LABS: ARTERIAL BLOOD FIO2 30%
[2018-09-13 08:06] LABS: ALANINE AMINOTRANSFERASE 17 U/L (9-52); ALBUMIN 2.2 g/dL (3.5-5.0); ALKALINE PHOSPHATASE 100 U/L (38-126); ANION GAP 7 (5-19); ASPARTATE AMINO TRANSFERASE 11 U/L (14-36); BILIRUBIN,TOTAL 0.1 mg/dL (0.2-1.3); BLOOD UREA NITROGEN 11 mg/dL (7-20); CARBON DIOXIDE 36 mmol/L (22-30); CHLORIDE 98 mmol/L (98-107); GLUCOSE 100 mg/dL (75-110); POTASSIUM 4.2 mmol/L (3.6-5.0); SODIUM 140.7 mmol/L (137-145); TOTAL PROTEIN 4.7 g/dL (6.3-8.2)
[2018-09-13 08:18] LABS: HEMATOCRIT 30.6 % (36.0-47.0); HEMOGLOBIN 9.9 g/dL (12.0-15.5); MEAN CORPUSCULAR HEMOGLOBIN 28.2 pg (27.0-33.4); MEAN CORPUSCULAR HGB CONC 32.3 g/dL (32.0-36.0); MEAN CORPUSCULAR VOLUME 87 fl (80-97); PLATELET COUNT 441 10^3/uL (150-450); RED CELL DISTRIBUTION WIDTH 16.9 % (11.5-14.0); WHITE BLOOD COUNT 18.1 10^3/uL (4.0-10.5)
[2018-09-13] MEDS: ACETYLCYSTEINE 20% SOLN 800 MG/4 ML VIAL.NEB NEB SCH (08:27)
[2018-09-13] MEDS: LEVALBUTEROL HCL NEB 0.63 MG/3 ML AMPUL NEB PRN ×2 (08:27→19:45)
[2018-09-13] MEDS: BUDESONIDE NEB 0.5 MG/2 ML AMPUL NEB SCH ×2 (08:27→19:45)
[2018-09-13 09:08] LABS: ABSOLUTE LYMPHOCYTES# (MANUAL) 2.4 10^3/uL (0.5-4.7); ABSOLUTE MONOCYTES # (MANUAL) 0.7 10^3/uL (0.1-1.4); ABSOLUTE NEUTROPHILS# (MANUAL) 14.5 10^3/uL (1.7-8.2); BAND NEUTROPHILS % (MANUAL) 1 % (3-5); BASOPHILS % (MANUAL) 0 % (0-2); EOSINOPHILS % (MANUAL) 3 % (0-6); LYMPHOCYTES % (MANUAL) 13 % (13-45); MONOCYTES % (MANUAL) 4 % (3-13); NUCLEATED RED BLOOD CELLS 1 /100 WBC (0); SEGMENTED NEUTROPHILS % (MAN) 79 % (42-78); TOTAL CELLS COUNTED 100
[2018-09-13 09:09] LABS: ANISOCYTOSIS 1+; OVALOCYTES 1+; PLATELET COMMENT ADEQUATE; POIKILOCYTOSIS 1+; POLYCHROMASIA SLIGHT
[2018-09-13] MEDS: PANTOPRAZOLE SODIUM 40 MG VIAL IV SCH (09:47)
[2018-09-13] MEDS: DIGOXIN INJ 0.5 MG/2 ML AMPULE IV SCH (09:48)
[2018-09-13] MEDS: FENTANYL CITRATE INJ/PF 100 MCG/2 ML AMPUL IV PRN (09:49)
[2018-09-13] MEDS: LINEZOLID 600 MG/300 ML RTUPB IV SCH ×2 (09:54→22:04)
[2018-09-13] MEDS: CEFEPIME 2 GM/D5W RTU 2 GM/50 ML RTUPB IV SCH (09:56)
[2018-09-13] MEDS: METOPROLOL TARTRATE 50 MG TABLET NG SCH ×2 (09:57→22:04)
[2018-09-13] MEDS: APIXABAN 2.5 MG TABLET NG SCH (10:04)
[2018-09-13] MEDS: DOCUSATE SODIUM 100 MG/10 ML UDC NG SCH ×2 (10:04→19:07)
[2018-09-13] MEDS: ROFLUMILAST 500 MCG TABLET NG SCH (10:04)
--- NOTE | 2018-09-13 10:04 | RADIOLOGY REPORT (SQ) ---
EXAM DESCRIPTION: CHEST SINGLE VIEW COMPLETED DATE/TIME: 09/13/2018 8:02 am REASON FOR STUDY: resp. failure, intubated COMPARISON: AP chest 09/12/2018, 09/11/2018, 09/10/2018, 09/09/2018 EXAM PARAMETERS: NUMBER OF VIEWS: One view. TECHNIQUE: Single frontal radiographic view of the chest acquired. RADIATION DOSE: NA LIMITATIONS: None. FINDINGS: LUNGS AND PLEURA: Stable minimal bibasilar airspace disease likely atelectasis. Trace rig ht pleural fluid. No pneumothorax. MEDIASTINUM AND HILAR STRUCTURES: No masses. Contour normal. HEART AND VASCULAR STRUCTURES: Heart normal in size. Normal vasculature. BONES: No acute findings. HARDWARE: Endotracheal tube tip 1 cm above the supa. This report was called to Karena patient's nurse in the ICU. Right jugular central line tip in the right atrium. Nasogastric tube tip and jose eduardo e-port in stomach. OTHER: No other significant finding. IMPRESSION: Endotracheal tube tip 1 cm above the supa. This report was called to the patient's nu rse in ICU. Minimal bibasilar atelectasis with trace right pleural fluid, stable TECHNICAL DOCUMENTATION: JOB ID: [id number] [employer]- All Rights Reserved Reading location - IP/workstation name: [email or web address]
[2018-09-13] MEDS: PRAMIPEXOLE DI-HCL 0.25 MG TABLET NG SCH (10:05)
[2018-09-13] MEDS: TIOTROPIUM BROMIDE DPI 5 CAP/KIT (18 MCG/CAP) IH SCH (10:05)
[2018-09-13 10:11] LABS: APPEARANCE,URINE CLEAR; BILIRUBIN,URINE NEGATIVE (NEGATIVE); COLOR,URINE YELLOW; GLUCOSE, URINE NEGATIVE (NEGATIVE); KETONES,URINE NEGATIVE (NEGATIVE); LEUKOCYTE ESTERASE,URINE NEGATIVE (NEGATIVE); NITRITE,URINE NEGATIVE (NEGATIVE); PROTEIN,URINE NEGATIVE (NEGATIVE); URINE SPECIFIC GRAVITY 1.011; UROBILINOGEN,URINE NEGATIVE mg/dL (<2.0)
--- NOTE | 2018-09-13 13:59 | PDOC PROGRESS REPORT ---
Subjective Progress Note for:: 09/13/18 Subjective:: Phillips is awake she is on the ventilator she has been afebrile discussion was had with pulmonary present nursing and respiratory therapy. Minimal secretions from the ET tube are clear, she is tolerating feeding her for C. difficile is negative blood cultures are negative they are in the process of weaning. She has a very low negative inspiratory pressures they will decrease the pressure support. Reason For Visit: SVT Physical Exam Vital Signs: Temp Pulse Resp BP Pulse Ox 101.1 F H 99 15 138/56 H 95 09/13/18 13:52 09/13/18 09:34 09/13/18 10:42 09/13/18 10:42 09/13/18 11:14 Intake & Output 09/12/18 09/13/18 09/14/18 06:59 06:59 06:59 Intake Total 2992 3172 350 Output Total 4840 4675 1250 Balance -4968 -0823 -900 Weight 67.9 kg 66.7 kg General appearance: PRESENT: no acute distress, well-developed, well-nourished Head exam: PRESENT: atraumatic, normocephalic Eye exam: PRESENT: conjunctiva pink, EOMI, PERRLA. ABSENT: scleral icterus Ear exam: PRESENT: normal external ear exam Mouth exam: PRESENT: moist, tongue midline Neck exam: PRESENT: full ROM. ABSENT: carotid bruit, JVD, lymphadenopathy, thyromegaly Respiratory exam: PRESENT: decreased breath sounds Cardiovascular exam: PRESENT: systolic murmur Murmur grade: 2 Pulses: PRESENT: normal dorsalis pedis pul, +2 pedal pulses bilateral Vascular exam: PRESENT: normal capillary refill GI/Abdominal exam: PRESENT: normal bowel sounds, soft. ABSENT: distended, guarding, mass, organolmegaly, rebound, tenderness Rectal exam: PRESENT: deferred Extremities exam: PRESENT: pedal edema Additional comments: Continues to be on the ventilator, Neurological exam: PRESENT: alert, awake, oriented to person Psychiatric exam: PRESENT: appropriate affect, normal mood. ABSENT: homicidal ideation, suicidal ideation Skin exam: PRESENT: dry, intact, warm. ABSENT: cyanosis, rash Results Laboratory Results: 09/13/18 07:30 09/13/18 07:30 09/13/18 09/13/18 09/13/18 07:30 07:30 07:30 WBC 18.1 H RBC 3.50 L Hgb 9.9 L Hct 30.6 L MCV 87 MCH 28.2 MCHC 32.3 RDW 16.9 H Plt Count 441 Seg Neutrophils % Not Reportable Lymphocytes % Not Reportable Monocytes % Not Reportable Eosinophils % Not Reportable Basophils % Not Reportable Absolute Neutrophils Not Reportable Absolute Lymphocytes Not Reportable Absolute Monocytes Not Reportable Absolute Eosinophils Not Reportable Absolute Basophils Not Reportable Carbonic Acid 1.55 H HCO3/H2CO3 Ratio 24:1 ABG pH 7.48 H ABG pCO2 51.6 H ABG pO2 61.8 L ABG HCO3 37.6 H ABG O2 Saturation 92.8 L ABG Base Excess 12.4 FiO2 30% Sodium 140.7 Potassium 4.2 Chloride 98 Carbon Dioxide 36 H Anion Gap 7 BUN 11 Creatinine 0.33 L Est GFR ( Amer) > 60 Est GFR (Non-Af Amer) > 60 Glucose 100 Calcium 9.0 Magnesium 1.8 Total Bilirubin 0.1 L AST 11 L ALT 17 Alkaline Phosphatase 100 Total Protein 4.7 L Albumin 2.2 L Urine Color Urine Appearance Urine pH Ur Specific [place] Urine Protein Urine Glucose (UA) Urine Ketones Urine Blood Urine Nitrite Ur Leukocyte Esterase Urine WBC (Auto) Urine RBC (Auto) 09/13/18 09:52 WBC RBC Hgb Hct MCV MCH MCHC RDW Plt Count Seg Neutrophils % Lymphocytes % Monocytes % Eosinophils % Basophils % Absolute Neutrophils Absolute Lymphocytes Absolute Monocytes Absolute Eosinophils Absolute Basophils Carbonic Acid HCO3/H2CO3 Ratio ABG pH ABG pCO2 ABG pO2 ABG HCO3 ABG O2 Saturation ABG Base Excess FiO2 Sodium Potassium Chloride Carbon Dioxide Anion Gap BUN Creatinine Est GFR ( Amer) Est GFR (Non-Af Amer) Glucose Calcium Magnesium Total Bilirubin AST ALT Alkaline Phosphatase Total Protein Albumin Urine Color YELLOW Urine Appearance CLEAR Urine pH 7.0 Ur Specific [place] 1.011 Urine Protein NEGATIVE Urine Glucose (UA) NEGATIVE Urine Ketones NEGATIVE Urine Blood NEGATIVE Urine Nitrite NEGATIVE Ur Leukocyte Esterase NEGATIVE Urine WBC (Auto) 1 Urine RBC (Auto) 1 09/09/18 01:40 EST Tracheal Aspirate Gram Stain - Final 09/09/18 01:40 EST Tracheal Aspirate Sputum Culture - Final Mrsa (Meth Resis Staph Aureus) Reduced Normal [place] 09/03/18 09/03/18 09/03/18 17:10 23:40 23:40 Creatine Kinase < 20 L CK-MB (CK-2) 1.41 1.40 Troponin I 0.036 0.033 NT-Pro-B Natriuret Pep 09/04/18 09/04/18 09/04/18 05:50 05:50 12:10 Creatine Kinase < 20 L Cancelled CK-MB (CK-2) 0.98 Troponin I 0.026 NT-Pro-B Natriuret Pep 09/04/18 09/04/18 09/04/18 12:10 18:03 18:03 Creatine Kinase < 20 L CK-MB (CK-2) 0.37 < 0.22 Troponin I 0.021 0.033 NT-Pro-B Natriuret Pep 09/04/18 09/04/18 09/07/18 23:40 23:40 06:15 Creatine Kinase < 20 L CK-MB (CK-2) 0.23 Troponin I 0.029 NT-Pro-B Natriuret Pep 837 Impressions: Chest X-Ray 09/13/18 07:30 IMPRESSION: Endotracheal tube tip 1 cm above the supa. This report was called to the patient's nurse in ICU. Minimal bibasilar atelectasis with trace right pleural fluid, stable Assessment & Plan - Diagnosis (1) Supraventricular tachycardia Is this a current diagnosis for this admission?: Yes Plan: Continue on the Cardizem and the digoxin will monitor (2) Acute and chronic respiratory failure ([id number]) Qualifiers: Respiratory failure complication: hypoxia and hypercapnia Qualified Code(s) : J96.21 - Acute and chronic respiratory failure with hypoxia; J96.22 - Acute and chronic respiratory failure with hypercapnia; J96.22 - Acute and chronic respiratory failure with hypercapnia; J96.22 - Acute and chronic respiratory failure with hypercapnia Is this a current diagnosis for this admission?: Yes Plan: New beta-2 agonist, she grew staph aureus from the trach she is getting Zyvox, continue chest PT, Mucomyst, Pulmicort, vent support with weaning process elevate head of bed at 45 degrees. (3) Anemia Qualifiers: Anemia type: iron deficiency Iron deficiency anemia type: unspecified iron deficiency Qualified Code(s): D50.9 - Iron deficiency anemia, unspecified Is this a current diagnosis for this admission?: Yes (4) Hypokalemia Is this a current diagnosis for this admission?: Yes Plan: Potassium has been corrected we will continue to monitor with daily BMP 7. (5) Hypomagnesemia Is this a current diagnosis for this admission?: Yes (6) Septic shock Is this a current diagnosis for this admission?: Yes (7) Leukocytosis Qualifiers: Leukocytosis type: other Qualified Code(s): D72.828 - Other elevated white blood cell count Is this a current diagnosis for this admission?: Yes Plan: And will send a urine analysis, to another stool for C. difficile if patient's urine C. difficile negative we will probably change CVP by the surgical us and send tip for culture and sensitivity. - Time Time Spent with patient: 15-24 minutes Medications reviewed and adjusted accordingly: Yes Anticipated discharge: SNF Within: within 72 hours - Inpatient Certification Medical Necessity: Need For IV Fluids, Need for IV Antibiotics Post Hospital Care: D/C [facility] [place] Documentation
[2018-09-13] MEDS: ACETAMINOPHEN 650 MG SUPP.RECT PR PRN (14:16)
[2018-09-13] MEDS: MONTELUKAST SODIUM 10 MG TABLET NG SCH (22:05)
[2018-09-14] MEDS: PROPOFOL 1,000 MG/100 ML INFUS..BTL IV PRN ×3 (02:02→20:18)
[2018-09-14 05:01] LABS: HEMATOCRIT 33.2 % (36.0-47.0); HEMOGLOBIN 10.6 g/dL (12.0-15.5); MEAN CORPUSCULAR HEMOGLOBIN 27.7 pg (27.0-33.4); MEAN CORPUSCULAR HGB CONC 31.8 g/dL (32.0-36.0); MEAN CORPUSCULAR VOLUME 87 fl (80-97); PLATELET COUNT 390 10^3/uL (150-450); RED BLOOD COUNT 3.81 10^6/uL (3.72-5.28); RED CELL DISTRIBUTION WIDTH 16.9 % (11.5-14.0); WHITE BLOOD COUNT 17.2 10^3/uL (4.0-10.5)
[2018-09-14 05:11] LABS: ALANINE AMINOTRANSFERASE 14 U/L (9-52); ALBUMIN 2.5 g/dL (3.5-5.0); ALKALINE PHOSPHATASE 112 U/L (38-126); ANION GAP 6 (5-19); ASPARTATE AMINO TRANSFERASE 24 U/L (14-36); BILIRUBIN,DIRECT 0.1 mg/dL (0.0-0.4); BILIRUBIN,TOTAL 0.2 mg/dL (0.2-1.3); BLOOD UREA NITROGEN 12 mg/dL (7-20); CALCIUM 9.1 mg/dL (8.4-10.2); CARBON DIOXIDE 38 mmol/L (22-30); CHLORIDE 97 mmol/L (98-107); GLUCOSE 92 mg/dL (75-110); POTASSIUM 4.2 mmol/L (3.6-5.0); SODIUM 140.5 mmol/L (137-145); TOTAL PROTEIN 5.6 g/dL (6.3-8.2)
[2018-09-14 05:18] LABS: ABSOLUTE LYMPHOCYTES# (MANUAL) 1.5 10^3/uL (0.5-4.7); ABSOLUTE MONOCYTES # (MANUAL) 1.5 10^3/uL (0.1-1.4); ABSOLUTE NEUTROPHILS# (MANUAL) 13.8 10^3/uL (1.7-8.2); BAND NEUTROPHILS % (MANUAL) 2 % (3-5); BASOPHILS % (MANUAL) 0 % (0-2); EOSINOPHILS % (MANUAL) 2 % (0-6); LYMPHOCYTES % (MANUAL) 9 % (13-45); METAMYELOCYTES % (MANUAL) 1 % (0); MONOCYTES % (MANUAL) 9 % (3-13); SEGMENTED NEUTROPHILS % (MAN) 77 % (42-78); TOTAL CELLS COUNTED 100
[2018-09-14 05:19] LABS: ANISOCYTOSIS 1+; PLATELET COMMENT ADEQUATE; TOXIC VACUOLATION PRESENT
[2018-09-14] MEDS: DILTIAZEM HCL 30 MG TABLET NG SCH ×3 (06:18→21:27)
[2018-09-14] MEDS: 1/2 NORMAL SALINE 1,000 ML IV PRN ×2 (06:19→17:43)
[2018-09-14 06:29] LABS: ARTERIAL BLOOD BASE EXCESS 10.2 mmol/L; ARTERIAL BLOOD H2CO3 1.43 mmol/L (1.05-1.35); ARTERIAL BLOOD HCO3 34.9 mmol/L (20-24); ARTERIAL BLOOD O2 SATURATION 95.8 % (94-98); ARTERIAL BLOOD PCO2 47.6 mmHg (35-45); ARTERIAL BLOOD PH 7.48 (7.35-7.45); ARTERIAL BLOOD PO2 74.7 mmHg (80-100); ARTERIAL BLOOD TOTAL CO2 36.4 mmol/L (21-25)
[2018-09-14 06:30] LABS: ARTERIAL BLOOD FIO2 30%
--- NOTE | 2018-09-14 06:32 | RADIOLOGY REPORT (SQ) ---
EXAM DESCRIPTION: XR CHEST 1 VIEW COMPLETED DATE/TME: 09/14/2018 06:00 CLINICAL HISTORY: 72 years Female, resp failure COMPARISON: One day prior. NUMBER OF VIEWS/TECHNIQUE: 1/AP FINDINGS: Mild interstitial markings, small left lower retrocardiac opacity, mild rightward cardiac shift/rotation, normal cardiac silhouette size, tip of an endotracheal tube is 2.2 cm from the supa. Consider 3 cm retraction of the endotracheal tube. Likely adequate appearing enteric tube partially obscured. No pneumothorax. Stable bony thorax. IMPRESSION: No significant change. Tip of an endotracheal tube is 2.2 cm from the supa. Consider 3 cm retraction of the endotracheal tube.
[2018-09-14] MEDS: BUDESONIDE NEB 0.5 MG/2 ML AMPUL NEB SCH ×2 (08:24→20:05)
[2018-09-14] MEDS: LEVALBUTEROL HCL NEB 0.63 MG/3 ML AMPUL NEB PRN ×2 (08:25→20:05)
--- NOTE | 2018-09-14 09:20 | PDOC PROGRESS REPORT ---
Subjective Progress Note for:: 09/14/18 Subjective:: Patient is coming off sedation she is afebrile tolerating feeding minimal secretion no new events since last night.Her urine output is good. Reason For Visit: SVT Physical Exam Vital Signs: Temp Pulse Resp BP Pulse Ox 98.4 F 84 14 119/47 L 97 09/14/18 07:27 09/14/18 08:25 09/14/18 08:25 09/14/18 05:55 09/14/18 08:25 Intake & Output 09/13/18 09/14/18 09/15/18 06:59 06:59 06:59 Intake Total 3172 2051 78 Output Total 4675 4200 200 Balance -5808 -2149 -122 Weight 66.7 kg 65.2 kg General appearance: PRESENT: no acute distress, well-developed, well-nourished Head exam: PRESENT: atraumatic, normocephalic Eye exam: PRESENT: conjunctiva pink, EOMI, PERRLA. ABSENT: scleral icterus Ear exam: PRESENT: normal external ear exam Mouth exam: PRESENT: moist, tongue midline Neck exam: PRESENT: full ROM. ABSENT: carotid bruit, JVD, lymphadenopathy, thyromegaly Respiratory exam: PRESENT: decreased breath sounds Cardiovascular exam: PRESENT: systolic murmur Murmur grade: 2 Pulses: PRESENT: normal dorsalis pedis pul, +2 pedal pulses bilateral Vascular exam: PRESENT: normal capillary refill GI/Abdominal exam: PRESENT: normal bowel sounds, soft. ABSENT: distended, guarding, mass, organolmegaly, rebound, tenderness Rectal exam: PRESENT: deferred Extremities exam: PRESENT: pedal edema Additional comments: Patient is bed bound and on ventilator Additional comments: sedated, but once of sedation awake oriented to name answers question with shaking head. Psychiatric exam: PRESENT: appropriate affect, normal mood. ABSENT: homicidal ideation, suicidal ideation Skin exam: PRESENT: dry, intact, warm. ABSENT: cyanosis, rash Results Laboratory Results: 09/14/18 04:51 09/14/18 04:51 09/13/18 09/13/18 09/14/18 09:52 14:50 04:51 WBC 17.2 H RBC 3.81 Hgb 10.6 L Hct 33.2 L MCV 87 MCH 27.7 MCHC 31.8 L RDW 16.9 H Plt Count 390 Seg Neutrophils % Not Reportable Lymphocytes % Not Reportable Monocytes % Not Reportable Eosinophils % Not Reportable Basophils % Not Reportable Absolute Neutrophils Not Reportable Absolute Lymphocytes Not Reportable Absolute Monocytes Not Reportable Absolute Eosinophils Not Reportable Absolute Basophils Not Reportable Carbonic Acid HCO3/H2CO3 Ratio ABG pH ABG pCO2 ABG pO2 ABG HCO3 ABG O2 Saturation ABG Base Excess FiO2 Sodium Potassium Chloride Carbon Dioxide Anion Gap BUN Creatinine Est GFR ( Amer) Est GFR (Non-Af Amer) Glucose Calcium Total Bilirubin AST ALT Alkaline Phosphatase Total Protein Albumin Urine Color YELLOW Urine Appearance CLEAR Urine pH 7.0 Ur Specific [place] 1.011 Urine Protein NEGATIVE Urine Glucose (UA) NEGATIVE Urine Ketones NEGATIVE Urine Blood NEGATIVE Urine Nitrite NEGATIVE Ur Leukocyte Esterase NEGATIVE Urine WBC (Auto) 1 Urine RBC (Auto) 1 Stool for White Cells MANY H 09/14/18 09/14/18 04:51 06:15 WBC RBC Hgb Hct MCV MCH MCHC RDW Plt Count Seg Neutrophils % Lymphocytes % Monocytes % Eosinophils % Basophils % Absolute Neutrophils Absolute Lymphocytes Absolute Monocytes Absolute Eosinophils Absolute Basophils Carbonic Acid 1.43 H HCO3/H2CO3 Ratio 24:1 ABG pH 7.48 H ABG pCO2 47.6 H ABG pO2 74.7 L ABG HCO3 34.9 H ABG O2 Saturation 95.8 ABG Base Excess 10.2 FiO2 30% Sodium 140.5 Potassium 4.2 Chloride 97 L Carbon Dioxide 38 H Anion Gap 6 BUN 12 Creatinine 0.39 L Est GFR ( Amer) > 60 Est GFR (Non-Af Amer) > 60 Glucose 92 Calcium 9.1 Total Bilirubin 0.2 AST 24 ALT 14 Alkaline Phosphatase 112 Total Protein 5.6 L Albumin 2.5 L Urine Color Urine Appearance Urine pH Ur Specific [place] Urine Protein Urine Glucose (UA) Urine Ketones Urine Blood Urine Nitrite Ur Leukocyte Esterase Urine WBC (Auto) Urine RBC (Auto) Stool for White Cells 09/09/18 01:40 EST Tracheal Aspirate Gram Stain - Final 09/09/18 01:40 EST Tracheal Aspirate Sputum Culture - Final Mrsa (Meth Resis Staph Aureus) Reduced Normal [place] 09/03/18 09/03/18 09/03/18 17:10 23:40 23:40 Creatine Kinase < 20 L CK-MB (CK-2) 1.41 1.40 Troponin I 0.036 0.033 NT-Pro-B Natriuret Pep 09/04/18 09/04/18 09/04/18 05:50 05:50 12:10 Creatine Kinase < 20 L Cancelled CK-MB (CK-2) 0.98 Troponin I 0.026 NT-Pro-B Natriuret Pep 09/04/18 09/04/18 09/04/18 12:10 18:03 18:03 Creatine Kinase < 20 L CK-MB (CK-2) 0.37 < 0.22 Troponin I 0.021 0.033 NT-Pro-B Natriuret Pep 09/04/18 09/04/18 09/07/18 23:40 23:40 06:15 Creatine Kinase < 20 L CK-MB (CK-2) 0.23 Troponin I 0.029 NT-Pro-B Natriuret Pep 837 Impressions: Chest X-Ray 09/14/18 06:00 IMPRESSION: No significant change. Tip of an endotracheal tube is 2.2 cm from the supa. Consider 3 cm retraction of the endotracheal tube. Assessment & Plan - Diagnosis (1) Supraventricular tachycardia Is this a current diagnosis for this admission?: Yes Plan: Continue on the Cardizem and the digoxin will monitor (2) Acute and chronic respiratory failure ([id number]) Qualifiers: Respiratory failure complication: hypoxia and hypercapnia Qualified Code(s) : J96.21 - Acute and chronic respiratory failure with hypoxia; J96.22 - Acute and chronic respiratory failure with hypercapnia; J96.22 - Acute and chronic respiratory failure with hypercapnia; J96.22 - Acute and chronic respiratory failure with hypercapnia Is this a current diagnosis for this admission?: Yes Plan: New beta-2 agonist, she grew staph aureus from the trach she is getting Zyvox, continue chest PT, Mucomyst, Pulmicort, vent support with weaning process elevate head of bed at 45 degrees. (3) Anemia Qualifiers: Anemia type: iron deficiency Iron deficiency anemia type: unspecified iron deficiency Qualified Code(s): D50.9 - Iron deficiency anemia, unspecified Is this a current diagnosis for this admission?: Yes (4) Hypokalemia Is this a current diagnosis for this admission?: Yes Plan: Potassium has been corrected we will continue to monitor with daily BMP 7. (5) Hypomagnesemia Is this a current diagnosis for this admission?: Yes (6) Septic shock Is this a current diagnosis for this admission?: Yes (7) Leukocytosis Qualifiers: Leukocytosis type: other Qualified Code(s): D72.828 - Other elevated white blood cell count Is this a current diagnosis for this admission?: Yes Plan: And will send a urine analysis, to another stool for C. difficile if patient's urine C. difficile negative we will probably change CVP by the surgical us and send tip for culture and sensitivity. - Time Time Spent with patient: 15-24 minutes Medications reviewed and adjusted accordingly: Yes Anticipated discharge: SNF Within: Other - Inpatient Certification Medical Necessity: Need For IV Fluids, Need For Continuous Telemetry Monitoring , Need for IV Antibiotics Post Hospital Care: D/C Manager [employer] Documentation
[2018-09-14] MEDS: DOCUSATE SODIUM 100 MG/10 ML UDC NG SCH ×2 (09:59→17:42)
[2018-09-14] MEDS: PANTOPRAZOLE SODIUM 40 MG VIAL IV SCH (09:59)
[2018-09-14] MEDS: DIGOXIN INJ 0.5 MG/2 ML AMPULE IV SCH (09:59)
[2018-09-14] MEDS: METOPROLOL TARTRATE 50 MG TABLET NG SCH ×2 (10:00→21:28)
[2018-09-14] MEDS: PRAMIPEXOLE DI-HCL 0.25 MG TABLET NG SCH (10:00)
[2018-09-14] MEDS: ROFLUMILAST 500 MCG TABLET NG SCH (10:00)
[2018-09-14] MEDS: LINEZOLID 600 MG/300 ML RTUPB IV SCH ×2 (10:01→21:29)
[2018-09-14] MEDS: TIOTROPIUM BROMIDE DPI 5 CAP/KIT (18 MCG/CAP) IH SCH (10:01)
--- NOTE | 2018-09-14 18:22 | PDOC PROGRESS REPORT ---
Subjective Progress Note for:: 09/14/18 Subjective:: Patient about the same and has made very little progress. Patient failed a weaning trial. There is no significant change in general condition. Still intubated but more alert. Back on sedation sedation. Patient remains intubated, patient however looks comfortable and in acute distress. Patient is maintaining sinus rhythm. No recurrence of SVT noted. Telemetry shows frequent APCs and occasional VPCs but no sustained cardiac dysrhythmia noted. Medications reviewed. Reason For Visit: SVT Physical Exam Vital Signs: Temp Pulse Resp BP Pulse Ox 99.0 F 88 18 121/51 L 92 09/14/18 14:56 09/14/18 18:00 09/14/18 14:56 09/14/18 14:56 09/14/18 16:12 Intake & Output 09/13/18 09/14/18 09/15/18 06:59 06:59 06:59 Intake Total 3172 2351 1740 Output Total 4613 4200 1775 Balance -1503 -1849 -35 Weight 66.7 kg 65.2 kg Exam: GENERAL: well-nourished and in no acute distress. Patient is intubated and sedated. Orientation cannot be checked HEAD: Atraumatic, normocephalic. EYES: Pupils equal round and reactive to light, extraocular movements could not be checked, sclera anicteric, conjunctiva are normal. ENT: TMs normal, nares patent, oropharynx clear without exudates. Moist mucous membranes. No oral ulcerations or bleeding gums noted NECK: supple without lymphadenopathy or JVD. Trachea is central. No cervical or axillary lymphadenopathy noted. Carotids are 2+ LUNGS: Breath sounds mostly clear to auscultation patient is noted to have bibasal crackles at the extreme bases CHEST: Palpation of the chest wall shows no significant chest wall tenderness or abnormalities. 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 ABDOMEN: Soft, no significant tenderness appreciated, normoactive bowel sounds. No guarding, no rebound. No rigidity noted . No masses appreciated. EXTREMITIES: Pedal pulses are 1-2+, no calf tenderness noted, 1+ pedal edema noted. No clubbing or cyanosis. NEUROLOGICAL: The patient cannot participate in the neurological exam but no facial asymmetry noted. Extremities slightly hypotonic PSYCH: This cannot be evaluated. Patient cannot participate. SKIN: No significant ecchymosis, rash, or signs of pruritus noted. MUSCULOSKELETAL EXAM: No significant joint swelling noted. Patient cannot participate in musculoskeletal exam Results Laboratory Results: 09/14/18 04:51 09/14/18 04:51 09/14/18 09/14/18 09/14/18 04:51 04:51 06:15 WBC 17.2 H RBC 3.81 Hgb 10.6 L Hct 33.2 L MCV 87 MCH 27.7 MCHC 31.8 L RDW 16.9 H Plt Count 390 Seg Neutrophils % Not Reportable Lymphocytes % Not Reportable Monocytes % Not Reportable Eosinophils % Not Reportable Basophils % Not Reportable Absolute Neutrophils Not Reportable Absolute Lymphocytes Not Reportable Absolute Monocytes Not Reportable Absolute Eosinophils Not Reportable Absolute Basophils Not Reportable Carbonic Acid 1.43 H HCO3/H2CO3 Ratio 24:1 ABG pH 7.48 H ABG pCO2 47.6 H ABG pO2 74.7 L ABG HCO3 34.9 H ABG O2 Saturation 95.8 ABG Base Excess 10.2 FiO2 30% Sodium 140.5 Potassium 4.2 Chloride 97 L Carbon Dioxide 38 H Anion Gap 6 BUN 12 Creatinine 0.39 L Est GFR ( Amer) > 60 Est GFR (Non-Af Amer) > 60 Glucose 92 Calcium 9.1 Total Bilirubin 0.2 AST 24 ALT 14 Alkaline Phosphatase 112 Total Protein 5.6 L Albumin 2.5 L 09/12/18 09:10 Montaño Catheter Urine Culture - Final NO GROWTH 2 DAYS 09/03/18 09/03/18 09/03/18 17:10 23:40 23:40 Creatine Kinase < 20 L CK-MB (CK-2) 1.41 1.40 Troponin I 0.036 0.033 NT-Pro-B Natriuret Pep 09/04/18 09/04/18 09/04/18 05:50 05:50 12:10 Creatine Kinase < 20 L Cancelled CK-MB (CK-2) 0.98 Troponin I 0.026 NT-Pro-B Natriuret Pep 09/04/18 09/04/18 09/04/18 12:10 18:03 18:03 Creatine Kinase < 20 L CK-MB (CK-2) 0.37 < 0.22 Troponin I 0.021 0.033 NT-Pro-B Natriuret Pep 09/04/18 09/04/18 09/07/18 23:40 23:40 06:15 Creatine Kinase < 20 L CK-MB (CK-2) 0.23 Troponin I 0.029 NT-Pro-B Natriuret Pep 837 EKG Comments: Shows sinus rhythm with frequent APCs and VPCs. No sustained tachycardia or bradycardia noted. Impressions: Chest X-Ray 09/14/18 06:00 IMPRESSION: No significant change. Tip of an endotracheal tube is 2.2 cm from the supa. Consider 3 cm retraction of the endotracheal tube. Assessment & Plan - Diagnosis (1) Supraventricular tachycardia Is this a current diagnosis for this admission?: Yes (2) Acute and chronic respiratory failure ([id number]) Qualifiers: Respiratory failure complication: hypoxia and hypercapnia Qualified Code(s) : J96.21 - Acute and chronic respiratory failure with hypoxia; J96.22 - Acute and chronic respiratory failure with hypercapnia; J96.22 - Acute and chronic respiratory failure with hypercapnia; J96.22 - Acute and chronic respiratory failure with hypercapnia Is this a current diagnosis for this admission?: Yes (3) Debility, unspecified Is this a current diagnosis for this admission?: Yes (4) Atrial flutter with rapid ventricular response Is this a current diagnosis for this admission?: Yes (5) COPD (chronic obstructive pulmonary disease) Qualifiers: COPD type: unspecified COPD Qualified Code(s): J44.9 - Chronic obstructive pulmonary disease, unspecified Is this a current diagnosis for this admission?: Yes (6) Coronary artery disease Qualifiers: Coronary Disease-Associated Artery/Lesion type: [place] artery [place] vs. transplanted heart: [place] heart Associated angina: without angina Qualified Code(s): I25.10 - Atherosclerotic heart disease of [place] coronary artery without angina pectoris Is this a current diagnosis for this admission?: Yes (7) Hypertension Qualifiers: Hypertension type: essential hypertension Qualified Code(s): I10 - Essential (primary) hypertension Is this a current diagnosis for this admission?: Yes - Notes Notes: No recurrence of supraventricular tachycardia. Recommend continue current regimen. Maintain electrolytes within normal limits. Acute on chronic respiratory failure: Patient being well managed by consulting solution manager and also sheeter helper. General debility: Patient noted to have mild general debility. May consider nutritional evaluation and consultation. Patient has failed extubation and may need to consider tracheostomy but will leave that decision to sheeter helper. No recurrence of supraventricular tachycardia. Recommend continue current regimen. Maintain electrolytes within normal limits. Paroxysmal atrial flutter fibrillation: Continue with chronic anticoagulation and rate control agent as he was doing. Hypertension: This is under satisfactory control. Continue current agent. COPD: Patient and her great management by sheeter helper and company marker. Coronary artery disease: Symptomatically stable without any angina equivalent symptoms or angina being complained about. SVT: There has been no recurrences. Acute on chronic respiratory failure: Patient being well managed by consulting solution manager and also sheeter helper. General debility: Patient noted to have mild general debility. May consider nutritional evaluation and consultation. - Time Time with patient: 15-25 minutes - More than 50% of the time spent coordinating care, discussing management plans with involved caregivers. Management plans discussed with involved personnels. Medical decision making was of moderate to high complexity, patient's has multiple comorbidities. Medications reviewed and adjusted accordingly: Yes
--- NOTE | 2018-09-14 18:22 | PDOC PROGRESS REPORT ---
Subjective Progress Note for:: 09/11/18 Subjective:: Patient about the same and has made very little progress. There is no significant change in general condition. Patient remains intubated, sedated, patient however looks comfortable and in acute distress. Patient is maintaining sinus rhythm. No recurrence of SVT noted. Medications reviewed. Reason For Visit: SVT Physical Exam Vital Signs: Temp Pulse Resp BP Pulse Ox 99.9 F 81 15 127/47 H 90 L 09/11/18 10:43 09/11/18 10:43 09/11/18 10:43 09/11/18 10:43 09/11/18 10:43 Intake & Output 09/10/18 09/11/18 09/12/18 06:59 06:59 06:59 Intake Total 2936 3171 47 Output Total 3970 3635 825 Balance -4612 -464 -298 Weight 72.6 kg 69.1 kg Exam: GENERAL: well-nourished and in no acute distress. Patient is intubated and sedated. Orientation cannot be checked HEAD: Atraumatic, normocephalic. EYES: Pupils equal round and reactive to light, extraocular movements could not be checked, sclera anicteric, conjunctiva are normal. ENT: TMs normal, nares patent, oropharynx clear without exudates. Moist mucous membranes. No oral ulcerations or bleeding gums noted NECK: supple without lymphadenopathy or JVD. Trachea is central. No cervical or axillary lymphadenopathy noted. Carotids are 2+ LUNGS: Breath sounds mostly clear to auscultation patient is noted to have bibasal crackles at the extreme bases CHEST: Palpation of the chest wall shows no significant chest wall tenderness or abnormalities. HEART: [place] MANAGER LAN, No PSH, 2/6 JARAD aortic area, 1/6 valentine systolic murmur mitral area , no rubs or gallops. ABDOMEN: Soft, no significant tenderness appreciated, normoactive bowel sounds. No guarding, no rebound. No rigidity noted . No masses appreciated. EXTREMITIES: Pedal pulses are 1-2+, no calf tenderness noted, 1+ pedal edema noted. No clubbing or cyanosis. NEUROLOGICAL: The patient cannot participate in the neurological exam but no facial asymmetry noted. Extremities slightly hypotonic PSYCH: This cannot be evaluated. Patient cannot participate. SKIN: No significant ecchymosis, rash, or signs of pruritus noted. MUSCULOSKELETAL EXAM: No significant joint swelling noted. Patient cannot participate in musculoskeletal exam Results Laboratory Results: 09/11/18 05:25 09/11/18 05:25 09/11/18 09/11/18 09/11/18 05:25 05:25 05:25 WBC 13.8 H RBC 3.51 L Hgb 10.1 L Hct 30.8 L MCV 88 MCH 28.6 MCHC 32.7 RDW 17.1 H Plt Count 353 Seg Neutrophils % Not Reportable Lymphocytes % Not Reportable Monocytes % Not Reportable Eosinophils % Not Reportable Basophils % Not Reportable Absolute Neutrophils Not Reportable Absolute Lymphocytes Not Reportable Absolute Monocytes Not Reportable Absolute Eosinophils Not Reportable Absolute Basophils Not Reportable Carbonic Acid 1.32 HCO3/H2CO3 Ratio 21:1 ABG pH 7.43 ABG pCO2 43.8 ABG pO2 89.9 ABG HCO3 28.6 H ABG O2 Saturation 97.1 ABG Base Excess 3.9 FiO2 30% Sodium 142.8 Potassium 3.5 L Chloride 106 Carbon Dioxide 34 H Anion Gap 3 L BUN 9 Creatinine 0.40 L Est GFR ( Amer) > 60 Est GFR (Non-Af Amer) > 60 Glucose 111 H Calcium 8.5 Phosphorus 2.7 Magnesium 1.8 09/03/18 09/03/18 09/03/18 17:10 23:40 23:40 Creatine Kinase < 20 L CK-MB (CK-2) 1.41 1.40 Troponin I 0.036 0.033 NT-Pro-B Natriuret Pep 09/04/18 09/04/18 09/04/18 05:50 05:50 12:10 Creatine Kinase < 20 L Cancelled CK-MB (CK-2) 0.98 Troponin I 0.026 NT-Pro-B Natriuret Pep 09/04/18 09/04/18 09/04/18 12:10 18:03 18:03 Creatine Kinase < 20 L CK-MB (CK-2) 0.37 < 0.22 Troponin I 0.021 0.033 NT-Pro-B Natriuret Pep 09/04/18 09/04/18 09/07/18 23:40 23:40 06:15 Creatine Kinase < 20 L CK-MB (CK-2) 0.23 Troponin I 0.029 NT-Pro-B Natriuret Pep 837 Impressions: Chest X-Ray 09/11/18 06:00 IMPRESSION: No significant change. Assessment & Plan - Diagnosis (1) Supraventricular tachycardia Is this a current diagnosis for this admission?: Yes (2) Acute and chronic respiratory failure ([id number]) Qualifiers: Respiratory failure complication: hypoxia and hypercapnia Qualified Code(s) : J96.21 - Acute and chronic respiratory failure with hypoxia; J96.22 - Acute and chronic respiratory failure with hypercapnia; J96.22 - Acute and chronic respiratory failure with hypercapnia; J96.22 - Acute and chronic respiratory failure with hypercapnia Is this a current diagnosis for this admission?: Yes (3) Atrial flutter with rapid ventricular response Is this a current diagnosis for this admission?: Yes (4) COPD (chronic obstructive pulmonary disease) Qualifiers: COPD type: unspecified COPD Qualified Code(s): J44.9 - Chronic obstructive pulmonary disease, unspecified Is this a current diagnosis for this admission?: Yes (5) Coronary artery disease Qualifiers: Coronary Disease-Associated Artery/Lesion type: [place] artery [place] vs. transplanted heart: [place] heart Associated angina: without angina Qualified Code(s): I25.10 - Atherosclerotic heart disease of [place] coronary artery without angina pectoris Is this a current diagnosis for this admission?: Yes (6) Hypertension Qualifiers: Hypertension type: essential hypertension Qualified Code(s): I10 - Essential (primary) hypertension Is this a current diagnosis for this admission?: Yes - Notes Notes: No recurrence of supraventricular tachycardia. Recommend continue current regimen. Maintain electrolytes within normal limits. Paroxysmal atrial flutter fibrillation: Continue with chronic anticoagulation and rate control agent as he was doing. Hypertension: This is under satisfactory control. Continue current agent. COPD: Patient and her great management by encephalographer and buying agent. Coronary artery disease: Symptomatically stable without any angina equivalent symptoms or angina being complained about. SVT: There has been no recurrences. Acute on chronic respiratory failure: Patient being well managed by mechanical systems design engineer and also encephalographer. General debility: Patient noted to have mild general debility. May consider nutritional evaluation and consultation. - Time Time with patient: 15-25 minutes - CODE STATUS was discussed, patient remains full code. Surrogate decision-maker patient's daughter Suni Fernández. Multiple medical problems were addressed. More than 50% of the time spent coordinating care, discussing management plans with involved caregivers. Management plans discussed with involved personnels. Medical decision making was of moderate to high complexity, patient's has multiple comorbidities. Medications reviewed and adjusted accordingly: Yes
[2018-09-14] MEDS: MONTELUKAST SODIUM 10 MG TABLET NG SCH (21:27)
[2018-09-15 04:08] LABS: ABSOLUTE EOSINOPHILS # (AUTO) 0.2 10^3/uL (0.0-0.6); ABSOLUTE LYMPHOCYTES (AUTO) 1.9 10^3/uL (0.5-4.7); ABSOLUTE MONOCYTES (AUTO) 1.3 10^3/uL (0.1-1.4); ABSOLUTE NEUT (AUTO) 11.8 10^3/uL (1.7-8.2); BASOPHILS % (AUTO) 0.3 % (0-2); EOSINOPHILS % (AUTO) 1.2 % (0-6); HEMATOCRIT 28.7 % (36.0-47.0); HEMOGLOBIN 9.5 g/dL (12.0-15.5); LYMPHOCYTES % (AUTO) 12.4 % (13-45); MEAN CORPUSCULAR HEMOGLOBIN 28.7 pg (27.0-33.4); MEAN CORPUSCULAR VOLUME 87 fl (80-97); MONOCYTES % (AUTO) 8.6 % (3-13); PLATELET COUNT 475 10^3/uL (150-450); RED CELL DISTRIBUTION WIDTH 16.9 % (11.5-14.0); SEGMENTED NEUTROPHILS % (AUTO) 77.5 % (42-78); TOTAL CELLS COUNTED % (AUTO) 100 %; WHITE BLOOD COUNT 15.2 10^3/uL (4.0-10.5)
[2018-09-15 04:42] LABS: ALANINE AMINOTRANSFERASE 18 U/L (9-52); ALBUMIN 2.2 g/dL (3.5-5.0); ALKALINE PHOSPHATASE 123 U/L (38-126); ANION GAP 7 (5-19); ASPARTATE AMINO TRANSFERASE 15 U/L (14-36); BILIRUBIN,TOTAL < 0.1 mg/dL (0.2-1.3); BLOOD UREA NITROGEN 11 mg/dL (7-20); CALCIUM 8.9 mg/dL (8.4-10.2); CARBON DIOXIDE 35 mmol/L (22-30); CHLORIDE 99 mmol/L (98-107); GLUCOSE 110 mg/dL (75-110); POTASSIUM 4.2 mmol/L (3.6-5.0); TOTAL PROTEIN 4.8 g/dL (6.3-8.2); TRIGLYCERIDES 85 mg/dL (<150)
[2018-09-15 04:53] LABS: ARTERIAL BLOOD H2CO3 1.63 mmol/L (1.05-1.35); ARTERIAL BLOOD HCO3 37.5 mmol/L (20-24); ARTERIAL BLOOD PCO2 54.1 mmHg (35-45); ARTERIAL BLOOD PH 7.46 (7.35-7.45); ARTERIAL BLOOD PO2 68.3 mmHg (80-100); ARTERIAL BLOOD TOTAL CO2 39.2 mmol/L (21-25)
[2018-09-15 04:54] LABS: ARTERIAL BLOOD BASE EXCESS 11.9 mmol/L; ARTERIAL BLOOD O2 SATURATION 94.2 % (94-98)
[2018-09-15 04:55] LABS: ARTERIAL BLOOD FIO2 30%
[2018-09-15] MEDS: PROPOFOL 1,000 MG/100 ML INFUS..BTL IV PRN ×3 (05:08→20:33)
[2018-09-15] MEDS: DILTIAZEM HCL 30 MG TABLET NG SCH ×3 (05:08→21:08)
[2018-09-15] MEDS: 1/2 NORMAL SALINE 1,000 ML IV PRN ×2 (05:09→18:28)
--- NOTE | 2018-09-15 06:31 | RADIOLOGY REPORT (SQ) ---
EXAM DESCRIPTION: XR CHEST 1 VIEW COMPLETED DATE/TME: 09/15/2018 06:00 CLINICAL HISTORY: 72 years Female, resp failure COMPARISON: One day prior. NUMBER OF VIEWS/TECHNIQUE: 1/AP FINDINGS: Clear lungs of adequate volume, and normal cardiac silhouette. Small left lower retrocardiac opacity. Tip of an endotracheal tube is 3.2 cm from the supa. Likely adequate appearing enteric tube partially obscured. No pneumothorax. Stable bony thorax. IMPRESSION: No significant change.
[2018-09-15] MEDS: BUDESONIDE NEB 0.5 MG/2 ML AMPUL NEB SCH ×2 (08:06→20:06)
[2018-09-15] MEDS: LEVALBUTEROL HCL NEB 0.63 MG/3 ML AMPUL NEB PRN (08:06)
[2018-09-15] MEDS: TIOTROPIUM BROMIDE DPI 5 CAP/KIT (18 MCG/CAP) IH SCH (09:11)
[2018-09-15] MEDS: PRAMIPEXOLE DI-HCL 0.25 MG TABLET NG SCH (09:24)
[2018-09-15] MEDS: DIGOXIN INJ 0.5 MG/2 ML AMPULE IV SCH (09:24)
[2018-09-15] MEDS: METOPROLOL TARTRATE 50 MG TABLET NG SCH ×2 (09:24→21:07)
[2018-09-15] MEDS: PANTOPRAZOLE SODIUM 40 MG VIAL IV SCH (09:24)
[2018-09-15] MEDS: LINEZOLID 600 MG/300 ML RTUPB IV SCH ×2 (09:25→21:09)
[2018-09-15] MEDS: DOCUSATE SODIUM 100 MG/10 ML UDC NG SCH ×2 (09:25→17:03)
[2018-09-15] MEDS: ROFLUMILAST 500 MCG TABLET NG SCH (09:25)
--- NOTE | 2018-09-15 10:00 | PDOC PROGRESS REPORT ---
Subjective Progress Note for:: 09/15/18 Subjective:: Patient is new to me. I am covering for Dr. Bolden. Patient admitted about 12 days ago with chief complaint of shortness of breath and palpitation. Patient found to have SVT and per Dr. Ho it is atrial flutter with rapid ventricular response. Patient also found to have acute on chronic hypoxic hypercarbic respiratory failure which required intubation. This morning I seen patient lying in bed and she remained intubated. Her labs shows leukocytosis but is not new for this patient has long-standing leukocytosis which is unexplained. Reason For Visit: SVT Physical Exam Vital Signs: Temp Pulse Resp BP Pulse Ox 99.3 F 97 14 128/61 H 92 09/15/18 08:00 09/15/18 08:07 09/15/18 08:07 09/15/18 07:59 09/15/18 08:07 Intake & Output 09/14/18 09/15/18 09/16/18 06:59 06:59 06:59 Intake Total 2351 3571 43 Output Total 4200 3175 950 Balance -1849 396 -907 Weight 65.2 kg 65.2 kg General appearance: PRESENT: no acute distress Head exam: PRESENT: atraumatic Mouth exam: PRESENT: dry mucosa Neck exam: ABSENT: carotid bruit, JVD, lymphadenopathy, thyromegaly Respiratory exam: PRESENT: rales, rhonchi, wheezes Cardiovascular exam: PRESENT: irregular rhythm GI/Abdominal exam: PRESENT: normal bowel sounds, soft. ABSENT: distended, guarding, mass, organolmegaly, rebound, tenderness Results Laboratory Results: 09/15/18 04:01 09/15/18 04:01 09/15/18 09/15/18 09/15/18 04:01 04:01 04:35 WBC 15.2 H RBC 3.30 L Hgb 9.5 L Hct 28.7 L MCV 87 MCH 28.7 MCHC 33.0 RDW 16.9 H Plt Count 475 H Seg Neutrophils % 77.5 Lymphocytes % 12.4 L Monocytes % 8.6 Eosinophils % 1.2 Basophils % 0.3 Absolute Neutrophils 11.8 H Absolute Lymphocytes 1.9 Absolute Monocytes 1.3 Absolute Eosinophils 0.2 Absolute Basophils 0.0 Carbonic Acid 1.63 H HCO3/H2CO3 Ratio 23:1 ABG pH 7.46 H ABG pCO2 54.1 H ABG pO2 68.3 L ABG HCO3 37.5 H ABG O2 Saturation 94.2 ABG Base Excess 11.9 FiO2 30% Sodium 141.0 Potassium 4.2 Chloride 99 Carbon Dioxide 35 H Anion Gap 7 BUN 11 Creatinine 0.33 L Est GFR ( Amer) > 60 Est GFR (Non-Af Amer) > 60 Glucose 110 Calcium 8.9 Magnesium 2.0 Total Bilirubin < 0.1 L AST 15 ALT 18 Alkaline Phosphatase 123 Total Protein 4.8 L Albumin 2.2 L Triglycerides 85 09/12/18 09:10 Montaño Catheter Urine Culture - Final NO GROWTH 2 DAYS 09/03/18 09/03/18 09/03/18 17:10 23:40 23:40 Creatine Kinase < 20 L CK-MB (CK-2) 1.41 1.40 Troponin I 0.036 0.033 NT-Pro-B Natriuret Pep 09/04/18 09/04/18 09/04/18 05:50 05:50 12:10 Creatine Kinase < 20 L Cancelled CK-MB (CK-2) 0.98 Troponin I 0.026 NT-Pro-B Natriuret Pep 09/04/18 09/04/18 09/04/18 12:10 18:03 18:03 Creatine Kinase < 20 L CK-MB (CK-2) 0.37 < 0.22 Troponin I 0.021 0.033 NT-Pro-B Natriuret Pep 09/04/18 09/04/18 09/07/18 23:40 23:40 06:15 Creatine Kinase < 20 L CK-MB (CK-2) 0.23 Troponin I 0.029 NT-Pro-B Natriuret Pep 837 Impressions: Chest X-Ray 09/15/18 06:00 IMPRESSION: No significant change. Assessment & Plan - Diagnosis (1) Septic shock Is this a current diagnosis for this admission?: Yes Plan: Patient's tracheal aspirate grew MRSA and patient has been on Zyvox. (2) Hypokalemia Is this a current diagnosis for this admission?: Yes Plan: Has resolved (3) Hypomagnesemia Is this a current diagnosis for this admission?: Yes Plan: Has resolved (4) Acute and chronic respiratory failure with hypercapnia Is this a current diagnosis for this admission?: Yes Plan: Patient is on mechanical ventilation. Dr. Brewer is on board. (5) Leukocytosis Qualifiers: Leukocytosis type: other Qualified Code(s): D72.828 - Other elevated white blood cell count Is this a current diagnosis for this admission?: Yes Plan: Chronic and unexplained. (6) Atrial flutter with rapid ventricular response Is this a current diagnosis for this admission?: Yes Plan: Now rate controlled
[2018-09-15] MEDS: ACETAMINOPHEN 650 MG SUPP.RECT PR PRN (21:08)
[2018-09-15] MEDS: MONTELUKAST SODIUM 10 MG TABLET NG SCH (21:08)
[2018-09-16] MEDS: PROPOFOL 1,000 MG/100 ML INFUS..BTL IV PRN ×3 (03:13→19:16)
[2018-09-16 04:43] LABS: ARTERIAL BLOOD BASE EXCESS 10.2 mmol/L; ARTERIAL BLOOD FIO2 30%; ARTERIAL BLOOD H2CO3 1.47 mmol/L (1.05-1.35); ARTERIAL BLOOD O2 SATURATION 96.1 % (94-98); ARTERIAL BLOOD PCO2 48.9 mmHg (35-45); ARTERIAL BLOOD PH 7.47 (7.35-7.45); ARTERIAL BLOOD TOTAL CO2 36.5 mmol/L (21-25)
[2018-09-16] MEDS: DILTIAZEM HCL 30 MG TABLET NG SCH ×3 (05:24→21:53)
[2018-09-16] MEDS: 1/2 NORMAL SALINE 1,000 ML IV PRN ×2 (05:54→17:57)
--- NOTE | 2018-09-16 07:35 | RADIOLOGY REPORT (SQ) ---
EXAM DESCRIPTION: XR CHEST 1 VIEW COMPLETED DATE/TME: 09/16/2018 06:00 CLINICAL HISTORY: 72 years Female, pneumonia COMPARISON: One day prior. NUMBER OF VIEWS/TECHNIQUE: 1/AP FINDINGS: Mild interstitial markings, increased lung volume. Adequate appearing endotracheal tube. Likely adequate appearing enteric tube partially obscured. Mildly enlarged cardiac silhouette. No pneumothorax. Stable bony thorax. IMPRESSION: No significant change.
[2018-09-16] MEDS: BUDESONIDE NEB 0.5 MG/2 ML AMPUL NEB SCH ×2 (07:55→19:51)
--- NOTE | 2018-09-16 10:58 | PDOC PROGRESS REPORT ---
Subjective Progress Note for:: 09/16/18 Subjective:: Patient remained intubated and on full mechanical support. Her vital signs are acceptable. Reason For Visit: SVT Physical Exam Vital Signs: Temp Pulse Resp BP Pulse Ox 98.1 F 81 14 119/54 L 96 09/16/18 08:00 09/16/18 08:00 09/16/18 08:00 09/16/18 08:00 09/16/18 08:00 Intake & Output 09/15/18 09/16/18 09/17/18 06:59 06:59 06:59 Intake Total 3571 3612 Output Total 3175 3025 440 Balance 396 587 -440 Weight 65.2 kg 64.8 kg General appearance: PRESENT: no acute distress Head exam: PRESENT: atraumatic Mouth exam: PRESENT: dry mucosa Respiratory exam: PRESENT: rales, rhonchi, wheezes Cardiovascular exam: PRESENT: irregular rhythm. ABSENT: rubs GI/Abdominal exam: PRESENT: normal bowel sounds, soft. ABSENT: distended, guarding, mass, organolmegaly, rebound, tenderness Results Laboratory Results: 09/15/18 04:01 09/15/18 04:01 09/16/18 04:14 Carbonic Acid 1.47 H HCO3/H2CO3 Ratio 23:1 ABG pH 7.47 H ABG pCO2 48.9 H ABG pO2 78.0 L ABG HCO3 35.0 H ABG O2 Saturation 96.1 ABG Base Excess 10.2 FiO2 30% 09/03/18 09/03/18 09/03/18 17:10 23:40 23:40 Creatine Kinase < 20 L CK-MB (CK-2) 1.41 1.40 Troponin I 0.036 0.033 NT-Pro-B Natriuret Pep 09/04/18 09/04/18 09/04/18 05:50 05:50 12:10 Creatine Kinase < 20 L Cancelled CK-MB (CK-2) 0.98 Troponin I 0.026 NT-Pro-B Natriuret Pep 09/04/18 09/04/18 09/04/18 12:10 18:03 18:03 Creatine Kinase < 20 L CK-MB (CK-2) 0.37 < 0.22 Troponin I 0.021 0.033 NT-Pro-B Natriuret Pep 09/04/18 09/04/18 09/07/18 23:40 23:40 06:15 Creatine Kinase < 20 L CK-MB (CK-2) 0.23 Troponin I 0.029 NT-Pro-B Natriuret Pep 837 Impressions: Chest X-Ray 09/16/18 06:00 IMPRESSION: No significant change. Assessment & Plan - Diagnosis (1) Septic shock Is this a current diagnosis for this admission?: Yes Plan: Patient's tracheal aspirate grew MRSA and patient has been on Zyvox. (2) Hypokalemia Is this a current diagnosis for this admission?: Yes Plan: Has resolved (3) Hypomagnesemia Is this a current diagnosis for this admission?: Yes Plan: Has resolved (4) Acute and chronic respiratory failure with hypercapnia Is this a current diagnosis for this admission?: Yes Plan: Patient is on mechanical ventilation. Dr. Brewer is on board. (5) Leukocytosis Qualifiers: Leukocytosis type: other Qualified Code(s): D72.828 - Other elevated white blood cell count Is this a current diagnosis for this admission?: Yes Plan: Chronic and unexplained. (6) Atrial flutter with rapid ventricular response Is this a current diagnosis for this admission?: Yes Plan: Now rate controlled
[2018-09-16] MEDS: LINEZOLID 600 MG/300 ML RTUPB IV SCH ×2 (12:09→21:52)
[2018-09-16] MEDS: ROFLUMILAST 500 MCG TABLET NG SCH (12:09)
[2018-09-16] MEDS: METOPROLOL TARTRATE 50 MG TABLET NG SCH ×2 (12:09→21:53)
[2018-09-16] MEDS: PRAMIPEXOLE DI-HCL 0.25 MG TABLET NG SCH (12:09)
[2018-09-16] MEDS: PANTOPRAZOLE SODIUM 40 MG VIAL IV SCH (12:10)
[2018-09-16] MEDS: DIGOXIN INJ 0.5 MG/2 ML AMPULE IV SCH (12:12)
[2018-09-16] MEDS: DOCUSATE SODIUM 100 MG/10 ML UDC NG SCH ×2 (12:12→17:29)
[2018-09-16] MEDS: TIOTROPIUM BROMIDE DPI 5 CAP/KIT (18 MCG/CAP) IH SCH (12:23)
--- NOTE | 2018-09-16 12:57 | PDOC PROGRESS REPORT ---
Subjective Progress Note for:: 09/16/18 Subjective:: Patient about the same and has made very little progress. There is no significant change in general condition. Patient remains intubated, sedated, patient however looks comfortable and in acute distress. Patient is maintaining sinus rhythm. No recurrence of SVT noted. Medications reviewed. Reason For Visit: SVT Physical Exam Vital Signs: Temp Pulse Resp BP Pulse Ox 98.2 F 110 H 16 126/86 H 95 09/16/18 12:00 09/16/18 12:00 09/16/18 12:00 09/16/18 12:00 09/16/18 12:00 Intake & Output 09/15/18 09/16/18 09/17/18 06:59 06:59 06:59 Intake Total 3571 3912 100 Output Total 3175 3025 1360 Balance 396 887 -1260 Weight 65.2 kg 64.8 kg Exam: GENERAL: well-nourished and in no acute distress. Patient is intubated and sedated. Orientation cannot be checked HEAD: Atraumatic, normocephalic. EYES: Pupils equal round and reactive to light, extraocular movements could not be checked, sclera anicteric, conjunctiva are normal. ENT: TMs normal, nares patent, oropharynx clear without exudates. Moist mucous membranes. No oral ulcerations or bleeding gums noted NECK: supple without lymphadenopathy or JVD. Trachea is central. No cervical or axillary lymphadenopathy noted. Carotids are 2+ LUNGS: Breath sounds mostly clear to auscultation patient is noted to have bibasal crackles at the extreme bases CHEST: Palpation of the chest wall shows no significant chest wall tenderness or abnormalities. HEART: [place] OPERATIONS ASST, No PSH, 2/6 JARAD aortic area, 1/6 valentine systolic murmur mitral area , no rubs or gallops. ABDOMEN: Soft, no significant tenderness appreciated, normoactive bowel sounds. No guarding, no rebound. No rigidity noted . No masses appreciated. EXTREMITIES: Pedal pulses are 1-2+, no calf tenderness noted, 1+ pedal edema noted. No clubbing or cyanosis. NEUROLOGICAL: The patient cannot participate in the neurological exam but no facial asymmetry noted. Extremities slightly hypotonic PSYCH: This cannot be evaluated. Patient cannot participate. SKIN: No significant ecchymosis, rash, or signs of pruritus noted. MUSCULOSKELETAL EXAM: No significant joint swelling noted. Patient cannot participate in musculoskeletal exam Results Laboratory Results: 09/15/18 04:01 09/15/18 04:01 09/16/18 04:14 Carbonic Acid 1.47 H HCO3/H2CO3 Ratio 23:1 ABG pH 7.47 H ABG pCO2 48.9 H ABG pO2 78.0 L ABG HCO3 35.0 H ABG O2 Saturation 96.1 ABG Base Excess 10.2 FiO2 30% 09/03/18 09/03/18 09/03/18 17:10 23:40 23:40 Creatine Kinase < 20 L CK-MB (CK-2) 1.41 1.40 Troponin I 0.036 0.033 NT-Pro-B Natriuret Pep 09/04/18 09/04/18 09/04/18 05:50 05:50 12:10 Creatine Kinase < 20 L Cancelled CK-MB (CK-2) 0.98 Troponin I 0.026 NT-Pro-B Natriuret Pep 09/04/18 09/04/18 09/04/18 12:10 18:03 18:03 Creatine Kinase < 20 L CK-MB (CK-2) 0.37 < 0.22 Troponin I 0.021 0.033 NT-Pro-B Natriuret Pep 09/04/18 09/04/18 09/07/18 23:40 23:40 06:15 Creatine Kinase < 20 L CK-MB (CK-2) 0.23 Troponin I 0.029 NT-Pro-B Natriuret Pep 837 Impressions: Chest X-Ray 09/16/18 06:00 IMPRESSION: No significant change. Assessment & Plan - Diagnosis (1) Supraventricular tachycardia Is this a current diagnosis for this admission?: Yes (2) Acute and chronic respiratory failure ([id number]) Qualifiers: Respiratory failure complication: hypoxia and hypercapnia Qualified Code(s) : J96.21 - Acute and chronic respiratory failure with hypoxia; J96.22 - Acute and chronic respiratory failure with hypercapnia; J96.22 - Acute and chronic respiratory failure with hypercapnia; J96.22 - Acute and chronic respiratory failure with hypercapnia Is this a current diagnosis for this admission?: Yes (3) COPD (chronic obstructive pulmonary disease) Qualifiers: COPD type: unspecified COPD Qualified Code(s): J44.9 - Chronic obstructive pulmonary disease, unspecified Is this a current diagnosis for this admission?: Yes (4) Atrial flutter with rapid ventricular response Is this a current diagnosis for this admission?: Yes (5) Debility, unspecified Is this a current diagnosis for this admission?: Yes (6) Hypertension Qualifiers: Hypertension type: essential hypertension Qualified Code(s): I10 - Essential (primary) hypertension Is this a current diagnosis for this admission?: Yes - Notes Notes: No recurrence of supraventricular tachycardia. Recommend continue current regimen. Maintain electrolytes within normal limits. Paroxysmal atrial flutter fibrillation: Continue with chronic anticoagulation and rate control agent as he was doing. Hypertension: This is under satisfactory control. Continue current agent. COPD: Patient and her great management by button pusher and glass enamel mixer. Coronary artery disease: Symptomatically stable without any angina equivalent symptoms or angina being complained about. SVT: There has been no recurrences. Acute on chronic respiratory failure: Patient being well managed by oncology rep specialist and also button pusher. General debility: Patient noted to have mild general debility. May consider nutritional evaluation and consultation. May need to consider patient for tracheostomy. - Time Time with patient: 15-25 minutes - CODE STATUS was discussed, patient remains full code. Surrogate decision-maker unchanged. Multiple medical problems were addressed. More than 50% of the time spent coordinating care, discussing management plans with involved caregivers. Management plans discussed with involved personnels. Medical decision making was of moderate to high complexity , patient's has multiple comorbidities. Medications reviewed and adjusted accordingly: Yes
[2018-09-16] MEDS: APIXABAN 2.5 MG TABLET NG SCH (17:29)
[2018-09-16] MEDS: MONTELUKAST SODIUM 10 MG TABLET NG SCH (21:53)
[2018-09-17] MEDS: PROPOFOL 1,000 MG/100 ML INFUS..BTL IV PRN ×3 (03:56→23:43)
[2018-09-17 04:01] LABS: ABSOLUTE BASOPHILS # (AUTO) 0.1 10^3/uL (0.0-0.2); ABSOLUTE LYMPHOCYTES (AUTO) 1.4 10^3/uL (0.5-4.7); ABSOLUTE MONOCYTES (AUTO) 1.7 10^3/uL (0.1-1.4); ABSOLUTE NEUT (AUTO) 13.4 10^3/uL (1.7-8.2); BASOPHILS % (AUTO) 0.6 % (0-2); EOSINOPHILS % (AUTO) 0.1 % (0-6); HEMATOCRIT 27.7 % (36.0-47.0); HEMOGLOBIN 8.9 g/dL (12.0-15.5); LYMPHOCYTES % (AUTO) 8.5 % (13-45); MEAN CORPUSCULAR HEMOGLOBIN 27.8 pg (27.0-33.4); MEAN CORPUSCULAR HGB CONC 32.2 g/dL (32.0-36.0); MEAN CORPUSCULAR VOLUME 86 fl (80-97); MONOCYTES % (AUTO) 10.1 % (3-13); PLATELET COUNT 439 10^3/uL (150-450); RED BLOOD COUNT 3.21 10^6/uL (3.72-5.28); RED CELL DISTRIBUTION WIDTH 16.8 % (11.5-14.0); SEGMENTED NEUTROPHILS % (AUTO) 80.7 % (42-78); TOTAL CELLS COUNTED % (AUTO) 100 %; WHITE BLOOD COUNT 16.6 10^3/uL (4.0-10.5)
[2018-09-17 04:22] LABS: ALANINE AMINOTRANSFERASE 34 U/L (9-52); ALBUMIN 2.2 g/dL (3.5-5.0); ALKALINE PHOSPHATASE 271 U/L (38-126); ANION GAP 8 (5-19); ASPARTATE AMINO TRANSFERASE 37 U/L (14-36); BILIRUBIN,DIRECT 0.3 mg/dL (0.0-0.4); BILIRUBIN,TOTAL 0.3 mg/dL (0.2-1.3); BLOOD UREA NITROGEN 9 mg/dL (7-20); CALCIUM 8.6 mg/dL (8.4-10.2); CARBON DIOXIDE 32 mmol/L (22-30); CHLORIDE 97 mmol/L (98-107); GLUCOSE 123 mg/dL (75-110); POTASSIUM 4.3 mmol/L (3.6-5.0); SODIUM 137.1 mmol/L (137-145); TOTAL PROTEIN 4.9 g/dL (6.3-8.2)
[2018-09-17 06:27] LABS: ARTERIAL BLOOD BASE EXCESS 10.7 mmol/L; ARTERIAL BLOOD H2CO3 1.53 mmol/L (1.05-1.35); ARTERIAL BLOOD HCO3 35.7 mmol/L (20-24); ARTERIAL BLOOD O2 SATURATION 96.9 % (94-98); ARTERIAL BLOOD PCO2 50.7 mmHg (35-45); ARTERIAL BLOOD PH 7.47 (7.35-7.45); ARTERIAL BLOOD PO2 86.4 mmHg (80-100); ARTERIAL BLOOD TOTAL CO2 37.3 mmol/L (21-25)
[2018-09-17] MEDS: DILTIAZEM HCL 30 MG TABLET NG SCH (06:36)
[2018-09-17] MEDS: 1/2 NORMAL SALINE 1,000 ML IV PRN ×2 (06:37→17:46)
[2018-09-17 06:40] LABS: ARTERIAL BLOOD FIO2 30%
[2018-09-17] MEDS: LEVALBUTEROL HCL NEB 0.63 MG/3 ML AMPUL NEB PRN ×2 (08:21→20:18)
[2018-09-17] MEDS: FENTANYL CITRATE INJ/PF 100 MCG/2 ML AMPUL IV PRN (08:21)
[2018-09-17] MEDS: BUDESONIDE NEB 0.5 MG/2 ML AMPUL NEB SCH ×2 (08:21→20:18)
--- NOTE | 2018-09-17 08:29 | RADIOLOGY REPORT (SQ) ---
EXAM DESCRIPTION: CHEST SINGLE VIEW COMPLETED DATE/TIME: 09/17/2018 7:51 am REASON FOR STUDY: resp failure COMPARISON: Chest films 09/07/2018, 09/09/2018, and 09/12/2018, 09/13/2018, 09/14/2018, 09/15/2018, 09/16 EXAM PARAMETERS: NUMBER OF VIEWS: One view. TECHNIQUE: Single frontal radiographic view of the chest acquired. RADIATION DOSE: NA LIMITATIONS: None. FINDINGS: LUNGS AND PLEURA: Minimal right retrocardiac airspace disease likely atelectasis. Lungs a re otherwise well inflated and clear. No pleural effusion. No pneumothorax. MEDIASTINUM AND HILAR STRUCTURES: No masses. Contour normal. HEART AND VASCULAR STRUCTURES: Heart normal in size. Normal vasculature. BONES: No acute findings. HARDWARE: Endotracheal tube tip 3 cm above the supa. Nasogastric tube tip and side port below the hemidiaphragms. Bold OTHER: No other significant finding. IMPRESSION: Endotracheal and nasogastric tubes in good positioning. Minimal right basilar atelectasis TECHNICAL DOCUMENTATION: JOB ID: [id number] [employer]- All Rights Reserved Reading location - IP/workstation name: [email or web address]
[2018-09-17] MEDS: DOCUSATE SODIUM 100 MG/10 ML UDC NG SCH ×2 (09:15→17:24)
[2018-09-17] MEDS: TIOTROPIUM BROMIDE DPI 5 CAP/KIT (18 MCG/CAP) IH SCH (09:17)
[2018-09-17] MEDS: PANTOPRAZOLE SODIUM 40 MG VIAL IV SCH (09:25)
[2018-09-17] MEDS: METOPROLOL TARTRATE 50 MG TABLET NG SCH ×2 (09:25→21:16)
[2018-09-17] MEDS: ROFLUMILAST 500 MCG TABLET NG SCH (09:28)
[2018-09-17] MEDS: PRAMIPEXOLE DI-HCL 0.25 MG TABLET NG SCH (09:28)
[2018-09-17] MEDS: LINEZOLID 600 MG/300 ML RTUPB IV SCH ×2 (09:29→21:16)
[2018-09-17] MEDS ORDERED: DILTIAZEM HCL 30 MG TABLET NG ONE (09:30)
--- NOTE | 2018-09-17 09:52 | RADIOLOGY REPORT (SQ) ---
EXAM DESCRIPTION: KUB/ABDOMEN (SINGLE VIEW) COMPLETED DATE/TIME: 09/17/2018 9:41 am REASON FOR STUDY: DISTENDED ABDOMEN COMPARISON: None. NUMBER OF VIEWS: One view. TECHNIQUE: Supine radiographic image of the abdomen acquired. LIMITATIONS: None. FINDINGS: BOWEL GAS PATTERN: Normal bowel gas pattern. No dilated loops. CALCIFICATIONS: No suspicious calcifications. SOFT TISSUES: No gross mass or suggestion of organomegaly. HARDWARE: Partially visualized nasogastric tube, tip in the region of the stomach. Prior cholecyste ctomy. None in the abdomen. BONES: Marked rotary levoconvex scoliosis of the lumbar spine. Degenerative changes at the hips. N o acute fracture. OTHER: Atherosclerotic changes involving the abdominal aorta. Rectal device noted. IMPRESSION: 1. NO RADIOGRAPHIC EVIDENCE FOR ACUTE ABDOMINAL DISEASE. 2. Partially visualized nasogastric tube, tip in the region of the stomach. TECHNICAL DOCUMENTATION: JOB ID: [id number] [employer]- All Rights Reserved Reading location - IP/workstation name: [email or web address]
[2018-09-17 10:43] LABS: INTERNATIONAL RATION (INR) 1.13; PROTHROMBIN TIME 15.1 SEC (11.4-15.4)
[2018-09-17 10:44] LABS: PARTIAL THROMBOPLASTIN TIME 39.2 SEC (23.5-35.8)
[2018-09-17] MEDS: DIGOXIN INJ 0.5 MG/2 ML AMPULE IV SCH (11:36)
[2018-09-17] MEDS: CLOTRIMAZOLE/BETAMETHASONE DIP CREAM 15 GM TOP SCH ×2 (11:48→17:38)
--- NOTE | 2018-09-17 11:51 | PDOC PROGRESS REPORT ---
Subjective Progress Note for:: 09/17/18 Subjective:: Patient is awake, afebrile she is still on mechanical ventilation secretions are minimal she is tolerating her feedings, multiple attempts at weaning have become a next successful because she has a poor negative inspiratory pressure. Reason For Visit: SVT Physical Exam Vital Signs: Temp Pulse Resp BP Pulse Ox 99.0 F 88 20 124/55 L 95 09/17/18 10:00 09/17/18 10:00 09/17/18 10:00 09/17/18 10:00 09/17/18 11:29 Intake & Output 09/16/18 09/17/18 09/18/18 06:59 06:59 06:59 Intake Total 3912 3531 779 Output Total 3025 3635 600 Balance 887 -104 179 Weight 64.8 kg 63.9 kg General appearance: PRESENT: no acute distress, well-developed, well-nourished Head exam: PRESENT: atraumatic, normocephalic Eye exam: PRESENT: conjunctiva pink, EOMI, PERRLA. ABSENT: scleral icterus Ear exam: PRESENT: normal external ear exam Mouth exam: PRESENT: moist, tongue midline Neck exam: PRESENT: full ROM. ABSENT: carotid bruit, JVD, lymphadenopathy, thyromegaly Respiratory exam: PRESENT: clear to auscultation jaime Cardiovascular exam: PRESENT: RRR, systolic murmur. ABSENT: diastolic murmur, rubs Murmur grade: 2 Pulses: PRESENT: normal dorsalis pedis pul, +2 pedal pulses bilateral GI/Abdominal exam: PRESENT: normal bowel sounds, soft. ABSENT: distended, guarding, mass, organolmegaly, rebound, tenderness Rectal exam: PRESENT: deferred Extremities exam: PRESENT: full ROM Musculoskeletal exam: PRESENT: other Additional comments: Patient is on a ventilator bedbound. Neurological exam: PRESENT: alert, awake, oriented to person, oriented to place , oriented to time, oriented to situation, CN II-XII grossly intact. ABSENT: motor sensory deficit Psychiatric exam: PRESENT: appropriate affect, normal mood. ABSENT: homicidal ideation, suicidal ideation Skin exam: PRESENT: dry, intact, warm. ABSENT: cyanosis, rash Results Laboratory Results: 09/17/18 03:51 09/17/18 03:51 09/17/18 09/17/18 09/17/18 03:51 03:51 06:00 WBC 16.6 H RBC 3.21 L Hgb 8.9 L Hct 27.7 L MCV 86 MCH 27.8 MCHC 32.2 RDW 16.8 H Plt Count 439 Seg Neutrophils % 80.7 H Lymphocytes % 8.5 L Monocytes % 10.1 Eosinophils % 0.1 Basophils % 0.6 Absolute Neutrophils 13.4 H Absolute Lymphocytes 1.4 Absolute Monocytes 1.7 H Absolute Eosinophils 0.0 Absolute Basophils 0.1 Carbonic Acid 1.53 H HCO3/H2CO3 Ratio 23:1 ABG pH 7.47 H ABG pCO2 50.7 H ABG pO2 86.4 ABG HCO3 35.7 H ABG O2 Saturation 96.9 ABG Base Excess 10.7 FiO2 30% Sodium 137.1 Potassium 4.3 Chloride 97 L Carbon Dioxide 32 H Anion Gap 8 BUN 9 Creatinine 0.25 L Est GFR ( Amer) > 60 Est GFR (Non-Af Amer) > 60 Glucose 123 H Calcium 8.6 Magnesium 2.0 Total Bilirubin 0.3 AST 37 H ALT 34 Alkaline Phosphatase 271 H Total Protein 4.9 L Albumin 2.2 L Blood Type Antibody Screen 09/17/18 10:23 WBC RBC Hgb Hct MCV MCH MCHC RDW Plt Count Seg Neutrophils % Lymphocytes % Monocytes % Eosinophils % Basophils % Absolute Neutrophils Absolute Lymphocytes Absolute Monocytes Absolute Eosinophils Absolute Basophils Carbonic Acid HCO3/H2CO3 Ratio ABG pH ABG pCO2 ABG pO2 ABG HCO3 ABG O2 Saturation ABG Base Excess FiO2 Sodium Potassium Chloride Carbon Dioxide Anion Gap BUN Creatinine Est GFR ( Amer) Est GFR (Non-Af Amer) Glucose Calcium Magnesium Total Bilirubin AST ALT Alkaline Phosphatase Total Protein Albumin Blood Type O POSITIVE Antibody Screen NEGATIVE 09/12/18 09:55 Blood Blood Culture - Final NO GROWTH IN 5 DAYS 09/12/18 09:39 Blood Blood Culture - Final NO GROWTH IN 5 DAYS 09/13/18 14:50 Stool - Stool - Final 09/13/18 14:50 Stool - Stool Stool Culture - Final NO SALMONELLA, SHIGELLA, CAMPYLOBACTER, OR E.COLI 0157 RECOVERED. NEGATIVE FOR SHIGA TOXINS 1&2. 09/03/18 09/03/18 09/03/18 17:10 23:40 23:40 Creatine Kinase < 20 L CK-MB (CK-2) 1.41 1.40 Troponin I 0.036 0.033 NT-Pro-B Natriuret Pep 09/04/18 09/04/18 09/04/18 05:50 05:50 12:10 Creatine Kinase < 20 L Cancelled CK-MB (CK-2) 0.98 Troponin I 0.026 NT-Pro-B Natriuret Pep 09/04/18 09/04/18 09/04/18 12:10 18:03 18:03 Creatine Kinase < 20 L CK-MB (CK-2) 0.37 < 0.22 Troponin I 0.021 0.033 NT-Pro-B Natriuret Pep 09/04/18 09/04/18 09/07/18 23:40 23:40 06:15 Creatine Kinase < 20 L CK-MB (CK-2) 0.23 Troponin I 0.029 NT-Pro-B Natriuret Pep 837 Impressions: KUB X-Ray 09/17/18 00:00 IMPRESSION: 1. NO RADIOGRAPHIC EVIDENCE FOR ACUTE ABDOMINAL DISEASE. 2. Partially visualized nasogastric tube, tip in the region of the stomach. Chest X-Ray 09/17/18 06:00 IMPRESSION: Endotracheal and nasogastric tubes in good positioning. Minimal right basilar atelectasis Assessment & Plan - Diagnosis (1) Supraventricular tachycardia Is this a current diagnosis for this admission?: Yes Plan: I am get a digoxin level, will increase Cardizem to 60 p.o. every 8 hours. (2) Acute and chronic respiratory failure ([id number]) Qualifiers: Respiratory failure complication: hypoxia and hypercapnia Qualified Code(s) : J96.21 - Acute and chronic respiratory failure with hypoxia; J96.22 - Acute and chronic respiratory failure with hypercapnia; J96.22 - Acute and chronic respiratory failure with hypercapnia; J96.22 - Acute and chronic respiratory failure with hypercapnia Is this a current diagnosis for this admission?: Yes Plan: Patient is still on the ventilator 14 days after appropriate treatment of pulmonary toilet, beta-2 agonist, IV antibiotics, her electrolytes are normal, she still has a very poor negative inspiratory pressure and has a low albumin. We will consult surgical is for trach and PEG tube placement. We will consult social media editor for long-term care acute facility placement (3) Anemia Qualifiers: Anemia type: iron deficiency Iron deficiency anemia type: unspecified iron deficiency Qualified Code(s): D50.9 - Iron deficiency anemia, unspecified Is this a current diagnosis for this admission?: Yes (4) Hypokalemia Is this a current diagnosis for this admission?: Yes Plan: Corrected (5) Hypomagnesemia Is this a current diagnosis for this admission?: Yes (6) Septic shock Is this a current diagnosis for this admission?: Yes (7) Leukocytosis Qualifiers: Leukocytosis type: other Qualified Code(s): D72.828 - Other elevated white blood cell count Is this a current diagnosis for this admission?: Yes Plan: Time we will redo tracheal aspirate, we will monitor white Cell count we will get an echo today. 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 We will get social media editor for evaluation of placement into a long-term acute care facility.
[2018-09-17] MEDS: DILTIAZEM HCL 60 MG TABLET NG SCH ×2 (13:28→21:17)
--- NOTE | 2018-09-17 19:21 | RADIOLOGY REPORT (SQ) ---
EXAM DESCRIPTION: CHEST SINGLE VIEW COMPLETED DATE/TIME: 09/17/2018 7:11 pm REASON FOR STUDY: CENTRAL LINE PLACEMENT COMPARISON: 09/17/2020 EXAM PARAMETERS: NUMBER OF VIEWS: One view. TECHNIQUE: Single frontal radiographic view of the chest acquired. RADIATION DOSE: NA LIMITATIONS: None. FINDINGS: LUNGS AND PLEURA: Ill-defined bibasilar opacification. MEDIASTINUM AND HILAR STRUCTURES: No masses. Contour normal. HEART AND VASCULAR STRUCTURES: Heart size is borderline. BONES: No acute findings. HARDWARE: Endotracheal tube and left internal jugular catheter. Tip of the catheter is at the superi or vena cava. OTHER: No other significant finding. IMPRESSION: Tube and catheter placement. Faintly defined opacification in the lung bases may repres ent subsegmental atelectasis. Cannot entirely exclude an infiltrate. TECHNICAL DOCUMENTATION: JOB ID: [id number] [employer]- All Rights Reserved Reading location - IP/workstation name: [email or web address]
--- NOTE | 2018-09-17 19:59 | PDOC PROGRESS REPORT ---
Subjective Progress Note for:: 09/17/18 Subjective:: Patient was seen today as nurses reported excess ectopic activity including both supraventricular and ventricular but no sustained events noted. Patient about the same and has made very little progress. There is no significant change in general condition. Patient remains intubated, sedated, patient however looks comfortable and in acute distress. Patient is maintaining sinus rhythm. No recurrence of SVT noted. Medications reviewed. Reason For Visit: SVT Physical Exam Vital Signs: Temp Pulse Resp BP Pulse Ox 99.0 F 90 22 H 127/51 H 94 09/17/18 18:00 09/17/18 19:43 09/17/18 18:00 09/17/18 18:00 09/17/18 18:00 Intake & Output 09/16/18 09/17/18 09/18/18 06:59 06:59 06:59 Intake Total 3912 3531 3978 Output Total 3025 3635 1575 Balance 887 -104 2403 Weight 64.8 kg 63.9 kg Exam: GENERAL: well-nourished and in no acute distress. Patient is intubated and sedated. Orientation cannot be checked HEAD: Atraumatic, normocephalic. EYES: Pupils equal round and reactive to light, extraocular movements could not be checked, sclera anicteric, conjunctiva are normal. ENT: TMs normal, nares patent, oropharynx clear without exudates. Moist mucous membranes. No oral ulcerations or bleeding gums noted NECK: supple without lymphadenopathy or JVD. Trachea is central. No cervical or axillary lymphadenopathy noted. Carotids are 2+ LUNGS: Breath sounds mostly clear to auscultation patient is noted to have bibasal crackles at the extreme bases CHEST: Palpation of the chest wall shows no significant chest wall tenderness or abnormalities. 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 ABDOMEN: Soft, no significant tenderness appreciated, normoactive bowel sounds. No guarding, no rebound. No rigidity noted . No masses appreciated. EXTREMITIES: Pedal pulses are 1-2+, no calf tenderness noted, 1+ pedal edema noted. No clubbing or cyanosis. NEUROLOGICAL: The patient cannot participate in the neurological exam but no facial asymmetry noted. Extremities slightly hypotonic PSYCH: This cannot be evaluated. Patient cannot participate. SKIN: No significant ecchymosis, rash, or signs of pruritus noted. MUSCULOSKELETAL EXAM: No significant joint swelling noted. Patient cannot participate in musculoskeletal exam Results Laboratory Results: 09/17/18 03:51 09/17/18 03:51 09/17/18 09/17/18 09/17/18 03:51 03:51 06:00 WBC 16.6 H RBC 3.21 L Hgb 8.9 L Hct 27.7 L MCV 86 MCH 27.8 MCHC 32.2 RDW 16.8 H Plt Count 439 Seg Neutrophils % 80.7 H Lymphocytes % 8.5 L Monocytes % 10.1 Eosinophils % 0.1 Basophils % 0.6 Absolute Neutrophils 13.4 H Absolute Lymphocytes 1.4 Absolute Monocytes 1.7 H Absolute Eosinophils 0.0 Absolute Basophils 0.1 Carbonic Acid 1.53 H HCO3/H2CO3 Ratio 23:1 ABG pH 7.47 H ABG pCO2 50.7 H ABG pO2 86.4 ABG HCO3 35.7 H ABG O2 Saturation 96.9 ABG Base Excess 10.7 FiO2 30% Sodium 137.1 Potassium 4.3 Chloride 97 L Carbon Dioxide 32 H Anion Gap 8 BUN 9 Creatinine 0.25 L Est GFR ( Amer) > 60 Est GFR (Non-Af Amer) > 60 Glucose 123 H Calcium 8.6 Magnesium 2.0 Total Bilirubin 0.3 AST 37 H ALT 34 Alkaline Phosphatase 271 H Total Protein 4.9 L Albumin 2.2 L Blood Type Antibody Screen 09/17/18 10:23 WBC RBC Hgb Hct MCV MCH MCHC RDW Plt Count Seg Neutrophils % Lymphocytes % Monocytes % Eosinophils % Basophils % Absolute Neutrophils Absolute Lymphocytes Absolute Monocytes Absolute Eosinophils Absolute Basophils Carbonic Acid HCO3/H2CO3 Ratio ABG pH ABG pCO2 ABG pO2 ABG HCO3 ABG O2 Saturation ABG Base Excess FiO2 Sodium Potassium Chloride Carbon Dioxide Anion Gap BUN Creatinine Est GFR ( Amer) Est GFR (Non-Af Amer) Glucose Calcium Magnesium Total Bilirubin AST ALT Alkaline Phosphatase Total Protein Albumin Blood Type O POSITIVE Antibody Screen NEGATIVE 09/13/18 16:25 Catheter Tip - Central Line Catheter Tip Culture - Final Staph Coagulase Negative 09/12/18 09:55 Blood Blood Culture - Final NO GROWTH IN 5 DAYS 09/12/18 09:39 Blood Blood Culture - Final NO GROWTH IN 5 DAYS 09/13/18 14:50 Stool - Stool - Final 09/13/18 14:50 Stool - Stool Stool Culture - Final NO SALMONELLA, SHIGELLA, CAMPYLOBACTER, OR E.COLI 0157 RECOVERED. NEGATIVE FOR SHIGA TOXINS 1&2. 09/03/18 09/03/18 09/03/18 17:10 23:40 23:40 Creatine Kinase < 20 L CK-MB (CK-2) 1.41 1.40 Troponin I 0.036 0.033 NT-Pro-B Natriuret Pep 09/04/18 09/04/18 09/04/18 05:50 05:50 12:10 Creatine Kinase < 20 L Cancelled CK-MB (CK-2) 0.98 Troponin I 0.026 NT-Pro-B Natriuret Pep 09/04/18 09/04/18 09/04/18 12:10 18:03 18:03 Creatine Kinase < 20 L CK-MB (CK-2) 0.37 < 0.22 Troponin I 0.021 0.033 NT-Pro-B Natriuret Pep 09/04/18 09/04/18 09/07/18 23:40 23:40 06:15 Creatine Kinase < 20 L CK-MB (CK-2) 0.23 Troponin I 0.029 NT-Pro-B Natriuret Pep 837 EKG Comments: Twelve-lead EKG performed shows sinus rhythm, no acute ST-T wave changes noted. 1 APCs noted. Impressions: KUB X-Ray 09/17/18 00:00 IMPRESSION: 1. NO RADIOGRAPHIC EVIDENCE FOR ACUTE ABDOMINAL DISEASE. 2. Partially visualized nasogastric tube, tip in the region of the stomach. Chest X-Ray 09/17/18 06:00 IMPRESSION: Endotracheal and nasogastric tubes in good positioning. Minimal right basilar atelectasis Assessment & Plan - Diagnosis (1) Supraventricular tachycardia Is this a current diagnosis for this admission?: Yes (2) Acute and chronic respiratory failure ([id number]) Qualifiers: Respiratory failure complication: hypoxia and hypercapnia Qualified Code(s) : J96.21 - Acute and chronic respiratory failure with hypoxia; J96.22 - Acute and chronic respiratory failure with hypercapnia; J96.22 - Acute and chronic respiratory failure with hypercapnia; J96.22 - Acute and chronic respiratory failure with hypercapnia Is this a current diagnosis for this admission?: Yes (3) COPD (chronic obstructive pulmonary disease) Qualifiers: COPD type: unspecified COPD Qualified Code(s): J44.9 - Chronic obstructive pulmonary disease, unspecified Is this a current diagnosis for this admission?: Yes (4) Atrial flutter with rapid ventricular response Is this a current diagnosis for this admission?: Yes (5) Debility, unspecified Is this a current diagnosis for this admission?: Yes (6) Hypertension Qualifiers: Hypertension type: essential hypertension Qualified Code(s): I10 - Essential (primary) hypertension Is this a current diagnosis for this admission?: Yes - Notes Notes: Increased supraventricular ectopy. This was noted on rhythm strip monitoring. Agree with increasing Cardizem to 60 mg p.o. every 8. Maintain electrolytes within normal limits. Paroxysmal atrial flutter fibrillation: Continue with chronic anticoagulation and rate control agent as you are doing. There has been no recurrence so far. Hypertension: This is under satisfactory control. Continue current agent. COPD: Patient and her great management by medical nurse and obgyn hospitalist physician. Coronary artery disease: Symptomatically stable without any angina equivalent symptoms or angina being complained about. SVT: There has been no recurrences. Acute on chronic respiratory failure: Patient being well managed by veterinary surgery technologist and also medical nurse. General debility: Patient noted to have significant general debility. May consider nutritional evaluation and consultation. May need to consider patient for tracheostomy. - Time Time with patient: 15-25 minutes - More than 50% of the time spent coordinating care, discussing management plans with involved caregivers. Management plans discussed with involved personnels. Medical decision making was of moderate to high complexity, patient's has multiple comorbidities. Medications reviewed and adjusted accordingly: Yes
--- NOTE | 2018-09-17 20:12 | EKG REPORT ---
SEVERITY:- BORDERLINE ECG - SINUS RHYTHM ATRIAL PREMATURE COMPLEX BORDERLINE LEFT AXIS DEVIATION LOW VOLTAGE IN FRONTAL LEADS : Confirmed by: Emmett Troncoso 17-Sep-2018 20:11:08
[2018-09-17] MEDS: MONTELUKAST SODIUM 10 MG TABLET NG SCH (21:17)
--- NOTE | 2018-09-17 22:21 | OPERATIVE REPORT E ---
Operative Report NAME: SMITH IRAHETA : 1945 AGE: 72Y DATE OF SURGERY: 09/17/2018 ROOM: 602 PREOPERATIVE DIAGNOSIS: POOR VEINS FOR INTRAVENOUS ACCESS. THE PATIENT IS INTUBATED. POSTOPERATIVE DIAGNOSIS: POOR VEINS FOR INTRAVENOUS ACCESS. THE PATIENT IS INTUBATED. OPERATION: Placement of central line of the left internal jugular vein under ultrasound guidance. SURGEON: JULIUS HALL M.D. ANESTHESIA: Local, MAC. PROCEDURE: Both sides of the neck were prepped and draped in the usual sterile fashion. With use of the ultrasound, the right internal jugular vein was then identified. It was noted to be relatively small. An attempt was done to puncture the vein, but there was some brisk bleeding through the catheter and the artery was punctured. The needle was immediately pulled out and pressure applied at the puncture site. After a couple of minutes, no evidence of hematoma noted. Attention was then directed to the left internal jugular vein, and this time with the use of the ultrasound, the left internal jugular vein was then punctured and guidewire passed through the needle toward the area of the superior vena cava. The blood coming out of the needle initially was not pulsatile and dark, indicating venous blood. Also, the guidewire went through the needle quite easily toward the area of the superior vena cava. The needle was removed and insertion site dilated. A triple lumen catheter was inserted through the guidewire a distance of about 17 cm. All three ports aspirated blood easily and infused saline easily. The catheter was then anchored to the skin with 3-0 silk. A Biopatch was placed at the insertion site and a transparent sterile dressing placed over the Biopatch and catheter. The patient tolerated the procedure well. Chest x-ray will be obtained for placement. She did have an extra dose of propofol during the procedure and local anesthesia infiltrated along the puncture sites. DICTATING PHYSICIAN: JULIUS HALL M.D. [id number] PHY#: [id number] ID: [id number] JOB#: [id number] ACCT: [id number] cc:JULIUS HALL M.D. >
[2018-09-18] MEDS: DILTIAZEM HCL 60 MG TABLET NG SCH (05:21)
[2018-09-18] MEDS: 1/2 NORMAL SALINE 1,000 ML IV PRN (05:21)
[2018-09-18] MEDS: PROPOFOL 1,000 MG/100 ML INFUS..BTL IV PRN ×2 (05:25→10:11)
[2018-09-18 05:31] LABS: ABSOLUTE BASOPHILS # (AUTO) 0.1 10^3/uL (0.0-0.2); ABSOLUTE LYMPHOCYTES (AUTO) 1.7 10^3/uL (0.5-4.7); ABSOLUTE MONOCYTES (AUTO) 1.6 10^3/uL (0.1-1.4); ABSOLUTE NEUT (AUTO) 13.1 10^3/uL (1.7-8.2); BASOPHILS % (AUTO) 0.4 % (0-2); EOSINOPHILS % (AUTO) 0.1 % (0-6); HEMOGLOBIN 8.2 g/dL (12.0-15.5); LYMPHOCYTES % (AUTO) 10.2 % (13-45); MEAN CORPUSCULAR HEMOGLOBIN 28.3 pg (27.0-33.4); MEAN CORPUSCULAR HGB CONC 32.8 g/dL (32.0-36.0); MEAN CORPUSCULAR VOLUME 86 fl (80-97); MONOCYTES % (AUTO) 9.6 % (3-13); PLATELET COUNT 520 10^3/uL (150-450); RED BLOOD COUNT 2.89 10^6/uL (3.72-5.28); RED CELL DISTRIBUTION WIDTH 17.1 % (11.5-14.0); SEGMENTED NEUTROPHILS % (AUTO) 79.7 % (42-78); TOTAL CELLS COUNTED % (AUTO) 100 %; WHITE BLOOD COUNT 16.5 10^3/uL (4.0-10.5)
[2018-09-18 05:43] LABS: ALANINE AMINOTRANSFERASE 42 U/L (9-52); ALBUMIN 2.2 g/dL (3.5-5.0); ALKALINE PHOSPHATASE 349 U/L (38-126); ANION GAP 6 (5-19); ASPARTATE AMINO TRANSFERASE 39 U/L (14-36); BILIRUBIN,DIRECT 0.4 mg/dL (0.0-0.4); BILIRUBIN,TOTAL 0.4 mg/dL (0.2-1.3); BLOOD UREA NITROGEN 10 mg/dL (7-20); CALCIUM 8.7 mg/dL (8.4-10.2); CARBON DIOXIDE 33 mmol/L (22-30); CHLORIDE 98 mmol/L (98-107); GLUCOSE 113 mg/dL (75-110); POTASSIUM 4.4 mmol/L (3.6-5.0); SODIUM 137.3 mmol/L (137-145); TRIGLYCERIDES 110 mg/dL (<150)
[2018-09-18 06:11] LABS: ARTERIAL BLOOD H2CO3 1.37 mmol/L (1.05-1.35); ARTERIAL BLOOD PCO2 45.5 mmHg (35-45); ARTERIAL BLOOD PH 7.47 (7.35-7.45)
[2018-09-18 06:12] LABS: ARTERIAL BLOOD BASE EXCESS 7.4 mmol/L; ARTERIAL BLOOD FIO2 30%; ARTERIAL BLOOD HCO3 32.2 mmol/L (20-24); ARTERIAL BLOOD O2 SATURATION 92.6 % (94-98); ARTERIAL BLOOD TOTAL CO2 33.6 mmol/L (21-25)
--- NOTE | 2018-09-18 06:22 | RADIOLOGY REPORT (SQ) ---
EXAM DESCRIPTION: X-ray single view chest. CLINICAL HISTORY: 72 years Female, resp failure COMPARISON: Prior portable chest x-ray performed on 09/17/2018 at 7:05 PM and 7:42 AM. TECHNIQUE: Single portable view of the chest performed on 09/18/2018 at 6:06 AM FINDINGS: The lungs are well expanded. There is increasing interstitial prominence in the right inferior hemithorax which may be due to atelectasis. Aspiration or pneumonia are not excluded. There is minimal left basilar atelectasis. The remainder of the lungs are clear. There is no evidence of a pneumothorax. The cardiac silhouette is normal in size and configuration. The mediastinal contours are normal. No acute osseous abnormality is identified. There are degenerative changes of the shoulders and spine. No focal soft tissue abnormalities are seen. Lines and tubes: The left IJ central venous catheter tip overlies the region of the superior vena cava. The tip of the endotracheal tube extends to the level of the aortic knob approximately 2.4 cm above the supa. The feeding tube extends below the diaphragm. IMPRESSION: 1. Possible atelectasis, aspiration or pneumonic infiltrate in the right inferior hemithorax and minimal left basilar atelectasis. 2. Grossly stable life support lines and tubes.
[2018-09-18] MEDS: LEVALBUTEROL HCL NEB 0.63 MG/3 ML AMPUL NEB PRN (08:36)
[2018-09-18] MEDS: BUDESONIDE NEB 0.5 MG/2 ML AMPUL NEB SCH (08:36)
[2018-09-18] MEDS: DOCUSATE SODIUM 100 MG/10 ML UDC NG SCH (09:17)
[2018-09-18] MEDS: LINEZOLID 600 MG/300 ML RTUPB IV SCH (09:17)
[2018-09-18] MEDS: DIGOXIN INJ 0.5 MG/2 ML AMPULE IV SCH (09:18)
[2018-09-18] MEDS: METOPROLOL TARTRATE 50 MG TABLET NG SCH (09:18)
[2018-09-18] MEDS: PANTOPRAZOLE SODIUM 40 MG VIAL IV SCH (09:19)
[2018-09-18] MEDS: PRAMIPEXOLE DI-HCL 0.25 MG TABLET NG SCH (09:19)
[2018-09-18] MEDS: ROFLUMILAST 500 MCG TABLET NG SCH (09:19)
[2018-09-18] MEDS: TIOTROPIUM BROMIDE DPI 5 CAP/KIT (18 MCG/CAP) IH SCH (09:19)
[2018-09-18] MEDS: CLOTRIMAZOLE/BETAMETHASONE DIP CREAM 15 GM TOP SCH (09:20)
--- NOTE | 2018-09-18 09:34 | PDOC TRANSFER SUMMARY ---
General Admission Date/PCP: 09/03/18 15:59 KAILEE WOLF MD Accepting [facility] (Comments[facility] Accepting Physician: DR. CHAPMAN Resuscitation Status: Do Not Resuscitate - Transfer Diagnosis (1) Supraventricular tachycardia Is this a current diagnosis for this admission?: Yes (2) Acute and chronic respiratory failure ([id number]) Is this a current diagnosis for this admission?: Yes (3) Anemia Is this a current diagnosis for this admission?: Yes (4) Hypokalemia Is this a current diagnosis for this admission?: Yes (5) Hypomagnesemia Is this a current diagnosis for this admission?: Yes (6) Septic shock Is this a current diagnosis for this admission?: Yes (7) Leukocytosis Is this a current diagnosis for this admission?: Yes (8) Tinea of groin Is this a current diagnosis for this admission?: Yes - Transfer Medications Home Medications: Albuterol Sulfate [Proair HFA] 2 puff IH QIDP PRN 09/04/18 Apixaban [Eliquis 2.5 mg Tablet] 2.5 mg PO Q12 09/04/18 Ibuprofen [Motrin 800 mg Tablet] 800 mg PO TID 09/04/18 Metoprolol Succinate [Toprol Xl 25 mg Tab.sr] 25 mg PO Q12 09/04/18 Montelukast Sodium [Singulair 10 mg Tablet] 10 mg PO QPM 09/04/18 Multivitamin [Daily Multiple Vitamin] 1 each PO DAILY 09/04/18 Olanzapine [Zyprexa 2.5 Mg Tablet] 2.5 mg PO DAILY 09/04/18 Omeprazole 40 mg PO DAILY 09/04/18 Oxycodone HCl [Oxy-Ir 5 mg Tablet] 10 mg PO Q6HP PRN 09/04/18 Potassium Chloride [Klor-Con 10 Meq Capsule ER] 20 meq PO BID 09/04/18 Pramipexole Di-HCl [Mirapex 0.25 Mg Tablet] 0.25 mg PO QHS 09/04/18 Pravastatin Sodium [Pravachol] 20 mg PO QPM 09/04/18 Tolterodine Tartrate [Detrol LA] 2 mg PO DAILY 09/04/18 Transfer Medications: Current Medications Acetaminophen (Tylenol 650 Mg Supp) 650 mg SC Q8HP PRN PRN Reason: TEMP > 100.5 Stop: 10/13/18 13:50 Last Admin: 09/15/18 21:08 Dose: 650 mg Apixaban (Eliquis 2.5 Mg Tablet) 2.5 mg NG BID [facility] Stop: 10/05/18 09:59 Last Admin: 09/16/18 17:29 Dose: 2.5 mg Betamethasone/Clotrimazole (Lotrisone Cream 15 Gm) 1 applic TOP BID [facility] Stop: 10/17/18 09:59 Last Admin: 09/18/18 09:20 Dose: 1 applic Budesonide (Pulmicort Neb 0.5 Mg/2 Ml Ampul) 0.5 mg NEB RTQ12 [facility] Stop: 10/03/18 19:59 Last Admin: 09/18/18 08:36 Dose: 0.5 mg Digoxin (Lanoxin Inj 0.5 Mg/2 Ml Ampule) 0.125 mg IV DAILY [facility] Stop: 10/05/18 10:59 Last Admin: 09/18/18 09:18 Dose: 0.125 mg Diltiazem HCl (Cardizem 60 Mg Tablet) 60 mg NG Q8 [facility] Stop: 10/17/18 13:59 Last Admin: 09/18/18 05:21 Dose: 60 mg Docusate Sodium (Colace Udc 100 Mg/10 Ml Oral Soln) 100 mg NG BID [facility] Stop: 10/04/18 10:14 Last Admin: 09/18/18 09:17 Dose: Not Given Propofol (Diprivan Rtu 1000 Mg/100 Ml Inf.Bottle) 1,000 mg in 100 mls @ 0 mls/ hr IV CONTINUOUS PRN; Protocol; Titrate PRN Reason: THIS MED IS NOT "PRN" Stop: 10/08/18 11:32 Last Titration: 09/18/18 06:24 Dose: 11.7 mls/hr Sodium Chloride (Nacl 0.45% 1000 Ml Iv Soln) 1,000 mls @ 83.3 mls/hr IV CONTINUOUS PRN PRN Reason: THIS MED IS NOT "PRN" Stop: 10/08/18 11:48 Last Admin: 09/18/18 05:21 Dose: 83.3 mls/hr Linezolid (Zyvox Rtu 600 Mg/300 Ml Premixed) 600 mg in 300 mls @ 300 mls/hr IV Q12 [facility] Stop: 09/19/18 11:29 Last Admin: 09/18/18 09:17 Dose: 300 mls/hr, 300 mls/hr Influenza Virus Vaccine Quadrival (Fluarix Adlt Quad Vac 0.5 Ml Syr) 0.5 ml IM .DISCHARGE PRN PRN Reason: THIS MED IS NOT "PRN" Stop: 10/03/18 18:37 Levalbuterol HCl (Xopenex Neb 0.63 Mg/3 Ml Ampul) 0.63 mg NEB RTQ6HP PRN PRN Reason: SHORTNESS OF BREATH Stop: 10/03/18 16:22 Last Admin: 09/18/18 08:36 Dose: 0.63 mg Metoprolol Tartrate (Lopressor 50 Mg Tablet) 75 mg NG Q12 [facility] Stop: 10/08/18 09:59 Last Admin: 09/18/18 09:18 Dose: 75 mg Montelukast Sodium (Singulair 10 Mg Tablet) 10 mg NG QHS [facility] Stop: 10/03/18 21:59 Last Admin: 09/17/18 21:17 Dose: 10 mg Ondansetron HCl (Zofran Odt 4 Mg Tablet) 4 mg NG Q6HP PRN PRN Reason: FOR NAUSEA/VOMITING Stop: 10/04/18 05:38 Pantoprazole Sodium (Protonix Iv Inj 40 Mg Vial) 40 mg IV DAILY [facility] Stop: 09/19/18 09:59 Last Admin: 09/18/18 09:19 Dose: 40 mg Pharmacy Profile Note (Medication Communication Order) 1 each .NOTICE NR Stop: 10/04/18 05:29 Pramipexole Dihydrochloride (Mirapex 0.25 Mg Tablet) 0.25 mg NG DAILY [facility] Stop: 10/04/18 09:59 Last Admin: 09/18/18 09:19 Dose: 0.25 mg Roflumilast (Daliresp 500 Mcg Tablet) 500 mcg NG DAILY [facility] Stop: 10/04/18 09:59 Last Admin: 09/18/18 09:19 Dose: 500 mcg Tiotropium [place] (Spiriva Handihaler 5 Cap/Kit (18 Mcg/Cap)) 1 cap IH DAILY [facility] Stop: 10/04/18 09:59 Last Admin: 09/18/18 09:19 Dose: Not Given - Allergies Allergies/Adverse Reactions: No Known Allergies Allergy (Verified 06/12/18 18:15) - Diet/Activity Discharge Diet: Tube Feeding (Comments) Discharge Activity: Bedrest Hospital Course Hospital Course: Patient presented to hospital progresssive chestr pain was found in SVT requiring IV cardiazem. She was worked up cardiac enzymes and isoenzymes were negative as was D-dimer,. She had labs w/o any abnormalities except hypokalemia which was corrected as was hypomagnesmia. On her 2-3 day she went into respiratory failuer failed Bi-pap and underwent intubation. During her course she has had pseudomonas in urine and also MRSA IN tracheal aspirate, She was weaned off pressors and IV cardiezam was switched to oral and started on eliquis for stroke prevention since her CHAD2 score was 3 . Durinbg her course she has persisted with leukocytosis repeated blood culture and stool and tracheal aspirate have not show obvious source. She is currently on Fio2 30% peep 5 pressure supprt of 12 . Because this day 14 felt she is [facility] Physical Exam Vital Signs: Temp Pulse Resp BP Pulse Ox 98.1 F 88 19 125/45 L 96 09/18/18 07:53 09/18/18 08:36 09/18/18 08:36 09/18/18 07:53 09/18/18 08:36 Intake & Output 09/17/18 09/18/18 09/19/18 06:59 06:59 06:59 Intake Total 3531 6882 Output Total 3635 3900 240 Balance -104 2982 -240 Weight 63.9 kg 65 kg General appearance: PRESENT: no acute distress, well-developed, well-nourished Head exam: PRESENT: atraumatic, normocephalic Eye exam: PRESENT: conjunctiva pink, EOMI, PERRLA. ABSENT: scleral icterus Ear exam: PRESENT: normal external ear exam Mouth exam: PRESENT: moist, tongue midline Neck exam: ABSENT: carotid bruit, JVD, lymphadenopathy, thyromegaly Respiratory exam: PRESENT: decreased breath sounds Cardiovascular exam: PRESENT: RRR, systolic murmur Pulses: PRESENT: normal dorsalis pedis pul Vascular exam: PRESENT: normal capillary refill GI/Abdominal exam: PRESENT: normal bowel sounds, soft. ABSENT: distended, guarding, mass, organolmegaly, rebound, tenderness Rectal exam: PRESENT: deferred Extremities exam: PRESENT: pedal edema Neurological exam: PRESENT: alert, awake, oriented to person, oriented to place , oriented to time, oriented to situation, CN II-XII grossly intact. ABSENT: motor sensory deficit Psychiatric exam: PRESENT: appropriate affect, normal mood. ABSENT: homicidal ideation, suicidal ideation Skin exam: PRESENT: dry, intact, warm. ABSENT: cyanosis, rash Results Laboratory Results: 09/18/18 05:10 09/18/18 05:10 09/17/18 09/18/18 09/18/18 10:23 05:10 05:10 WBC 16.5 H RBC 2.89 L Hgb 8.2 L Hct 25.0 L MCV 86 MCH 28.3 MCHC 32.8 RDW 17.1 H Plt Count 520 H Seg Neutrophils % 79.7 H Lymphocytes % 10.2 L Monocytes % 9.6 Eosinophils % 0.1 Basophils % 0.4 Absolute Neutrophils 13.1 H Absolute Lymphocytes 1.7 Absolute Monocytes 1.6 H Absolute Eosinophils 0.0 Absolute Basophils 0.1 Carbonic Acid 1.37 H HCO3/H2CO3 Ratio 23:1 ABG pH 7.47 H ABG pCO2 45.5 H ABG pO2 61.0 L ABG HCO3 32.2 H ABG O2 Saturation 92.6 L ABG Base Excess 7.4 FiO2 30% Sodium Potassium Chloride Carbon Dioxide Anion Gap BUN Creatinine Est GFR ( Amer) Est GFR (Non-Af Amer) Glucose Calcium Magnesium Total Bilirubin AST ALT Alkaline Phosphatase Total Protein Albumin Triglycerides Blood Type O POSITIVE Antibody Screen NEGATIVE 09/18/18 05:10 WBC RBC Hgb Hct MCV MCH MCHC RDW Plt Count Seg Neutrophils % Lymphocytes % Monocytes % Eosinophils % Basophils % Absolute Neutrophils Absolute Lymphocytes Absolute Monocytes Absolute Eosinophils Absolute Basophils Carbonic Acid HCO3/H2CO3 Ratio ABG pH ABG pCO2 ABG pO2 ABG HCO3 ABG O2 Saturation ABG Base Excess FiO2 Sodium 137.3 Potassium 4.4 Chloride 98 Carbon Dioxide 33 H Anion Gap 6 BUN 10 Creatinine 0.34 L Est GFR ( Amer) > 60 Est GFR (Non-Af Amer) > 60 Glucose 113 H Calcium 8.7 Magnesium 2.1 Total Bilirubin 0.4 AST 39 H ALT 42 Alkaline Phosphatase 349 H Total Protein 5.0 L Albumin 2.2 L Triglycerides 110 Blood Type Antibody Screen 11/08/18 16:25 Catheter Tip - Central Line Catheter Tip Culture - Final Staph Coagulase Negative 09/12/18 09:55 Blood Blood Culture - Final NO GROWTH IN 5 DAYS 09/12/18 09:39 Blood Blood Culture - Final NO GROWTH IN 5 DAYS 09/13/18 14:50 Stool - Stool - Final 09/13/18 14:50 Stool - Stool Stool Culture - Final NO SALMONELLA, SHIGELLA, CAMPYLOBACTER, OR E.COLI 0157 RECOVERED. NEGATIVE FOR SHIGA TOXINS 1&2. 09/03/18 09/03/18 09/03/18 17:10 23:40 23:40 Creatine Kinase < 20 L CK-MB (CK-2) 1.41 1.40 Troponin I 0.036 0.033 NT-Pro-B Natriuret Pep 09/04/18 09/04/18 09/04/18 05:50 05:50 12:10 Creatine Kinase < 20 L Cancelled CK-MB (CK-2) 0.98 Troponin I 0.026 NT-Pro-B Natriuret Pep 09/04/18 09/04/18 09/04/18 12:10 18:03 18:03 Creatine Kinase < 20 L CK-MB (CK-2) 0.37 < 0.22 Troponin I 0.021 0.033 NT-Pro-B Natriuret Pep 09/04/18 09/04/18 09/07/18 23:40 23:40 06:15 Creatine Kinase < 20 L CK-MB (CK-2) 0.23 Troponin I 0.029 NT-Pro-B Natriuret Pep 837 Impressions: KUB X-Ray 09/17/18 00:00 IMPRESSION: 1. NO RADIOGRAPHIC EVIDENCE FOR ACUTE ABDOMINAL DISEASE. 2. Partially visualized nasogastric tube, tip in the region of the stomach. Chest X-Ray 09/18/18 06:00 IMPRESSION: 1. Possible atelectasis, aspiration or pneumonic infiltrate in the right inferior hemithorax and minimal left basilar atelectasis. 2. Grossly stable life support lines and tubes. Plan Discharge Plan: She will be transferred to [facility] for weaning management. Time Spent: Greater than 30 Minutes
[2018-09-18 10:01] VITALS: BP 123/50
--- NOTE | 2018-09-19 18:43 | PDOC PROGRESS REPORT ---
Subjective Progress Note for:: 09/18/18 Subjective:: Heart rate noted to have stabilized with increased dose of Cardizem.. Patient about the same and has made very little progress. There is no significant change in general condition. Patient remains intubated, sedated, patient however looks comfortable and in acute distress. Patient is maintaining sinus rhythm. No recurrence of SVT noted. Medications reviewed. Reason For Visit: SVT Physical Exam Vital Signs: Temp Pulse Resp BP Pulse Ox 98.2 F 88 29 H 123/50 L 94 09/18/18 10:00 09/18/18 08:36 09/18/18 10:00 09/18/18 09:52 09/18/18 10:00 Intake & Output 09/17/18 09/18/18 09/19/18 06:59 06:59 06:59 Intake Total 3531 6882 44 Output Total 3635 3900 640 Balance -104 2982 -596 Weight 63.9 kg 65 kg Exam: GENERAL: well-nourished and in no acute distress. Patient is intubated and sedated. Orientation cannot be checked HEAD: Atraumatic, normocephalic. EYES: Pupils equal round and reactive to light, extraocular movements could not be checked, sclera anicteric, conjunctiva are normal. ENT: TMs normal, nares patent, oropharynx clear without exudates. Moist mucous membranes. No oral ulcerations or bleeding gums noted NECK: supple without lymphadenopathy or JVD. Trachea is central. No cervical or axillary lymphadenopathy noted. Carotids are 2+ LUNGS: Breath sounds mostly clear to auscultation patient is noted to have bibasal crackles at the extreme bases CHEST: Palpation of the chest wall shows no significant chest wall tenderness or abnormalities. HEART: [place] MANAGER ACTIVITIES, No PSH, 2/6 JARAD aortic area, 1/6 valentine systolic murmur mitral area , no rubs or gallops. ABDOMEN: Soft, no significant tenderness appreciated, normoactive bowel sounds. No guarding, no rebound. No rigidity noted . No masses appreciated. EXTREMITIES: Pedal pulses are 1-2+, no calf tenderness noted, 1+ pedal edema noted. No clubbing or cyanosis. NEUROLOGICAL: The patient cannot participate in the neurological exam but no facial asymmetry noted. Extremities slightly hypotonic PSYCH: This cannot be evaluated. Patient cannot participate. SKIN: No significant ecchymosis, rash, or signs of pruritus noted. MUSCULOSKELETAL EXAM: No significant joint swelling noted. Patient cannot participate in musculoskeletal exam Results Laboratory Results: 09/18/18 05:10 09/18/18 05:10 09/18/18 09/18/18 09/18/18 05:10 05:10 05:10 WBC 16.5 H RBC 2.89 L Hgb 8.2 L Hct 25.0 L MCV 86 MCH 28.3 MCHC 32.8 RDW 17.1 H Plt Count 520 H Seg Neutrophils % 79.7 H Lymphocytes % 10.2 L Monocytes % 9.6 Eosinophils % 0.1 Basophils % 0.4 Absolute Neutrophils 13.1 H Absolute Lymphocytes 1.7 Absolute Monocytes 1.6 H Absolute Eosinophils 0.0 Absolute Basophils 0.1 Carbonic Acid 1.37 H HCO3/H2CO3 Ratio 23:1 ABG pH 7.47 H ABG pCO2 45.5 H ABG pO2 61.0 L ABG HCO3 32.2 H ABG O2 Saturation 92.6 L ABG Base Excess 7.4 FiO2 30% Sodium 137.3 Potassium 4.4 Chloride 98 Carbon Dioxide 33 H Anion Gap 6 BUN 10 Creatinine 0.34 L Est GFR ( Amer) > 60 Est GFR (Non-Af Amer) > 60 Glucose 113 H Calcium 8.7 Magnesium 2.1 Total Bilirubin 0.4 AST 39 H ALT 42 Alkaline Phosphatase 349 H Total Protein 5.0 L Albumin 2.2 L Triglycerides 110 09/13/18 16:25 Catheter Tip - Central Line Catheter Tip Culture - Final Staph Coagulase Negative 09/03/18 09/03/18 09/03/18 17:10 23:40 23:40 Creatine Kinase < 20 L CK-MB (CK-2) 1.41 1.40 Troponin I 0.036 0.033 NT-Pro-B Natriuret Pep 09/04/18 09/04/18 09/04/18 05:50 05:50 12:10 Creatine Kinase < 20 L Cancelled CK-MB (CK-2) 0.98 Troponin I 0.026 NT-Pro-B Natriuret Pep 09/04/18 09/04/18 09/04/18 12:10 18:03 18:03 Creatine Kinase < 20 L CK-MB (CK-2) 0.37 < 0.22 Troponin I 0.021 0.033 NT-Pro-B Natriuret Pep 09/04/18 09/04/18 09/07/18 23:40 23:40 06:15 Creatine Kinase < 20 L CK-MB (CK-2) 0.23 Troponin I 0.029 NT-Pro-B Natriuret Pep 837 Impressions: KUB X-Ray 09/17/18 00:00 IMPRESSION: 1. NO RADIOGRAPHIC EVIDENCE FOR ACUTE ABDOMINAL DISEASE. 2. Partially visualized nasogastric tube, tip in the region of the stomach. Chest X-Ray 09/18/18 06:00 IMPRESSION: 1. Possible atelectasis, aspiration or pneumonic infiltrate in the right inferior hemithorax and minimal left basilar atelectasis. 2. Grossly stable life support lines and tubes. Assessment & Plan - Diagnosis (1) Supraventricular tachycardia Is this a current diagnosis for this admission?: Yes (2) Acute and chronic respiratory failure ([id number]) Qualifiers: Respiratory failure complication: hypoxia and hypercapnia Qualified Code(s) : J96.21 - Acute and chronic respiratory failure with hypoxia; J96.22 - Acute and chronic respiratory failure with hypercapnia; J96.22 - Acute and chronic respiratory failure with hypercapnia; J96.22 - Acute and chronic respiratory failure with hypercapnia Is this a current diagnosis for this admission?: Yes (3) COPD (chronic obstructive pulmonary disease) Qualifiers: COPD type: unspecified COPD Qualified Code(s): J44.9 - Chronic obstructive pulmonary disease, unspecified Is this a current diagnosis for this admission?: Yes (4) Atrial flutter with rapid ventricular response Is this a current diagnosis for this admission?: Yes (5) Debility, unspecified Is this a current diagnosis for this admission?: Yes (6) Hypertension Qualifiers: Hypertension type: essential hypertension Qualified Code(s): I10 - Essential (primary) hypertension Is this a current diagnosis for this admission?: Yes - Notes Notes: Patient being transferred to another subacute care for weaning and ventilator management. Cardiac felder she is noted to be stable. Patient has tolerated increased doses of Cardizem for frequent APCs. No significant ventricular dysrhythmia noted. Paroxysmal atrial flutter fibrillation: Continue with chronic anticoagulation and rate control agent as you are doing. There has been no recurrence so far. Hypertension: This is under satisfactory control. Continue current agent. 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 Coronary artery disease: Symptomatically stable without any angina equivalent symptoms or angina being complained about. SVT: There has been no recurrences. Acute on chronic respiratory failure: Patient being well managed by press offbearer and also air hoist operator. General debility: Patient noted to have significant general debility. May consider nutritional evaluation and consultation. May need to consider patient for tracheostomy. - Time Time with patient: 15-25 minutes - More than 50% of the time spent coordinating care, discussing management plans with involved caregivers. Management plans discussed with involved personnels. Medical decision making was of moderate to high complexity, patient's has multiple comorbidities. Medications reviewed and adjusted accordingly: Yes
== END 2018-09-18 10:30 | DRG 870 ==
LOC: ER 14:12 → EH 15:59 → 3W 18:02 → ICU 09-04 01:20
PROVIDERS: ADMIT Internal Medicine; ATTEND Internal Medicine
PROC: 3E0F73Z Introduction of Anti-inflammatory into Respiratory Tract, Via Natural or Artificial Opening (ICD-10-PCS; 2018-09-03)
PROC: 5A09357 Assistance with Respiratory Ventilation, Less than 24 Consecutive Hours, Continuous Positive Airway Pressure (ICD-10-PCS; 2018-09-03)
PROC: 5A1945Z Respiratory Ventilation, 24-96 Consecutive Hours (ICD-10-PCS; 2018-09-04)
PROC: 0BH17EZ Insertion of Endotracheal Airway into Trachea, Via Natural or Artificial Opening (ICD-10-PCS; 2018-09-04)
PROC: 30233N1 Transfusion of Nonautologous Red Blood Cells into Peripheral Vein, Percutaneous Approach (ICD-10-PCS; 2018-09-06)
PROC: 5A09457 Assistance with Respiratory Ventilation, 24-96 Consecutive Hours, Continuous Positive Airway Pressure (ICD-10-PCS; 2018-09-07)
PROC: 5A1955Z Respiratory Ventilation, Greater than 96 Consecutive Hours (ICD-10-PCS; principal; 2018-09-08)
PROC: 0BH17EZ Insertion of Endotracheal Airway into Trachea, Via Natural or Artificial Opening (ICD-10-PCS; 2018-09-08)
PROC: 3E0F73Z Introduction of Anti-inflammatory into Respiratory Tract, Via Natural or Artificial Opening (ICD-10-PCS; 2018-09-10)
PROC: 02HV33Z Insertion of Infusion Device into Superior Vena Cava, Percutaneous Approach (ICD-10-PCS; 2018-09-17)
PROC: B548ZZA Ultrasonography of Superior Vena Cava, Guidance (ICD-10-PCS; 2018-09-17)
PROC: 3E02340 Introduction of Influenza Vaccine into Muscle, Percutaneous Approach (ICD-10-PCS; 2018-09-18)
DX: A41.9 Sepsis, unspecified organism (principal); J96.21 Acute and chronic respiratory failure with hypoxia; R65.21 Severe sepsis with septic shock; J96.22 Acute and chronic respiratory failure with hypercapnia; I47.1 Supraventricular tachycardia; J44.1 Chronic obstructive pulmonary disease with (acute) exacerbation; I48.92 Unspecified atrial flutter; N39.0 Urinary tract infection, site not specified; I42.9 Cardiomyopathy, unspecified; Z66 Do not resuscitate; I48.0 Paroxysmal atrial fibrillation; Z78.1 Physical restraint status; E87.6 Hypokalemia; E83.42 Hypomagnesemia; B35.8 Other dermatophytoses; I25.10 Atherosclerotic heart disease of native coronary artery without angina pectoris; Z99.81 Dependence on supplemental oxygen; K21.9 Gastro-esophageal reflux disease without esophagitis; M19.90 Unspecified osteoarthritis, unspecified site; F32.9 Major depressive disorder, single episode, unspecified; D50.9 Iron deficiency anemia, unspecified; I87.2 Venous insufficiency (chronic) (peripheral); Z60.2 Problems related to living alone; I10 Essential (primary) hypertension; B96.20 Unspecified Escherichia coli [E. coli] as the cause of diseases classified elsewhere; B96.5 Pseudomonas (aeruginosa) (mallei) (pseudomallei) as the cause of diseases classified elsewhere; B95.62 Methicillin resistant Staphylococcus aureus infection as the cause of diseases classified elsewhere; Z79.899 Other long term (current) drug therapy; Z23 Encounter for immunization; Z90.49 Acquired absence of other specified parts of digestive tract; Z87.891 Personal history of nicotine dependence; Z79.01 Long term (current) use of anticoagulants; Z80.9 Family history of malignant neoplasm, unspecified; Z82.3 Family history of stroke
CPT/HCPCS: 31500; 36415; 36430; 36600; 71045; 74018; 80048; 80053; 80162; 80202; 81001; 82533; 82550; 82553; 82803; 83735; 83880; 84100; 84443; 84478; 84484; 85025; 85027; 85610; 85730; 86850; 86900; 86901; 86920; 87040; 87045; 87070; 87077; 87086; 87088; 87186; 87205; 87493; 89055; 90471; 90686; 93005; 93010; 94002; 94003; 94640; 94660; 94667; 94668; 94799; 96365; 96375; 99291; C1751; G0008; J0330; J0610; J0692; J1100; J1160; J1642; J1650; J1956; J2020; J2370; J2704; J3010; J3370; J3475; J3480; J3490; J7030; J7040; J7050; J7060; J7614; P9016; S0164